=== PATIENT | male | born 1950 | race Hispanic/Latino ===

== ENCOUNTER 2018-09-02 12:06 | Inpatient (IN) | payer MEDICARE ==
[2018-09-02] MEDS ORDERED: TYLENOL PO ONE (12:41)
--- NOTE | 2018-09-02 12:41 | Emergency Department Report ---
ED General Adult HPI - General Chief complaint: Dyspnea/Respdistress Stated complaint: ALTERED MENTAL STATUS/DAISY Time Seen by Provider: 09/02/18 12:23 Source: EMS Mode of arrival: Stretcher Limitations: Altered Mental Status, Physical Limitation - History of Present Illness Initial comments: 68-year-old presents to ED with altered mental status. Patient and by EMS, was found at home sitting in feces. The patient's brother called EMS because he had been unable to reach him for the last 4 days. Patient's speech is slurred, able to state his name and knows that he is in the hospital. The patient has no complaints. Per EMS, pt was 92% RA upon arrival, albuterol neb initated. -: unknown Associated Symptoms: denies: chest pain, headaches - Related Data Allergies Allergy/AdvReac Type Severity Reaction Status Date / Time No Known Allergies Allergy Verified 09/02/18 13:48 ED Review of Systems ROS: Stated complaint: ALTERED MENTAL STATUS/DAISY Other details as noted in HPI Comment: Unobtainable due to pts medical conditions (altered mental status) ED Past Medical Hx - Past Medical History Previous Medical History?: Yes Hx COPD: Yes - Social History Smoking Status: Unknown if ever smoked ED Physical Exam - General Limitations: Altered Mental Status, Physical Limitation General appearance: alert, other (appears dissheveled) - Head Head exam: Present: atraumatic, normocephalic - Eye Eye exam: Present: normal appearance - ENT ENT exam: Present: mucous membranes dry - Neck Neck exam: Present: normal inspection - Respiratory Respiratory exam: Present: other (tachypneic) - Cardiovascular Cardiovascular Exam: Present: normal rhythm, tachycardia - GI/Abdominal GI/Abdominal exam: Present: soft, distended (mildly), hernia (umbilical). Absent: tenderness - Extremities Exam Extremities exam: Present: normal inspection - Neurological Exam Neurological exam: Present: alert, altered (states name, knows he is in a hospital but thinks this is [facility]), other (5/5 BUE strength; 4/5 BLE strength) - Psychiatric Psychiatric exam: Present: normal affect, normal mood - Skin Skin exam: Present: warm, dry, intact, normal color ED Course Vital Signs 09/02/18 09/02/18 09/02/18 12:08 12:14 12:15 Temperature Pulse Rate 128 H 127 H Respiratory 39 H Rate Blood Pressure 119/90 119/90 O2 Sat by Pulse 97 94 96 Oximetry 09/02/18 09/02/18 09/02/18 12:30 12:46 12:54 Temperature 100.9 F H Pulse Rate 129 H 125 H Respiratory 31 H 17 Rate Blood Pressure 119/90 130/84 O2 Sat by Pulse 94 92 Oximetry 09/02/18 09/02/18 09/02/18 13:23 13:30 13:45 Temperature Pulse Rate 119 H 121 H 115 H Respiratory 47 H 27 H 47 H Rate Blood Pressure 119/90 120/90 135/86 O2 Sat by Pulse 95 97 94 Oximetry 09/02/18 14:00 Temperature Pulse Rate 118 H Respiratory 48 H Rate Blood Pressure 131/85 O2 Sat by Pulse 92 Oximetry ED Medical Decision Making - Lab Data Result diagrams: 09/02/18 12:35 09/02/18 13:36 - EKG Data -: EKG Interpreted by Tx EKG shows normal: sinus rhythm, axis Rate: tachycardia - EKG Data Interpretation: other (RBBB, LAFB) - Radiology Data Radiology results: report reviewed, image reviewed - Medical Decision Making 68-year-old male presents to ED with altered mental status. Patient last heard from 4 days ago. Here in ED patient had slurred speech, alert and oriented to self and place. Patient moves all extremities. Here in ED patient had a low- grade temp of 100.9, and tachycardic with right bundle branch block on EKG, blood pressure normal. CT head shows no acute abnormalities. Chest x-ray normal. Patient's slightly tachypneic, however, ABG are unremarkable. UA negative for infection. Labs show evidence of dehydration with hypernatremia, elevated BUN and creatinine. Lactic acid also elevated to 3.2, so IV fluids and antibiotics given. Blood cultures and urine cultures also drawn. Drug screen and EtOH level all negative. D-dimer is elevated, so CTA Chest ordered to evaluate for PE. CTA pending. Spoke with Dr Francis, hospitalist, about patient. Agrees to admit the patient and follow-up on CTA results. - Differential Diagnosis CVA, infection, dehydration, rhabdomyolysis, intoxication, PE Critical Care Time: Yes Critical care time in (mins) excluding proc time.: 35 Critical care attestation.: If time is entered above; I have spent that time in minutes in the direct care of this critically ill patient, excluding procedure time. Critical Care Time: 35 minutes ED Disposition Clinical Impression: Altered mental status, Dehydration, Hypernatremia, Acute renal failure Disposition: OP ADMIT IP TO THIS HOSP Is pt being admited?: Yes Condition: Stable Referrals: LUCIO SELF MD [Primary Care Provider] - 3-5 Days Time of Disposition: 14:51
[2018-09-02] MEDS ORDERED: TYLENOL PR ONE (12:55)
[2018-09-02 13:01] LABS: Basophils # (Auto) 0.1 K/mm3 (0.0-0.1); Basophils % (Auto) 0.6 % (0.0-1.8); Eosinophils % (Auto) 0.1 % (0.0-4.3); Hematocrit 57.7 % (35.5-45.6); Hemoglobin 18.7 gm/dl (11.8-15.2); Lymphocytes # (Auto) 0.9 K/mm3 (1.2-5.4); Lymphocytes % (Auto) 8.8 % (13.4-35.0); Mean Corpuscular HGB Conc 32 % (32-34); Mean Corpuscular Volume 94 fl (84-94); Monocytes # (Auto) 0.8 K/mm3 (0.0-0.8); Monocytes % (Auto) 7.3 % (0.0-7.3); Red Blood Count 6.15 M/mm3 (3.65-5.03); Red Cell Distribution Width 15.5 % (13.2-15.2)
[2018-09-02 13:09] LABS: INR 1.74 (0.87-1.13)
[2018-09-02 13:10] LABS: Partial Thromboplastin Time 32.5 Sec. (24.2-36.6)
--- NOTE | 2018-09-02 13:14 | XRay Report ---
AP CHEST: HISTORY: Altered mental status, shortness of breath AP view of the chest demonstrates a normal mediastinal and cardiac contour with clear lungs and normal bony and soft tissue structures. IMPRESSION: Unremarkable AP chest.
--- NOTE | 2018-09-02 13:20 | Cat Scan Report ---
CT HEAD WITHOUT CONTRAST: HISTORY: Altered mental status. TECHNIQUE: Sequential 2.5mm CT images. COMPARISON: none. FINDINGS: Cerebral Parenchyma: Within normal limits. Cerebellum: Within normal limits. Brainstem: Within normal limits. Ventricles: Normal. Sella: Normal. Extra-axial spaces: Normal. Basal Cisterns: Normal. Intracranial Hemorrhage: None. Midline Shift: None. Calvarium: Normal. Sinuses: Normal. Mastoid Air Cells: Normal. Visualized Orbits: Normal. IMPRESSION: Cranial CT scan within normal limits.
[2018-09-02] MEDS ORDERED: NACL 0.9% 1000 ML 2,000 ML ONE (13:21)
[2018-09-02 13:31] LABS: Platelet Count 327 K/mm3 (140-440)
[2018-09-02] MEDS ORDERED: NACL 0.9% 1000 ML IV ONE (13:31)
[2018-09-02] MEDS ORDERED: ZOSYN/NS 4.5GM/100ML 4.5 GM/100 ML VIAL IV ONE (13:32)
[2018-09-02 14:27] LABS: Bacteria,Urine 1+ /HPF (Negative); Bilirubin,Urine NEG (Negative); Blood,Urine MOD (Negative); Color,Urine Amber (Yellow); Mucus,Urine FEW /HPF
[2018-09-02 14:43] LABS: Albumin 2.6 g/dL (3.9-5); Bilirubin,Direct 0.3 mg/dL (0-0.2); Calcium 10.8 mg/dL (8.4-10.2)
[2018-09-02 14:45] LABS: Amphetamine Screen,Urine PRESUMPTIVE NEGATIVE; Benzodiazepines Screen,Urine PRESUMPTIVE NEGATIVE; Cannabinoid Screen,Urine PRESUMPTIVE NEGATIVE; Cocaine Screen,Urine PRESUMPTIVE NEGATIVE; Methadone Screen,Urine PRESUMPTIVE NEGATIVE; Opiate Screen,Urine PRESUMPTIVE NEGATIVE
[2018-09-02] MEDS ORDERED: PHENERGAN PR PRN (15:03)
[2018-09-02] MEDS ORDERED: REGLAN PO PRN (15:03)
[2018-09-02] MEDS ORDERED: MILK OF MAGNESIA PO PRN (15:03)
[2018-09-02] MEDS ORDERED: ZOFRAN IV PRN (15:03)
[2018-09-02] MEDS ORDERED: TYLENOL PO PRN (15:03)
[2018-09-02] MEDS ORDERED: DULCOLAX PR PRN (15:03)
--- NOTE | 2018-09-02 15:05 | History and Physical Report ---
History of Present Illness Chief complaint: confused, weak History of present illness: 68 YO Male with Obesity Hypoventilation, COPD presents to ED for evaluation. Pt is confused, lethargic and unable to provide history. Pt history provided by his brother who is at bedside during exam and interview. As per brother, the patient has not returned phone calls over the past 4 days. As a result, the brother went to the home but the patient did not answer the door. Law Enforcement notified, and entry into the home was obtained. The patient was found down and covered in his own feces. Pt exhibited slurred speech, confusion. EMS notified and upon arrival, the patient was found to have a neurologic deficit. A code stroke was called, and the patient was transported to [facility]. Pt seen and evaluated in ED and found to have evidence of CVA as well as SIRS, Acidosis, and Encephalopathy. Pt admitted to telemetry and initiated on CVA protocol. No further history obtainable. Past History Past Medical History: COPD Past Surgical History: No surgical history, Other (reviewed) Social history: single, Lives alone, smoking. denies: alcohol abuse, prescription drug abuse, IV drug use Family history: no significant family history (reviewed) Medications and Allergies Allergies Allergy/AdvReac Type Severity Reaction Status Date / Time No Known Allergies Allergy Verified 09/02/18 13:48 Review of Systems ROS unobtainable: due to mental status Exam - Constitutional Vitals: Temp Pulse Resp BP Pulse Ox 100.9 F H 118 H 48 H 131/85 92 09/02/18 12:54 09/02/18 14:00 09/02/18 14:00 09/02/18 14:00 09/02/18 14:00 General appearance: Present: mild distress, obese - EENT Eyes: Present: miosis - Respiratory Respiratory: bilateral: diminished, rhonchi - Cardiovascular Rhythm: regular Heart Sounds: Present: S1 & S2 - Extremities Extremities: pulses symmetrical, No edema Peripheral Pulses: within normal limits - Abdominal General gastrointestinal: Present: soft, non-tender, non-distended, normal bowel sounds Male genitourinary: Present: normal - Integumentary Integumentary: Present: clear, dry, clammy, decreased turgor - Musculoskeletal Musculoskeletal: generalized weakness - Psychiatric Psychiatric: no appropriate mood/affect, no intact judgment & insight, no memory intact - Neurologic Neurologic: moves all extremities, no gait normal Results - Labs CBC & Chem 7: 09/02/18 12:35 09/02/18 13:36 Labs: Abnormal lab results 09/02/18 09/02/18 09/02/18 Range/Units 12:35 12:35 12:35 RBC 6.15 H (3.65-5.03) M/mm3 Hgb 18.7 H (11.8-15.2) gm/dl Hct 57.7 H (35.5-45.6) % RDW 15.5 H (13.2-15.2) % Lymph % (Auto) 8.8 L (13.4-35.0) % Lymph # 0.9 L (1.2-5.4) K/mm3 Seg Neutrophils % 83.2 H (40.0-70.0) % Seg Neutrophils # 8.9 H (1.8-7.7) K/mm3 PT 20.8 H (12.2-14.9) Sec. INR 1.74 H (0.87-1.13) D-Dimer 4180.35 H (0-234) ng/mlDDU Sodium (137-145) mmol/L Chloride (98-107) mmol/L BUN (9-20) mg/dL Glucose (75-100) mg/dL POC Glucose (70-105) Lactic Acid (0.7-2.0) mmol/L Calcium (8.4-10.2) mg/dL Direct Bilirubin (0-0.2) mg/dL Albumin (3.9-5) g/dL Lipase (13-60) units/L Salicylates < 0.3 L (2.8-20.0) mg/dL Acetaminophen (10.0-30.0) ug/mL 09/02/18 09/02/18 09/02/18 Range/Units 12:35 12:35 12:35 RBC (3.65-5.03) M/mm3 Hgb (11.8-15.2) gm/dl Hct (35.5-45.6) % RDW (13.2-15.2) % Lymph % (Auto) (13.4-35.0) % Lymph # (1.2-5.4) K/mm3 Seg Neutrophils % (40.0-70.0) % Seg Neutrophils # (1.8-7.7) K/mm3 PT (12.2-14.9) Sec. INR (0.87-1.13) D-Dimer (0-234) ng/mlDDU Sodium (137-145) mmol/L Chloride (98-107) mmol/L BUN (9-20) mg/dL Glucose (75-100) mg/dL POC Glucose 167 H (70-105) Lactic Acid 3.20 H* (0.7-2.0) mmol/L Calcium (8.4-10.2) mg/dL Direct Bilirubin (0-0.2) mg/dL Albumin (3.9-5) g/dL Lipase (13-60) units/L Salicylates (2.8-20.0) mg/dL Acetaminophen < 5.0 L (10.0-30.0) ug/mL 09/02/18 Range/Units 13:36 RBC (3.65-5.03) M/mm3 Hgb (11.8-15.2) gm/dl Hct (35.5-45.6) % RDW (13.2-15.2) % Lymph % (Auto) (13.4-35.0) % Lymph # (1.2-5.4) K/mm3 Seg Neutrophils % (40.0-70.0) % Seg Neutrophils # (1.8-7.7) K/mm3 PT (12.2-14.9) Sec. INR (0.87-1.13) D-Dimer (0-234) ng/mlDDU Sodium 159 H (137-145) mmol/L Chloride 114.7 H (98-107) mmol/L BUN 90 H (9-20) mg/dL Glucose 172 H (75-100) mg/dL POC Glucose (70-105) Lactic Acid (0.7-2.0) mmol/L Calcium 10.8 H (8.4-10.2) mg/dL Direct Bilirubin 0.3 H (0-0.2) mg/dL Albumin 2.6 L (3.9-5) g/dL Lipase 81 H (13-60) units/L Salicylates (2.8-20.0) mg/dL Acetaminophen (10.0-30.0) ug/mL Assessment and Plan - Patient Problems (1) CVA (cerebral vascular accident) Current Visit: Yes Status: Acute Qualifiers: Precerebral and cerebral artery: posterior cerebral artery Plan to address problem: Admit to telemetry, CT Head, MRI Brain, MRA Brain, Echo, EEG, Carotid Doppler, Antiplatelet therapy, lipid panel, neuro checks, seizure precautions, PT/OT/Speech Therapy (2) Encephalopathy Current Visit: Yes Status: Acute Plan to address problem: CT head, thyroid panel, neuro checks, (3) SIRS (systemic inflammatory response syndrome) Current Visit: Yes Status: Acute Plan to address problem: Empiric antibiotic therapy, IVF resuscitations, CBC, CMP,. (4) Obesity hypoventilation syndrome Current Visit: Yes Status: Acute Plan to address problem: supplemental oxygen, nebulizer therapy, ABG, NIPPV as clinically indicated. (5) DVT prophylaxis Current Visit: Yes Status: Acute
--- NOTE | 2018-09-02 18:36 | Vascular Lab Report ---
FINAL REPORT PROCEDURE: Bilateral duplex carotid artery ultrasound. TECHNIQUE: Duplex Doppler ultrasound of the common, internal and external carotid arteries and the v ertebral arteries was performed bilaterally. Hsu scale imaging, velocity spectral waveform analysis, and color flow Doppler were employed. CPT 35900 HISTORY: Stroke. COMPARISON: No prior studies are available for comparison. FINDINGS: Note: Measurement of carotid stenosis is based on flow velocity values that correlate with the [place] Symptomatic Carotid Endarterectomy Trial (NASCET) based stenosis criteria using the internal carotid artery diameter as the denominator for stenosis calculation. CPT 3100F Right side: The right common carotid artery appears patent visually. There is no significant plaque i dentified. There is a small amount of plaque identified at the bifurcation. The peak systolic velocit y measurements are as follows: Distal right common carotid artery 59.9 centimeters/second, mid right internal carotid artery 90.4 centimeters/second, right internal carotid/common carotid velocity ratio 1.51. These values are within normal limits and indicate a less than 50 percent stenosis of the inte rnal carotid artery. Antegrade flow is confirmed in the right vertebral artery. Left-side: The left common carotid artery appears widely patent. There is mild atherosclerotic plaque at the bifurcation. The peak systolic velocity measurements are as follows: Distal common carotid ar roseann 51.8 centimeters/second, distal internal carotid artery 44.1 centimeters/second, left internal c arotid/common carotid velocity ratio 0.85. These values are also within normal limits and indicate a less than 50 percent stenosis of the internal carotid artery. Antegrade flow is confirmed in the left vertebral artery. IMPRESSION: Less than 50 percent stenosis of both internal carotid arteries.
--- NOTE | 2018-09-02 21:35 | Magnetic Resonance Report ---
FINAL REPORT PROCEDURE: MR MRA/MRV HEAD WO CON TECHNIQUE: Axial 3-D [id number] MR angiography of the [place] and brain was performed. The source images were reconstructed in various views using maximum intensity projection. HISTORY: strokeinpatient - some pt motion COMPARISON: No prior studies are available for comparison. FINDINGS: Vertebral arteries: Normal. Basilar artery: Normal. Internal carotid arteries: Normal. Anterior cerebral arteries: Normal. Middle cerebral arteries: Normal. Posterior cerebral arteries: Normal. Branch occlusions: None. Vascular malformations: None. IMPRESSION: Normal Examination
--- NOTE | 2018-09-02 21:38 | Magnetic Resonance Report ---
FINAL REPORT PROCEDURE: MR BRAIN WO CON TECHNIQUE: Magnetic resonance imaging of the brain was performed without contrast material. HISTORY: strokeinpatient - pt motion; pt would not allow me to repeat coronal sequence COMPARISON: No prior studies are available for comparison. FINDINGS: Skull base and calvarium: Normal. Paranasal sinuses: There is fluid in the right frontal sinus.. Cerebellum: No evidence of hemorrhage, ischemia or mass. Brainstem: No evidence of hemorrhage, ischemia or mass. Cerebrum: No evidence of hemorrhage, ischemia or mass. T2 and FLAIR images demonstrate high signal in tensity in the deep white matter consistent with chronic ischemic gliosis. Diffusion images demonstra te no evidence of acute ischemic event. Ventricles: There is moderate central and cortical atrophy. There is no hydrocephalus or asymmetry.. Pituitary gland and sella: Normal. Globes and orbits: Normal. Vasculature: Normal arterial and venous flow voids. Other: None. IMPRESSION: There are chronic involutional and ischemic changes. There is no evidence of acute ischemic injury. T here is no hemorrhage, edema, mass, mass effect or midline shift.
[2018-09-03] MEDS ORDERED: LOPRESSOR IV NR (04:43)
--- NOTE | 2018-09-03 09:53 | Cat Scan Report ---
CTA CHEST: HISTORY: Elevated d-dimer. COMPARISON: none. TECHNIQUE: Helical CT in 1.25mm intervals following IV contrast. Pulmonary embolus protocol. Sagittal and coronal reformatted images. Rotational MIP images. FINDINGS: Contrast bolus is satisfactory. No pulmonary embolus is identified. Thyroid gland: Normal. Tracheobronchial tree: Normal. Esophagus: Normal. Heart: Normal. Pericardium: Normal. Mediastinum: Normal. Lung Hopper: There are moderate underlying centrilobular emphysematous changes. Groundglass infiltrate is identified in the posterior segment of the right lower lobe which is concerning for pneumonia. The remainder of the lungs are clear. No evidence for mass or nodule. Pleural Spaces: Normal. Musculoskeletal: Intact. Moderate thoracic spondylosis is noted. IMPRESSION: No evidence for pulmonary embolus. Emphysema. Right lower lobe infiltrate concerning for pneumonia.
[2018-09-03] MEDS ORDERED: ASPIRIN PO SCH (10:00)
[2018-09-03 11:55] LABS: INR 1.86 (0.87-1.13)
[2018-09-03 11:59] LABS: Calcium 10.2 mg/dL (8.4-10.2)
[2018-09-03] MEDS ORDERED: NACL 0.45% 1000 ML 1,000 ML IV SCH (12:00)
[2018-09-03 12:02] LABS: Alanine Aminotransferase 20 units/L (7-56); Albumin 2.1 g/dL (3.9-5)
[2018-09-03 12:05] LABS: Bilirubin,Direct < 0.2 mg/dL (0-0.2)
[2018-09-03] MEDS: ATIVAN IV PRN ×2 (13:02→21:41)
--- NOTE | 2018-09-03 14:41 | Progress Note ---
Assessment and Plan Assessment and plan: 68 YO Male with Obesity Hypoventilation, COPD presents to ED for evaluation. Pt is confused, lethargic and unable to provide history. Pt history provided by his brother who is at bedside during exam and interview. As per brother, the patient has not returned phone calls over the past 4 days. As a result, the brother went to the home but the patient did not answer the door. Law Enforcement notified, and entry into the home was obtained. The patient was found down and covered in his own feces. Pt exhibited slurred speech, confusion. EMS notified and upon arrival, the patient was found to have a neurologic deficit. A code stroke was called, and the patient was transported to [facility]. Pt seen and evaluated in ED and found to have evidence of CVA as well as SIRS, Acidosis, and Encephalopathy. Pt admitted to telemetry and initiated on CVA protocol. Acute Metabolic encephalopathy Hypernatremia Aspiration Pneumonia Obesity Hypoventilation syndrome ETOH use disorder hYPOTHYRODISIM Secondary Coagulopathy ?UNDERLYING LIVER DISEASE VS IATROGENIC MEDICATION Sepsis Plan Continue supportive care Start D5W and obtain serial Na level Start CIWA protocol Seizure precautions Obtain HOME MEDS LIST Continue Empiric abx Aspiration precautions DVT/GI prophy Call placed to family to obtain more clinical information History Interval history: Patient seen and examined, remains with some encephalopathic changes but more awake than when he was admitted. Denies any chest pain, nausea, vomiting at this time. Hospitalist Physical - Constitutional Vitals: Temp Pulse Resp BP Pulse Ox 98.1 F 94 H 36 H 140/83 92 09/03/18 07:57 09/03/18 07:57 09/03/18 07:57 09/03/18 07:57 09/03/18 07:57 General appearance: Present: mild distress, obese, disheveled - EENT Eyes: Present: PERRL, EOM intact ENT: poor dentition - Neck Neck: Present: supple, normal ROM - Respiratory Respiratory effort: normal Respiratory: bilateral: CTA - Cardiovascular Rhythm: regular Heart Sounds: Present: S1 & S2. Absent: systolic murmur - Extremities Extremities: no ischemia, pulses intact, pulses symmetrical, No edema, normal temperature, normal color, Full ROM Peripheral Pulses: within normal limits - Abdominal General gastrointestinal: soft, non-tender, non-distended - Integumentary Integumentary: Present: clear, warm - Psychiatric Psychiatric: appropriate mood/affect, intact judgment & insight, memory intact, cooperative - Neurologic Neurologic: CNII-XII intact, moves all extremities - Allied Health Allied health notes reviewed: nursing Results - Labs CBC & Chem 7: 09/02/18 12:35 09/03/18 11:26 Labs: Laboratory Last Values WBC 10.8 K/mm3 (4.5-11.0) 09/02/18 12:35 RBC 6.15 M/mm3 (3.65-5.03) H 09/02/18 12:35 Hgb 18.7 gm/dl (11.8-15.2) H 09/02/18 12:35 Hct 57.7 % (35.5-45.6) H 09/02/18 12:35 MCV 94 fl (84-94) 09/02/18 12:35 MCH 30 pg (28-32) 09/02/18 12:35 MCHC 32 % (32-34) 09/02/18 12:35 RDW 15.5 % (13.2-15.2) H 09/02/18 12:35 Plt Count 327 K/mm3 (140-440) 09/02/18 12:35 Lymph % (Auto) 8.8 % (13.4-35.0) L 09/02/18 12:35 [place] % (Auto) 7.3 % (0.0-7.3) 09/02/18 12:35 Eos % (Auto) 0.1 % (0.0-4.3) 09/02/18 12:35 Baso % (Auto) 0.6 % (0.0-1.8) 09/02/18 12:35 Lymph # 0.9 K/mm3 (1.2-5.4) L 09/02/18 12:35 [place] # 0.8 K/mm3 (0.0-0.8) 09/02/18 12:35 Eos # 0.0 K/mm3 (0.0-0.4) 09/02/18 12:35 Baso # 0.1 K/mm3 (0.0-0.1) 09/02/18 12:35 Seg Neutrophils % 83.2 % (40.0-70.0) H 09/02/18 12:35 Seg Neutrophils # 8.9 K/mm3 (1.8-7.7) H 09/02/18 12:35 PT 21.8 Sec. (12.2-14.9) H 09/03/18 11:26 INR 1.86 (0.87-1.13) H 09/03/18 11:26 APTT 32.5 Sec. (24.2-36.6) 09/02/18 12:35 D-Dimer 4180.35 ng/mlDDU (0-234) H 09/02/18 12:35 Sodium 160 mmol/L (137-145) H 09/03/18 11:26 Potassium 4.4 mmol/L (3.6-5.0) 09/03/18 11:26 Chloride 122.6 mmol/L (98-107) H 09/03/18 11:26 Carbon Dioxide 26 mmol/L (22-30) 09/03/18 11:26 Anion Gap 16 mmol/L 09/03/18 11:26 BUN 69 mg/dL (9-20) H 09/03/18 11:26 Creatinine 1.3 mg/dL (0.8-1.5) 09/03/18 11:26 Estimated GFR 55 ml/min 09/03/18 11:26 BUN/Creatinine Ratio 53 % 09/03/18 11:26 Glucose 127 mg/dL (75-100) H 09/03/18 11:26 POC Glucose 167 (70-105) H 09/02/18 12:35 Lactic Acid 1.30 mmol/L (0.7-2.0) 09/02/18 16:45 Calcium 10.2 mg/dL (8.4-10.2) 09/03/18 11:26 Total Bilirubin 0.60 mg/dL (0.1-1.2) 09/03/18 11:26 Direct Bilirubin < 0.2 mg/dL (0-0.2) 09/03/18 11:26 Indirect Bilirubin 0.3 mg/dL 09/02/18 13:36 AST 27 units/L (5-40) 09/03/18 11:26 ALT 20 units/L (7-56) 09/03/18 11:26 Alkaline Phosphatase 67 units/L (35-129) 09/03/18 11:26 Ammonia 75.0 umol/L (25-60) H 09/03/18 11:26 Total Creatine Kinase 98 units/L (55-170) 09/02/18 13:36 Troponin T 0.018 ng/mL (0.00-0.029) 09/02/18 13:36 NT-Pro-B Natriuret Pep 873.7 pg/mL (0-900) 09/02/18 13:36 Total Protein 6.8 g/dL (6.3-8.2) 09/03/18 11:26 Albumin 2.1 g/dL (3.9-5) L 09/03/18 11:26 Albumin/Globulin Ratio 0.4 % 09/03/18 11:26 Lipase 81 units/L (13-60) H 09/02/18 13:36 TSH < 0.005 mlU/mL (0.270-4.200) L 09/02/18 16:45 Free T4 2.40 ng/dL (0.76-1.46) H 09/02/18 16:45 Urine Color [place] (Yellow) 09/02/18 14:06 Urine Turbidity Slightly-cloudy (Clear) 09/02/18 14:06 Urine pH 5.0 (5.0-7.0) 09/02/18 14:06 Ur Specific [place] 1.017 (1.003-1.030) 09/02/18 14:06 Urine Protein 30 mg/dl mg/dL (Negative) 09/02/18 14:06 Urine Glucose (UA) Neg mg/dL (Negative) 09/02/18 14:06 Urine Ketones Neg mg/dL (Negative) 09/02/18 14:06 Urine Blood Mod (Negative) 09/02/18 14:06 Urine Nitrite Neg (Negative) 09/02/18 14:06 Urine Bilirubin Neg (Negative) 09/02/18 14:06 Urine Urobilinogen 4.0 mg/dL (<2.0) 09/02/18 14:06 Ur Leukocyte Esterase Neg (Negative) 09/02/18 14:06 Urine WBC (Auto) 3.0 /HPF (0.0-6.0) 09/02/18 14:06 Urine RBC (Auto) 56.0 /HPF (0.0-6.0) 09/02/18 14:06 U Epithel Cells (Auto) < 1.0 /HPF (0-13.0) 09/02/18 14:06 Urine Bacteria (Auto) 1+ /HPF (Negative) 09/02/18 14:06 Urine Mucus Few /HPF 09/02/18 14:06 Salicylates < 0.3 mg/dL (2.8-20.0) L 09/02/18 12:35 Urine Opiates Screen Presumptive negative 09/02/18 13:59 Urine Methadone Screen Presumptive negative 09/02/18 13:59 Acetaminophen < 5.0 ug/mL (10.0-30.0) L 09/02/18 12:35 Ur Barbiturates Screen Presumptive negative 09/02/18 13:59 Ur Phencyclidine Scrn Presumptive negative 09/02/18 13:59 Ur Amphetamines Screen Presumptive negative 09/02/18 13:59 U Benzodiazepines Scrn Presumptive negative 09/02/18 13:59 Urine Cocaine Screen Presumptive negative 09/02/18 13:59 U Marijuana (THC) Screen Presumptive negative 09/02/18 13:59 Drugs of Abuse Note Disclamer 09/02/18 13:59 Plasma/Serum Alcohol < 0.01 % (0-0.07) 09/02/18 12:35 - Imaging and Cardiology Chest x-ray: image reviewed (PNEMONIA) CT Scan - head: image reviewed (no CVA)
--- NOTE | 2018-09-03 15:56 | Vascular Lab Report ---
FINAL REPORT EXAM: VL VENOUS DUPLEX LE BILAT HISTORY: dvt TECHNIQUE: Ultrasound examination of the right lower extremity venous system Ultrasound examination of the left lower extremity venous system PRIORS: None. FINDINGS: Right leg: Normal compressibility, vascular patency, and augmentation are present diffusely throughout the visua lized portion of the deep veins of the right leg. No abnormal intraluminal echoes are visualized to suggest thrombus. Left leg: Normal compressibility, vascular patency, and augmentation are present diffusely throughout the visua lized portion of the deep veins of the left leg. No abnormal intraluminal echoes are visualized to s uggest thrombus. IMPRESSION: No sonographic evidence of DVT in the right leg No sonographic evidence of DVT in the left leg
[2018-09-03 17:14] LABS: Chol/HDL Ratio 5.52 %
[2018-09-03] MEDS: D5W 1,000 ML IV SCH (18:16)
[2018-09-04] MEDS ORDERED: ANUCORT-HC PR ONE (04:59)
--- NOTE | 2018-09-04 05:09 | Event Note ---
Date: 09/04/18 PATIENT NOTED BY NURSE TO HAVE BRIGHT RED BLOOD IN THE RECTUM . NO HISTORY OF PAIN ,NAUSEA OR VOMITING, NO DIZZYNESS VITAL SIGN STABLE. PLAN; 1. STAT CBC FOLLOWED BY H/H Q6H 2. G.I CONSULT WITH [employer] 3. I.V PROTONIX 40MG BID 4. ANUSOL HC SUPPOSITORY X1 DOSE 5. NPO UNTIL SEEN BY Molly 6.CONTINUE CURRENT I.V FLUID
[2018-09-04 05:36] LABS: Basophils % (Auto) 0.3 % (0.0-1.8); Eosinophils # (Auto) 0.1 K/mm3 (0.0-0.4); Hemoglobin 15.5 gm/dl (11.8-15.2); Lymphocytes # (Auto) 0.8 K/mm3 (1.2-5.4); Lymphocytes % (Auto) 11.8 % (13.4-35.0); Mean Corpuscular HGB Conc 32 % (32-34); Mean Corpuscular Volume 94 fl (84-94); Monocytes # (Auto) 0.5 K/mm3 (0.0-0.8); Monocytes % (Auto) 6.8 % (0.0-7.3); Platelet Count 268 K/mm3 (140-440); Red Blood Count 5.12 M/mm3 (3.65-5.03); Red Cell Distribution Width 15.9 % (13.2-15.2)
[2018-09-04] MEDS: D5W 1,000 ML IV SCH (05:37)
[2018-09-04 06:01] LABS: Alanine Aminotransferase 18 units/L (7-56); Albumin 2.7 g/dL (3.9-5); BUN/Creatinine Ratio 57; Blood Urea Nitrogen 57 mg/dL (9-20); Hemolysis Index 6
--- NOTE | 2018-09-04 07:53 | Progress Note ---
Assessment and Plan Assessment and plan: 68 YO Male with Obesity Hypoventilation, COPD presents to ED for evaluation. Pt is confused, lethargic and unable to provide history. Pt history provided by his brother who is at bedside during exam and interview. As per brother, the patient has not returned phone calls over the past 4 days. As a result, the brother went to the home but the patient did not answer the door. Law Enforcement notified, and entry into the home was obtained. The patient was found down and covered in his own feces. Pt exhibited slurred speech, confusion. EMS notified and upon arrival, the patient was found to have a neurologic deficit. A code stroke was called, and the patient was transported to [facility]. Pt seen and evaluated in ED and found to have evidence of CVA as well as SIRS, Acidosis, and Encephalopathy. Pt admitted to telemetry and initiated on CVA protocol. Acute Metabolic encephalopathy Hypernatremia Rectal Bleed. Aspiration Pneumonia Obesity Hypoventilation syndrome ETOH use disorder hYPOTHYRODISIM Moderate Protien calorie Malnutrition Secondary Coagulopathy ?UNDERLYING LIVER DISEASE VS IATROGENIC MEDICATION Sepsis Plan Continue supportive care, clinically has not been requiring ativan. Continue D5W and obtain serial Na level Start FREE WATER AT 250CC Q4HR Nephrology consult to assist Discontinue ASA. NO CVA and now with rectal bleed. Await GI input. Start CIWA protocol Seizure precautions Obtain HOME MEDS LIST-PENDING Continue Empiric abx Aspiration precautions DVT/GI prophy Call placed to family to obtain more clinical information Still awaiting home meds Discussed with Nursing staff and also GI team History Interval history: Patient seen and examined, remains confused. no other complaints. Hospitalist Physical - Physical exam Narrative exam: General appearance: Present: mild distress, obese, disheveled - EENT Eyes: Present: PERRL, EOM intact ENT: poor dentition - Neck Neck: Present: supple, normal ROM - Respiratory Respiratory effort: normal Respiratory: bilateral: CTA - Cardiovascular Rhythm: regular Heart Sounds: Present: S1 & S2. Absent: systolic murmur - Extremities Extremities: no ischemia, pulses intact, pulses symmetrical, No edema, normal temperature, normal color, Full ROM Peripheral Pulses: within normal limits - Abdominal General gastrointestinal: soft, non-tender, non-distended - Integumentary Integumentary: Present: clear, warm- Hemorrhoids - Psychiatric Psychiatric: Confuse - Neurologic Neurologic: CNII-XII intact, moves all extremities, confused - Allied Health Allied health notes reviewed: nursing - Constitutional Vitals: Temp Pulse Resp BP Pulse Ox 98.1 F 92 H 19 136/98 97 09/04/18 04:13 09/04/18 04:56 09/04/18 04:13 09/04/18 04:13 09/04/18 04:13 General appearance: Present: mild distress, obese, disheveled Results - Labs CBC & Chem 7: 09/04/18 13:35 09/04/18 13:35 Labs: Laboratory Last Values WBC 6.9 K/mm3 (4.5-11.0) 09/04/18 05:20 RBC 5.12 M/mm3 (3.65-5.03) H 09/04/18 05:20 Hgb 15.5 gm/dl (11.8-15.2) H D 09/04/18 05:20 Hct 48.0 % (35.5-45.6) H D 09/04/18 05:20 MCV 94 fl (84-94) 09/04/18 05:20 MCH 30 pg (28-32) 09/04/18 05:20 MCHC 32 % (32-34) 09/04/18 05:20 RDW 15.9 % (13.2-15.2) H 09/04/18 05:20 Plt Count 268 K/mm3 (140-440) 09/04/18 05:20 Lymph % (Auto) 11.8 % (13.4-35.0) L 09/04/18 05:20 [place] % (Auto) 6.8 % (0.0-7.3) 09/04/18 05:20 Eos % (Auto) 1.0 % (0.0-4.3) 09/04/18 05:20 Baso % (Auto) 0.3 % (0.0-1.8) 09/04/18 05:20 Lymph # 0.8 K/mm3 (1.2-5.4) L 09/04/18 05:20 [place] # 0.5 K/mm3 (0.0-0.8) 09/04/18 05:20 Eos # 0.1 K/mm3 (0.0-0.4) 09/04/18 05:20 Baso # 0.0 K/mm3 (0.0-0.1) 09/04/18 05:20 Seg Neutrophils % 80.1 % (40.0-70.0) H 09/04/18 05:20 Seg Neutrophils # 5.5 K/mm3 (1.8-7.7) 09/04/18 05:20 PT 21.8 Sec. (12.2-14.9) H 09/03/18 11:26 INR 1.86 (0.87-1.13) H 09/03/18 11:26 APTT 32.5 Sec. (24.2-36.6) 09/02/18 12:35 D-Dimer 4180.35 ng/mlDDU (0-234) H 09/02/18 12:35 Sodium 166 mmol/L (137-145) H* 09/04/18 05:20 Potassium 4.2 mmol/L (3.6-5.0) 09/04/18 05:20 Chloride 129.2 mmol/L (98-107) H 09/04/18 05:20 Carbon Dioxide 28 mmol/L (22-30) 09/04/18 05:20 Anion Gap 15 mmol/L 09/04/18 05:20 BUN 57 mg/dL (9-20) H 09/04/18 05:20 Creatinine 1.0 mg/dL (0.8-1.5) 09/04/18 05:20 Estimated GFR > 60 ml/min 09/04/18 05:20 BUN/Creatinine Ratio 57 % 09/04/18 05:20 Glucose 137 mg/dL (75-100) H 09/04/18 05:20 POC Glucose 167 (70-105) H 09/02/18 12:35 Lactic Acid 1.30 mmol/L (0.7-2.0) 09/02/18 16:45 Calcium 10.0 mg/dL (8.4-10.2) 09/04/18 05:20 Total Bilirubin 0.60 mg/dL (0.1-1.2) 09/04/18 05:20 Direct Bilirubin < 0.2 mg/dL (0-0.2) 09/03/18 11:26 Indirect Bilirubin 0.3 mg/dL 09/02/18 13:36 AST 21 units/L (5-40) 09/04/18 05:20 ALT 18 units/L (7-56) 09/04/18 05:20 Alkaline Phosphatase 66 units/L (35-129) 09/04/18 05:20 Ammonia 75.0 umol/L (25-60) H 09/03/18 11:26 Total Creatine Kinase 98 units/L (55-170) 09/02/18 13:36 Troponin T 0.018 ng/mL (0.00-0.029) 09/02/18 13:36 NT-Pro-B Natriuret Pep 873.7 pg/mL (0-900) 09/02/18 13:36 Total Protein 5.8 g/dL (6.3-8.2) L 09/04/18 05:20 Albumin 2.7 g/dL (3.9-5) L 09/04/18 05:20 Albumin/Globulin Ratio 0.9 % 09/04/18 05:20 Triglycerides 150 mg/dL (2-149) H 09/03/18 Unknown Cholesterol 116 mg/dL (50-199) 09/03/18 Unknown LDL Cholesterol Direct 69 mg/dL (50-130) 09/03/18 Unknown HDL Cholesterol 21 mg/dL (40-59) L 09/03/18 Unknown Cholesterol/HDL Ratio 5.52 % 09/03/18 Unknown Lipase 81 units/L (13-60) H 09/02/18 13:36 TSH < 0.005 mlU/mL (0.270-4.200) L 09/02/18 16:45 Free T4 2.40 ng/dL (0.76-1.46) H 09/02/18 16:45 Urine Color [place] (Yellow) 09/02/18 14:06 Urine Turbidity Slightly-cloudy (Clear) 09/02/18 14:06 Urine pH 5.0 (5.0-7.0) 09/02/18 14:06 Ur Specific [place] 1.017 (1.003-1.030) 09/02/18 14:06 Urine Protein 30 mg/dl mg/dL (Negative) 09/02/18 14:06 Urine Glucose (UA) Neg mg/dL (Negative) 09/02/18 14:06 Urine Ketones Neg mg/dL (Negative) 09/02/18 14:06 Urine Blood Mod (Negative) 09/02/18 14:06 Urine Nitrite Neg (Negative) 09/02/18 14:06 Urine Bilirubin Neg (Negative) 09/02/18 14:06 Urine Urobilinogen 4.0 mg/dL (<2.0) 09/02/18 14:06 Ur Leukocyte Esterase Neg (Negative) 09/02/18 14:06 Urine WBC (Auto) 3.0 /HPF (0.0-6.0) 09/02/18 14:06 Urine RBC (Auto) 56.0 /HPF (0.0-6.0) 09/02/18 14:06 U Epithel Cells (Auto) < 1.0 /HPF (0-13.0) 09/02/18 14:06 Urine Bacteria (Auto) 1+ /HPF (Negative) 09/02/18 14:06 Urine Mucus Few /HPF 09/02/18 14:06 Salicylates < 0.3 mg/dL (2.8-20.0) L 09/02/18 12:35 Urine Opiates Screen Presumptive negative 09/02/18 13:59 Urine Methadone Screen Presumptive negative 09/02/18 13:59 Acetaminophen < 5.0 ug/mL (10.0-30.0) L 09/02/18 12:35 Ur Barbiturates Screen Presumptive negative 09/02/18 13:59 Ur Phencyclidine Scrn Presumptive negative 09/02/18 13:59 Ur Amphetamines Screen Presumptive negative 09/02/18 13:59 U Benzodiazepines Scrn Presumptive negative 09/02/18 13:59 Urine Cocaine Screen Presumptive negative 09/02/18 13:59 U Marijuana (THC) Screen Presumptive negative 09/02/18 13:59 Drugs of Abuse Note Disclamer 09/02/18 13:59 Plasma/Serum Alcohol < 0.01 % (0-0.07) 09/02/18 12:35
[2018-09-04] MEDS: PROTONIX IV SCH ×2 (10:00→22:10)
--- NOTE | 2018-09-04 13:14 | Gastroenterology Consultation ---
<HAROON CHURCH - Last Filed: 09/04/18 13:56> History of Present Illness - Reason for Consult Consult date: 09/04/18 rectal bleeding Requesting physician: LILY PARRA - History of Present Illness Patient is a 68 y/o male with PMH of obesity and COPD who was brought to ED after being found down at home with slurred speech and confusion. Upon admission head CT negative. Currently being treated for acute metabolic encephalopathy, hypernatremia, aspiration pneumonia, obesity hypoventilation syndrome, ETOH use disorder, hypothyroidism, moderate protein calorie malnutrition, secondary coagulopathy, and sepsis. He had an episode of rectal bleeding yesterday per nursing to which GI has been consulted. Patient is currently confused, lethargic and unable to provide history. No family at bedside. History obtained via chart review. Upon exam, rectal revealed large external hemorrhoids with old blood and brown stool. No melena or hematochezia. Prevsious GI history unknown. Past History Past Medical History: COPD Past Surgical History: No surgical history, Other (reviewed) Social history: single, Lives alone, smoking. denies: alcohol abuse, pres cription drug abuse, IV drug use Family history: no significant family history (reviewed) Medications and Allergies Allergies Allergy/AdvReac Type Severity Reaction Status Date / Time No Known Allergies Allergy Verified 09/02/18 13:48 Active Meds: Active Medications Acetaminophen (Tylenol) 650 mg PO Q4H PRN PRN Reason: Pain, Mild (1-3) Atorvastatin Calcium (Lipitor) 40 mg PO QHS ROXY Last Admin: 09/03/18 21:34 Dose: 40 mg Documented by: Bisacodyl (Dulcolax) 10 mg AL QDAY PRN PRN Reason: Constipation Dextrose (D5w) 1,000 mls @ 125 mls/hr IV DIRECT ROXY Lorazepam (Ativan) 4 mg IV Q1HR PRN PRN Reason: CIWA-Ar 16-25 Lorazepam (Ativan) 4 mg IV Q15MIN PRN PRN Reason: CIWA-Ar >25 Magnesium Hydroxide (Milk Of Magnesia) 30 ml PO Q4H PRN PRN Reason: Constipation Metoclopramide HCl (Reglan) 10 mg PO Q6H PRN PRN Reason: Nausea And Vomiting Ondansetron HCl (Zofran) 4 mg IV Q8H PRN PRN Reason: Nausea And Vomiting Pantoprazole Sodium (Protonix) 40 mg IV BID ROXY Promethazine HCl (Phenergan) 25 mg AL Q6H PRN PRN Reason: Nausea And Vomiting Sodium Chloride (Sodium Chloride Flush Syringe 10 Ml) 10 ml IV PRN PRN PRN Reason: LINE FLUSH medications reviewed/updated as required Review of Systems - Review of Systems ROS unobtainable: due to mental status Exam - Constitutional Vital Signs: Temp Pulse Resp BP Pulse Ox 98.1 F 92 H 44 H 145/100 97 09/04/18 08:06 09/04/18 04:56 09/04/18 08:06 09/04/18 08:06 09/04/18 04:13 General appearance: other (confused, lethargic) - Respiratory Respiratory: bilateral: CTA (anterior) - Cardiovascular Rhythm: regular Heart Sounds: Present: S1 & S2 - Gastrointestinal General gastrointestinal: Present: soft, non-distended, normal bowel sounds Rectal Exam: hemorrhoids (large external hemorrhoids with old blood), stool brown, other (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-Elizabeth NAVARRO) - Labs CBC & Chem 7: 09/04/18 05:20 09/04/18 09:11 Lab Results: Laboratory Results - last 24 hr 09/03/18 09/03/18 09/03/18 15:39 20:23 Unknown WBC RBC Hgb Hct MCV MCH MCHC RDW Plt Count Lymph % (Auto) [place] % (Auto) Eos % (Auto) Baso % (Auto) Lymph # [place] # Eos # Baso # Seg Neutrophils % Seg Neutrophils # Sodium 160 H 160 H Potassium Chloride Carbon Dioxide Anion Gap BUN Creatinine Estimated GFR BUN/Creatinine Ratio Glucose Calcium Total Bilirubin AST ALT Alkaline Phosphatase Total Protein Albumin Albumin/Globulin Ratio Triglycerides 150 H Cholesterol 116 LDL Cholesterol Direct 69 HDL Cholesterol 21 L Cholesterol/HDL Ratio 5.52 09/04/18 09/04/18 09/04/18 02:38 05:20 05:20 WBC 6.9 RBC 5.12 H Hgb 15.5 H D Hct 48.0 H D MCV 94 MCH 30 MCHC 32 RDW 15.9 H Plt Count 268 Lymph % (Auto) 11.8 L [place] % (Auto) 6.8 Eos % (Auto) 1.0 Baso % (Auto) 0.3 Lymph # 0.8 L [place] # 0.5 Eos # 0.1 Baso # 0.0 Seg Neutrophils % 80.1 H Seg Neutrophils # 5.5 Sodium 160 H 166 H* Potassium 4.2 Chloride 129.2 H Carbon Dioxide 28 Anion Gap 15 BUN 57 H Creatinine 1.0 Estimated GFR > 60 BUN/Creatinine Ratio 57 Glucose 137 H Calcium 10.0 Total Bilirubin 0.60 AST 21 ALT 18 Alkaline Phosphatase 66 Total Protein 5.8 L Albumin 2.7 L Albumin/Globulin Ratio 0.9 Triglycerides Cholesterol LDL Cholesterol Direct HDL Cholesterol Cholesterol/HDL Ratio 09/04/18 09:11 WBC RBC Hgb Hct MCV MCH MCHC RDW Plt Count Lymph % (Auto) [place] % (Auto) Eos % (Auto) Baso % (Auto) Lymph # [place] # Eos # Baso # Seg Neutrophils % Seg Neutrophils # Sodium 166 H* Potassium Chloride Carbon Dioxide Anion Gap BUN Creatinine Estimated GFR BUN/Creatinine Ratio Glucose Calcium Total Bilirubin AST ALT Alkaline Phosphatase Total Protein Albumin Albumin/Globulin Ratio Triglycerides Cholesterol LDL Cholesterol Direct HDL Cholesterol Cholesterol/HDL Ratio Assessment and Plan 1.rectal bleeding -H/H 15.5/48.0 -continue to monitor H/H and transfuse as needed -1 episode of rectal bleeding yesterday per nursing- rectal exam today revealed large external hemorrhoids with old blood and brown stool (no melena or hematemesis) -HD stable -etiology-likely 2/2 hemorrhoids vs other -no plans for colonoscopy at this time unless overt bleeding develops, recommend outpatient colonoscopy if not up to date -start on topical steroids for hemorrhoids- consider colorectal surgery consult if symptoms persist -okay for anticoagulants if needed -continue PPI and supportive care -further recommendations to follow <FARHAD DARLING - Last Filed: 09/04/18 14:30> Medications and Allergies Active Meds: Active Medications Acetaminophen (Tylenol) 650 mg PO Q4H PRN PRN Reason: Pain, Mild (1-3) Atorvastatin Calcium (Lipitor) 40 mg PO QHS ROXY Last Admin: 09/03/18 21:34 Dose: 40 mg Documented by: Bisacodyl (Dulcolax) 10 mg AL QDAY PRN PRN Reason: Constipation Hydrocortisone Acetate (Proctosol-Hc) 1 applic AL Q8H ROXY Dextrose (D5w) 1,000 mls @ 125 mls/hr IV DIRECT ROXY Lorazepam (Ativan) 4 mg IV Q1HR PRN PRN Reason: CIWA-Ar 16-25 Lorazepam (Ativan) 4 mg IV Q15MIN PRN PRN Reason: CIWA-Ar >25 Magnesium Hydroxide (Milk Of Magnesia) 30 ml PO Q4H PRN PRN Reason: Constipation Metoclopramide HCl (Reglan) 10 mg PO Q6H PRN PRN Reason: Nausea And Vomiting Ondansetron HCl (Zofran) 4 mg IV Q8H PRN PRN Reason: Nausea And Vomiting Pantoprazole Sodium (Protonix) 40 mg IV BID ROXY Last Admin: 09/04/18 10:00 Dose: 40 mg Documented by: Promethazine HCl (Phenergan) 25 mg AL Q6H PRN PRN Reason: Nausea And Vomiting Sodium Chloride (Sodium Chloride Flush Syringe 10 Ml) 10 ml IV PRN PRN PRN Reason: LINE FLUSH Exam - Constitutional Vital Signs: Temp Pulse Resp BP Pulse Ox 98.2 F 95 H 40 H 139/95 94 09/04/18 12:37 09/04/18 12:37 09/04/18 12:37 09/04/18 12:37 09/04/18 12:37 - Labs CBC & Chem 7: 09/04/18 13:35 09/04/18 09:11 Lab Results: Laboratory Results - last 24 hr 09/03/18 09/03/18 09/03/18 15:39 20:23 Unknown WBC RBC Hgb Hct MCV MCH MCHC RDW Plt Count Lymph % (Auto) [place] % (Auto) Eos % (Auto) Baso % (Auto) Lymph # [place] # Eos # Baso # Seg Neutrophils % Seg Neutrophils # Sodium 160 H 160 H Potassium Chloride Carbon Dioxide Anion Gap BUN Creatinine Estimated GFR BUN/Creatinine Ratio Glucose Calcium Total Bilirubin AST ALT Alkaline Phosphatase Total Protein Albumin Albumin/Globulin Ratio Triglycerides 150 H Cholesterol 116 LDL Cholesterol Direct 69 HDL Cholesterol 21 L Cholesterol/HDL Ratio 5.52 09/04/18 09/04/18 09/04/18 02:38 05:20 05:20 WBC 6.9 RBC 5.12 H Hgb 15.5 H D Hct 48.0 H D MCV 94 MCH 30 MCHC 32 RDW 15.9 H Plt Count 268 Lymph % (Auto) 11.8 L [place] % (Auto) 6.8 Eos % (Auto) 1.0 Baso % (Auto) 0.3 Lymph # 0.8 L [place] # 0.5 Eos # 0.1 Baso # 0.0 Seg Neutrophils % 80.1 H Seg Neutrophils # 5.5 Sodium 160 H 166 H* Potassium 4.2 Chloride 129.2 H Carbon Dioxide 28 Anion Gap 15 BUN 57 H Creatinine 1.0 Estimated GFR > 60 BUN/Creatinine Ratio 57 Glucose 137 H Calcium 10.0 Total Bilirubin 0.60 AST 21 ALT 18 Alkaline Phosphatase 66 Total Protein 5.8 L Albumin 2.7 L Albumin/Globulin Ratio 0.9 Triglycerides Cholesterol LDL Cholesterol Direct HDL Cholesterol Cholesterol/HDL Ratio 09/04/18 09/04/18 09:11 13:35 WBC RBC Hgb 15.6 H Hct 48.1 H MCV MCH MCHC RDW Plt Count Lymph % (Auto) [place] % (Auto) Eos % (Auto) Baso % (Auto) Lymph # [place] # Eos # Baso # Seg Neutrophils % Seg Neutrophils # Sodium 166 H* Potassium Chloride Carbon Dioxide Anion Gap BUN Creatinine Estimated GFR BUN/Creatinine Ratio Glucose Calcium Total Bilirubin AST ALT Alkaline Phosphatase Total Protein Albumin Albumin/Globulin Ratio Triglycerides Cholesterol LDL Cholesterol Direct HDL Cholesterol Cholesterol/HDL Ratio Assessment and Plan Patient seen and examined. Agree with note above. H/h stable and no active bleeding. Presented with AMS. conservative management from gi stand point at present time. will need eventual colonoscopy (can be done as outpatient if no further bleeding).
--- NOTE | 2018-09-04 13:15 | Consultation ---
History of Present Illness - Reason for Consult Consult date: 09/04/18 hypernatremia Requesting physician: MADELIN BABCOCK - History of Present Illness This is a 68 yo CM, with past medical history of COPD, NORM, who presented to [facility] after BIBEMS, with confusion, lethargy and unable to provide history. As per brother, the patient has not returned phone calls over the past 4 days. As a result, the brother went to the home but the patient did not answer the door. Law Enforcement notified, and entry into the home was obtained. The patient was found down and covered in his own feces. Pt exhibited slurred speech, confusion. In ER CT head was obtained which showed no acute findings, subsequent MRI also showed normal result. Elevated D-dimer was noted, however CTA showed no evidence of PE. labs also showed significant hypernatremia with Na > 160 along with hypercalcemia, elevated BUN/Cr at 90/1.5mg/dl for which renal consult is requested. no previous renal disease reported Past History Past Medical History: COPD Past Surgical History: No surgical history, Other (reviewed) Social history: single, Lives alone, smoking. denies: alcohol abuse, prescription drug abuse, IV drug use Family history: no significant family history (reviewed) Medications and Allergies Allergies Allergy/AdvReac Type Severity Reaction Status Date / Time No Known Allergies Allergy Verified 09/02/18 13:48 Active Meds: Active Medications Acetaminophen (Tylenol) 650 mg PO Q4H PRN PRN Reason: Pain, Mild (1-3) Atorvastatin Calcium (Lipitor) 40 mg PO QHS ROXY Last Admin: 09/03/18 21:34 Dose: 40 mg Documented by: Bisacodyl (Dulcolax) 10 mg MD QDAY PRN PRN Reason: Constipation Dextrose (D5w) 1,000 mls @ 125 mls/hr IV DIRECT ROXY Lorazepam (Ativan) 4 mg IV Q1HR PRN PRN Reason: CIWA-Ar 16-25 Lorazepam (Ativan) 4 mg IV Q15MIN PRN PRN Reason: CIWA-Ar >25 Magnesium Hydroxide (Milk Of Magnesia) 30 ml PO Q4H PRN PRN Reason: Constipation Metoclopramide HCl (Reglan) 10 mg PO Q6H PRN PRN Reason: Nausea And Vomiting Ondansetron HCl (Zofran) 4 mg IV Q8H PRN PRN Reason: Nausea And Vomiting Pantoprazole Sodium (Protonix) 40 mg IV BID ROXY Promethazine HCl (Phenergan) 25 mg MD Q6H PRN PRN Reason: Nausea And Vomiting Sodium Chloride (Sodium Chloride Flush Syringe 10 Ml) 10 ml IV PRN PRN PRN Reason: LINE FLUSH Review of Systems ROS unobtainable: due to mental status Exam - Vital Signs Vital signs: Vital Signs Pulse Ox 97 09/02/18 12:08 - General Appearance General appearance: well-developed, appears stated age, other (confused, disoriented ) EENT: ATNC, PERRL, mucous membranes dry Neck: Present: neck supple Respiratory: Decreased Breath Sounds Heart: regular, S1S2 Gastrointestinal: Present: normoactive bowel sounds, obese Integumentary: no rash, other (no edema ) Neurologic: confused, disoriented Results - Lab Results 09/04/18 13:35 09/04/18 13:35 Most recent lab results Calcium 10.0 mg/dL (8.4-10.2) 09/04/18 05:20 Laboratory Tests 09/02/18 09/02/18 09/02/18 12:35 12:35 12:35 D-Dimer 4180.35 H Sodium Potassium Chloride Carbon Dioxide Anion Gap BUN Creatinine Estimated GFR BUN/Creatinine Ratio Glucose POC Glucose Lactic Acid Calcium Total Bilirubin Direct Bilirubin Indirect Bilirubin AST ALT Alkaline Phosphatase Ammonia Total Protein Albumin Albumin/Globulin Ratio Triglycerides Cholesterol LDL Cholesterol Direct HDL Cholesterol Cholesterol/HDL Ratio Lipase TSH Free T4 Urine Color Urine Turbidity Urine pH Ur Specific [place] Urine Protein Urine Glucose (UA) Urine Ketones Urine Blood Urine Nitrite Urine Bilirubin Urine Urobilinogen Ur Leukocyte Esterase Urine WBC (Auto) Urine RBC (Auto) U Epithel Cells (Auto) Urine Bacteria (Auto) Urine Mucus Salicylates < 0.3 L Urine Opiates Screen Urine Methadone Screen Acetaminophen < 5.0 L Ur Barbiturates Screen Ur Phencyclidine Scrn Ur Amphetamines Screen U Benzodiazepines Scrn Urine Cocaine Screen U Marijuana (THC) Screen Drugs of Abuse Note Plasma/Serum Alcohol 09/02/18 09/02/18 09/02/18 12:35 12:35 12:35 D-Dimer Sodium Potassium Chloride Carbon Dioxide Anion Gap BUN Creatinine Estimated GFR BUN/Creatinine Ratio Glucose POC Glucose 167 H Lactic Acid 3.20 H* Calcium Total Bilirubin Direct Bilirubin Indirect Bilirubin AST ALT Alkaline Phosphatase Ammonia Total Protein Albumin Albumin/Globulin Ratio Triglycerides Cholesterol LDL Cholesterol Direct HDL Cholesterol Cholesterol/HDL Ratio Lipase TSH Free T4 Urine Color Urine Turbidity Urine pH Ur Specific [place] Urine Protein Urine Glucose (UA) Urine Ketones Urine Blood Urine Nitrite Urine Bilirubin Urine Urobilinogen Ur Leukocyte Esterase Urine WBC (Auto) Urine RBC (Auto) U Epithel Cells (Auto) Urine Bacteria (Auto) Urine Mucus Salicylates Urine Opiates Screen Urine Methadone Screen Acetaminophen Ur Barbiturates Screen Ur Phencyclidine Scrn Ur Amphetamines Screen U Benzodiazepines Scrn Urine Cocaine Screen U Marijuana (THC) Screen Drugs of Abuse Note Plasma/Serum Alcohol < 0.01 09/02/18 09/02/18 09/02/18 13:36 13:59 14:06 D-Dimer Sodium 159 H Potassium 3.7 Chloride 114.7 H Carbon Dioxide 27 Anion Gap 21 BUN 90 H Creatinine 1.5 Estimated GFR 46 BUN/Creatinine Ratio 60 Glucose 172 H POC Glucose Lactic Acid Calcium 10.8 H Total Bilirubin 0.60 Direct Bilirubin 0.3 H Indirect Bilirubin 0.3 AST 24 ALT 22 Alkaline Phosphatase 73 Ammonia Total Protein Albumin Albumin/Globulin Ratio Triglycerides Cholesterol LDL Cholesterol Direct HDL Cholesterol Cholesterol/HDL Ratio Lipase 81 H TSH Free T4 Urine Color [place] Urine Turbidity Slightly-cloudy Urine pH 5.0 Ur Specific [place] 1.017 Urine Protein 30 mg/dl Urine Glucose (UA) Neg Urine Ketones Neg Urine Blood Mod Urine Nitrite Neg Urine Bilirubin Neg Urine Urobilinogen 4.0 Ur Leukocyte Esterase Neg Urine WBC (Auto) 3.0 Urine RBC (Auto) 56.0 U Epithel Cells (Auto) < 1.0 Urine Bacteria (Auto) 1+ Urine Mucus Few Salicylates Urine Opiates Screen Presumptive negative Urine Methadone Screen Presumptive negative Acetaminophen Ur Barbiturates Screen Presumptive negative Ur Phencyclidine Scrn Presumptive negative Ur Amphetamines Screen Presumptive negative U Benzodiazepines Scrn Presumptive negative Urine Cocaine Screen Presumptive negative U Marijuana (THC) Screen Presumptive negative Drugs of Abuse Note Disclamer Plasma/Serum Alcohol 09/02/18 09/03/18 09/03/18 16:45 11:26 11:26 D-Dimer Sodium Potassium Chloride Carbon Dioxide Anion Gap BUN Creatinine Estimated GFR BUN/Creatinine Ratio Glucose POC Glucose Lactic Acid Calcium Total Bilirubin Direct Bilirubin Indirect Bilirubin AST ALT Alkaline Phosphatase Ammonia 75.0 H Total Protein Albumin Albumin/Globulin Ratio 0.4 Triglycerides Cholesterol LDL Cholesterol Direct HDL Cholesterol Cholesterol/HDL Ratio Lipase TSH < 0.005 L Free T4 2.40 H Urine Color Urine Turbidity Urine pH Ur Specific [place] Urine Protein Urine Glucose (UA) Urine Ketones Urine Blood Urine Nitrite Urine Bilirubin Urine Urobilinogen Ur Leukocyte Esterase Urine WBC (Auto) Urine RBC (Auto) U Epithel Cells (Auto) Urine Bacteria (Auto) Urine Mucus Salicylates Urine Opiates Screen Urine Methadone Screen Acetaminophen Ur Barbiturates Screen Ur Phencyclidine Scrn Ur Amphetamines Screen U Benzodiazepines Scrn Urine Cocaine Screen U Marijuana (THC) Screen Drugs of Abuse Note Plasma/Serum Alcohol 09/03/18 09/04/18 09/04/18 Unknown 02:38 05:20 D-Dimer Sodium 160 H Potassium 4.2 Chloride 129.2 H Carbon Dioxide 28 Anion Gap 15 BUN 57 H Creatinine 1.0 Estimated GFR > 60 BUN/Creatinine Ratio 57 Glucose 137 H POC Glucose Lactic Acid Calcium Total Bilirubin Direct Bilirubin Indirect Bilirubin AST ALT Alkaline Phosphatase Ammonia Total Protein 5.8 L Albumin 2.7 L Albumin/Globulin Ratio 0.9 Triglycerides 150 H Cholesterol 116 LDL Cholesterol Direct 69 HDL Cholesterol 21 L Cholesterol/HDL Ratio 5.52 Lipase TSH Free T4 Urine Color Urine Turbidity Urine pH Ur Specific [place] Urine Protein Urine Glucose (UA) Urine Ketones Urine Blood Urine Nitrite Urine Bilirubin Urine Urobilinogen Ur Leukocyte Esterase Urine WBC (Auto) Urine RBC (Auto) U Epithel Cells (Auto) Urine Bacteria (Auto) Urine Mucus Salicylates Urine Opiates Screen Urine Methadone Screen Acetaminophen Ur Barbiturates Screen Ur Phencyclidine Scrn Ur Amphetamines Screen U Benzodiazepines Scrn Urine Cocaine Screen U Marijuana (THC) Screen Drugs of Abuse Note Plasma/Serum Alcohol Assessment and Plan - Patient Problems (1) Hypernatremia Current Visit: Yes Status: Acute Plan to address problem: due to severe dehydration, free water deficit > 8L. cont D5W at 125ml/hr. pt remains NPO due to altered mental status. Agree with NGT placement and additional free water flushes with 250cc q4h to target Na correction of 8- 10meq/day within 24hr. Will monitor BMP closely and adjust IVF (2) Acute renal failure Current Visit: Yes Status: Acute Plan to address problem: due to pre-renal azotemia. cont IVF w/ D5W and free water flushes via NGT, renal function improving (3) Altered mental status Current Visit: Yes Status: Acute Plan to address problem: metabolic encephalopathy, hypernatremia contributing. CT/MRI head unremarkable. drug screening negative. reassess mental status after correction of hypernatremia (4) Encephalopathy Current Visit: Yes Status: Acute Plan to address problem: as above. (5) Hypercalcemia Current Visit: Yes Status: Acute Plan to address problem: due to dehydration, resolved with IV hydration
[2018-09-04 14:13] LABS: Hematocrit 48.1 % (35.5-45.6); Hemoglobin 15.6 gm/dl (11.8-15.2)
[2018-09-04] MEDS: ATIVAN IV PRN ×2 (19:01→20:42)
[2018-09-04 21:28] LABS: Hematocrit 58.3 % (35.5-45.6); Hemoglobin 16.9 gm/dl (11.8-15.2)
[2018-09-04] MEDS: FREE WATER PO SCH (22:12)
[2018-09-04] MEDS: PROCTOSOL-HC PR SCH (22:12)
[2018-09-05] MEDS: FREE WATER PO SCH ×6 (01:51→21:45)
[2018-09-05] MEDS: D5W 1,000 ML IV SCH ×2 (01:51→21:52)
[2018-09-05] MEDS: PROTONIX IV SCH ×2 (10:47→21:32)
--- NOTE | 2018-09-05 10:55 | Progress Note ---
Assessment and Plan - Patient Problems (1) Hypernatremia Current Visit: Yes Status: Acute Plan to address problem: improving Na on D5W at 125ml/hr along with free water flushes with 250cc q4h. Will target Na correction of 8-10meq/24hr. Will monitor BMP closely and adjust IVF (2) Acute renal failure Current Visit: Yes Status: Acute Plan to address problem: due to pre-renal azotemia. cont IVF w/ D5W and free water flushes via NGT, renal function improving (3) Altered mental status Current Visit: Yes Status: Acute Plan to address problem: metabolic encephalopathy, hypernatremia contributing. CT/MRI head unremarkable. drug screening negative. reassess mental status after correction of hypernatremia (4) Encephalopathy Current Visit: Yes Status: Acute Plan to address problem: as above. (5) Hypercalcemia Current Visit: Yes Status: Acute Plan to address problem: due to dehydration, resolved with IV hydration Subjective Date of service: 09/05/18 Principal diagnosis: hypernatremia Interval history: Pt remains confused, disoriented. s/p NGT, receiving free water flushes Objective - Vital Signs Vital signs: Vital Signs - 12hr 09/04/18 09/05/18 09/05/18 23:41 04:00 04:04 Temperature 98.5 F Pulse Rate 98 H 87 Respiratory 21 Rate Blood Pressure 114/72 O2 Sat by Pulse 93 94 Oximetry 09/05/18 09/05/18 09/05/18 04:54 08:09 10:25 Temperature 98.5 F Pulse Rate 95 H 95 H Respiratory 22 Rate Blood Pressure 120/78 131/91 O2 Sat by Pulse 89 93 94 Oximetry - General Appearance General appearance: well-developed, appears stated age EENT: ATNC, PERRL, mucous membranes dry Neck: no JVD Respiratory: Present: Clear to Ascultation Cardiology: regular, S1S2 Gastrointestinal: normoactive bowel sounds Integumentary: no rash, other (no edema ) Neurologic: confused, disoriented - Lab 09/04/18 21:04 09/05/18 07:45 Most recent lab results Calcium 10.0 mg/dL (8.4-10.2) 09/04/18 05:20 Medications & Allergies - Medications Allergies/Adverse Reactions: Allergies No Known Allergies Allergy (Verified 09/02/18 13:48) Active Medications: Generic Name Dose Route Start Last Admin Trade Name Freq PRN Reason Stop Dose Admin Acetaminophen 650 mg 09/02/18 15:03 Tylenol PO Q4H PRN Pain, Mild (1-3) Atorvastatin Calcium 40 mg 09/02/18 22:00 09/04/18 22:10 Lipitor PO 40 mg QHS ROXY Administration Bisacodyl 10 mg 09/02/18 15:03 Dulcolax AK QDAY PRN Constipation Hydrocortisone Acetate 1 applic 09/04/18 16:00 09/04/18 22:12 Proctosol-Hc AK 1 applic Q8HR ROXY Administration Dextrose 1,000 mls @ 125 mls/hr 09/04/18 12:00 09/05/18 01:51 D5w IV 125 mls/hr DIRECT ROXY Administration Lorazepam 4 mg 09/03/18 10:56 09/04/18 19:01 Ativan IV 2 mg Q1HR PRN Administration CIWA-Ar 16-25 Lorazepam 4 mg 09/03/18 10:56 09/04/18 20:42 Ativan IV 4 mg Q15MIN PRN Administration CIWA-Ar >25 Magnesium Hydroxide 30 ml 09/02/18 15:03 Milk Of Magnesia PO Q4H PRN Constipation Metoclopramide HCl 10 mg 09/02/18 15:03 Reglan PO Q6H PRN Nausea And Vomiting Ondansetron HCl 4 mg 09/02/18 15:03 Zofran IV Q8H PRN Nausea And Vomiting Pantoprazole Sodium 40 mg 09/04/18 10:00 09/04/18 22:10 Protonix IV 40 mg BID ROXY Administration Promethazine HCl 25 mg 09/02/18 15:03 Phenergan AK Q6H PRN Nausea And Vomiting Sodium Chloride 10 ml 09/02/18 15:03 Sodium Chloride Flush Syringe 10 Ml IV PRN PRN LINE FLUSH
--- NOTE | 2018-09-05 12:08 | Gastroenterology Progress Note ---
<HAROON CHURCH - Last Filed: 09/05/18 13:27> Assessment and Plan 1.rectal bleeding -H/H WNL -continue to monitor H/H and transfuse as needed -no active signs of bleeding overnight or this am -etiology-likely 2/2 hemorrhoids -recommend conservative management at this time with no plans for colonoscopy unless overt bleeding develops -continue topical steroids for hemorrhoids- consider colorectal surgery consult if symptoms persist -okay for anticoagulants if needed -continue PPI and supportive care -okay for feedings/diet -recommend patient f/u in clinic upon d/c for eventual outpatient colonoscopy -no further GI recommendations at this time -will sign off, please call back if needed Subjective Date of service: 09/05/18 Principal diagnosis: rectal bleeding Interval history: Patient remains confused and disoriented. Currently in restraints. Objective - Constitutional Vitals: Temp Pulse Resp BP Pulse Ox 98.5 F 95 H 22 131/91 94 09/05/18 04:54 09/05/18 08:09 09/05/18 04:54 09/05/18 08:09 09/05/18 10:25 General appearance: other (confused, disoriented) - Respiratory Respiratory: bilateral: CTA (anterior) - Cardiovascular Rhythm: regular Heart Sounds: Present: S1 & S2 - Gastrointestinal General gastrointestinal: Present: soft, non-distended, normal bowel sounds, other (+NGT) - Labs CBC & Chem 7: 09/04/18 21:04 09/05/18 07:45 Labs: Laboratory Results - last 24 hr 09/04/18 09/04/18 09/04/18 13:35 13:35 21:04 Hgb 15.6 H 16.9 H Hct 48.1 H 58.3 H D POC ABG pH POC ABG pCO2 POC ABG pO2 POC ABG HCO3 POC ABG Total CO2 POC ABG O2 Sat POC ABG Base Excess FiO2 Sodium 164 H* POC Glucose Ammonia 09/04/18 09/05/18 09/05/18 21:04 01:11 02:51 Hgb Hct POC ABG pH POC ABG pCO2 POC ABG pO2 POC ABG HCO3 POC ABG Total CO2 POC ABG O2 Sat POC ABG Base Excess FiO2 Sodium 159 H 152 H POC Glucose 116 H Ammonia 09/05/18 09/05/18 09/05/18 03:17 07:45 10:34 Hgb Hct POC ABG pH 7.340 L POC ABG pCO2 57.8 H POC ABG pO2 74 L POC ABG HCO3 31.1 POC ABG Total CO2 33 POC ABG O2 Sat 93 POC ABG Base Excess 5 FiO2 28 Sodium 156 H POC Glucose Ammonia 61.0 H <DARLINGFARHAD [place] - Last Filed: 09/05/18 14:52> Assessment and Plan Pt seen and examined. agree with note above. remains confused, no signs of overt bleeding. will sign off, please call when mental status improves for possible colonoscopy or if changes in clinical course. Objective - Constitutional Vitals: Temp Pulse Resp BP Pulse Ox 98.5 F 91 H 22 128/75 88 09/05/18 04:54 09/05/18 12:59 09/05/18 04:54 09/05/18 12:59 09/05/18 12:59 - Labs CBC & Chem 7: 09/04/18 21:04 09/05/18 07:45 Labs: Laboratory Results - last 24 hr 09/04/18 09/04/18 09/05/18 21:04 21:04 01:11 Hgb 16.9 H Hct 58.3 H D POC ABG pH POC ABG pCO2 POC ABG pO2 POC ABG HCO3 POC ABG Total CO2 POC ABG O2 Sat POC ABG Base Excess FiO2 Sodium 159 H 152 H POC Glucose Ammonia 09/05/18 09/05/18 09/05/18 02:51 03:17 07:45 Hgb Hct POC ABG pH 7.340 L POC ABG pCO2 57.8 H POC ABG pO2 74 L POC ABG HCO3 31.1 POC ABG Total CO2 33 POC ABG O2 Sat 93 POC ABG Base Excess 5 FiO2 28 Sodium 156 H POC Glucose 116 H Ammonia 09/05/18 10:34 Hgb Hct POC ABG pH POC ABG pCO2 POC ABG pO2 POC ABG HCO3 POC ABG Total CO2 POC ABG O2 Sat POC ABG Base Excess FiO2 Sodium POC Glucose Ammonia 61.0 H
[2018-09-05] MEDS: ATIVAN IV PRN ×4 (13:55→21:33)
--- NOTE | 2018-09-05 14:21 | Progress Note ---
Assessment and Plan Assessment and plan: 68 YO Male with Obesity Hypoventilation, COPD presents to ED for evaluation. Pt is confused, lethargic and unable to provide history. Pt history provided by his brother who is at bedside during exam and interview. As per brother, the patient has not returned phone calls over the past 4 days. As a result, the brother went to the home but the patient did not answer the door. Law Enforcement notified, and entry into the home was obtained. The patient was found down and covered in his own feces. Pt exhibited slurred speech, confusion. EMS notified and upon arrival, the patient was found to have a neurologic deficit. A code stroke was called, and the patient was transported to [facility]. Pt seen and evaluated in ED and found to have evidence of CVA as well as SIRS, Acidosis, and Encephalopathy. Pt admitted to telemetry and initiated on CVA protocol. Acute Metabolic encephalopathy Hypernatremia Rectal Bleed. Aspiration Pneumonia Obesity Hypoventilation syndrome ETOH use disorder hYPOTHYRODISIM Moderate Protien calorie Malnutrition Secondary Coagulopathy ?UNDERLYING LIVER DISEASE VS IATROGENIC MEDICATION Sepsis Plan Continue supportive care, clinically has not been requiring ativan. Continue D5W and obtain serial Na level Continue FREE WATER AT 250CC Q4HR Nephrology consult to assist Lactulose Discontinue ASA. NO CVA and now with rectal bleed. Await GI input. Start CIWA protocol Seizure precautions Obtain HOME MEDS LIST-PENDING Continue Empiric abx Aspiration precautions DVT/GI prophy Call placed to family to obtain more clinical information Still awaiting home meds Discussed with Nursing staff and also GI team History Interval history: Patient seen and examined, remains confused. no other complaints. Family at bedside with no new information except that the patient is normally follwed at [facility] Physical - Physical exam Narrative exam: General appearance: Present: mild distress, obese, disheveled - EENT Eyes: Present: PERRL, EOM intact ENT: poor dentition - Neck Neck: Present: supple, normal ROM - Respiratory Respiratory effort: normal Respiratory: bilateral: CTA - Cardiovascular Rhythm: regular Heart Sounds: Present: S1 & S2. Absent: systolic murmur - Extremities Extremities: no ischemia, pulses intact, pulses symmetrical, No edema, normal temperature, normal color, Full ROM Peripheral Pulses: within normal limits - Abdominal General gastrointestinal: soft, non-tender, non-distended - Integumentary Integumentary: Present: clear, warm- Hemorrhoids - Psychiatric Psychiatric: Confused - Neurologic Neurologic: CNII-XII intact, moves all extremities, confused - Allied Health Allied health notes reviewed: nursing - Constitutional Vitals: Temp Pulse Resp BP Pulse Ox 98.5 F 91 H 22 128/75 88 09/05/18 04:54 09/05/18 12:59 09/05/18 04:54 09/05/18 12:59 09/05/18 12:59 General appearance: Present: mild distress, obese, disheveled Results - Labs CBC & Chem 7: 09/06/18 05:10 09/06/18 05:10 Labs: Laboratory Last Values WBC 6.9 K/mm3 (4.5-11.0) 09/04/18 05:20 RBC 5.12 M/mm3 (3.65-5.03) H 09/04/18 05:20 Hgb 16.9 gm/dl (11.8-15.2) H 09/04/18 21:04 Hct 58.3 % (35.5-45.6) H D 09/04/18 21:04 MCV 94 fl (84-94) 09/04/18 05:20 MCH 30 pg (28-32) 09/04/18 05:20 MCHC 32 % (32-34) 09/04/18 05:20 RDW 15.9 % (13.2-15.2) H 09/04/18 05:20 Plt Count 268 K/mm3 (140-440) 09/04/18 05:20 Lymph % (Auto) 11.8 % (13.4-35.0) L 09/04/18 05:20 [place] % (Auto) 6.8 % (0.0-7.3) 09/04/18 05:20 Eos % (Auto) 1.0 % (0.0-4.3) 09/04/18 05:20 Baso % (Auto) 0.3 % (0.0-1.8) 09/04/18 05:20 Lymph # 0.8 K/mm3 (1.2-5.4) L 09/04/18 05:20 [place] # 0.5 K/mm3 (0.0-0.8) 09/04/18 05:20 Eos # 0.1 K/mm3 (0.0-0.4) 09/04/18 05:20 Baso # 0.0 K/mm3 (0.0-0.1) 09/04/18 05:20 Seg Neutrophils % 80.1 % (40.0-70.0) H 09/04/18 05:20 Seg Neutrophils # 5.5 K/mm3 (1.8-7.7) 09/04/18 05:20 PT 21.8 Sec. (12.2-14.9) H 09/03/18 11:26 INR 1.86 (0.87-1.13) H 09/03/18 11:26 APTT 32.5 Sec. (24.2-36.6) 09/02/18 12:35 D-Dimer 4180.35 ng/mlDDU (0-234) H 09/02/18 12:35 POC ABG pH 7.340 (7.35-7.45) L 09/05/18 03:17 POC ABG pCO2 57.8 (35-45) H 09/05/18 03:17 POC ABG pO2 74 (80-105) L 09/05/18 03:17 POC ABG HCO3 31.1 09/05/18 03:17 POC ABG Total CO2 33 09/05/18 03:17 POC ABG O2 Sat 93 09/05/18 03:17 POC ABG Base Excess 5 09/05/18 03:17 FiO2 28 % 09/05/18 03:17 Sodium 156 mmol/L (137-145) H 09/05/18 07:45 Potassium 4.2 mmol/L (3.6-5.0) 09/04/18 05:20 Chloride 129.2 mmol/L (98-107) H 09/04/18 05:20 Carbon Dioxide 28 mmol/L (22-30) 09/04/18 05:20 Anion Gap 15 mmol/L 09/04/18 05:20 BUN 57 mg/dL (9-20) H 09/04/18 05:20 Creatinine 1.0 mg/dL (0.8-1.5) 09/04/18 05:20 Estimated GFR > 60 ml/min 09/04/18 05:20 BUN/Creatinine Ratio 57 % 09/04/18 05:20 Glucose 137 mg/dL (75-100) H 09/04/18 05:20 POC Glucose 116 (70-105) H 09/05/18 02:51 Lactic Acid 1.30 mmol/L (0.7-2.0) 09/02/18 16:45 Calcium 10.0 mg/dL (8.4-10.2) 09/04/18 05:20 Total Bilirubin 0.60 mg/dL (0.1-1.2) 09/04/18 05:20 Direct Bilirubin < 0.2 mg/dL (0-0.2) 09/03/18 11:26 Indirect Bilirubin 0.3 mg/dL 09/02/18 13:36 AST 21 units/L (5-40) 09/04/18 05:20 ALT 18 units/L (7-56) 09/04/18 05:20 Alkaline Phosphatase 66 units/L (35-129) 09/04/18 05:20 Ammonia 61.0 umol/L (25-60) H 09/05/18 10:34 Total Creatine Kinase 98 units/L (55-170) 09/02/18 13:36 Troponin T 0.018 ng/mL (0.00-0.029) 09/02/18 13:36 NT-Pro-B Natriuret Pep 873.7 pg/mL (0-900) 09/02/18 13:36 Total Protein 5.8 g/dL (6.3-8.2) L 09/04/18 05:20 Albumin 2.7 g/dL (3.9-5) L 09/04/18 05:20 Albumin/Globulin Ratio 0.9 % 09/04/18 05:20 Triglycerides 150 mg/dL (2-149) H 09/03/18 Unknown Cholesterol 116 mg/dL (50-199) 09/03/18 Unknown LDL Cholesterol Direct 69 mg/dL (50-130) 09/03/18 Unknown HDL Cholesterol 21 mg/dL (40-59) L 09/03/18 Unknown Cholesterol/HDL Ratio 5.52 % 09/03/18 Unknown Lipase 81 units/L (13-60) H 09/02/18 13:36 TSH < 0.005 mlU/mL (0.270-4.200) L 09/02/18 16:45 Free T4 2.40 ng/dL (0.76-1.46) H 09/02/18 16:45 Urine Color [place] (Yellow) 09/02/18 14:06 Urine Turbidity Slightly-cloudy (Clear) 09/02/18 14:06 Urine pH 5.0 (5.0-7.0) 09/02/18 14:06 Ur Specific [place] 1.017 (1.003-1.030) 09/02/18 14:06 Urine Protein 30 mg/dl mg/dL (Negative) 09/02/18 14:06 Urine Glucose (UA) Neg mg/dL (Negative) 09/02/18 14:06 Urine Ketones Neg mg/dL (Negative) 09/02/18 14:06 Urine Blood Mod (Negative) 09/02/18 14:06 Urine Nitrite Neg (Negative) 09/02/18 14:06 Urine Bilirubin Neg (Negative) 09/02/18 14:06 Urine Urobilinogen 4.0 mg/dL (<2.0) 09/02/18 14:06 Ur Leukocyte Esterase Neg (Negative) 09/02/18 14:06 Urine WBC (Auto) 3.0 /HPF (0.0-6.0) 09/02/18 14:06 Urine RBC (Auto) 56.0 /HPF (0.0-6.0) 09/02/18 14:06 U Epithel Cells (Auto) < 1.0 /HPF (0-13.0) 09/02/18 14:06 Urine Bacteria (Auto) 1+ /HPF (Negative) 09/02/18 14:06 Urine Mucus Few /HPF 09/02/18 14:06 Salicylates < 0.3 mg/dL (2.8-20.0) L 09/02/18 12:35 Urine Opiates Screen Presumptive negative 09/02/18 13:59 Urine Methadone Screen Presumptive negative 09/02/18 13:59 Acetaminophen < 5.0 ug/mL (10.0-30.0) L 09/02/18 12:35 Ur Barbiturates Screen Presumptive negative 09/02/18 13:59 Ur Phencyclidine Scrn Presumptive negative 09/02/18 13:59 Ur Amphetamines Screen Presumptive negative 09/02/18 13:59 U Benzodiazepines Scrn Presumptive negative 09/02/18 13:59 Urine Cocaine Screen Presumptive negative 09/02/18 13:59 U Marijuana (THC) Screen Presumptive negative 09/02/18 13:59 Drugs of Abuse Note Disclamer 09/02/18 13:59 Plasma/Serum Alcohol < 0.01 % (0-0.07) 09/02/18 12:35
[2018-09-05] MEDS: PROCTOSOL-HC PR SCH ×3 (14:44→22:16)
--- NOTE | 2018-09-05 20:23 | XRay Report ---
FINAL REPORT EXAM: XR ABDOMEN 1V AP HISTORY: ng placement TECHNIQUE: Supine AP view of the abdomen centered at the lower chest/upper abdomen. PRIORS: None. FINDINGS: There is an NG tube in place with the tip in the stomach. The visualized lung callahan are clear. The b owel gas pattern appears normal. The bones are unremarkable. IMPRESSION: NG tube tip in stomach
[2018-09-05] MEDS: CEPHULAC PO SCH ×2 (20:30→22:16)
[2018-09-06] MEDS: FREE WATER PO SCH ×6 (01:00→21:00)
[2018-09-06] MEDS: CEPHULAC PO SCH ×4 (02:42→19:03)
[2018-09-06] MEDS ORDERED: ATIVAN IV PRN (05:18)
[2018-09-06] MEDS: D5W 1,000 ML IV SCH (05:31)
[2018-09-06 06:07] LABS: Hematocrit 47.8 % (35.5-45.6); Hemoglobin 15.2 gm/dl (11.8-15.2); Mean Corpuscular HGB Conc 32 % (32-34); Mean Corpuscular Volume 94 fl (84-94); Platelet Count 211 K/mm3 (140-440); Red Blood Count 5.06 M/mm3 (3.65-5.03); Red Cell Distribution Width 15.3 % (13.2-15.2)
[2018-09-06] MEDS: PROCTOSOL-HC PR SCH ×2 (06:21→16:21)
[2018-09-06 06:26] LABS: BUN/Creatinine Ratio 40; Blood Urea Nitrogen 36 mg/dL (9-20); Calcium 9.5 mg/dL (8.4-10.2); Hemolysis Index 8
[2018-09-06] MEDS ORDERED: LASIX IV ONE (08:23)
--- NOTE | 2018-09-06 08:35 | Progress Note ---
Assessment and Plan Assessment and plan: 68 YO Male with Obesity Hypoventilation, COPD presents to ED for evaluation. Pt is confused, lethargic and unable to provide history. Pt history provided by his brother who is at bedside during exam and interview. As per brother, the patient has not returned phone calls over the past 4 days. As a result, the brother went to the home but the patient did not answer the door. Law Enforcement notified, and entry into the home was obtained. The patient was found down and covered in his own feces. Pt exhibited slurred speech, confusion. EMS notified and upon arrival, the patient was found to have a neurologic deficit. A code stroke was called, and the patient was transported to [facility]. Pt seen and evaluated in ED and found to have evidence of CVA as well as SIRS, Acidosis, and Encephalopathy. Pt admitted to telemetry and initiated on CVA protocol. Acute Metabolic encephalopathy Hypernatremia Rectal Bleed. Aspiration Pneumonia Obesity Hypoventilation syndrome ETOH use disorder hYPOTHYRODISIM Moderate Protien calorie Malnutrition Secondary Coagulopathy ?UNDERLYING LIVER DISEASE VS IATROGENIC MEDICATION Sepsis Plan Continue supportive care, Recieved 2 doses of ativan last night and is snowed this morning Give Lasix 40mg IV x 1 Obtain Chest xray to evaluate for fluids Discontinue D5W and obtain wheel loader operator consult for Tube feeds Change free water to 125CC Q4HR- patient went through a period yesterday without it due to NGT disconnect Can Transfer to [facility] unit Continue lactulose for another 4 doses- missed most of it yesterday Nephrology consult to assist Discontinue ASA. NO CVA and now with rectal bleed. Seizure precautions Continue Empiric abx Aspiration precautions DVT/GI prophy Call placed to family to obtain more clinical information Still awaiting home meds Requested records from [place] still pending. Discussed with Nursing staff and also GI team History Interval history: Patient seen and examined, remains confused. increased work of breathing noted today with audible ronchi, improved with adjustment of head of the bed Hospitalist Physical - Physical exam Narrative exam: General appearance: Present: mild distress, obese, remains in restraints - EENT Eyes: Present: PERRL, EOM intact ENT: poor dentition - Neck Neck: Present: supple, normal ROM - Respiratory Respiratory effort: labored, improved Respiratory: bilateral: Ronchi - Cardiovascular Rhythm: regular Heart Sounds: Present: S1 & S2. Absent: systolic murmur - Extremities Extremities: no ischemia, pulses intact, pulses symmetrical, No edema, normal temperature, normal color, Full ROM Peripheral Pulses: within normal limits - Abdominal General gastrointestinal: soft, non-tender, non-distended - Integumentary Integumentary: Present: clear, warm- Hemorrhoids - Psychiatric Psychiatric: Confused - Neurologic Neurologic: CNII-XII intact, moves all extremities, confused - Allied Health Allied health notes reviewed: nursing - Constitutional Vitals: Temp Pulse Resp BP Pulse Ox 100.9 F H 116 H 20 111/79 88 09/06/18 08:17 09/06/18 08:17 09/06/18 08:17 09/06/18 08:17 09/06/18 08:17 General appearance: Present: mild distress, obese, disheveled Results - Labs CBC & Chem 7: 09/06/18 05:10 09/06/18 05:10 Labs: Laboratory Last Values WBC 7.1 K/mm3 (4.5-11.0) 09/06/18 05:10 RBC 5.06 M/mm3 (3.65-5.03) H 09/06/18 05:10 Hgb 15.2 gm/dl (11.8-15.2) 09/06/18 05:10 Hct 47.8 % (35.5-45.6) H D 09/06/18 05:10 MCV 94 fl (84-94) 09/06/18 05:10 MCH 30 pg (28-32) 09/06/18 05:10 MCHC 32 % (32-34) 09/06/18 05:10 RDW 15.3 % (13.2-15.2) H 09/06/18 05:10 Plt Count 211 K/mm3 (140-440) 09/06/18 05:10 Lymph % (Auto) 11.8 % (13.4-35.0) L 09/04/18 05:20 [place] % (Auto) 6.8 % (0.0-7.3) 09/04/18 05:20 Eos % (Auto) 1.0 % (0.0-4.3) 09/04/18 05:20 Baso % (Auto) 0.3 % (0.0-1.8) 09/04/18 05:20 Lymph # 0.8 K/mm3 (1.2-5.4) L 09/04/18 05:20 [place] # 0.5 K/mm3 (0.0-0.8) 09/04/18 05:20 Eos # 0.1 K/mm3 (0.0-0.4) 09/04/18 05:20 Baso # 0.0 K/mm3 (0.0-0.1) 09/04/18 05:20 Seg Neutrophils % 80.1 % (40.0-70.0) H 09/04/18 05:20 Seg Neutrophils # 5.5 K/mm3 (1.8-7.7) 09/04/18 05:20 PT 21.8 Sec. (12.2-14.9) H 09/03/18 11:26 INR 1.86 (0.87-1.13) H 09/03/18 11:26 APTT 32.5 Sec. (24.2-36.6) 09/02/18 12:35 D-Dimer 4180.35 ng/mlDDU (0-234) H 09/02/18 12:35 POC ABG pH 7.340 (7.35-7.45) L 09/05/18 03:17 POC ABG pCO2 57.8 (35-45) H 09/05/18 03:17 POC ABG pO2 74 (80-105) L 09/05/18 03:17 POC ABG HCO3 31.1 09/05/18 03:17 POC ABG Total CO2 33 09/05/18 03:17 POC ABG O2 Sat 93 09/05/18 03:17 POC ABG Base Excess 5 09/05/18 03:17 FiO2 28 % 09/05/18 03:17 Sodium 155 mmol/L (137-145) H 09/06/18 05:10 Potassium 4.3 mmol/L (3.6-5.0) 09/06/18 05:10 Chloride 117.0 mmol/L (98-107) H 09/06/18 05:10 Carbon Dioxide 27 mmol/L (22-30) 09/06/18 05:10 Anion Gap 15 mmol/L 09/06/18 05:10 BUN 36 mg/dL (9-20) H 09/06/18 05:10 Creatinine 0.9 mg/dL (0.8-1.5) 09/06/18 05:10 Estimated GFR > 60 ml/min 09/06/18 05:10 BUN/Creatinine Ratio 40 % 09/06/18 05:10 Glucose 143 mg/dL (75-100) H 09/06/18 05:10 POC Glucose 116 (70-105) H 09/05/18 02:51 Lactic Acid 1.30 mmol/L (0.7-2.0) 09/02/18 16:45 Calcium 9.5 mg/dL (8.4-10.2) 09/06/18 05:10 Total Bilirubin 0.60 mg/dL (0.1-1.2) 09/04/18 05:20 Direct Bilirubin < 0.2 mg/dL (0-0.2) 09/03/18 11:26 Indirect Bilirubin 0.3 mg/dL 09/02/18 13:36 AST 21 units/L (5-40) 09/04/18 05:20 ALT 18 units/L (7-56) 09/04/18 05:20 Alkaline Phosphatase 66 units/L (35-129) 09/04/18 05:20 Ammonia 58.0 umol/L (25-60) 09/06/18 05:10 Total Creatine Kinase 98 units/L (55-170) 09/02/18 13:36 Troponin T 0.018 ng/mL (0.00-0.029) 09/02/18 13:36 NT-Pro-B Natriuret Pep 873.7 pg/mL (0-900) 09/02/18 13:36 Total Protein 5.8 g/dL (6.3-8.2) L 09/04/18 05:20 Albumin 2.7 g/dL (3.9-5) L 09/04/18 05:20 Albumin/Globulin Ratio 0.9 % 09/04/18 05:20 Triglycerides 150 mg/dL (2-149) H 09/03/18 Unknown Cholesterol 116 mg/dL (50-199) 09/03/18 Unknown LDL Cholesterol Direct 69 mg/dL (50-130) 09/03/18 Unknown HDL Cholesterol 21 mg/dL (40-59) L 09/03/18 Unknown Cholesterol/HDL Ratio 5.52 % 09/03/18 Unknown Lipase 81 units/L (13-60) H 09/02/18 13:36 TSH < 0.005 mlU/mL (0.270-4.200) L 09/02/18 16:45 Free T4 2.40 ng/dL (0.76-1.46) H 09/02/18 16:45 Urine Color [place] (Yellow) 09/02/18 14:06 Urine Turbidity Slightly-cloudy (Clear) 09/02/18 14:06 Urine pH 5.0 (5.0-7.0) 09/02/18 14:06 Ur Specific [place] 1.017 (1.003-1.030) 09/02/18 14:06 Urine Protein 30 mg/dl mg/dL (Negative) 09/02/18 14:06 Urine Glucose (UA) Neg mg/dL (Negative) 09/02/18 14:06 Urine Ketones Neg mg/dL (Negative) 09/02/18 14:06 Urine Blood Mod (Negative) 09/02/18 14:06 Urine Nitrite Neg (Negative) 09/02/18 14:06 Urine Bilirubin Neg (Negative) 09/02/18 14:06 Urine Urobilinogen 4.0 mg/dL (<2.0) 09/02/18 14:06 Ur Leukocyte Esterase Neg (Negative) 09/02/18 14:06 Urine WBC (Auto) 3.0 /HPF (0.0-6.0) 09/02/18 14:06 Urine RBC (Auto) 56.0 /HPF (0.0-6.0) 09/02/18 14:06 U Epithel Cells (Auto) < 1.0 /HPF (0-13.0) 09/02/18 14:06 Urine Bacteria (Auto) 1+ /HPF (Negative) 09/02/18 14:06 Urine Mucus Few /HPF 09/02/18 14:06 Salicylates < 0.3 mg/dL (2.8-20.0) L 09/02/18 12:35 Urine Opiates Screen Presumptive negative 09/02/18 13:59 Urine Methadone Screen Presumptive negative 09/02/18 13:59 Acetaminophen < 5.0 ug/mL (10.0-30.0) L 09/02/18 12:35 Ur Barbiturates Screen Presumptive negative 09/02/18 13:59 Ur Phencyclidine Scrn Presumptive negative 09/02/18 13:59 Ur Amphetamines Screen Presumptive negative 09/02/18 13:59 U Benzodiazepines Scrn Presumptive negative 09/02/18 13:59 Urine Cocaine Screen Presumptive negative 09/02/18 13:59 U Marijuana (THC) Screen Presumptive negative 09/02/18 13:59 Drugs of Abuse Note Disclamer 09/02/18 13:59 Plasma/Serum Alcohol < 0.01 % (0-0.07) 09/02/18 12:35 - Imaging and Cardiology Chest x-ray: pending
[2018-09-06] MEDS: PROTONIX IV SCH (10:06)
[2018-09-06] MEDS: ROCEPHIN/NS 1 GM/50 ML 1 GM/50 ML BAG IV SCH (10:10)
--- NOTE | 2018-09-06 11:20 | XRay Report ---
FINAL REPORT EXAM: XR CHEST 1V AP HISTORY: pleural effuison TECHNIQUE: Frontal chest radiograph. PRIORS: None. FINDINGS: The cardiomediastinal silhouette is normal. Mild patchy bilateral lower lobe opacities are seen, right worse than left. No pleural effusion. No pneumothorax. No acute osseous abnormality. IMPRESSION: Bibasilar atelectasis versus pneumonia. No pleural effusion identified.
--- NOTE | 2018-09-06 13:59 | Event Note ---
Date: 09/06/18 [place] respiratory failure Increase work of breathing not improving with lasix Likely aspiration during self dislodgment of NGT Will obtain Pulmonary consult for intubation as patient unable to protect airway, still confuse and transfer to ICU The high probability of a clinically significant, sudden or life threatening deterioration of the [pulmonary] system(s) required my full and direct attention, intervention and personal management. The aggregate critical care time was [35] minutes. This time is in addition to time spent performing r eported procedures but includes the following: [x] Data Review and interpretation [x] Patient assessment and monitoring of vital signs [x] Documentation [x] Medication orders and management
--- NOTE | 2018-09-06 14:01 | XRay Report ---
FINAL REPORT EXAM: XR ABDOMEN 1V AP HISTORY: dobhobb placement verfication TECHNIQUE: AP abdominal radiograph. PRIORS: 09/05/2018. FINDINGS: The enteric tube tip projects in the distal esophagus. No bowel obstruction. No organomegaly or masses. No abnormal calcifications. No acute osseous abnormality. Bibasilar atelectasis is seen. IMPRESSION: Enteric tube tip projecting in the distal esophagus. Recommend advancement.
[2018-09-06] MEDS ORDERED: DIPRIVAN 10 MG/ML IV ONE (14:03)
--- NOTE | 2018-09-06 14:13 | Consultation ---
History of Present Illness Consult date: 09/06/18 Requesting physician: MADELIN BABCOCK Reason for consult: other (Acute Encephalopathy; Acute Hypoxemic Respiratory Failure) History of present illness: PULMONARY/CCM CONSULT NOTE (Full dictation # [id number]) Please see dictated notes for full details Past History Past Medical History: COPD Past Surgical History: No surgical history, Other (reviewed) Social history: single, Lives alone, smoking. denies: alcohol abuse, prescription drug abuse, IV drug use Family history: no significant family history (reviewed) Medications and Allergies Allergies Allergy/AdvReac Type Severity Reaction Status Date / Time No Known Allergies Allergy Verified 09/02/18 13:48 Active Meds: Active Medications Acetaminophen (Tylenol) 650 mg PO Q4H PRN PRN Reason: Pain, Mild (1-3) Atorvastatin Calcium (Lipitor) 40 mg PO QHS ROXY Last Admin: 09/05/18 21:33 Dose: 40 mg Documented by: Bisacodyl (Dulcolax) 10 mg RI QDAY PRN PRN Reason: Constipation Hydrocortisone Acetate (Proctosol-Hc) 1 applic RI Q8HR [facility] Last Admin: 09/06/18 06:21 Dose: 1 applic Documented by: Ceftriaxone Sodium (Rocephin/Ns 1 Gm/50 Ml) 1 gm in 50 mls @ 100 mls/hr IV Q24HR ROXY; Protocol Lactulose (Cephulac) 20 gm PO Q6HR ROXY Magnesium Hydroxide (Milk Of Magnesia) 30 ml PO Q4H PRN PRN Reason: Constipation Metoclopramide HCl (Reglan) 10 mg PO Q6H PRN PRN Reason: Nausea And Vomiting Ondansetron HCl (Zofran) 4 mg IV Q8H PRN PRN Reason: Nausea And Vomiting Pantoprazole Sodium (Protonix) 40 mg IV QDAY ROXY Last Admin: 09/06/18 10:06 Dose: 40 mg Documented by: Promethazine HCl (Phenergan) 25 mg RI Q6H PRN PRN Reason: Nausea And Vomiting Sodium Chloride (Sodium Chloride Flush Syringe 10 Ml) 10 ml IV PRN PRN PRN Reason: LINE FLUSH Physical Examination Vital signs: Vital Signs Pulse Ox 97 09/02/18 12:08 Results - Laboratory Findings CBC and BMP: 09/06/18 05:10 09/06/18 15:11 ABG POC ABG pH 7.340 (7.35-7.45) L 09/05/18 03:17 POC ABG pCO2 57.8 (35-45) H 09/05/18 03:17 POC ABG pO2 74 (80-105) L 09/05/18 03:17 POC ABG HCO3 31.1 09/05/18 03:17 POC ABG Total CO2 33 09/05/18 03:17 POC ABG O2 Sat 93 09/05/18 03:17 PT/INR, D-dimer PT 21.8 Sec. (12.2-14.9) H 09/03/18 11:26 INR 1.86 (0.87-1.13) H 09/03/18 11:26 D-Dimer 4180.35 ng/mlDDU (0-234) H 09/02/18 12:35 Abnormal lab findings: Abnormal Labs 09/02/18 09/02/18 09/02/18 12:35 12:35 12:35 RBC 6.15 H Hgb 18.7 H Hct 57.7 H RDW 15.5 H Lymph % (Auto) 8.8 L Lymph # 0.9 L Seg Neutrophils % 83.2 H Seg Neutrophils # 8.9 H PT 20.8 H INR 1.74 H D-Dimer 4180.35 H POC ABG pH POC ABG pCO2 POC ABG pO2 Sodium Chloride BUN Glucose POC Glucose Lactic Acid Calcium Direct Bilirubin Ammonia Total Protein Albumin Triglycerides HDL Cholesterol Lipase TSH Free T4 Salicylates < 0.3 L Acetaminophen 09/02/18 09/02/18 09/02/18 12:35 12:35 12:35 RBC Hgb Hct RDW Lymph % (Auto) Lymph # Seg Neutrophils % Seg Neutrophils # PT INR D-Dimer POC ABG pH POC ABG pCO2 POC ABG pO2 Sodium Chloride BUN Glucose POC Glucose 167 H Lactic Acid 3.20 H* Calcium Direct Bilirubin Ammonia Total Protein Albumin Triglycerides HDL Cholesterol Lipase TSH Free T4 Salicylates Acetaminophen < 5.0 L 09/02/18 09/02/18 09/02/18 13:36 14:40 16:45 RBC Hgb Hct RDW Lymph % (Auto) Lymph # Seg Neutrophils % Seg Neutrophils # PT INR D-Dimer POC ABG pH POC ABG pCO2 POC ABG pO2 Sodium 159 H Chloride 114.7 H BUN 90 H Glucose 172 H POC Glucose Lactic Acid 2.30 H* Calcium 10.8 H Direct Bilirubin 0.3 H Ammonia Total Protein Albumin 2.6 L Triglycerides HDL Cholesterol Lipase 81 H TSH < 0.005 L Free T4 2.40 H Salicylates Acetaminophen 09/03/18 09/03/18 09/03/18 11:26 11:26 11:26 RBC Hgb Hct RDW Lymph % (Auto) Lymph # Seg Neutrophils % Seg Neutrophils # PT 21.8 H INR 1.86 H D-Dimer POC ABG pH POC ABG pCO2 POC ABG pO2 Sodium 160 H Chloride 122.6 H BUN 69 H Glucose 127 H POC Glucose Lactic Acid Calcium Direct Bilirubin Ammonia Total Protein Albumin 2.1 L Triglycerides HDL Cholesterol Lipase TSH Free T4 Salicylates Acetaminophen 09/03/18 09/03/18 09/03/18 11:26 15:39 20:23 RBC Hgb Hct RDW Lymph % (Auto) Lymph # Seg Neutrophils % Seg Neutrophils # PT INR D-Dimer POC ABG pH POC ABG pCO2 POC ABG pO2 Sodium 160 H 160 H Chloride BUN Glucose POC Glucose Lactic Acid Calcium Direct Bilirubin Ammonia 75.0 H Total Protein Albumin Triglycerides HDL Cholesterol Lipase TSH Free T4 Salicylates Acetaminophen 09/03/18 09/04/18 09/04/18 Unknown 02:38 05:20 RBC Hgb Hct RDW Lymph % (Auto) Lymph # Seg Neutrophils % Seg Neutrophils # PT INR D-Dimer POC ABG pH POC ABG pCO2 POC ABG pO2 Sodium 160 H 166 H* Chloride 129.2 H BUN 57 H Glucose 137 H POC Glucose Lactic Acid Calcium Direct Bilirubin Ammonia Total Protein 5.8 L Albumin 2.7 L Triglycerides 150 H HDL Cholesterol 21 L Lipase TSH Free T4 Salicylates Acetaminophen 09/04/18 09/04/18 09/04/18 05:20 09:11 13:35 RBC 5.12 H Hgb 15.5 H D 15.6 H Hct 48.0 H D 48.1 H RDW 15.9 H Lymph % (Auto) 11.8 L Lymph # 0.8 L Seg Neutrophils % 80.1 H Seg Neutrophils # PT INR D-Dimer POC ABG pH POC ABG pCO2 POC ABG pO2 Sodium 166 H* Chloride BUN Glucose POC Glucose Lactic Acid Calcium Direct Bilirubin Ammonia Total Protein Albumin Triglycerides HDL Cholesterol Lipase TSH Free T4 Salicylates Acetaminophen 09/04/18 09/04/18 09/04/18 13:35 21:04 21:04 RBC Hgb 16.9 H Hct 58.3 H D RDW Lymph % (Auto) Lymph # Seg Neutrophils % Seg Neutrophils # PT INR D-Dimer POC ABG pH POC ABG pCO2 POC ABG pO2 Sodium 164 H* 159 H Chloride BUN Glucose POC Glucose Lactic Acid Calcium Direct Bilirubin Ammonia Total Protein Albumin Triglycerides HDL Cholesterol Lipase TSH Free T4 Salicylates Acetaminophen 09/05/18 09/05/18 09/05/18 01:11 02:51 03:17 RBC Hgb Hct RDW Lymph % (Auto) Lymph # Seg Neutrophils % Seg Neutrophils # PT INR D-Dimer POC ABG pH 7.340 L POC ABG pCO2 57.8 H POC ABG pO2 74 L Sodium 152 H Chloride BUN Glucose POC Glucose 116 H Lactic Acid Calcium Direct Bilirubin Ammonia Total Protein Albumin Triglycerides HDL Cholesterol Lipase TSH Free T4 Salicylates Acetaminophen 09/05/18 09/05/18 09/05/18 07:45 10:34 15:21 RBC Hgb Hct RDW Lymph % (Auto) Lymph # Seg Neutrophils % Seg Neutrophils # PT INR D-Dimer POC ABG pH POC ABG pCO2 POC ABG pO2 Sodium 156 H 153 H Chloride BUN Glucose POC Glucose Lactic Acid Calcium Direct Bilirubin Ammonia 61.0 H Total Protein Albumin Triglycerides HDL Cholesterol Lipase TSH Free T4 Salicylates Acetaminophen 09/06/18 09/06/18 09/06/18 05:10 05:10 08:43 RBC 5.06 H Hgb Hct 47.8 H D RDW 15.3 H Lymph % (Auto) Lymph # Seg Neutrophils % Seg Neutrophils # PT INR D-Dimer POC ABG pH POC ABG pCO2 POC ABG pO2 Sodium 155 H 150 H Chloride 117.0 H BUN 36 H Glucose 143 H POC Glucose Lactic Acid Calcium Direct Bilirubin Ammonia Total Protein Albumin Triglycerides HDL Cholesterol Lipase TSH Free T4 Salicylates Acetaminophen 09/06/18 13:21 RBC Hgb Hct RDW Lymph % (Auto) Lymph # Seg Neutrophils % Seg Neutrophils # PT INR D-Dimer POC ABG pH POC ABG pCO2 POC ABG pO2 Sodium Chloride BUN Glucose POC Glucose 120 H Lactic Acid Calcium Direct Bilirubin Ammonia Total Protein Albumin Triglycerides HDL Cholesterol Lipase TSH Free T4 Salicylates Acetaminophen
[2018-09-06] MEDS ORDERED: ARTIFICIAL TEARS OPHTH OINT OU PRN (15:34)
[2018-09-06] MEDS ORDERED: VASELINE LIP THERAPY TP PRN (15:34)
[2018-09-06] MEDS ORDERED: SODIUM BICARBONATE FEEDTUBE PRN (16:08)
[2018-09-06] MEDS ORDERED: PANCREAZE DR 10,500 UNIT FEEDTUBE PRN (16:08)
[2018-09-06] MEDS ORDERED: SIMPLE SYRUP FEEDTUBE PRN ×2 (16:08)
[2018-09-06] MEDS: DUONEB *Not for PRN Use IH SCH ×2 (17:50→19:35)
--- NOTE | 2018-09-06 17:57 | XRay Report ---
FINAL REPORT PROCEDURE: Chest. TECHNIQUE: Chest radiograph anteroposterior view. CPT 13626 HISTORY: Endotracheal tube placement. COMPARISON: Chest done earlier today. FINDINGS: The heart size is normal. The lungs are grossly clear. There may be some subsegmental atelectasis in the right midlung. There are no pleural effusions. An endotracheal tube terminates a couple centimete rs above the mariama. A nasogastric tube enters the stomach. The soft tissues and regional skeleton ar e unremarkable. IMPRESSION: Satisfactory intubation.
--- NOTE | 2018-09-06 18:01 | XRay Report ---
FINAL REPORT PROCEDURE: Abdomen. TECHNIQUE: Portable supine AP view. HISTORY: Orogastric tube placement. COMPARISON: Abdomen done earlier today. FINDINGS: The radiograph is centered on the upper abdomen. The bowel gas pattern is normal as far as visualized . The orogastric tube is been advanced and now terminates in the stomach. The soft tissues and region al skeleton are unremarkable. IMPRESSION: Satisfactory orogastric tube placement.
[2018-09-06] MEDS ORDERED: ZEMURON IV ONE (18:56)
[2018-09-06] MEDS ORDERED: AMIDATE IV ONE (18:56)
--- NOTE | 2018-09-06 19:09 | Progress Note ---
Assessment and Plan - Patient Problems (1) Hypernatremia Current Visit: Yes Status: Acute Plan to address problem: Probably secondary to decreased oral fluid intake. Improving. Continue free water replacement and follow sodium. (2) Acute kidney injury Current Visit: Yes Status: Acute Plan to address problem: Resolved. (3) Encephalopathy Current Visit: Yes Status: Acute Plan to address problem: Toxic/metabolic encephalopathy with cerebrovascular accident. Continue management by primary team (4) Hypercalcemia Current Visit: Yes Status: Acute Plan to address problem: Secondary to volume depletion. Improved with volume repletion Subjective Date of service: 09/06/18 Principal diagnosis: rectal bleeding Interval history: Patient seen lying in bed. Intubated on ventilator. Events noted. Objective - Exam Narrative Exam: Middle-aged male lying in bed intubated on ventilator HEENT: NCAT, pink oral mucous membrane Neck: Supple, no venous distention CVS: S1S2 RRR with no murmur, rub or gallop Chest: Faint rhonchi bilaterally Abdomen: Protuberant, soft, nontender, no organomegaly, bowel sounds are present Extremities: No edema Skin warm and dry Neuro: Intubated on ventilator, sedated - Vital Signs Vital signs: Vital Signs - 12hr 09/06/18 09/06/18 09/06/18 07:41 08:14 08:17 Temperature 100.9 F H Pulse Rate 116 H Pulse Rate [ Anterior Bilateral Throughout] Pulse Rate [ 88 Apical] Pulse Rate [ From Monitor] Respiratory 18 20 Rate Respiratory Rate [Anterior Bilateral Throughout] Blood Pressure 111/79 O2 Sat by Pulse 94 96 88 Oximetry 09/06/18 09/06/18 09/06/18 13:19 14:22 14:28 Temperature Pulse Rate 128 H 94 H 107 H Pulse Rate [ Anterior Bilateral Throughout] Pulse Rate [ Apical] Pulse Rate [ From Monitor] Respiratory 17 Rate Respiratory Rate [Anterior Bilateral Throughout] Blood Pressure 107/78 110/75 O2 Sat by Pulse 90 96 93 Oximetry 09/06/18 09/06/18 09/06/18 14:30 14:40 14:50 Temperature Pulse Rate 99 H 103 H 104 H Pulse Rate [ Anterior Bilateral Throughout] Pulse Rate [ Apical] Pulse Rate [ From Monitor] Respiratory 17 21 20 Rate Respiratory Rate [Anterior Bilateral Throughout] Blood Pressure 85/61 117/79 125/85 O2 Sat by Pulse 91 93 94 Oximetry 09/06/18 09/06/18 09/06/18 15:00 15:10 15:20 Temperature Pulse Rate 109 H 109 H 108 H Pulse Rate [ Anterior Bilateral Throughout] Pulse Rate [ Apical] Pulse Rate [ From Monitor] Respiratory 20 22 21 Rate Respiratory Rate [Anterior Bilateral Throughout] Blood Pressure 120/83 128/93 137/90 O2 Sat by Pulse 96 96 97 Oximetry 09/06/18 09/06/18 09/06/18 15:30 15:40 15:50 Temperature Pulse Rate 109 H 108 H 104 H Pulse Rate [ Anterior Bilateral Throughout] Pulse Rate [ Apical] Pulse Rate [ From Monitor] Respiratory 24 22 21 Rate Respiratory Rate [Anterior Bilateral Throughout] Blood Pressure 114/82 114/73 110/75 O2 Sat by Pulse 97 94 93 Oximetry 09/06/18 09/06/18 09/06/18 16:00 16:09 16:10 Temperature 99.6 F Pulse Rate 106 H 103 H Pulse Rate [ Anterior Bilateral Throughout] Pulse Rate [ Apical] Pulse Rate [ 94 H From Monitor] Respiratory 23 18 22 Rate Respiratory Rate [Anterior Bilateral Throughout] Blood Pressure 109/70 114/76 O2 Sat by Pulse 96 98 95 Oximetry 09/06/18 09/06/18 09/06/18 16:20 16:30 16:40 Temperature Pulse Rate 103 H 111 H 102 H Pulse Rate [ Anterior Bilateral Throughout] Pulse Rate [ Apical] Pulse Rate [ From Monitor] Respiratory 21 16 19 Rate Respiratory Rate [Anterior Bilateral Throughout] Blood Pressure 107/64 106/66 112/78 O2 Sat by Pulse 94 96 95 Oximetry 09/06/18 09/06/18 09/06/18 16:50 17:00 17:10 Temperature Pulse Rate 94 H 96 H 97 H Pulse Rate [ Anterior Bilateral Throughout] Pulse Rate [ Apical] Pulse Rate [ From Monitor] Respiratory 17 24 24 Rate Respiratory Rate [Anterior Bilateral Throughout] Blood Pressure 109/75 102/65 95/70 O2 Sat by Pulse 96 94 94 Oximetry 09/06/18 09/06/18 09/06/18 17:20 17:30 17:40 Temperature Pulse Rate 98 H 96 H 96 H Pulse Rate [ Anterior Bilateral Throughout] Pulse Rate [ Apical] Pulse Rate [ From Monitor] Respiratory 24 20 24 Rate Respiratory Rate [Anterior Bilateral Throughout] Blood Pressure 112/91 102/70 109/73 O2 Sat by Pulse 94 95 Oximetry 01/09/06/18 09/06/18 17:50 18:00 18:06 Temperature Pulse Rate 96 H 97 H 94 H Pulse Rate [ 97 H Anterior Bilateral Throughout] Pulse Rate [ Apical] Pulse Rate [ From Monitor] Respiratory 23 20 Rate Respiratory 20 Rate [Anterior Bilateral Throughout] Blood Pressure 109/67 115/76 108/74 O2 Sat by Pulse 95 95 Oximetry 09/06/18 18:10 Temperature Pulse Rate 93 H Pulse Rate [ Anterior Bilateral Throughout] Pulse Rate [ Apical] Pulse Rate [ From Monitor] Respiratory 20 Rate Respiratory Rate [Anterior Bilateral Throughout] Blood Pressure 108/74 O2 Sat by Pulse Oximetry - Lab 09/06/18 05:10 09/06/18 15:11 Most recent lab results Calcium 9.5 mg/dL (8.4-10.2) 09/06/18 05:10 Medications & Allergies - Medications Allergies/Adverse Reactions: Allergies No Known Allergies Allergy (Verified 09/02/18 13:48) Active Medications: Generic Name Dose Route Start Last Admin Trade Name Freq PRN Reason Stop Dose Admin Acetaminophen 650 mg 09/02/18 15:03 Tylenol PO Q4H PRN Pain, Mild (1-3) Albuterol 2.5 mg 09/06/18 17:35 Proventil IH Q4HRT PRN Shortness Of Breath Albuterol/Ipratropium 1 ampul 09/06/18 17:35 09/06/18 17:50 Duoneb *Not For Prn Use* IH 1 ampul Q6HRT ROXY Administration Lipase/Protease/Amylase 1 each 09/06/18 16:08 Pancrefabricio Winston 10,500 Unit FEEDTUBE PRN PRN For Clogged Feeding Tube Atorvastatin Calcium 40 mg 09/02/18 22:00 09/05/18 21:33 Lipitor PO 40 mg QHS [facility] Administration Bisacodyl 10 mg 09/02/18 15:03 Dulcolax WI QDAY PRN Constipation Hydrocortisone Acetate 1 applic 09/04/18 16:00 09/06/18 16:21 Proctosol-Hc WI Not Given Q8HR [facility] Hydrophilic Ointment 1 applic 09/06/18 15:34 Vaseline Lip Therapy TP Q2H PRN Dry Lips Ceftriaxone Sodium 1 gm in 50 mls @ 100 mls/hr 09/06/18 10:00 09/06/18 10:10 Rocephin/Ns 1 Gm/50 Ml IV 100 mls/hr Q24HR ROXY Administration Protocol Lactulose 20 gm 09/06/18 12:00 09/06/18 19:03 Cephulac PO 20 gm Q6HR ROXY Administration Magnesium Hydroxide 30 ml 09/02/18 15:03 Milk Of Magnesia PO Q4H PRN Constipation Metoclopramide HCl 10 mg 09/02/18 15:03 Reglan PO Q6H PRN Nausea And Vomiting Multi-Ingred Cream/Lotion/Oil/Oint 1 applic 09/06/18 15:34 Artificial Tears Ophth Oint OU Q4H PRN Dry Eye(s) Ondansetron HCl 4 mg 09/02/18 15:03 Zofran IV Q8H PRN Nausea And Vomiting Pantoprazole Sodium 40 mg 09/06/18 10:00 09/06/18 10:06 Protonix IV 40 mg QDAY ROXY Administration Promethazine HCl 25 mg 09/02/18 15:03 Phenergan WI Q6H PRN Nausea And Vomiting Simple Syrup 15 ml 09/06/18 16:08 Simple Syrup FEEDTUBE PRN PRN Hypoglycemia Simple Syrup 30 ml 09/06/18 16:08 Simple Syrup FEEDTUBE PRN PRN Hypoglycemia Sodium Bicarbonate 325 mg 09/06/18 16:08 Sodium Bicarbonate FEEDTUBE PRN PRN For Clogged Feeding Tube Sodium Chloride 10 ml 09/02/18 15:03 Sodium Chloride Flush Syringe 10 Ml IV PRN PRN LINE FLUSH
[2018-09-06] MEDS: PROVENTIL IH PRN (19:34)
[2018-09-06] MEDS ORDERED: DIPRIVAN 10 MG/ML 1,000 MG/100 ML BOTTLE IV SCH (21:00)
[2018-09-06] MEDS: SOLU-Medrol IV SCH (22:17)
--- NOTE | 2018-09-07 02:02 | Consultation ---
PULMONARY CRITICAL CARE CONSULTATION NOTE CONSULTING PHYSICIAN: Sunday Castillo MD REASON FOR CONSULTATION: Acute hypoxemic respiratory failure, requiring mechanical ventilator support. CHIEF COMPLAINT AND HISTORY OF PRESENT ILLNESS: As follows: The patient is a 68-year-old male with past medical history as far as we can tell significant only for a diagnosis of chronic obstructive lung disease, brought into the Emergency Room about 3 days ago with altered mental status. He was found sitting at home in his feces. The family had been trying to reach him for about 4 days. In the ER, his speech was slurred, he was confused and unable to tell his name. Evaluation was started with the stroke protocol. He did have evidence of a cerebrovascular accident, but was out of the TPA window. He was admitted to telemetry and apparently had been on telemetry. There was a question of a dislodged feeding tube in the last 24 hours and today, the patient was found with the sonorous respirations, increased work of breathing, some accessory muscle use. His mental status continued to actually decline. A decision was made therefore to intubate him at the bedside. This was done with rapid sequence intubation and he was transferred to the intensive care unit. When I stopped by to see him during the rapid response, again he was obviously in labored breathing. I do not have any history of overt emesis or aspiration, but there is a suspicion of aspiration. No seizures were reported. With regards to the patient's tobacco use/abuse history, there is a history of smoking. I am unable to quantify it at this point, but he had denied alcohol or illicit drug use or abuse at presentation. This really is as much of the history of presentation as I have. PAST MEDICAL HISTORY: Chronic obstructive lung disease and he is obese. PAST SURGICAL HISTORY: Unknown. MEDICATIONS: He was on at the time I stopped by to see him were reviewed, pertinent medications include the following: Tylenol 650 mg p.o. q. 4 hours p.r.n. mild pain, albuterol nebulizer treatments q. 4 hours p.r.n. shortness of breath, DuoNeb treatments nebulized scheduled q. 6 hours, Lipitor 40 mg p.o. at bedtime. All p.o. meds via the feeding tube now. Rocephin 1 gram IV daily, Proctosol hydrocortisone 1 application q. 8 hours scheduled presumably for hemorrhoids, lactulose 20 mg p.o. q. 6 hours scheduled, milk of magnesia p.r.n. 30 mL q. 4 hours p.r.n. constipation, Reglan 10 mg p.o. q. 6 hours p.r.n. nausea and vomiting, Zofran 4 mg IV q. 8 hours p.r.n. nausea and vomiting. ALLERGIES: No known drug allergies. DIET: Obese gentleman, acute weight loss or gain history is unknown. FAMILY AND SOCIAL HISTORY: Apparently lived alone, lived in the community. He does have a smoking history. He had denied alcohol or illicit drug use or abuse at presentation. Family history is described as insignificant. He is unable to give me that history right now. REVIEW OF SYSTEMS: I am unable to obtain it based on the patient's medical and mental condition; however, since he has been here, no reported seizures. No gross hematochezia or melena. No gross hematuria, no hematemesis and no witnessed seizures. PHYSICAL EXAMINATION: VITAL SIGNS: At presentation in the emergency room, he was with a low-grade fever of 100.9 degrees Fahrenheit rectally, pulse was 125, respiratory rate 47, blood pressure 130/84, oxygen sats were 99%, inspired oxygen concentration at the time was not recorded. When I stopped by to see him in the room was on a 50% Ventimask with O2 sats 93%. GENERAL: He is an obese, elderly looking male, normocephalic, atraumatic, lying in bed with moderately increased respiratory effort at rest. HEAD, EYES, EARS, NOSE AND THROAT: He is anicteric. No conjunctival erythema. Oropharynx is dry. Grossly, no palpable lymph nodes in the supraclavicular or submandibular lymph node chains. No gross jugular venous distention, no thyromegaly. LUNGS: Auscultation of both lung callahan significant for diminished bilateral breath sounds, expiratory rhonchi as well as referred upper airway sonorous sounds. HEART: Heart sounds 1 and 2 are heard. They were regular in rate and rhythm at the time of my evaluation. ABDOMEN: Soft, full, protuberant. Bowel sounds positive, nontender, no palpable hepatosplenomegaly. EXTREMITIES: Without overt digital clubbing, cyanosis, or pedal edema. Dorsalis pedis pulses are palpable bilaterally. NEUROLOGIC: Pupils are equal, round, about 3 mm, reactive to light. Extraocular muscle movements could not be assessed. He had some spontaneous movements to all extremities. The skin was of normal turgor without cellulitis or rash. LABORATORY DATA: From my review are as follows: Admission white cell count 10,800 with a hemoglobin of 18.7, hematocrit of 57.7, platelet count 327, no band forms. INR was 1.74 at presentation. D-dimer was elevated 4180. Serum sodium was 159 at presentation with a potassium of 3.7, chloride of 115, bicarbonate 27, BUN of 19 and creatinine of 1.5. Glucose was 172. Lactic acid level was 2.3 at presentation. Liver function tests essentially within normal limits. Ammonia was high at 75 on the . TSH was less than 0.005 and free T4 was elevated at 2.4. Urinalysis was negative for nitrites and leukocyte esterase. Urine drug screen was negative. Alcohol, Tylenol, aspirin levels were within expected limits/undetectable. Serum sodium was 155 today. BUN is 36, creatinine is now within normal limits. Ammonia is 58. Microbiology studies: Blood cultures no growth to date. Radiographic studies have been reviewed. At presentation, he had a CT scan of his head. I have reviewed the results. Essentially, it is a normal CT scan of the brain. He also had a chest x-ray at presentation. I am pulling up that film. An MRI of the brain was also done on the day of presentation. It showed chronic involutional and ischemic changes. No acute injury or hemorrhoids. Initial chest x-ray still loading for me to review the film; however, the report mentioned it as an unremarkable chest x-ray at that time. A CT angiogram was also done of his chest at presentation. I am unable to pull up the film. No evidence of pulmonary embolus. He has emphysematous changes and the right lower lobe infiltrate concerning for a pneumonia. A chest x-ray has been ordered for today post intubation described as satisfactory intubation with possible subsegmental atelectasis of the right mid lung. ASSESSMENT: 1. Acute hypoxemic respiratory failure, now on mechanical ventilatory support. 2. Acute chronic obstructive pulmonary disease exacerbation. 3. Pneumonia, right lower lobe present at presentation, possibly aspiration. 4. Obesity. 5. Acute encephalopathy. 6. Possible hyperthyroidism. 7. Elevated serum ammonia, now resolved. 8. Elevated D-dimer with a negative pulmonary embolism workup. 9. Coagulopathy. 10. Hyperglycemia. 11. Acute kidney injury, resolved. 12. Hypernatremia. PLAN: We will keep him on full mechanical ventilator support in the short time. The plan will be to liberating from the mechanical ventilator if he meets criteria. I am bothered that the mental status will be a rate limiting factor. If that is the case, we will discuss with family. He may need a tracheostomy to liberating from the ventilator. Oxygen will be weaned to keep sats greater than or equal to about 90%. Aspiration precautions and ventilator-associated pneumonia bundle has been instituted. We will target mean arterial pressures greater than 65 mmHg. Azotemia is improving. Free water flushes will be reinstituted. Enteral nutrition will be restarted. I will get a lactic acid level repeat as well as a CRP level in light of his clinical decline, but the plan will be to follow him off antibiotics at this time. Sedation will be as necessary, titrated to a RASS scale of 0 to -1. He is going to be started on GI prophylaxis. I should mention he is on Rocephin. For now, we will continue the Rocephin and deescalate antibiotics based on results of clinical and microbiologic data as well as markers including lactic acid and CRP levels. Again, enteral nutrition will be the feeding modality of choice. Neurology evaluation will be requested. Flu and pneumonia vaccination will be addressed per protocol. Thank you very much for the consult. Dr. Castillo will follow along and make further recommendations as picture progresses/becomes clearer. He is critically ill, at high risk of deterioration and from cardiopulmonary as well as neurologic system deterioration. At this time, I have spent about 40-45 minutes of critical care time without overlap and excluding procedural time that may be necessary. JOB# [id number] LAURA/DAVID LAU
[2018-09-07] MEDS: CEPHULAC PO SCH ×4 (02:11→23:41)
[2018-09-07] MEDS: FREE WATER PO SCH ×8 (02:13→23:45)
[2018-09-07 03:31] LABS: Hematocrit 50.2 % (35.5-45.6); Hemoglobin 16.1 gm/dl (11.8-15.2); Mean Corpuscular HGB Conc 32 % (32-34); Mean Corpuscular Volume 95 fl (84-94); Platelet Count 180 K/mm3 (140-440); Red Blood Count 5.32 M/mm3 (3.65-5.03); Red Cell Distribution Width 15.6 % (13.2-15.2)
[2018-09-07 03:59] LABS: Albumin 1.8 g/dL (3.9-5); BUN/Creatinine Ratio 39; Blood Urea Nitrogen 47 mg/dL (9-20); Hemolysis Index 115
[2018-09-07 04:14] LABS: Alanine Aminotransferase 36 units/L (7-56)
--- NOTE | 2018-09-07 05:48 | XRay Report ---
FINAL REPORT PROCEDURE: XR CHEST 1V AP TECHNIQUE: Chest radiograph anteroposterior view. CPT 77745 HISTORY: follow up respiratory failure COMPARISON: 09/06/2018 FINDINGS: Heart: Normal. Mediastinum/Vessels: Normal. Lungs/Pleural space: Lungs are expanded. There are mild fibrotic changes at the lung bases. There are no infiltrates, effusions or pneumothoraces.. Bony thorax: No acute osseous abnormality. Life support devices: NG tube is in the stomach. ET tube is in the mid trachea.. IMPRESSION: No acute cardiopulmonary abnormality.
[2018-09-07] MEDS ORDERED: KIONEX PO NR (07:26)
[2018-09-07] MEDS: DUONEB *Not for PRN Use IH SCH ×4 (07:46→20:23)
[2018-09-07] MEDS: BROVANA NEBU IH SCH ×3 (07:56→20:23)
[2018-09-07] MEDS: PULMICORT IH SCH ×2 (07:56→20:23)
[2018-09-07] MEDS: SUBLIMAZE IV PRN (07:59)
[2018-09-07] MEDS: ROCEPHIN/NS 1 GM/50 ML 1 GM/50 ML BAG IV SCH (11:00)
[2018-09-07] MEDS ORDERED: KIONEX PO ONE (11:00)
[2018-09-07] MEDS: SOLU-Medrol IV SCH ×3 (11:01→23:43)
[2018-09-07] MEDS: PROCTOSOL-HC PR SCH ×5 (11:01→23:44)
[2018-09-07] MEDS: PROTONIX IV SCH (11:02)
--- NOTE | 2018-09-07 12:41 | Progress Note ---
Assessment and Plan Acute hypoxemic respiratory failure, now on mechanical ventilatory support. Acute chronic obstructive pulmonary disease exacerbation. Pneumonia, right lower lobe present at presentation, possibly aspiration. Obesity. Acute encephalopathy. Possible hyperthyroidism. Elevated serum ammonia, now resolved. Elevated D-dimer with a negative pulmonary embolism workup. Coagulopathy. Hyperglycemia. Acute kidney injury, resolved. Hypernatremia - continue to wean oxygen to keep O2 Sat's > 90% - VAP bundle addressed - titrate sedation for RASS 0 to -1 - neurology evaluation ongoing - begin enteral nutrition as tolerated - continue bronchodilators with pulmonary hygiene per RT - daily SBT evaluation - daily SAT's - mobility protocol for pressure ulcer prophylaxis - GI & VTE prophylaxis - glycemic control with SSI for target BG 140 - 180 mg/dL - resume chronic disease medications - continue other care per attending / other consultants ...... re-evaluate in am & prn ... care plan discussed with attending The high probability of a clinically significant, sudden or life threatening deterioration of the [Pulmonary,cardiac & neurologic] system(s) required my full and direct attention, intervention and personal management. The aggregate critical care time was [35] minutes. This time is in addition to time spent performing reported procedures but includes the following: [x] Data Review and interpretation [x] Patient assessment and monitoring of vital signs [x] Documentation Subjective Date of service: 09/07/18 Principal diagnosis: Ac Hypoxemic Resp failure; AE-COPD; Pneumonia (Aspiration); Ac encephalopat Interval history: Patient is seen today for: Acute hypoxemic respiratory failure, now on mechanical ventilatory support; Acute chronic obstructive pulmonary disease exacerbation; Pneumonia, right lower lobe present at presentation, possibly aspiration; Obesity; Acute encephalopathy. Seen and examined at bedside; 24hour events reviewed; nursing and respiratory care staff consulted; no adverse overnight events reported to me; remains on MVS; AMS is persistent; no emesis or overt aspiration; no gross bleeding; no seizure activity reported Objective Vital Signs - 12hr 09/07/18 09/07/18 09/07/18 00:50 01:00 01:10 Temperature Pulse Rate 113 H 111 H 113 H Pulse Rate [ Anterior Bilateral Throughout] Pulse Rate [ From Monitor] Respiratory 20 20 24 Rate Respiratory Rate [Anterior Bilateral Throughout] Blood Pressure 85/63 99/69 126/93 O2 Sat by Pulse 94 95 88 Oximetry 09/07/18 09/07/18 09/07/18 01:20 01:30 01:40 Temperature Pulse Rate 114 H 114 H 111 H Pulse Rate [ Anterior Bilateral Throughout] Pulse Rate [ From Monitor] Respiratory 22 22 21 Rate Respiratory Rate [Anterior Bilateral Throughout] Blood Pressure 116/86 122/82 124/81 O2 Sat by Pulse 100 91 93 Oximetry 09/07/18 09/07/18 09/07/18 01:50 02:00 02:10 Temperature Pulse Rate 113 H 113 H 111 H Pulse Rate [ Anterior Bilateral Throughout] Pulse Rate [ From Monitor] Respiratory 23 17 30 H Rate Respiratory Rate [Anterior Bilateral Throughout] Blood Pressure 118/84 118/84 130/88 O2 Sat by Pulse 89 92 92 Oximetry 09/07/18 09/07/18 09/07/18 02:20 02:30 02:40 Temperature Pulse Rate 115 H 110 H 112 H Pulse Rate [ Anterior Bilateral Throughout] Pulse Rate [ From Monitor] Respiratory 29 H 65 H 49 H Rate Respiratory Rate [Anterior Bilateral Throughout] Blood Pressure 119/81 128/79 116/88 O2 Sat by Pulse 92 90 92 Oximetry 09/07/18 09/07/18 09/07/18 02:50 03:00 03:10 Temperature Pulse Rate 113 H 111 H 108 H Pulse Rate [ Anterior Bilateral Throughout] Pulse Rate [ From Monitor] Respiratory 39 H 63 H 67 H Rate Respiratory Rate [Anterior Bilateral Throughout] Blood Pressure 117/84 128/79 120/77 O2 Sat by Pulse 99 89 89 Oximetry 09/07/18 09/07/18 09/07/18 03:20 03:30 03:40 Temperature Pulse Rate 114 H 113 H 128 H Pulse Rate [ Anterior Bilateral Throughout] Pulse Rate [ From Monitor] Respiratory 62 H 29 H 22 Rate Respiratory Rate [Anterior Bilateral Throughout] Blood Pressure 125/82 125/82 123/90 O2 Sat by Pulse 89 93 93 Oximetry 09/07/18 09/07/18 09/07/18 03:50 04:00 04:10 Temperature 100.1 F H Pulse Rate 115 H 100 H 110 H Pulse Rate [ Anterior Bilateral Throughout] Pulse Rate [ From Monitor] Respiratory 62 H 17 20 Rate Respiratory Rate [Anterior Bilateral Throughout] Blood Pressure 122/84 122/84 124/76 O2 Sat by Pulse 90 Oximetry 09/07/18 09/07/18 09/07/18 04:20 04:30 04:32 Temperature Pulse Rate 113 H 108 H Pulse Rate [ Anterior Bilateral Throughout] Pulse Rate [ 112 H From Monitor] Respiratory 21 24 28 H Rate Respiratory Rate [Anterior Bilateral Throughout] Blood Pressure 120/90 110/77 O2 Sat by Pulse 94 92 95 Oximetry 09/07/18 09/07/18 09/07/18 04:40 04:50 05:00 Temperature Pulse Rate 107 H 106 H 107 H Pulse Rate [ Anterior Bilateral Throughout] Pulse Rate [ From Monitor] Respiratory 34 H 43 H 28 H Rate Respiratory Rate [Anterior Bilateral Throughout] Blood Pressure 109/82 112/80 116/68 O2 Sat by Pulse 92 92 Oximetry 09/07/18 09/07/18 09/07/18 05:10 05:20 05:30 Temperature Pulse Rate 103 H 106 H 103 H Pulse Rate [ Anterior Bilateral Throughout] Pulse Rate [ From Monitor] Respiratory 28 H 27 H 26 H Rate Respiratory Rate [Anterior Bilateral Throughout] Blood Pressure 120/76 117/80 111/75 O2 Sat by Pulse 97 93 91 Oximetry 09/07/18 09/07/18 09/07/18 05:40 05:50 06:00 Temperature Pulse Rate 101 H 103 H 107 H Pulse Rate [ Anterior Bilateral Throughout] Pulse Rate [ From Monitor] Respiratory 22 27 H 16 Rate Respiratory Rate [Anterior Bilateral Throughout] Blood Pressure 117/82 126/76 126/76 O2 Sat by Pulse 90 91 92 Oximetry 09/07/18 09/07/18 09/07/18 06:10 06:20 06:30 Temperature Pulse Rate 114 H 113 H 114 H Pulse Rate [ Anterior Bilateral Throughout] Pulse Rate [ From Monitor] Respiratory 13 18 16 Rate Respiratory Rate [Anterior Bilateral Throughout] Blood Pressure 131/98 123/105 123/105 O2 Sat by Pulse 91 90 88 Oximetry 09/07/18 09/07/18 09/07/18 06:40 06:50 07:00 Temperature Pulse Rate 113 H 112 H 107 H Pulse Rate [ Anterior Bilateral Throughout] Pulse Rate [ From Monitor] Respiratory 25 H 28 H 21 Rate Respiratory Rate [Anterior Bilateral Throughout] Blood Pressure 117/96 135/90 142/97 O2 Sat by Pulse 91 91 91 Oximetry 09/07/18 09/07/18 09/07/18 07:10 07:20 07:30 Temperature Pulse Rate 101 H 111 H 110 H Pulse Rate [ Anterior Bilateral Throughout] Pulse Rate [ From Monitor] Respiratory 21 18 18 Rate Respiratory Rate [Anterior Bilateral Throughout] Blood Pressure 135/77 135/77 145/96 O2 Sat by Pulse 88 93 87 Oximetry 09/07/18 09/07/18 09/07/18 07:40 07:50 07:57 Temperature Pulse Rate 112 H 115 H 106 H Pulse Rate [ 114 H Anterior Bilateral Throughout] Pulse Rate [ From Monitor] Respiratory 18 Rate Respiratory 24 Rate [Anterior Bilateral Throughout] Blood Pressure 141/92 130/108 143/89 O2 Sat by Pulse 90 92 92 Oximetry 09/07/18 09/07/18 09/07/18 08:00 08:10 08:20 Temperature 97.3 F L Pulse Rate 112 H 106 H 104 H Pulse Rate [ Anterior Bilateral Throughout] Pulse Rate [ From Monitor] Respiratory 22 19 19 Rate Respiratory Rate [Anterior Bilateral Throughout] Blood Pressure 143/89 132/81 132/81 O2 Sat by Pulse 89 87 Oximetry 09/07/18 09/07/18 09/07/18 08:30 08:40 08:50 Temperature Pulse Rate 101 H 100 H 101 H Pulse Rate [ Anterior Bilateral Throughout] Pulse Rate [ From Monitor] Respiratory 20 20 20 Rate Respiratory Rate [Anterior Bilateral Throughout] Blood Pressure 109/70 111/74 104/76 O2 Sat by Pulse 89 95 82 L Oximetry 09/07/18 09/07/18 09/07/18 09:00 09:10 09:20 Temperature Pulse Rate 99 H 103 H 110 H Pulse Rate [ Anterior Bilateral Throughout] Pulse Rate [ From Monitor] Respiratory 20 20 13 Rate Respiratory Rate [Anterior Bilateral Throughout] Blood Pressure 112/79 106/85 109/70 O2 Sat by Pulse 93 97 Oximetry 09/07/18 09/07/18 09/07/18 09:30 09:40 09:50 Temperature Pulse Rate 109 H Pulse Rate [ Anterior Bilateral Throughout] Pulse Rate [ From Monitor] Respiratory 19 Rate Respiratory Rate [Anterior Bilateral Throughout] Blood Pressure 124/103 141/79 127/81 O2 Sat by Pulse 96 95 94 Oximetry 09/07/18 09/07/18 09/07/18 10:00 10:10 10:20 Temperature Pulse Rate 96 H Pulse Rate [ Anterior Bilateral Throughout] Pulse Rate [ From Monitor] Respiratory 20 Rate Respiratory Rate [Anterior Bilateral Throughout] Blood Pressure 127/81 138/94 138/94 O2 Sat by Pulse 97 97 92 Oximetry 01/27/19 01/27/19 01/27/19 10:30 10:40 10:50 Temperature Pulse Rate 96 H 96 H 96 H Pulse Rate [ Anterior Bilateral Throughout] Pulse Rate [ From Monitor] Respiratory 20 21 20 Rate Respiratory Rate [Anterior Bilateral Throughout] Blood Pressure 98/74 98/74 105/65 O2 Sat by Pulse 94 94 95 Oximetry 09/07/18 09/07/18 09/07/18 11:00 11:10 11:20 Temperature Pulse Rate 96 H 96 H 96 H Pulse Rate [ Anterior Bilateral Throughout] Pulse Rate [ From Monitor] Respiratory 21 22 21 Rate Respiratory Rate [Anterior Bilateral Throughout] Blood Pressure 113/70 110/74 112/80 O2 Sat by Pulse 94 94 94 Oximetry 09/07/18 09/07/18 09/07/18 11:30 11:40 11:50 Temperature Pulse Rate 96 H 97 H 97 H Pulse Rate [ Anterior Bilateral Throughout] Pulse Rate [ From Monitor] Respiratory 21 20 20 Rate Respiratory Rate [Anterior Bilateral Throughout] Blood Pressure 109/75 104/75 108/75 O2 Sat by Pulse 95 95 95 Oximetry 09/07/18 12:00 Temperature 98.3 F Pulse Rate 97 H Pulse Rate [ Anterior Bilateral Throughout] Pulse Rate [ From Monitor] Respiratory 21 Rate Respiratory Rate [Anterior Bilateral Throughout] Blood Pressure 126/78 O2 Sat by Pulse 97 Oximetry Constitutional: appears uncomfortable, other (elderly looking CM, normocephalica nd atraumatic with mildly increased resp effort on MVS) Eyes: non-icteric ENT: oropharynx moist, other (ETT 23 cm SHADIA) Neck: supple, no lymphadenopathy, no JVD, other (large neck circumference) Effort: mildly labored Ascultation: Bilateral: diminished breath sounds, rhonchi Percussion: Bilateral: not dull Cardiovascular: regular rate and rhythm Gastrointestinal: normoactive bowel sounds, soft, non-tender, non-distended Integumentary: normal Extremities: no cyanosis, no edema, pink and warm, pulses normal Neurologic: non-focal exam, pupils equal and round, motor strength normal and, other (encephalopathic) Psychiatric: other (unable to assess) CBC and BMP: 09/08/18 04:22 09/08/18 08:40 ABG, PT/INR, D-dimer: ABG POC ABG pH 7.397 (7.35-7.45) 09/07/18 03:43 POC ABG pCO2 46.5 (35-45) H 09/07/18 03:43 POC ABG pO2 102 (80-105) 09/07/18 03:43 POC ABG HCO3 28.6 09/07/18 03:43 POC ABG Total CO2 30 09/07/18 03:43 POC ABG O2 Sat 98 09/07/18 03:43 PT/INR, D-dimer PT 21.8 Sec. (12.2-14.9) H 09/03/18 11:26 INR 1.86 (0.87-1.13) H 09/03/18 11:26 D-Dimer 4180.35 ng/mlDDU (0-234) H 09/02/18 12:35 Abnormal lab findings: Abnormal Labs 09/02/18 09/02/18 09/02/18 12:35 12:35 12:35 RBC 6.15 H Hgb 18.7 H Hct 57.7 H MCV RDW 15.5 H Lymph % (Auto) 8.8 L Lymph # 0.9 L Seg Neutrophils % 83.2 H Seg Neutrophils # 8.9 H PT 20.8 H INR 1.74 H D-Dimer 4180.35 H POC ABG pH POC ABG pCO2 POC ABG pO2 Sodium Potassium Chloride Carbon Dioxide BUN Glucose POC Glucose Lactic Acid Calcium Total Bilirubin Direct Bilirubin AST Ammonia C-Reactive Protein Total Protein Albumin Triglycerides HDL Cholesterol Lipase TSH Free T4 Salicylates < 0.3 L Acetaminophen 09/02/18 09/02/18 09/02/18 12:35 12:35 12:35 RBC Hgb Hct MCV RDW Lymph % (Auto) Lymph # Seg Neutrophils % Seg Neutrophils # PT INR D-Dimer POC ABG pH POC ABG pCO2 POC ABG pO2 Sodium Potassium Chloride Carbon Dioxide BUN Glucose POC Glucose 167 H Lactic Acid 3.20 H* Calcium Total Bilirubin Direct Bilirubin AST Ammonia C-Reactive Protein Total Protein Albumin Triglycerides HDL Cholesterol Lipase TSH Free T4 Salicylates Acetaminophen < 5.0 L 09/02/18 09/02/18 09/02/18 13:36 14:40 16:45 RBC Hgb Hct MCV RDW Lymph % (Auto) Lymph # Seg Neutrophils % Seg Neutrophils # PT INR D-Dimer POC ABG pH POC ABG pCO2 POC ABG pO2 Sodium 159 H Potassium Chloride 114.7 H Carbon Dioxide BUN 90 H Glucose 172 H POC Glucose Lactic Acid 2.30 H* Calcium 10.8 H Total Bilirubin Direct Bilirubin 0.3 H AST Ammonia C-Reactive Protein Total Protein Albumin 2.6 L Triglycerides HDL Cholesterol Lipase 81 H TSH < 0.005 L Free T4 2.40 H Salicylates Acetaminophen 09/03/18 09/03/18 09/03/18 11:26 11:26 11:26 RBC Hgb Hct MCV RDW Lymph % (Auto) Lymph # Seg Neutrophils % Seg Neutrophils # PT 21.8 H INR 1.86 H D-Dimer POC ABG pH POC ABG pCO2 POC ABG pO2 Sodium 160 H Potassium Chloride 122.6 H Carbon Dioxide BUN 69 H Glucose 127 H POC Glucose Lactic Acid Calcium Total Bilirubin Direct Bilirubin AST Ammonia C-Reactive Protein Total Protein Albumin 2.1 L Triglycerides HDL Cholesterol Lipase TSH Free T4 Salicylates Acetaminophen 09/03/18 09/03/18 09/03/18 11:26 15:39 20:23 RBC Hgb Hct MCV RDW Lymph % (Auto) Lymph # Seg Neutrophils % Seg Neutrophils # PT INR D-Dimer POC ABG pH POC ABG pCO2 POC ABG pO2 Sodium 160 H 160 H Potassium Chloride Carbon Dioxide BUN Glucose POC Glucose Lactic Acid Calcium Total Bilirubin Direct Bilirubin AST Ammonia 75.0 H C-Reactive Protein Total Protein Albumin Triglycerides HDL Cholesterol Lipase TSH Free T4 Salicylates Acetaminophen 09/03/18 09/04/18 09/04/18 Unknown 02:38 05:20 RBC Hgb Hct MCV RDW Lymph % (Auto) Lymph # Seg Neutrophils % Seg Neutrophils # PT INR D-Dimer POC ABG pH POC ABG pCO2 POC ABG pO2 Sodium 160 H 166 H* Potassium Chloride 129.2 H Carbon Dioxide BUN 57 H Glucose 137 H POC Glucose Lactic Acid Calcium Total Bilirubin Direct Bilirubin AST Ammonia C-Reactive Protein Total Protein 5.8 L Albumin 2.7 L Triglycerides 150 H HDL Cholesterol 21 L Lipase TSH Free T4 Salicylates Acetaminophen 09/04/18 09/04/18 09/04/18 05:20 09:11 13:35 RBC 5.12 H Hgb 15.5 H D 15.6 H Hct 48.0 H D 48.1 H MCV RDW 15.9 H Lymph % (Auto) 11.8 L Lymph # 0.8 L Seg Neutrophils % 80.1 H Seg Neutrophils # PT INR D-Dimer POC ABG pH POC ABG pCO2 POC ABG pO2 Sodium 166 H* Potassium Chloride Carbon Dioxide BUN Glucose POC Glucose Lactic Acid Calcium Total Bilirubin Direct Bilirubin AST Ammonia C-Reactive Protein Total Protein Albumin Triglycerides HDL Cholesterol Lipase TSH Free T4 Salicylates Acetaminophen 09/04/18 09/04/18 09/04/18 13:35 21:04 21:04 RBC Hgb 16.9 H Hct 58.3 H D MCV RDW Lymph % (Auto) Lymph # Seg Neutrophils % Seg Neutrophils # PT INR D-Dimer POC ABG pH POC ABG pCO2 POC ABG pO2 Sodium 164 H* 159 H Potassium Chloride Carbon Dioxide BUN Glucose POC Glucose Lactic Acid Calcium Total Bilirubin Direct Bilirubin AST Ammonia C-Reactive Protein Total Protein Albumin Triglycerides HDL Cholesterol Lipase TSH Free T4 Salicylates Acetaminophen 09/05/18 09/05/18 09/05/18 01:11 02:51 03:17 RBC Hgb Hct MCV RDW Lymph % (Auto) Lymph # Seg Neutrophils % Seg Neutrophils # PT INR D-Dimer POC ABG pH 7.340 L POC ABG pCO2 57.8 H POC ABG pO2 74 L Sodium 152 H Potassium Chloride Carbon Dioxide BUN Glucose POC Glucose 116 H Lactic Acid Calcium Total Bilirubin Direct Bilirubin AST Ammonia C-Reactive Protein Total Protein Albumin Triglycerides HDL Cholesterol Lipase TSH Free T4 Salicylates Acetaminophen 09/05/18 09/05/18 09/05/18 07:45 10:34 15:21 RBC Hgb Hct MCV RDW Lymph % (Auto) Lymph # Seg Neutrophils % Seg Neutrophils # PT INR D-Dimer POC ABG pH POC ABG pCO2 POC ABG pO2 Sodium 156 H 153 H Potassium Chloride Carbon Dioxide BUN Glucose POC Glucose Lactic Acid Calcium Total Bilirubin Direct Bilirubin AST Ammonia 61.0 H C-Reactive Protein Total Protein Albumin Triglycerides HDL Cholesterol Lipase TSH Free T4 Salicylates Acetaminophen 09/06/18 09/06/18 09/06/18 05:10 05:10 08:43 RBC 5.06 H Hgb Hct 47.8 H D MCV RDW 15.3 H Lymph % (Auto) Lymph # Seg Neutrophils % Seg Neutrophils # PT INR D-Dimer POC ABG pH POC ABG pCO2 POC ABG pO2 Sodium 155 H 150 H Potassium Chloride 117.0 H Carbon Dioxide BUN 36 H Glucose 143 H POC Glucose Lactic Acid Calcium Total Bilirubin Direct Bilirubin AST Ammonia C-Reactive Protein Total Protein Albumin Triglycerides HDL Cholesterol Lipase TSH Free T4 Salicylates Acetaminophen 09/06/18 09/06/18 09/06/18 13:21 15:11 16:23 RBC Hgb Hct MCV RDW Lymph % (Auto) Lymph # Seg Neutrophils % Seg Neutrophils # PT INR D-Dimer POC ABG pH POC ABG pCO2 49.1 H POC ABG pO2 107 H Sodium 151 H Potassium Chloride Carbon Dioxide BUN Glucose POC Glucose 120 H Lactic Acid Calcium Total Bilirubin Direct Bilirubin AST Ammonia C-Reactive Protein Total Protein Albumin Triglycerides HDL Cholesterol Lipase TSH Free T4 Salicylates Acetaminophen 09/06/18 09/07/18 09/07/18 21:58 00:25 02:49 RBC 5.32 H Hgb 16.1 H Hct 50.2 H MCV 95 H RDW 15.6 H Lymph % (Auto) Lymph # Seg Neutrophils % Seg Neutrophils # PT INR D-Dimer POC ABG pH POC ABG pCO2 POC ABG pO2 Sodium 150 H Potassium Chloride Carbon Dioxide BUN Glucose POC Glucose Lactic Acid Calcium Total Bilirubin Direct Bilirubin AST Ammonia C-Reactive Protein 9.00 H Total Protein Albumin Triglycerides HDL Cholesterol Lipase TSH Free T4 Salicylates Acetaminophen 09/07/18 09/07/18 09/07/18 02:49 03:43 09:17 RBC Hgb Hct MCV RDW Lymph % (Auto) Lymph # Seg Neutrophils % Seg Neutrophils # PT INR D-Dimer POC ABG pH POC ABG pCO2 46.5 H POC ABG pO2 Sodium 149 H 155 H Potassium 5.2 H D Chloride 116.1 H Carbon Dioxide 21 L BUN 47 H Glucose 122 H POC Glucose Lactic Acid Calcium Total Bilirubin 1.80 H Direct Bilirubin AST 83 H Ammonia C-Reactive Protein Total Protein Albumin 1.8 L Triglycerides HDL Cholesterol Lipase TSH Free T4 Salicylates Acetaminophen Chest x-ray: image reviewed (faint RLL infiltrate) Allied health notes reviewed: nursing
--- NOTE | 2018-09-07 13:14 | Progress Note ---
Assessment and Plan Assessment and plan: 68 YO Male with Obesity Hypoventilation, COPD presents to ED for evaluation. Pt is confused, lethargic and unable to provide history. Pt history provided by his brother who is at bedside during exam and interview. As per brother, the patient has not returned phone calls over the past 4 days. As a result, the brother went to the home but the patient did not answer the door. Law Enforcement notified, and entry into the home was obtained. The patient was found down and covered in his own feces. Pt exhibited slurred speech, confusion. EMS notified and upon arrival, the patient was found to have a neurologic deficit. A code stroke was called, and the patient was transported to [facility]. Pt seen and evaluated in ED and found to have evidence of CVA as well as SIRS, Acidosis, and Encephalopathy. Pt admitted to telemetry and initiated on CVA protocol. Acute Metabolic encephalopathy Acute Hypoxic Respiratory failure Hypernatremia Rectal Bleed. Aspiration Pneumonia Obesity Hypoventilation syndrome ETOH use disorder hYPOTHYRODISIM Moderate Protien calorie Malnutrition Secondary Coagulopathy ?UNDERLYING LIVER DISEASE VS IATROGENIC MEDICATION Sepsis Tobacco use disorder per hx Plan Continue supportive care, s/p Intubation yesterday. Continue aspiration precautions [employer] Consultant input appreciated Family updated Home meds reviewed, Nurse to input in system Continue free water and lactulos Nephrology consult to assist Discontinue ASA. NO CVA and now with rectal bleed. Seizure precautions Continue Empiric abx Aspiration precautions DVT/GI prophy Call placed to family to obtain more clinical information Still awaiting home meds Requested records from [facility] still pending. Discussed with Nursing staff The high probability of a clinically significant, sudden or life threatening deterioration of the [pulmonary, skatesman] system(s) required my full and direct attention, intervention and personal management. The aggregate critical care time was [45] minutes. This time is in addition to time spent performing reported procedures but includes the following: [x] Data Review and interpretation [x] Patient assessment and monitoring of vital signs [x] Documentation [x] Medication orders and management History Interval history: Patient seen and examined, remains confused. Intubated for respiratory air way protection and suspicion for aspiration Hospitalist Physical - Physical exam Narrative exam: General appearance: Present: mild distress, obese, remains in restraints - EENT Eyes: Present: PERRL, EOM intact. ETT in place ENT: poor dentition - Neck Neck: Present: supple, normal ROM - Respiratory Respiratory effort: labored, improved Respiratory: bilateral: [place] - Cardiovascular Rhythm: regular Heart Sounds: Present: S1 & S2. Absent: systolic murmur - Extremities Extremities: no ischemia, pulses intact, pulses symmetrical, No edema, normal temperature, normal color, Full ROM Peripheral Pulses: within normal limits - Abdominal General gastrointestinal: soft, non-tender, non-distended - Integumentary Integumentary: Present: clear, warm- Hemorrhoids - Psychiatric Psychiatric: Confused - Neurologic Neurologic: CNII-XII intact, moves all extremities, confused - Allied Health Allied health notes reviewed: nursing - Constitutional Vitals: Temp Pulse Resp BP Pulse Ox 98.3 F 97 H 21 126/78 98 09/07/18 12:00 09/07/18 12:00 09/07/18 12:00 09/07/18 12:00 09/07/18 12:00 General appearance: Present: mild distress, obese, disheveled Results - Labs CBC & Chem 7: 09/07/18 02:49 09/07/18 09:17 Labs: Laboratory Last Values WBC 9.0 K/mm3 (4.5-11.0) 09/07/18 02:49 RBC 5.32 M/mm3 (3.65-5.03) H 09/07/18 02:49 Hgb 16.1 gm/dl (11.8-15.2) H 09/07/18 02:49 Hct 50.2 % (35.5-45.6) H 09/07/18 02:49 MCV 95 fl (84-94) H 09/07/18 02:49 MCH 30 pg (28-32) 09/07/18 02:49 MCHC 32 % (32-34) 09/07/18 02:49 RDW 15.6 % (13.2-15.2) H 09/07/18 02:49 Plt Count 180 K/mm3 (140-440) 09/07/18 02:49 Lymph % (Auto) 11.8 % (13.4-35.0) L 09/04/18 05:20 [place] % (Auto) 6.8 % (0.0-7.3) 09/04/18 05:20 Eos % (Auto) 1.0 % (0.0-4.3) 09/04/18 05:20 Baso % (Auto) 0.3 % (0.0-1.8) 09/04/18 05:20 Lymph # 0.8 K/mm3 (1.2-5.4) L 09/04/18 05:20 [place] # 0.5 K/mm3 (0.0-0.8) 09/04/18 05:20 Eos # 0.1 K/mm3 (0.0-0.4) 09/04/18 05:20 Baso # 0.0 K/mm3 (0.0-0.1) 09/04/18 05:20 Seg Neutrophils % 80.1 % (40.0-70.0) H 09/04/18 05:20 Seg Neutrophils # 5.5 K/mm3 (1.8-7.7) 09/04/18 05:20 PT 21.8 Sec. (12.2-14.9) H 09/03/18 11:26 INR 1.86 (0.87-1.13) H 09/03/18 11:26 APTT 32.5 Sec. (24.2-36.6) 09/02/18 12:35 D-Dimer 4180.35 ng/mlDDU (0-234) H 09/02/18 12:35 POC ABG pH 7.397 (7.35-7.45) 09/07/18 03:43 POC ABG pCO2 46.5 (35-45) H 09/07/18 03:43 POC ABG pO2 102 (80-105) 09/07/18 03:43 POC ABG HCO3 28.6 09/07/18 03:43 POC ABG Total CO2 30 09/07/18 03:43 POC ABG O2 Sat 98 09/07/18 03:43 POC ABG Base Excess 4 09/07/18 03:43 FiO2 45 % 09/07/18 03:43 Sodium 155 mmol/L (137-145) H 09/07/18 09:17 Potassium 5.2 mmol/L (3.6-5.0) H D 09/07/18 02:49 Chloride 116.1 mmol/L (98-107) H 09/07/18 02:49 Carbon Dioxide 21 mmol/L (22-30) L 09/07/18 02:49 Anion Gap 17 mmol/L 09/07/18 02:49 BUN 47 mg/dL (9-20) H 09/07/18 02:49 Creatinine 1.2 mg/dL (0.8-1.5) 09/07/18 02:49 Estimated GFR > 60 ml/min 09/07/18 02:49 BUN/Creatinine Ratio 39 % 09/07/18 02:49 Glucose 122 mg/dL (75-100) H 09/07/18 02:49 POC Glucose 120 (70-105) H 09/06/18 13:21 Lactic Acid 1.40 mmol/L (0.7-2.0) 09/06/18 21:58 Calcium 10.0 mg/dL (8.4-10.2) 09/07/18 02:49 Total Bilirubin 1.80 mg/dL (0.1-1.2) H 09/07/18 02:49 Direct Bilirubin < 0.2 mg/dL (0-0.2) 09/03/18 11:26 Indirect Bilirubin 0.3 mg/dL 09/02/18 13:36 AST 83 units/L (5-40) H 09/07/18 02:49 ALT 36 units/L (7-56) 09/07/18 02:49 Alkaline Phosphatase 78 units/L (35-129) 09/07/18 02:49 Ammonia 58.0 umol/L (25-60) 09/06/18 05:10 Total Creatine Kinase 98 units/L (55-170) 09/02/18 13:36 Troponin T 0.018 ng/mL (0.00-0.029) 09/02/18 13:36 C-Reactive Protein 9.00 mg/dL (0.00-1.30) H 09/06/18 21:58 NT-Pro-B Natriuret Pep 873.7 pg/mL (0-900) 09/02/18 13:36 Total Protein 6.7 g/dL (6.3-8.2) 09/07/18 02:49 Albumin 1.8 g/dL (3.9-5) L 09/07/18 02:49 Albumin/Globulin Ratio 0.4 % 09/07/18 02:49 Triglycerides 150 mg/dL (2-149) H 09/03/18 Unknown Cholesterol 116 mg/dL (50-199) 09/03/18 Unknown LDL Cholesterol Direct 69 mg/dL (50-130) 09/03/18 Unknown HDL Cholesterol 21 mg/dL (40-59) L 09/03/18 Unknown Cholesterol/HDL Ratio 5.52 % 09/03/18 Unknown Lipase 81 units/L (13-60) H 09/02/18 13:36 TSH < 0.005 mlU/mL (0.270-4.200) L 09/02/18 16:45 Free T4 2.40 ng/dL (0.76-1.46) H 09/02/18 16:45 Urine Color [place] (Yellow) 09/02/18 14:06 Urine Turbidity Slightly-cloudy (Clear) 09/02/18 14:06 Urine pH 5.0 (5.0-7.0) 09/02/18 14:06 Ur Specific [place] 1.017 (1.003-1.030) 09/02/18 14:06 Urine Protein 30 mg/dl mg/dL (Negative) 09/02/18 14:06 Urine Glucose (UA) Neg mg/dL (Negative) 09/02/18 14:06 Urine Ketones Neg mg/dL (Negative) 09/02/18 14:06 Urine Blood Mod (Negative) 09/02/18 14:06 Urine Nitrite Neg (Negative) 09/02/18 14:06 Urine Bilirubin Neg (Negative) 09/02/18 14:06 Urine Urobilinogen 4.0 mg/dL (<2.0) 09/02/18 14:06 Ur Leukocyte Esterase Neg (Negative) 09/02/18 14:06 Urine WBC (Auto) 3.0 /HPF (0.0-6.0) 09/02/18 14:06 Urine RBC (Auto) 56.0 /HPF (0.0-6.0) 09/02/18 14:06 U Epithel Cells (Auto) < 1.0 /HPF (0-13.0) 09/02/18 14:06 Urine Bacteria (Auto) 1+ /HPF (Negative) 09/02/18 14:06 Urine Mucus Few /HPF 09/02/18 14:06 Salicylates < 0.3 mg/dL (2.8-20.0) L 09/02/18 12:35 Urine Opiates Screen Presumptive negative 09/02/18 13:59 Urine Methadone Screen Presumptive negative 09/02/18 13:59 Acetaminophen < 5.0 ug/mL (10.0-30.0) L 09/02/18 12:35 Ur Barbiturates Screen Presumptive negative 09/02/18 13:59 Ur Phencyclidine Scrn Presumptive negative 09/02/18 13:59 Ur Amphetamines Screen Presumptive negative 09/02/18 13:59 U Benzodiazepines Scrn Presumptive negative 09/02/18 13:59 Urine Cocaine Screen Presumptive negative 09/02/18 13:59 U Marijuana (THC) Screen Presumptive negative 09/02/18 13:59 Drugs of Abuse Note Disclamer 09/02/18 13:59 Plasma/Serum Alcohol < 0.01 % (0-0.07) 09/02/18 12:35 - Imaging and Cardiology Chest x-ray: image reviewed (no acute pathology) Nutrition/Malnutrition Assess - Dietary Evaluation Nutrition/Malnutrition Findings: Nutrition Notes Start: 09/06/18 15:28 Freq: Status: Active Protocol: Document 09/06/18 15:28 RM (Rec: 09/06/18 16:08 [email or web address]) Nutrition Notes Need for Assessment generated from: MD Order Initial or Follow up Assessment Current Diagnosis COPD Sepsis Stroke Other Pertinent Diagnosis nonverbal, aspiration Pneu, encephalopathy, rectal bleed, ETOH use disorder Current Diet NPO Labs/Tests Na 150 Pertinent Medications Lasix Height 5 ft 9 in Weight 99.7 kg [place] Body Weight (kg) 72.72 BMI 32.4 Subjective/Other Information Consulted for TF recommendation and evaluate nutritional intake Received consult for TF recommendation earlier today. Pt transfered from telemetry to ICU and intubated. Received second consult for evaluate nutritional intake. Nurse confirmed that second consult is also for TF recommendation. NG tube in place. Burn Absent Trauma Absent #1 Nutrition Diagnosis Inadequate oral intake Etiology on vent As Evidenced by Signs and Symptoms NPO status Is patient on ventilator? No Is Patient Ambulatory and/or Out of Bed No REE-([facility]-confined to bed) 2108.280 Kcal/Kg value to use for calculation 18 Approximate Energy Requirements Using 1795 kcal/Kg Calculation Used for Recommendations Kcal/kg Additional Notes Protein Needs: 145g (2g/kg,IBW ) Fluid Needs: 1 ml/kcal Nutrition Intervention Nutrition Support: Vital 1.2 at 60 ml/hr. Water flush of 150 mls q 4 hrs until hypernatremia resolves. Water flush of 100 mls q 4 hrs after hypernatremia resolves. Kcal 1,728 Protein (gm) 108 Fluid (mL) 1,168 Goal #1 TF tolerance Goal #2 Meet at least 75% of calorie and protein needs via TF Anticipated Discharge Needs: Unable to determine at this time Follow-Up By: 09/08/18 Additional Comments Follow for TF tolerance
[2018-09-07] MEDS ORDERED: NON-FORMULARY (Tamsulosin 0.4 MG) PO SCH (13:30)
[2018-09-07] MEDS ORDERED: NON-FORMULARY (Hydrochlorothiazide 25 MG) PO SCH (13:30)
[2018-09-07] MEDS ORDERED: SODIUM BICARBONATE FEEDTUBE PRN (14:01)
[2018-09-07] MEDS ORDERED: SIMPLE SYRUP FEEDTUBE PRN ×2 (14:01)
[2018-09-07] MEDS ORDERED: PANCREAZE DR 10,500 UNIT FEEDTUBE PRN (14:01)
--- NOTE | 2018-09-07 14:03 | Progress Note ---
Subjective Date of service: 09/07/18 Principal diagnosis: rectal bleeding Interval history: thanks for neuro consyult based on labs suspect hepatic encephaloapthy plus stroke will check EEG Objective - Vital Sign Vital Signs - 12hr 09/07/18 09/07/18 09/07/18 02:10 02:20 02:30 Temperature Pulse Rate 111 H 115 H 110 H Pulse Rate [ Anterior Bilateral Throughout] Pulse Rate [ From Monitor] Respiratory 30 H 29 H 65 H Rate Respiratory Rate [Anterior Bilateral Throughout] Blood Pressure 130/88 119/81 128/79 O2 Sat by Pulse 92 92 90 Oximetry 09/07/18 09/07/18 09/07/18 02:40 02:50 03:00 Temperature Pulse Rate 112 H 113 H 111 H Pulse Rate [ Anterior Bilateral Throughout] Pulse Rate [ From Monitor] Respiratory 49 H 39 H 63 H Rate Respiratory Rate [Anterior Bilateral Throughout] Blood Pressure 116/88 117/84 128/79 O2 Sat by Pulse 92 99 89 Oximetry 09/07/18 09/07/18 09/07/18 03:10 03:20 03:30 Temperature Pulse Rate 108 H 114 H 113 H Pulse Rate [ Anterior Bilateral Throughout] Pulse Rate [ From Monitor] Respiratory 67 H 62 H 29 H Rate Respiratory Rate [Anterior Bilateral Throughout] Blood Pressure 120/77 125/82 125/82 O2 Sat by Pulse 89 89 93 Oximetry 09/07/18 09/07/18 09/07/18 03:40 03:50 04:00 Temperature 100.1 F H Pulse Rate 128 H 115 H 100 H Pulse Rate [ Anterior Bilateral Throughout] Pulse Rate [ From Monitor] Respiratory 22 62 H 17 Rate Respiratory Rate [Anterior Bilateral Throughout] Blood Pressure 123/90 122/84 122/84 O2 Sat by Pulse 93 90 Oximetry 09/07/18 09/07/18 09/07/18 04:10 04:20 04:30 Temperature Pulse Rate 110 H 113 H 108 H Pulse Rate [ Anterior Bilateral Throughout] Pulse Rate [ From Monitor] Respiratory 20 21 24 Rate Respiratory Rate [Anterior Bilateral Throughout] Blood Pressure 124/76 120/90 110/77 O2 Sat by Pulse 94 92 Oximetry 09/07/18 09/07/18 09/07/18 04:32 04:40 04:50 Temperature Pulse Rate 107 H 106 H Pulse Rate [ Anterior Bilateral Throughout] Pulse Rate [ 112 H From Monitor] Respiratory 28 H 34 H 43 H Rate Respiratory Rate [Anterior Bilateral Throughout] Blood Pressure 109/82 112/80 O2 Sat by Pulse 95 92 Oximetry 09/07/18 09/07/18 09/07/18 05:00 05:10 05:20 Temperature Pulse Rate 107 H 103 H 106 H Pulse Rate [ Anterior Bilateral Throughout] Pulse Rate [ From Monitor] Respiratory 28 H 28 H 27 H Rate Respiratory Rate [Anterior Bilateral Throughout] Blood Pressure 116/68 120/76 117/80 O2 Sat by Pulse 92 97 93 Oximetry 09/07/18 09/07/18 09/07/18 05:30 05:40 05:50 Temperature Pulse Rate 103 H 101 H 103 H Pulse Rate [ Anterior Bilateral Throughout] Pulse Rate [ From Monitor] Respiratory 26 H 22 27 H Rate Respiratory Rate [Anterior Bilateral Throughout] Blood Pressure 111/75 117/82 126/76 O2 Sat by Pulse 91 90 91 Oximetry 09/07/18 09/07/18 09/07/18 06:00 06:10 06:20 Temperature Pulse Rate 107 H 114 H 113 H Pulse Rate [ Anterior Bilateral Throughout] Pulse Rate [ From Monitor] Respiratory 16 13 18 Rate Respiratory Rate [Anterior Bilateral Throughout] Blood Pressure 126/76 131/98 123/105 O2 Sat by Pulse 92 91 90 Oximetry 09/07/18 09/07/18 09/07/18 06:30 06:40 06:50 Temperature Pulse Rate 114 H 113 H 112 H Pulse Rate [ Anterior Bilateral Throughout] Pulse Rate [ From Monitor] Respiratory 16 25 H 28 H Rate Respiratory Rate [Anterior Bilateral Throughout] Blood Pressure 123/105 117/96 135/90 O2 Sat by Pulse 88 91 91 Oximetry 09/07/18 09/07/18 09/07/18 07:00 07:10 07:20 Temperature Pulse Rate 107 H 101 H 111 H Pulse Rate [ Anterior Bilateral Throughout] Pulse Rate [ From Monitor] Respiratory 21 21 18 Rate Respiratory Rate [Anterior Bilateral Throughout] Blood Pressure 142/97 135/77 135/77 O2 Sat by Pulse 91 88 93 Oximetry 09/07/18 09/07/18 09/07/18 07:30 07:40 07:50 Temperature Pulse Rate 110 H 112 H 115 H Pulse Rate [ Anterior Bilateral Throughout] Pulse Rate [ From Monitor] Respiratory 18 18 Rate Respiratory Rate [Anterior Bilateral Throughout] Blood Pressure 145/96 141/92 130/108 O2 Sat by Pulse 87 90 92 Oximetry 09/07/18 09/07/18 09/07/18 07:57 08:00 08:10 Temperature 97.3 F L Pulse Rate 106 H 112 H 106 H Pulse Rate [ 114 H Anterior Bilateral Throughout] Pulse Rate [ From Monitor] Respiratory 22 19 Rate Respiratory 24 Rate [Anterior Bilateral Throughout] Blood Pressure 143/89 143/89 132/81 O2 Sat by Pulse 92 89 87 Oximetry 09/07/18 09/07/18 09/07/18 08:20 08:30 08:40 Temperature Pulse Rate 104 H 101 H 100 H Pulse Rate [ Anterior Bilateral Throughout] Pulse Rate [ From Monitor] Respiratory 19 20 20 Rate Respiratory Rate [Anterior Bilateral Throughout] Blood Pressure 132/81 109/70 111/74 O2 Sat by Pulse 89 95 Oximetry 09/07/18 09/07/18 09/07/18 08:50 09:00 09:10 Temperature Pulse Rate 101 H 99 H 103 H Pulse Rate [ Anterior Bilateral Throughout] Pulse Rate [ From Monitor] Respiratory 20 20 20 Rate Respiratory Rate [Anterior Bilateral Throughout] Blood Pressure 104/76 112/79 106/85 O2 Sat by Pulse 82 L 93 Oximetry 09/07/18 09/07/18 09/07/18 09:20 09:30 09:40 Temperature Pulse Rate 110 H 109 H Pulse Rate [ Anterior Bilateral Throughout] Pulse Rate [ From Monitor] Respiratory 13 19 Rate Respiratory Rate [Anterior Bilateral Throughout] Blood Pressure 109/70 124/103 141/79 O2 Sat by Pulse 97 96 95 Oximetry 09/07/18 09/07/18 09/07/18 09:50 10:00 10:10 Temperature Pulse Rate Pulse Rate [ Anterior Bilateral Throughout] Pulse Rate [ From Monitor] Respiratory Rate Respiratory Rate [Anterior Bilateral Throughout] Blood Pressure 127/81 127/81 138/94 O2 Sat by Pulse 94 97 97 Oximetry 09/07/18 09/07/18 09/07/18 10:20 10:30 10:40 Temperature Pulse Rate 96 H 96 H 96 H Pulse Rate [ Anterior Bilateral Throughout] Pulse Rate [ From Monitor] Respiratory 20 20 21 Rate Respiratory Rate [Anterior Bilateral Throughout] Blood Pressure 138/94 98/74 98/74 O2 Sat by Pulse 92 94 94 Oximetry 09/07/18 09/07/18 09/07/18 10:50 11:00 11:10 Temperature Pulse Rate 96 H 96 H 96 H Pulse Rate [ Anterior Bilateral Throughout] Pulse Rate [ From Monitor] Respiratory 20 21 22 Rate Respiratory Rate [Anterior Bilateral Throughout] Blood Pressure 105/65 113/70 110/74 O2 Sat by Pulse 95 94 94 Oximetry 09/07/18 09/07/18 09/07/18 11:20 11:30 11:40 Temperature Pulse Rate 96 H 96 H 97 H Pulse Rate [ Anterior Bilateral Throughout] Pulse Rate [ From Monitor] Respiratory 21 21 20 Rate Respiratory Rate [Anterior Bilateral Throughout] Blood Pressure 112/80 109/75 104/75 O2 Sat by Pulse 94 95 95 Oximetry 09/07/18 09/07/18 09/07/18 11:50 12:00 13:02 Temperature 98.3 F Pulse Rate 97 H 97 H 101 H Pulse Rate [ Anterior Bilateral Throughout] Pulse Rate [ From Monitor] Respiratory 20 21 Rate Respiratory Rate [Anterior Bilateral Throughout] Blood Pressure 108/75 126/78 O2 Sat by Pulse 95 97 95 Oximetry 09/07/18 13:14 Temperature Pulse Rate Pulse Rate [ 97 H Anterior Bilateral Throughout] Pulse Rate [ From Monitor] Respiratory Rate Respiratory 20 Rate [Anterior Bilateral Throughout] Blood Pressure O2 Sat by Pulse Oximetry - Laboratory Findings CBC and BMP: 09/07/18 02:49 09/07/18 09:17 Abnormal Lab Findings: Abnormal Labs 09/02/18 09/02/18 09/02/18 12:35 12:35 12:35 RBC 6.15 H Hgb 18.7 H Hct 57.7 H MCV RDW 15.5 H Lymph % (Auto) 8.8 L Lymph # 0.9 L Seg Neutrophils % 83.2 H Seg Neutrophils # 8.9 H PT 20.8 H INR 1.74 H D-Dimer 4180.35 H POC ABG pH POC ABG pCO2 POC ABG pO2 Sodium Potassium Chloride Carbon Dioxide BUN Glucose POC Glucose Lactic Acid Calcium Total Bilirubin Direct Bilirubin AST Ammonia C-Reactive Protein Total Protein Albumin Triglycerides HDL Cholesterol Lipase TSH Free T4 Salicylates < 0.3 L Acetaminophen 09/02/18 09/02/18 09/02/18 12:35 12:35 12:35 RBC Hgb Hct MCV RDW Lymph % (Auto) Lymph # Seg Neutrophils % Seg Neutrophils # PT INR D-Dimer POC ABG pH POC ABG pCO2 POC ABG pO2 Sodium Potassium Chloride Carbon Dioxide BUN Glucose POC Glucose 167 H Lactic Acid 3.20 H* Calcium Total Bilirubin Direct Bilirubin AST Ammonia C-Reactive Protein Total Protein Albumin Triglycerides HDL Cholesterol Lipase TSH Free T4 Salicylates Acetaminophen < 5.0 L 09/02/18 09/02/18 09/02/18 13:36 14:40 16:45 RBC Hgb Hct MCV RDW Lymph % (Auto) Lymph # Seg Neutrophils % Seg Neutrophils # PT INR D-Dimer POC ABG pH POC ABG pCO2 POC ABG pO2 Sodium 159 H Potassium Chloride 114.7 H Carbon Dioxide BUN 90 H Glucose 172 H POC Glucose Lactic Acid 2.30 H* Calcium 10.8 H Total Bilirubin Direct Bilirubin 0.3 H AST Ammonia C-Reactive Protein Total Protein Albumin 2.6 L Triglycerides HDL Cholesterol Lipase 81 H TSH < 0.005 L Free T4 2.40 H Salicylates Acetaminophen 09/03/18 09/03/18 09/03/18 11:26 11:26 11:26 RBC Hgb Hct MCV RDW Lymph % (Auto) Lymph # Seg Neutrophils % Seg Neutrophils # PT 21.8 H INR 1.86 H D-Dimer POC ABG pH POC ABG pCO2 POC ABG pO2 Sodium 160 H Potassium Chloride 122.6 H Carbon Dioxide BUN 69 H Glucose 127 H POC Glucose Lactic Acid Calcium Total Bilirubin Direct Bilirubin AST Ammonia C-Reactive Protein Total Protein Albumin 2.1 L Triglycerides HDL Cholesterol Lipase TSH Free T4 Salicylates Acetaminophen 09/03/18 09/03/18 09/03/18 11:26 15:39 20:23 RBC Hgb Hct MCV RDW Lymph % (Auto) Lymph # Seg Neutrophils % Seg Neutrophils # PT INR D-Dimer POC ABG pH POC ABG pCO2 POC ABG pO2 Sodium 160 H 160 H Potassium Chloride Carbon Dioxide BUN Glucose POC Glucose Lactic Acid Calcium Total Bilirubin Direct Bilirubin AST Ammonia 75.0 H C-Reactive Protein Total Protein Albumin Triglycerides HDL Cholesterol Lipase TSH Free T4 Salicylates Acetaminophen 09/03/18 09/04/18 09/04/18 Unknown 02:38 05:20 RBC Hgb Hct MCV RDW Lymph % (Auto) Lymph # Seg Neutrophils % Seg Neutrophils # PT INR D-Dimer POC ABG pH POC ABG pCO2 POC ABG pO2 Sodium 160 H 166 H* Potassium Chloride 129.2 H Carbon Dioxide BUN 57 H Glucose 137 H POC Glucose Lactic Acid Calcium Total Bilirubin Direct Bilirubin AST Ammonia C-Reactive Protein Total Protein 5.8 L Albumin 2.7 L Triglycerides 150 H HDL Cholesterol 21 L Lipase TSH Free T4 Salicylates Acetaminophen 09/04/18 09/04/18 09/04/18 05:20 09:11 13:35 RBC 5.12 H Hgb 15.5 H D 15.6 H Hct 48.0 H D 48.1 H MCV RDW 15.9 H Lymph % (Auto) 11.8 L Lymph # 0.8 L Seg Neutrophils % 80.1 H Seg Neutrophils # PT INR D-Dimer POC ABG pH POC ABG pCO2 POC ABG pO2 Sodium 166 H* Potassium Chloride Carbon Dioxide BUN Glucose POC Glucose Lactic Acid Calcium Total Bilirubin Direct Bilirubin AST Ammonia C-Reactive Protein Total Protein Albumin Triglycerides HDL Cholesterol Lipase TSH Free T4 Salicylates Acetaminophen 09/04/18 09/04/18 09/04/18 13:35 21:04 21:04 RBC Hgb 16.9 H Hct 58.3 H D MCV RDW Lymph % (Auto) Lymph # Seg Neutrophils % Seg Neutrophils # PT INR D-Dimer POC ABG pH POC ABG pCO2 POC ABG pO2 Sodium 164 H* 159 H Potassium Chloride Carbon Dioxide BUN Glucose POC Glucose Lactic Acid Calcium Total Bilirubin Direct Bilirubin AST Ammonia C-Reactive Protein Total Protein Albumin Triglycerides HDL Cholesterol Lipase TSH Free T4 Salicylates Acetaminophen 09/05/18 09/05/18 09/05/18 01:11 02:51 03:17 RBC Hgb Hct MCV RDW Lymph % (Auto) Lymph # Seg Neutrophils % Seg Neutrophils # PT INR D-Dimer POC ABG pH 7.340 L POC ABG pCO2 57.8 H POC ABG pO2 74 L Sodium 152 H Potassium Chloride Carbon Dioxide BUN Glucose POC Glucose 116 H Lactic Acid Calcium Total Bilirubin Direct Bilirubin AST Ammonia C-Reactive Protein Total Protein Albumin Triglycerides HDL Cholesterol Lipase TSH Free T4 Salicylates Acetaminophen 09/05/18 09/05/18 09/05/18 07:45 10:34 15:21 RBC Hgb Hct MCV RDW Lymph % (Auto) Lymph # Seg Neutrophils % Seg Neutrophils # PT INR D-Dimer POC ABG pH POC ABG pCO2 POC ABG pO2 Sodium 156 H 153 H Potassium Chloride Carbon Dioxide BUN Glucose POC Glucose Lactic Acid Calcium Total Bilirubin Direct Bilirubin AST Ammonia 61.0 H C-Reactive Protein Total Protein Albumin Triglycerides HDL Cholesterol Lipase TSH Free T4 Salicylates Acetaminophen 09/06/18 09/06/18 09/06/18 05:10 05:10 08:43 RBC 5.06 H Hgb Hct 47.8 H D MCV RDW 15.3 H Lymph % (Auto) Lymph # Seg Neutrophils % Seg Neutrophils # PT INR D-Dimer POC ABG pH POC ABG pCO2 POC ABG pO2 Sodium 155 H 150 H Potassium Chloride 117.0 H Carbon Dioxide BUN 36 H Glucose 143 H POC Glucose Lactic Acid Calcium Total Bilirubin Direct Bilirubin AST Ammonia C-Reactive Protein Total Protein Albumin Triglycerides HDL Cholesterol Lipase TSH Free T4 Salicylates Acetaminophen 09/06/18 09/06/18 09/06/18 13:21 15:11 16:23 RBC Hgb Hct MCV RDW Lymph % (Auto) Lymph # Seg Neutrophils % Seg Neutrophils # PT INR D-Dimer POC ABG pH POC ABG pCO2 49.1 H POC ABG pO2 107 H Sodium 151 H Potassium Chloride Carbon Dioxide BUN Glucose POC Glucose 120 H Lactic Acid Calcium Total Bilirubin Direct Bilirubin AST Ammonia C-Reactive Protein Total Protein Albumin Triglycerides HDL Cholesterol Lipase TSH Free T4 Salicylates Acetaminophen 09/06/18 09/07/18 09/07/18 21:58 00:25 02:49 RBC 5.32 H Hgb 16.1 H Hct 50.2 H MCV 95 H RDW 15.6 H Lymph % (Auto) Lymph # Seg Neutrophils % Seg Neutrophils # PT INR D-Dimer POC ABG pH POC ABG pCO2 POC ABG pO2 Sodium 150 H Potassium Chloride Carbon Dioxide BUN Glucose POC Glucose Lactic Acid Calcium Total Bilirubin Direct Bilirubin AST Ammonia C-Reactive Protein 9.00 H Total Protein Albumin Triglycerides HDL Cholesterol Lipase TSH Free T4 Salicylates Acetaminophen 09/07/18 09/07/18 09/07/18 02:49 03:43 09:17 RBC Hgb Hct MCV RDW Lymph % (Auto) Lymph # Seg Neutrophils % Seg Neutrophils # PT INR D-Dimer POC ABG pH POC ABG pCO2 46.5 H POC ABG pO2 Sodium 149 H 155 H Potassium 5.2 H D Chloride 116.1 H Carbon Dioxide 21 L BUN 47 H Glucose 122 H POC Glucose Lactic Acid Calcium Total Bilirubin 1.80 H Direct Bilirubin AST 83 H Ammonia C-Reactive Protein Total Protein Albumin 1.8 L Triglycerides HDL Cholesterol Lipase TSH Free T4 Salicylates Acetaminophen
[2018-09-07] MEDS: fentaNYL DRIP Premix 2,000 MCG/100 ML BAG IV SCH (14:30)
[2018-09-07] MEDS: HCTZ PO SCH (15:05)
[2018-09-07] MEDS: WELLBUTRIN SR PO SCH ×2 (15:30→23:43)
[2018-09-07] MEDS: FLOMAX PO SCH (16:33)
--- NOTE | 2018-09-07 17:13 | Progress Note ---
Assessment and Plan - Patient Problems (1) Hypernatremia Current Visit: Yes Status: Acute Plan to address problem: Probably secondary to decreased oral fluid intake. Worsening. Increase free water replacement and follow sodium. (2) Acute kidney injury Current Visit: Yes Status: Acute Plan to address problem: Kidney function and bit worse today. Repeat urinalysis. Follow-up electrolytes and renal function. (3) Encephalopathy Current Visit: Yes Status: Acute Plan to address problem: Toxic/metabolic encephalopathy with cerebrovascular accident. Continue management by primary team (4) Hypercalcemia Current Visit: Yes Status: Acute Plan to address problem: Secondary to volume depletion. Improved with volume repletion Subjective Date of service: 09/07/18 Principal diagnosis: rectal bleeding Interval history: Patient seen lying in bed. Intubated on ventilator. Chart reviewed. Objective - Exam Narrative Exam: Middle-aged male lying in bed intubated on ventilator HEENT: NCAT, pink oral mucous membrane Neck: Supple, no venous distention CVS: S1S2 RRR with no murmur, rub or gallop Chest: Faint rhonchi bilaterally Abdomen: Protuberant, soft, nontender, no organomegaly, bowel sounds are present Extremities: No edema Skin warm and dry Neuro: Intubated on ventilator, sedated - Vital Signs Vital signs: Vital Signs - 12hr 09/07/18 09/07/18 09/07/18 05:10 05:20 05:30 Temperature Pulse Rate 103 H 106 H 103 H Pulse Rate [ Anterior Bilateral Throughout] Respiratory 28 H 27 H 26 H Rate Respiratory Rate [Anterior Bilateral Throughout] Blood Pressure 120/76 117/80 111/75 O2 Sat by Pulse 97 93 91 Oximetry 09/07/18 09/07/18 09/07/18 05:40 05:50 06:00 Temperature Pulse Rate 101 H 103 H 107 H Pulse Rate [ Anterior Bilateral Throughout] Respiratory 22 27 H 16 Rate Respiratory Rate [Anterior Bilateral Throughout] Blood Pressure 117/82 126/76 126/76 O2 Sat by Pulse 90 91 92 Oximetry 09/07/18 09/07/18 09/07/18 06:10 06:20 06:30 Temperature Pulse Rate 114 H 113 H 114 H Pulse Rate [ Anterior Bilateral Throughout] Respiratory 13 18 16 Rate Respiratory Rate [Anterior Bilateral Throughout] Blood Pressure 131/98 123/105 123/105 O2 Sat by Pulse 91 90 88 Oximetry 0109/07/18 09/07/18 06:40 06:50 07:00 Temperature Pulse Rate 113 H 112 H 107 H Pulse Rate [ Anterior Bilateral Throughout] Respiratory 25 H 28 H 21 Rate Respiratory Rate [Anterior Bilateral Throughout] Blood Pressure 117/96 135/90 142/97 O2 Sat by Pulse 91 91 91 Oximetry 09/07/18 09/07/18 09/07/18 07:10 07:20 07:30 Temperature Pulse Rate 101 H 111 H 110 H Pulse Rate [ Anterior Bilateral Throughout] Respiratory 21 18 18 Rate Respiratory Rate [Anterior Bilateral Throughout] Blood Pressure 135/77 135/77 145/96 O2 Sat by Pulse 88 93 87 Oximetry 09/07/18 09/07/18 09/07/18 07:40 07:50 07:57 Temperature Pulse Rate 112 H 115 H 106 H Pulse Rate [ 114 H Anterior Bilateral Throughout] Respiratory 18 Rate Respiratory 24 Rate [Anterior Bilateral Throughout] Blood Pressure 141/92 130/108 143/89 O2 Sat by Pulse 90 92 92 Oximetry 09/07/18 09/07/18 09/07/18 08:00 08:10 08:20 Temperature 97.3 F L Pulse Rate 112 H 106 H 104 H Pulse Rate [ Anterior Bilateral Throughout] Respiratory 22 19 19 Rate Respiratory Rate [Anterior Bilateral Throughout] Blood Pressure 143/89 132/81 132/81 O2 Sat by Pulse 89 87 Oximetry 09/07/18 09/07/18 09/07/18 08:30 08:40 08:50 Temperature Pulse Rate 101 H 100 H 101 H Pulse Rate [ Anterior Bilateral Throughout] Respiratory 20 20 20 Rate Respiratory Rate [Anterior Bilateral Throughout] Blood Pressure 109/70 111/74 104/76 O2 Sat by Pulse 89 95 82 L Oximetry 09/07/18 09/07/18 09/07/18 09:00 09:10 09:20 Temperature Pulse Rate 99 H 103 H 110 H Pulse Rate [ Anterior Bilateral Throughout] Respiratory 20 20 13 Rate Respiratory Rate [Anterior Bilateral Throughout] Blood Pressure 112/79 106/85 109/70 O2 Sat by Pulse 93 97 Oximetry 09/07/18 09/07/18 09/07/18 09:30 09:40 09:50 Temperature Pulse Rate 109 H Pulse Rate [ Anterior Bilateral Throughout] Respiratory 19 Rate Respiratory Rate [Anterior Bilateral Throughout] Blood Pressure 124/103 141/79 127/81 O2 Sat by Pulse 96 95 94 Oximetry 09/07/18 09/07/18 09/07/18 10:00 10:10 10:20 Temperature Pulse Rate 96 H Pulse Rate [ Anterior Bilateral Throughout] Respiratory 20 Rate Respiratory Rate [Anterior Bilateral Throughout] Blood Pressure 127/81 138/94 138/94 O2 Sat by Pulse 97 97 92 Oximetry 09/07/18 09/07/18 09/07/18 10:30 10:40 10:50 Temperature Pulse Rate 96 H 96 H 96 H Pulse Rate [ Anterior Bilateral Throughout] Respiratory 20 21 20 Rate Respiratory Rate [Anterior Bilateral Throughout] Blood Pressure 98/74 98/74 105/65 O2 Sat by Pulse 94 94 95 Oximetry 09/07/18 09/07/18 09/07/18 11:00 11:10 11:20 Temperature Pulse Rate 96 H 96 H 96 H Pulse Rate [ Anterior Bilateral Throughout] Respiratory 21 22 21 Rate Respiratory Rate [Anterior Bilateral Throughout] Blood Pressure 113/70 110/74 112/80 O2 Sat by Pulse 94 94 94 Oximetry 09/07/18 09/07/18 09/07/18 11:30 11:40 11:50 Temperature Pulse Rate 96 H 97 H 97 H Pulse Rate [ Anterior Bilateral Throughout] Respiratory 21 20 20 Rate Respiratory Rate [Anterior Bilateral Throughout] Blood Pressure 109/75 104/75 108/75 O2 Sat by Pulse 95 95 95 Oximetry 09/07/18 09/07/18 09/07/18 12:00 12:10 12:20 Temperature 98.3 F Pulse Rate 97 H 96 H 97 H Pulse Rate [ Anterior Bilateral Throughout] Respiratory 21 21 21 Rate Respiratory Rate [Anterior Bilateral Throughout] Blood Pressure 126/78 126/78 128/77 O2 Sat by Pulse 97 98 97 Oximetry 09/07/18 09/07/18 09/07/18 12:30 12:40 12:50 Temperature Pulse Rate 96 H 96 H 96 H Pulse Rate [ Anterior Bilateral Throughout] Respiratory 21 22 22 Rate Respiratory Rate [Anterior Bilateral Throughout] Blood Pressure 123/79 117/76 126/84 O2 Sat by Pulse 97 96 96 Oximetry 09/07/18 09/07/18 09/07/18 13:00 13:02 13:10 Temperature Pulse Rate 102 H 101 H 102 H Pulse Rate [ Anterior Bilateral Throughout] Respiratory 18 18 Rate Respiratory Rate [Anterior Bilateral Throughout] Blood Pressure 141/81 141/88 134/90 O2 Sat by Pulse 88 95 94 Oximetry 09/07/18 09/07/18 09/07/18 13:14 13:20 13:30 Temperature Pulse Rate 99 H 98 H Pulse Rate [ 97 H Anterior Bilateral Throughout] Respiratory 12 20 Rate Respiratory 20 Rate [Anterior Bilateral Throughout] Blood Pressure 134/90 110/72 O2 Sat by Pulse 98 94 Oximetry 09/07/18 09/07/18 09/07/18 13:40 13:50 14:00 Temperature Pulse Rate 96 H 95 H 98 H Pulse Rate [ Anterior Bilateral Throughout] Respiratory 20 20 20 Rate Respiratory Rate [Anterior Bilateral Throughout] Blood Pressure 113/76 102/72 102/73 O2 Sat by Pulse 96 100 96 Oximetry 09/07/18 09/07/18 09/07/18 14:10 14:20 14:30 Temperature Pulse Rate 94 H 97 H 95 H Pulse Rate [ Anterior Bilateral Throughout] Respiratory 20 20 18 Rate Respiratory Rate [Anterior Bilateral Throughout] Blood Pressure 120/73 120/71 121/78 O2 Sat by Pulse 90 90 92 Oximetry 09/07/18 09/07/18 09/07/18 14:40 14:50 15:00 Temperature Pulse Rate 95 H 94 H 94 H Pulse Rate [ Anterior Bilateral Throughout] Respiratory 20 20 20 Rate Respiratory Rate [Anterior Bilateral Throughout] Blood Pressure 119/75 111/71 106/77 O2 Sat by Pulse 92 91 93 Oximetry 09/07/18 09/07/18 09/07/18 15:10 15:20 15:30 Temperature Pulse Rate 93 H 94 H 93 H Pulse Rate [ Anterior Bilateral Throughout] Respiratory 20 20 20 Rate Respiratory Rate [Anterior Bilateral Throughout] Blood Pressure 111/75 108/75 116/79 O2 Sat by Pulse 93 93 Oximetry 09/07/18 09/07/18 09/07/18 15:40 15:50 16:00 Temperature Pulse Rate 93 H 93 H 94 H Pulse Rate [ Anterior Bilateral Throughout] Respiratory 20 20 20 Rate Respiratory Rate [Anterior Bilateral Throughout] Blood Pressure 122/78 119/78 116/75 O2 Sat by Pulse 94 93 Oximetry 09/07/18 09/07/18 09/07/18 16:10 16:20 16:30 Temperature Pulse Rate 94 H 92 H 91 H Pulse Rate [ Anterior Bilateral Throughout] Respiratory 21 20 20 Rate Respiratory Rate [Anterior Bilateral Throughout] Blood Pressure 117/79 122/79 126/79 O2 Sat by Pulse 93 91 Oximetry 09/07/18 09/07/18 09/07/18 16:39 16:40 16:50 Temperature Pulse Rate 95 H 92 H 93 H Pulse Rate [ Anterior Bilateral Throughout] Respiratory 20 20 Rate Respiratory Rate [Anterior Bilateral Throughout] Blood Pressure 121/86 121/86 119/80 O2 Sat by Pulse 94 93 94 Oximetry - Lab 09/07/18 02:49 09/07/18 16:02 Most recent lab results Calcium 10.0 mg/dL (8.4-10.2) 09/07/18 02:49 Medications & Allergies - Medications Allergies/Adverse Reactions: Allergies No Known Allergies Allergy (Verified 09/02/18 13:48) Home Medications: Home Medications Medication Instructions Recorded Confirmed Last Taken Type Hydrochlorothiazide 25 mg PO DAILY 09/07/18 09/07/18 Unknown History Lisinopril 5 mg PO DAILY 09/07/18 09/07/18 Unknown History Rosuvastatin Calcium 40 mg PO DAILY 09/07/18 09/07/18 Unknown History Tamsulosin 0.4 mg PO DAILY 09/07/18 09/07/18 Unknown History metFORMIN 500 mg PO BID 09/07/18 09/07/18 Unknown History Active Medications: Generic Name Dose Route Start Last Admin Trade Name Freq PRN Reason Stop Dose Admin Acetaminophen 650 mg 09/02/18 15:03 Tylenol PO Q4H PRN Pain, Mild (1-3) Albuterol 2.5 mg 09/06/18 17:35 09/06/18 19:34 Proventil IH 2.5 mg Q4HRT PRN Administration Shortness Of Breath Albuterol/Ipratropium 1 ampul 09/06/18 17:35 09/07/18 13:14 Duoneb *Not For Prn Use* IH 1 ampul Q6HRT ROXY Administration Lipase/Protease/Amylase 1 each 09/07/18 14:01 Lana Winston 10,500 Unit FEEDTUBE PRN PRN For Clogged Feeding Tube Arformoterol Tartrate 15 mcg 09/06/18 20:45 09/07/18 07:56 Brovana Nebu IH 15 mcg Q12HRT ROXY Administration Atorvastatin Calcium 40 mg 09/02/18 22:00 09/06/18 22:18 Lipitor PO 40 mg QHS ROXY Administration Bisacodyl 10 mg 09/02/18 15:03 Dulcolax AL QDAY PRN Constipation Budesonide 0.5 mg 09/07/18 08:00 09/07/18 07:56 Pulmicort IH 0.5 mg Q12HRT ROXY Administration Bupropion HCl 150 mg 09/07/18 14:00 Wellbutrin Sr PO BID ROXY Fentanyl 50 mcg 09/06/18 20:30 09/07/18 07:59 Sublimaze IV 50 mcg Q10MIN PRN Administration ANALGESIA Hydrochlorothiazide 25 mg 09/07/18 15:00 09/07/18 15:05 Hctz PO Not Given QDAY ROXY Hydrocortisone Acetate 1 applic 09/04/18 16:00 09/07/18 11:03 Proctosol-Hc AL Not Given Q8HR [facility] Hydrophilic Ointment 1 applic 09/06/18 15:34 Vaseline Lip Therapy TP Q2H PRN Dry Lips Ceftriaxone Sodium 1 gm in 50 mls @ 100 mls/hr 09/06/18 10:00 09/07/18 11:00 Rocephin/Ns 1 Gm/50 Ml IV 100 mls/hr Q24HR ROXY Administration Protocol Fentanyl Citrate 2,000 mcg in 100 mls @ 4.985 mls/hr 09/06/18 21:00 09/07/18 14:55 Fentanyl Drip Premix IV 2 mcg/kg/hr TITR ROXY 9.97 mls/hr Titration Protocol 1 MCG/KG/HR Propofol 1,000 mg in 100 mls @ 2.991 mls/hr 09/06/18 21:00 09/07/18 14:53 Diprivan 10 Mg/Ml IV 0 mcg/kg/min TITR ROXY 0 mls/hr Titration Protocol 5 MCG/KG/MIN Lactulose 20 gm 09/06/18 12:00 09/07/18 12:10 Cephulac PO 20 gm Q6HR ROXY Administration Magnesium Hydroxide 30 ml 09/02/18 15:03 Milk Of Magnesia PO Q4H PRN Constipation Methylprednisolone Sodium Succinate 60 mg 09/06/18 22:00 09/07/18 14:45 Solu-Medrol IV 60 mg Q8HR ROXY Administration Metoclopramide HCl 10 mg 09/02/18 15:03 Reglan PO Q6H PRN Nausea And Vomiting Multi-Ingred Cream/Lotion/Oil/Oint 1 applic 09/06/18 15:34 Artificial Tears Ophth Oint OU Q4H PRN Dry Eye(s) Ondansetron HCl 4 mg 09/02/18 15:03 Zofran IV Q8H PRN Nausea And Vomiting Pantoprazole Sodium 40 mg 09/06/18 10:00 09/07/18 11:02 Protonix IV 40 mg QDAY ROXY Administration Promethazine HCl 25 mg 09/02/18 15:03 Phenergan AL Q6H PRN Nausea And Vomiting Simple Syrup 15 ml 09/06/18 16:08 Simple Syrup FEEDTUBE PRN PRN Hypoglycemia Simple Syrup 30 ml 09/06/18 16:08 Simple Syrup FEEDTUBE PRN PRN Hypoglycemia Simple Syrup 15 ml 09/07/18 14:01 Simple Syrup FEEDTUBE PRN PRN Hypoglycemia Simple Syrup 30 ml 09/07/18 14:01 Simple Syrup FEEDTUBE PRN PRN Hypoglycemia Sodium Bicarbonate 325 mg 09/06/18 16:08 Sodium Bicarbonate FEEDTUBE PRN PRN For Clogged Feeding Tube Sodium Bicarbonate 325 mg 09/07/18 14:01 Sodium Bicarbonate FEEDTUBE PRN PRN For Clogged Feeding Tube Sodium Chloride 10 ml 09/02/18 15:03 Sodium Chloride Flush Syringe 10 Ml IV PRN PRN LINE FLUSH Tamsulosin HCl 0.4 mg 09/07/18 15:00 Flomax PO QDAY ROXY
[2018-09-07] MEDS: D5W 1,000 ML IV SCH (18:35)
--- NOTE | 2018-09-08 00:09 | Consultation ---
HISTORY OF PRESENT ILLNESS: This is a 68-year-old white male. He was initially admitted to the hospital on 09/02/2018, and when he was initially admitted, he was admitted with history of having possible CVA. In the interval, he has continued to have been experiencing problems with being lethargic, unable to provide a history. Had a prior history of hypoventilation and COPD with confusion. He apparently was found unresponsive with slurred speech. Initial CAT scan showed CVA in the interval since he has continued to be confused, poorly responsive, has had to be intubated. Most recently, his white blood count was elevated at 7100. The blood gases show at this point pO2 of 107, pCO2 of 49. Sodium is 151. His chloride is 116. His potassium is 5.2, BUN is 47, creatinine is 1.2 and it is elevated. He has elevated AST level, elevated bilirubin, and C-reactive protein is 9, albumin very low at 1.8. PHYSICAL EXAMINATION: At this point shows the patient's pupils to be very small, sluggishly reactive, about 3 mm, it is difficult to ascertain, but he has full ocular movements. He does not respond appropriately to me. He has a supple neck. No tremors, no asterixis. The patient is semi-responsive, does not follow simple commands. Neck is supple, however. No tremors, no asterixis. IMPRESSION: This patient probably has metabolic encephalopathy superimposed on a stroke and chronic obstructive pulmonary disease. I noticed his albumin is very low at 1.8, bilirubin is high at 1.80. These seemed to indicate some degree of hepatic encephalopathy, therefore. I will follow the patient with you. We will get an EEG. JOB# [id number] TAMANNA/NTS
[2018-09-08] MEDS: CEPHULAC PO SCH ×4 (00:19→18:18)
[2018-09-08 00:31] LABS: Amorphous Crystals,Urine 3+; Bacteria,Urine 2+ /HPF (Negative); Bilirubin,Urine NEG (Negative); Blood,Urine LG (Negative); Color,Urine Amber (Yellow); Hyaline Casts,Urine 99 /LPF; Mucus,Urine 2+ /HPF
[2018-09-08 00:35] LABS: RBC,Urine > 182.0 /HPF (0.0-6.0)
[2018-09-08] MEDS: fentaNYL DRIP Premix 2,000 MCG/100 ML BAG IV SCH ×2 (00:59→18:19)
[2018-09-08] MEDS: FREE WATER PO SCH ×6 (01:01→22:28)
--- NOTE | 2018-09-08 01:08 | Consultation ---
HISTORY OF PRESENT ILLNESS: This is a 68-year-old male who initially was admitted at [facility] on 09/02/2018. The patient presented to the hospital with an altered mental state. The patient was initially seen with [id number] aphasia, severe dysarthria and also presented with altered, unresponsive state, unresponsive, and had been known to be last well 4 days prior to admission. He presented to the Emergency with slurred speech, elevated temperature, ____ tachycardic. D-dimer was elevated and this patient has subsequently been admitted for further workup for CVA, infection, dehydration ____ showed chronic involutional ischemic changes. DICTATION ENDS HERE JOB# [id number] TAMANNA/DAVID
[2018-09-08] MEDS: DUONEB *Not for PRN Use IH SCH ×4 (02:55→20:27)
--- NOTE | 2018-09-08 03:48 | XRay Report ---
FINAL REPORT EXAM: XR CHEST 1V AP HISTORY: follow up respiratory failure TECHNIQUE: AP portable view of the chest. PRIORS: 09/06/2018 FINDINGS: There is an endotracheal tube in place which appears adequately positioned in the mid to distal trach ea. There is an NG tube in place which courses below the diaphragm and below the lower margin of the film.The cardiomediastinal silhouette appears normal. The lungs are hypo aerated. There is linear par enchymal opacity in the right lung base consistent with subsegmental atelectasis. The bones and soft tissues are unremarkable. IMPRESSION: Mild right basilar subsegmental atelectasis
[2018-09-08 04:49] LABS: Hematocrit 44.6 % (35.5-45.6); Hemoglobin 14.3 gm/dl (11.8-15.2); Mean Corpuscular HGB Conc 32 % (32-34); Mean Corpuscular Volume 95 fl (84-94); Platelet Count 150 K/mm3 (140-440); Red Cell Distribution Width 15.3 % (13.2-15.2)
[2018-09-08 05:06] LABS: Alanine Aminotransferase 33 units/L (7-56); Albumin 2.4 g/dL (3.9-5); BUN/Creatinine Ratio 63; Blood Urea Nitrogen 69 mg/dL (9-20); Calcium 9.6 mg/dL (8.4-10.2); Hemolysis Index 4
[2018-09-08] MEDS: PROCTOSOL-HC PR SCH ×3 (06:09→22:28)
[2018-09-08] MEDS: SOLU-Medrol IV SCH ×3 (06:09→22:26)
--- NOTE | 2018-09-08 07:00 | Progress Note ---
Assessment and Plan - Patient Problems (1) Acute renal failure Current Visit: Yes Status: Acute Plan to address problem: Labs indicate stable clearance. However his UO has not been able to be accurately measured as condom cath has not been able to remain in place. His urine output per nursing staff was ~ 100cc overnight and urine is gerry in color. Concerned that he may be going into ATN. Will need to monitor renal function closely. Have instructed staff to place mares cath today for accurate I/O in this critically ill patient. 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 Management per primary team. (3) Hypernatremia Current Visit: Yes Status: Acute Plan to address problem: Secondary to free water losses in the setting of decreased PO intake, current intubated state. Obtaining free water flushes 300 cc q 4 hours. Serum sodium levels stable. con tinue to monitor. Also D5W at 75 cc/hr was ordered yesterday. (4) Hypercalcemia Current Visit: Yes Status: Acute Plan to address problem: Resolved at this time with volume repletion. Subjective Date of service: 09/08/18 Principal diagnosis: rectal bleeding Interval history: Events overnight noted. Per nursing staff UO seems to be decreasing. Urine is gerry/dark in color. Renal labs noted. Unable to keep condom cath on. Instructed staff for placement of mares for strict I/O. Patient continues with FWF at 300 cc q 4 hrs. On Nepro TF. Objective - Vital Signs Vital signs: Vital Signs - 12hr 09/07/18 09/07/18 09/07/18 19:00 19:10 19:20 Temperature Pulse Rate 92 H 91 H 91 H Pulse Rate [ Anterior Bilateral Throughout] Pulse Rate [ From Monitor] Respiratory 20 20 20 Rate Respiratory Rate [Anterior Bilateral Throughout] Blood Pressure 119/76 118/79 117/79 O2 Sat by Pulse 91 93 Oximetry 09/07/18 09/07/18 09/07/18 19:30 19:40 19:50 Temperature Pulse Rate 91 H 89 90 Pulse Rate [ Anterior Bilateral Throughout] Pulse Rate [ From Monitor] Respiratory 20 19 20 Rate Respiratory Rate [Anterior Bilateral Throughout] Blood Pressure 118/80 113/75 113/76 O2 Sat by Pulse 92 92 92 Oximetry 09/07/18 09/07/18 09/07/18 20:00 20:10 20:20 Temperature 99.3 F Pulse Rate 95 H 89 89 Pulse Rate [ Anterior Bilateral Throughout] Pulse Rate [ From Monitor] Respiratory 20 19 20 Rate Respiratory Rate [Anterior Bilateral Throughout] Blood Pressure 114/75 121/77 119/76 O2 Sat by Pulse 93 92 93 Oximetry 09/07/18 09/07/18 09/07/18 20:25 20:27 20:30 Temperature Pulse Rate 91 H 91 H Pulse Rate [ Anterior Bilateral Throughout] Pulse Rate [ 94 H From Monitor] Respiratory 20 20 Rate Respiratory Rate [Anterior Bilateral Throughout] Blood Pressure 128/81 128/81 O2 Sat by Pulse 94 93 92 Oximetry 09/07/18 09/07/18 09/07/18 20:33 20:46 21:00 Temperature Pulse Rate 90 90 Pulse Rate [ 91 H Anterior Bilateral Throughout] Pulse Rate [ From Monitor] Respiratory 20 20 Rate Respiratory 20 Rate [Anterior Bilateral Throughout] Blood Pressure 117/76 122/78 O2 Sat by Pulse 97 97 Oximetry 09/07/18 09/07/18 09/07/18 21:07 21:16 21:30 Temperature Pulse Rate 92 H 92 H Pulse Rate [ 90 Anterior Bilateral Throughout] Pulse Rate [ From Monitor] Respiratory 20 21 Rate Respiratory 20 Rate [Anterior Bilateral Throughout] Blood Pressure 124/79 120/76 O2 Sat by Pulse 94 92 Oximetry 09/07/18 09/07/18 09/07/18 21:46 22:00 22:16 Temperature Pulse Rate 95 H 95 H 93 H Pulse Rate [ Anterior Bilateral Throughout] Pulse Rate [ From Monitor] Respiratory 20 20 21 Rate Respiratory Rate [Anterior Bilateral Throughout] Blood Pressure 121/86 124/80 125/79 O2 Sat by Pulse 94 94 93 Oximetry 09/07/18 09/07/18 09/07/18 22:30 22:46 23:00 Temperature Pulse Rate 91 H 91 H 91 H Pulse Rate [ Anterior Bilateral Throughout] Pulse Rate [ From Monitor] Respiratory 22 21 20 Rate Respiratory Rate [Anterior Bilateral Throughout] Blood Pressure 125/77 117/75 114/74 O2 Sat by Pulse 94 93 Oximetry 09/07/18 09/07/18 09/07/18 23:16 23:25 23:30 Temperature Pulse Rate 91 H 90 90 Pulse Rate [ Anterior Bilateral Throughout] Pulse Rate [ From Monitor] Respiratory 21 20 Rate Respiratory Rate [Anterior Bilateral Throughout] Blood Pressure 120/80 116/80 114/78 O2 Sat by Pulse 94 94 94 Oximetry 09/07/18 09/07/18 09/08/18 23:46 23:49 00:00 Temperature 100.7 F H Pulse Rate 91 H 92 H 89 Pulse Rate [ Anterior Bilateral Throughout] Pulse Rate [ From Monitor] Respiratory 22 20 20 Rate Respiratory Rate [Anterior Bilateral Throughout] Blood Pressure 122/79 122/79 112/72 O2 Sat by Pulse 95 95 92 Oximetry 09/08/18 09/08/18 09/08/18 00:16 00:23 00:30 Temperature Pulse Rate 88 89 Pulse Rate [ Anterior Bilateral Throughout] Pulse Rate [ 89 From Monitor] Respiratory 20 18 20 Rate Respiratory Rate [Anterior Bilateral Throughout] Blood Pressure 121/78 120/77 O2 Sat by Pulse 96 94 95 Oximetry 09/08/18 09/08/18 09/08/18 00:46 01:00 01:16 Temperature Pulse Rate 89 88 88 Pulse Rate [ Anterior Bilateral Throughout] Pulse Rate [ From Monitor] Respiratory 19 20 20 Rate Respiratory Rate [Anterior Bilateral Throughout] Blood Pressure 114/75 122/82 119/79 O2 Sat by Pulse 95 92 Oximetry 09/08/18 09/08/18 09/08/18 01:30 01:46 02:00 Temperature Pulse Rate 90 91 H 91 H Pulse Rate [ Anterior Bilateral Throughout] Pulse Rate [ From Monitor] Respiratory 20 20 20 Rate Respiratory Rate [Anterior Bilateral Throughout] Blood Pressure 116/71 114/69 114/68 O2 Sat by Pulse 91 93 92 Oximetry 09/08/18 09/08/18 09/08/18 02:16 02:30 02:46 Temperature Pulse Rate 90 90 97 H Pulse Rate [ Anterior Bilateral Throughout] Pulse Rate [ From Monitor] Respiratory 20 20 20 Rate Respiratory Rate [Anterior Bilateral Throughout] Blood Pressure 118/72 99/72 110/77 O2 Sat by Pulse 92 90 93 Oximetry 09/08/18 09/08/18 09/08/18 02:55 03:00 03:16 Temperature Pulse Rate 89 88 Pulse Rate [ 89 Anterior Bilateral Throughout] Pulse Rate [ From Monitor] Respiratory 20 20 Rate Respiratory 20 Rate [Anterior Bilateral Throughout] Blood Pressure 131/83 128/76 O2 Sat by Pulse 92 94 Oximetry 09/08/18 09/08/18 09/08/18 03:30 03:46 03:51 Temperature 99.8 F H Pulse Rate 88 87 89 Pulse Rate [ Anterior Bilateral Throughout] Pulse Rate [ From Monitor] Respiratory 20 20 Rate Respiratory Rate [Anterior Bilateral Throughout] Blood Pressure 121/74 128/74 120/76 O2 Sat by Pulse 93 95 94 Oximetry 09/08/18 09/08/18 09/08/18 04:00 04:16 04:30 Temperature Pulse Rate 87 93 H 90 Pulse Rate [ Anterior Bilateral Throughout] Pulse Rate [ 98 H From Monitor] Respiratory 20 21 20 Rate Respiratory Rate [Anterior Bilateral Throughout] Blood Pressure 128/79 121/74 126/77 O2 Sat by Pulse 92 94 91 Oximetry 09/08/18 09/08/18 09/08/18 04:46 05:00 05:16 Temperature Pulse Rate 88 86 86 Pulse Rate [ Anterior Bilateral Throughout] Pulse Rate [ From Monitor] Respiratory 20 20 20 Rate Respiratory Rate [Anterior Bilateral Throughout] Blood Pressure 128/79 121/78 120/72 O2 Sat by Pulse 93 92 93 Oximetry 09/08/18 09/08/18 09/08/18 05:30 05:46 06:00 Temperature Pulse Rate 89 87 86 Pulse Rate [ Anterior Bilateral Throughout] Pulse Rate [ From Monitor] Respiratory 20 20 20 Rate Respiratory Rate [Anterior Bilateral Throughout] Blood Pressure 119/68 118/79 128/76 O2 Sat by Pulse 93 95 93 Oximetry - General Appearance General appearance: appears stated age, sedated on ventilator, intubated, frail EENT: ATNC, PERRL Neck: no JVD, no thyromegaly Respiratory: Present: Clear to Ascultation Cardiology: regular, S1S2 Gastrointestinal: normal Integumentary: no rash Neurologic: other (sedated on ventilator ) Musculoskeletal: other (-edema ) Psychiatric: other (sedated on ventilator ) - Lab 09/08/18 04:22 09/08/18 04:22 Most recent lab results Calcium 9.6 mg/dL (8.4-10.2) 09/08/18 04:22 - Allied health notes Allied health notes reviewed: nursing Medications & Allergies - Medications Allergies/Adverse Reactions: Allergies No Known Allergies Allergy (Verified 09/02/18 13:48) Home Medications: Home Medications Medication Instructions Recorded Confirmed Last Taken Type Hydrochlorothiazide 25 mg PO DAILY 09/07/18 09/07/18 Unknown History Lisinopril 5 mg PO DAILY 09/07/18 09/07/18 Unknown History Rosuvastatin Calcium 40 mg PO DAILY 09/07/18 09/07/18 Unknown History Tamsulosin 0.4 mg PO DAILY 09/07/18 09/07/18 Unknown History metFORMIN 500 mg PO BID 09/07/18 09/07/18 Unknown History Active Medications: Generic Name Dose Route Start Last Admin Trade Name Freq PRN Reason Stop Dose Admin Acetaminophen 650 mg 09/02/18 15:03 Tylenol PO Q4H PRN Pain, Mild (1-3) Albuterol 2.5 mg 09/06/18 17:35 09/06/18 19:34 Proventil IH 2.5 mg Q4HRT PRN Administration Shortness Of Breath Albuterol/Ipratropium 1 ampul 09/06/18 17:35 09/08/18 02:55 Duoneb *Not For Prn Use* IH 1 ampul Q6HRT ROXY Administration Lipase/Protease/Amylase 1 each 09/07/18 14:01 Pancrefabricio Winston 10,500 Unit FEEDTUBE PRN PRN For Clogged Feeding Tube Arformoterol Tartrate 15 mcg 09/06/18 20:45 09/07/18 20:23 Brovana Nebu IH 15 mcg Q12HRT ROXY Administration Atorvastatin Calcium 40 mg 09/02/18 22:00 09/07/18 23:44 Lipitor PO 40 mg QHS ROXY Administration Bisacodyl 10 mg 09/02/18 15:03 Dulcolax ID QDAY PRN Constipation Budesonide 0.5 mg 09/07/18 08:00 09/07/18 20:23 Pulmicort IH 0.5 mg Q12HRT ROXY Administration Bupropion HCl 150 mg 09/07/18 14:00 09/07/18 23:43 Wellbutrin Sr PO 150 mg BID ROXY Administration Fentanyl 50 mcg 09/06/18 20:30 09/07/18 07:59 Sublimaze IV 50 mcg Q10MIN PRN Administration ANALGESIA Hydrochlorothiazide 25 mg 09/07/18 15:00 09/07/18 15:05 Hctz PO Not Given QDAY ROXY Hydrocortisone Acetate 1 applic 09/04/18 16:00 09/08/18 06:09 Proctosol-Hc ID 1 applic Q8HR ROXY Administration Hydrophilic Ointment 1 applic 09/06/18 15:34 Vaseline Lip Therapy TP Q2H PRN Dry Lips Ceftriaxone Sodium 1 gm in 50 mls @ 100 mls/hr 09/06/18 10:00 09/07/18 11:00 Rocephin/Ns 1 Gm/50 Ml IV 100 mls/hr Q24HR ROXY Administration Protocol Fentanyl Citrate 2,000 mcg in 100 mls @ 4.985 mls/hr 09/06/18 21:00 09/08/18 00:59 Fentanyl Drip Premix IV 1 mcg/kg/hr TITR ROXY 4.985 mls/hr Administration Protocol 1 MCG/KG/HR Propofol 1,000 mg in 100 mls @ 2.991 mls/hr 09/06/18 21:00 09/07/18 14:53 Diprivan 10 Mg/Ml IV 0 mcg/kg/min TITR ROXY 0 mls/hr Titration Protocol 5 MCG/KG/MIN Dextrose 1,000 mls @ 75 mls/hr 09/07/18 18:00 09/07/18 18:35 D5w IV 75 mls/hr DIRECT ROXY Administration Lactulose 20 gm 09/06/18 12:00 09/08/18 06:10 Cephulac PO Not Given Q6HR ROXY Magnesium Hydroxide 30 ml 09/02/18 15:03 Milk Of Magnesia PO Q4H PRN Constipation Methylprednisolone Sodium Succinate 60 mg 09/06/18 22:00 09/08/18 06:09 Solu-Medrol IV 60 mg Q8HR ROXY Administration Metoclopramide HCl 10 mg 09/02/18 15:03 Reglan PO Q6H PRN Nausea And Vomiting Multi-Ingred Cream/Lotion/Oil/Oint 1 applic 09/06/18 15:34 Artificial Tears Ophth Oint OU Q4H PRN Dry Eye(s) Ondansetron HCl 4 mg 09/02/18 15:03 Zofran IV Q8H PRN Nausea And Vomiting Pantoprazole Sodium 40 mg 09/06/18 10:00 09/07/18 11:02 Protonix IV 40 mg QDAY ROXY Administration Promethazine HCl 25 mg 09/02/18 15:03 Phenergan ID Q6H PRN Nausea And Vomiting Simple Syrup 15 ml 09/06/18 16:08 Simple Syrup FEEDTUBE PRN PRN Hypoglycemia Simple Syrup 30 ml 09/06/18 16:08 Simple Syrup FEEDTUBE PRN PRN Hypoglycemia Simple Syrup 15 ml 09/07/18 14:01 Simple Syrup FEEDTUBE PRN PRN Hypoglycemia Simple Syrup 30 ml 09/07/18 14:01 Simple Syrup FEEDTUBE PRN PRN Hypoglycemia Sodium Bicarbonate 325 mg 09/06/18 16:08 Sodium Bicarbonate FEEDTUBE PRN PRN For Clogged Feeding Tube Sodium Bicarbonate 325 mg 09/07/18 14:01 Sodium Bicarbonate FEEDTUBE PRN PRN For Clogged Feeding Tube Sodium Chloride 10 ml 09/02/18 15:03 Sodium Chloride Flush Syringe 10 Ml IV PRN PRN LINE FLUSH Tamsulosin HCl 0.4 mg 09/07/18 15:00 09/07/18 16:33 Flomax PO 0.4 mg QDAY ROXY Administration
[2018-09-08] MEDS: BROVANA NEBU IH SCH ×2 (07:32→19:43)
[2018-09-08] MEDS: PULMICORT IH SCH ×2 (07:32→19:43)
[2018-09-08] MEDS ORDERED: POTASSIUM CHLORIDE FEEDTUBE ONE (09:00)
[2018-09-08] MEDS: HCTZ PO SCH (10:08)
[2018-09-08] MEDS: FLOMAX PO SCH (10:09)
[2018-09-08] MEDS: WELLBUTRIN SR PO SCH ×2 (10:09→22:28)
[2018-09-08] MEDS: PREVACID SOLUTAB FEEDTUBE SCH (10:10)
[2018-09-08] MEDS: ROCEPHIN/NS 1 GM/50 ML 1 GM/50 ML BAG IV SCH (10:11)
[2018-09-08] MEDS: D5W 1,000 ML IV SCH (10:11)
[2018-09-08] MEDS ORDERED: D50W (25GM) Syringe IV PRN (10:58)
--- NOTE | 2018-09-08 12:44 | Progress Note ---
Assessment and Plan Acute hypoxemic respiratory failure, now on mechanical ventilatory support. Acute chronic obstructive pulmonary disease exacerbation. Pneumonia, right lower lobe present at presentation, possibly aspiration. Obesity. Acute encephalopathy. Possible hyperthyroidism. Elevated serum ammonia, now resolved. Elevated D-dimer with a negative pulmonary embolism workup. Coagulopathy. Hyperglycemia. Acute kidney injury, resolved. Hypernatremia - reduce set rate to 12/min - increase Peep to 8 - continue to wean oxygen to keep O2 Sat's > 90% thereafter - begin SBT after 1-2 hours as tolerated - place bite-block as biting ETT - VAP bundle addressed - titrate sedation for RASS 0 to -1 - add low dose seroquel to spare IV sedation - add zithromax to Rocephin for CAP empiric coverage - neurology evaluation ongoing (Follow EEG report) - begin enteral nutrition as tolerated - continue bronchodilators with pulmonary hygiene per RT - daily SBT evaluation - daily SAT's - mobility protocol for pressure ulcer prophylaxis - GI & VTE prophylaxis - glycemic control with SSI for target BG 140 - 180 mg/dL - resume chronic disease medications - continue other care per attending / other consultants ...... re-evaluate in am & prn ... care plan discussed with attending The high probability of a clinically significant, sudden or life threatening deterioration of the [Pulmonary,cardiac & neurologic] system(s) required my full and direct attention, intervention and personal management. The aggregate critical care time was [32] minutes. This time is in addition to time spent performing reported procedures but includes the following: [x] Data Review and interpretation [x] Patient assessment and monitoring of vital signs [x] Documentation Subjective Date of service: 09/08/18 Principal diagnosis: Ac Hypoxemic Resp failure; AE-COPD; Pneumonia (Aspiration); Ac encephalopat Interval history: Patient is seen today for: Acute hypoxemic respiratory failure, now on mechanical ventilatory support; Acute chronic obstructive pulmonary disease exacerbation; Pneumonia, right lower lobe present at presentation, possibly aspiration; Obesity; Acute encephalopathy. Seen and examined at bedside; 24hour events reviewed; nursing and respiratory care staff consulted; no adverse overnight events reported to me; remains on MVS; family visiting; still not following commands and intermittently agitated during sedation vacations; no emesis or overt aspiration Objective Vital Signs - 12hr 01/28/19 01/28/19 01/28/19 00:46 01:00 01:16 Temperature Pulse Rate 89 88 88 Pulse Rate [ Anterior Bilateral Throughout] Pulse Rate [ From Monitor] Respiratory 19 20 20 Rate Respiratory Rate [Anterior Bilateral Throughout] Blood Pressure 114/75 122/82 119/79 O2 Sat by Pulse 95 92 Oximetry 09/08/18 09/08/18 09/08/18 01:30 01:46 02:00 Temperature Pulse Rate 90 91 H 91 H Pulse Rate [ Anterior Bilateral Throughout] Pulse Rate [ From Monitor] Respiratory 20 20 20 Rate Respiratory Rate [Anterior Bilateral Throughout] Blood Pressure 116/71 114/69 114/68 O2 Sat by Pulse 91 93 92 Oximetry 09/08/18 09/08/18 09/08/18 02:16 02:30 02:46 Temperature Pulse Rate 90 90 97 H Pulse Rate [ Anterior Bilateral Throughout] Pulse Rate [ From Monitor] Respiratory 20 20 20 Rate Respiratory Rate [Anterior Bilateral Throughout] Blood Pressure 118/72 99/72 110/77 O2 Sat by Pulse 92 90 93 Oximetry 09/08/18 09/08/18 09/08/18 02:55 03:00 03:16 Temperature Pulse Rate 89 88 Pulse Rate [ 89 Anterior Bilateral Throughout] Pulse Rate [ From Monitor] Respiratory 20 20 Rate Respiratory 20 Rate [Anterior Bilateral Throughout] Blood Pressure 131/83 128/76 O2 Sat by Pulse 92 94 Oximetry 09/08/18 09/08/18 09/08/18 03:30 03:46 03:51 Temperature 99.8 F H Pulse Rate 88 87 89 Pulse Rate [ Anterior Bilateral Throughout] Pulse Rate [ From Monitor] Respiratory 20 20 Rate Respiratory Rate [Anterior Bilateral Throughout] Blood Pressure 121/74 128/74 120/76 O2 Sat by Pulse 93 95 94 Oximetry 09/08/18 09/08/18 09/08/18 04:00 04:16 04:30 Temperature Pulse Rate 87 93 H 90 Pulse Rate [ Anterior Bilateral Throughout] Pulse Rate [ 98 H From Monitor] Respiratory 20 21 20 Rate Respiratory Rate [Anterior Bilateral Throughout] Blood Pressure 128/79 121/74 126/77 O2 Sat by Pulse 92 94 91 Oximetry 09/08/18 09/08/18 09/08/18 04:46 05:00 05:16 Temperature Pulse Rate 88 86 86 Pulse Rate [ Anterior Bilateral Throughout] Pulse Rate [ From Monitor] Respiratory 20 20 20 Rate Respiratory Rate [Anterior Bilateral Throughout] Blood Pressure 128/79 121/78 120/72 O2 Sat by Pulse 93 92 93 Oximetry 09/08/18 09/08/18 09/08/18 05:30 05:46 06:00 Temperature Pulse Rate 89 87 86 Pulse Rate [ Anterior Bilateral Throughout] Pulse Rate [ From Monitor] Respiratory 20 20 20 Rate Respiratory Rate [Anterior Bilateral Throughout] Blood Pressure 119/68 118/79 128/76 O2 Sat by Pulse 93 95 93 Oximetry 09/08/18 09/08/18 09/08/18 06:16 06:30 06:45 Temperature Pulse Rate 88 87 90 Pulse Rate [ Anterior Bilateral Throughout] Pulse Rate [ From Monitor] Respiratory 19 20 20 Rate Respiratory Rate [Anterior Bilateral Throughout] Blood Pressure 134/80 125/80 127/73 O2 Sat by Pulse 90 89 90 Oximetry 09/08/18 09/08/18 09/08/18 07:00 07:16 07:30 Temperature Pulse Rate 88 88 88 Pulse Rate [ Anterior Bilateral Throughout] Pulse Rate [ From Monitor] Respiratory 19 16 19 Rate Respiratory Rate [Anterior Bilateral Throughout] Blood Pressure 124/80 124/80 123/75 O2 Sat by Pulse 89 90 87 Oximetry 09/08/18 09/08/18 09/08/18 07:32 07:35 07:42 Temperature Pulse Rate 90 Pulse Rate [ 99 H 91 H Anterior Bilateral Throughout] Pulse Rate [ From Monitor] Respiratory Rate Respiratory 21 20 Rate [Anterior Bilateral Throughout] Blood Pressure 123/75 O2 Sat by Pulse 93 Oximetry 09/08/18 09/08/18 09/08/18 07:46 07:53 08:00 Temperature 98.9 F Pulse Rate 100 H 89 Pulse Rate [ Anterior Bilateral Throughout] Pulse Rate [ From Monitor] Respiratory 15 18 20 Rate Respiratory Rate [Anterior Bilateral Throughout] Blood Pressure 137/82 117/74 O2 Sat by Pulse 91 95 94 Oximetry 09/08/18 09/08/18 09/08/18 08:16 08:30 08:46 Temperature Pulse Rate 90 86 86 Pulse Rate [ Anterior Bilateral Throughout] Pulse Rate [ From Monitor] Respiratory 20 19 20 Rate Respiratory Rate [Anterior Bilateral Throughout] Blood Pressure 113/75 114/69 105/64 O2 Sat by Pulse 94 91 91 Oximetry 09/08/18 09/08/18 09/08/18 09:00 09:15 09:30 Temperature Pulse Rate 96 H 95 H 97 H Pulse Rate [ Anterior Bilateral Throughout] Pulse Rate [ From Monitor] Respiratory 18 18 23 Rate Respiratory Rate [Anterior Bilateral Throughout] Blood Pressure 108/71 141/97 132/79 O2 Sat by Pulse 90 84 93 Oximetry 09/08/18 09/08/18 09/08/18 09:45 10:00 10:16 Temperature Pulse Rate 95 H 93 H 93 H Pulse Rate [ Anterior Bilateral Throughout] Pulse Rate [ From Monitor] Respiratory 20 20 20 Rate Respiratory Rate [Anterior Bilateral Throughout] Blood Pressure 146/83 123/76 123/71 O2 Sat by Pulse 90 90 Oximetry 09/08/18 09/08/18 09/08/18 10:30 10:46 11:00 Temperature Pulse Rate 93 H 90 90 Pulse Rate [ Anterior Bilateral Throughout] Pulse Rate [ From Monitor] Respiratory 20 20 18 Rate Respiratory Rate [Anterior Bilateral Throughout] Blood Pressure 122/75 138/78 133/81 O2 Sat by Pulse 91 90 89 Oximetry 09/08/18 09/08/18 09/08/18 11:16 11:30 11:44 Temperature Pulse Rate 90 90 92 H Pulse Rate [ Anterior Bilateral Throughout] Pulse Rate [ From Monitor] Respiratory 20 21 Rate Respiratory Rate [Anterior Bilateral Throughout] Blood Pressure 121/76 118/75 120/73 O2 Sat by Pulse 90 90 94 Oximetry 09/08/18 09/08/18 09/08/18 11:46 12:00 12:16 Temperature Pulse Rate 89 89 87 Pulse Rate [ Anterior Bilateral Throughout] Pulse Rate [ From Monitor] Respiratory 19 20 20 Rate Respiratory Rate [Anterior Bilateral Throughout] Blood Pressure 120/73 119/71 116/72 O2 Sat by Pulse 90 94 94 Oximetry 09/08/18 09/08/18 12:25 12:30 Temperature Pulse Rate 87 Pulse Rate [ Anterior Bilateral Throughout] Pulse Rate [ From Monitor] Respiratory 20 20 Rate Respiratory Rate [Anterior Bilateral Throughout] Blood Pressure 123/74 O2 Sat by Pulse 96 93 Oximetry Constitutional: appears uncomfortable, other (elderly looking CM, normocephalica nd atraumatic with mildly increased resp effort on MVS) Eyes: non-icteric ENT: oropharynx moist, other (ETT 23 cm SHADIA) Neck: supple, no lymphadenopathy, no JVD, other (large neck circumference) Effort: mildly labored Ascultation: Bilateral: diminished breath sounds, rhonchi Percussion: Bilateral: not dull Cardiovascular: regular rate and rhythm Gastrointestinal: normoactive bowel sounds, soft, non-tender, non-distended Integumentary: normal Extremities: no cyanosis, no edema, pink and warm, pulses normal Neurologic: non-focal exam, pupils equal and round, motor strength normal and, other (encephalopathic) Psychiatric: other (unable to assess) CBC and BMP: 09/08/18 04:22 09/08/18 08:40 ABG, PT/INR, D-dimer: ABG POC ABG pH 7.359 (7.35-7.45) 09/08/18 04:46 POC ABG pCO2 55.3 (35-45) H 09/08/18 04:46 POC ABG pO2 77 (80-105) L 09/08/18 04:46 POC ABG HCO3 31.2 09/08/18 04:46 POC ABG Total CO2 33 09/08/18 04:46 POC ABG O2 Sat 94 09/08/18 04:46 PT/INR, D-dimer PT 21.8 Sec. (12.2-14.9) H 09/03/18 11:26 INR 1.86 (0.87-1.13) H 09/03/18 11:26 D-Dimer 4180.35 ng/mlDDU (0-234) H 09/02/18 12:35 Abnormal lab findings: Abnormal Labs 09/02/18 09/02/18 09/02/18 12:35 12:35 12:35 RBC 6.15 H Hgb 18.7 H Hct 57.7 H MCV RDW 15.5 H Lymph % (Auto) 8.8 L Lymph # 0.9 L Seg Neutrophils % 83.2 H Seg Neutrophils # 8.9 H PT 20.8 H INR 1.74 H D-Dimer 4180.35 H POC ABG pH POC ABG pCO2 POC ABG pO2 Sodium Potassium Chloride Carbon Dioxide BUN Glucose POC Glucose Lactic Acid Calcium Total Bilirubin Direct Bilirubin AST Ammonia C-Reactive Protein Total Protein Albumin Triglycerides HDL Cholesterol Lipase TSH Free T4 Urine WBC (Auto) Salicylates < 0.3 L Acetaminophen 09/02/18 09/02/18 09/02/18 12:35 12:35 12:35 RBC Hgb Hct MCV RDW Lymph % (Auto) Lymph # Seg Neutrophils % Seg Neutrophils # PT INR D-Dimer POC ABG pH POC ABG pCO2 POC ABG pO2 Sodium Potassium Chloride Carbon Dioxide BUN Glucose POC Glucose 167 H Lactic Acid 3.20 H* Calcium Total Bilirubin Direct Bilirubin AST Ammonia C-Reactive Protein Total Protein Albumin Triglycerides HDL Cholesterol Lipase TSH Free T4 Urine WBC (Auto) Salicylates Acetaminophen < 5.0 L 09/02/18 09/02/18 09/02/18 13:36 14:40 16:45 RBC Hgb Hct MCV RDW Lymph % (Auto) Lymph # Seg Neutrophils % Seg Neutrophils # PT INR D-Dimer POC ABG pH POC ABG pCO2 POC ABG pO2 Sodium 159 H Potassium Chloride 114.7 H Carbon Dioxide BUN 90 H Glucose 172 H POC Glucose Lactic Acid 2.30 H* Calcium 10.8 H Total Bilirubin Direct Bilirubin 0.3 H AST Ammonia C-Reactive Protein Total Protein Albumin 2.6 L Triglycerides HDL Cholesterol Lipase 81 H TSH < 0.005 L Free T4 2.40 H Urine WBC (Auto) Salicylates Acetaminophen 09/03/18 09/03/18 09/03/18 11:26 11:26 11:26 RBC Hgb Hct MCV RDW Lymph % (Auto) Lymph # Seg Neutrophils % Seg Neutrophils # PT 21.8 H INR 1.86 H D-Dimer POC ABG pH POC ABG pCO2 POC ABG pO2 Sodium 160 H Potassium Chloride 122.6 H Carbon Dioxide BUN 69 H Glucose 127 H POC Glucose Lactic Acid Calcium Total Bilirubin Direct Bilirubin AST Ammonia C-Reactive Protein Total Protein Albumin 2.1 L Triglycerides HDL Cholesterol Lipase TSH Free T4 Urine WBC (Auto) Salicylates Acetaminophen 09/03/18 09/03/18 09/03/18 11:26 15:39 20:23 RBC Hgb Hct MCV RDW Lymph % (Auto) Lymph # Seg Neutrophils % Seg Neutrophils # PT INR D-Dimer POC ABG pH POC ABG pCO2 POC ABG pO2 Sodium 160 H 160 H Potassium Chloride Carbon Dioxide BUN Glucose POC Glucose Lactic Acid Calcium Total Bilirubin Direct Bilirubin AST Ammonia 75.0 H C-Reactive Protein Total Protein Albumin Triglycerides HDL Cholesterol Lipase TSH Free T4 Urine WBC (Auto) Salicylates Acetaminophen 09/03/18 09/04/18 09/04/18 Unknown 02:38 05:20 RBC Hgb Hct MCV RDW Lymph % (Auto) Lymph # Seg Neutrophils % Seg Neutrophils # PT INR D-Dimer POC ABG pH POC ABG pCO2 POC ABG pO2 Sodium 160 H 166 H* Potassium Chloride 129.2 H Carbon Dioxide BUN 57 H Glucose 137 H POC Glucose Lactic Acid Calcium Total Bilirubin Direct Bilirubin AST Ammonia C-Reactive Protein Total Protein 5.8 L Albumin 2.7 L Triglycerides 150 H HDL Cholesterol 21 L Lipase TSH Free T4 Urine WBC (Auto) Salicylates Acetaminophen 09/04/18 09/04/18 09/04/18 05:20 09:11 13:35 RBC 5.12 H Hgb 15.5 H D 15.6 H Hct 48.0 H D 48.1 H MCV RDW 15.9 H Lymph % (Auto) 11.8 L Lymph # 0.8 L Seg Neutrophils % 80.1 H Seg Neutrophils # PT INR D-Dimer POC ABG pH POC ABG pCO2 POC ABG pO2 Sodium 166 H* Potassium Chloride Carbon Dioxide BUN Glucose POC Glucose Lactic Acid Calcium Total Bilirubin Direct Bilirubin AST Ammonia C-Reactive Protein Total Protein Albumin Triglycerides HDL Cholesterol Lipase TSH Free T4 Urine WBC (Auto) Salicylates Acetaminophen 09/04/18 09/04/18 09/04/18 13:35 21:04 21:04 RBC Hgb 16.9 H Hct 58.3 H D MCV RDW Lymph % (Auto) Lymph # Seg Neutrophils % Seg Neutrophils # PT INR D-Dimer POC ABG pH POC ABG pCO2 POC ABG pO2 Sodium 164 H* 159 H Potassium Chloride Carbon Dioxide BUN Glucose POC Glucose Lactic Acid Calcium Total Bilirubin Direct Bilirubin AST Ammonia C-Reactive Protein Total Protein Albumin Triglycerides HDL Cholesterol Lipase TSH Free T4 Urine WBC (Auto) Salicylates Acetaminophen 09/05/18 09/05/18 09/05/18 01:11 02:51 03:17 RBC Hgb Hct MCV RDW Lymph % (Auto) Lymph # Seg Neutrophils % Seg Neutrophils # PT INR D-Dimer POC ABG pH 7.340 L POC ABG pCO2 57.8 H POC ABG pO2 74 L Sodium 152 H Potassium Chloride Carbon Dioxide BUN Glucose POC Glucose 116 H Lactic Acid Calcium Total Bilirubin Direct Bilirubin AST Ammonia C-Reactive Protein Total Protein Albumin Triglycerides HDL Cholesterol Lipase TSH Free T4 Urine WBC (Auto) Salicylates Acetaminophen 09/05/18 09/05/18 09/05/18 07:45 10:34 15:21 RBC Hgb Hct MCV RDW Lymph % (Auto) Lymph # Seg Neutrophils % Seg Neutrophils # PT INR D-Dimer POC ABG pH POC ABG pCO2 POC ABG pO2 Sodium 156 H 153 H Potassium Chloride Carbon Dioxide BUN Glucose POC Glucose Lactic Acid Calcium Total Bilirubin Direct Bilirubin AST Ammonia 61.0 H C-Reactive Protein Total Protein Albumin Triglycerides HDL Cholesterol Lipase TSH Free T4 Urine WBC (Auto) Salicylates Acetaminophen 09/06/18 09/06/18 09/06/18 05:10 05:10 08:43 RBC 5.06 H Hgb Hct 47.8 H D MCV RDW 15.3 H Lymph % (Auto) Lymph # Seg Neutrophils % Seg Neutrophils # PT INR D-Dimer POC ABG pH POC ABG pCO2 POC ABG pO2 Sodium 155 H 150 H Potassium Chloride 117.0 H Carbon Dioxide BUN 36 H Glucose 143 H POC Glucose Lactic Acid Calcium Total Bilirubin Direct Bilirubin AST Ammonia C-Reactive Protein Total Protein Albumin Triglycerides HDL Cholesterol Lipase TSH Free T4 Urine WBC (Auto) Salicylates Acetaminophen 09/06/18 09/06/18 09/06/18 13:21 15:11 16:23 RBC Hgb Hct MCV RDW Lymph % (Auto) Lymph # Seg Neutrophils % Seg Neutrophils # PT INR D-Dimer POC ABG pH POC ABG pCO2 49.1 H POC ABG pO2 107 H Sodium 151 H Potassium Chloride Carbon Dioxide BUN Glucose POC Glucose 120 H Lactic Acid Calcium Total Bilirubin Direct Bilirubin AST Ammonia C-Reactive Protein Total Protein Albumin Triglycerides HDL Cholesterol Lipase TSH Free T4 Urine WBC (Auto) Salicylates Acetaminophen 09/06/18 09/07/18 09/07/18 21:58 00:25 02:49 RBC 5.32 H Hgb 16.1 H Hct 50.2 H MCV 95 H RDW 15.6 H Lymph % (Auto) Lymph # Seg Neutrophils % Seg Neutrophils # PT INR D-Dimer POC ABG pH POC ABG pCO2 POC ABG pO2 Sodium 150 H Potassium Chloride Carbon Dioxide BUN Glucose POC Glucose Lactic Acid Calcium Total Bilirubin Direct Bilirubin AST Ammonia C-Reactive Protein 9.00 H Total Protein Albumin Triglycerides HDL Cholesterol Lipase TSH Free T4 Urine WBC (Auto) Salicylates Acetaminophen 09/07/18 09/07/18 09/07/18 02:49 03:43 09:17 RBC Hgb Hct MCV RDW Lymph % (Auto) Lymph # Seg Neutrophils % Seg Neutrophils # PT INR D-Dimer POC ABG pH POC ABG pCO2 46.5 H POC ABG pO2 Sodium 149 H 155 H Potassium 5.2 H D Chloride 116.1 H Carbon Dioxide 21 L BUN 47 H Glucose 122 H POC Glucose Lactic Acid Calcium Total Bilirubin 1.80 H Direct Bilirubin AST 83 H Ammonia C-Reactive Protein Total Protein Albumin 1.8 L Triglycerides HDL Cholesterol Lipase TSH Free T4 Urine WBC (Auto) Salicylates Acetaminophen 09/07/18 09/08/18 09/08/18 16:02 00:14 00:51 RBC Hgb Hct MCV RDW Lymph % (Auto) Lymph # Seg Neutrophils % Seg Neutrophils # PT INR D-Dimer POC ABG pH POC ABG pCO2 POC ABG pO2 Sodium 156 H 154 H Potassium Chloride Carbon Dioxide BUN Glucose POC Glucose Lactic Acid Calcium Total Bilirubin Direct Bilirubin AST Ammonia C-Reactive Protein Total Protein Albumin Triglycerides HDL Cholesterol Lipase TSH Free T4 Urine WBC (Auto) 41.0 H Salicylates Acetaminophen 09/08/18 09/08/18 09/08/18 04:22 04:22 04:46 RBC Hgb Hct MCV 95 H RDW 15.3 H Lymph % (Auto) Lymph # Seg Neutrophils % Seg Neutrophils # PT INR D-Dimer POC ABG pH POC ABG pCO2 55.3 H POC ABG pO2 77 L Sodium 153 H Potassium 3.5 L D Chloride 114.8 H Carbon Dioxide BUN 69 H Glucose 277 H POC Glucose Lactic Acid Calcium Total Bilirubin Direct Bilirubin AST 44 H Ammonia C-Reactive Protein Total Protein 5.6 L Albumin 2.4 L Triglycerides HDL Cholesterol Lipase TSH Free T4 Urine WBC (Auto) Salicylates Acetaminophen 09/08/18 09/08/18 08:40 12:03 RBC Hgb Hct MCV RDW Lymph % (Auto) Lymph # Seg Neutrophils % Seg Neutrophils # PT INR D-Dimer POC ABG pH POC ABG pCO2 POC ABG pO2 Sodium 154 H Potassium Chloride Carbon Dioxide BUN Glucose POC Glucose 186 H Lactic Acid Calcium Total Bilirubin Direct Bilirubin AST Ammonia C-Reactive Protein Total Protein Albumin Triglycerides HDL Cholesterol Lipase TSH Free T4 Urine WBC (Auto) Salicylates Acetaminophen Chest x-ray: image reviewed (ETT in good position; RLL faint infiltrate) Allied health notes reviewed: nursing
[2018-09-08] MEDS: HumaLOG SUB-Q SCH ×2 (14:01→18:18)
[2018-09-08] MEDS: ZITHROMAX PO SCH (16:16)
[2018-09-08] MEDS: LOVENOX SUB-Q SCH (16:20)
--- NOTE | 2018-09-08 17:18 | Progress Note ---
Assessment and Plan Assessment and plan: 68 YO Male with Obesity Hypoventilation, COPD presents to ED for evaluation. Pt is confused, lethargic and unable to provide history. Pt history provided by his brother who is at bedside during exam and interview. As per brother, the patient has not returned phone calls over the past 4 days. As a result, the brother went to the home but the patient did not answer the door. Law Enforcement notified, and entry into the home was obtained. The patient was found down and covered in his own feces. Pt exhibited slurred speech, confusion. EMS notified and upon arrival, the patient was found to have a neurologic deficit. A code stroke was called, and the patient was transported to [facility]. Pt seen and evaluated in ED and found to have evidence of CVA as well as SIRS, Acidosis, and Encephalopathy. Pt admitted to telemetry and initiated on CVA protocol. He was intubated with concern for aspiration. Neurology consulted. Acute Metabolic encephalopathy Acute Hypoxic Respiratory failure Hypernatremia Rectal Bleed. Aspiration Pneumonia Obesity Hypoventilation syndrome ETOH use disorder hYPOTHYRODISIM Moderate Protien calorie Malnutrition Secondary Coagulopathy ?UNDERLYING LIVER DISEASE VS IATROGENIC MEDICATION Sepsis Tobacco use disorder per hx Plan Continue supportive care, s/p Intubation yesterday. Continue aspiration precautions Manager Heart Failure input appreciated Family updated Home meds reviewed, Nurse to input in system Continue free water and lactulos Nephrology consult to assist Discontinue ASA. NO CVA and now with rectal bleed. Seizure precautions Continue Empiric abx Aspiration precautions DVT/GI prophy Call placed to family to obtain more clinical information Still awaiting home meds Requested records from [place] still pending. Discussed with Nursing staff The high probability of a clinically significant, sudden or life threatening deterioration of the [pulmonary, last sorter] system(s) required my full and direct attention, intervention and personal management. The aggregate critical care time was [45] minutes. This time is in addition to time spent performing reported procedures but includes the following: [x] Data Review and interpretation [x] Patient assessment and monitoring of vital signs [x] Documentation [x] Medication orders and management History Interval history: Patient seen and examined, remains intubated, sedated Hospitalist Physical - Physical exam Narrative exam: General appearance: Present: mild distress, obese, remains in restraints - EENT Eyes: Present: PERRL, EOM intact. ETT in place ENT: poor dentition - Neck Neck: Present: supple, normal ROM - Respiratory Respiratory effort: labored, improved Respiratory: bilateral: Ronchi - Cardiovascular Rhythm: regular Heart Sounds: Present: S1 & S2. Absent: systolic murmur - Extremities Extremities: no ischemia, pulses intact, pulses symmetrical, No edema, normal temperature, normal color, Full ROM Peripheral Pulses: within normal limits - Abdominal General gastrointestinal: soft, non-tender, non-distended - Integumentary Integumentary: Present: clear, warm- Hemorrhoids - Psychiatric Psychiatric: Confused - Neurologic Neurologic: CNII-XII intact, moves all extremities, confused - Allied Health Allied health notes reviewed: nursing - Constitutional Vitals: Temp Pulse Resp BP Pulse Ox 100 F H 97 H 14 111/65 96 09/08/18 14:50 09/08/18 14:02 09/08/18 14:02 09/08/18 14:00 09/08/18 14:00 General appearance: Present: mild distress, obese, disheveled Results - Labs CBC & Chem 7: 09/08/18 04:22 09/08/18 15:43 Labs: Laboratory Last Values WBC 6.8 K/mm3 (4.5-11.0) 09/08/18 04:22 RBC 4.70 M/mm3 (3.65-5.03) 09/08/18 04:22 Hgb 14.3 gm/dl (11.8-15.2) 09/08/18 04:22 Hct 44.6 % (35.5-45.6) 09/08/18 04:22 MCV 95 fl (84-94) H 09/08/18 04:22 MCH 30 pg (28-32) 09/08/18 04:22 MCHC 32 % (32-34) 09/08/18 04:22 RDW 15.3 % (13.2-15.2) H 09/08/18 04:22 Plt Count 150 K/mm3 (140-440) 09/08/18 04:22 Lymph % (Auto) 11.8 % (13.4-35.0) L 09/04/18 05:20 [place] % (Auto) 6.8 % (0.0-7.3) 09/04/18 05:20 Eos % (Auto) 1.0 % (0.0-4.3) 09/04/18 05:20 Baso % (Auto) 0.3 % (0.0-1.8) 09/04/18 05:20 Lymph # 0.8 K/mm3 (1.2-5.4) L 09/04/18 05:20 [place] # 0.5 K/mm3 (0.0-0.8) 09/04/18 05:20 Eos # 0.1 K/mm3 (0.0-0.4) 09/04/18 05:20 Baso # 0.0 K/mm3 (0.0-0.1) 09/04/18 05:20 Seg Neutrophils % 80.1 % (40.0-70.0) H 09/04/18 05:20 Seg Neutrophils # 5.5 K/mm3 (1.8-7.7) 09/04/18 05:20 PT 21.8 Sec. (12.2-14.9) H 09/03/18 11:26 INR 1.86 (0.87-1.13) H 09/03/18 11:26 APTT 32.5 Sec. (24.2-36.6) 09/02/18 12:35 D-Dimer 4180.35 ng/mlDDU (0-234) H 09/02/18 12:35 POC ABG pH 7.359 (7.35-7.45) 09/08/18 04:46 POC ABG pCO2 55.3 (35-45) H 09/08/18 04:46 POC ABG pO2 77 (80-105) L 09/08/18 04:46 POC ABG HCO3 31.2 09/08/18 04:46 POC ABG Total CO2 33 09/08/18 04:46 POC ABG O2 Sat 94 09/08/18 04:46 POC ABG Base Excess 6 09/08/18 04:46 FiO2 45 % 09/08/18 04:46 Sodium 152 mmol/L (137-145) H 09/08/18 15:43 Potassium 3.5 mmol/L (3.6-5.0) L D 09/08/18 04:22 Chloride 114.8 mmol/L (98-107) H 09/08/18 04:22 Carbon Dioxide 30 mmol/L (22-30) D 09/08/18 04:22 Anion Gap 12 mmol/L 09/08/18 04:22 BUN 69 mg/dL (9-20) H 09/08/18 04:22 Creatinine 1.1 mg/dL (0.8-1.5) 09/08/18 04:22 Estimated GFR > 60 ml/min 09/08/18 04:22 BUN/Creatinine Ratio 63 % 09/08/18 04:22 Glucose 277 mg/dL (75-100) H 09/08/18 04:22 POC Glucose 186 (70-105) H 09/08/18 12:03 Lactic Acid 1.40 mmol/L (0.7-2.0) 09/06/18 21:58 Calcium 9.6 mg/dL (8.4-10.2) 09/08/18 04:22 Total Bilirubin 0.70 mg/dL (0.1-1.2) 09/08/18 04:22 Direct Bilirubin < 0.2 mg/dL (0-0.2) 09/03/18 11:26 Indirect Bilirubin 0.3 mg/dL 09/02/18 13:36 AST 44 units/L (5-40) H 09/08/18 04:22 ALT 33 units/L (7-56) 09/08/18 04:22 Alkaline Phosphatase 80 units/L (35-129) 09/08/18 04:22 Ammonia 58.0 umol/L (25-60) 09/06/18 05:10 Total Creatine Kinase 98 units/L (55-170) 09/02/18 13:36 Troponin T 0.018 ng/mL (0.00-0.029) 09/02/18 13:36 C-Reactive Protein 9.00 mg/dL (0.00-1.30) H 09/06/18 21:58 NT-Pro-B Natriuret Pep 873.7 pg/mL (0-900) 09/02/18 13:36 Total Protein 5.6 g/dL (6.3-8.2) L 09/08/18 04:22 Albumin 2.4 g/dL (3.9-5) L 09/08/18 04:22 Albumin/Globulin Ratio 0.8 % 09/08/18 04:22 Triglycerides 150 mg/dL (2-149) H 09/03/18 Unknown Cholesterol 116 mg/dL (50-199) 09/03/18 Unknown LDL Cholesterol Direct 69 mg/dL (50-130) 09/03/18 Unknown HDL Cholesterol 21 mg/dL (40-59) L 09/03/18 Unknown Cholesterol/HDL Ratio 5.52 % 09/03/18 Unknown Lipase 81 units/L (13-60) H 09/02/18 13:36 TSH < 0.005 mlU/mL (0.270-4.200) L 09/02/18 16:45 Free T4 2.40 ng/dL (0.76-1.46) H 09/02/18 16:45 Urine Color [place] (Yellow) 09/08/18 00:14 Urine Turbidity Cloudy (Clear) 09/08/18 00:14 Urine pH 5.0 (5.0-7.0) 09/08/18 00:14 Ur Specific [place] 1.019 (1.003-1.030) 09/08/18 00:14 Urine Protein 30 mg/dl mg/dL (Negative) 09/08/18 00:14 Urine Glucose (UA) Neg mg/dL (Negative) 09/08/18 00:14 Urine Ketones Neg mg/dL (Negative) 09/08/18 00:14 Urine Blood Lg (Negative) 09/08/18 00:14 Urine Nitrite Neg (Negative) 09/08/18 00:14 Urine Bilirubin Neg (Negative) 09/08/18 00:14 Urine Urobilinogen 4.0 mg/dL (<2.0) 09/08/18 00:14 Ur Leukocyte Esterase Neg (Negative) 09/08/18 00:14 Urine WBC (Auto) 41.0 /HPF (0.0-6.0) H 09/08/18 00:14 Urine RBC (Auto) > 182.0 /HPF (0.0-6.0) 09/08/18 00:14 U Epithel Cells (Auto) 8.0 /HPF (0-13.0) 09/08/18 00:14 Urine Bacteria (Auto) 2+ /HPF (Negative) 09/08/18 00:14 Ur Transition Epith Cell 1 /HPF 09/08/18 00:14 Amorphous Crystals 3+ 09/08/18 00:14 Hyaline Casts 99 /LPF 09/08/18 00:14 Urine Mucus 2+ /HPF 09/08/18 00:14 Salicylates < 0.3 mg/dL (2.8-20.0) L 09/02/18 12:35 Urine Opiates Screen Presumptive negative 09/02/18 13:59 Urine Methadone Screen Presumptive negative 09/02/18 13:59 Acetaminophen < 5.0 ug/mL (10.0-30.0) L 09/02/18 12:35 Ur Barbiturates Screen Presumptive negative 09/02/18 13:59 Ur Phencyclidine Scrn Presumptive negative 09/02/18 13:59 Ur Amphetamines Screen Presumptive negative 09/02/18 13:59 U Benzodiazepines Scrn Presumptive negative 09/02/18 13:59 Urine Cocaine Screen Presumptive negative 09/02/18 13:59 U Marijuana (THC) Screen Presumptive negative 09/02/18 13:59 Drugs of Abuse Note Disclamer 09/02/18 13:59 Plasma/Serum Alcohol < 0.01 % (0-0.07) 09/02/18 12:35 Nutrition/Malnutrition Assess - Dietary Evaluation Nutrition/Malnutrition Findings: Nutrition Notes Start: 09/06/18 15:28 Freq: Status: Active Protocol: Document 09/08/18 13:36 PROSPER (Rec: 09/08/18 13:43 NEROHIT [id number] [email or web address]) Nutrition Notes Initial or Follow up Reassessment Current Diagnosis Sepsis Respiratory Failure Stroke Current Diet TF - Nepro at 50ml/hr Labs/Tests Na 153 K 3.5 BUN 69 BG 277 Pertinent Medications 40mEq KCl x 1 dose Height 5 ft 9 in Weight 93.2 kg [place] Body Weight (kg) 72.72 BMI 30.3 Weight change and time frame Current wt obtained from bed scale Subjective/Other Information TF infusing at 40ml/hr. Pt tolerating TF, per RN report. Rate to be advanced to goal. Pt receiving 300ml water flush q4h per MD order. Percent of energy/protein needs met: 85% energy 54% pro Burn Absent Trauma Absent #1 Nutrition Diagnosis Inadequate oral intake Diagnosis Progress(for reassessment Continues documentation) Is patient on ventilator? Yes Is Patient Ambulatory and/or Out of Bed No REE-([place] Jeor-confined to bed) [phone] Additional Notes Pro needs 2g/kg IBW: 145g/day Fluid needs 1ml/kcal Nutrition Intervention Nutrition Support: Continue Nepro at 50 ml/hr. Water flush per MD order until Na lab WNL. Kcal 2,161 Protein (gm) 97 Fluid (mL) 872 Goal #1 TF tolerance Goal #2 Meet nutrient needs as best possible with TF Follow-Up By: 09/10/18 Additional Comments F/U: TF goal rate/tolerance, Na lab/water flushes
[2018-09-08] MEDS ORDERED: CEPHULAC PO PRN (18:29)
[2018-09-09] MEDS: HumaLOG SUB-Q SCH ×4 (00:10→18:08)
[2018-09-09] MEDS: D5W 1,000 ML IV SCH ×3 (02:04→23:44)
[2018-09-09] MEDS: FREE WATER PO SCH ×7 (02:05→20:00)
--- NOTE | 2018-09-09 02:27 | XRay Report ---
FINAL REPORT PROCEDURE: XR CHEST 1V AP TECHNIQUE: Chest radiograph anteroposterior view. CPT 32345 HISTORY: follow up respiratory failure COMPARISON: 09/08/2018 FINDINGS: Heart: Normal. Mediastinum/Vessels: Normal. Lungs/Pleural space: There is atelectasis/possible infiltrate in the right lower lung. Slight atelect asis left lower lung.. Bony thorax: No acute osseous abnormality. Life support devices: The endotracheal tube ends 4 centimeters above the mariama. A nasogastric tube e nds below the hemidiaphragms.. IMPRESSION: Atelectasis and possible slight infiltrate right lower lung. Slight atelectasis left lower lung uncha nged. The endotracheal tube and nasogastric tube are properly positioned..
[2018-09-09] MEDS: DUONEB *Not for PRN Use IH SCH ×4 (02:43→19:58)
[2018-09-09] MEDS: fentaNYL DRIP Premix 2,000 MCG/100 ML BAG IV SCH (02:55)
[2018-09-09 04:40] LABS: Hematocrit 42.7 % (35.5-45.6); Hemoglobin 13.5 gm/dl (11.8-15.2); Mean Corpuscular HGB Conc 32 % (32-34); Mean Corpuscular Volume 95 fl (84-94); Platelet Count 130 K/mm3 (140-440); Red Blood Count 4.48 M/mm3 (3.65-5.03); Red Cell Distribution Width 15.3 % (13.2-15.2)
[2018-09-09 05:05] LABS: BUN/Creatinine Ratio 62; Blood Urea Nitrogen 62 mg/dL (9-20); Calcium 10.3 mg/dL (8.4-10.2); Hemolysis Index 7
[2018-09-09] MEDS: SOLU-Medrol IV SCH ×2 (05:25→21:59)
[2018-09-09] MEDS: PROCTOSOL-HC PR SCH ×3 (05:26→21:57)
--- NOTE | 2018-09-09 06:47 | Progress Note ---
Assessment and Plan - Patient Problems (1) Acute renal failure Current Visit: Yes Status: Acute Plan to address problem: Labs indicate stable clearance. Overall renal function stable. Non-oliguric with 900cc urine output over stock holder per nurse. Anaya placed for accurate I/O in this critically ill patient. 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 Management per primary team. (3) Hypernatremia Current Visit: Yes Status: Acute Plan to address problem: Secondary to free water losses in the setting of decreased PO intake, current intubated state. Obtaining free water flushes 300 cc q 4 hours. Serum sodium levels stable. continue to monitor. Also D5W at 75 cc/hr was ordered. Will increase to 100 cc/hr. (4) Hypercalcemia Current Visit: Yes Status: Acute Plan to address problem: Levels had been stable, but slight increase noted this am. Will increase rate on D5W to 100 cc/hr. Subjective Date of service: 09/09/18 Principal diagnosis: Ac Hypoxemic Resp failure; AE-COPD; Pneumonia (Aspiration); Ac encephalopat Interval history: No acute changes overnigth, continues on FWF and D5W. Labs noted. Renal function stable. Anaya placed, urine looks clear this am. Objective - Vital Signs Vital signs: Vital Signs - 12hr 09/08/18 09/08/18 09/08/18 18:46 19:00 19:16 Temperature Pulse Rate 92 H 92 H 97 H Pulse Rate [ Anterior Bilateral Throughout] Pulse Rate [ From Monitor] Respiratory 12 13 11 L Rate Respiratory Rate [Anterior Bilateral Throughout] Blood Pressure 136/79 119/71 135/90 O2 Sat by Pulse 93 92 92 Oximetry 09/08/18 09/08/18 09/08/18 19:30 19:43 19:46 Temperature Pulse Rate 93 H 91 H 91 H Pulse Rate [ 92 H Anterior Bilateral Throughout] Pulse Rate [ From Monitor] Respiratory 12 12 Rate Respiratory 12 Rate [Anterior Bilateral Throughout] Blood Pressure 119/71 120/68 120/68 O2 Sat by Pulse 91 92 93 Oximetry 09/08/18 09/08/18 09/08/18 19:58 20:00 20:16 Temperature 97.9 F Pulse Rate 89 85 Pulse Rate [ 94 H Anterior Bilateral Throughout] Pulse Rate [ 88 From Monitor] Respiratory 12 11 L Rate Respiratory 12 Rate [Anterior Bilateral Throughout] Blood Pressure 135/74 129/72 O2 Sat by Pulse 94 96 Oximetry 09/08/18 09/08/18 09/08/18 20:30 20:46 21:00 Temperature Pulse Rate 86 86 85 Pulse Rate [ Anterior Bilateral Throughout] Pulse Rate [ From Monitor] Respiratory 11 L 12 14 Rate Respiratory Rate [Anterior Bilateral Throughout] Blood Pressure 119/69 121/69 121/73 O2 Sat by Pulse 91 93 90 Oximetry 09/08/18 09/08/18 09/08/18 21:16 21:30 21:46 Temperature Pulse Rate 85 85 85 Pulse Rate [ Anterior Bilateral Throughout] Pulse Rate [ From Monitor] Respiratory 10 L 12 12 Rate Respiratory Rate [Anterior Bilateral Throughout] Blood Pressure 127/74 120/70 120/70 O2 Sat by Pulse 92 90 93 Oximetry 09/08/18 09/08/18 09/08/18 22:00 22:16 22:30 Temperature Pulse Rate 84 84 83 Pulse Rate [ Anterior Bilateral Throughout] Pulse Rate [ From Monitor] Respiratory 13 12 12 Rate Respiratory Rate [Anterior Bilateral Throughout] Blood Pressure 116/68 115/66 124/69 O2 Sat by Pulse 91 93 92 Oximetry 09/08/18 09/08/18 09/08/18 22:46 23:00 23:16 Temperature Pulse Rate 86 86 87 Pulse Rate [ Anterior Bilateral Throughout] Pulse Rate [ From Monitor] Respiratory 11 L 11 L 12 Rate Respiratory Rate [Anterior Bilateral Throughout] Blood Pressure 132/76 125/72 123/75 O2 Sat by Pulse 94 91 94 Oximetry 09/08/18 09/08/18 09/08/18 23:19 23:20 23:23 Temperature 100 F H 99.2 F Pulse Rate 86 Pulse Rate [ Anterior Bilateral Throughout] Pulse Rate [ From Monitor] Respiratory Rate Respiratory Rate [Anterior Bilateral Throughout] Blood Pressure 123/75 O2 Sat by Pulse 93 Oximetry 09/08/18 09/08/18 09/08/18 23:30 23:38 23:46 Temperature Pulse Rate 86 86 86 Pulse Rate [ Anterior Bilateral Throughout] Pulse Rate [ From Monitor] Respiratory 12 11 L 12 Rate Respiratory Rate [Anterior Bilateral Throughout] Blood Pressure 128/71 128/71 118/70 O2 Sat by Pulse 92 94 93 Oximetry 09/09/18 09/09/18 09/09/18 00:00 00:16 00:30 Temperature Pulse Rate 86 86 84 Pulse Rate [ Anterior Bilateral Throughout] Pulse Rate [ 85 From Monitor] Respiratory 12 12 12 Rate Respiratory Rate [Anterior Bilateral Throughout] Blood Pressure 130/72 118/70 127/72 O2 Sat by Pulse 90 93 91 Oximetry 09/09/18 09/09/18 09/09/18 00:46 01:00 01:16 Temperature Pulse Rate 85 85 84 Pulse Rate [ Anterior Bilateral Throughout] Pulse Rate [ From Monitor] Respiratory 13 13 12 Rate Respiratory Rate [Anterior Bilateral Throughout] Blood Pressure 124/69 122/72 124/72 O2 Sat by Pulse 93 91 93 Oximetry 09/09/18 09/09/18 09/09/18 01:30 01:46 02:00 Temperature Pulse Rate 85 85 86 Pulse Rate [ Anterior Bilateral Throughout] Pulse Rate [ From Monitor] Respiratory 11 L 12 12 Rate Respiratory Rate [Anterior Bilateral Throughout] Blood Pressure 121/72 129/72 132/77 O2 Sat by Pulse 91 93 91 Oximetry 09/09/18 09/09/18 09/09/18 02:16 02:30 02:44 Temperature Pulse Rate 85 90 Pulse Rate [ 94 H Anterior Bilateral Throughout] Pulse Rate [ From Monitor] Respiratory 13 16 Rate Respiratory 14 Rate [Anterior Bilateral Throughout] Blood Pressure 134/78 134/78 O2 Sat by Pulse 93 Oximetry 09/09/18 09/09/18 09/09/18 02:46 02:59 03:00 Temperature Pulse Rate 88 84 Pulse Rate [ 96 H Anterior Bilateral Throughout] Pulse Rate [ From Monitor] Respiratory 13 12 Rate Respiratory 14 Rate [Anterior Bilateral Throughout] Blood Pressure 137/85 134/77 O2 Sat by Pulse 94 95 Oximetry 09/09/18 09/09/18 09/09/18 03:16 03:30 03:33 Temperature 99.7 F H Pulse Rate 86 84 Pulse Rate [ Anterior Bilateral Throughout] Pulse Rate [ From Monitor] Respiratory 12 12 Rate Respiratory Rate [Anterior Bilateral Throughout] Blood Pressure 137/85 131/75 O2 Sat by Pulse 96 96 Oximetry 09/09/18 09/09/18 09/09/18 03:46 04:00 04:16 Temperature Pulse Rate 84 83 82 Pulse Rate [ Anterior Bilateral Throughout] Pulse Rate [ 82 From Monitor] Respiratory 12 12 12 Rate Respiratory Rate [Anterior Bilateral Throughout] Blood Pressure 129/75 127/75 O2 Sat by Pulse 92 92 93 Oximetry 09/09/18 09/09/18 09/09/18 04:30 04:31 04:46 Temperature Pulse Rate 82 82 82 Pulse Rate [ Anterior Bilateral Throughout] Pulse Rate [ From Monitor] Respiratory 12 16 Rate Respiratory Rate [Anterior Bilateral Throughout] Blood Pressure 127/73 127/75 118/69 O2 Sat by Pulse 91 92 91 Oximetry 09/09/18 09/09/18 09/09/18 05:00 05:16 05:30 Temperature Pulse Rate 81 80 79 Pulse Rate [ Anterior Bilateral Throughout] Pulse Rate [ From Monitor] Respiratory 16 16 16 Rate Respiratory Rate [Anterior Bilateral Throughout] Blood Pressure 120/70 116/71 122/73 O2 Sat by Pulse 90 92 91 Oximetry 09/09/18 09/09/18 05:46 06:00 Temperature Pulse Rate 79 78 Pulse Rate [ Anterior Bilateral Throughout] Pulse Rate [ From Monitor] Respiratory 16 16 Rate Respiratory Rate [Anterior Bilateral Throughout] Blood Pressure 121/73 120/73 O2 Sat by Pulse 93 92 Oximetry - General Appearance General appearance: appears stated age, intubated, frail EENT: ATNC, PERRL Neck: no JVD, no thyromegaly Respiratory: Present: Decreased Breath Sounds Cardiology: regular, S1S2 Gastrointestinal: normal, normoactive bowel sounds Integumentary: no rash Neurologic: other (intubated, sedated ) Musculoskeletal: other (-edema) Psychiatric: other (intubated, sedated, ) - Lab 09/09/18 04:01 09/09/18 04:01 Most recent lab results Calcium 10.3 mg/dL (8.4-10.2) H 09/09/18 04:01 - Imaging Chest x-ray: report reviewed - Allied health notes Allied health notes reviewed: nursing Medications & Allergies - Medications Allergies/Adverse Reactions: Allergies No Known Allergies Allergy (Verified 09/02/18 13:48) Home Medications: Home Medications Medication Instructions Recorded Confirmed Last Taken Type Hydrochlorothiazide 25 mg PO DAILY 09/07/18 09/07/18 Unknown History Lisinopril 5 mg PO DAILY 09/07/18 09/07/18 Unknown History Rosuvastatin Calcium 40 mg PO DAILY 09/07/18 09/07/18 Unknown History Tamsulosin 0.4 mg PO DAILY 09/07/18 09/07/18 Unknown History metFORMIN 500 mg PO BID 09/07/18 09/07/18 Unknown History Active Medications: Generic Name Dose Route Start Last Admin Trade Name Freq PRN Reason Stop Dose Admin Acetaminophen 650 mg 09/02/18 15:03 Tylenol PO Q4H PRN Pain, Mild (1-3) Albuterol 2.5 mg 09/06/18 17:35 09/06/18 19:34 Proventil IH 2.5 mg Q4HRT PRN Administration Shortness Of Breath Albuterol/Ipratropium 1 ampul 09/06/18 17:35 09/09/18 02:43 Duoneb *Not For Prn Use* IH 1 ampul Q6HRT ROXY Administration Lipase/Protease/Amylase 1 each 09/07/18 14:01 Pancreazzulay [place] 10,500 Unit FEEDTUBE PRN PRN For Clogged Feeding Tube Arformoterol Tartrate 15 mcg 09/06/18 20:45 09/08/18 19:43 Brovana Nebu IH 15 mcg Q12HRT ROXY Administration Atorvastatin Calcium 40 mg 09/02/18 22:00 09/08/18 22:27 Lipitor PO 40 mg QHS ROXY Administration Azithromycin 500 mg 09/08/18 15:00 09/08/18 16:16 Zithromax PO 09/10/18 10:01 500 mg QDAY ROXY Administration Bisacodyl 10 mg 09/02/18 15:03 Dulcolax SC QDAY PRN Constipation Budesonide 0.5 mg 09/07/18 08:00 09/08/18 19:43 Pulmicort IH 0.5 mg Q12HRT ROXY Administration Bupropion HCl 150 mg 09/07/18 14:00 09/08/18 22:28 Wellbutrin Sr PO 150 mg BID ROXY Administration Dextrose 50 ml 09/08/18 10:58 D50w (25gm) Syringe IV PRN PRN Hypoglycemia Enoxaparin Sodium 40 mg 09/08/18 15:00 09/08/18 16:20 Lovenox SUB-Q 40 mg QDAY@1000 ROXY Administration Fentanyl 50 mcg 09/06/18 20:30 09/07/18 07:59 Sublimaze IV 50 mcg Q10MIN PRN Administration ANALGESIA Hydrochlorothiazide 25 mg 09/07/18 15:00 09/08/18 10:08 Hctz PO 25 mg QDAY ROXY Administration Hydrocortisone Acetate 1 applic 09/04/18 16:00 09/09/18 05:26 Proctosol-Hc SC 1 applic Q8HR ROXY Administration Hydrophilic Ointment 1 applic 09/06/18 15:34 Vaseline Lip Therapy TP Q2H PRN Dry Lips Ceftriaxone Sodium 1 gm in 50 mls @ 100 mls/hr 09/06/18 10:00 09/08/18 10:11 Rocephin/Ns 1 Gm/50 Ml IV 100 mls/hr Q24HR ROXY Administration Protocol Fentanyl Citrate 2,000 mcg in 100 mls @ 4.985 mls/hr 09/06/18 21:00 09/09/18 06:17 Fentanyl Drip Premix IV 2 mcg/kg/hr TITR ROXY 9.97 mls/hr Titration Protocol 1 MCG/KG/HR Propofol 1,000 mg in 100 mls @ 2.991 mls/hr 09/06/18 21:00 09/08/18 11:44 Diprivan 10 Mg/Ml IV 0 mcg/kg/min TITR ROXY 0 mls/hr Titration Protocol 5 MCG/KG/MIN Dextrose 1,000 mls @ 75 mls/hr 09/07/18 18:00 09/09/18 02:04 D5w IV 75 mls/hr DIRECT ROXY Administration Insulin Human Lispro 0 unit 09/08/18 12:00 09/09/18 05:32 Humalog SUB-Q 2 unit Q6HR ROXY Administration Protocol Lactulose 20 gm 09/08/18 18:29 Cephulac PO Q6HR PRN Delerium Lansoprazole 30 mg 09/08/18 10:00 09/08/18 10:10 Prevacid Solutab FEEDTUBE 30 mg QDAY ROXY Administration Magnesium Hydroxide 30 ml 09/02/18 15:03 Milk Of Magnesia PO Q4H PRN Constipation Methylprednisolone Sodium Succinate 60 mg 09/06/18 22:00 09/09/18 05:25 Solu-Medrol IV 60 mg Q8HR ROXY Administration Metoclopramide HCl 10 mg 09/02/18 15:03 Reglan PO Q6H PRN Nausea And Vomiting Multi-Ingred Cream/Lotion/Oil/Oint 1 applic 09/06/18 15:34 Artificial Tears Ophth Oint OU Q4H PRN Dry Eye(s) Ondansetron HCl 4 mg 09/02/18 15:03 Zofran IV Q8H PRN Nausea And Vomiting Promethazine HCl 25 mg 09/02/18 15:03 Phenergan SC Q6H PRN Nausea And Vomiting Simple Syrup 15 ml 09/07/18 14:01 Simple Syrup FEEDTUBE PRN PRN Hypoglycemia Simple Syrup 30 ml 09/07/18 14:01 Simple Syrup FEEDTUBE PRN PRN Hypoglycemia Sodium Bicarbonate 325 mg 09/07/18 14:01 Sodium Bicarbonate FEEDTUBE PRN PRN For Clogged Feeding Tube Sodium Chloride 10 ml 09/02/18 15:03 Sodium Chloride Flush Syringe 10 Ml IV PRN PRN LINE FLUSH Tamsulosin HCl 0.4 mg 09/07/18 15:00 09/08/18 10:09 Flomax PO 0.4 mg QDAY ROXY Administration
[2018-09-09] MEDS: BROVANA NEBU IH SCH ×2 (08:21→19:58)
[2018-09-09] MEDS: PULMICORT IH SCH ×2 (08:21→19:59)
[2018-09-09] MEDS: ROCEPHIN/NS 1 GM/50 ML 1 GM/50 ML BAG IV SCH (09:34)
[2018-09-09] MEDS: HCTZ PO SCH (09:35)
[2018-09-09] MEDS: LOVENOX SUB-Q SCH (09:35)
[2018-09-09] MEDS: PREVACID SOLUTAB FEEDTUBE SCH (09:35)
[2018-09-09] MEDS: FLOMAX PO SCH (09:35)
[2018-09-09] MEDS: ZITHROMAX PO SCH (09:35)
[2018-09-09] MEDS: WELLBUTRIN SR PO SCH ×2 (09:35→21:57)
--- NOTE | 2018-09-09 11:29 | Progress Note ---
Assessment and Plan Acute hypoxemic respiratory failure, now on mechanical ventilatory support. Acute chronic obstructive pulmonary disease exacerbation. Pneumonia, right lower lobe present at presentation, possibly aspiration. Obesity. Acute encephalopathy. Possible hyperthyroidism. Elevated serum ammonia, now resolved. Elevated D-dimer with a negative pulmonary embolism workup. Coagulopathy. Hyperglycemia. Acute kidney injury, resolved. Hypernatremia - reduced set rate to 12/min - continue daily SBT's as tolerated - keep Peep at 8 - continue to wean oxygen to keep O2 Sat's > 90% thereafter - placed bite-block as biting ETT - VAP bundle addressed - titrate sedation for RASS 0 to -1 - reduce seroquel to 75 mg bid - complete zithromax & Rocephin for CAP empiric coverage - neurology evaluation ongoing (Follow EEG report) - continue enteral nutrition as tolerated - continue bronchodilators with pulmonary hygiene per RT - daily SAT's - mobility protocol for pressure ulcer prophylaxis - GI & VTE prophylaxis - glycemic control with SSI for target BG 140 - 180 mg/dL - resume chronic disease medications - continue other care per attending / other consultants ...... re-evaluate in am & prn ... care plan discussed with attending The high probability of a clinically significant, sudden or life threatening deterioration of the [Pulmonary,cardiac & neurologic] system(s) required my full and direct attention, intervention and personal management. The aggregate critical care time was [35] minutes. This time is in addition to time spent performing reported procedures but includes the following: [x] Data Review and interpretation [x] Patient assessment and monitoring of vital signs [x] Documentation Subjective Date of service: 09/09/18 Principal diagnosis: Ac Hypoxemic Resp failure; AE-COPD; Pneumonia (Aspiration); Ac encephalopat Interval history: Patient is seen today for: Acute hypoxemic respiratory failure, now on mechanical ventilatory support; Acute chronic obstructive pulmonary disease ex acerbation; Pneumonia, right lower lobe present at presentation, possibly aspiration; Obesity; Acute encephalopathy. Seen and examined at bedside; 24hour events reviewed; nursing and respiratory care staff consulted; no adverse overnight events reported to me; remains on MV S; still not tolerating weaning well but this time due to prolonged apnea's; no N/V/F/C Objective Vital Signs - 12hr 09/08/18 09/08/18 09/08/18 23:30 23:38 23:46 Temperature Pulse Rate 86 86 86 Pulse Rate [ Anterior Bilateral Throughout] Pulse Rate [ From Monitor] Respiratory 12 11 L 12 Rate Respiratory Rate [Anterior Bilateral Throughout] Blood Pressure 128/71 128/71 118/70 O2 Sat by Pulse 92 94 93 Oximetry 09/09/18 09/09/18 09/09/18 00:00 00:16 00:30 Temperature Pulse Rate 86 86 84 Pulse Rate [ Anterior Bilateral Throughout] Pulse Rate [ 85 From Monitor] Respiratory 12 12 12 Rate Respiratory Rate [Anterior Bilateral Throughout] Blood Pressure 130/72 118/70 127/72 O2 Sat by Pulse 90 93 91 Oximetry 09/09/18 09/09/18 09/09/18 00:46 01:00 01:16 Temperature Pulse Rate 85 85 84 Pulse Rate [ Anterior Bilateral Throughout] Pulse Rate [ From Monitor] Respiratory 13 13 12 Rate Respiratory Rate [Anterior Bilateral Throughout] Blood Pressure 124/69 122/72 124/72 O2 Sat by Pulse 93 91 93 Oximetry 09/09/18 09/09/18 09/09/18 01:30 01:46 02:00 Temperature Pulse Rate 85 85 86 Pulse Rate [ Anterior Bilateral Throughout] Pulse Rate [ From Monitor] Respiratory 11 L 12 12 Rate Respiratory Rate [Anterior Bilateral Throughout] Blood Pressure 121/72 129/72 132/77 O2 Sat by Pulse 91 93 91 Oximetry 09/09/18 09/09/18 09/09/18 02:16 02:30 02:44 Temperature Pulse Rate 85 90 Pulse Rate [ 94 H Anterior Bilateral Throughout] Pulse Rate [ From Monitor] Respiratory 13 16 Rate Respiratory 14 Rate [Anterior Bilateral Throughout] Blood Pressure 134/78 134/78 O2 Sat by Pulse 93 Oximetry 09/09/18 09/09/18 09/09/18 02:46 02:59 03:00 Temperature Pulse Rate 88 84 Pulse Rate [ 96 H Anterior Bilateral Throughout] Pulse Rate [ From Monitor] Respiratory 13 12 Rate Respiratory 14 Rate [Anterior Bilateral Throughout] Blood Pressure 137/85 134/77 O2 Sat by Pulse 94 95 Oximetry 09/09/18 09/09/18 09/09/18 03:16 03:30 03:33 Temperature 99.7 F H Pulse Rate 86 84 Pulse Rate [ Anterior Bilateral Throughout] Pulse Rate [ From Monitor] Respiratory 12 12 Rate Respiratory Rate [Anterior Bilateral Throughout] Blood Pressure 137/85 131/75 O2 Sat by Pulse 96 96 Oximetry 09/09/18 09/09/18 09/09/18 03:46 04:00 04:16 Temperature Pulse Rate 84 83 82 Pulse Rate [ Anterior Bilateral Throughout] Pulse Rate [ 82 From Monitor] Respiratory 12 12 12 Rate Respiratory Rate [Anterior Bilateral Throughout] Blood Pressure 129/75 127/75 O2 Sat by Pulse 92 92 93 Oximetry 09/09/18 09/09/18 09/09/18 04:30 04:31 04:46 Temperature Pulse Rate 82 82 82 Pulse Rate [ Anterior Bilateral Throughout] Pulse Rate [ From Monitor] Respiratory 12 16 Rate Respiratory Rate [Anterior Bilateral Throughout] Blood Pressure 127/73 127/75 118/69 O2 Sat by Pulse 91 92 91 Oximetry 09/09/18 09/09/18 09/09/18 05:00 05:16 05:30 Temperature Pulse Rate 81 80 79 Pulse Rate [ Anterior Bilateral Throughout] Pulse Rate [ From Monitor] Respiratory 16 16 16 Rate Respiratory Rate [Anterior Bilateral Throughout] Blood Pressure 120/70 116/71 122/73 O2 Sat by Pulse 90 92 91 Oximetry 09/09/18 09/09/18 09/09/18 05:46 06:00 06:16 Temperature Pulse Rate 79 78 80 Pulse Rate [ Anterior Bilateral Throughout] Pulse Rate [ From Monitor] Respiratory 16 16 16 Rate Respiratory Rate [Anterior Bilateral Throughout] Blood Pressure 121/73 120/73 123/74 O2 Sat by Pulse 93 92 93 Oximetry 09/09/18 09/09/18 09/09/18 06:30 06:46 07:00 Temperature Pulse Rate 78 77 77 Pulse Rate [ Anterior Bilateral Throughout] Pulse Rate [ From Monitor] Respiratory 16 16 16 Rate Respiratory Rate [Anterior Bilateral Throughout] Blood Pressure 123/72 119/71 119/73 O2 Sat by Pulse 92 93 93 Oximetry 09/09/18 09/09/18 09/09/18 07:16 07:30 07:46 Temperature Pulse Rate 76 75 75 Pulse Rate [ Anterior Bilateral Throughout] Pulse Rate [ From Monitor] Respiratory 16 16 16 Rate Respiratory Rate [Anterior Bilateral Throughout] Blood Pressure 118/71 121/72 122/71 O2 Sat by Pulse 93 92 94 Oximetry 09/09/18 09/09/18 09/09/18 08:00 08:14 08:16 Temperature 98.7 F Pulse Rate 74 72 Pulse Rate [ Anterior Bilateral Throughout] Pulse Rate [ 78 From Monitor] Respiratory 16 16 Rate Respiratory Rate [Anterior Bilateral Throughout] Blood Pressure 127/74 121/72 O2 Sat by Pulse 93 94 Oximetry 09/09/18 09/09/18 09/09/18 08:18 08:21 08:30 Temperature Pulse Rate 74 74 Pulse Rate [ 73 Anterior Bilateral Throughout] Pulse Rate [ From Monitor] Respiratory 16 Rate Respiratory 16 Rate [Anterior Bilateral Throughout] Blood Pressure 121/72 115/74 O2 Sat by Pulse 93 95 Oximetry 09/09/18 09/09/18 09/09/18 08:35 08:46 09:00 Temperature Pulse Rate 72 77 Pulse Rate [ 74 Anterior Bilateral Throughout] Pulse Rate [ From Monitor] Respiratory 16 16 Rate Respiratory 16 Rate [Anterior Bilateral Throughout] Blood Pressure 122/77 123/77 O2 Sat by Pulse 94 92 Oximetry 09/09/18 09/09/18 09/09/18 09:16 09:30 09:46 Temperature Pulse Rate 74 72 74 Pulse Rate [ Anterior Bilateral Throughout] Pulse Rate [ From Monitor] Respiratory 17 16 16 Rate Respiratory Rate [Anterior Bilateral Throughout] Blood Pressure 125/76 128/79 129/79 O2 Sat by Pulse 94 93 94 Oximetry 09/09/18 09/09/18 09/09/18 10:00 10:16 10:30 Temperature Pulse Rate 73 73 74 Pulse Rate [ Anterior Bilateral Throughout] Pulse Rate [ From Monitor] Respiratory 16 16 16 Rate Respiratory Rate [Anterior Bilateral Throughout] Blood Pressure 120/75 121/75 115/71 O2 Sat by Pulse 94 94 Oximetry 09/09/18 09/09/18 10:46 11:00 Temperature Pulse Rate 74 72 Pulse Rate [ Anterior Bilateral Throughout] Pulse Rate [ From Monitor] Respiratory 16 16 Rate Respiratory Rate [Anterior Bilateral Throughout] Blood Pressure 115/70 118/73 O2 Sat by Pulse 94 93 Oximetry Constitutional: appears uncomfortable, other (elderly looking CM, normocephalica nd atraumatic with mildly increased resp effort on MVS) Eyes: non-icteric ENT: oropharynx moist, other (ETT 23 cm SHADIA) Neck: supple, no lymphadenopathy, no JVD, other (large neck circumference) Effort: mildly labored Ascultation: Bilateral: diminished breath sounds, rhonchi Percussion: Bilateral: not dull Cardiovascular: regular rate and rhythm Gastrointestinal: normoactive bowel sounds, soft, non-tender, non-distended Integumentary: normal Extremities: no cyanosis, no edema, pink and warm, pulses normal Neurologic: non-focal exam, pupils equal and round, motor strength normal and, other (encephalopathic) Psychiatric: other (unable to assess) CBC and BMP: 09/10/18 05:07 09/10/18 05:07 ABG, PT/INR, D-dimer: ABG POC ABG pH 7.267 (7.35-7.45) L 09/09/18 04:33 POC ABG pCO2 76.6 (35-45) H 09/09/18 04:33 POC ABG pO2 69 (80-105) L 09/09/18 04:33 POC ABG HCO3 35.0 09/09/18 04:33 POC ABG Total CO2 37 09/09/18 04:33 POC ABG O2 Sat 90 09/09/18 04:33 PT/INR, D-dimer PT 21.8 Sec. (12.2-14.9) H 09/03/18 11:26 INR 1.86 (0.87-1.13) H 09/03/18 11:26 D-Dimer 4180.35 ng/mlDDU (0-234) H 09/02/18 12:35 Abnormal lab findings: Abnormal Labs 09/02/18 09/02/18 09/02/18 12:35 12:35 12:35 RBC 6.15 H Hgb 18.7 H Hct 57.7 H MCV RDW 15.5 H Plt Count Lymph % (Auto) 8.8 L Lymph # 0.9 L Seg Neutrophils % 83.2 H Seg Neutrophils # 8.9 H PT 20.8 H INR 1.74 H D-Dimer 4180.35 H POC ABG pH POC ABG pCO2 POC ABG pO2 Sodium Potassium Chloride Carbon Dioxide BUN Glucose POC Glucose Lactic Acid Calcium Total Bilirubin Direct Bilirubin AST Ammonia C-Reactive Protein Total Protein Albumin Triglycerides HDL Cholesterol Lipase TSH Free T4 Urine WBC (Auto) Salicylates < 0.3 L Acetaminophen 09/02/18 09/02/18 09/02/18 12:35 12:35 12:35 RBC Hgb Hct MCV RDW Plt Count Lymph % (Auto) Lymph # Seg Neutrophils % Seg Neutrophils # PT INR D-Dimer POC ABG pH POC ABG pCO2 POC ABG pO2 Sodium Potassium Chloride Carbon Dioxide BUN Glucose POC Glucose 167 H Lactic Acid 3.20 H* Calcium Total Bilirubin Direct Bilirubin AST Ammonia C-Reactive Protein Total Protein Albumin Triglycerides HDL Cholesterol Lipase TSH Free T4 Urine WBC (Auto) Salicylates Acetaminophen < 5.0 L 09/02/18 09/02/18 09/02/18 13:36 14:40 16:45 RBC Hgb Hct MCV RDW Plt Count Lymph % (Auto) Lymph # Seg Neutrophils % Seg Neutrophils # PT INR D-Dimer POC ABG pH POC ABG pCO2 POC ABG pO2 Sodium 159 H Potassium Chloride 114.7 H Carbon Dioxide BUN 90 H Glucose 172 H POC Glucose Lactic Acid 2.30 H* Calcium 10.8 H Total Bilirubin Direct Bilirubin 0.3 H AST Ammonia C-Reactive Protein Total Protein Albumin 2.6 L Triglycerides HDL Cholesterol Lipase 81 H TSH < 0.005 L Free T4 2.40 H Urine WBC (Auto) Salicylates Acetaminophen 09/03/18 09/03/18 09/03/18 11:26 11:26 11:26 RBC Hgb Hct MCV RDW Plt Count Lymph % (Auto) Lymph # Seg Neutrophils % Seg Neutrophils # PT 21.8 H INR 1.86 H D-Dimer POC ABG pH POC ABG pCO2 POC ABG pO2 Sodium 160 H Potassium Chloride 122.6 H Carbon Dioxide BUN 69 H Glucose 127 H POC Glucose Lactic Acid Calcium Total Bilirubin Direct Bilirubin AST Ammonia C-Reactive Protein Total Protein Albumin 2.1 L Triglycerides HDL Cholesterol Lipase TSH Free T4 Urine WBC (Auto) Salicylates Acetaminophen 09/03/18 09/03/18 09/03/18 11:26 15:39 20:23 RBC Hgb Hct MCV RDW Plt Count Lymph % (Auto) Lymph # Seg Neutrophils % Seg Neutrophils # PT INR D-Dimer POC ABG pH POC ABG pCO2 POC ABG pO2 Sodium 160 H 160 H Potassium Chloride Carbon Dioxide BUN Glucose POC Glucose Lactic Acid Calcium Total Bilirubin Direct Bilirubin AST Ammonia 75.0 H C-Reactive Protein Total Protein Albumin Triglycerides HDL Cholesterol Lipase TSH Free T4 Urine WBC (Auto) Salicylates Acetaminophen 09/03/18 09/04/18 09/04/18 Unknown 02:38 05:20 RBC Hgb Hct MCV RDW Plt Count Lymph % (Auto) Lymph # Seg Neutrophils % Seg Neutrophils # PT INR D-Dimer POC ABG pH POC ABG pCO2 POC ABG pO2 Sodium 160 H 166 H* Potassium Chloride 129.2 H Carbon Dioxide BUN 57 H Glucose 137 H POC Glucose Lactic Acid Calcium Total Bilirubin Direct Bilirubin AST Ammonia C-Reactive Protein Total Protein 5.8 L Albumin 2.7 L Triglycerides 150 H HDL Cholesterol 21 L Lipase TSH Free T4 Urine WBC (Auto) Salicylates Acetaminophen 09/04/18 09/04/18 09/04/18 05:20 09:11 13:35 RBC 5.12 H Hgb 15.5 H D 15.6 H Hct 48.0 H D 48.1 H MCV RDW 15.9 H Plt Count Lymph % (Auto) 11.8 L Lymph # 0.8 L Seg Neutrophils % 80.1 H Seg Neutrophils # PT INR D-Dimer POC ABG pH POC ABG pCO2 POC ABG pO2 Sodium 166 H* Potassium Chloride Carbon Dioxide BUN Glucose POC Glucose Lactic Acid Calcium Total Bilirubin Direct Bilirubin AST Ammonia C-Reactive Protein Total Protein Albumin Triglycerides HDL Cholesterol Lipase TSH Free T4 Urine WBC (Auto) Salicylates Acetaminophen 09/04/18 09/04/18 09/04/18 13:35 21:04 21:04 RBC Hgb 16.9 H Hct 58.3 H D MCV RDW Plt Count Lymph % (Auto) Lymph # Seg Neutrophils % Seg Neutrophils # PT INR D-Dimer POC ABG pH POC ABG pCO2 POC ABG pO2 Sodium 164 H* 159 H Potassium Chloride Carbon Dioxide BUN Glucose POC Glucose Lactic Acid Calcium Total Bilirubin Direct Bilirubin AST Ammonia C-Reactive Protein Total Protein Albumin Triglycerides HDL Cholesterol Lipase TSH Free T4 Urine WBC (Auto) Salicylates Acetaminophen 09/05/18 09/05/18 09/05/18 01:11 02:51 03:17 RBC Hgb Hct MCV RDW Plt Count Lymph % (Auto) Lymph # Seg Neutrophils % Seg Neutrophils # PT INR D-Dimer POC ABG pH 7.340 L POC ABG pCO2 57.8 H POC ABG pO2 74 L Sodium 152 H Potassium Chloride Carbon Dioxide BUN Glucose POC Glucose 116 H Lactic Acid Calcium Total Bilirubin Direct Bilirubin AST Ammonia C-Reactive Protein Total Protein Albumin Triglycerides HDL Cholesterol Lipase TSH Free T4 Urine WBC (Auto) Salicylates Acetaminophen 09/05/18 09/05/18 09/05/18 07:45 10:34 15:21 RBC Hgb Hct MCV RDW Plt Count Lymph % (Auto) Lymph # Seg Neutrophils % Seg Neutrophils # PT INR D-Dimer POC ABG pH POC ABG pCO2 POC ABG pO2 Sodium 156 H 153 H Potassium Chloride Carbon Dioxide BUN Glucose POC Glucose Lactic Acid Calcium Total Bilirubin Direct Bilirubin AST Ammonia 61.0 H C-Reactive Protein Total Protein Albumin Triglycerides HDL Cholesterol Lipase TSH Free T4 Urine WBC (Auto) Salicylates Acetaminophen 09/06/18 09/06/18 09/06/18 05:10 05:10 08:43 RBC 5.06 H Hgb Hct 47.8 H D MCV RDW 15.3 H Plt Count Lymph % (Auto) Lymph # Seg Neutrophils % Seg Neutrophils # PT INR D-Dimer POC ABG pH POC ABG pCO2 POC ABG pO2 Sodium 155 H 150 H Potassium Chloride 117.0 H Carbon Dioxide BUN 36 H Glucose 143 H POC Glucose Lactic Acid Calcium Total Bilirubin Direct Bilirubin AST Ammonia C-Reactive Protein Total Protein Albumin Triglycerides HDL Cholesterol Lipase TSH Free T4 Urine WBC (Auto) Salicylates Acetaminophen 09/06/18 09/06/18 09/06/18 13:21 15:11 16:23 RBC Hgb Hct MCV RDW Plt Count Lymph % (Auto) Lymph # Seg Neutrophils % Seg Neutrophils # PT INR D-Dimer POC ABG pH POC ABG pCO2 49.1 H POC ABG pO2 107 H Sodium 151 H Potassium Chloride Carbon Dioxide BUN Glucose POC Glucose 120 H Lactic Acid Calcium Total Bilirubin Direct Bilirubin AST Ammonia C-Reactive Protein Total Protein Albumin Triglycerides HDL Cholesterol Lipase TSH Free T4 Urine WBC (Auto) Salicylates Acetaminophen 09/06/18 09/07/18 09/07/18 21:58 00:25 02:49 RBC 5.32 H Hgb 16.1 H Hct 50.2 H MCV 95 H RDW 15.6 H Plt Count Lymph % (Auto) Lymph # Seg Neutrophils % Seg Neutrophils # PT INR D-Dimer POC ABG pH POC ABG pCO2 POC ABG pO2 Sodium 150 H Potassium Chloride Carbon Dioxide BUN Glucose POC Glucose Lactic Acid Calcium Total Bilirubin Direct Bilirubin AST Ammonia C-Reactive Protein 9.00 H Total Protein Albumin Triglycerides HDL Cholesterol Lipase TSH Free T4 Urine WBC (Auto) Salicylates Acetaminophen 09/07/18 09/07/18 09/07/18 02:49 03:43 09:17 RBC Hgb Hct MCV RDW Plt Count Lymph % (Auto) Lymph # Seg Neutrophils % Seg Neutrophils # PT INR D-Dimer POC ABG pH POC ABG pCO2 46.5 H POC ABG pO2 Sodium 149 H 155 H Potassium 5.2 H D Chloride 116.1 H Carbon Dioxide 21 L BUN 47 H Glucose 122 H POC Glucose Lactic Acid Calcium Total Bilirubin 1.80 H Direct Bilirubin AST 83 H Ammonia C-Reactive Protein Total Protein Albumin 1.8 L Triglycerides HDL Cholesterol Lipase TSH Free T4 Urine WBC (Auto) Salicylates Acetaminophen 09/07/18 09/08/18 09/08/18 16:02 00:14 00:51 RBC Hgb Hct MCV RDW Plt Count Lymph % (Auto) Lymph # Seg Neutrophils % Seg Neutrophils # PT INR D-Dimer POC ABG pH POC ABG pCO2 POC ABG pO2 Sodium 156 H 154 H Potassium Chloride Carbon Dioxide BUN Glucose POC Glucose Lactic Acid Calcium Total Bilirubin Direct Bilirubin AST Ammonia C-Reactive Protein Total Protein Albumin Triglycerides HDL Cholesterol Lipase TSH Free T4 Urine WBC (Auto) 41.0 H Salicylates Acetaminophen 09/08/18 09/08/18 09/08/18 04:22 04:22 04:46 RBC Hgb Hct MCV 95 H RDW 15.3 H Plt Count Lymph % (Auto) Lymph # Seg Neutrophils % Seg Neutrophils # PT INR D-Dimer POC ABG pH POC ABG pCO2 55.3 H POC ABG pO2 77 L Sodium 153 H Potassium 3.5 L D Chloride 114.8 H Carbon Dioxide BUN 69 H Glucose 277 H POC Glucose Lactic Acid Calcium Total Bilirubin Direct Bilirubin AST 44 H Ammonia C-Reactive Protein Total Protein 5.6 L Albumin 2.4 L Triglycerides HDL Cholesterol Lipase TSH Free T4 Urine WBC (Auto) Salicylates Acetaminophen 09/08/18 09/08/18 09/08/18 08:40 12:03 15:43 RBC Hgb Hct MCV RDW Plt Count Lymph % (Auto) Lymph # Seg Neutrophils % Seg Neutrophils # PT INR D-Dimer POC ABG pH POC ABG pCO2 POC ABG pO2 Sodium 154 H 152 H Potassium Chloride Carbon Dioxide BUN Glucose POC Glucose 186 H Lactic Acid Calcium Total Bilirubin Direct Bilirubin AST Ammonia C-Reactive Protein Total Protein Albumin Triglycerides HDL Cholesterol Lipase TSH Free T4 Urine WBC (Auto) Salicylates Acetaminophen 09/08/18 09/08/18 09/09/18 17:57 23:54 04:01 RBC Hgb Hct MCV 95 H RDW 15.3 H Plt Count 130 L Lymph % (Auto) Lymph # Seg Neutrophils % Seg Neutrophils # PT INR D-Dimer POC ABG pH POC ABG pCO2 POC ABG pO2 Sodium Potassium Chloride Carbon Dioxide BUN Glucose POC Glucose 252 H 297 H Lactic Acid Calcium Total Bilirubin Direct Bilirubin AST Ammonia C-Reactive Protein Total Protein Albumin Triglycerides HDL Cholesterol Lipase TSH Free T4 Urine WBC (Auto) Salicylates Acetaminophen 09/09/18 09/09/18 09/09/18 04:01 04:33 05:32 RBC Hgb Hct MCV RDW Plt Count Lymph % (Auto) Lymph # Seg Neutrophils % Seg Neutrophils # PT INR D-Dimer POC ABG pH 7.267 L POC ABG pCO2 76.6 H POC ABG pO2 69 L Sodium 150 H Potassium Chloride 110.9 H Carbon Dioxide 32 H BUN 62 H Glucose 220 H POC Glucose 196 H Lactic Acid Calcium 10.3 H Total Bilirubin Direct Bilirubin AST Ammonia C-Reactive Protein Total Protein Albumin Triglycerides HDL Cholesterol Lipase TSH Free T4 Urine WBC (Auto) Salicylates Acetaminophen Allied health notes reviewed: nursing
--- NOTE | 2018-09-09 17:22 | Progress Note ---
Assessment and Plan Assessment and plan: 68 YO Male with Obesity Hypoventilation, COPD presents to ED for evaluation. Pt is confused, lethargic and unable to provide history. Pt history provided by his brother who is at bedside during exam and interview. As per brother, the patient has not returned phone calls over the past 4 days. As a result, the brother went to the home but the patient did not answer the door. Law Enforcement notified, and entry into the home was obtained. The patient was found down and covered in his own feces. Pt exhibited slurred speech, confusion. EMS notified and upon arrival, the patient was found to have a neurologic deficit. A code stroke was called, and the patient was transported to [facility]. Pt seen and evaluated in ED and found to have evidence of CVA as well as SIRS, Acidosis, and Encephalopathy. Pt admitted to telemetry and initiated on CVA protocol. He was intubated with concern for aspiration. Neurology consulted. Acute Metabolic encephalopathy Acute Hypoxic Respiratory failure Hypernatremia Rectal Bleed. Aspiration Pneumonia Obesity Hypoventilation syndrome ETOH use disorder hYPOTHYRODISIM Moderate Protien calorie Malnutrition Secondary Coagulopathy ?UNDERLYING LIVER DISEASE VS IATROGENIC MEDICATION Sepsis Tobacco use disorder per hx Plan Continue supportive care, s/p Intubation Continue aspiration precautions General Activities Therapist input appreciated Family updated Home meds reviewed, Nurse to input in system Continue free water and lactulose Nephrology consult to assist Discontinue ASA. NO CVA and now with rectal bleed. Seizure precautions Continue Empiric abx Aspiration precautions DVT/GI prophy Call placed to family to obtain more clinical information Still awaiting home meds Requested records from [place] still pending. Discussed with Nursing staff The high probability of a clinically significant, sudden or life threatening deterioration of the [pulmonary, milk condenser] system(s) required my full and direct attention, intervention and personal management. The aggregate critical care t stephen was [45] minutes. This time is in addition to time spent performing reported procedures but includes the following: [x] Data Review and interpretation [x] Patient assessment and monitoring of vital signs [x] Documentation [x] Medication orders and management History Interval history: Patient was seen and evaluated this morning, patient was intubated and on mechanical ventilation. Hospitalist Physical - Physical exam Narrative exam: Patient is intubated and mechanical ventilation. The patient appeared well nourished and normally developed. Vital signs as documented. Head exam is unremarkable. No scleral icterus . Neck is without jugular venous distension, thyromegaly, or carotid bruits. Lungs are clear to auscultation. Cardiac exam reveals regular rate and Rhythm. First and second heart sounds normal. No murmurs, rubs or gallops. Abdominal exam reveals normal bowel sounds, no masses, no organomegaly and no aortic enlargement. Extremities are nonedematous and both femoral and pedal pulses are normal. STAMP MAKER: Sedated. - Constitutional Vitals: Temp Pulse Resp BP Pulse Ox 98.3 F 73 11 L 126/69 94 09/09/18 12:00 09/09/18 17:00 09/09/18 17:00 09/09/18 17:00 09/09/18 17:00 General appearance: Present: mild distress, obese, disheveled Results - Labs CBC & Chem 7: 09/09/18 04:01 09/09/18 04:01 Labs: Laboratory Last Values WBC 7.6 K/mm3 (4.5-11.0) 09/09/18 04:01 RBC 4.48 M/mm3 (3.65-5.03) 09/09/18 04:01 Hgb 13.5 gm/dl (11.8-15.2) 09/09/18 04:01 Hct 42.7 % (35.5-45.6) 09/09/18 04:01 MCV 95 fl (84-94) H 09/09/18 04:01 MCH 30 pg (28-32) 09/09/18 04:01 MCHC 32 % (32-34) 09/09/18 04:01 RDW 15.3 % (13.2-15.2) H 09/09/18 04:01 Plt Count 130 K/mm3 (140-440) L 09/09/18 04:01 Lymph % (Auto) 11.8 % (13.4-35.0) L 09/04/18 05:20 [place] % (Auto) 6.8 % (0.0-7.3) 09/04/18 05:20 Eos % (Auto) 1.0 % (0.0-4.3) 09/04/18 05:20 Baso % (Auto) 0.3 % (0.0-1.8) 09/04/18 05:20 Lymph # 0.8 K/mm3 (1.2-5.4) L 09/04/18 05:20 [place] # 0.5 K/mm3 (0.0-0.8) 09/04/18 05:20 Eos # 0.1 K/mm3 (0.0-0.4) 09/04/18 05:20 Baso # 0.0 K/mm3 (0.0-0.1) 09/04/18 05:20 Seg Neutrophils % 80.1 % (40.0-70.0) H 09/04/18 05:20 Seg Neutrophils # 5.5 K/mm3 (1.8-7.7) 09/04/18 05:20 PT 21.8 Sec. (12.2-14.9) H 09/03/18 11:26 INR 1.86 (0.87-1.13) H 09/03/18 11:26 APTT 32.5 Sec. (24.2-36.6) 09/02/18 12:35 D-Dimer 4180.35 ng/mlDDU (0-234) H 09/02/18 12:35 POC ABG pH 7.267 (7.35-7.45) L 09/09/18 04:33 POC ABG pCO2 76.6 (35-45) H 09/09/18 04:33 POC ABG pO2 69 (80-105) L 09/09/18 04:33 POC ABG HCO3 35.0 09/09/18 04:33 POC ABG Total CO2 37 09/09/18 04:33 POC ABG O2 Sat 90 09/09/18 04:33 POC ABG Base Excess 8 09/09/18 04:33 FiO2 40 % 09/09/18 04:33 Sodium 150 mmol/L (137-145) H 09/09/18 04:01 Potassium 3.9 mmol/L (3.6-5.0) 09/09/18 04:01 Chloride 110.9 mmol/L (98-107) H 09/09/18 04:01 Carbon Dioxide 32 mmol/L (22-30) H 09/09/18 04:01 Anion Gap 11 mmol/L 09/09/18 04:01 BUN 62 mg/dL (9-20) H 09/09/18 04:01 Creatinine 1.0 mg/dL (0.8-1.5) 09/09/18 04:01 Estimated GFR > 60 ml/min 09/09/18 04:01 BUN/Creatinine Ratio 62 % 09/09/18 04:01 Glucose 220 mg/dL (75-100) H 09/09/18 04:01 POC Glucose 217 (70-105) H 09/09/18 11:40 Lactic Acid 1.40 mmol/L (0.7-2.0) 09/06/18 21:58 Calcium 10.3 mg/dL (8.4-10.2) H 09/09/18 04:01 Total Bilirubin 0.70 mg/dL (0.1-1.2) 09/08/18 04:22 Direct Bilirubin < 0.2 mg/dL (0-0.2) 09/03/18 11:26 Indirect Bilirubin 0.3 mg/dL 09/02/18 13:36 AST 44 units/L (5-40) H 09/08/18 04:22 ALT 33 units/L (7-56) 09/08/18 04:22 Alkaline Phosphatase 80 units/L (35-129) 09/08/18 04:22 Ammonia 58.0 umol/L (25-60) 09/06/18 05:10 Total Creatine Kinase 98 units/L (55-170) 09/02/18 13:36 Troponin T 0.018 ng/mL (0.00-0.029) 09/02/18 13:36 C-Reactive Protein 9.00 mg/dL (0.00-1.30) H 09/06/18 21:58 NT-Pro-B Natriuret Pep 873.7 pg/mL (0-900) 09/02/18 13:36 Total Protein 5.6 g/dL (6.3-8.2) L 09/08/18 04:22 Albumin 2.4 g/dL (3.9-5) L 09/08/18 04:22 Albumin/Globulin Ratio 0.8 % 09/08/18 04:22 Triglycerides 150 mg/dL (2-149) H 09/03/18 Unknown Cholesterol 116 mg/dL (50-199) 09/03/18 Unknown LDL Cholesterol Direct 69 mg/dL (50-130) 09/03/18 Unknown HDL Cholesterol 21 mg/dL (40-59) L 09/03/18 Unknown Cholesterol/HDL Ratio 5.52 % 09/03/18 Unknown Lipase 81 units/L (13-60) H 09/02/18 13:36 TSH < 0.005 mlU/mL (0.270-4.200) L 09/02/18 16:45 Free T4 2.40 ng/dL (0.76-1.46) H 09/02/18 16:45 Urine Color [place] (Yellow) 09/08/18 00:14 Urine Turbidity Cloudy (Clear) 09/08/18 00:14 Urine pH 5.0 (5.0-7.0) 09/08/18 00:14 Ur Specific [place] 1.019 (1.003-1.030) 09/08/18 00:14 Urine Protein 30 mg/dl mg/dL (Negative) 09/08/18 00:14 Urine Glucose (UA) Neg mg/dL (Negative) 09/08/18 00:14 Urine Ketones Neg mg/dL (Negative) 09/08/18 00:14 Urine Blood Lg (Negative) 09/08/18 00:14 Urine Nitrite Neg (Negative) 09/08/18 00:14 Urine Bilirubin Neg (Negative) 09/08/18 00:14 Urine Urobilinogen 4.0 mg/dL (<2.0) 09/08/18 00:14 Ur Leukocyte Esterase Neg (Negative) 09/08/18 00:14 Urine WBC (Auto) 41.0 /HPF (0.0-6.0) H 09/08/18 00:14 Urine RBC (Auto) > 182.0 /HPF (0.0-6.0) 09/08/18 00:14 U Epithel Cells (Auto) 8.0 /HPF (0-13.0) 09/08/18 00:14 Urine Bacteria (Auto) 2+ /HPF (Negative) 09/08/18 00:14 Ur Transition Epith Cell 1 /HPF 09/08/18 00:14 Amorphous Crystals 3+ 09/08/18 00:14 Hyaline Casts 99 /LPF 09/08/18 00:14 Urine Mucus 2+ /HPF 09/08/18 00:14 Salicylates < 0.3 mg/dL (2.8-20.0) L 09/02/18 12:35 Urine Opiates Screen Presumptive negative 09/02/18 13:59 Urine Methadone Screen Presumptive negative 09/02/18 13:59 Acetaminophen < 5.0 ug/mL (10.0-30.0) L 09/02/18 12:35 Ur Barbiturates Screen Presumptive negative 09/02/18 13:59 Ur Phencyclidine Scrn Presumptive negative 09/02/18 13:59 Ur Amphetamines Screen Presumptive negative 09/02/18 13:59 U Benzodiazepines Scrn Presumptive negative 09/02/18 13:59 Urine Cocaine Screen Presumptive negative 09/02/18 13:59 U Marijuana (THC) Screen Presumptive negative 09/02/18 13:59 Drugs of Abuse Note Disclamer 09/02/18 13:59 Plasma/Serum Alcohol < 0.01 % (0-0.07) 09/02/18 12:35 Nutrition/Malnutrition Assess - Dietary Evaluation Nutrition/Malnutrition Findings: Nutrition Notes Start: 09/06/18 15:28 Freq: Status: Active Protocol: Document 09/08/18 13:36 PROSPER (Rec: 09/08/18 13:43 PROSPER [id number] [email or web address]) Nutrition Notes Initial or Follow up Reassessment Current Diagnosis Sepsis Respiratory Failure Stroke Current Diet TF - Nepro at 50ml/hr Labs/Tests Na 153 K 3.5 BUN 69 BG 277 Pertinent Medications 40mEq KCl x 1 dose Height 5 ft 9 in Weight 93.2 kg [place] Body Weight (kg) 72.72 BMI 30.3 Weight change and time frame Current wt obtained from bed scale Subjective/Other Information TF infusing at 40ml/hr. Pt tolerating TF, per RN report. Rate to be advanced to goal. Pt receiving 300ml water flush q4h per MD order. Percent of energy/protein needs met: 85% energy 54% pro Burn Absent Trauma Absent #1 Nutrition Diagnosis Inadequate oral intake Diagnosis Progress(for reassessment Continues documentation) Is patient on ventilator? Yes Is Patient Ambulatory and/or Out of Bed No REE-([facility]-confined to bed) [phone] Additional Notes Pro needs 2g/kg IBW: 145g/day Fluid needs 1ml/kcal Nutrition Intervention Nutrition Support: Continue Nepro at 50 ml/hr. Water flush per MD order until Na lab WNL. Kcal 2,161 Protein (gm) 97 Fluid (mL) 872 Goal #1 TF tolerance Goal #2 Meet nutrient needs as best possible with TF Follow-Up By: 09/10/18 Additional Comments F/U: TF goal rate/tolerance, Na lab/water flushes
[2018-09-09] MEDS: HALDOL IV PRN (19:05)
[2018-09-09] MEDS: LANTUS SUB-Q SCH (22:01)
[2018-09-09] MEDS: SUBLIMAZE IV PRN (22:24)
[2018-09-10] MEDS: HALDOL IV PRN ×3 (01:42→16:21)
[2018-09-10] MEDS: DUONEB *Not for PRN Use IH SCH ×4 (03:02→19:25)
--- NOTE | 2018-09-10 03:26 | XRay Report ---
FINAL REPORT PROCEDURE: XR CHEST 1V AP TECHNIQUE: Chest radiograph anteroposterior view. CPT 28029 HISTORY: follow up respiratory failure COMPARISON: 09/09/2018 FINDINGS: Heart: Normal. Mediastinum/Vessels: Normal. Lungs/Pleural space: No significant change in the appearance of atelectasis in both lower lungs. No e ffusion or pneumothorax. Bony thorax: No acute osseous abnormality. Life support devices: The endotracheal tube ends 4 centimeters above the mariama. A nasogastric tube e nds below the hemidiaphragms. IMPRESSION: No significant change in the appearance chest. The endotracheal tube and nasogastric tube are properl y positioned..
[2018-09-10] MEDS: FREE WATER PO SCH ×6 (04:00→22:19)
[2018-09-10] MEDS: SUBLIMAZE IV PRN ×2 (05:29→14:35)
[2018-09-10] MEDS: HumaLOG SUB-Q SCH ×4 (05:59→18:01)
[2018-09-10] MEDS: PROCTOSOL-HC PR SCH ×3 (06:00→21:53)
[2018-09-10 06:59] LABS: Hematocrit 43.7 % (35.5-45.6); Mean Corpuscular HGB Conc 32 % (32-34); Mean Corpuscular Volume 93 fl (84-94); Platelet Count 115 K/mm3 (140-440); Red Blood Count 4.72 M/mm3 (3.65-5.03); Red Cell Distribution Width 14.9 % (13.2-15.2)
[2018-09-10 07:22] LABS: BUN/Creatinine Ratio 66; Blood Urea Nitrogen 46 mg/dL (9-20); Calcium 10.3 mg/dL (8.4-10.2); Hemolysis Index 20
--- NOTE | 2018-09-10 07:27 | Progress Note ---
Assessment and Plan - Patient Problems (1) Acute renal failure Current Visit: Yes Status: Acute Plan to address problem: Labs indicate stable clearance. Overall renal function stable. Non-oliguric at present time based on I/O. Anaya placed for accurate I/O in this critically ill patient. 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 Management per primary team. (3) Hypernatremia Current Visit: Yes Status: Acute Plan to address problem: Secondary to free water losses in the setting of decreased PO intake, current intubated state. Labs show improvement this am. (4) Hypercalcemia Current Visit: Yes Status: Acute Plan to address problem: Levels had been stable, . Will increase rate on D5W to 100 cc/hr. Subjective Date of service: 09/10/18 Principal diagnosis: Ac Hypoxemic Resp failure; AE-COPD; Pneumonia (Aspiration); Ac encephalopat Interval history: Events overnight noted. Labs noted this am. Remains non-oliguric. Anaya remains in place. Chest Xray noted without any significnat changes. Remains on D5w at 100 cc/hr along with FWF with TF. Objective - Vital Signs Vital signs: Vital Signs - 12hr 09/09/18 09/09/18 09/09/18 19:30 19:45 19:59 Temperature Pulse Rate 73 73 Pulse Rate [ 84 Anterior Bilateral Throughout] Respiratory 12 13 Rate Respiratory 16 Rate [Anterior Bilateral Throughout] Blood Pressure 112/63 105/61 O2 Sat by Pulse 94 96 Oximetry 09/09/18 09/09/18 09/09/18 20:00 20:02 20:15 Temperature 97.6 F Pulse Rate 70 70 75 Pulse Rate [ Anterior Bilateral Throughout] Respiratory 12 11 L Rate Respiratory Rate [Anterior Bilateral Throughout] Blood Pressure 117/64 117/64 121/68 O2 Sat by Pulse 96 98 97 Oximetry 09/09/18 09/09/18 09/09/18 20:30 20:46 21:00 Temperature Pulse Rate 74 76 78 Pulse Rate [ Anterior Bilateral Throughout] Respiratory 11 L 12 12 Rate Respiratory Rate [Anterior Bilateral Throughout] Blood Pressure 113/64 109/65 124/70 O2 Sat by Pulse 95 97 97 Oximetry 09/09/18 09/09/18 09/09/18 21:16 21:30 21:45 Temperature Pulse Rate 82 79 78 Pulse Rate [ Anterior Bilateral Throughout] Respiratory 12 11 L 13 Rate Respiratory Rate [Anterior Bilateral Throughout] Blood Pressure 121/70 136/79 103/59 O2 Sat by Pulse 98 96 97 Oximetry 09/09/18 09/09/18 09/09/18 22:00 22:15 22:30 Temperature Pulse Rate 77 77 80 Pulse Rate [ Anterior Bilateral Throughout] Respiratory 14 12 14 Rate Respiratory Rate [Anterior Bilateral Throughout] Blood Pressure 122/76 141/87 141/87 O2 Sat by Pulse 94 96 98 Oximetry 09/09/18 09/09/18 09/09/18 22:46 22:55 23:00 Temperature Pulse Rate 74 73 90 Pulse Rate [ Anterior Bilateral Throughout] Respiratory 12 14 15 Rate Respiratory Rate [Anterior Bilateral Throughout] Blood Pressure 128/69 120/68 116/66 O2 Sat by Pulse 96 96 96 Oximetry 09/09/18 09/09/18 09/09/18 23:02 23:16 23:22 Temperature Pulse Rate 84 80 82 Pulse Rate [ Anterior Bilateral Throughout] Respiratory 14 13 Rate Respiratory Rate [Anterior Bilateral Throughout] Blood Pressure 129/80 120/70 110/67 O2 Sat by Pulse 97 98 97 Oximetry 09/09/18 09/09/18 09/10/18 23:30 23:45 00:00 Temperature 98.8 F Pulse Rate 79 78 88 Pulse Rate [ Anterior Bilateral Throughout] Respiratory 11 L 11 L 15 Rate Respiratory Rate [Anterior Bilateral Throughout] Blood Pressure 121/78 128/76 122/76 O2 Sat by Pulse 99 96 97 Oximetry 09/10/18 09/10/18 09/10/18 00:16 00:30 00:46 Temperature Pulse Rate 77 72 70 Pulse Rate [ Anterior Bilateral Throughout] Respiratory 16 12 12 Rate Respiratory Rate [Anterior Bilateral Throughout] Blood Pressure 116/65 117/71 117/72 O2 Sat by Pulse 96 97 Oximetry 09/10/18 09/10/18 09/10/18 01:00 01:16 01:30 Temperature Pulse Rate 70 81 90 Pulse Rate [ Anterior Bilateral Throughout] Respiratory 11 L 11 L 14 Rate Respiratory Rate [Anterior Bilateral Throughout] Blood Pressure 121/71 120/79 130/70 O2 Sat by Pulse 96 97 96 Oximetry 09/10/18 09/10/18 09/10/18 01:46 02:00 02:16 Temperature Pulse Rate 82 87 77 Pulse Rate [ 86 Anterior Bilateral Throughout] Respiratory 15 18 12 Rate Respiratory 18 Rate [Anterior Bilateral Throughout] Blood Pressure 122/72 130/77 127/70 O2 Sat by Pulse 96 95 96 Oximetry 09/10/18 09/10/18 09/10/18 02:30 02:46 03:00 Temperature Pulse Rate 76 75 88 Pulse Rate [ Anterior Bilateral Throughout] Respiratory 13 14 13 Rate Respiratory Rate [Anterior Bilateral Throughout] Blood Pressure 128/75 146/85 124/78 O2 Sat by Pulse 96 96 93 Oximetry 09/10/18 09/10/18 09/10/18 03:16 03:30 03:46 Temperature Pulse Rate 77 79 78 Pulse Rate [ Anterior Bilateral Throughout] Respiratory 14 14 14 Rate Respiratory Rate [Anterior Bilateral Throughout] Blood Pressure 110/67 111/70 105/68 O2 Sat by Pulse 93 96 96 Oximetry 09/10/18 09/10/18 09/10/18 04:00 04:05 04:16 Temperature 98.4 F Pulse Rate 91 H 81 82 Pulse Rate [ Anterior Bilateral Throughout] Respiratory 17 18 Rate Respiratory Rate [Anterior Bilateral Throughout] Blood Pressure 113/73 153/95 113/73 O2 Sat by Pulse 96 96 97 Oximetry 09/10/18 09/10/18 09/10/18 04:30 04:46 05:00 Temperature Pulse Rate 76 76 78 Pulse Rate [ Anterior Bilateral Throughout] Respiratory 14 14 16 Rate Respiratory Rate [Anterior Bilateral Throughout] Blood Pressure 138/76 142/79 121/75 O2 Sat by Pulse 93 95 95 Oximetry 09/10/18 09/10/18 09/10/18 05:16 05:30 05:46 Temperature Pulse Rate 77 72 72 Pulse Rate [ Anterior Bilateral Throughout] Respiratory 11 L 12 13 Rate Respiratory Rate [Anterior Bilateral Throughout] Blood Pressure 116/72 112/70 113/69 O2 Sat by Pulse 94 93 93 Oximetry 09/10/18 09/10/18 09/10/18 06:00 06:16 06:30 Temperature Pulse Rate 77 69 69 Pulse Rate [ Anterior Bilateral Throughout] Respiratory 12 13 12 Rate Respiratory Rate [Anterior Bilateral Throughout] Blood Pressure 99/61 99/61 105/64 O2 Sat by Pulse 95 94 Oximetry 09/10/18 09/10/18 09/10/18 06:46 07:00 07:16 Temperature Pulse Rate 69 68 66 Pulse Rate [ Anterior Bilateral Throughout] Respiratory 17 15 15 Rate Respiratory Rate [Anterior Bilateral Throughout] Blood Pressure 112/70 101/64 102/62 O2 Sat by Pulse 96 93 95 Oximetry - General Appearance General appearance: appears stated age, intubated EENT: ATNC, PERRL Neck: no JVD, no thyromegaly Respiratory: Present: Clear to Ascultation Cardiology: regular, S1S2 Gastrointestinal: normal, normoactive bowel sounds Integumentary: no rash Neurologic: other (intubated/sedated) Musculoskeletal: other (-edema ) - Lab 09/10/18 05:07 09/10/18 05:07 Most recent lab results Calcium 10.3 mg/dL (8.4-10.2) H 09/10/18 05:07 - Imaging Chest x-ray: report reviewed Medications & Allergies - Medications Allergies/Adverse Reactions: Allergies No Known Allergies Allergy (Verified 09/02/18 13:48) Home Medications: Home Medications Medication Instructions Recorded Confirmed Last Taken Type Hydrochlorothiazide 25 mg PO DAILY 09/07/18 09/07/18 Unknown History Lisinopril 5 mg PO DAILY 09/07/18 09/07/18 Unknown History Rosuvastatin Calcium 40 mg PO DAILY 09/07/18 09/07/18 Unknown History Tamsulosin 0.4 mg PO DAILY 09/07/18 09/07/18 Unknown History metFORMIN 500 mg PO BID 09/07/18 09/07/18 Unknown History Active Medications: Generic Name Dose Route Start Last Admin Trade Name Freq PRN Reason Stop Dose Admin Acetaminophen 650 mg 09/02/18 15:03 Tylenol PO Q4H PRN Pain, Mild (1-3) Albuterol 2.5 mg 09/06/18 17:35 09/06/18 19:34 Proventil IH 2.5 mg Q4HRT PRN Administration Shortness Of Breath Albuterol/Ipratropium 1 ampul 09/06/18 17:35 09/10/18 03:02 Duoneb *Not For Prn Use* IH Not Given Q6HRT ROXY Lipase/Protease/Amylase 1 each 09/07/18 14:01 Lana Winston 10,500 Unit FEEDTUBE PRN PRN For Clogged Feeding Tube Arformoterol Tartrate 15 mcg 09/06/18 20:45 09/09/18 19:58 Brovana Neryu IH 15 mcg Q12HRT ROXY Administration Atorvastatin Calcium 40 mg 09/02/18 22:00 09/09/18 21:59 Lipitor PO 40 mg QHS ROXY Administration Azithromycin 500 mg 09/08/18 15:00 09/09/18 09:35 Zithromax PO 09/10/18 10:01 500 mg QDAY ROXY Administration Bisacodyl 10 mg 09/02/18 15:03 Dulcolax TX QDAY PRN Constipation Budesonide 0.5 mg 09/07/18 08:00 09/09/18 19:59 Pulmicort IH 0.5 mg Q12HRT ROXY Administration Bupropion HCl 150 mg 09/07/18 14:00 09/09/18 21:57 Wellbutrin Sr PO 150 mg BID ROXY Administration Dextrose 50 ml 09/08/18 10:58 D50w (25gm) Syringe IV PRN PRN Hypoglycemia Enoxaparin Sodium 40 mg 09/08/18 15:00 09/09/18 09:35 Lovenox SUB-Q 40 mg QDAY@1000 ROXY Administration Fentanyl 50 mcg 09/06/18 20:30 09/10/18 05:29 Sublimaze IV 50 mcg Q10MIN PRN Administration ANALGESIA Haloperidol Lactate 5 mg 09/09/18 14:18 09/10/18 01:42 Haldol IV 5 mg Q6H PRN Administration Agitation Hydrochlorothiazide 25 mg 09/07/18 15:00 09/09/18 09:35 Hctz PO 25 mg QDAY ROXY Administration Hydrocortisone Acetate 1 applic 09/04/18 16:00 09/10/18 06:00 Proctosol-Hc TX 1 applic Q8HR ROXY Administration Hydrophilic Ointment 1 applic 09/06/18 15:34 Vaseline Lip Therapy TP Q2H PRN Dry Lips Ceftriaxone Sodium 1 gm in 50 mls @ 100 mls/hr 09/06/18 10:00 09/09/18 09:34 Rocephin/Ns 1 Gm/50 Ml IV 09/12/18 10:29 100 mls/hr Q24HR ROXY Administration Protocol Fentanyl Citrate 2,000 mcg in 100 mls @ 4.985 mls/hr 09/06/18 21:00 09/09/18 13:00 Fentanyl Drip Premix IV 0 mcg/kg/hr TITR ROXY 0 mls/hr Titration Protocol 1 MCG/KG/HR Propofol 1,000 mg in 100 mls @ 2.991 mls/hr 09/06/18 21:00 09/08/18 11:44 Diprivan 10 Mg/Ml IV 0 mcg/kg/min TITR ROXY 0 mls/hr Titration Protocol 5 MCG/KG/MIN Dextrose 1,000 mls @ 100 mls/hr 09/09/18 07:00 09/09/18 23:44 D5w IV 100 mls/hr DIRECT ROXY Administration Insulin Glargine 10 units 09/09/18 22:00 09/09/18 22:01 Lantus SUB-Q 10 units QHS ROXY Administration Insulin Human Lispro 0 unit 09/08/18 12:00 09/10/18 05:59 Humalog SUB-Q 2 unit Q6HR ROXY Administration Protocol Lactulose 20 gm 09/08/18 18:29 Cephulac PO Q6HR PRN Delerium Lansoprazole 30 mg 09/08/18 10:00 09/09/18 09:35 Prevacid Solutab FEEDTUBE 30 mg QDAY ROXY Administration Magnesium Hydroxide 30 ml 09/02/18 15:03 Milk Of Magnesia PO Q4H PRN Constipation Methylprednisolone Sodium Succinate 60 mg 09/09/18 22:00 09/09/18 21:59 Solu-Medrol IV 60 mg Q12HR ROXY Administration Metoclopramide HCl 10 mg 09/02/18 15:03 Reglan PO Q6H PRN Nausea And Vomiting Multi-Ingred Cream/Lotion/Oil/Oint 1 applic 09/06/18 15:34 Artificial Tears Ophth Oint OU Q4H PRN Dry Eye(s) Ondansetron HCl 4 mg 09/02/18 15:03 Zofran IV Q8H PRN Nausea And Vomiting Promethazine HCl 25 mg 09/02/18 15:03 Phenergan [place] Q6H PRN Nausea And Vomiting Simple Syrup 15 ml 09/07/18 14:01 Simple Syrup FEEDTUBE PRN PRN Hypoglycemia Simple Syrup 30 ml 09/07/18 14:01 Simple Syrup FEEDTUBE PRN PRN Hypoglycemia Sodium Bicarbonate 325 mg 09/07/18 14:01 Sodium Bicarbonate FEEDTUBE PRN PRN For Clogged Feeding Tube Sodium Chloride 10 ml 09/02/18 15:03 Sodium Chloride Flush Syringe 10 Ml IV PRN PRN LINE FLUSH Tamsulosin HCl 0.4 mg 09/07/18 15:00 09/09/18 09:35 Flomax PO 0.4 mg QDAY ROXY Administration
[2018-09-10] MEDS: PULMICORT IH SCH ×2 (07:36→19:24)
[2018-09-10] MEDS: BROVANA NEBU IH SCH ×2 (07:36→19:24)
[2018-09-10 08:49] LABS: Band Neutrophils # (Manual) 0.1 K/mm3; Basophils % (Manual) 0 % (0.0-1.8); Eosinophils % (Manual) 0 % (0.0-4.3); Total Cells Counted 100
[2018-09-10 08:50] LABS: Anisocytosis 1+; Platelet Estimate Consistent w Auto
[2018-09-10] MEDS: ROCEPHIN/NS 1 GM/50 ML 1 GM/50 ML BAG IV SCH (09:13)
[2018-09-10] MEDS: FLOMAX PO SCH (09:14)
[2018-09-10] MEDS: WELLBUTRIN SR PO SCH ×2 (09:14→21:54)
[2018-09-10] MEDS: SOLU-Medrol IV SCH ×2 (09:14→21:54)
[2018-09-10] MEDS: PREVACID SOLUTAB FEEDTUBE SCH (09:15)
[2018-09-10] MEDS: LOVENOX SUB-Q SCH (09:15)
[2018-09-10] MEDS: ZITHROMAX PO SCH (09:15)
[2018-09-10] MEDS: HCTZ PO SCH (09:15)
[2018-09-10] MEDS: D5W 1,000 ML IV SCH (09:16)
[2018-09-10] MEDS ORDERED: CITRATE OF MAGNESIA PO ONE (12:00)
--- NOTE | 2018-09-10 12:48 | Progress Note ---
Assessment and Plan Acute hypoxemic respiratory failure, now on mechanical ventilatory support. Acute chronic obstructive pulmonary disease exacerbation. Pneumonia, right lower lobe present at presentation, possibly aspiration. Obesity. Acute encephalopathy. Possible hyperthyroidism. Elevated serum ammonia, now resolved. Elevated D-dimer with a negative pulmonary embolism workup. Coagulopathy. Hyperglycemia. Acute kidney injury, resolved. Hypernatremia - reduced set rate to 12/min - continue daily SBT's as tolerated - keep Peep at 8 - continue to wean oxygen to keep O2 Sat's > 90% thereafter - placed bite-block as biting ETT - VAP bundle addressed - continue titrate sedation for RASS 0 to -1 - continue seroquel at 75 mg bid - complete zithromax & Rocephin for CAP empiric coverage - neurology evaluation ongoing (Follow EEG report) - continue enteral nutrition as tolerated - continue bronchodilators with pulmonary hygiene per RT - daily SAT's - mobility protocol for pressure ulcer prophylaxis - GI & VTE prophylaxis - glycemic control with SSI for target BG 140 - 180 mg/dL - resume chronic disease medications - continue other care per attending / other consultants ...... re-evaluate in am & prn ... care plan discussed with attending The high probability of a clinically significant, sudden or life threatening deterioration of the [Pulmonary,cardiac & neurologic] system(s) required my full and direct attention, intervention and personal management. The aggregate critical care time was [32] minutes. This time is in addition to time spent performing reported procedures but includes the following: [x] Data Review and interpretation [x] Patient assessment and monitoring of vital signs [x] Documentation Subjective Date of service: 09/10/18 Principal diagnosis: Ac Hypoxemic Resp failure; AE-COPD; Pneumonia (Aspiration); Ac encephalopat Interval history: Patient is seen today for: Acute hypoxemic respiratory failure, now on mechanical ventilatory support; Acute chronic obstructive pulmonary disease exacerbation; Pneumonia, right lower lobe present at presentation, possibly aspiration; Obesity; Acute encephalopathy. Seen and examined at bedside; 24hour events reviewed; nursing and respiratory care staff consulted; no adverse overnight events reported to me; remains on MVS; remains encephalopathic; tenuously tolerating weaning trials; no gross bleeding and no seizures but lethargic Objective Vital Signs - 12hr 09/10/18 09/10/18 09/10/18 01:00 01:16 01:30 Temperature Pulse Rate 70 81 90 Pulse Rate [ Anterior Bilateral Throughout] Pulse Rate [ From Monitor] Respiratory 11 L 11 L 14 Rate Respiratory Rate [Anterior Bilateral Throughout] Blood Pressure 121/71 120/79 130/70 O2 Sat by Pulse 96 97 96 Oximetry 09/10/18 09/10/18 09/10/18 01:46 02:00 02:16 Temperature Pulse Rate 82 87 77 Pulse Rate [ 86 Anterior Bilateral Throughout] Pulse Rate [ From Monitor] Respiratory 15 18 12 Rate Respiratory 18 Rate [Anterior Bilateral Throughout] Blood Pressure 122/72 130/77 127/70 O2 Sat by Pulse 96 95 96 Oximetry 09/10/18 09/10/18 09/10/18 02:30 02:46 03:00 Temperature Pulse Rate 76 75 88 Pulse Rate [ Anterior Bilateral Throughout] Pulse Rate [ From Monitor] Respiratory 13 14 13 Rate Respiratory Rate [Anterior Bilateral Throughout] Blood Pressure 128/75 146/85 124/78 O2 Sat by Pulse 96 96 93 Oximetry 09/10/18 09/10/18 09/10/18 03:16 03:30 03:46 Temperature Pulse Rate 77 79 78 Pulse Rate [ Anterior Bilateral Throughout] Pulse Rate [ From Monitor] Respiratory 14 14 14 Rate Respiratory Rate [Anterior Bilateral Throughout] Blood Pressure 110/67 111/70 105/68 O2 Sat by Pulse 93 96 96 Oximetry 09/10/18 09/10/18 09/10/18 04:00 04:05 04:16 Temperature 98.4 F Pulse Rate 91 H 81 82 Pulse Rate [ Anterior Bilateral Throughout] Pulse Rate [ From Monitor] Respiratory 17 18 Rate Respiratory Rate [Anterior Bilateral Throughout] Blood Pressure 113/73 153/95 113/73 O2 Sat by Pulse 96 96 97 Oximetry 09/10/18 09/10/18 09/10/18 04:30 04:46 05:00 Temperature Pulse Rate 76 76 78 Pulse Rate [ Anterior Bilateral Throughout] Pulse Rate [ From Monitor] Respiratory 14 14 16 Rate Respiratory Rate [Anterior Bilateral Throughout] Blood Pressure 138/76 142/79 121/75 O2 Sat by Pulse 93 95 95 Oximetry 09/10/18 09/10/18 09/10/18 05:16 05:30 05:46 Temperature Pulse Rate 77 72 72 Pulse Rate [ Anterior Bilateral Throughout] Pulse Rate [ From Monitor] Respiratory 11 L 12 13 Rate Respiratory Rate [Anterior Bilateral Throughout] Blood Pressure 116/72 112/70 113/69 O2 Sat by Pulse 94 93 93 Oximetry 09/10/18 09/10/18 09/10/18 06:00 06:16 06:30 Temperature Pulse Rate 77 69 69 Pulse Rate [ Anterior Bilateral Throughout] Pulse Rate [ From Monitor] Respiratory 12 13 12 Rate Respiratory Rate [Anterior Bilateral Throughout] Blood Pressure 99/61 99/61 105/64 O2 Sat by Pulse 95 94 Oximetry 09/10/18 09/10/18 09/10/18 06:46 07:00 07:16 Temperature Pulse Rate 69 68 66 Pulse Rate [ Anterior Bilateral Throughout] Pulse Rate [ From Monitor] Respiratory 17 15 15 Rate Respiratory Rate [Anterior Bilateral Throughout] Blood Pressure 112/70 101/64 102/62 O2 Sat by Pulse 96 93 95 Oximetry 09/10/18 09/10/18 09/10/18 07:28 07:30 07:32 Temperature Pulse Rate 70 70 69 Pulse Rate [ Anterior Bilateral Throughout] Pulse Rate [ From Monitor] Respiratory 14 12 Rate Respiratory Rate [Anterior Bilateral Throughout] Blood Pressure 143/85 100/65 143/85 O2 Sat by Pulse 97 97 97 Oximetry 09/10/18 09/10/18 09/10/18 07:37 07:46 07:50 Temperature Pulse Rate 73 Pulse Rate [ 70 71 Anterior Bilateral Throughout] Pulse Rate [ From Monitor] Respiratory 10 L Rate Respiratory 12 14 Rate [Anterior Bilateral Throughout] Blood Pressure 125/75 O2 Sat by Pulse 99 Oximetry 09/10/18 09/10/18 09/10/18 07:51 08:00 08:16 Temperature Pulse Rate 79 75 74 Pulse Rate [ Anterior Bilateral Throughout] Pulse Rate [ 84 From Monitor] Respiratory 16 17 Rate Respiratory Rate [Anterior Bilateral Throughout] Blood Pressure 134/82 125/72 142/102 O2 Sat by Pulse 98 95 97 Oximetry 09/10/18 09/10/18 09/10/18 08:30 08:46 08:50 Temperature 97.4 F L Pulse Rate 87 77 Pulse Rate [ Anterior Bilateral Throughout] Pulse Rate [ From Monitor] Respiratory 12 17 Rate Respiratory Rate [Anterior Bilateral Throughout] Blood Pressure 149/95 149/95 O2 Sat by Pulse 97 96 Oximetry 09/10/18 09/10/18 09/10/18 09:00 09:16 09:30 Temperature Pulse Rate 78 75 85 Pulse Rate [ Anterior Bilateral Throughout] Pulse Rate [ From Monitor] Respiratory 15 18 20 Rate Respiratory Rate [Anterior Bilateral Throughout] Blood Pressure 118/74 118/74 115/67 O2 Sat by Pulse 93 96 99 Oximetry 09/10/18 09/10/18 09/10/18 09:46 10:00 10:16 Temperature Pulse Rate 71 68 65 Pulse Rate [ Anterior Bilateral Throughout] Pulse Rate [ From Monitor] Respiratory 16 16 17 Rate Respiratory Rate [Anterior Bilateral Throughout] Blood Pressure 101/61 102/62 99/59 O2 Sat by Pulse 95 94 96 Oximetry 09/10/18 09/10/18 09/10/18 10:30 10:46 10:50 Temperature Pulse Rate 67 67 84 Pulse Rate [ Anterior Bilateral Throughout] Pulse Rate [ From Monitor] Respiratory 14 16 16 Rate Respiratory Rate [Anterior Bilateral Throughout] Blood Pressure 100/64 102/64 162/94 O2 Sat by Pulse 96 96 100 Oximetry 09/10/18 09/10/18 09/10/18 11:00 11:16 11:30 Temperature Pulse Rate 68 70 83 Pulse Rate [ Anterior Bilateral Throughout] Pulse Rate [ From Monitor] Respiratory 14 15 18 Rate Respiratory Rate [Anterior Bilateral Throughout] Blood Pressure 145/107 129/74 139/82 O2 Sat by Pulse 96 97 96 Oximetry 09/10/18 09/10/18 09/10/18 11:45 12:00 12:45 Temperature 97.4 F L Pulse Rate 67 81 Pulse Rate [ Anterior Bilateral Throughout] Pulse Rate [ 78 From Monitor] Respiratory 13 14 Rate Respiratory Rate [Anterior Bilateral Throughout] Blood Pressure 140/79 137/92 O2 Sat by Pulse 98 96 Oximetry Constitutional: appears uncomfortable, other (elderly looking CM, normocephalica nd atraumatic with mildly increased resp effort on MVS) Eyes: non-icteric ENT: oropharynx moist, other (ETT 23 cm SHADIA) Neck: supple, no lymphadenopathy, no JVD, other (large neck circumference) Effort: mildly labored Ascultation: Bilateral: diminished breath sounds, rhonchi Percussion: Bilateral: not dull Cardiovascular: regular rate and rhythm Gastrointestinal: normoactive bowel sounds, soft, non-tender, non-distended Integumentary: normal Extremities: no cyanosis, no edema, pink and warm, pulses normal Neurologic: non-focal exam, pupils equal and round, motor strength normal and, other (encephalopathic) Psychiatric: other (unable to assess) CBC and BMP: 09/17/18 04:52 09/17/18 04:52 ABG, PT/INR, D-dimer: ABG POC ABG pH 7.267 (7.35-7.45) L 09/09/18 04:33 POC ABG pCO2 76.6 (35-45) H 09/09/18 04:33 POC ABG pO2 69 (80-105) L 09/09/18 04:33 POC ABG HCO3 35.0 09/09/18 04:33 POC ABG Total CO2 37 09/09/18 04:33 POC ABG O2 Sat 90 09/09/18 04:33 PT/INR, D-dimer PT 21.8 Sec. (12.2-14.9) H 09/03/18 11:26 INR 1.86 (0.87-1.13) H 09/03/18 11:26 D-Dimer 4180.35 ng/mlDDU (0-234) H 09/02/18 12:35 Abnormal lab findings: Abnormal Labs 09/02/18 09/02/18 09/02/18 12:35 12:35 12:35 RBC 6.15 H Hgb 18.7 H Hct 57.7 H MCV RDW 15.5 H Plt Count Lymph % (Auto) 8.8 L Lymph # 0.9 L Seg Neutrophils % 83.2 H Seg Neuts % (Manual) Lymphocytes % (Manual) Seg Neutrophils # 8.9 H Lymphocytes # (Manual) PT 20.8 H INR 1.74 H D-Dimer 4180.35 H POC ABG pH POC ABG pCO2 POC ABG pO2 Sodium Potassium Chloride Carbon Dioxide BUN Creatinine Glucose POC Glucose Lactic Acid Calcium Total Bilirubin Direct Bilirubin AST Ammonia C-Reactive Protein Total Protein Albumin Triglycerides HDL Cholesterol Lipase TSH Free T4 Urine WBC (Auto) Salicylates < 0.3 L Acetaminophen 09/02/18 09/02/18 09/02/18 12:35 12:35 12:35 RBC Hgb Hct MCV RDW Plt Count Lymph % (Auto) Lymph # Seg Neutrophils % Seg Neuts % (Manual) Lymphocytes % (Manual) Seg Neutrophils # Lymphocytes # (Manual) PT INR D-Dimer POC ABG pH POC ABG pCO2 POC ABG pO2 Sodium Potassium Chloride Carbon Dioxide BUN Creatinine Glucose POC Glucose 167 H Lactic Acid 3.20 H* Calcium Total Bilirubin Direct Bilirubin AST Ammonia C-Reactive Protein Total Protein Albumin Triglycerides HDL Cholesterol Lipase TSH Free T4 Urine WBC (Auto) Salicylates Acetaminophen < 5.0 L 09/02/18 09/02/18 09/02/18 13:36 14:40 16:45 RBC Hgb Hct MCV RDW Plt Count Lymph % (Auto) Lymph # Seg Neutrophils % Seg Neuts % (Manual) Lymphocytes % (Manual) Seg Neutrophils # Lymphocytes # (Manual) PT INR D-Dimer POC ABG pH POC ABG pCO2 POC ABG pO2 Sodium 159 H Potassium Chloride 114.7 H Carbon Dioxide BUN 90 H Creatinine Glucose 172 H POC Glucose Lactic Acid 2.30 H* Calcium 10.8 H Total Bilirubin Direct Bilirubin 0.3 H AST Ammonia C-Reactive Protein Total Protein Albumin 2.6 L Triglycerides HDL Cholesterol Lipase 81 H TSH < 0.005 L Free T4 2.40 H Urine WBC (Auto) Salicylates Acetaminophen 09/03/18 09/03/18 09/03/18 11:26 11:26 11:26 RBC Hgb Hct MCV RDW Plt Count Lymph % (Auto) Lymph # Seg Neutrophils % Seg Neuts % (Manual) Lymphocytes % (Manual) Seg Neutrophils # Lymphocytes # (Manual) PT 21.8 H INR 1.86 H D-Dimer POC ABG pH POC ABG pCO2 POC ABG pO2 Sodium 160 H Potassium Chloride 122.6 H Carbon Dioxide BUN 69 H Creatinine Glucose 127 H POC Glucose Lactic Acid Calcium Total Bilirubin Direct Bilirubin AST Ammonia C-Reactive Protein Total Protein Albumin 2.1 L Triglycerides HDL Cholesterol Lipase TSH Free T4 Urine WBC (Auto) Salicylates Acetaminophen 09/03/18 09/03/18 09/03/18 11:26 15:39 20:23 RBC Hgb Hct MCV RDW Plt Count Lymph % (Auto) Lymph # Seg Neutrophils % Seg Neuts % (Manual) Lymphocytes % (Manual) Seg Neutrophils # Lymphocytes # (Manual) PT INR D-Dimer POC ABG pH POC ABG pCO2 POC ABG pO2 Sodium 160 H 160 H Potassium Chloride Carbon Dioxide BUN Creatinine Glucose POC Glucose Lactic Acid Calcium Total Bilirubin Direct Bilirubin AST Ammonia 75.0 H C-Reactive Protein Total Protein Albumin Triglycerides HDL Cholesterol Lipase TSH Free T4 Urine WBC (Auto) Salicylates Acetaminophen 09/03/18 09/04/18 09/04/18 Unknown 02:38 05:20 RBC Hgb Hct MCV RDW Plt Count Lymph % (Auto) Lymph # Seg Neutrophils % Seg Neuts % (Manual) Lymphocytes % (Manual) Seg Neutrophils # Lymphocytes # (Manual) PT INR D-Dimer POC ABG pH POC ABG pCO2 POC ABG pO2 Sodium 160 H 166 H* Potassium Chloride 129.2 H Carbon Dioxide BUN 57 H Creatinine Glucose 137 H POC Glucose Lactic Acid Calcium Total Bilirubin Direct Bilirubin AST Ammonia C-Reactive Protein Total Protein 5.8 L Albumin 2.7 L Triglycerides 150 H HDL Cholesterol 21 L Lipase TSH Free T4 Urine WBC (Auto) Salicylates Acetaminophen 09/04/18 09/04/18 09/04/18 05:20 09:11 13:35 RBC 5.12 H Hgb 15.5 H D 15.6 H Hct 48.0 H D 48.1 H MCV RDW 15.9 H Plt Count Lymph % (Auto) 11.8 L Lymph # 0.8 L Seg Neutrophils % 80.1 H Seg Neuts % (Manual) Lymphocytes % (Manual) Seg Neutrophils # Lymphocytes # (Manual) PT INR D-Dimer POC ABG pH POC ABG pCO2 POC ABG pO2 Sodium 166 H* Potassium Chloride Carbon Dioxide BUN Creatinine Glucose POC Glucose Lactic Acid Calcium Total Bilirubin Direct Bilirubin AST Ammonia C-Reactive Protein Total Protein Albumin Triglycerides HDL Cholesterol Lipase TSH Free T4 Urine WBC (Auto) Salicylates Acetaminophen 09/04/18 09/04/18 09/04/18 13:35 21:04 21:04 RBC Hgb 16.9 H Hct 58.3 H D MCV RDW Plt Count Lymph % (Auto) Lymph # Seg Neutrophils % Seg Neuts % (Manual) Lymphocytes % (Manual) Seg Neutrophils # Lymphocytes # (Manual) PT INR D-Dimer POC ABG pH POC ABG pCO2 POC ABG pO2 Sodium 164 H* 159 H Potassium Chloride Carbon Dioxide BUN Creatinine Glucose POC Glucose Lactic Acid Calcium Total Bilirubin Direct Bilirubin AST Ammonia C-Reactive Protein Total Protein Albumin Triglycerides HDL Cholesterol Lipase TSH Free T4 Urine WBC (Auto) Salicylates Acetaminophen 09/05/18 09/05/18 09/05/18 01:11 02:51 03:17 RBC Hgb Hct MCV RDW Plt Count Lymph % (Auto) Lymph # Seg Neutrophils % Seg Neuts % (Manual) Lymphocytes % (Manual) Seg Neutrophils # Lymphocytes # (Manual) PT INR D-Dimer POC ABG pH 7.340 L POC ABG pCO2 57.8 H POC ABG pO2 74 L Sodium 152 H Potassium Chloride Carbon Dioxide BUN Creatinine Glucose POC Glucose 116 H Lactic Acid Calcium Total Bilirubin Direct Bilirubin AST Ammonia C-Reactive Protein Total Protein Albumin Triglycerides HDL Cholesterol Lipase TSH Free T4 Urine WBC (Auto) Salicylates Acetaminophen 09/05/18 09/05/18 09/05/18 07:45 10:34 15:21 RBC Hgb Hct MCV RDW Plt Count Lymph % (Auto) Lymph # Seg Neutrophils % Seg Neuts % (Manual) Lymphocytes % (Manual) Seg Neutrophils # Lymphocytes # (Manual) PT INR D-Dimer POC ABG pH POC ABG pCO2 POC ABG pO2 Sodium 156 H 153 H Potassium Chloride Carbon Dioxide BUN Creatinine Glucose POC Glucose Lactic Acid Calcium Total Bilirubin Direct Bilirubin AST Ammonia 61.0 H C-Reactive Protein Total Protein Albumin Triglycerides HDL Cholesterol Lipase TSH Free T4 Urine WBC (Auto) Salicylates Acetaminophen 09/06/18 09/06/18 09/06/18 05:10 05:10 08:43 RBC 5.06 H Hgb Hct 47.8 H D MCV RDW 15.3 H Plt Count Lymph % (Auto) Lymph # Seg Neutrophils % Seg Neuts % (Manual) Lymphocytes % (Manual) Seg Neutrophils # Lymphocytes # (Manual) PT INR D-Dimer POC ABG pH POC ABG pCO2 POC ABG pO2 Sodium 155 H 150 H Potassium Chloride 117.0 H Carbon Dioxide BUN 36 H Creatinine Glucose 143 H POC Glucose Lactic Acid Calcium Total Bilirubin Direct Bilirubin AST Ammonia C-Reactive Protein Total Protein Albumin Triglycerides HDL Cholesterol Lipase TSH Free T4 Urine WBC (Auto) Salicylates Acetaminophen 09/06/18 09/06/18 09/06/18 13:21 15:11 16:23 RBC Hgb Hct MCV RDW Plt Count Lymph % (Auto) Lymph # Seg Neutrophils % Seg Neuts % (Manual) Lymphocytes % (Manual) Seg Neutrophils # Lymphocytes # (Manual) PT INR D-Dimer POC ABG pH POC ABG pCO2 49.1 H POC ABG pO2 107 H Sodium 151 H Potassium Chloride Carbon Dioxide BUN Creatinine Glucose POC Glucose 120 H Lactic Acid Calcium Total Bilirubin Direct Bilirubin AST Ammonia C-Reactive Protein Total Protein Albumin Triglycerides HDL Cholesterol Lipase TSH Free T4 Urine WBC (Auto) Salicylates Acetaminophen 09/06/18 09/07/18 09/07/18 21:58 00:25 02:49 RBC 5.32 H Hgb 16.1 H Hct 50.2 H MCV 95 H RDW 15.6 H Plt Count Lymph % (Auto) Lymph # Seg Neutrophils % Seg Neuts % (Manual) Lymphocytes % (Manual) Seg Neutrophils # Lymphocytes # (Manual) PT INR D-Dimer POC ABG pH POC ABG pCO2 POC ABG pO2 Sodium 150 H Potassium Chloride Carbon Dioxide BUN Creatinine Glucose POC Glucose Lactic Acid Calcium Total Bilirubin Direct Bilirubin AST Ammonia C-Reactive Protein 9.00 H Total Protein Albumin Triglycerides HDL Cholesterol Lipase TSH Free T4 Urine WBC (Auto) Salicylates Acetaminophen 09/07/18 09/07/18 09/07/18 02:49 03:43 09:17 RBC Hgb Hct MCV RDW Plt Count Lymph % (Auto) Lymph # Seg Neutrophils % Seg Neuts % (Manual) Lymphocytes % (Manual) Seg Neutrophils # Lymphocytes # (Manual) PT INR D-Dimer POC ABG pH POC ABG pCO2 46.5 H POC ABG pO2 Sodium 149 H 155 H Potassium 5.2 H D Chloride 116.1 H Carbon Dioxide 21 L BUN 47 H Creatinine Glucose 122 H POC Glucose Lactic Acid Calcium Total Bilirubin 1.80 H Direct Bilirubin AST 83 H Ammonia C-Reactive Protein Total Protein Albumin 1.8 L Triglycerides HDL Cholesterol Lipase TSH Free T4 Urine WBC (Auto) Salicylates Acetaminophen 09/07/18 09/08/18 09/08/18 16:02 00:14 00:51 RBC Hgb Hct MCV RDW Plt Count Lymph % (Auto) Lymph # Seg Neutrophils % Seg Neuts % (Manual) Lymphocytes % (Manual) Seg Neutrophils # Lymphocytes # (Manual) PT INR D-Dimer POC ABG pH POC ABG pCO2 POC ABG pO2 Sodium 156 H 154 H Potassium Chloride Carbon Dioxide BUN Creatinine Glucose POC Glucose Lactic Acid Calcium Total Bilirubin Direct Bilirubin AST Ammonia C-Reactive Protein Total Protein Albumin Triglycerides HDL Cholesterol Lipase TSH Free T4 Urine WBC (Auto) 41.0 H Salicylates Acetaminophen 09/08/18 09/08/18 09/08/18 04:22 04:22 04:46 RBC Hgb Hct MCV 95 H RDW 15.3 H Plt Count Lymph % (Auto) Lymph # Seg Neutrophils % Seg Neuts % (Manual) Lymphocytes % (Manual) Seg Neutrophils # Lymphocytes # (Manual) PT INR D-Dimer POC ABG pH POC ABG pCO2 55.3 H POC ABG pO2 77 L Sodium 153 H Potassium 3.5 L D Chloride 114.8 H Carbon Dioxide BUN 69 H Creatinine Glucose 277 H POC Glucose Lactic Acid Calcium Total Bilirubin Direct Bilirubin AST 44 H Ammonia C-Reactive Protein Total Protein 5.6 L Albumin 2.4 L Triglycerides HDL Cholesterol Lipase TSH Free T4 Urine WBC (Auto) Salicylates Acetaminophen 09/08/18 09/08/18 09/08/18 08:40 12:03 15:43 RBC Hgb Hct MCV RDW Plt Count Lymph % (Auto) Lymph # Seg Neutrophils % Seg Neuts % (Manual) Lymphocytes % (Manual) Seg Neutrophils # Lymphocytes # (Manual) PT INR D-Dimer POC ABG pH POC ABG pCO2 POC ABG pO2 Sodium 154 H 152 H Potassium Chloride Carbon Dioxide BUN Creatinine Glucose POC Glucose 186 H Lactic Acid Calcium Total Bilirubin Direct Bilirubin AST Ammonia C-Reactive Protein Total Protein Albumin Triglycerides HDL Cholesterol Lipase TSH Free T4 Urine WBC (Auto) Salicylates Acetaminophen 09/08/18 09/08/18 09/09/18 17:57 23:54 04:01 RBC Hgb Hct MCV 95 H RDW 15.3 H Plt Count 130 L Lymph % (Auto) Lymph # Seg Neutrophils % Seg Neuts % (Manual) Lymphocytes % (Manual) Seg Neutrophils # Lymphocytes # (Manual) PT INR D-Dimer POC ABG pH POC ABG pCO2 POC ABG pO2 Sodium Potassium Chloride Carbon Dioxide BUN Creatinine Glucose POC Glucose 252 H 297 H Lactic Acid Calcium Total Bilirubin Direct Bilirubin AST Ammonia C-Reactive Protein Total Protein Albumin Triglycerides HDL Cholesterol Lipase TSH Free T4 Urine WBC (Auto) Salicylates Acetaminophen 09/09/18 09/09/18 09/09/18 04:01 04:33 05:32 RBC Hgb Hct MCV RDW Plt Count Lymph % (Auto) Lymph # Seg Neutrophils % Seg Neuts % (Manual) Lymphocytes % (Manual) Seg Neutrophils # Lymphocytes # (Manual) PT INR D-Dimer POC ABG pH 7.267 L POC ABG pCO2 76.6 H POC ABG pO2 69 L Sodium 150 H Potassium Chloride 110.9 H Carbon Dioxide 32 H BUN 62 H Creatinine Glucose 220 H POC Glucose 196 H Lactic Acid Calcium 10.3 H Total Bilirubin Direct Bilirubin AST Ammonia C-Reactive Protein Total Protein Albumin Triglycerides HDL Cholesterol Lipase TSH Free T4 Urine WBC (Auto) Salicylates Acetaminophen 09/09/18 09/09/18 09/09/18 11:40 17:57 23:36 RBC Hgb Hct MCV RDW Plt Count Lymph % (Auto) Lymph # Seg Neutrophils % Seg Neuts % (Manual) Lymphocytes % (Manual) Seg Neutrophils # Lymphocytes # (Manual) PT INR D-Dimer POC ABG pH POC ABG pCO2 POC ABG pO2 Sodium Potassium Chloride Carbon Dioxide BUN Creatinine Glucose POC Glucose 217 H 172 H 131 H Lactic Acid Calcium Total Bilirubin Direct Bilirubin AST Ammonia C-Reactive Protein Total Protein Albumin Triglycerides HDL Cholesterol Lipase TSH Free T4 Urine WBC (Auto) Salicylates Acetaminophen 09/10/18 09/10/18 09/10/18 05:07 05:07 05:51 RBC Hgb Hct MCV RDW Plt Count 115 L Lymph % (Auto) Lymph # Seg Neutrophils % Seg Neuts % (Manual) 95.0 H Lymphocytes % (Manual) 3.0 L Seg Neutrophils # Lymphocytes # (Manual) 0.2 L PT INR D-Dimer POC ABG pH POC ABG pCO2 POC ABG pO2 Sodium 146 H Potassium Chloride Carbon Dioxide 33 H BUN 46 H Creatinine 0.7 L Glucose 174 H POC Glucose 169 H Lactic Acid Calcium 10.3 H Total Bilirubin Direct Bilirubin AST Ammonia C-Reactive Protein Total Protein Albumin Triglycerides HDL Cholesterol Lipase TSH Free T4 Urine WBC (Auto) Salicylates Acetaminophen Chest x-ray: image reviewed Allied health notes reviewed: nursing
[2018-09-10] MEDS: COLACE FEEDTUBE SCH ×2 (14:35→21:52)
--- NOTE | 2018-09-10 16:13 | Progress Note ---
Assessment and Plan Assessment and plan: 68 YO Male with Obesity Hypoventilation, COPD presents to ED for evaluation. Pt is confused, lethargic and unable to provide history. Pt history provided by his brother who is at bedside during exam and interview. As per brother, the patient has not returned phone calls over the past 4 days. As a result, the brother went to the home but the patient did not answer the door. Law Enforcement notified, and entry into the home was obtained. The patient was found down and covered in his own feces. Pt exhibited slurred speech, confusion. EMS notified and upon arrival, the patient was found to have a neurologic deficit. A code stroke was called, and the patient was transported to [facility]. Pt seen and evaluated in ED and found to have evidence of CVA as well as SIRS, Acidosis, and Encephalopathy. Pt admitted to telemetry and initiated on CVA protocol. He was intubated with concern for aspiration. Neurology consulted. Acute Metabolic encephalopathy Acute Hypoxic Respiratory failure Hypernatremia Rectal Bleed. Aspiration Pneumonia Obesity Hypoventilation syndrome ETOH use disorder hYPOTHYRODISIM Moderate Protien calorie Malnutrition Secondary Coagulopathy ?UNDERLYING LIVER DISEASE VS IATROGENIC MEDICATION Sepsis Tobacco use disorder per hx Plan Continue supportive care, s/p Intubation Continue aspiration precautions Manufacturing Planner input appreciated Family updated Home meds reviewed, Nurse to input in system Continue free water and lactulose Nephrology consult to assist Discontinue ASA. NO CVA and now with rectal bleed. Seizure precautions Continue Empiric abx Aspiration precautions DVT/GI prophy Call placed to family to obtain more clinical information Still awaiting home meds Requested records from [facility] still pending. Discussed with Nursing staff The high probability of a clinically significant, sudden or life threatening deterioration of the [pulmonary, hotel service supervisor] system(s) required my full and direct attention, intervention and personal management. The aggregate critical care t stephen was [45] minutes. This time is in addition to time spent performing reported procedures but includes the following: [x] Data Review and interpretation [x] Patient assessment and monitoring of vital signs [x] Documentation [x] Medication orders and management History Interval history: Patient was seen and evaluated this morning, patient was intubated and on mechanical ventilation. Hospitalist Physical - Physical exam Narrative exam: Patient is intubated and mechanical ventilation. The patient appeared well nourished and normally developed. Vital signs as documented. Head exam is unremarkable. No scleral icterus . Neck is without jugular venous distension, thyromegaly, or carotid bruits. Lungs are clear to auscultation. Cardiac exam reveals regular rate and Rhythm. First and second heart sounds normal. No murmurs, rubs or gallops. Abdominal exam reveals normal bowel sounds, no masses, no organomegaly and no aortic enlargement. Extremities are nonedematous and both femoral and pedal pulses are normal. TRANSFORMER BUILDER: Sedated. - Constitutional Vitals: Temp Pulse Resp BP Pulse Ox 97.4 F L 70 18 106/66 96 09/10/18 12:45 09/10/18 15:15 09/10/18 15:15 09/10/18 15:15 09/10/18 15:15 General appearance: Present: mild distress, obese, disheveled Results - Labs CBC & Chem 7: 09/10/18 05:07 09/10/18 05:07 Labs: Laboratory Last Values WBC 8.0 K/mm3 (4.5-11.0) 09/10/18 05:07 RBC 4.72 M/mm3 (3.65-5.03) 09/10/18 05:07 Hgb 14.0 gm/dl (11.8-15.2) 09/10/18 05:07 Hct 43.7 % (35.5-45.6) 09/10/18 05:07 MCV 93 fl (84-94) 09/10/18 05:07 MCH 30 pg (28-32) 09/10/18 05:07 MCHC 32 % (32-34) 09/10/18 05:07 RDW 14.9 % (13.2-15.2) 09/10/18 05:07 Plt Count 115 K/mm3 (140-440) L 09/10/18 05:07 Lymph % (Auto) 11.8 % (13.4-35.0) L 09/04/18 05:20 [place] % (Auto) 6.8 % (0.0-7.3) 09/04/18 05:20 Eos % (Auto) 1.0 % (0.0-4.3) 09/04/18 05:20 Baso % (Auto) 0.3 % (0.0-1.8) 09/04/18 05:20 Lymph # 0.8 K/mm3 (1.2-5.4) L 09/04/18 05:20 Jun[place] # 0.5 K/mm3 (0.0-0.8) 09/04/18 05:20 Eos # 0.1 K/mm3 (0.0-0.4) 09/04/18 05:20 Baso # 0.0 K/mm3 (0.0-0.1) 09/04/18 05:20 Add Manual Diff Complete 09/10/18 05:07 Total Counted 100 09/10/18 05:07 Seg Neutrophils % Web Press Operator Helper Offset 09/10/18 05:07 Seg Neuts % (Manual) 95.0 % (40.0-70.0) H 09/10/18 05:07 Band Neutrophils % 1.0 % 09/10/18 05:07 Lymphocytes % (Manual) 3.0 % (13.4-35.0) L 09/10/18 05:07 Reactive Lymphs % (Man) 0 % 09/10/18 05:07 Monocytes % (Manual) 1.0 % (0.0-7.3) 09/10/18 05:07 Eosinophils % (Manual) 0 % (0.0-4.3) 09/10/18 05:07 Basophils % (Manual) 0 % (0.0-1.8) 09/10/18 05:07 Metamyelocytes % 0 % 09/10/18 05:07 Myelocytes % 0 % 09/10/18 05:07 Promyelocytes % 0 % 09/10/18 05:07 Blast Cells % 0 % 09/10/18 05:07 Nucleated RBC % Not Reportable 09/10/18 05:07 Seg Neutrophils # 5.5 K/mm3 (1.8-7.7) 09/04/18 05:20 Seg Neutrophils # Man 7.6 K/mm3 (1.8-7.7) 09/10/18 05:07 Band Neutrophils # 0.1 K/mm3 09/10/18 05:07 Lymphocytes # (Manual) 0.2 K/mm3 (1.2-5.4) L 09/10/18 05:07 Abs React Lymphs (Man) 0.0 K/mm3 09/10/18 05:07 Monocytes # (Manual) 0.1 K/mm3 (0.0-0.8) 09/10/18 05:07 Eosinophils # (Manual) 0.0 K/mm3 (0.0-0.4) 09/10/18 05:07 Basophils # (Manual) 0.0 K/mm3 (0.0-0.1) 09/10/18 05:07 Metamyelocytes # 0.0 K/mm3 09/10/18 05:07 Myelocytes # 0.0 K/mm3 09/10/18 05:07 Promyelocytes # 0.0 K/mm3 09/10/18 05:07 Blast Cells # 0.0 K/mm3 09/10/18 05:07 WBC Morphology Not Reportable 09/10/18 05:07 Hypersegmented Neuts Not Reportable 09/10/18 05:07 Hyposegmented Neuts Not Reportable 09/10/18 05:07 Hypogranular Neuts Not Reportable 09/10/18 05:07 Smudge Cells Not Reportable 09/10/18 05:07 Toxic Granulation Not Reportable 09/10/18 05:07 Toxic Vacuolation Not Reportable 09/10/18 05:07 Dohle Bodies Not Reportable 09/10/18 05:07 Pelger-Huet Anomaly Not Reportable 09/10/18 05:07 Tony Rods Not Reportable 09/10/18 05:07 Platelet Estimate Consistent w auto 09/10/18 05:07 Clumped Platelets Not Reportable 09/10/18 05:07 Plt Clumps, EDTA Not Reportable 09/10/18 05:07 Large Platelets Not Reportable 09/10/18 05:07 Giant Platelets Not Reportable 09/10/18 05:07 Platelet Satelliting Not Reportable 09/10/18 05:07 Plt Morphology Comment Not Reportable 09/10/18 05:07 RBC Morphology Not Reportable 09/10/18 05:07 Dimorphic RBCs Not Reportable 09/10/18 05:07 Polychromasia 1+ 09/10/18 05:07 Hypochromasia Not Reportable 09/10/18 05:07 Poikilocytosis Not Reportable 09/10/18 05:07 Anisocytosis 1+ 09/10/18 05:07 Microcytosis Not Reportable 09/10/18 05:07 Macrocytosis Not Reportable 09/10/18 05:07 Spherocytes Not Reportable 09/10/18 05:07 Pappenheimer Bodies Not Reportable 09/10/18 05:07 Sickle Cells Not Reportable 09/10/18 05:07 Target Cells Not Reportable 09/10/18 05:07 Tear Drop Cells Not Reportable 09/10/18 05:07 Ovalocytes Not Reportable 09/10/18 05:07 Helmet Cells Not Reportable 09/10/18 05:07 [place] Bodies Not Reportable 09/10/18 05:07 [place] Rings Not Reportable 09/10/18 05:07 Downs Cells Not Reportable 09/10/18 05:07 Bite Cells Not Reportable 09/10/18 05:07 Crenated Cell Not Reportable 09/10/18 05:07 Elliptocytes Not Reportable 09/10/18 05:07 Acanthocytes (Spur) Not Reportable 09/10/18 05:07 Rouleaux Not Reportable 09/10/18 05:07 Hemoglobin C Crystals Not Reportable 09/10/18 05:07 Schistocytes Not Reportable 09/10/18 05:07 Malaria parasites Not Reportable 09/10/18 05:07 Tejinder Bodies Not Reportable 09/10/18 05:07 Hem Pathologist Commnt No 09/10/18 05:07 PT 21.8 Sec. (12.2-14.9) H 09/03/18 11:26 INR 1.86 (0.87-1.13) H 09/03/18 11:26 APTT 32.5 Sec. (24.2-36.6) 09/02/18 12:35 D-Dimer 4180.35 ng/mlDDU (0-234) H 09/02/18 12:35 POC ABG pH 7.372 (7.35-7.45) 09/10/18 15:02 POC ABG pCO2 62.6 (35-45) H 09/10/18 15:02 POC ABG pO2 81 (80-105) 09/10/18 15:02 POC ABG HCO3 36.4 09/10/18 15:02 POC ABG Total CO2 38 09/10/18 15:02 POC ABG O2 Sat 95 09/10/18 15:02 POC ABG Base Excess 11 09/10/18 15:02 FiO2 40 % 09/10/18 15:02 Sodium 146 mmol/L (137-145) H 09/10/18 05:07 Potassium 4.3 mmol/L (3.6-5.0) 09/10/18 05:07 Chloride 101.9 mmol/L (98-107) 09/10/18 05:07 Carbon Dioxide 33 mmol/L (22-30) H 09/10/18 05:07 Anion Gap 15 mmol/L 09/10/18 05:07 BUN 46 mg/dL (9-20) H 09/10/18 05:07 Creatinine 0.7 mg/dL (0.8-1.5) L 09/10/18 05:07 Estimated GFR > 60 ml/min 09/10/18 05:07 BUN/Creatinine Ratio 66 % 09/10/18 05:07 Glucose 174 mg/dL (75-100) H 09/10/18 05:07 POC Glucose 240 (70-105) H 09/10/18 14:25 Lactic Acid 1.40 mmol/L (0.7-2.0) 09/06/18 21:58 Calcium 10.3 mg/dL (8.4-10.2) H 09/10/18 05:07 Total Bilirubin 0.70 mg/dL (0.1-1.2) 09/08/18 04:22 Direct Bilirubin < 0.2 mg/dL (0-0.2) 09/03/18 11:26 Indirect Bilirubin 0.3 mg/dL 09/02/18 13:36 AST 44 units/L (5-40) H 09/08/18 04:22 ALT 33 units/L (7-56) 09/08/18 04:22 Alkaline Phosphatase 80 units/L (35-129) 09/08/18 04:22 Ammonia 58.0 umol/L (25-60) 09/06/18 05:10 Total Creatine Kinase 98 units/L (55-170) 09/02/18 13:36 Troponin T 0.018 ng/mL (0.00-0.029) 09/02/18 13:36 C-Reactive Protein 9.00 mg/dL (0.00-1.30) H 09/06/18 21:58 NT-Pro-B Natriuret Pep 873.7 pg/mL (0-900) 09/02/18 13:36 Total Protein 5.6 g/dL (6.3-8.2) L 09/08/18 04:22 Albumin 2.4 g/dL (3.9-5) L 09/08/18 04:22 Albumin/Globulin Ratio 0.8 % 09/08/18 04:22 Triglycerides 150 mg/dL (2-149) H 09/03/18 Unknown Cholesterol 116 mg/dL (50-199) 09/03/18 Unknown LDL Cholesterol Direct 69 mg/dL (50-130) 09/03/18 Unknown HDL Cholesterol 21 mg/dL (40-59) L 09/03/18 Unknown Cholesterol/HDL Ratio 5.52 % 09/03/18 Unknown Lipase 81 units/L (13-60) H 09/02/18 13:36 TSH < 0.005 mlU/mL (0.270-4.200) L 09/02/18 16:45 Free T4 2.40 ng/dL (0.76-1.46) H 09/02/18 16:45 Urine Color [place] (Yellow) 09/08/18 00:14 Urine Turbidity Cloudy (Clear) 09/08/18 00:14 Urine pH 5.0 (5.0-7.0) 09/08/18 00:14 Ur Specific [place] 1.019 (1.003-1.030) 09/08/18 00:14 Urine Protein 30 mg/dl mg/dL (Negative) 09/08/18 00:14 Urine Glucose (UA) Neg mg/dL (Negative) 09/08/18 00:14 Urine Ketones Neg mg/dL (Negative) 09/08/18 00:14 Urine Blood Lg (Negative) 09/08/18 00:14 Urine Nitrite Neg (Negative) 09/08/18 00:14 Urine Bilirubin Neg (Negative) 09/08/18 00:14 Urine Urobilinogen 4.0 mg/dL (<2.0) 09/08/18 00:14 Ur Leukocyte Esterase Neg (Negative) 09/08/18 00:14 Urine WBC (Auto) 41.0 /HPF (0.0-6.0) H 09/08/18 00:14 Urine RBC (Auto) > 182.0 /HPF (0.0-6.0) 09/08/18 00:14 U Epithel Cells (Auto) 8.0 /HPF (0-13.0) 09/08/18 00:14 Urine Bacteria (Auto) 2+ /HPF (Negative) 09/08/18 00:14 Ur Transition Epith Cell 1 /HPF 09/08/18 00:14 Amorphous Crystals 3+ 09/08/18 00:14 Hyaline Casts 99 /LPF 09/08/18 00:14 Urine Mucus 2+ /HPF 09/08/18 00:14 Salicylates < 0.3 mg/dL (2.8-20.0) L 09/02/18 12:35 Urine Opiates Screen Presumptive negative 09/02/18 13:59 Urine Methadone Screen Presumptive negative 09/02/18 13:59 Acetaminophen < 5.0 ug/mL (10.0-30.0) L 09/02/18 12:35 Ur Barbiturates Screen Presumptive negative 09/02/18 13:59 Ur Phencyclidine Scrn Presumptive negative 09/02/18 13:59 Ur Amphetamines Screen Presumptive negative 09/02/18 13:59 U Benzodiazepines Scrn Presumptive negative 09/02/18 13:59 Urine Cocaine Screen Presumptive negative 09/02/18 13:59 U Marijuana (THC) Screen Presumptive negative 09/02/18 13:59 Drugs of Abuse Note Disclamer 09/02/18 13:59 Plasma/Serum Alcohol < 0.01 % (0-0.07) 09/02/18 12:35 Nutrition/Malnutrition Assess - Dietary Evaluation Nutrition/Malnutrition Findings: Nutrition Notes Start: 09/06/18 15:28 Freq: Status: Active Protocol: Document 09/10/18 12:48 PROSPER (Rec: 09/10/18 12:49 PROSPER [id number] [email or web address]) Nutrition Notes Subjective/Other Information F/U date changed. Nutrition Intervention Follow-Up By: 09/17/18 Additional Comments F/U: stable TF, wt
[2018-09-10] MEDS: LANTUS SUB-Q SCH (22:10)
[2018-09-11] MEDS: HALDOL IV PRN ×2 (02:05→13:27)
--- NOTE | 2018-09-11 02:25 | XRay Report ---
FINAL REPORT PROCEDURE: XR CHEST 1V AP TECHNIQUE: Chest radiograph anteroposterior view. CPT 89328 HISTORY: follow up respiratory failure COMPARISON: 09/10/2018 FINDINGS: Heart: Normal. Mediastinum/Vessels: Normal. Lungs/Pleural space: Improved aeration of the lungs since prior study. No acute infiltrate, effusion or pneumothorax. Bony thorax: No acute osseous abnormality. Life support devices: The endotracheal tube ends 4 centimeters above the mariama. Nasogastric tube end s below the hemidiaphragms. IMPRESSION: Improved aeration of both lungs on today's study. The endotracheal tube and nasogastric tube are prop erly positioned..
[2018-09-11] MEDS: DUONEB *Not for PRN Use IH SCH ×4 (02:33→19:45)
[2018-09-11] MEDS: SUBLIMAZE IV PRN (04:06)
[2018-09-11] MEDS: FREE WATER PO SCH ×6 (04:15→20:49)
[2018-09-11 05:46] LABS: BUN/Creatinine Ratio 48; Blood Urea Nitrogen 38 mg/dL (9-20); Calcium 10.7 mg/dL (8.4-10.2); Hemolysis Index 4
[2018-09-11] MEDS: HumaLOG SUB-Q SCH ×4 (06:27→19:38)
--- NOTE | 2018-09-11 07:41 | Progress Note ---
Assessment and Plan - Patient Problems (1) Acute renal failure Current Visit: Yes Status: Acute Plan to address problem: Labs indicate stable clearance. Overall renal function stable. Non-oliguric at present time based on I/O. Anaya placed for accurate I/O in this critically ill patient. 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 Management per primary team. He is more awake this am but has had issues with agitation per nursing staff. (3) Hypernatremia Current Visit: Yes Status: Acute Plan to address problem: Secondary to free water losses in the setting of decreased PO intake, current intubated state. Labs show improvement this am. Serum sodium levels are stable. (4) Hypercalcemia Current Visit: Yes Status: Acute Plan to address problem: Levels had been stable, .Currently on D5W at 100 cc/hr. Subjective Date of service: 09/11/18 Principal diagnosis: Ac Hypoxemic Resp failure; AE-COPD; Pneumonia (Aspiration); Ac encephalopat Interval history: No acute issues overnight. Labs are stable. patient is awake, remains intubated, off sedation. Objective - Vital Signs Vital signs: Vital Signs - 12hr 09/10/18 09/10/18 09/10/18 19:45 20:00 20:01 Temperature 97.9 F Pulse Rate 84 79 Pulse Rate [ 79 Anterior Bilateral Throughout] Pulse Rate [ 79 From Monitor] Respiratory 17 18 Rate Respiratory 18 Rate [Anterior Bilateral Throughout] Blood Pressure 125/70 123/71 O2 Sat by Pulse 97 95 Oximetry 09/10/18 09/10/18 09/10/18 20:15 20:31 20:45 Temperature Pulse Rate 78 86 86 Pulse Rate [ Anterior Bilateral Throughout] Pulse Rate [ From Monitor] Respiratory 18 19 17 Rate Respiratory Rate [Anterior Bilateral Throughout] Blood Pressure 123/71 123/71 123/71 O2 Sat by Pulse 96 95 93 Oximetry 09/10/18 09/10/18 09/10/18 21:00 21:15 21:31 Temperature Pulse Rate 83 92 H 84 Pulse Rate [ Anterior Bilateral Throughout] Pulse Rate [ From Monitor] Respiratory 13 21 17 Rate Respiratory Rate [Anterior Bilateral Throughout] Blood Pressure 124/69 123/71 123/71 O2 Sat by Pulse 93 95 Oximetry 09/10/18 09/10/18 09/10/18 21:33 21:45 22:00 Temperature Pulse Rate 85 86 84 Pulse Rate [ Anterior Bilateral Throughout] Pulse Rate [ From Monitor] Respiratory 16 20 13 Rate Respiratory Rate [Anterior Bilateral Throughout] Blood Pressure 123/71 123/71 130/70 O2 Sat by Pulse 95 97 93 Oximetry 09/10/18 09/10/18 09/10/18 22:15 22:31 22:45 Temperature Pulse Rate 87 82 80 Pulse Rate [ Anterior Bilateral Throughout] Pulse Rate [ From Monitor] Respiratory 17 19 18 Rate Respiratory Rate [Anterior Bilateral Throughout] Blood Pressure 130/70 130/70 130/70 O2 Sat by Pulse 95 96 97 Oximetry 09/10/18 09/10/18 09/10/18 23:00 23:15 23:31 Temperature Pulse Rate 89 92 H 92 H Pulse Rate [ Anterior Bilateral Throughout] Pulse Rate [ From Monitor] Respiratory 15 16 22 Rate Respiratory Rate [Anterior Bilateral Throughout] Blood Pressure 131/80 131/80 131/80 O2 Sat by Pulse 95 97 96 Oximetry 09/10/18 09/10/18 09/11/18 23:45 23:49 00:00 Temperature 98.1 F Pulse Rate 92 H 94 H 98 H Pulse Rate [ Anterior Bilateral Throughout] Pulse Rate [ 94 H From Monitor] Respiratory 25 H 20 Rate Respiratory Rate [Anterior Bilateral Throughout] Blood Pressure 131/80 131/80 135/94 O2 Sat by Pulse 96 95 93 Oximetry 09/11/18 09/11/18 09/11/18 00:15 00:31 00:45 Temperature Pulse Rate 105 H 93 H 98 H Pulse Rate [ Anterior Bilateral Throughout] Pulse Rate [ From Monitor] Respiratory 29 H 17 26 H Rate Respiratory Rate [Anterior Bilateral Throughout] Blood Pressure 135/94 135/94 135/94 O2 Sat by Pulse 96 94 94 Oximetry 09/11/18 09/11/18 09/11/18 01:00 01:15 01:31 Temperature Pulse Rate 96 H 99 H 96 H Pulse Rate [ Anterior Bilateral Throughout] Pulse Rate [ From Monitor] Respiratory 19 21 21 Rate Respiratory Rate [Anterior Bilateral Throughout] Blood Pressure 122/74 122/74 122/74 O2 Sat by Pulse 93 95 97 Oximetry 09/11/18 09/11/18 09/11/18 01:45 02:00 02:15 Temperature Pulse Rate 105 H 97 H 97 H Pulse Rate [ Anterior Bilateral Throughout] Pulse Rate [ From Monitor] Respiratory 26 H 21 22 Rate Respiratory Rate [Anterior Bilateral Throughout] Blood Pressure 122/74 130/88 130/88 O2 Sat by Pulse 98 95 94 Oximetry 09/11/18 09/11/18 09/11/18 02:31 02:35 02:41 Temperature Pulse Rate 102 H Pulse Rate [ 89 101 H Anterior Bilateral Throughout] Pulse Rate [ From Monitor] Respiratory 26 H Rate Respiratory 28 H 30 H Rate [Anterior Bilateral Throughout] Blood Pressure 130/88 O2 Sat by Pulse 99 Oximetry 09/11/18 09/11/18 09/11/18 02:45 03:00 03:15 Temperature Pulse Rate 106 H 101 H 98 H Pulse Rate [ Anterior Bilateral Throughout] Pulse Rate [ From Monitor] Respiratory 31 H 19 18 Rate Respiratory Rate [Anterior Bilateral Throughout] Blood Pressure 142/98 150/94 150/94 O2 Sat by Pulse 91 94 95 Oximetry 09/11/18 09/11/18 04:00 04:13 Temperature 98.3 F Pulse Rate 92 H Pulse Rate [ Anterior Bilateral Throughout] Pulse Rate [ From Monitor] Respiratory Rate Respiratory Rate [Anterior Bilateral Throughout] Blood Pressure 155/91 O2 Sat by Pulse 91 Oximetry - General Appearance General appearance: well-developed, appears stated age, intubated EENT: ATNC, PERRL Neck: no JVD, no thyromegaly Respiratory: Present: Clear to Ascultation Cardiology: regular, S1S2 Gastrointestinal: normal, normoactive bowel sounds Integumentary: warm and dry Neurologic: no focal deficit Musculoskeletal: other (-edema ) Psychiatric: agitated - Lab 09/10/18 05:07 09/11/18 04:38 Most recent lab results Calcium 10.7 mg/dL (8.4-10.2) H 09/11/18 04:38 - Allied health notes Allied health notes reviewed: nursing Medications & Allergies - Medications Allergies/Adverse Reactions: Allergies No Known Allergies Allergy (Verified 09/02/18 13:48) Home Medications: Home Medications Medication Instructions Recorded Confirmed Last Taken Type Hydrochlorothiazide 25 mg PO DAILY 09/07/18 09/07/18 Unknown History Lisinopril 5 mg PO DAILY 09/07/18 09/07/18 Unknown History Rosuvastatin Calcium 40 mg PO DAILY 09/07/18 09/07/18 Unknown History Tamsulosin 0.4 mg PO DAILY 09/07/18 09/07/18 Unknown History metFORMIN 500 mg PO BID 09/07/18 09/07/18 Unknown History Active Medications: Generic Name Dose Route Start Last Admin Trade Name Freq PRN Reason Stop Dose Admin Acetaminophen 650 mg 09/02/18 15:03 Tylenol PO Q4H PRN Pain, Mild (1-3) Albuterol 2.5 mg 09/06/18 17:35 09/06/18 19:34 Proventil IH 2.5 mg Q4HRT PRN Administration Shortness Of Breath Albuterol/Ipratropium 1 ampul 09/06/18 17:35 09/11/18 02:33 Duoneb *Not For Prn Use* IH 1 ampul Q6HRT ROXY Administration Lipase/Protease/Amylase 1 each 09/07/18 14:01 Pancreazzulay Winston 10,500 Unit FEEDTUBE PRN PRN For Clogged Feeding Tube Arformoterol Tartrate 15 mcg 09/06/18 20:45 09/10/18 19:24 Brovana Nebu IH 15 mcg Q12HRT ROXY Administration Atorvastatin Calcium 40 mg 09/02/18 22:00 09/10/18 21:53 Lipitor PO 40 mg QHS ROXY Administration Bisacodyl 10 mg 09/02/18 15:03 Dulcolax WA QDAY PRN Constipation Budesonide 0.5 mg 09/07/18 08:00 09/10/18 19:24 Pulmicort IH 0.5 mg Q12HRT ROXY Administration Bupropion HCl 150 mg 09/07/18 14:00 09/10/18 21:54 Wellbutrin Sr PO 150 mg BID ROXY Administration Dextrose 50 ml 09/08/18 10:58 D50w (25gm) Syringe IV PRN PRN Hypoglycemia Docusate Sodium 100 mg 09/10/18 12:00 09/10/18 21:52 Colace FEEDTUBE 100 mg BID ROXY Administration Enoxaparin Sodium 40 mg 09/08/18 15:00 09/10/18 09:15 Lovenox SUB-Q 40 mg QDAY@1000 ROXY Administration Haloperidol Lactate 5 mg 09/09/18 14:18 09/11/18 02:05 Haldol IV 5 mg Q6H PRN Administration Agitation Hydrochlorothiazide 25 mg 09/07/18 15:00 09/10/18 09:15 Hctz PO 25 mg QDAY ROXY Administration Hydrocortisone Acetate 1 applic 09/04/18 16:00 09/10/18 21:53 Proctosol-Hc WA 1 applic Q8HR ROXY Administration Hydrophilic Ointment 1 applic 09/06/18 15:34 Vaseline Lip Therapy TP Q2H PRN Dry Lips Ceftriaxone Sodium 1 gm in 50 mls @ 100 mls/hr 09/06/18 10:00 09/10/18 09:13 Rocephin/Ns 1 Gm/50 Ml IV 09/12/18 10:29 100 mls/hr Q24HR ROXY Administration Protocol Fentanyl Citrate 2,000 mcg in 100 mls @ 4.985 mls/hr 09/06/18 21:00 09/09/18 13:00 Fentanyl Drip Premix IV 0 mcg/kg/hr TITR ROXY 0 mls/hr Titration Protocol 1 MCG/KG/HR Propofol 1,000 mg in 100 mls @ 2.991 mls/hr 09/06/18 21:00 09/08/18 11:44 Diprivan 10 Mg/Ml IV 0 mcg/kg/min TITR ROXY 0 mls/hr Titration Protocol 5 MCG/KG/MIN Dextrose 1,000 mls @ 100 mls/hr 09/09/18 07:00 09/10/18 09:16 D5w IV 100 mls/hr DIRECT ROXY Administration Insulin Glargine 10 units 09/09/18 22:00 09/10/18 22:10 Lantus SUB-Q 10 units QHS ROXY Administration Insulin Human Lispro 0 unit 09/08/18 12:00 09/11/18 06:27 Humalog SUB-Q 2 unit Q6HR ROXY Administration Protocol Lactulose 20 gm 09/08/18 18:29 Cephulac PO Q6HR PRN Delerium Lansoprazole 30 mg 09/08/18 10:00 09/10/18 09:15 Prevacid Solutab FEEDTUBE 30 mg QDAY ROXY Administration Magnesium Hydroxide 30 ml 09/02/18 15:03 Milk Of Magnesia PO Q4H PRN Constipation Methylprednisolone Sodium Succinate 60 mg 09/09/18 22:00 09/10/18 21:54 Solu-Medrol IV 60 mg Q12HR ROXY Administration Metoclopramide HCl 10 mg 09/02/18 15:03 Reglan PO Q6H PRN Nausea And Vomiting Multi-Ingred Cream/Lotion/Oil/Oint 1 applic 09/06/18 15:34 Artificial Tears Ophth Oint OU Q4H PRN Dry Eye(s) Ondansetron HCl 4 mg 09/02/18 15:03 Zofran IV Q8H PRN Nausea And Vomiting Promethazine HCl 25 mg 09/02/18 15:03 Phenergan WA Q6H PRN Nausea And Vomiting Quetiapine Fumarate 100 mg 09/10/18 12:00 09/10/18 21:54 Seroquel PO 100 mg BID ROXY Administration Simple Syrup 15 ml 09/07/18 14:01 Simple Syrup FEEDTUBE PRN PRN Hypoglycemia Simple Syrup 30 ml 09/07/18 14:01 Simple Syrup FEEDTUBE PRN PRN Hypoglycemia Sodium Bicarbonate 325 mg 09/07/18 14:01 Sodium Bicarbonate FEEDTUBE PRN PRN For Clogged Feeding Tube Sodium Chloride 10 ml 09/02/18 15:03 Sodium Chloride Flush Syringe 10 Ml IV PRN PRN LINE FLUSH Tamsulosin HCl 0.4 mg 09/07/18 15:00 09/10/18 09:14 Flomax PO 0.4 mg QDAY ROXY Administration
[2018-09-11] MEDS: PROCTOSOL-HC PR SCH ×3 (08:42→21:48)
[2018-09-11] MEDS: PULMICORT IH SCH ×2 (08:43→19:44)
[2018-09-11] MEDS: BROVANA NEBU IH SCH ×2 (08:43→19:44)
--- NOTE | 2018-09-11 08:59 | Progress Note ---
Assessment and Plan Acute hypoxemic respiratory failure, now on mechanical ventilatory support. Acute chronic obstructive pulmonary disease exacerbation. Pneumonia, right lower lobe present at presentation, possibly aspiration. Obesity. Acute encephalopathy. Possible hyperthyroidism. Elevated serum ammonia, now resolved. Elevated D-dimer with a negative pulmonary embolism workup. Coagulopathy. Hyperglycemia. Acute kidney injury, resolved. Hypernatremia - continue daily SBT's as tolerated - continue to wean oxygen to keep O2 Sat's > 90% thereafter - VAP bundle addressed - titrate sedation for RASS 0 to -1 - complete zithromax & Rocephin for CAP empiric coverage -Start weaning steroids in AM - hold enteral nutritionfor weaning trials, arvin has an OGT - continue bronchodilators with pulmonary hygiene per RT - mobility protocol for pressure ulcer prophylaxis - GI & VTE prophylaxis - glycemic control with SSI for target BG 140 - 180 mg/dL - resume chronic disease medications -PSV trial today, if he tolerates it plan to liberate from MVS, with night time NIPPV support ... care plan discussed with attending, ICU-IDT team The high probability of a clinically significant, sudden or life threatening deterioration of the [Pulmonary,cardiac & neurologic] system(s) required my full and direct attention, intervention and personal management. The aggregate critical care time was [35] minutes. This time is in addition to time spent performing reported procedures but includes the following: [x] Data Review and interpretation [x] Patient assessment and monitoring of vital signs [x] Documentation Subjective Date of service: 09/11/18 Principal diagnosis: Ac Hypoxemic Resp failure; AE-COPD; Pneumonia (Aspiration); Ac encephalopat Interval history: Patient is seen today for: Acute hypoxemic respiratory failure, now on mechanical ventilatory support; Acute chronic obstructive pulmonary disease exacerbation; Pneumonia, right lower lobe present at presentation, possibly aspiration; Obesity; Acute encephalopathy. Seen and examined at bedside; 24hour events reviewed; nursing and respiratory ca re staff consulted; no adverse overnight events reported to me; remains on MVS; Discussed on ICU-IDT rounds Objective Vital Signs - 12hr 09/10/18 09/10/18 09/10/18 21:00 21:15 21:31 Temperature Pulse Rate 83 92 H 84 Pulse Rate [ Anterior Bilateral Throughout] Pulse Rate [ From Monitor] Respiratory 13 21 17 Rate Respiratory Rate [Anterior Bilateral Throughout] Blood Pressure 124/69 123/71 123/71 O2 Sat by Pulse 93 95 Oximetry 09/10/18 09/10/18 09/10/18 21:33 21:45 22:00 Temperature Pulse Rate 85 86 84 Pulse Rate [ Anterior Bilateral Throughout] Pulse Rate [ From Monitor] Respiratory 16 20 13 Rate Respiratory Rate [Anterior Bilateral Throughout] Blood Pressure 123/71 123/71 130/70 O2 Sat by Pulse 95 97 93 Oximetry 09/10/18 09/10/18 09/10/18 22:15 22:31 22:45 Temperature Pulse Rate 87 82 80 Pulse Rate [ Anterior Bilateral Throughout] Pulse Rate [ From Monitor] Respiratory 17 19 18 Rate Respiratory Rate [Anterior Bilateral Throughout] Blood Pressure 130/70 130/70 130/70 O2 Sat by Pulse 95 96 97 Oximetry 09/10/18 09/10/18 09/10/18 23:00 23:15 23:31 Temperature Pulse Rate 89 92 H 92 H Pulse Rate [ Anterior Bilateral Throughout] Pulse Rate [ From Monitor] Respiratory 15 16 22 Rate Respiratory Rate [Anterior Bilateral Throughout] Blood Pressure 131/80 131/80 131/80 O2 Sat by Pulse 95 97 96 Oximetry 09/10/18 09/10/18 09/11/18 23:45 23:49 00:00 Temperature 98.1 F Pulse Rate 92 H 94 H 98 H Pulse Rate [ Anterior Bilateral Throughout] Pulse Rate [ 94 H From Monitor] Respiratory 25 H 20 Rate Respiratory Rate [Anterior Bilateral Throughout] Blood Pressure 131/80 131/80 135/94 O2 Sat by Pulse 96 95 93 Oximetry 09/11/18 09/11/18 09/11/18 00:15 00:31 00:45 Temperature Pulse Rate 105 H 93 H 98 H Pulse Rate [ Anterior Bilateral Throughout] Pulse Rate [ From Monitor] Respiratory 29 H 17 26 H Rate Respiratory Rate [Anterior Bilateral Throughout] Blood Pressure 135/94 135/94 135/94 O2 Sat by Pulse 96 94 94 Oximetry 09/11/18 09/11/18 09/11/18 01:00 01:15 01:31 Temperature Pulse Rate 96 H 99 H 96 H Pulse Rate [ Anterior Bilateral Throughout] Pulse Rate [ From Monitor] Respiratory 19 21 21 Rate Respiratory Rate [Anterior Bilateral Throughout] Blood Pressure 122/74 122/74 122/74 O2 Sat by Pulse 93 95 97 Oximetry 09/11/18 09/11/18 09/11/18 01:45 02:00 02:15 Temperature Pulse Rate 105 H 97 H 97 H Pulse Rate [ Anterior Bilateral Throughout] Pulse Rate [ From Monitor] Respiratory 26 H 21 22 Rate Respiratory Rate [Anterior Bilateral Throughout] Blood Pressure 122/74 130/88 130/88 O2 Sat by Pulse 98 95 94 Oximetry 09/11/18 09/11/18 09/11/18 02:31 02:35 02:41 Temperature Pulse Rate 102 H Pulse Rate [ 89 101 H Anterior Bilateral Throughout] Pulse Rate [ From Monitor] Respiratory 26 H Rate Respiratory 28 H 30 H Rate [Anterior Bilateral Throughout] Blood Pressure 130/88 O2 Sat by Pulse 99 Oximetry 09/11/18 09/11/18 09/11/18 02:45 03:00 03:15 Temperature Pulse Rate 106 H 101 H 98 H Pulse Rate [ Anterior Bilateral Throughout] Pulse Rate [ From Monitor] Respiratory 31 H 19 18 Rate Respiratory Rate [Anterior Bilateral Throughout] Blood Pressure 142/98 150/94 150/94 O2 Sat by Pulse 91 94 95 Oximetry 09/11/18 09/11/18 09/11/18 03:31 03:45 04:00 Temperature 98.3 F Pulse Rate 98 H 108 H 112 H Pulse Rate [ Anterior Bilateral Throughout] Pulse Rate [ From Monitor] Respiratory 25 H 29 H 38 H Rate Respiratory Rate [Anterior Bilateral Throughout] Blood Pressure 150/94 150/94 155/91 O2 Sat by Pulse 97 94 94 Oximetry 09/11/18 09/11/18 09/11/18 04:13 04:15 04:31 Temperature Pulse Rate 92 H 93 H 88 Pulse Rate [ Anterior Bilateral Throughout] Pulse Rate [ From Monitor] Respiratory 24 22 Rate Respiratory Rate [Anterior Bilateral Throughout] Blood Pressure 155/91 155/91 155/91 O2 Sat by Pulse 91 89 91 Oximetry 09/11/18 09/11/18 09/11/18 04:45 05:01 05:15 Temperature Pulse Rate 94 H 93 H 96 H Pulse Rate [ Anterior Bilateral Throughout] Pulse Rate [ From Monitor] Respiratory 16 22 12 Rate Respiratory Rate [Anterior Bilateral Throughout] Blood Pressure 155/91 145/77 145/77 O2 Sat by Pulse 94 92 95 Oximetry 09/11/18 09/11/18 09/11/18 05:31 05:45 06:00 Temperature Pulse Rate 94 H 97 H 94 H Pulse Rate [ Anterior Bilateral Throughout] Pulse Rate [ From Monitor] Respiratory 15 17 21 Rate Respiratory Rate [Anterior Bilateral Throughout] Blood Pressure 145/77 145/77 131/77 O2 Sat by Pulse 96 95 93 Oximetry 09/11/18 09/11/18 09/11/18 06:15 06:31 06:45 Temperature Pulse Rate 96 H 95 H 96 H Pulse Rate [ Anterior Bilateral Throughout] Pulse Rate [ From Monitor] Respiratory 18 22 12 Rate Respiratory Rate [Anterior Bilateral Throughout] Blood Pressure 131/77 131/77 131/77 O2 Sat by Pulse 96 97 97 Oximetry 09/11/18 09/11/18 09/11/18 07:00 07:15 07:31 Temperature Pulse Rate 93 H 94 H 97 H Pulse Rate [ Anterior Bilateral Throughout] Pulse Rate [ From Monitor] Respiratory 12 20 21 Rate Respiratory Rate [Anterior Bilateral Throughout] Blood Pressure 129/79 129/79 129/79 O2 Sat by Pulse 93 97 96 Oximetry 09/11/18 09/11/18 09/11/18 07:45 08:00 08:14 Temperature 98.2 F Pulse Rate 93 H 94 H Pulse Rate [ Anterior Bilateral Throughout] Pulse Rate [ From Monitor] Respiratory 18 16 Rate Respiratory Rate [Anterior Bilateral Throughout] Blood Pressure 129/79 119/83 O2 Sat by Pulse 95 94 Oximetry 09/11/18 09/11/18 09/11/18 08:15 08:31 08:35 Temperature Pulse Rate 101 H 101 H 98 H Pulse Rate [ Anterior Bilateral Throughout] Pulse Rate [ From Monitor] Respiratory 28 H 19 21 Rate Respiratory Rate [Anterior Bilateral Throughout] Blood Pressure 119/83 119/83 119/83 O2 Sat by Pulse 97 96 97 Oximetry 09/11/18 09/11/18 08:44 08:45 Temperature Pulse Rate 97 H Pulse Rate [ 98 H Anterior Bilateral Throughout] Pulse Rate [ From Monitor] Respiratory 31 H Rate Respiratory 20 Rate [Anterior Bilateral Throughout] Blood Pressure 119/83 O2 Sat by Pulse 97 Oximetry Constitutional: appears uncomfortable, other (elderly looking CM, normocephalica nd atraumatic with mildly increased resp effort on MVS) Eyes: non-icteric ENT: oropharynx moist, other (ETT 23 cm SHADIA) Neck: supple, no lymphadenopathy, no JVD, other (large neck circumference) Effort: mildly labored Ascultation: Bilateral: diminished breath sounds, rhonchi Percussion: Bilateral: not dull Cardiovascular: regular rate and rhythm Gastrointestinal: normoactive bowel sounds, soft, non-tender, non-distended Integumentary: normal Extremities: no cyanosis, no edema, pink and warm, pulses normal Neurologic: non-focal exam, pupils equal and round, motor strength normal and, other (encephalopathic) Psychiatric: other (unable to assess) CBC and BMP: 09/10/18 05:07 09/11/18 04:38 ABG, PT/INR, D-dimer: ABG POC ABG pH 7.487 (7.35-7.45) H 09/11/18 04:25 POC ABG pCO2 52.3 (35-45) H 09/11/18 04:25 POC ABG pO2 61 (80-105) L 09/11/18 04:25 POC ABG HCO3 39.6 09/11/18 04:25 POC ABG Total CO2 41 09/11/18 04:25 POC ABG O2 Sat 92 09/11/18 04:25 PT/INR, D-dimer PT 21.8 Sec. (12.2-14.9) H 09/03/18 11:26 INR 1.86 (0.87-1.13) H 09/03/18 11:26 D-Dimer 4180.35 ng/mlDDU (0-234) H 09/02/18 12:35 Abnormal lab findings: Abnormal Labs 09/02/18 09/02/18 09/02/18 12:35 12:35 12:35 RBC 6.15 H Hgb 18.7 H Hct 57.7 H MCV RDW 15.5 H Plt Count Lymph % (Auto) 8.8 L Lymph # 0.9 L Seg Neutrophils % 83.2 H Seg Neuts % (Manual) Lymphocytes % (Manual) Seg Neutrophils # 8.9 H Lymphocytes # (Manual) PT 20.8 H INR 1.74 H D-Dimer 4180.35 H POC ABG pH POC ABG pCO2 POC ABG pO2 Sodium Potassium Chloride Carbon Dioxide BUN Creatinine Glucose POC Glucose Lactic Acid Calcium Total Bilirubin Direct Bilirubin AST Ammonia C-Reactive Protein Total Protein Albumin Triglycerides HDL Cholesterol Lipase TSH Free T4 Urine WBC (Auto) Salicylates < 0.3 L Acetaminophen 09/02/18 09/02/18 09/02/18 12:35 12:35 12:35 RBC Hgb Hct MCV RDW Plt Count Lymph % (Auto) Lymph # Seg Neutrophils % Seg Neuts % (Manual) Lymphocytes % (Manual) Seg Neutrophils # Lymphocytes # (Manual) PT INR D-Dimer POC ABG pH POC ABG pCO2 POC ABG pO2 Sodium Potassium Chloride Carbon Dioxide BUN Creatinine Glucose POC Glucose 167 H Lactic Acid 3.20 H* Calcium Total Bilirubin Direct Bilirubin AST Ammonia C-Reactive Protein Total Protein Albumin Triglycerides HDL Cholesterol Lipase TSH Free T4 Urine WBC (Auto) Salicylates Acetaminophen < 5.0 L 09/02/18 09/02/18 09/02/18 13:36 14:40 16:45 RBC Hgb Hct MCV RDW Plt Count Lymph % (Auto) Lymph # Seg Neutrophils % Seg Neuts % (Manual) Lymphocytes % (Manual) Seg Neutrophils # Lymphocytes # (Manual) PT INR D-Dimer POC ABG pH POC ABG pCO2 POC ABG pO2 Sodium 159 H Potassium Chloride 114.7 H Carbon Dioxide BUN 90 H Creatinine Glucose 172 H POC Glucose Lactic Acid 2.30 H* Calcium 10.8 H Total Bilirubin Direct Bilirubin 0.3 H AST Ammonia C-Reactive Protein Total Protein Albumin 2.6 L Triglycerides HDL Cholesterol Lipase 81 H TSH < 0.005 L Free T4 2.40 H Urine WBC (Auto) Salicylates Acetaminophen 09/03/18 09/03/18 09/03/18 11:26 11:26 11:26 RBC Hgb Hct MCV RDW Plt Count Lymph % (Auto) Lymph # Seg Neutrophils % Seg Neuts % (Manual) Lymphocytes % (Manual) Seg Neutrophils # Lymphocytes # (Manual) PT 21.8 H INR 1.86 H D-Dimer POC ABG pH POC ABG pCO2 POC ABG pO2 Sodium 160 H Potassium Chloride 122.6 H Carbon Dioxide BUN 69 H Creatinine Glucose 127 H POC Glucose Lactic Acid Calcium Total Bilirubin Direct Bilirubin AST Ammonia C-Reactive Protein Total Protein Albumin 2.1 L Triglycerides HDL Cholesterol Lipase TSH Free T4 Urine WBC (Auto) Salicylates Acetaminophen 09/03/18 09/03/18 09/03/18 11:26 15:39 20:23 RBC Hgb Hct MCV RDW Plt Count Lymph % (Auto) Lymph # Seg Neutrophils % Seg Neuts % (Manual) Lymphocytes % (Manual) Seg Neutrophils # Lymphocytes # (Manual) PT INR D-Dimer POC ABG pH POC ABG pCO2 POC ABG pO2 Sodium 160 H 160 H Potassium Chloride Carbon Dioxide BUN Creatinine Glucose POC Glucose Lactic Acid Calcium Total Bilirubin Direct Bilirubin AST Ammonia 75.0 H C-Reactive Protein Total Protein Albumin Triglycerides HDL Cholesterol Lipase TSH Free T4 Urine WBC (Auto) Salicylates Acetaminophen 09/03/18 09/04/18 09/04/18 Unknown 02:38 05:20 RBC Hgb Hct MCV RDW Plt Count Lymph % (Auto) Lymph # Seg Neutrophils % Seg Neuts % (Manual) Lymphocytes % (Manual) Seg Neutrophils # Lymphocytes # (Manual) PT INR D-Dimer POC ABG pH POC ABG pCO2 POC ABG pO2 Sodium 160 H 166 H* Potassium Chloride 129.2 H Carbon Dioxide BUN 57 H Creatinine Glucose 137 H POC Glucose Lactic Acid Calcium Total Bilirubin Direct Bilirubin AST Ammonia C-Reactive Protein Total Protein 5.8 L Albumin 2.7 L Triglycerides 150 H HDL Cholesterol 21 L Lipase TSH Free T4 Urine WBC (Auto) Salicylates Acetaminophen 09/04/18 09/04/18 09/04/18 05:20 09:11 13:35 RBC 5.12 H Hgb 15.5 H D 15.6 H Hct 48.0 H D 48.1 H MCV RDW 15.9 H Plt Count Lymph % (Auto) 11.8 L Lymph # 0.8 L Seg Neutrophils % 80.1 H Seg Neuts % (Manual) Lymphocytes % (Manual) Seg Neutrophils # Lymphocytes # (Manual) PT INR D-Dimer POC ABG pH POC ABG pCO2 POC ABG pO2 Sodium 166 H* Potassium Chloride Carbon Dioxide BUN Creatinine Glucose POC Glucose Lactic Acid Calcium Total Bilirubin Direct Bilirubin AST Ammonia C-Reactive Protein Total Protein Albumin Triglycerides HDL Cholesterol Lipase TSH Free T4 Urine WBC (Auto) Salicylates Acetaminophen 09/04/18 09/04/18 09/04/18 13:35 21:04 21:04 RBC Hgb 16.9 H Hct 58.3 H D MCV RDW Plt Count Lymph % (Auto) Lymph # Seg Neutrophils % Seg Neuts % (Manual) Lymphocytes % (Manual) Seg Neutrophils # Lymphocytes # (Manual) PT INR D-Dimer POC ABG pH POC ABG pCO2 POC ABG pO2 Sodium 164 H* 159 H Potassium Chloride Carbon Dioxide BUN Creatinine Glucose POC Glucose Lactic Acid Calcium Total Bilirubin Direct Bilirubin AST Ammonia C-Reactive Protein Total Protein Albumin Triglycerides HDL Cholesterol Lipase TSH Free T4 Urine WBC (Auto) Salicylates Acetaminophen 09/05/18 09/05/18 09/05/18 01:11 02:51 03:17 RBC Hgb Hct MCV RDW Plt Count Lymph % (Auto) Lymph # Seg Neutrophils % Seg Neuts % (Manual) Lymphocytes % (Manual) Seg Neutrophils # Lymphocytes # (Manual) PT INR D-Dimer POC ABG pH 7.340 L POC ABG pCO2 57.8 H POC ABG pO2 74 L Sodium 152 H Potassium Chloride Carbon Dioxide BUN Creatinine Glucose POC Glucose 116 H Lactic Acid Calcium Total Bilirubin Direct Bilirubin AST Ammonia C-Reactive Protein Total Protein Albumin Triglycerides HDL Cholesterol Lipase TSH Free T4 Urine WBC (Auto) Salicylates Acetaminophen 09/05/18 09/05/18 09/05/18 07:45 10:34 15:21 RBC Hgb Hct MCV RDW Plt Count Lymph % (Auto) Lymph # Seg Neutrophils % Seg Neuts % (Manual) Lymphocytes % (Manual) Seg Neutrophils # Lymphocytes # (Manual) PT INR D-Dimer POC ABG pH POC ABG pCO2 POC ABG pO2 Sodium 156 H 153 H Potassium Chloride Carbon Dioxide BUN Creatinine Glucose POC Glucose Lactic Acid Calcium Total Bilirubin Direct Bilirubin AST Ammonia 61.0 H C-Reactive Protein Total Protein Albumin Triglycerides HDL Cholesterol Lipase TSH Free T4 Urine WBC (Auto) Salicylates Acetaminophen 09/06/18 09/06/18 09/06/18 05:10 05:10 08:43 RBC 5.06 H Hgb Hct 47.8 H D MCV RDW 15.3 H Plt Count Lymph % (Auto) Lymph # Seg Neutrophils % Seg Neuts % (Manual) Lymphocytes % (Manual) Seg Neutrophils # Lymphocytes # (Manual) PT INR D-Dimer POC ABG pH POC ABG pCO2 POC ABG pO2 Sodium 155 H 150 H Potassium Chloride 117.0 H Carbon Dioxide BUN 36 H Creatinine Glucose 143 H POC Glucose Lactic Acid Calcium Total Bilirubin Direct Bilirubin AST Ammonia C-Reactive Protein Total Protein Albumin Triglycerides HDL Cholesterol Lipase TSH Free T4 Urine WBC (Auto) Salicylates Acetaminophen 09/06/18 09/06/18 09/06/18 13:21 15:11 16:23 RBC Hgb Hct MCV RDW Plt Count Lymph % (Auto) Lymph # Seg Neutrophils % Seg Neuts % (Manual) Lymphocytes % (Manual) Seg Neutrophils # Lymphocytes # (Manual) PT INR D-Dimer POC ABG pH POC ABG pCO2 49.1 H POC ABG pO2 107 H Sodium 151 H Potassium Chloride Carbon Dioxide BUN Creatinine Glucose POC Glucose 120 H Lactic Acid Calcium Total Bilirubin Direct Bilirubin AST Ammonia C-Reactive Protein Total Protein Albumin Triglycerides HDL Cholesterol Lipase TSH Free T4 Urine WBC (Auto) Salicylates Acetaminophen 09/06/18 09/07/18 09/07/18 21:58 00:25 02:49 RBC 5.32 H Hgb 16.1 H Hct 50.2 H MCV 95 H RDW 15.6 H Plt Count Lymph % (Auto) Lymph # Seg Neutrophils % Seg Neuts % (Manual) Lymphocytes % (Manual) Seg Neutrophils # Lymphocytes # (Manual) PT INR D-Dimer POC ABG pH POC ABG pCO2 POC ABG pO2 Sodium 150 H Potassium Chloride Carbon Dioxide BUN Creatinine Glucose POC Glucose Lactic Acid Calcium Total Bilirubin Direct Bilirubin AST Ammonia C-Reactive Protein 9.00 H Total Protein Albumin Triglycerides HDL Cholesterol Lipase TSH Free T4 Urine WBC (Auto) Salicylates Acetaminophen 09/07/18 09/07/18 09/07/18 02:49 03:43 09:17 RBC Hgb Hct MCV RDW Plt Count Lymph % (Auto) Lymph # Seg Neutrophils % Seg Neuts % (Manual) Lymphocytes % (Manual) Seg Neutrophils # Lymphocytes # (Manual) PT INR D-Dimer POC ABG pH POC ABG pCO2 46.5 H POC ABG pO2 Sodium 149 H 155 H Potassium 5.2 H D Chloride 116.1 H Carbon Dioxide 21 L BUN 47 H Creatinine Glucose 122 H POC Glucose Lactic Acid Calcium Total Bilirubin 1.80 H Direct Bilirubin AST 83 H Ammonia C-Reactive Protein Total Protein Albumin 1.8 L Triglycerides HDL Cholesterol Lipase TSH Free T4 Urine WBC (Auto) Salicylates Acetaminophen 09/07/18 09/08/18 09/08/18 16:02 00:14 00:51 RBC Hgb Hct MCV RDW Plt Count Lymph % (Auto) Lymph # Seg Neutrophils % Seg Neuts % (Manual) Lymphocytes % (Manual) Seg Neutrophils # Lymphocytes # (Manual) PT INR D-Dimer POC ABG pH POC ABG pCO2 POC ABG pO2 Sodium 156 H 154 H Potassium Chloride Carbon Dioxide BUN Creatinine Glucose POC Glucose Lactic Acid Calcium Total Bilirubin Direct Bilirubin AST Ammonia C-Reactive Protein Total Protein Albumin Triglycerides HDL Cholesterol Lipase TSH Free T4 Urine WBC (Auto) 41.0 H Salicylates Acetaminophen 09/08/18 09/08/18 09/08/18 04:22 04:22 04:46 RBC Hgb Hct MCV 95 H RDW 15.3 H Plt Count Lymph % (Auto) Lymph # Seg Neutrophils % Seg Neuts % (Manual) Lymphocytes % (Manual) Seg Neutrophils # Lymphocytes # (Manual) PT INR D-Dimer POC ABG pH POC ABG pCO2 55.3 H POC ABG pO2 77 L Sodium 153 H Potassium 3.5 L D Chloride 114.8 H Carbon Dioxide BUN 69 H Creatinine Glucose 277 H POC Glucose Lactic Acid Calcium Total Bilirubin Direct Bilirubin AST 44 H Ammonia C-Reactive Protein Total Protein 5.6 L Albumin 2.4 L Triglycerides HDL Cholesterol Lipase TSH Free T4 Urine WBC (Auto) Salicylates Acetaminophen 09/08/18 09/08/18 09/08/18 08:40 12:03 15:43 RBC Hgb Hct MCV RDW Plt Count Lymph % (Auto) Lymph # Seg Neutrophils % Seg Neuts % (Manual) Lymphocytes % (Manual) Seg Neutrophils # Lymphocytes # (Manual) PT INR D-Dimer POC ABG pH POC ABG pCO2 POC ABG pO2 Sodium 154 H 152 H Potassium Chloride Carbon Dioxide BUN Creatinine Glucose POC Glucose 186 H Lactic Acid Calcium Total Bilirubin Direct Bilirubin AST Ammonia C-Reactive Protein Total Protein Albumin Triglycerides HDL Cholesterol Lipase TSH Free T4 Urine WBC (Auto) Salicylates Acetaminophen 09/08/18 09/08/18 09/09/18 17:57 23:54 04:01 RBC Hgb Hct MCV 95 H RDW 15.3 H Plt Count 130 L Lymph % (Auto) Lymph # Seg Neutrophils % Seg Neuts % (Manual) Lymphocytes % (Manual) Seg Neutrophils # Lymphocytes # (Manual) PT INR D-Dimer POC ABG pH POC ABG pCO2 POC ABG pO2 Sodium Potassium Chloride Carbon Dioxide BUN Creatinine Glucose POC Glucose 252 H 297 H Lactic Acid Calcium Total Bilirubin Direct Bilirubin AST Ammonia C-Reactive Protein Total Protein Albumin Triglycerides HDL Cholesterol Lipase TSH Free T4 Urine WBC (Auto) Salicylates Acetaminophen 09/09/18 09/09/18 09/09/18 04:01 04:33 05:32 RBC Hgb Hct MCV RDW Plt Count Lymph % (Auto) Lymph # Seg Neutrophils % Seg Neuts % (Manual) Lymphocytes % (Manual) Seg Neutrophils # Lymphocytes # (Manual) PT INR D-Dimer POC ABG pH 7.267 L POC ABG pCO2 76.6 H POC ABG pO2 69 L Sodium 150 H Potassium Chloride 110.9 H Carbon Dioxide 32 H BUN 62 H Creatinine Glucose 220 H POC Glucose 196 H Lactic Acid Calcium 10.3 H Total Bilirubin Direct Bilirubin AST Ammonia C-Reactive Protein Total Protein Albumin Triglycerides HDL Cholesterol Lipase TSH Free T4 Urine WBC (Auto) Salicylates Acetaminophen 09/09/18 09/09/18 09/09/18 11:40 17:57 23:36 RBC Hgb Hct MCV RDW Plt Count Lymph % (Auto) Lymph # Seg Neutrophils % Seg Neuts % (Manual) Lymphocytes % (Manual) Seg Neutrophils # Lymphocytes # (Manual) PT INR D-Dimer POC ABG pH POC ABG pCO2 POC ABG pO2 Sodium Potassium Chloride Carbon Dioxide BUN Creatinine Glucose POC Glucose 217 H 172 H 131 H Lactic Acid Calcium Total Bilirubin Direct Bilirubin AST Ammonia C-Reactive Protein Total Protein Albumin Triglycerides HDL Cholesterol Lipase TSH Free T4 Urine WBC (Auto) Salicylates Acetaminophen 09/10/18 09/10/18 09/10/18 05:07 05:07 05:51 RBC Hgb Hct MCV RDW Plt Count 115 L Lymph % (Auto) Lymph # Seg Neutrophils % Seg Neuts % (Manual) 95.0 H Lymphocytes % (Manual) 3.0 L Seg Neutrophils # Lymphocytes # (Manual) 0.2 L PT INR D-Dimer POC ABG pH POC ABG pCO2 POC ABG pO2 Sodium 146 H Potassium Chloride Carbon Dioxide 33 H BUN 46 H Creatinine 0.7 L Glucose 174 H POC Glucose 169 H Lactic Acid Calcium 10.3 H Total Bilirubin Direct Bilirubin AST Ammonia C-Reactive Protein Total Protein Albumin Triglycerides HDL Cholesterol Lipase TSH Free T4 Urine WBC (Auto) Salicylates Acetaminophen 09/10/18 09/10/18 09/10/18 14:25 15:02 17:48 RBC Hgb Hct MCV RDW Plt Count Lymph % (Auto) Lymph # Seg Neutrophils % Seg Neuts % (Manual) Lymphocytes % (Manual) Seg Neutrophils # Lymphocytes # (Manual) PT INR D-Dimer POC ABG pH POC ABG pCO2 62.6 H POC ABG pO2 Sodium Potassium Chloride Carbon Dioxide BUN Creatinine Glucose POC Glucose 240 H 185 H Lactic Acid Calcium Total Bilirubin Direct Bilirubin AST Ammonia C-Reactive Protein Total Protein Albumin Triglycerides HDL Cholesterol Lipase TSH Free T4 Urine WBC (Auto) Salicylates Acetaminophen 09/10/18 09/11/18 09/11/18 23:28 04:25 04:38 RBC Hgb Hct MCV RDW Plt Count Lymph % (Auto) Lymph # Seg Neutrophils % Seg Neuts % (Manual) Lymphocytes % (Manual) Seg Neutrophils # Lymphocytes # (Manual) PT INR D-Dimer POC ABG pH 7.487 H POC ABG pCO2 52.3 H POC ABG pO2 61 L Sodium 146 H Potassium Chloride Carbon Dioxide 37 H BUN 38 H Creatinine Glucose 254 H POC Glucose 132 H Lactic Acid Calcium 10.7 H Total Bilirubin Direct Bilirubin AST Ammonia C-Reactive Protein Total Protein Albumin Triglycerides HDL Cholesterol Lipase TSH Free T4 Urine WBC (Auto) Salicylates Acetaminophen 09/11/18 05:09 RBC Hgb Hct MCV RDW Plt Count Lymph % (Auto) Lymph # Seg Neutrophils % Seg Neuts % (Manual) Lymphocytes % (Manual) Seg Neutrophils # Lymphocytes # (Manual) PT INR D-Dimer POC ABG pH POC ABG pCO2 POC ABG pO2 Sodium Potassium Chloride Carbon Dioxide BUN Creatinine Glucose POC Glucose 190 H Lactic Acid Calcium Total Bilirubin Direct Bilirubin AST Ammonia C-Reactive Protein Total Protein Albumin Triglycerides HDL Cholesterol Lipase TSH Free T4 Urine WBC (Auto) Salicylates Acetaminophen Allied health notes reviewed: nursing
[2018-09-11] MEDS: HCTZ PO SCH (09:43)
[2018-09-11] MEDS: FLOMAX PO SCH (09:44)
[2018-09-11] MEDS: COLACE FEEDTUBE SCH ×3 (09:45→22:00)
[2018-09-11] MEDS: LOVENOX SUB-Q SCH (09:45)
[2018-09-11] MEDS: PREVACID SOLUTAB FEEDTUBE SCH (09:46)
[2018-09-11] MEDS: WELLBUTRIN SR PO SCH (09:47)
[2018-09-11] MEDS: ROCEPHIN/NS 1 GM/50 ML 1 GM/50 ML BAG IV SCH (09:47)
[2018-09-11] MEDS: WELLBUTRIN PO SCH ×3 (09:48→22:02)
[2018-09-11] MEDS: SOLU-Medrol IV SCH ×2 (09:48→21:48)
[2018-09-11] MEDS: PROVENTIL IH PRN (13:11)
--- NOTE | 2018-09-11 16:45 | Progress Note ---
Assessment and Plan Assessment and plan: 68 YO Male with Obesity Hypoventilation, COPD presents to ED for evaluation. Pt is confused, lethargic and unable to provide history. Pt history provided by his brother who is at bedside during exam and interview. As per brother, the patient has not returned phone calls over the past 4 days. As a result, the brother went to the home but the patient did not answer the door. Law Enforcement notified, and entry into the home was obtained. The patient was found down and covered in his own feces. Pt exhibited slurred speech, confusion. EMS notified and upon arrival, the patient was found to have a neurologic deficit. A code stroke was called, and the patient was transported to [facility]. Pt seen and evaluated in ED and found to have evidence of CVA as well as SIRS, Acidosis, and Encephalopathy. Pt admitted to telemetry and initiated on CVA protocol. He was intubated with concern for aspiration. Neurology consulted. Acute Metabolic encephalopathy Acute Hypoxic Respiratory failure Hypernatremia Rectal Bleed. Aspiration Pneumonia Obesity Hypoventilation syndrome ETOH use disorder hYPOTHYRODISIM Moderate Protien calorie Malnutrition Secondary Coagulopathy ?UNDERLYING LIVER DISEASE VS IATROGENIC MEDICATION Sepsis Tobacco use disorder per hx Plan Continue supportive care, s/p Intubation Continue aspiration precautions Cow Washer input appreciated Family updated Home meds reviewed, Nurse to input in system Continue free water and lactulose Nephrology consult to assist Discontinue ASA. NO CVA and now with rectal bleed. Seizure precautions Continue Empiric abx Aspiration precautions DVT/GI prophy Call placed to family to obtain more clinical information Still awaiting home meds Requested records from [facility] still pending. Discussed with Nursing staff The high probability of a clinically significant, sudden or life threatening deterioration of the [pulmonary, tool dispatcher] system(s) required my full and direct attention, intervention and personal management. The aggregate critical care t stephen was [45] minutes. This time is in addition to time spent performing reported procedures but includes the following: [x] Data Review and interpretation [x] Patient assessment and monitoring of vital signs [x] Documentation [x] Medication orders and management History Interval history: Patient was seen and evaluated this morning, patient was intubated and alert. Hospitalist Physical - Physical exam Narrative exam: Patient is intubated. The patient appeared well nourished and normally developed. Vital signs as documented. Head exam is unremarkable. No scleral icterus . Neck is without jugular venous distension, thyromegaly, or carotid bruits. Lungs are clear to auscultation. Cardiac exam reveals regular rate and Rhythm. First and second heart sounds normal. No murmurs, rubs or gallops. Abdominal exam reveals normal bowel sounds, no masses, no organomegaly and no aortic enlargement. Extremities are nonedematous and both femoral and pedal pulses are normal. 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 - Constitutional Vitals: Temp Pulse Resp BP Pulse Ox 98.0 F 95 H 35 H 133/79 96 09/11/18 12:27 09/11/18 15:15 09/11/18 14:52 09/11/18 15:15 09/11/18 15:15 General appearance: Present: mild distress, obese, disheveled Results - Labs CBC & Chem 7: 09/10/18 05:07 09/11/18 04:38 Labs: Laboratory Last Values WBC 8.0 K/mm3 (4.5-11.0) 09/10/18 05:07 RBC 4.72 M/mm3 (3.65-5.03) 09/10/18 05:07 Hgb 14.0 gm/dl (11.8-15.2) 09/10/18 05:07 Hct 43.7 % (35.5-45.6) 09/10/18 05:07 MCV 93 fl (84-94) 09/10/18 05:07 MCH 30 pg (28-32) 09/10/18 05:07 MCHC 32 % (32-34) 09/10/18 05:07 RDW 14.9 % (13.2-15.2) 09/10/18 05:07 Plt Count 115 K/mm3 (140-440) L 09/10/18 05:07 Lymph % (Auto) 11.8 % (13.4-35.0) L 09/04/18 05:20 Barton % (Auto) 6.8 % (0.0-7.3) 09/04/18 05:20 Eos % (Auto) 1.0 % (0.0-4.3) 09/04/18 05:20 Baso % (Auto) 0.3 % (0.0-1.8) 09/04/18 05:20 Lymph # 0.8 K/mm3 (1.2-5.4) L 09/04/18 05:20 Barton # 0.5 K/mm3 (0.0-0.8) 09/04/18 05:20 Eos # 0.1 K/mm3 (0.0-0.4) 09/04/18 05:20 Baso # 0.0 K/mm3 (0.0-0.1) 09/04/18 05:20 Add Manual Diff Complete 09/10/18 05:07 Total Counted 100 09/10/18 05:07 Seg Neutrophils % Fire Suppression Captain 09/10/18 05:07 Seg Neuts % (Manual) 95.0 % (40.0-70.0) H 09/10/18 05:07 Band Neutrophils % 1.0 % 09/10/18 05:07 Lymphocytes % (Manual) 3.0 % (13.4-35.0) L 09/10/18 05:07 Reactive Lymphs % (Man) 0 % 09/10/18 05:07 Monocytes % (Manual) 1.0 % (0.0-7.3) 09/10/18 05:07 Eosinophils % (Manual) 0 % (0.0-4.3) 09/10/18 05:07 Basophils % (Manual) 0 % (0.0-1.8) 09/10/18 05:07 Metamyelocytes % 0 % 09/10/18 05:07 Myelocytes % 0 % 09/10/18 05:07 Promyelocytes % 0 % 09/10/18 05:07 Blast Cells % 0 % 09/10/18 05:07 Nucleated RBC % Not Reportable 09/10/18 05:07 Seg Neutrophils # 5.5 K/mm3 (1.8-7.7) 09/04/18 05:20 Seg Neutrophils # Man 7.6 K/mm3 (1.8-7.7) 09/10/18 05:07 Band Neutrophils # 0.1 K/mm3 09/10/18 05:07 Lymphocytes # (Manual) 0.2 K/mm3 (1.2-5.4) L 09/10/18 05:07 Abs React Lymphs (Man) 0.0 K/mm3 09/10/18 05:07 Monocytes # (Manual) 0.1 K/mm3 (0.0-0.8) 09/10/18 05:07 Eosinophils # (Manual) 0.0 K/mm3 (0.0-0.4) 09/10/18 05:07 Basophils # (Manual) 0.0 K/mm3 (0.0-0.1) 09/10/18 05:07 Metamyelocytes # 0.0 K/mm3 09/10/18 05:07 Myelocytes # 0.0 K/mm3 09/10/18 05:07 Promyelocytes # 0.0 K/mm3 09/10/18 05:07 Blast Cells # 0.0 K/mm3 09/10/18 05:07 WBC Morphology Not Reportable 09/10/18 05:07 Hypersegmented Neuts Not Reportable 09/10/18 05:07 Hyposegmented Neuts Not Reportable 09/10/18 05:07 Hypogranular Neuts Not Reportable 09/10/18 05:07 Smudge Cells Not Reportable 09/10/18 05:07 Toxic Granulation Not Reportable 09/10/18 05:07 Toxic Vacuolation Not Reportable 09/10/18 05:07 Dohle Bodies Not Reportable 09/10/18 05:07 Pelger-Huet Anomaly Not Reportable 09/10/18 05:07 Tony Rods Not Reportable 09/10/18 05:07 Platelet Estimate Consistent w auto 09/10/18 05:07 Clumped Platelets Not Reportable 09/10/18 05:07 Plt Clumps, EDTA Not Reportable 09/10/18 05:07 Large Platelets Not Reportable 09/10/18 05:07 Giant Platelets Not Reportable 09/10/18 05:07 Platelet Satelliting Not Reportable 09/10/18 05:07 Plt Morphology Comment Not Reportable 09/10/18 05:07 RBC Morphology Not Reportable 09/10/18 05:07 Dimorphic RBCs Not Reportable 09/10/18 05:07 Polychromasia 1+ 09/10/18 05:07 Hypochromasia Not Reportable 09/10/18 05:07 Poikilocytosis Not Reportable 09/10/18 05:07 Anisocytosis 1+ 09/10/18 05:07 Microcytosis Not Reportable 09/10/18 05:07 Macrocytosis Not Reportable 09/10/18 05:07 Spherocytes Not Reportable 09/10/18 05:07 Pappenheimer Bodies Not Reportable 09/10/18 05:07 Sickle Cells Not Reportable 09/10/18 05:07 Target Cells Not Reportable 09/10/18 05:07 Tear Drop Cells Not Reportable 09/10/18 05:07 Ovalocytes Not Reportable 09/10/18 05:07 Helmet Cells Not Reportable 09/10/18 05:07 Vizcaino-Burleson Bodies Not Reportable 09/10/18 05:07 Telephone Rings Not Reportable 09/10/18 05:07 Acme Cells Not Reportable 09/10/18 05:07 Bite Cells Not Reportable 09/10/18 05:07 Crenated Cell Not Reportable 09/10/18 05:07 Elliptocytes Not Reportable 09/10/18 05:07 Acanthocytes (Spur) Not Reportable 09/10/18 05:07 Rouleaux Not Reportable 09/10/18 05:07 Hemoglobin C Crystals Not Reportable 09/10/18 05:07 Schistocytes Not Reportable 09/10/18 05:07 Malaria parasites Not Reportable 09/10/18 05:07 Tejinder Bodies Not Reportable 09/10/18 05:07 Hem Pathologist Commnt No 09/10/18 05:07 PT 21.8 Sec. (12.2-14.9) H 09/03/18 11:26 INR 1.86 (0.87-1.13) H 09/03/18 11:26 APTT 32.5 Sec. (24.2-36.6) 09/02/18 12:35 D-Dimer 4180.35 ng/mlDDU (0-234) H 09/02/18 12:35 POC ABG pH 7.538 (7.35-7.45) H 09/11/18 11:58 POC ABG pCO2 50.4 (35-45) H 09/11/18 11:58 POC ABG pO2 78 (80-105) L 09/11/18 11:58 POC ABG HCO3 42.9 09/11/18 11:58 POC ABG Total CO2 44 09/11/18 11:58 POC ABG O2 Sat 97 09/11/18 11:58 POC ABG Base Excess 20 09/11/18 11:58 FiO2 40 % 09/11/18 11:58 Sodium 146 mmol/L (137-145) H 09/11/18 04:38 Potassium 3.8 mmol/L (3.6-5.0) 09/11/18 04:38 Chloride 99.2 mmol/L (98-107) 09/11/18 04:38 Carbon Dioxide 37 mmol/L (22-30) H 09/11/18 04:38 Anion Gap 14 mmol/L 09/11/18 04:38 BUN 38 mg/dL (9-20) H 09/11/18 04:38 Creatinine 0.8 mg/dL (0.8-1.5) 09/11/18 04:38 Estimated GFR > 60 ml/min 09/11/18 04:38 BUN/Creatinine Ratio 48 % 09/11/18 04:38 Glucose 254 mg/dL (75-100) H 09/11/18 04:38 POC Glucose 190 (70-105) H 09/11/18 05:09 Lactic Acid 1.40 mmol/L (0.7-2.0) 09/06/18 21:58 Calcium 10.7 mg/dL (8.4-10.2) H 09/11/18 04:38 Total Bilirubin 0.70 mg/dL (0.1-1.2) 09/08/18 04:22 Direct Bilirubin < 0.2 mg/dL (0-0.2) 09/03/18 11:26 Indirect Bilirubin 0.3 mg/dL 09/02/18 13:36 AST 44 units/L (5-40) H 09/08/18 04:22 ALT 33 units/L (7-56) 09/08/18 04:22 Alkaline Phosphatase 80 units/L (35-129) 09/08/18 04:22 Ammonia 58.0 umol/L (25-60) 09/06/18 05:10 Total Creatine Kinase 98 units/L (55-170) 09/02/18 13:36 Troponin T 0.018 ng/mL (0.00-0.029) 09/02/18 13:36 C-Reactive Protein 9.00 mg/dL (0.00-1.30) H 09/06/18 21:58 NT-Pro-B Natriuret Pep 873.7 pg/mL (0-900) 09/02/18 13:36 Total Protein 5.6 g/dL (6.3-8.2) L 09/08/18 04:22 Albumin 2.4 g/dL (3.9-5) L 09/08/18 04:22 Albumin/Globulin Ratio 0.8 % 09/08/18 04:22 Triglycerides 150 mg/dL (2-149) H 09/03/18 Unknown Cholesterol 116 mg/dL (50-199) 09/03/18 Unknown LDL Cholesterol Direct 69 mg/dL (50-130) 09/03/18 Unknown HDL Cholesterol 21 mg/dL (40-59) L 09/03/18 Unknown Cholesterol/HDL Ratio 5.52 % 09/03/18 Unknown Lipase 81 units/L (13-60) H 09/02/18 13:36 TSH < 0.005 mlU/mL (0.270-4.200) L 09/02/18 16:45 Free T4 2.40 ng/dL (0.76-1.46) H 09/02/18 16:45 Urine Color [place] (Yellow) 09/08/18 00:14 Urine Turbidity Cloudy (Clear) 09/08/18 00:14 Urine pH 5.0 (5.0-7.0) 09/08/18 00:14 Ur Specific [place] 1.019 (1.003-1.030) 09/08/18 00:14 Urine Protein 30 mg/dl mg/dL (Negative) 09/08/18 00:14 Urine Glucose (UA) Neg mg/dL (Negative) 09/08/18 00:14 Urine Ketones Neg mg/dL (Negative) 09/08/18 00:14 Urine Blood Lg (Negative) 09/08/18 00:14 Urine Nitrite Neg (Negative) 09/08/18 00:14 Urine Bilirubin Neg (Negative) 09/08/18 00:14 Urine Urobilinogen 4.0 mg/dL (<2.0) 09/08/18 00:14 Ur Leukocyte Esterase Neg (Negative) 09/08/18 00:14 Urine WBC (Auto) 41.0 /HPF (0.0-6.0) H 09/08/18 00:14 Urine RBC (Auto) > 182.0 /HPF (0.0-6.0) 09/08/18 00:14 U Epithel Cells (Auto) 8.0 /HPF (0-13.0) 09/08/18 00:14 Urine Bacteria (Auto) 2+ /HPF (Negative) 09/08/18 00:14 Ur Transition Epith Cell 1 /HPF 09/08/18 00:14 Amorphous Crystals 3+ 09/08/18 00:14 Hyaline Casts 99 /LPF 09/08/18 00:14 Urine Mucus 2+ /HPF 09/08/18 00:14 Salicylates < 0.3 mg/dL (2.8-20.0) L 09/02/18 12:35 Urine Opiates Screen Presumptive negative 09/02/18 13:59 Urine Methadone Screen Presumptive negative 09/02/18 13:59 Acetaminophen < 5.0 ug/mL (10.0-30.0) L 09/02/18 12:35 Ur Barbiturates Screen Presumptive negative 09/02/18 13:59 Ur Phencyclidine Scrn Presumptive negative 09/02/18 13:59 Ur Amphetamines Screen Presumptive negative 09/02/18 13:59 U Benzodiazepines Scrn Presumptive negative 09/02/18 13:59 Urine Cocaine Screen Presumptive negative 09/02/18 13:59 U Marijuana (THC) Screen Presumptive negative 09/02/18 13:59 Drugs of Abuse Note Disclamer 09/02/18 13:59 Plasma/Serum Alcohol < 0.01 % (0-0.07) 09/02/18 12:35 Nutrition/Malnutrition Assess - Dietary Evaluation Nutrition/Malnutrition Findings: Nutrition Notes Start: 09/06/18 15:28 Freq: Status: Active Protocol: Document 09/10/18 12:48 PROSPER (Rec: 09/10/18 12:49 PROSPER [email or web address]) Nutrition Notes Subjective/Other Information F/U date changed. Nutrition Intervention Follow-Up By: 09/17/18 Additional Comments F/U: stable TF, wt
[2018-09-11] MEDS: LANTUS SUB-Q SCH (22:02)
[2018-09-12] MEDS: HumaLOG SUB-Q SCH ×4 (00:48→17:15)
[2018-09-12] MEDS: DUONEB *Not for PRN Use IH SCH ×4 (01:50→19:29)
--- NOTE | 2018-09-12 02:31 | XRay Report ---
FINAL REPORT PROCEDURE: XR CHEST 1V AP TECHNIQUE: Chest radiograph anteroposterior view. CPT 93890 HISTORY: follow up respiratory failure COMPARISON: 09/11/2018 FINDINGS: Heart: Normal. Mediastinum/Vessels: Normal. Lungs/Pleural space: Normal. Bony thorax: No acute osseous abnormality. Life support devices: None. IMPRESSION: No acute cardiopulmonary abnormality.
[2018-09-12] MEDS: FREE WATER PO SCH ×2 (07:14→09:24)
[2018-09-12] MEDS: BROVANA NEBU IH SCH ×2 (07:27→19:19)
[2018-09-12] MEDS: PULMICORT IH SCH ×2 (07:27→19:19)
--- NOTE | 2018-09-12 07:56 | Progress Note ---
Assessment and Plan - Patient Problems (1) Acute renal failure Current Visit: Yes Status: Acute Plan to address problem: Labs indicate stable clearance. Overall renal function stable. Non-oliguric at present time based on I/O. Anaya placed for accurate I/O in this critically ill patient. Labs are pending this am, will follow up. 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 Management per primary team. He is more awake this am but has had issues with agitation per nursing staff. (3) Hypernatremia Current Visit: Yes Status: Acute Plan to address problem: Secondary to free water losses in the setting of decreased PO intake, current intubated state. Labs show improvement. Serum sodium levels have stable over the last 48 hours stable. Pending labs this am. (4) Hypercalcemia Current Visit: Yes Status: Acute Plan to address problem: Levels had been stable, .Currently on D5W at 100 cc/hr. pending am labs Subjective Date of service: 09/12/18 Principal diagnosis: Ac Hypoxemic Resp failure; AE-COPD; Pneumonia (Aspiration); Ac encephalopat Interval history: Patient was extubated yesterday. Pending swallow evaluation this am. Mental status fluctuates in regards to lucidity. Labs pending this am. Non oliguric urine output noted. Anaya catheter in place. Objective - Vital Signs Vital signs: Vital Signs - 12hr 09/11/18 09/11/18 09/11/18 20:00 20:01 20:15 Temperature 97.6 F Pulse Rate 96 H 95 H 99 H Pulse Rate [ 96 H Anterior Bilateral Throughout] Pulse Rate [ 92 H From Monitor] Respiratory 15 18 17 Rate Respiratory 15 Rate [Anterior Bilateral Throughout] Blood Pressure 125/81 131/86 O2 Sat by Pulse 96 94 94 Oximetry 09/11/18 09/11/18 09/11/18 20:31 20:45 21:00 Temperature Pulse Rate 95 H 96 H 94 H Pulse Rate [ Anterior Bilateral Throughout] Pulse Rate [ From Monitor] Respiratory 19 18 10 L Rate Respiratory Rate [Anterior Bilateral Throughout] Blood Pressure 131/86 125/81 126/70 O2 Sat by Pulse 96 94 90 Oximetry 09/11/18 09/11/18 09/11/18 21:15 21:31 21:45 Temperature Pulse Rate 94 H 94 H 93 H Pulse Rate [ Anterior Bilateral Throughout] Pulse Rate [ From Monitor] Respiratory 21 30 H 15 Rate Respiratory Rate [Anterior Bilateral Throughout] Blood Pressure 126/70 126/70 126/70 O2 Sat by Pulse 95 94 92 Oximetry 09/11/18 09/11/18 09/11/18 22:01 22:05 22:15 Temperature Pulse Rate 91 H 93 H Pulse Rate [ Anterior Bilateral Throughout] Pulse Rate [ 91 H From Monitor] Respiratory 16 17 17 Rate Respiratory Rate [Anterior Bilateral Throughout] Blood Pressure 119/73 119/73 O2 Sat by Pulse 93 93 95 Oximetry 09/11/18 09/11/18 09/11/18 22:31 22:45 23:01 Temperature Pulse Rate 93 H 167 H 99 H Pulse Rate [ Anterior Bilateral Throughout] Pulse Rate [ From Monitor] Respiratory 18 20 17 Rate Respiratory Rate [Anterior Bilateral Throughout] Blood Pressure 119/73 119/73 150/94 O2 Sat by Pulse 95 97 94 Oximetry 09/11/18 09/11/18 09/11/18 23:08 23:15 23:31 Temperature Pulse Rate 94 H 94 H 94 H Pulse Rate [ Anterior Bilateral Throughout] Pulse Rate [ From Monitor] Respiratory 17 17 15 Rate Respiratory Rate [Anterior Bilateral Throughout] Blood Pressure 150/94 150/94 150/94 O2 Sat by Pulse 95 96 97 Oximetry 09/11/18 09/11/18 09/12/18 23:34 23:45 00:00 Temperature 98.9 F Pulse Rate 95 H 94 H Pulse Rate [ Anterior Bilateral Throughout] Pulse Rate [ 95 H From Monitor] Respiratory 20 18 15 Rate Respiratory Rate [Anterior Bilateral Throughout] Blood Pressure 150/94 150/94 O2 Sat by Pulse 95 94 96 Oximetry 09/12/18 09/12/18 09/12/18 00:01 00:15 00:31 Temperature Pulse Rate 92 H 94 H 92 H Pulse Rate [ Anterior Bilateral Throughout] Pulse Rate [ From Monitor] Respiratory 15 14 15 Rate Respiratory Rate [Anterior Bilateral Throughout] Blood Pressure 150/94 126/83 126/83 O2 Sat by Pulse 96 96 95 Oximetry 09/12/18 09/12/18 09/12/18 00:45 01:01 01:15 Temperature Pulse Rate 92 H 96 H 96 H Pulse Rate [ Anterior Bilateral Throughout] Pulse Rate [ From Monitor] Respiratory 14 14 17 Rate Respiratory Rate [Anterior Bilateral Throughout] Blood Pressure 126/83 131/93 131/93 O2 Sat by Pulse 97 92 96 Oximetry 09/12/18 09/12/18 09/12/18 01:31 01:45 01:53 Temperature Pulse Rate 92 H 92 H Pulse Rate [ 90 Anterior Bilateral Throughout] Pulse Rate [ From Monitor] Respiratory 16 22 Rate Respiratory 17 Rate [Anterior Bilateral Throughout] Blood Pressure 131/93 131/93 O2 Sat by Pulse 97 96 Oximetry 09/12/18 09/12/18 09/12/18 01:59 02:00 02:01 Temperature Pulse Rate 97 H Pulse Rate [ 94 H Anterior Bilateral Throughout] Pulse Rate [ 97 H From Monitor] Respiratory 18 18 Rate Respiratory 17 Rate [Anterior Bilateral Throughout] Blood Pressure 126/89 O2 Sat by Pulse 96 96 Oximetry 09/12/18 09/12/18 09/12/18 02:15 02:31 02:45 Temperature Pulse Rate 93 H 94 H 93 H Pulse Rate [ Anterior Bilateral Throughout] Pulse Rate [ From Monitor] Respiratory 19 18 14 Rate Respiratory Rate [Anterior Bilateral Throughout] Blood Pressure 126/89 126/89 126/89 O2 Sat by Pulse 96 97 97 Oximetry 09/12/18 09/12/18 09/12/18 03:01 03:15 03:31 Temperature Pulse Rate 93 H 92 H 93 H Pulse Rate [ Anterior Bilateral Throughout] Pulse Rate [ From Monitor] Respiratory 19 23 18 Rate Respiratory Rate [Anterior Bilateral Throughout] Blood Pressure 123/85 123/85 123/85 O2 Sat by Pulse 93 97 96 Oximetry 09/12/18 09/12/18 09/12/18 03:45 04:00 04:01 Temperature 99.1 F Pulse Rate 91 H 93 H Pulse Rate [ Anterior Bilateral Throughout] Pulse Rate [ 93 H From Monitor] Respiratory 17 18 18 Rate Respiratory Rate [Anterior Bilateral Throughout] Blood Pressure 123/85 132/76 O2 Sat by Pulse 96 Oximetry 09/12/18 09/12/18 09/12/18 04:09 04:15 04:31 Temperature Pulse Rate 92 H 92 H 91 H Pulse Rate [ Anterior Bilateral Throughout] Pulse Rate [ From Monitor] Respiratory 24 15 19 Rate Respiratory Rate [Anterior Bilateral Throughout] Blood Pressure 132/76 132/76 132/76 O2 Sat by Pulse 96 Oximetry 09/12/18 09/12/18 09/12/18 04:45 05:01 05:15 Temperature Pulse Rate 90 92 H 91 H Pulse Rate [ Anterior Bilateral Throughout] Pulse Rate [ From Monitor] Respiratory 17 16 12 Rate Respiratory Rate [Anterior Bilateral Throughout] Blood Pressure 132/76 132/76 140/90 O2 Sat by Pulse 99 Oximetry 09/12/18 09/12/18 09/12/18 05:31 05:45 06:01 Temperature Pulse Rate 91 H 91 H 91 H Pulse Rate [ Anterior Bilateral Throughout] Pulse Rate [ From Monitor] Respiratory 15 13 13 Rate Respiratory Rate [Anterior Bilateral Throughout] Blood Pressure 140/90 140/90 140/93 O2 Sat by Pulse 99 99 98 Oximetry 09/12/18 09/12/18 09/12/18 06:16 06:31 06:45 Temperature Pulse Rate 90 91 H Pulse Rate [ Anterior Bilateral Throughout] Pulse Rate [ From Monitor] Respiratory 18 13 Rate Respiratory Rate [Anterior Bilateral Throughout] Blood Pressure 140/93 140/93 O2 Sat by Pulse 98 99 99 Oximetry 09/12/18 09/12/18 07:01 07:26 Temperature Pulse Rate 91 H Pulse Rate [ Anterior Bilateral Throughout] Pulse Rate [ From Monitor] Respiratory 18 Rate Respiratory Rate [Anterior Bilateral Throughout] Blood Pressure 140/93 O2 Sat by Pulse 98 98 Oximetry - General Appearance General appearance: appears stated age, chronically ill, fatigue, frail EENT: ATNC, PERRL Neck: no JVD, no thyromegaly Respiratory: Present: Wheezes Cardiology: regular, tachycardia, S1S2 Gastrointestinal: normal, normoactive bowel sounds Integumentary: warm and dry Neurologic: confused, disoriented Musculoskeletal: other (-edema ) Psychiatric: agitated (in restraints ) - Lab 09/10/18 05:07 09/11/18 04:38 Most recent lab results Calcium 10.7 mg/dL (8.4-10.2) H 09/11/18 04:38 Magnesium 2.40 mg/dL (1.7-2.3) H 09/11/18 23:44 - Imaging Chest x-ray: report reviewed - Allied health notes Allied health notes reviewed: nursing Medications & Allergies - Medications Allergies/Adverse Reactions: Allergies No Known Allergies Allergy (Verified 09/02/18 13:48) Home Medications: Home Medications Medication Instructions Recorded Confirmed Last Taken Type Hydrochlorothiazide 25 mg PO DAILY 09/07/18 09/07/18 Unknown History Lisinopril 5 mg PO DAILY 09/07/18 09/07/18 Unknown History Rosuvastatin Calcium 40 mg PO DAILY 09/07/18 09/07/18 Unknown History Tamsulosin 0.4 mg PO DAILY 09/07/18 09/07/18 Unknown History metFORMIN 500 mg PO BID 09/07/18 09/07/18 Unknown History Active Medications: Generic Name Dose Route Start Last Admin Trade Name Freq PRN Reason Stop Dose Admin Acetaminophen 650 mg 09/02/18 15:03 Tylenol PO Q4H PRN Pain, Mild (1-3) Albuterol 2.5 mg 09/06/18 17:35 09/11/18 13:11 Proventil IH 2.5 mg Q4HRT PRN Administration Shortness Of Breath Albuterol/Ipratropium 1 ampul 09/06/18 17:35 09/12/18 07:27 Duoneb *Not For Prn Use* IH Not Given Q6HRT ROXY Lipase/Protease/Amylase 1 each 09/07/18 14:01 Pancreazzulay Winston 10,500 Unit FEEDTUBE PRN PRN For Clogged Feeding Tube Arformoterol Tartrate 15 mcg 09/06/18 20:45 09/12/18 07:27 Brovana Nebu IH Not Given Q12HRT ROXY Atorvastatin Calcium 40 mg 09/02/18 22:00 09/11/18 21:48 Lipitor PO 40 mg QHS ROXY Administration Bisacodyl 10 mg 09/02/18 15:03 Dulcolax ND QDAY PRN Constipation Budesonide 0.5 mg 09/07/18 08:00 09/12/18 07:27 Pulmicort IH Not Given Q12HRT ROXY Bupropion HCl 150 mg 09/11/18 10:00 09/11/18 22:02 Wellbutrin PO Not Given BID ROXY Dextrose 50 ml 09/08/18 10:58 D50w (25gm) Syringe IV PRN PRN Hypoglycemia Docusate Sodium 100 mg 09/10/18 12:00 09/11/18 22:00 Colace FEEDTUBE Not Given BID ROXY Enoxaparin Sodium 40 mg 09/08/18 15:00 09/11/18 09:45 Lovenox SUB-Q 40 mg QDAY@1000 ROXY Administration Haloperidol Lactate 5 mg 09/09/18 14:18 09/11/18 13:27 Haldol IV 5 mg Q6H PRN Administration Agitation Hydrochlorothiazide 25 mg 09/07/18 15:00 09/11/18 09:43 Hctz PO 25 mg QDAY ROXY Administration Hydrocortisone Acetate 1 applic 09/04/18 16:00 09/11/18 21:48 Proctosol-Hc ND 1 applic Q8HR ROXY Administration Hydrophilic Ointment 1 applic 09/06/18 15:34 Vaseline Lip Therapy TP Q2H PRN Dry Lips Ceftriaxone Sodium 1 gm in 50 mls @ 100 mls/hr 09/06/18 10:00 09/11/18 09:47 Rocephin/Ns 1 Gm/50 Ml IV 09/12/18 10:29 100 mls/hr Q24HR ROXY Administration Protocol Dextrose 1,000 mls @ 100 mls/hr 09/09/18 07:00 09/10/18 09:16 D5w IV 100 mls/hr DIRECT ROXY Administration Insulin Glargine 10 units 09/09/18 22:00 09/11/18 22:02 Lantus SUB-Q Not Given QHS [facility] Insulin Human Lispro 0 unit 09/08/18 12:00 09/12/18 07:15 Humalog SUB-Q Not Given Q6HR [facility] Protocol Lactulose 20 gm 09/08/18 18:29 Cephulac PO Q6HR PRN Delerium Lansoprazole 30 mg 09/08/18 10:00 09/11/18 09:46 Prevacid Solutab FEEDTUBE 30 mg QDAY ROXY Administration Magnesium Hydroxide 30 ml 09/02/18 15:03 Milk Of Magnesia PO Q4H PRN Constipation Methylprednisolone Sodium Succinate 60 mg 09/09/18 22:00 09/11/18 21:48 Solu-Medrol IV 60 mg Q12HR ROXY Administration Metoclopramide HCl 10 mg 09/02/18 15:03 Reglan PO Q6H PRN Nausea And Vomiting Multi-Ingred Cream/Lotion/Oil/Oint 1 applic 09/06/18 15:34 Artificial Tears Ophth Oint OU Q4H PRN Dry Eye(s) Ondansetron HCl 4 mg 09/02/18 15:03 Zofran IV Q8H PRN Nausea And Vomiting Promethazine HCl 25 mg 09/02/18 15:03 Phenergan ND Q6H PRN Nausea And Vomiting Simple Syrup 15 ml 09/07/18 14:01 Simple Syrup FEEDTUBE PRN PRN Hypoglycemia Simple Syrup 30 ml 09/07/18 14:01 Simple Syrup FEEDTUBE PRN PRN Hypoglycemia Sodium Bicarbonate 325 mg 09/07/18 14:01 Sodium Bicarbonate FEEDTUBE PRN PRN For Clogged Feeding Tube Sodium Chloride 10 ml 09/02/18 15:03 Sodium Chloride Flush Syringe 10 Ml IV PRN PRN LINE FLUSH Tamsulosin HCl 0.4 mg 09/07/18 15:00 09/11/18 09:44 Flomax PO 0.4 mg QDAY ROXY Administration
[2018-09-12] MEDS: PROCTOSOL-HC PR SCH (08:00)
[2018-09-12 08:15] LABS: Hematocrit 44.9 % (35.5-45.6); Hemoglobin 14.6 gm/dl (11.8-15.2); Mean Corpuscular HGB Conc 32 % (32-34); Mean Corpuscular Volume 91 fl (84-94); Platelet Count 124 K/mm3 (140-440); Red Blood Count 4.91 M/mm3 (3.65-5.03); Red Cell Distribution Width 14.5 % (13.2-15.2)
[2018-09-12 08:32] LABS: BUN/Creatinine Ratio 49; Blood Urea Nitrogen 34 mg/dL (9-20); Calcium 10.3 mg/dL (8.4-10.2); Hemolysis Index 18
[2018-09-12 09:26] LABS: Basophils % (Manual) 0 % (0.0-1.8); Eosinophils % (Manual) 0 % (0.0-4.3); Total Cells Counted 100
[2018-09-12 09:27] LABS: Anisocytosis 1+; Platelet Estimate Consistent w Auto
--- NOTE | 2018-09-12 11:09 | Progress Note ---
Assessment and Plan Acute hypoxemic respiratory failure, s/p mechanical ventilatory support. Acute chronic obstructive pulmonary disease exacerbation. Pneumonia, right lower lobe present at presentation, possibly aspiration. Obesity. Acute encephalopathy. Possible hyperthyroidism. Elevated serum ammonia, now resolved. Elevated D-dimer with a negative pulmonary embolism workup. Coagulopathy. Hyperglycemia. Acute kidney injury, resolved. Hypernatremia ( resolved) - continue to wean oxygen to keep O2 Sat's > 90% -nocturnal BIPAP support - complete zithromax & Rocephin for CAP empiric coverage -steroid taper - TOBACCO [employer] to evaluate swallow function, prior to initiation of oral feeding - continue bronchodilators with pulmonary hygiene per RT - PT/OT as tolerated - GI & VTE prophylaxis - glycemic control with SSI for target BG 140 - 180 mg/dL - chronic disease medications ... care plan discussed ICU-IDT team during bedside rounds OK to transfer to [facility] Subjective Date of service: 09/12/18 Principal diagnosis: Ac Hypoxemic Resp failure; AE-COPD; Pneumonia (Aspiration); Ac encephalopat Interval history: Patient is seen today for: Acute hypoxemic respiratory failure, now on mechanical ventilatory support; Acute chronic obstructive pulmonary disease exacerbation; Pneumonia, right lower lobe present at presentation, possibly aspiration; Obesity; Acute encephalopathy. Seen and examined at bedside; 24hour events reviewed; nursing and respiratory care staff consulted; no adverse overnight events reported to me; extubated yesterday and is doing well from a respiratory standpoint. Tolerated BIPAP last night: sitting out of bed in a chair. Tremulous on and off with some confusion. Objective Vital Signs - 12hr 09/11/18 09/11/18 09/11/18 23:15 23:31 23:34 Temperature Pulse Rate 94 H 94 H 95 H Pulse Rate [ Anterior Bilateral Throughout] Pulse Rate [ From Monitor] Respiratory 17 15 20 Rate Respiratory Rate [Anterior Bilateral Throughout] Blood Pressure 150/94 150/94 150/94 O2 Sat by Pulse 96 97 95 Oximetry 09/11/18 09/12/18 09/12/18 23:45 00:00 00:01 Temperature 98.9 F Pulse Rate 94 H 92 H Pulse Rate [ Anterior Bilateral Throughout] Pulse Rate [ 95 H From Monitor] Respiratory 18 15 15 Rate Respiratory Rate [Anterior Bilateral Throughout] Blood Pressure 150/94 150/94 O2 Sat by Pulse 94 96 96 Oximetry 09/12/18 09/12/18 09/12/18 00:15 00:31 00:45 Temperature Pulse Rate 94 H 92 H 92 H Pulse Rate [ Anterior Bilateral Throughout] Pulse Rate [ From Monitor] Respiratory 14 15 14 Rate Respiratory Rate [Anterior Bilateral Throughout] Blood Pressure 126/83 126/83 126/83 O2 Sat by Pulse 96 95 97 Oximetry 09/12/18 09/12/18 09/12/18 01:01 01:15 01:31 Temperature Pulse Rate 96 H 96 H 92 H Pulse Rate [ Anterior Bilateral Throughout] Pulse Rate [ From Monitor] Respiratory 14 17 16 Rate Respiratory Rate [Anterior Bilateral Throughout] Blood Pressure 131/93 131/93 131/93 O2 Sat by Pulse 92 96 97 Oximetry 09/12/18 09/12/18 09/12/18 01:45 01:53 01:59 Temperature Pulse Rate 92 H Pulse Rate [ 90 94 H Anterior Bilateral Throughout] Pulse Rate [ From Monitor] Respiratory 22 Rate Respiratory 17 17 Rate [Anterior Bilateral Throughout] Blood Pressure 131/93 O2 Sat by Pulse 96 Oximetry 09/12/18 09/12/18 09/12/18 02:00 02:01 02:15 Temperature Pulse Rate 97 H 93 H Pulse Rate [ Anterior Bilateral Throughout] Pulse Rate [ 97 H From Monitor] Respiratory 18 18 19 Rate Respiratory Rate [Anterior Bilateral Throughout] Blood Pressure 126/89 126/89 O2 Sat by Pulse 96 96 96 Oximetry 09/12/18 09/12/18 09/12/18 02:31 02:45 03:01 Temperature Pulse Rate 94 H 93 H 93 H Pulse Rate [ Anterior Bilateral Throughout] Pulse Rate [ From Monitor] Respiratory 18 14 19 Rate Respiratory Rate [Anterior Bilateral Throughout] Blood Pressure 126/89 126/89 123/85 O2 Sat by Pulse 97 97 93 Oximetry 09/12/18 09/12/18 09/12/18 03:15 03:31 03:45 Temperature Pulse Rate 92 H 93 H 91 H Pulse Rate [ Anterior Bilateral Throughout] Pulse Rate [ From Monitor] Respiratory 23 18 17 Rate Respiratory Rate [Anterior Bilateral Throughout] Blood Pressure 123/85 123/85 123/85 O2 Sat by Pulse 97 96 Oximetry 09/12/18 09/12/18 09/12/18 04:00 04:01 04:09 Temperature 99.1 F Pulse Rate 93 H 92 H Pulse Rate [ Anterior Bilateral Throughout] Pulse Rate [ 93 H From Monitor] Respiratory 18 18 24 Rate Respiratory Rate [Anterior Bilateral Throughout] Blood Pressure 132/76 132/76 O2 Sat by Pulse 96 96 Oximetry 09/12/18 09/12/18 09/12/18 04:15 04:31 04:45 Temperature Pulse Rate 92 H 91 H 90 Pulse Rate [ Anterior Bilateral Throughout] Pulse Rate [ From Monitor] Respiratory 15 19 17 Rate Respiratory Rate [Anterior Bilateral Throughout] Blood Pressure 132/76 132/76 132/76 O2 Sat by Pulse Oximetry 09/12/18 09/12/18 09/12/18 05:01 05:15 05:31 Temperature Pulse Rate 92 H 91 H 91 H Pulse Rate [ Anterior Bilateral Throughout] Pulse Rate [ From Monitor] Respiratory 16 12 15 Rate Respiratory Rate [Anterior Bilateral Throughout] Blood Pressure 132/76 140/90 140/90 O2 Sat by Pulse 99 99 Oximetry 09/12/18 09/12/18 09/12/18 05:45 06:01 06:16 Temperature Pulse Rate 91 H 91 H Pulse Rate [ Anterior Bilateral Throughout] Pulse Rate [ From Monitor] Respiratory 13 13 Rate Respiratory Rate [Anterior Bilateral Throughout] Blood Pressure 140/90 140/93 O2 Sat by Pulse 99 98 98 Oximetry 09/12/18 09/12/18 09/12/18 06:31 06:45 07:01 Temperature Pulse Rate 90 91 H 91 H Pulse Rate [ Anterior Bilateral Throughout] Pulse Rate [ From Monitor] Respiratory 18 13 18 Rate Respiratory Rate [Anterior Bilateral Throughout] Blood Pressure 140/93 140/93 140/93 O2 Sat by Pulse 99 99 98 Oximetry 09/12/18 09/12/18 09/12/18 07:15 07:26 07:31 Temperature Pulse Rate 91 H 91 H Pulse Rate [ Anterior Bilateral Throughout] Pulse Rate [ From Monitor] Respiratory 16 14 Rate Respiratory Rate [Anterior Bilateral Throughout] Blood Pressure 140/93 142/95 O2 Sat by Pulse 99 98 99 Oximetry 09/12/18 09/12/18 09/12/18 07:45 08:01 08:15 Temperature Pulse Rate 112 H Pulse Rate [ Anterior Bilateral Throughout] Pulse Rate [ From Monitor] Respiratory 20 19 22 Rate Respiratory Rate [Anterior Bilateral Throughout] Blood Pressure 142/95 142/95 142/86 O2 Sat by Pulse 98 99 98 Oximetry 09/12/18 09/12/18 09/12/18 08:31 08:45 09:01 Temperature Pulse Rate 157 H 87 Pulse Rate [ Anterior Bilateral Throughout] Pulse Rate [ From Monitor] Respiratory 19 30 H 19 Rate Respiratory Rate [Anterior Bilateral Throughout] Blood Pressure 142/86 142/86 136/89 O2 Sat by Pulse 99 99 99 Oximetry 09/12/18 09/12/18 09/12/18 09:15 09:31 09:45 Temperature Pulse Rate 92 H 95 H Pulse Rate [ Anterior Bilateral Throughout] Pulse Rate [ From Monitor] Respiratory 19 18 18 Rate Respiratory Rate [Anterior Bilateral Throughout] Blood Pressure 136/89 136/89 120/70 O2 Sat by Pulse 98 96 96 Oximetry Constitutional: appears uncomfortable, other (elderly looking CM, normocephalic and atraumatic sitting out of bed in a chair) Eyes: non-icteric ENT: oropharynx moist, other Neck: supple, no lymphadenopathy, no JVD, other (large neck circumference) Effort: mildly labored Ascultation: Bilateral: diminished breath sounds, rhonchi Percussion: Bilateral: not dull Cardiovascular: regular rate and rhythm, other (S1,S2, no murmurs, gallops or rubs) Gastrointestinal: normoactive bowel sounds, soft, non-tender, non-distended Integumentary: normal Extremities: no cyanosis, no edema, pink and warm, pulses normal Neurologic: non-focal exam, pupils equal and round, motor strength normal and, other (intention tremors) Psychiatric: other (unable to assess adequately) CBC and BMP: 09/12/18 08:05 09/12/18 08:05 ABG, PT/INR, D-dimer: ABG POC ABG pH 7.534 (7.35-7.45) H 09/12/18 05:29 POC ABG pCO2 50.4 (35-45) H 09/12/18 05:29 POC ABG pO2 86 (80-105) 09/12/18 05:29 POC ABG HCO3 42.5 09/12/18 05:29 POC ABG Total CO2 44 09/12/18 05:29 POC ABG O2 Sat 97 09/12/18 05:29 PT/INR, D-dimer PT 21.8 Sec. (12.2-14.9) H 09/03/18 11:26 INR 1.86 (0.87-1.13) H 09/03/18 11:26 D-Dimer 4180.35 ng/mlDDU (0-234) H 09/02/18 12:35 Abnormal lab findings: Abnormal Labs 09/02/18 09/02/18 09/02/18 12:35 12:35 12:35 WBC RBC 6.15 H Hgb 18.7 H Hct 57.7 H MCV RDW 15.5 H Plt Count Lymph % (Auto) 8.8 L Lymph # 0.9 L Seg Neutrophils % 83.2 H Seg Neuts % (Manual) Lymphocytes % (Manual) Seg Neutrophils # 8.9 H Seg Neutrophils # Man Lymphocytes # (Manual) PT 20.8 H INR 1.74 H D-Dimer 4180.35 H POC ABG pH POC ABG pCO2 POC ABG pO2 Sodium Potassium Chloride Carbon Dioxide BUN Creatinine Glucose POC Glucose Lactic Acid Calcium Magnesium Total Bilirubin Direct Bilirubin AST Ammonia C-Reactive Protein Total Protein Albumin Triglycerides HDL Cholesterol Lipase TSH Free T4 Urine WBC (Auto) Salicylates < 0.3 L Acetaminophen 09/02/18 09/02/18 09/02/18 12:35 12:35 12:35 WBC RBC Hgb Hct MCV RDW Plt Count Lymph % (Auto) Lymph # Seg Neutrophils % Seg Neuts % (Manual) Lymphocytes % (Manual) Seg Neutrophils # Seg Neutrophils # Man Lymphocytes # (Manual) PT INR D-Dimer POC ABG pH POC ABG pCO2 POC ABG pO2 Sodium Potassium Chloride Carbon Dioxide BUN Creatinine Glucose POC Glucose 167 H Lactic Acid 3.20 H* Calcium Magnesium Total Bilirubin Direct Bilirubin AST Ammonia C-Reactive Protein Total Protein Albumin Triglycerides HDL Cholesterol Lipase TSH Free T4 Urine WBC (Auto) Salicylates Acetaminophen < 5.0 L 09/02/18 09/02/18 09/02/18 13:36 14:40 16:45 WBC RBC Hgb Hct MCV RDW Plt Count Lymph % (Auto) Lymph # Seg Neutrophils % Seg Neuts % (Manual) Lymphocytes % (Manual) Seg Neutrophils # Seg Neutrophils # Man Lymphocytes # (Manual) PT INR D-Dimer POC ABG pH POC ABG pCO2 POC ABG pO2 Sodium 159 H Potassium Chloride 114.7 H Carbon Dioxide BUN 90 H Creatinine Glucose 172 H POC Glucose Lactic Acid 2.30 H* Calcium 10.8 H Magnesium Total Bilirubin Direct Bilirubin 0.3 H AST Ammonia C-Reactive Protein Total Protein Albumin 2.6 L Triglycerides HDL Cholesterol Lipase 81 H TSH < 0.005 L Free T4 2.40 H Urine WBC (Auto) Salicylates Acetaminophen 09/03/18 09/03/18 09/03/18 11:26 11:26 11:26 WBC RBC Hgb Hct MCV RDW Plt Count Lymph % (Auto) Lymph # Seg Neutrophils % Seg Neuts % (Manual) Lymphocytes % (Manual) Seg Neutrophils # Seg Neutrophils # Man Lymphocytes # (Manual) PT 21.8 H INR 1.86 H D-Dimer POC ABG pH POC ABG pCO2 POC ABG pO2 Sodium 160 H Potassium Chloride 122.6 H Carbon Dioxide BUN 69 H Creatinine Glucose 127 H POC Glucose Lactic Acid Calcium Magnesium Total Bilirubin Direct Bilirubin AST Ammonia C-Reactive Protein Total Protein Albumin 2.1 L Triglycerides HDL Cholesterol Lipase TSH Free T4 Urine WBC (Auto) Salicylates Acetaminophen 09/03/18 09/03/18 09/03/18 11:26 15:39 20:23 WBC RBC Hgb Hct MCV RDW Plt Count Lymph % (Auto) Lymph # Seg Neutrophils % Seg Neuts % (Manual) Lymphocytes % (Manual) Seg Neutrophils # Seg Neutrophils # Man Lymphocytes # (Manual) PT INR D-Dimer POC ABG pH POC ABG pCO2 POC ABG pO2 Sodium 160 H 160 H Potassium Chloride Carbon Dioxide BUN Creatinine Glucose POC Glucose Lactic Acid Calcium Magnesium Total Bilirubin Direct Bilirubin AST Ammonia 75.0 H C-Reactive Protein Total Protein Albumin Triglycerides HDL Cholesterol Lipase TSH Free T4 Urine WBC (Auto) Salicylates Acetaminophen 09/03/18 09/04/18 09/04/18 Unknown 02:38 05:20 WBC RBC Hgb Hct MCV RDW Plt Count Lymph % (Auto) Lymph # Seg Neutrophils % Seg Neuts % (Manual) Lymphocytes % (Manual) Seg Neutrophils # Seg Neutrophils # Man Lymphocytes # (Manual) PT INR D-Dimer POC ABG pH POC ABG pCO2 POC ABG pO2 Sodium 160 H 166 H* Potassium Chloride 129.2 H Carbon Dioxide BUN 57 H Creatinine Glucose 137 H POC Glucose Lactic Acid Calcium Magnesium Total Bilirubin Direct Bilirubin AST Ammonia C-Reactive Protein Total Protein 5.8 L Albumin 2.7 L Triglycerides 150 H HDL Cholesterol 21 L Lipase TSH Free T4 Urine WBC (Auto) Salicylates Acetaminophen 09/04/18 09/04/18 09/04/18 05:20 09:11 13:35 WBC RBC 5.12 H Hgb 15.5 H D 15.6 H Hct 48.0 H D 48.1 H MCV RDW 15.9 H Plt Count Lymph % (Auto) 11.8 L Lymph # 0.8 L Seg Neutrophils % 80.1 H Seg Neuts % (Manual) Lymphocytes % (Manual) Seg Neutrophils # Seg Neutrophils # Man Lymphocytes # (Manual) PT INR D-Dimer POC ABG pH POC ABG pCO2 POC ABG pO2 Sodium 166 H* Potassium Chloride Carbon Dioxide BUN Creatinine Glucose POC Glucose Lactic Acid Calcium Magnesium Total Bilirubin Direct Bilirubin AST Ammonia C-Reactive Protein Total Protein Albumin Triglycerides HDL Cholesterol Lipase TSH Free T4 Urine WBC (Auto) Salicylates Acetaminophen 09/04/18 09/04/18 09/04/18 13:35 21:04 21:04 WBC RBC Hgb 16.9 H Hct 58.3 H D MCV RDW Plt Count Lymph % (Auto) Lymph # Seg Neutrophils % Seg Neuts % (Manual) Lymphocytes % (Manual) Seg Neutrophils # Seg Neutrophils # Man Lymphocytes # (Manual) PT INR D-Dimer POC ABG pH POC ABG pCO2 POC ABG pO2 Sodium 164 H* 159 H Potassium Chloride Carbon Dioxide BUN Creatinine Glucose POC Glucose Lactic Acid Calcium Magnesium Total Bilirubin Direct Bilirubin AST Ammonia C-Reactive Protein Total Protein Albumin Triglycerides HDL Cholesterol Lipase TSH Free T4 Urine WBC (Auto) Salicylates Acetaminophen 09/05/18 09/05/18 09/05/18 01:11 02:51 03:17 WBC RBC Hgb Hct MCV RDW Plt Count Lymph % (Auto) Lymph # Seg Neutrophils % Seg Neuts % (Manual) Lymphocytes % (Manual) Seg Neutrophils # Seg Neutrophils # Man Lymphocytes # (Manual) PT INR D-Dimer POC ABG pH 7.340 L POC ABG pCO2 57.8 H POC ABG pO2 74 L Sodium 152 H Potassium Chloride Carbon Dioxide BUN Creatinine Glucose POC Glucose 116 H Lactic Acid Calcium Magnesium Total Bilirubin Direct Bilirubin AST Ammonia C-Reactive Protein Total Protein Albumin Triglycerides HDL Cholesterol Lipase TSH Free T4 Urine WBC (Auto) Salicylates Acetaminophen 09/05/18 09/05/18 09/05/18 07:45 10:34 15:21 WBC RBC Hgb Hct MCV RDW Plt Count Lymph % (Auto) Lymph # Seg Neutrophils % Seg Neuts % (Manual) Lymphocytes % (Manual) Seg Neutrophils # Seg Neutrophils # Man Lymphocytes # (Manual) PT INR D-Dimer POC ABG pH POC ABG pCO2 POC ABG pO2 Sodium 156 H 153 H Potassium Chloride Carbon Dioxide BUN Creatinine Glucose POC Glucose Lactic Acid Calcium Magnesium Total Bilirubin Direct Bilirubin AST Ammonia 61.0 H C-Reactive Protein Total Protein Albumin Triglycerides HDL Cholesterol Lipase TSH Free T4 Urine WBC (Auto) Salicylates Acetaminophen 09/06/18 09/06/18 09/06/18 05:10 05:10 08:43 WBC RBC 5.06 H Hgb Hct 47.8 H D MCV RDW 15.3 H Plt Count Lymph % (Auto) Lymph # Seg Neutrophils % Seg Neuts % (Manual) Lymphocytes % (Manual) Seg Neutrophils # Seg Neutrophils # Man Lymphocytes # (Manual) PT INR D-Dimer POC ABG pH POC ABG pCO2 POC ABG pO2 Sodium 155 H 150 H Potassium Chloride 117.0 H Carbon Dioxide BUN 36 H Creatinine Glucose 143 H POC Glucose Lactic Acid Calcium Magnesium Total Bilirubin Direct Bilirubin AST Ammonia C-Reactive Protein Total Protein Albumin Triglycerides HDL Cholesterol Lipase TSH Free T4 Urine WBC (Auto) Salicylates Acetaminophen 09/06/18 09/06/18 09/06/18 13:21 15:11 16:23 WBC RBC Hgb Hct MCV RDW Plt Count Lymph % (Auto) Lymph # Seg Neutrophils % Seg Neuts % (Manual) Lymphocytes % (Manual) Seg Neutrophils # Seg Neutrophils # Man Lymphocytes # (Manual) PT INR D-Dimer POC ABG pH POC ABG pCO2 49.1 H POC ABG pO2 107 H Sodium 151 H Potassium Chloride Carbon Dioxide BUN Creatinine Glucose POC Glucose 120 H Lactic Acid Calcium Magnesium Total Bilirubin Direct Bilirubin AST Ammonia C-Reactive Protein Total Protein Albumin Triglycerides HDL Cholesterol Lipase TSH Free T4 Urine WBC (Auto) Salicylates Acetaminophen 09/06/18 09/07/18 09/07/18 21:58 00:25 02:49 WBC RBC 5.32 H Hgb 16.1 H Hct 50.2 H MCV 95 H RDW 15.6 H Plt Count Lymph % (Auto) Lymph # Seg Neutrophils % Seg Neuts % (Manual) Lymphocytes % (Manual) Seg Neutrophils # Seg Neutrophils # Man Lymphocytes # (Manual) PT INR D-Dimer POC ABG pH POC ABG pCO2 POC ABG pO2 Sodium 150 H Potassium Chloride Carbon Dioxide BUN Creatinine Glucose POC Glucose Lactic Acid Calcium Magnesium Total Bilirubin Direct Bilirubin AST Ammonia C-Reactive Protein 9.00 H Total Protein Albumin Triglycerides HDL Cholesterol Lipase TSH Free T4 Urine WBC (Auto) Salicylates Acetaminophen 09/07/18 09/07/18 09/07/18 02:49 03:43 09:17 WBC RBC Hgb Hct MCV RDW Plt Count Lymph % (Auto) Lymph # Seg Neutrophils % Seg Neuts % (Manual) Lymphocytes % (Manual) Seg Neutrophils # Seg Neutrophils # Man Lymphocytes # (Manual) PT INR D-Dimer POC ABG pH POC ABG pCO2 46.5 H POC ABG pO2 Sodium 149 H 155 H Potassium 5.2 H D Chloride 116.1 H Carbon Dioxide 21 L BUN 47 H Creatinine Glucose 122 H POC Glucose Lactic Acid Calcium Magnesium Total Bilirubin 1.80 H Direct Bilirubin AST 83 H Ammonia C-Reactive Protein Total Protein Albumin 1.8 L Triglycerides HDL Cholesterol Lipase TSH Free T4 Urine WBC (Auto) Salicylates Acetaminophen 09/07/18 09/08/18 09/08/18 16:02 00:14 00:51 WBC RBC Hgb Hct MCV RDW Plt Count Lymph % (Auto) Lymph # Seg Neutrophils % Seg Neuts % (Manual) Lymphocytes % (Manual) Seg Neutrophils # Seg Neutrophils # Man Lymphocytes # (Manual) PT INR D-Dimer POC ABG pH POC ABG pCO2 POC ABG pO2 Sodium 156 H 154 H Potassium Chloride Carbon Dioxide BUN Creatinine Glucose POC Glucose Lactic Acid Calcium Magnesium Total Bilirubin Direct Bilirubin AST Ammonia C-Reactive Protein Total Protein Albumin Triglycerides HDL Cholesterol Lipase TSH Free T4 Urine WBC (Auto) 41.0 H Salicylates Acetaminophen 09/08/18 09/08/18 09/08/18 04:22 04:22 04:46 WBC RBC Hgb Hct MCV 95 H RDW 15.3 H Plt Count Lymph % (Auto) Lymph # Seg Neutrophils % Seg Neuts % (Manual) Lymphocytes % (Manual) Seg Neutrophils # Seg Neutrophils # Man Lymphocytes # (Manual) PT INR D-Dimer POC ABG pH POC ABG pCO2 55.3 H POC ABG pO2 77 L Sodium 153 H Potassium 3.5 L D Chloride 114.8 H Carbon Dioxide BUN 69 H Creatinine Glucose 277 H POC Glucose Lactic Acid Calcium Magnesium Total Bilirubin Direct Bilirubin AST 44 H Ammonia C-Reactive Protein Total Protein 5.6 L Albumin 2.4 L Triglycerides HDL Cholesterol Lipase TSH Free T4 Urine WBC (Auto) Salicylates Acetaminophen 09/08/18 09/08/18 09/08/18 08:40 12:03 15:43 WBC RBC Hgb Hct MCV RDW Plt Count Lymph % (Auto) Lymph # Seg Neutrophils % Seg Neuts % (Manual) Lymphocytes % (Manual) Seg Neutrophils # Seg Neutrophils # Man Lymphocytes # (Manual) PT INR D-Dimer POC ABG pH POC ABG pCO2 POC ABG pO2 Sodium 154 H 152 H Potassium Chloride Carbon Dioxide BUN Creatinine Glucose POC Glucose 186 H Lactic Acid Calcium Magnesium Total Bilirubin Direct Bilirubin AST Ammonia C-Reactive Protein Total Protein Albumin Triglycerides HDL Cholesterol Lipase TSH Free T4 Urine WBC (Auto) Salicylates Acetaminophen 09/08/18 09/08/18 09/09/18 17:57 23:54 04:01 WBC RBC Hgb Hct MCV 95 H RDW 15.3 H Plt Count 130 L Lymph % (Auto) Lymph # Seg Neutrophils % Seg Neuts % (Manual) Lymphocytes % (Manual) Seg Neutrophils # Seg Neutrophils # Man Lymphocytes # (Manual) PT INR D-Dimer POC ABG pH POC ABG pCO2 POC ABG pO2 Sodium Potassium Chloride Carbon Dioxide BUN Creatinine Glucose POC Glucose 252 H 297 H Lactic Acid Calcium Magnesium Total Bilirubin Direct Bilirubin AST Ammonia C-Reactive Protein Total Protein Albumin Triglycerides HDL Cholesterol Lipase TSH Free T4 Urine WBC (Auto) Salicylates Acetaminophen 09/09/18 09/09/18 09/09/18 04:01 04:33 05:32 WBC RBC Hgb Hct MCV RDW Plt Count Lymph % (Auto) Lymph # Seg Neutrophils % Seg Neuts % (Manual) Lymphocytes % (Manual) Seg Neutrophils # Seg Neutrophils # Man Lymphocytes # (Manual) PT INR D-Dimer POC ABG pH 7.267 L POC ABG pCO2 76.6 H POC ABG pO2 69 L Sodium 150 H Potassium Chloride 110.9 H Carbon Dioxide 32 H BUN 62 H Creatinine Glucose 220 H POC Glucose 196 H Lactic Acid Calcium 10.3 H Magnesium Total Bilirubin Direct Bilirubin AST Ammonia C-Reactive Protein Total Protein Albumin Triglycerides HDL Cholesterol Lipase TSH Free T4 Urine WBC (Auto) Salicylates Acetaminophen 09/09/18 09/09/18 09/09/18 11:40 17:57 23:36 WBC RBC Hgb Hct MCV RDW Plt Count Lymph % (Auto) Lymph # Seg Neutrophils % Seg Neuts % (Manual) Lymphocytes % (Manual) Seg Neutrophils # Seg Neutrophils # Man Lymphocytes # (Manual) PT INR D-Dimer POC ABG pH POC ABG pCO2 POC ABG pO2 Sodium Potassium Chloride Carbon Dioxide BUN Creatinine Glucose POC Glucose 217 H 172 H 131 H Lactic Acid Calcium Magnesium Total Bilirubin Direct Bilirubin AST Ammonia C-Reactive Protein Total Protein Albumin Triglycerides HDL Cholesterol Lipase TSH Free T4 Urine WBC (Auto) Salicylates Acetaminophen 09/10/18 09/10/18 09/10/18 05:07 05:07 05:51 WBC RBC Hgb Hct MCV RDW Plt Count 115 L Lymph % (Auto) Lymph # Seg Neutrophils % Seg Neuts % (Manual) 95.0 H Lymphocytes % (Manual) 3.0 L Seg Neutrophils # Seg Neutrophils # Man Lymphocytes # (Manual) 0.2 L PT INR D-Dimer POC ABG pH POC ABG pCO2 POC ABG pO2 Sodium 146 H Potassium Chloride Carbon Dioxide 33 H BUN 46 H Creatinine 0.7 L Glucose 174 H POC Glucose 169 H Lactic Acid Calcium 10.3 H Magnesium Total Bilirubin Direct Bilirubin AST Ammonia C-Reactive Protein Total Protein Albumin Triglycerides HDL Cholesterol Lipase TSH Free T4 Urine WBC (Auto) Salicylates Acetaminophen 09/10/18 09/10/18 09/10/18 14:25 15:02 17:48 WBC RBC Hgb Hct MCV RDW Plt Count Lymph % (Auto) Lymph # Seg Neutrophils % Seg Neuts % (Manual) Lymphocytes % (Manual) Seg Neutrophils # Seg Neutrophils # Man Lymphocytes # (Manual) PT INR D-Dimer POC ABG pH POC ABG pCO2 62.6 H POC ABG pO2 Sodium Potassium Chloride Carbon Dioxide BUN Creatinine Glucose POC Glucose 240 H 185 H Lactic Acid Calcium Magnesium Total Bilirubin Direct Bilirubin AST Ammonia C-Reactive Protein Total Protein Albumin Triglycerides HDL Cholesterol Lipase TSH Free T4 Urine WBC (Auto) Salicylates Acetaminophen 09/10/18 09/11/18 09/11/18 23:28 04:25 04:38 WBC RBC Hgb Hct MCV RDW Plt Count Lymph % (Auto) Lymph # Seg Neutrophils % Seg Neuts % (Manual) Lymphocytes % (Manual) Seg Neutrophils # Seg Neutrophils # Man Lymphocytes # (Manual) PT INR D-Dimer POC ABG pH 7.487 H POC ABG pCO2 52.3 H POC ABG pO2 61 L Sodium 146 H Potassium Chloride Carbon Dioxide 37 H BUN 38 H Creatinine Glucose 254 H POC Glucose 132 H Lactic Acid Calcium 10.7 H Magnesium Total Bilirubin Direct Bilirubin AST Ammonia C-Reactive Protein Total Protein Albumin Triglycerides HDL Cholesterol Lipase TSH Free T4 Urine WBC (Auto) Salicylates Acetaminophen 09/11/18 09/11/18 09/11/18 05:09 11:58 17:54 WBC RBC Hgb Hct MCV RDW Plt Count Lymph % (Auto) Lymph # Seg Neutrophils % Seg Neuts % (Manual) Lymphocytes % (Manual) Seg Neutrophils # Seg Neutrophils # Man Lymphocytes # (Manual) PT INR D-Dimer POC ABG pH 7.538 H POC ABG pCO2 50.4 H POC ABG pO2 78 L Sodium Potassium Chloride Carbon Dioxide BUN Creatinine Glucose POC Glucose 190 H 126 H Lactic Acid Calcium Magnesium Total Bilirubin Direct Bilirubin AST Ammonia C-Reactive Protein Total Protein Albumin Triglycerides HDL Cholesterol Lipase TSH Free T4 Urine WBC (Auto) Salicylates Acetaminophen 09/11/18 09/12/18 09/12/18 23:44 05:29 05:36 WBC RBC Hgb Hct MCV RDW Plt Count Lymph % (Auto) Lymph # Seg Neutrophils % Seg Neuts % (Manual) Lymphocytes % (Manual) Seg Neutrophils # Seg Neutrophils # Man Lymphocytes # (Manual) PT INR D-Dimer POC ABG pH 7.534 H POC ABG pCO2 50.4 H POC ABG pO2 Sodium Potassium Chloride Carbon Dioxide BUN Creatinine Glucose POC Glucose 119 H Lactic Acid Calcium Magnesium 2.40 H Total Bilirubin Direct Bilirubin AST Ammonia C-Reactive Protein Total Protein Albumin Triglycerides HDL Cholesterol Lipase TSH Free T4 Urine WBC (Auto) Salicylates Acetaminophen 09/12/18 09/12/18 08:05 08:05 WBC 11.7 H RBC Hgb Hct MCV RDW Plt Count 124 L Lymph % (Auto) Lymph # Seg Neutrophils % Seg Neuts % (Manual) 89.0 H Lymphocytes % (Manual) 9.0 L Seg Neutrophils # Seg Neutrophils # Man 10.4 H Lymphocytes # (Manual) 1.1 L PT INR D-Dimer POC ABG pH POC ABG pCO2 POC ABG pO2 Sodium Potassium Chloride 97.1 L Carbon Dioxide 38 H BUN 34 H Creatinine 0.7 L Glucose 127 H POC Glucose Lactic Acid Calcium 10.3 H Magnesium Total Bilirubin Direct Bilirubin AST Ammonia C-Reactive Protein Total Protein Albumin Triglycerides HDL Cholesterol Lipase TSH Free T4 Urine WBC (Auto) Salicylates Acetaminophen Chest x-ray: image reviewed (unfolding of the aorta, chronic lung changes, no acute infiltrates) Allied health notes reviewed: RT
--- NOTE | 2018-09-12 11:11 | Progress Note ---
Assessment and Plan Assessment and plan: 68 YO Male with Obesity Hypoventilation, COPD presents to ED for evaluation. Pt is confused, lethargic and unable to provide history. Pt history provided by his brother who is at bedside during exam and interview. As per brother, the patient has not returned phone calls over the past 4 days. As a result, the brother went to the home but the patient did not answer the door. Law Enforcement notified, and entry into the home was obtained. The patient was found down and covered in his own feces. Pt exhibited slurred speech, confusion. EMS notified and upon arrival, the patient was found to have a neurologic deficit. A code stroke was called, and the patient was transported to [facility]. Pt seen and evaluated in ED and found to have evidence of CVA as well as SIRS, Acidosis, and Encephalopathy. Pt admitted to telemetry and initiated on CVA protocol. He was intubated with concern for aspiration. Neurology consulted. Acute Metabolic encephalopathy - treat the underlying condition; will check ammonia level - CT, MRI head negative for CVA Delirium - Supportive care - patient is on restraints Acute Hypoxic Respiratory failure, COPD exacerbation - Patient extubated on 09/11 - Currently on intermittent oxygen - Hinges on IV Solu-Medrol Hypernatremia - Resolved Rectal Bleed - Evaluated by GI and they decreased his due to hemorrhoid - H&H stable Aspiration Pneumonia - Patient is treated with IV antibiotics, will finish antibiotic today - CTA showed right lower lobe pneumonia, no PE Obesity Hypoventilation syndrome - Oxygen support ETOH use disorder - hYPOTHYRODISIM - On Synthroid Moderate Protien calorie Malnutrition - We'll consult nutrition when stable Secondary Coagulopathy ?UNDERLYING LIVER DISEASE VS IATROGENIC MEDICATION - Supportive care Sepsis - Resolved Tobacco use disorder per hx; counsell when stable Patient is on folic cath is placed by urology. Diabetes mellitus - on basal and sliding scale insulin History Interval history: Patient was seen and evaluated this morning, patient was extubated yesterday. patient was confused, on restraints. Hospitalist Physical - Physical exam Narrative exam: Patient was on [place] oxygen. The patient is obese. Vital signs as documented. Head exam is unremarkable. No scleral icterus . Neck is without jugular venous distension, thyromegaly, or carotid bruits. Lungs are clear to auscultation. Cardiac exam reveals regular rate and Rhythm. Abdominal exam reveals normal bowel sounds. Extremities are nonedematous and both femoral and pedal pulses are normal. on mares catheter. COTTON CONVERTER:Patient was confused. - Constitutional Vitals: Temp Pulse Resp BP Pulse Ox 99.1 F 95 H 18 120/70 96 09/12/18 04:00 09/12/18 09:45 09/12/18 09:45 09/12/18 09:45 09/12/18 09:45 General appearance: Present: mild distress, obese, disheveled Results - Labs CBC & Chem 7: 09/12/18 08:05 09/12/18 08:05 Labs: Laboratory Last Values WBC 11.7 K/mm3 (4.5-11.0) H 09/12/18 08:05 RBC 4.91 M/mm3 (3.65-5.03) 09/12/18 08:05 Hgb 14.6 gm/dl (11.8-15.2) 09/12/18 08:05 Hct 44.9 % (35.5-45.6) 09/12/18 08:05 MCV 91 fl (84-94) 09/12/18 08:05 MCH 30 pg (28-32) 09/12/18 08:05 MCHC 32 % (32-34) 09/12/18 08:05 RDW 14.5 % (13.2-15.2) 09/12/18 08:05 Plt Count 124 K/mm3 (140-440) L 09/12/18 08:05 Lymph % (Auto) 11.8 % (13.4-35.0) L 09/04/18 05:20 [place] % (Auto) 6.8 % (0.0-7.3) 09/04/18 05:20 Eos % (Auto) 1.0 % (0.0-4.3) 09/04/18 05:20 Baso % (Auto) 0.3 % (0.0-1.8) 09/04/18 05:20 Lymph # 0.8 K/mm3 (1.2-5.4) L 09/04/18 05:20 [place] # 0.5 K/mm3 (0.0-0.8) 09/04/18 05:20 Eos # 0.1 K/mm3 (0.0-0.4) 09/04/18 05:20 Baso # 0.0 K/mm3 (0.0-0.1) 09/04/18 05:20 Add Manual Diff Complete 09/12/18 08:05 Total Counted 100 09/12/18 08:05 Seg Neutrophils % Tail Sawyer 09/10/18 05:07 Seg Neuts % (Manual) 89.0 % (40.0-70.0) H 09/12/18 08:05 Band Neutrophils % 0 % 09/12/18 08:05 Lymphocytes % (Manual) 9.0 % (13.4-35.0) L 09/12/18 08:05 Reactive Lymphs % (Man) 0 % 09/12/18 08:05 Monocytes % (Manual) 2.0 % (0.0-7.3) 09/12/18 08:05 Eosinophils % (Manual) 0 % (0.0-4.3) 09/12/18 08:05 Basophils % (Manual) 0 % (0.0-1.8) 09/12/18 08:05 Metamyelocytes % 0 % 09/12/18 08:05 Myelocytes % 0 % 09/12/18 08:05 Promyelocytes % 0 % 09/12/18 08:05 Blast Cells % 0 % 09/12/18 08:05 Nucleated RBC % Not Reportable 09/12/18 08:05 Seg Neutrophils # 5.5 K/mm3 (1.8-7.7) 09/04/18 05:20 Seg Neutrophils # Man 10.4 K/mm3 (1.8-7.7) H 09/12/18 08:05 Band Neutrophils # 0.0 K/mm3 09/12/18 08:05 Lymphocytes # (Manual) 1.1 K/mm3 (1.2-5.4) L 09/12/18 08:05 Abs React Lymphs (Man) 0.0 K/mm3 09/12/18 08:05 Monocytes # (Manual) 0.2 K/mm3 (0.0-0.8) 09/12/18 08:05 Eosinophils # (Manual) 0.0 K/mm3 (0.0-0.4) 09/12/18 08:05 Basophils # (Manual) 0.0 K/mm3 (0.0-0.1) 09/12/18 08:05 Metamyelocytes # 0.0 K/mm3 09/12/18 08:05 Myelocytes # 0.0 K/mm3 09/12/18 08:05 Promyelocytes # 0.0 K/mm3 09/12/18 08:05 Blast Cells # 0.0 K/mm3 09/12/18 08:05 WBC Morphology Not Reportable 09/12/18 08:05 Hypersegmented Neuts Not Reportable 09/12/18 08:05 Hyposegmented Neuts Not Reportable 09/12/18 08:05 Hypogranular Neuts Not Reportable 09/12/18 08:05 Smudge Cells Not Reportable 09/12/18 08:05 Toxic Granulation Not Reportable 09/12/18 08:05 Toxic Vacuolation Not Reportable 09/12/18 08:05 Dohle Bodies Not Reportable 09/12/18 08:05 Pelger-Huet Anomaly Not Reportable 09/12/18 08:05 Tony Rods Not Reportable 09/12/18 08:05 Platelet Estimate Consistent w auto 09/12/18 08:05 Clumped Platelets Not Reportable 09/12/18 08:05 Plt Clumps, EDTA Not Reportable 09/12/18 08:05 Large Platelets Not Reportable 09/12/18 08:05 Giant Platelets Not Reportable 09/12/18 08:05 Platelet Satelliting Not Reportable 09/12/18 08:05 Plt Morphology Comment Not Reportable 09/12/18 08:05 RBC Morphology Not Reportable 09/12/18 08:05 Dimorphic RBCs Not Reportable 09/12/18 08:05 Polychromasia 1+ 09/12/18 08:05 Hypochromasia Not Reportable 09/12/18 08:05 Poikilocytosis Not Reportable 09/12/18 08:05 Anisocytosis 1+ 09/12/18 08:05 Microcytosis Not Reportable 09/12/18 08:05 Macrocytosis Not Reportable 09/12/18 08:05 Spherocytes Not Reportable 09/12/18 08:05 Pappenheimer Bodies Not Reportable 09/12/18 08:05 Sickle Cells Not Reportable 09/12/18 08:05 Target Cells Not Reportable 09/12/18 08:05 Tear Drop Cells Not Reportable 09/12/18 08:05 Ovalocytes Not Reportable 09/12/18 08:05 Helmet Cells Not Reportable 09/12/18 08:05 Vizcaino-[place] Bodies Not Reportable 09/12/18 08:05 [place] Rings Not Reportable 09/12/18 08:05 Aleksandr Cells Not Reportable 09/12/18 08:05 Bite Cells Not Reportable 09/12/18 08:05 Crenated Cell Not Reportable 09/12/18 08:05 Elliptocytes Not Reportable 09/12/18 08:05 Acanthocytes (Spur) Not Reportable 09/12/18 08:05 Rouleaux Not Reportable 09/12/18 08:05 Hemoglobin C Crystals Not Reportable 09/12/18 08:05 Schistocytes Not Reportable 09/12/18 08:05 Malaria parasites Not Reportable 09/12/18 08:05 Tejinder Bodies Not Reportable 09/12/18 08:05 Hem Pathologist Commnt No 09/12/18 08:05 PT 21.8 Sec. (12.2-14.9) H 09/03/18 11:26 INR 1.86 (0.87-1.13) H 09/03/18 11:26 APTT 32.5 Sec. (24.2-36.6) 09/02/18 12:35 D-Dimer 4180.35 ng/mlDDU (0-234) H 09/02/18 12:35 POC ABG pH 7.534 (7.35-7.45) H 09/12/18 05:29 POC ABG pCO2 50.4 (35-45) H 09/12/18 05:29 POC ABG pO2 86 (80-105) 09/12/18 05:29 POC ABG HCO3 42.5 09/12/18 05:29 POC ABG Total CO2 44 09/12/18 05:29 POC ABG O2 Sat 97 09/12/18 05:29 POC ABG Base Excess 20 09/12/18 05:29 FiO2 40 % 09/12/18 05:29 Sodium 144 mmol/L (137-145) 09/12/18 08:05 Potassium 3.7 mmol/L (3.6-5.0) 09/12/18 08:05 Chloride 97.1 mmol/L (98-107) L 09/12/18 08:05 Carbon Dioxide 38 mmol/L (22-30) H 09/12/18 08:05 Anion Gap 13 mmol/L 09/12/18 08:05 BUN 34 mg/dL (9-20) H 09/12/18 08:05 Creatinine 0.7 mg/dL (0.8-1.5) L 09/12/18 08:05 Estimated GFR > 60 ml/min 09/12/18 08:05 BUN/Creatinine Ratio 49 % 09/12/18 08:05 Glucose 127 mg/dL (75-100) H 09/12/18 08:05 POC Glucose 119 (70-105) H 09/12/18 05:36 Lactic Acid 1.40 mmol/L (0.7-2.0) 09/06/18 21:58 Calcium 10.3 mg/dL (8.4-10.2) H 09/12/18 08:05 Magnesium 2.40 mg/dL (1.7-2.3) H 09/11/18 23:44 Total Bilirubin 0.70 mg/dL (0.1-1.2) 09/08/18 04:22 Direct Bilirubin < 0.2 mg/dL (0-0.2) 09/03/18 11:26 Indirect Bilirubin 0.3 mg/dL 09/02/18 13:36 AST 44 units/L (5-40) H 09/08/18 04:22 ALT 33 units/L (7-56) 09/08/18 04:22 Alkaline Phosphatase 80 units/L (35-129) 09/08/18 04:22 Ammonia 58.0 umol/L (25-60) 09/06/18 05:10 Total Creatine Kinase 98 units/L (55-170) 09/02/18 13:36 Troponin T 0.018 ng/mL (0.00-0.029) 09/02/18 13:36 C-Reactive Protein 9.00 mg/dL (0.00-1.30) H 09/06/18 21:58 NT-Pro-B Natriuret Pep 873.7 pg/mL (0-900) 09/02/18 13:36 Total Protein 5.6 g/dL (6.3-8.2) L 09/08/18 04:22 Albumin 2.4 g/dL (3.9-5) L 09/08/18 04:22 Albumin/Globulin Ratio 0.8 % 09/08/18 04:22 Triglycerides 150 mg/dL (2-149) H 09/03/18 Unknown Cholesterol 116 mg/dL (50-199) 09/03/18 Unknown LDL Cholesterol Direct 69 mg/dL (50-130) 09/03/18 Unknown HDL Cholesterol 21 mg/dL (40-59) L 09/03/18 Unknown Cholesterol/HDL Ratio 5.52 % 09/03/18 Unknown Lipase 81 units/L (13-60) H 09/02/18 13:36 TSH < 0.005 mlU/mL (0.270-4.200) L 09/02/18 16:45 Free T4 2.40 ng/dL (0.76-1.46) H 09/02/18 16:45 Urine Color [place] (Yellow) 09/08/18 00:14 Urine Turbidity Cloudy (Clear) 09/08/18 00:14 Urine pH 5.0 (5.0-7.0) 09/08/18 00:14 Ur Specific [place] 1.019 (1.003-1.030) 09/08/18 00:14 Urine Protein 30 mg/dl mg/dL (Negative) 09/08/18 00:14 Urine Glucose (UA) Neg mg/dL (Negative) 09/08/18 00:14 Urine Ketones Neg mg/dL (Negative) 09/08/18 00:14 Urine Blood Lg (Negative) 09/08/18 00:14 Urine Nitrite Neg (Negative) 09/08/18 00:14 Urine Bilirubin Neg (Negative) 09/08/18 00:14 Urine Urobilinogen 4.0 mg/dL (<2.0) 09/08/18 00:14 Ur Leukocyte Esterase Neg (Negative) 09/08/18 00:14 Urine WBC (Auto) 41.0 /HPF (0.0-6.0) H 09/08/18 00:14 Urine RBC (Auto) > 182.0 /HPF (0.0-6.0) 09/08/18 00:14 U Epithel Cells (Auto) 8.0 /HPF (0-13.0) 09/08/18 00:14 Urine Bacteria (Auto) 2+ /HPF (Negative) 09/08/18 00:14 Ur Transition Epith Cell 1 /HPF 09/08/18 00:14 Amorphous Crystals 3+ 09/08/18 00:14 Hyaline Casts 99 /LPF 09/08/18 00:14 Urine Mucus 2+ /HPF 09/08/18 00:14 Salicylates < 0.3 mg/dL (2.8-20.0) L 09/02/18 12:35 Urine Opiates Screen Presumptive negative 09/02/18 13:59 Urine Methadone Screen Presumptive negative 09/02/18 13:59 Acetaminophen < 5.0 ug/mL (10.0-30.0) L 09/02/18 12:35 Ur Barbiturates Screen Presumptive negative 09/02/18 13:59 Ur Phencyclidine Scrn Presumptive negative 09/02/18 13:59 Ur Amphetamines Screen Presumptive negative 09/02/18 13:59 U Benzodiazepines Scrn Presumptive negative 09/02/18 13:59 Urine Cocaine Screen Presumptive negative 09/02/18 13:59 U Marijuana (THC) Screen Presumptive negative 09/02/18 13:59 Drugs of Abuse Note Disclamer 09/02/18 13:59 Plasma/Serum Alcohol < 0.01 % (0-0.07) 09/02/18 12:35 Nutrition/Malnutrition Assess - Dietary Evaluation Nutrition/Malnutrition Findings: Nutrition Notes Start: 09/06/18 15:28 Freq: Status: Active Protocol: Document 09/10/18 12:48 PROSPER (Rec: 09/10/18 12:49 PROSPER [id number]) Nutrition Notes Subjective/Other Information F/U date changed. Nutrition Intervention Follow-Up By: 09/17/18 Additional Comments F/U: stable TF, wt
[2018-09-12] MEDS: SOLU-Medrol IV SCH (11:32)
[2018-09-12] MEDS: ROCEPHIN/NS 1 GM/50 ML 1 GM/50 ML BAG IV SCH (12:48)
[2018-09-12] MEDS: LOVENOX SUB-Q SCH (13:17)
[2018-09-12] MEDS: GENTAMICIN 0.3% OPHTH SOLN OU SCH (14:09)
[2018-09-12] MEDS: D5W 1,000 ML IV SCH (14:09)
[2018-09-12] MEDS: FLOMAX PO SCH (14:12)
--- NOTE | 2018-09-12 14:27 | XRay Report ---
ABDOMEN RADIOGRAPH INDICATION: NG tube placement. COMPARISON: 09/06/2018 FINDINGS: Frontal abdominal radiograph now demonstrates a Dobbhoff tube tip along the distal stomach in the pylorus or proximal duodenum. Nonobstructive bowel gas pattern. Mild right basilar atelectasis or scarring. Mild aortic knob calcifications. Slight lower lumbar degenerative spurring. CONCLUSION: Satisfactory Dobbhoff tube placement, as described. Thank you for the opportunity to participate in this patient's care.
[2018-09-12] MEDS: PREVACID SOLUTAB FEEDTUBE SCH (15:00)
[2018-09-12] MEDS: WELLBUTRIN PO SCH (15:00)
[2018-09-12] MEDS: COLACE FEEDTUBE SCH (15:00)
[2018-09-12] MEDS: HCTZ PO SCH (15:30)
[2018-09-13] MEDS: COLACE FEEDTUBE SCH ×3 (00:07→21:06)
[2018-09-13] MEDS: PROCTOSOL-HC PR SCH ×4 (00:08→21:06)
[2018-09-13] MEDS: WELLBUTRIN PO SCH ×3 (00:08→21:05)
[2018-09-13] MEDS: SOLU-Medrol IV SCH ×3 (00:09→21:05)
[2018-09-13] MEDS: CEPHULAC PO SCH ×2 (00:12→21:05)
[2018-09-13] MEDS: GENTAMICIN 0.3% OPHTH SOLN OU SCH ×8 (00:13→21:06)
[2018-09-13] MEDS: HumaLOG SUB-Q SCH ×4 (01:43→17:25)
[2018-09-13] MEDS: LANTUS SUB-Q SCH ×2 (01:46→21:09)
[2018-09-13] MEDS: DUONEB *Not for PRN Use IH SCH ×4 (02:07→19:32)
[2018-09-13] MEDS: D5W 1,000 ML IV SCH (05:01)
[2018-09-13 05:50] LABS: Hematocrit 47.2 % (35.5-45.6); Hemoglobin 15.2 gm/dl (11.8-15.2); Mean Corpuscular HGB Conc 32 % (32-34); Mean Corpuscular Volume 92 fl (84-94); Platelet Count 129 K/mm3 (140-440); Red Blood Count 5.15 M/mm3 (3.65-5.03); Red Cell Distribution Width 15.1 % (13.2-15.2)
[2018-09-13 06:00] LABS: BUN/Creatinine Ratio 48; Blood Urea Nitrogen 38 mg/dL (9-20); Calcium 10.1 mg/dL (8.4-10.2); Hemolysis Index 14
[2018-09-13 07:55] LABS: Anisocytosis 1+; Band Neutrophils # (Manual) 0.5 K/mm3; Basophils % (Manual) 0 % (0.0-1.8); Eosinophils % (Manual) 0 % (0.0-4.3); Total Cells Counted 100
[2018-09-13 07:56] LABS: Platelet Estimate Consistent w Auto; Stomatocytes Few
[2018-09-13] MEDS: PULMICORT IH SCH ×2 (09:36→19:32)
[2018-09-13] MEDS: BROVANA NEBU IH SCH ×2 (09:37→19:32)
[2018-09-13] MEDS: FLOMAX PO SCH (10:07)
[2018-09-13] MEDS: LOVENOX SUB-Q SCH (10:08)
[2018-09-13] MEDS: HCTZ PO SCH (10:08)
[2018-09-13] MEDS: PREVACID SOLUTAB FEEDTUBE SCH (10:09)
--- NOTE | 2018-09-13 10:24 | Progress Note ---
Subjective Date of service: 09/13/18 Principal diagnosis: Ac Hypoxemic Resp failure; AE-COPD; Pneumonia (Aspiration); Ac encephalopat Interval history: patient re-evaluated and spoke to the brother who provided better hx that infection preceeded thias illness... bbrother did not describe hx of heavy alcohol use but there was moderate alcohol use Impression clearly better at this point- suspect encephalopathy liver/ renal Objective - Vital Sign Vital Signs - 12hr 09/12/18 09/12/18 09/13/18 22:45 23:00 00:00 Temperature 98.7 F Pulse Rate 96 H 95 H 94 H Pulse Rate [ Anterior Bilateral Throughout] Pulse Rate [ 114 H From Monitor] Respiratory 22 15 22 Rate Respiratory Rate [Anterior Bilateral Throughout] Blood Pressure 122/83 107/77 106/75 O2 Sat by Pulse 96 95 95 Oximetry 09/13/18 09/13/18 09/13/18 01:00 02:00 02:08 Temperature Pulse Rate 96 H Pulse Rate [ 107 H Anterior Bilateral Throughout] Pulse Rate [ From Monitor] Respiratory 23 15 Rate Respiratory 17 Rate [Anterior Bilateral Throughout] Blood Pressure 111/75 115/73 O2 Sat by Pulse 94 94 Oximetry 09/13/18 09/13/18 09/13/18 02:23 03:00 04:00 Temperature 98.6 F Pulse Rate 91 H 86 Pulse Rate [ 109 H Anterior Bilateral Throughout] Pulse Rate [ 89 From Monitor] Respiratory 20 31 H Rate Respiratory 17 Rate [Anterior Bilateral Throughout] Blood Pressure 107/69 112/81 O2 Sat by Pulse 96 95 Oximetry 09/13/18 09/13/18 09/13/18 05:01 05:08 06:00 Temperature Pulse Rate 88 88 90 Pulse Rate [ Anterior Bilateral Throughout] Pulse Rate [ From Monitor] Respiratory 24 18 32 H Rate Respiratory Rate [Anterior Bilateral Throughout] Blood Pressure 121/79 121/79 113/78 O2 Sat by Pulse 94 94 92 Oximetry 09/13/18 09/13/18 09/13/18 07:00 08:00 09:01 Temperature 98.2 F Pulse Rate 90 90 85 Pulse Rate [ Anterior Bilateral Throughout] Pulse Rate [ 89 From Monitor] Respiratory 33 H 41 H 25 H Rate Respiratory Rate [Anterior Bilateral Throughout] Blood Pressure 126/86 131/93 122/74 O2 Sat by Pulse 93 92 95 Oximetry 09/13/18 09:37 Temperature Pulse Rate Pulse Rate [ 85 Anterior Bilateral Throughout] Pulse Rate [ From Monitor] Respiratory Rate Respiratory 23 Rate [Anterior Bilateral Throughout] Blood Pressure O2 Sat by Pulse Oximetry - Laboratory Findings CBC and BMP: 09/13/18 04:41 09/13/18 04:41 Abnormal Lab Findings: Abnormal Labs 09/02/18 09/02/18 09/02/18 12:35 12:35 12:35 WBC RBC 6.15 H Hgb 18.7 H Hct 57.7 H MCV RDW 15.5 H Plt Count Lymph % (Auto) 8.8 L Lymph # 0.9 L Seg Neutrophils % 83.2 H Seg Neuts % (Manual) Lymphocytes % (Manual) Seg Neutrophils # 8.9 H Seg Neutrophils # Man Lymphocytes # (Manual) PT 20.8 H INR 1.74 H D-Dimer 4180.35 H POC ABG pH POC ABG pCO2 POC ABG pO2 Sodium Potassium Chloride Carbon Dioxide BUN Creatinine Glucose POC Glucose Lactic Acid Calcium Magnesium Total Bilirubin Direct Bilirubin AST Ammonia C-Reactive Protein Total Protein Albumin Triglycerides HDL Cholesterol Lipase TSH Free T4 Urine WBC (Auto) Salicylates < 0.3 L Acetaminophen 09/02/18 09/02/18 09/02/18 12:35 12:35 12:35 WBC RBC Hgb Hct MCV RDW Plt Count Lymph % (Auto) Lymph # Seg Neutrophils % Seg Neuts % (Manual) Lymphocytes % (Manual) Seg Neutrophils # Seg Neutrophils # Man Lymphocytes # (Manual) PT INR D-Dimer POC ABG pH POC ABG pCO2 POC ABG pO2 Sodium Potassium Chloride Carbon Dioxide BUN Creatinine Glucose POC Glucose 167 H Lactic Acid 3.20 H* Calcium Magnesium Total Bilirubin Direct Bilirubin AST Ammonia C-Reactive Protein Total Protein Albumin Triglycerides HDL Cholesterol Lipase TSH Free T4 Urine WBC (Auto) Salicylates Acetaminophen < 5.0 L 09/02/18 09/02/18 09/02/18 13:36 14:40 16:45 WBC RBC Hgb Hct MCV RDW Plt Count Lymph % (Auto) Lymph # Seg Neutrophils % Seg Neuts % (Manual) Lymphocytes % (Manual) Seg Neutrophils # Seg Neutrophils # Man Lymphocytes # (Manual) PT INR D-Dimer POC ABG pH POC ABG pCO2 POC ABG pO2 Sodium 159 H Potassium Chloride 114.7 H Carbon Dioxide BUN 90 H Creatinine Glucose 172 H POC Glucose Lactic Acid 2.30 H* Calcium 10.8 H Magnesium Total Bilirubin Direct Bilirubin 0.3 H AST Ammonia C-Reactive Protein Total Protein Albumin 2.6 L Triglycerides HDL Cholesterol Lipase 81 H TSH < 0.005 L Free T4 2.40 H Urine WBC (Auto) Salicylates Acetaminophen 09/03/18 09/03/18 09/03/18 11:26 11:26 11:26 WBC RBC Hgb Hct MCV RDW Plt Count Lymph % (Auto) Lymph # Seg Neutrophils % Seg Neuts % (Manual) Lymphocytes % (Manual) Seg Neutrophils # Seg Neutrophils # Man Lymphocytes # (Manual) PT 21.8 H INR 1.86 H D-Dimer POC ABG pH POC ABG pCO2 POC ABG pO2 Sodium 160 H Potassium Chloride 122.6 H Carbon Dioxide BUN 69 H Creatinine Glucose 127 H POC Glucose Lactic Acid Calcium Magnesium Total Bilirubin Direct Bilirubin AST Ammonia C-Reactive Protein Total Protein Albumin 2.1 L Triglycerides HDL Cholesterol Lipase TSH Free T4 Urine WBC (Auto) Salicylates Acetaminophen 09/03/18 09/03/18 09/03/18 11:26 15:39 20:23 WBC RBC Hgb Hct MCV RDW Plt Count Lymph % (Auto) Lymph # Seg Neutrophils % Seg Neuts % (Manual) Lymphocytes % (Manual) Seg Neutrophils # Seg Neutrophils # Man Lymphocytes # (Manual) PT INR D-Dimer POC ABG pH POC ABG pCO2 POC ABG pO2 Sodium 160 H 160 H Potassium Chloride Carbon Dioxide BUN Creatinine Glucose POC Glucose Lactic Acid Calcium Magnesium Total Bilirubin Direct Bilirubin AST Ammonia 75.0 H C-Reactive Protein Total Protein Albumin Triglycerides HDL Cholesterol Lipase TSH Free T4 Urine WBC (Auto) Salicylates Acetaminophen 09/03/18 09/04/18 09/04/18 Unknown 02:38 05:20 WBC RBC Hgb Hct MCV RDW Plt Count Lymph % (Auto) Lymph # Seg Neutrophils % Seg Neuts % (Manual) Lymphocytes % (Manual) Seg Neutrophils # Seg Neutrophils # Man Lymphocytes # (Manual) PT INR D-Dimer POC ABG pH POC ABG pCO2 POC ABG pO2 Sodium 160 H 166 H* Potassium Chloride 129.2 H Carbon Dioxide BUN 57 H Creatinine Glucose 137 H POC Glucose Lactic Acid Calcium Magnesium Total Bilirubin Direct Bilirubin AST Ammonia C-Reactive Protein Total Protein 5.8 L Albumin 2.7 L Triglycerides 150 H HDL Cholesterol 21 L Lipase TSH Free T4 Urine WBC (Auto) Salicylates Acetaminophen 09/04/18 09/04/18 09/04/18 05:20 09:11 13:35 WBC RBC 5.12 H Hgb 15.5 H D 15.6 H Hct 48.0 H D 48.1 H MCV RDW 15.9 H Plt Count Lymph % (Auto) 11.8 L Lymph # 0.8 L Seg Neutrophils % 80.1 H Seg Neuts % (Manual) Lymphocytes % (Manual) Seg Neutrophils # Seg Neutrophils # Man Lymphocytes # (Manual) PT INR D-Dimer POC ABG pH POC ABG pCO2 POC ABG pO2 Sodium 166 H* Potassium Chloride Carbon Dioxide BUN Creatinine Glucose POC Glucose Lactic Acid Calcium Magnesium Total Bilirubin Direct Bilirubin AST Ammonia C-Reactive Protein Total Protein Albumin Triglycerides HDL Cholesterol Lipase TSH Free T4 Urine WBC (Auto) Salicylates Acetaminophen 09/04/18 09/04/18 09/04/18 13:35 21:04 21:04 WBC RBC Hgb 16.9 H Hct 58.3 H D MCV RDW Plt Count Lymph % (Auto) Lymph # Seg Neutrophils % Seg Neuts % (Manual) Lymphocytes % (Manual) Seg Neutrophils # Seg Neutrophils # Man Lymphocytes # (Manual) PT INR D-Dimer POC ABG pH POC ABG pCO2 POC ABG pO2 Sodium 164 H* 159 H Potassium Chloride Carbon Dioxide BUN Creatinine Glucose POC Glucose Lactic Acid Calcium Magnesium Total Bilirubin Direct Bilirubin AST Ammonia C-Reactive Protein Total Protein Albumin Triglycerides HDL Cholesterol Lipase TSH Free T4 Urine WBC (Auto) Salicylates Acetaminophen 09/05/18 09/05/18 09/05/18 01:11 02:51 03:17 WBC RBC Hgb Hct MCV RDW Plt Count Lymph % (Auto) Lymph # Seg Neutrophils % Seg Neuts % (Manual) Lymphocytes % (Manual) Seg Neutrophils # Seg Neutrophils # Man Lymphocytes # (Manual) PT INR D-Dimer POC ABG pH 7.340 L POC ABG pCO2 57.8 H POC ABG pO2 74 L Sodium 152 H Potassium Chloride Carbon Dioxide BUN Creatinine Glucose POC Glucose 116 H Lactic Acid Calcium Magnesium Total Bilirubin Direct Bilirubin AST Ammonia C-Reactive Protein Total Protein Albumin Triglycerides HDL Cholesterol Lipase TSH Free T4 Urine WBC (Auto) Salicylates Acetaminophen 09/05/18 09/05/18 09/05/18 07:45 10:34 15:21 WBC RBC Hgb Hct MCV RDW Plt Count Lymph % (Auto) Lymph # Seg Neutrophils % Seg Neuts % (Manual) Lymphocytes % (Manual) Seg Neutrophils # Seg Neutrophils # Man Lymphocytes # (Manual) PT INR D-Dimer POC ABG pH POC ABG pCO2 POC ABG pO2 Sodium 156 H 153 H Potassium Chloride Carbon Dioxide BUN Creatinine Glucose POC Glucose Lactic Acid Calcium Magnesium Total Bilirubin Direct Bilirubin AST Ammonia 61.0 H C-Reactive Protein Total Protein Albumin Triglycerides HDL Cholesterol Lipase TSH Free T4 Urine WBC (Auto) Salicylates Acetaminophen 09/06/18 09/06/18 09/06/18 05:10 05:10 08:43 WBC RBC 5.06 H Hgb Hct 47.8 H D MCV RDW 15.3 H Plt Count Lymph % (Auto) Lymph # Seg Neutrophils % Seg Neuts % (Manual) Lymphocytes % (Manual) Seg Neutrophils # Seg Neutrophils # Man Lymphocytes # (Manual) PT INR D-Dimer POC ABG pH POC ABG pCO2 POC ABG pO2 Sodium 155 H 150 H Potassium Chloride 117.0 H Carbon Dioxide BUN 36 H Creatinine Glucose 143 H POC Glucose Lactic Acid Calcium Magnesium Total Bilirubin Direct Bilirubin AST Ammonia C-Reactive Protein Total Protein Albumin Triglycerides HDL Cholesterol Lipase TSH Free T4 Urine WBC (Auto) Salicylates Acetaminophen 09/06/18 09/06/18 09/06/18 13:21 15:11 16:23 WBC RBC Hgb Hct MCV RDW Plt Count Lymph % (Auto) Lymph # Seg Neutrophils % Seg Neuts % (Manual) Lymphocytes % (Manual) Seg Neutrophils # Seg Neutrophils # Man Lymphocytes # (Manual) PT INR D-Dimer POC ABG pH POC ABG pCO2 49.1 H POC ABG pO2 107 H Sodium 151 H Potassium Chloride Carbon Dioxide BUN Creatinine Glucose POC Glucose 120 H Lactic Acid Calcium Magnesium Total Bilirubin Direct Bilirubin AST Ammonia C-Reactive Protein Total Protein Albumin Triglycerides HDL Cholesterol Lipase TSH Free T4 Urine WBC (Auto) Salicylates Acetaminophen 09/06/18 09/07/18 09/07/18 21:58 00:25 02:49 WBC RBC 5.32 H Hgb 16.1 H Hct 50.2 H MCV 95 H RDW 15.6 H Plt Count Lymph % (Auto) Lymph # Seg Neutrophils % Seg Neuts % (Manual) Lymphocytes % (Manual) Seg Neutrophils # Seg Neutrophils # Man Lymphocytes # (Manual) PT INR D-Dimer POC ABG pH POC ABG pCO2 POC ABG pO2 Sodium 150 H Potassium Chloride Carbon Dioxide BUN Creatinine Glucose POC Glucose Lactic Acid Calcium Magnesium Total Bilirubin Direct Bilirubin AST Ammonia C-Reactive Protein 9.00 H Total Protein Albumin Triglycerides HDL Cholesterol Lipase TSH Free T4 Urine WBC (Auto) Salicylates Acetaminophen 09/07/18 09/07/18 09/07/18 02:49 03:43 09:17 WBC RBC Hgb Hct MCV RDW Plt Count Lymph % (Auto) Lymph # Seg Neutrophils % Seg Neuts % (Manual) Lymphocytes % (Manual) Seg Neutrophils # Seg Neutrophils # Man Lymphocytes # (Manual) PT INR D-Dimer POC ABG pH POC ABG pCO2 46.5 H POC ABG pO2 Sodium 149 H 155 H Potassium 5.2 H D Chloride 116.1 H Carbon Dioxide 21 L BUN 47 H Creatinine Glucose 122 H POC Glucose Lactic Acid Calcium Magnesium Total Bilirubin 1.80 H Direct Bilirubin AST 83 H Ammonia C-Reactive Protein Total Protein Albumin 1.8 L Triglycerides HDL Cholesterol Lipase TSH Free T4 Urine WBC (Auto) Salicylates Acetaminophen 09/07/18 09/08/18 09/08/18 16:02 00:14 00:51 WBC RBC Hgb Hct MCV RDW Plt Count Lymph % (Auto) Lymph # Seg Neutrophils % Seg Neuts % (Manual) Lymphocytes % (Manual) Seg Neutrophils # Seg Neutrophils # Man Lymphocytes # (Manual) PT INR D-Dimer POC ABG pH POC ABG pCO2 POC ABG pO2 Sodium 156 H 154 H Potassium Chloride Carbon Dioxide BUN Creatinine Glucose POC Glucose Lactic Acid Calcium Magnesium Total Bilirubin Direct Bilirubin AST Ammonia C-Reactive Protein Total Protein Albumin Triglycerides HDL Cholesterol Lipase TSH Free T4 Urine WBC (Auto) 41.0 H Salicylates Acetaminophen 09/08/18 09/08/18 09/08/18 04:22 04:22 04:46 WBC RBC Hgb Hct MCV 95 H RDW 15.3 H Plt Count Lymph % (Auto) Lymph # Seg Neutrophils % Seg Neuts % (Manual) Lymphocytes % (Manual) Seg Neutrophils # Seg Neutrophils # Man Lymphocytes # (Manual) PT INR D-Dimer POC ABG pH POC ABG pCO2 55.3 H POC ABG pO2 77 L Sodium 153 H Potassium 3.5 L D Chloride 114.8 H Carbon Dioxide BUN 69 H Creatinine Glucose 277 H POC Glucose Lactic Acid Calcium Magnesium Total Bilirubin Direct Bilirubin AST 44 H Ammonia C-Reactive Protein Total Protein 5.6 L Albumin 2.4 L Triglycerides HDL Cholesterol Lipase TSH Free T4 Urine WBC (Auto) Salicylates Acetaminophen 09/08/18 09/08/18 09/08/18 08:40 12:03 15:43 WBC RBC Hgb Hct MCV RDW Plt Count Lymph % (Auto) Lymph # Seg Neutrophils % Seg Neuts % (Manual) Lymphocytes % (Manual) Seg Neutrophils # Seg Neutrophils # Man Lymphocytes # (Manual) PT INR D-Dimer POC ABG pH POC ABG pCO2 POC ABG pO2 Sodium 154 H 152 H Potassium Chloride Carbon Dioxide BUN Creatinine Glucose POC Glucose 186 H Lactic Acid Calcium Magnesium Total Bilirubin Direct Bilirubin AST Ammonia C-Reactive Protein Total Protein Albumin Triglycerides HDL Cholesterol Lipase TSH Free T4 Urine WBC (Auto) Salicylates Acetaminophen 09/08/18 09/08/18 09/09/18 17:57 23:54 04:01 WBC RBC Hgb Hct MCV 95 H RDW 15.3 H Plt Count 130 L Lymph % (Auto) Lymph # Seg Neutrophils % Seg Neuts % (Manual) Lymphocytes % (Manual) Seg Neutrophils # Seg Neutrophils # Man Lymphocytes # (Manual) PT INR D-Dimer POC ABG pH POC ABG pCO2 POC ABG pO2 Sodium Potassium Chloride Carbon Dioxide BUN Creatinine Glucose POC Glucose 252 H 297 H Lactic Acid Calcium Magnesium Total Bilirubin Direct Bilirubin AST Ammonia C-Reactive Protein Total Protein Albumin Triglycerides HDL Cholesterol Lipase TSH Free T4 Urine WBC (Auto) Salicylates Acetaminophen 09/09/18 09/09/18 09/09/18 04:01 04:33 05:32 WBC RBC Hgb Hct MCV RDW Plt Count Lymph % (Auto) Lymph # Seg Neutrophils % Seg Neuts % (Manual) Lymphocytes % (Manual) Seg Neutrophils # Seg Neutrophils # Man Lymphocytes # (Manual) PT INR D-Dimer POC ABG pH 7.267 L POC ABG pCO2 76.6 H POC ABG pO2 69 L Sodium 150 H Potassium Chloride 110.9 H Carbon Dioxide 32 H BUN 62 H Creatinine Glucose 220 H POC Glucose 196 H Lactic Acid Calcium 10.3 H Magnesium Total Bilirubin Direct Bilirubin AST Ammonia C-Reactive Protein Total Protein Albumin Triglycerides HDL Cholesterol Lipase TSH Free T4 Urine WBC (Auto) Salicylates Acetaminophen 09/09/18 09/09/18 09/09/18 11:40 17:57 23:36 WBC RBC Hgb Hct MCV RDW Plt Count Lymph % (Auto) Lymph # Seg Neutrophils % Seg Neuts % (Manual) Lymphocytes % (Manual) Seg Neutrophils # Seg Neutrophils # Man Lymphocytes # (Manual) PT INR D-Dimer POC ABG pH POC ABG pCO2 POC ABG pO2 Sodium Potassium Chloride Carbon Dioxide BUN Creatinine Glucose POC Glucose 217 H 172 H 131 H Lactic Acid Calcium Magnesium Total Bilirubin Direct Bilirubin AST Ammonia C-Reactive Protein Total Protein Albumin Triglycerides HDL Cholesterol Lipase TSH Free T4 Urine WBC (Auto) Salicylates Acetaminophen 09/10/18 09/10/18 09/10/18 05:07 05:07 05:51 WBC RBC Hgb Hct MCV RDW Plt Count 115 L Lymph % (Auto) Lymph # Seg Neutrophils % Seg Neuts % (Manual) 95.0 H Lymphocytes % (Manual) 3.0 L Seg Neutrophils # Seg Neutrophils # Man Lymphocytes # (Manual) 0.2 L PT INR D-Dimer POC ABG pH POC ABG pCO2 POC ABG pO2 Sodium 146 H Potassium Chloride Carbon Dioxide 33 H BUN 46 H Creatinine 0.7 L Glucose 174 H POC Glucose 169 H Lactic Acid Calcium 10.3 H Magnesium Total Bilirubin Direct Bilirubin AST Ammonia C-Reactive Protein Total Protein Albumin Triglycerides HDL Cholesterol Lipase TSH Free T4 Urine WBC (Auto) Salicylates Acetaminophen 09/10/18 09/10/18 09/10/18 14:25 15:02 17:48 WBC RBC Hgb Hct MCV RDW Plt Count Lymph % (Auto) Lymph # Seg Neutrophils % Seg Neuts % (Manual) Lymphocytes % (Manual) Seg Neutrophils # Seg Neutrophils # Man Lymphocytes # (Manual) PT INR D-Dimer POC ABG pH POC ABG pCO2 62.6 H POC ABG pO2 Sodium Potassium Chloride Carbon Dioxide BUN Creatinine Glucose POC Glucose 240 H 185 H Lactic Acid Calcium Magnesium Total Bilirubin Direct Bilirubin AST Ammonia C-Reactive Protein Total Protein Albumin Triglycerides HDL Cholesterol Lipase TSH Free T4 Urine WBC (Auto) Salicylates Acetaminophen 09/10/18 09/11/18 09/11/18 23:28 04:25 04:38 WBC RBC Hgb Hct MCV RDW Plt Count Lymph % (Auto) Lymph # Seg Neutrophils % Seg Neuts % (Manual) Lymphocytes % (Manual) Seg Neutrophils # Seg Neutrophils # Man Lymphocytes # (Manual) PT INR D-Dimer POC ABG pH 7.487 H POC ABG pCO2 52.3 H POC ABG pO2 61 L Sodium 146 H Potassium Chloride Carbon Dioxide 37 H BUN 38 H Creatinine Glucose 254 H POC Glucose 132 H Lactic Acid Calcium 10.7 H Magnesium Total Bilirubin Direct Bilirubin AST Ammonia C-Reactive Protein Total Protein Albumin Triglycerides HDL Cholesterol Lipase TSH Free T4 Urine WBC (Auto) Salicylates Acetaminophen 09/11/18 09/11/18 09/11/18 05:09 11:58 17:54 WBC RBC Hgb Hct MCV RDW Plt Count Lymph % (Auto) Lymph # Seg Neutrophils % Seg Neuts % (Manual) Lymphocytes % (Manual) Seg Neutrophils # Seg Neutrophils # Man Lymphocytes # (Manual) PT INR D-Dimer POC ABG pH 7.538 H POC ABG pCO2 50.4 H POC ABG pO2 78 L Sodium Potassium Chloride Carbon Dioxide BUN Creatinine Glucose POC Glucose 190 H 126 H Lactic Acid Calcium Magnesium Total Bilirubin Direct Bilirubin AST Ammonia C-Reactive Protein Total Protein Albumin Triglycerides HDL Cholesterol Lipase TSH Free T4 Urine WBC (Auto) Salicylates Acetaminophen 09/11/18 09/12/18 09/12/18 23:44 05:29 05:36 WBC RBC Hgb Hct MCV RDW Plt Count Lymph % (Auto) Lymph # Seg Neutrophils % Seg Neuts % (Manual) Lymphocytes % (Manual) Seg Neutrophils # Seg Neutrophils # Man Lymphocytes # (Manual) PT INR D-Dimer POC ABG pH 7.534 H POC ABG pCO2 50.4 H POC ABG pO2 Sodium Potassium Chloride Carbon Dioxide BUN Creatinine Glucose POC Glucose 119 H Lactic Acid Calcium Magnesium 2.40 H Total Bilirubin Direct Bilirubin AST Ammonia C-Reactive Protein Total Protein Albumin Triglycerides HDL Cholesterol Lipase TSH Free T4 Urine WBC (Auto) Salicylates Acetaminophen 09/12/18 09/12/18 09/12/18 08:05 08:05 17:10 WBC 11.7 H RBC Hgb Hct MCV RDW Plt Count 124 L Lymph % (Auto) Lymph # Seg Neutrophils % Seg Neuts % (Manual) 89.0 H Lymphocytes % (Manual) 9.0 L Seg Neutrophils # Seg Neutrophils # Man 10.4 H Lymphocytes # (Manual) 1.1 L PT INR D-Dimer POC ABG pH POC ABG pCO2 POC ABG pO2 Sodium Potassium Chloride 97.1 L Carbon Dioxide 38 H BUN 34 H Creatinine 0.7 L Glucose 127 H POC Glucose 134 H Lactic Acid Calcium 10.3 H Magnesium Total Bilirubin Direct Bilirubin AST Ammonia C-Reactive Protein Total Protein Albumin Triglycerides HDL Cholesterol Lipase TSH Free T4 Urine WBC (Auto) Salicylates Acetaminophen 09/13/18 09/13/18 09/13/18 00:09 04:41 04:41 WBC 11.5 H RBC 5.15 H Hgb Hct 47.2 H MCV RDW Plt Count 129 L Lymph % (Auto) Lymph # Seg Neutrophils % Seg Neuts % (Manual) 89.0 H Lymphocytes % (Manual) 5.0 L Seg Neutrophils # Seg Neutrophils # Man 10.2 H Lymphocytes # (Manual) 0.6 L PT INR D-Dimer POC ABG pH POC ABG pCO2 POC ABG pO2 Sodium Potassium Chloride 96.6 L Carbon Dioxide 34 H BUN 38 H Creatinine Glucose 197 H POC Glucose 149 H Lactic Acid Calcium Magnesium Total Bilirubin Direct Bilirubin AST Ammonia C-Reactive Protein Total Protein Albumin Triglycerides HDL Cholesterol Lipase TSH Free T4 Urine WBC (Auto) Salicylates Acetaminophen 09/13/18 05:10 WBC RBC Hgb Hct MCV RDW Plt Count Lymph % (Auto) Lymph # Seg Neutrophils % Seg Neuts % (Manual) Lymphocytes % (Manual) Seg Neutrophils # Seg Neutrophils # Man Lymphocytes # (Manual) PT INR D-Dimer POC ABG pH POC ABG pCO2 POC ABG pO2 Sodium Potassium Chloride Carbon Dioxide BUN Creatinine Glucose POC Glucose 199 H Lactic Acid Calcium Magnesium Total Bilirubin Direct Bilirubin AST Ammonia C-Reactive Protein Total Protein Albumin Triglycerides HDL Cholesterol Lipase TSH Free T4 Urine WBC (Auto) Salicylates Acetaminophen
--- NOTE | 2018-09-13 12:30 | Progress Note ---
Assessment and Plan 68 YO Male with Obesity Hypoventilation, COPD presents to ED for evaluation. Pt is confused, lethargic and unable to provide history. Pt history provided by his brother who is at bedside during exam and interview. As per brother, the patient has not returned phone calls over the past 4 days. As a result, the brother went to the home but the patient did not answer the door. Law Enforcement notified, and entry into the home was obtained. The patient was found down and covered in his own feces. Pt exhibited slurred speech, confusion. EMS notified and upon arrival, the patient was found to have a neurologic deficit. A code stroke was called, and the patient was transported to [facility]. Pt seen and evaluated in ED and found to have evidence of CVA as well as SIRS, Acidosis, and Encephalopathy. Pt admitted to telemetry and initiated on CVA protocol. He was intubated with concern for aspiration. Neurology consulted. Acute Metabolic encephalopathy -Likely from hypercapnia - CT, MRI head negative for CVA Delirium - Supportive care - patient is on restraints Acute Hypoxic Respiratory failure, COPD exacerbation - Patient extubated on 09/11 -Bronchodilators - Currently on intermittent oxygen - Cont IV Solu-Medrol Rectal Bleed - Evaluated by GI and they decreased his due to hemorrhoid - H&H stable Aspiration Pneumonia - Patient is treated with IV antibiotics, will finish antibiotic today - CTA showed right lower lobe pneumonia, no PE Obesity Hypoventilation syndrome - Oxygen support ETOH use disorder HYPOTHYRODISIM - On Synthroid Moderate Protien calorie Malnutrition - We'll consult nutrition when stable Secondary Coagulopathy ?UNDERLYING LIVER DISEASE VS IATROGENIC MEDICATION - Supportive care Sepsis - Resolved Tobacco use disorder per hx; counsell when stable Patient is on Anaya's cath is placed by urology. Diabetes mellitus Get A1c, lipid panel - on basal and sliding scale insulin - Consistent CHO diet DVT and GI PPx With Lovenox and Pepcid Disposition: Per clinical course Subjective Date of service: 09/13/18 Principal diagnosis: Ac Hypoxemic Resp failure; AE-COPD; Pneumonia (Aspiration); Ac encephalopat Interval history: still has shortness of breath. Denies any chest pain. Objective - Exam Narrative Exam: Constitutional: Well-nourished well-developed. In no distress Head: Normocephalic atraumatic Eyes: Pupils are equal round and reactive to light Nose: No enlarged turbinates, no septal deviation. Mouth: Moist mucous membranes. Neck: Supple no thyromegaly. No bruit. No JVD Heart: Regular rate and rhythm, S1-S2 normal. No rubs murmurs or gallop Lungs: Decreased breath sounds bilaterally with rhonchi Abdomen: Soft, nontender. Bowel sound are present. Extremities: No edema, no cyanosis, no clubbing. Neuro: Alert oriented Oriented x3. No focal sensory or motor deficit. Skin: No rashes or hyperpigmented spots Musculoskeletal system: No joint pain or swelling Hematological: No petechia or subcutanous hemorrhages. Immunological: No multiple septic spots on the skin Lymphatic: No generalized lymphadenopathy Psychiatry: Euthymic. Calm. - Constitutional Vitals: Vital Signs - 12hr 09/13/18 09/13/18 09/13/18 01:00 02:00 02:08 Temperature Pulse Rate 96 H Pulse Rate [ 107 H Anterior Bilateral Throughout] Pulse Rate [ From Monitor] Respiratory 23 15 Rate Respiratory 17 Rate [Anterior Bilateral Throughout] Blood Pressure 111/75 115/73 O2 Sat by Pulse 94 94 Oximetry 09/13/18 09/13/18 09/13/18 02:23 03:00 04:00 Temperature 98.6 F Pulse Rate 91 H 86 Pulse Rate [ 109 H Anterior Bilateral Throughout] Pulse Rate [ 89 From Monitor] Respiratory 20 31 H Rate Respiratory 17 Rate [Anterior Bilateral Throughout] Blood Pressure 107/69 112/81 O2 Sat by Pulse 96 95 Oximetry 09/13/18 09/13/18 09/13/18 05:01 05:08 06:00 Temperature Pulse Rate 88 88 90 Pulse Rate [ Anterior Bilateral Throughout] Pulse Rate [ From Monitor] Respiratory 24 18 32 H Rate Respiratory Rate [Anterior Bilateral Throughout] Blood Pressure 121/79 121/79 113/78 O2 Sat by Pulse 94 94 92 Oximetry 09/13/18 09/13/18 09/13/18 07:00 08:00 09:01 Temperature 98.2 F Pulse Rate 90 90 85 Pulse Rate [ Anterior Bilateral Throughout] Pulse Rate [ 89 From Monitor] Respiratory 33 H 41 H 25 H Rate Respiratory Rate [Anterior Bilateral Throughout] Blood Pressure 126/86 131/93 122/74 O2 Sat by Pulse 93 92 95 Oximetry 09/13/18 09/13/18 09/13/18 09:37 10:04 10:23 Temperature Pulse Rate Pulse Rate [ 85 85 Anterior Bilateral Throughout] Pulse Rate [ From Monitor] Respiratory Rate Respiratory 23 26 H Rate [Anterior Bilateral Throughout] Blood Pressure O2 Sat by Pulse 95 Oximetry - Labs CBC & Chem 7: 09/13/18 04:41 09/13/18 04:41 Labs: Abnormal lab results 09/12/18 09/13/18 09/13/18 Range/Units 17:10 00:09 04:41 WBC 11.5 H (4.5-11.0) K/mm3 RBC 5.15 H (3.65-5.03) M/mm3 Hct 47.2 H (35.5-45.6) % Plt Count 129 L (140-440) K/mm3 Seg Neuts % (Manual) 89.0 H (40.0-70.0) % Lymphocytes % (Manual) 5.0 L (13.4-35.0) % Seg Neutrophils # Man 10.2 H (1.8-7.7) K/mm3 Lymphocytes # (Manual) 0.6 L (1.2-5.4) K/mm3 Chloride (98-107) mmol/L Carbon Dioxide (22-30) mmol/L BUN (9-20) mg/dL Glucose (75-100) mg/dL POC Glucose 134 H 149 H (70-105) 09/13/18 09/13/18 Range/Units 04:41 05:10 WBC (4.5-11.0) K/mm3 RBC (3.65-5.03) M/mm3 Hct (35.5-45.6) % Plt Count (140-440) K/mm3 Seg Neuts % (Manual) (40.0-70.0) % Lymphocytes % (Manual) (13.4-35.0) % Seg Neutrophils # Man (1.8-7.7) K/mm3 Lymphocytes # (Manual) (1.2-5.4) K/mm3 Chloride 96.6 L (98-107) mmol/L Carbon Dioxide 34 H (22-30) mmol/L BUN 38 H (9-20) mg/dL Glucose 197 H (75-100) mg/dL POC Glucose 199 H (70-105)
--- NOTE | 2018-09-13 12:48 | Consultation ---
HISTORY OF PRESENT ILLNESS: This is a 68-year-old white male that was initially admitted to [facility] on 09/02/2018. I had the opportunity to speak to his brother who is quite familiar with his medical care. A more complete and accurate history was obtained and he when brought to the hospital, he may have had symptoms of a stroke, but prior to that was having respiratory distress, dyspnea and had been seen at [facility] for infectious illness. He was not provided with antibiotic. At that point, he was having chills, fever, delirium. He was not admitted to [facility], sent back home without receiving any definitive medical treatment per the brother's direct observation. After being returned home, he apparently was unresponsive for about 4 days. The brother found him in a comatose condition with altered mental status, advanced dehydration. He was brought to the hospital where he was found to have hypernatremia and he was in acute renal failure. He has not had similar illnesses to this in the past. From speaking to his brother, he has never had a history of seizure or stroke. I did ask about the history of drinking. He states he was not a heavy drinker, got occasional beer. The brother did not seem to indicate that this was a serious problem. He had had no prior histories of delirium or alcohol withdrawal. The patient had not been on CPAP for any respiratory treatment previously. He saw a number of doctors at [facility] but overall his history was quite unremarkable as far as what may have preceded this current illness. PAST MEDICAL HISTORY: Otherwise, not obtainable from the patient but from speaking with the brother, he does not take drugs. He is not on antidepressants, benzodiazepines or opiates. He does apparently have a past medical history of diabetes, which is being managed at [facility]. PHYSICAL EXAMINATION: On my examination at this point, he is still quite obtunded. He is on a CPAP. He has full ocular movements. He moves all extremities. He does not have tremors. No seizure activity present. He does not follow simple commands. He does appear to look about the room, but does not speak. He has no tremors and no asterixis. There is otherwise no focal motor weakness. IMPRESSION: Certainly, the history would indicate that the patient had a febrile illness. There is also superimposed history of severe diabetes with renal failure, hypernatremia producing encephalopathy. The patient has low albumin of 2.4 and elevated bilirubin on admission with high AST of 44. I also did check his PT, which was 20.8. I do not think he was on Coumadin therapy. So, at the time of admission, he may have severe hepatorenal dysfunction, but the basis of this may be infectious versus some component of alcohol use, although the brother seems to deny any heavy alcohol use from direct observation. I will follow the patient with you. JOB# [id number] TAMANNA/DAVID
--- NOTE | 2018-09-13 13:04 | Progress Note ---
Assessment and Plan - Patient Problems (1) Hypernatremia Current Visit: Yes Status: Acute Plan to address problem: Secondary to free water losses in the setting of decreased PO intake, now resolved (2) Acute renal failure Current Visit: Yes Status: Acute Plan to address problem: Overall renal function stable. Non-oliguric at present time based on I/O. Anaya placed for accurate I/O (3) Encephalopathy Current Visit: Yes Status: Acute Plan to address problem: Management per primary team. He is more awake this am but has had issues with agitation per nursing staff. (4) Hypercalcemia Current Visit: Yes Status: Acute Plan to address problem: due to dehydration. Levels had been stable with IV hydration Subjective Date of service: 09/13/18 Principal diagnosis: Ac Hypoxemic Resp failure; AE-COPD; Pneumonia (Aspiration); Ac encephalopat Interval history: Pt awake, alert, in NAD. fluctuating mental status reported. Objective - Vital Signs Vital signs: Vital Signs - 12hr 09/13/18 09/13/18 09/13/18 02:00 02:08 02:23 Temperature Pulse Rate 96 H Pulse Rate [ 107 H 109 H Anterior Bilateral Throughout] Pulse Rate [ From Monitor] Respiratory 15 Rate Respiratory 17 17 Rate [Anterior Bilateral Throughout] Blood Pressure 115/73 O2 Sat by Pulse 94 Oximetry 09/13/18 09/13/18 09/13/18 03:00 04:00 05:01 Temperature 98.6 F Pulse Rate 91 H 86 88 Pulse Rate [ Anterior Bilateral Throughout] Pulse Rate [ 89 From Monitor] Respiratory 20 31 H 24 Rate Respiratory Rate [Anterior Bilateral Throughout] Blood Pressure 107/69 112/81 121/79 O2 Sat by Pulse 96 95 94 Oximetry 09/13/18 09/13/18 09/13/18 05:08 06:00 07:00 Temperature Pulse Rate 88 90 90 Pulse Rate [ Anterior Bilateral Throughout] Pulse Rate [ From Monitor] Respiratory 18 32 H 33 H Rate Respiratory Rate [Anterior Bilateral Throughout] Blood Pressure 121/79 113/78 126/86 O2 Sat by Pulse 94 92 93 Oximetry 09/13/18 09/13/18 09/13/18 08:00 09:01 09:37 Temperature 98.2 F Pulse Rate 90 85 Pulse Rate [ 85 Anterior Bilateral Throughout] Pulse Rate [ 89 From Monitor] Respiratory 41 H 25 H Rate Respiratory 23 Rate [Anterior Bilateral Throughout] Blood Pressure 131/93 122/74 O2 Sat by Pulse 92 95 Oximetry 09/13/18 09/13/18 10:04 10:23 Temperature Pulse Rate Pulse Rate [ 85 Anterior Bilateral Throughout] Pulse Rate [ From Monitor] Respiratory Rate Respiratory 26 H Rate [Anterior Bilateral Throughout] Blood Pressure O2 Sat by Pulse 95 Oximetry - General Appearance General appearance: well-developed, appears stated age, chronically ill EENT: ATNC, PERRL, mucous membranes moist Neck: no JVD Respiratory: Present: Decreased Breath Sounds Cardiology: regular, S1S2 Gastrointestinal: normoactive bowel sounds Integumentary: no rash, other (no edema ) Neurologic: no focal deficit, alert and oriented x3, strength 5/5, CN 3-12 intact Psychiatric: mood/affect appropriate, cooperative - Lab 09/13/18 04:41 09/13/18 04:41 Most recent lab results Calcium 10.1 mg/dL (8.4-10.2) 09/13/18 04:41 Magnesium 2.40 mg/dL (1.7-2.3) H 09/11/18 23:44 Medications & Allergies - Medications Allergies/Adverse Reactions: Allergies No Known Allergies Allergy (Verified 09/02/18 13:48) Home Medications: Home Medications Medication Instructions Recorded Confirmed Last Taken Type Hydrochlorothiazide 25 mg PO DAILY 09/07/18 09/07/18 Unknown History Lisinopril 5 mg PO DAILY 09/07/18 09/07/18 Unknown History Rosuvastatin Calcium 40 mg PO DAILY 09/07/18 09/07/18 Unknown History Tamsulosin 0.4 mg PO DAILY 09/07/18 09/07/18 Unknown History metFORMIN 500 mg PO BID 09/07/18 09/07/18 Unknown History Active Medications: Generic Name Dose Route Start Last Admin Trade Name Freq PRN Reason Stop Dose Admin Acetaminophen 650 mg 09/02/18 15:03 Tylenol PO Q4H PRN Pain, Mild (1-3) Albuterol 2.5 mg 09/06/18 17:35 09/11/18 13:11 Proventil IH 2.5 mg Q4HRT PRN Administration Shortness Of Breath Albuterol/Ipratropium 1 ampul 09/06/18 17:35 09/13/18 09:37 Duoneb *Not For Prn Use* IH 1 ampul Q6HRT ROXY Administration Arformoterol Tartrate 15 mcg 09/06/18 20:45 09/13/18 09:37 Brovana Nebu IH 15 mcg Q12HRT ROXY Administration Atorvastatin Calcium 40 mg 09/02/18 22:00 09/13/18 00:11 Lipitor PO 40 mg QHS ROXY Administration Bisacodyl 10 mg 09/02/18 15:03 Dulcolax NV QDAY PRN Constipation Budesonide 0.5 mg 09/07/18 08:00 09/13/18 09:36 Pulmicort IH 0.5 mg Q12HRT ROXY Administration Bupropion HCl 150 mg 09/11/18 10:00 09/13/18 10:08 Wellbutrin PO 150 mg BID ROXY Administration Dextrose 50 ml 09/08/18 10:58 D50w (25gm) Syringe IV PRN PRN Hypoglycemia Docusate Sodium 100 mg 09/10/18 12:00 09/13/18 10:07 Colace FEEDTUBE 100 mg BID ROXY Administration Enoxaparin Sodium 40 mg 09/08/18 15:00 09/13/18 10:08 Lovenox SUB-Q 40 mg QDAY@1000 ROXY Administration Gentamicin Sulfate 1 drops 09/12/18 14:00 09/13/18 10:12 Gentamicin 0.3% Ophth Soln OU 09/16/18 13:59 1 drops Q4HR ROXY Administration Haloperidol Lactate 5 mg 09/09/18 14:18 09/11/18 13:27 Haldol IV 5 mg Q6H PRN Administration Agitation Hydrochlorothiazide 25 mg 09/12/18 14:30 09/13/18 10:08 Hctz PO 25 mg QDAY ROXY Administration Hydrocortisone Acetate 1 applic 09/04/18 16:00 09/13/18 06:27 Proctosol-Hc NV 1 applic Q8HR ROXY Administration Hydrophilic Ointment 1 applic 09/06/18 15:34 Vaseline Lip Therapy TP Q2H PRN Dry Lips Dextrose 1,000 mls @ 100 mls/hr 09/09/18 07:00 09/13/18 05:01 D5w IV 100 mls/hr DIRECT ROXY Administration Insulin Glargine 10 units 09/09/18 22:00 09/13/18 01:46 Lantus SUB-Q Not Given QHS ROXY Insulin Human Lispro 0 unit 09/08/18 12:00 09/13/18 06:27 Humalog SUB-Q 2 unit Q6HR ROXY Administration Protocol Lactulose 20 gm 09/08/18 18:29 Cephulac PO Q6HR PRN Delerium Lactulose 20 gm 09/12/18 11:00 09/13/18 00:12 Cephulac PO 20 gm QHS ROXY Administration Lansoprazole 30 mg 09/08/18 10:00 09/13/18 10:09 Prevacid Solutab FEEDTUBE 30 mg QDAY [facility] Administration Magnesium Hydroxide 30 ml 09/02/18 15:03 Milk Of Magnesia PO Q4H PRN Constipation Methylprednisolone Sodium Succinate 40 mg 09/13/18 10:00 09/13/18 10:07 Solu-Medrol IV 09/13/18 22:01 40 mg Q12HR ROXY Administration Methylprednisolone Sodium Succinate 40 mg 09/14/18 10:00 Solu-Medrol IV 09/14/18 10:01 DAILY [facility] Metoclopramide HCl 10 mg 09/02/18 15:03 Reglan PO Q6H PRN Nausea And Vomiting Multi-Ingred Cream/Lotion/Oil/Oint 1 applic 09/06/18 15:34 Artificial Tears Ophth Oint OU Q4H PRN Dry Eye(s) Ondansetron HCl 4 mg 09/02/18 15:03 Zofran IV Q8H PRN Nausea And Vomiting Prednisone 10 mg 09/15/18 10:00 Deltasone PO QDAY [facility] Promethazine HCl 25 mg 09/02/18 15:03 Phenergan NV Q6H PRN Nausea And Vomiting Sodium Chloride 10 ml 09/02/18 15:03 Sodium Chloride Flush Syringe 10 Ml IV PRN PRN LINE FLUSH Tamsulosin HCl 0.4 mg 09/07/18 15:00 09/13/18 10:07 Flomax PO 0.4 mg QDAY [facility] Administration
--- NOTE | 2018-09-13 21:51 | Progress Note ---
Assessment and Plan Patient sleeping at this time on BIPAP BIPAP 16/8, FIO2 32%, Rate 16. Patients O2 saturation 97%. Patient tolerating BIPAP settings good. No acute respiratory distress. - Patient Problems (1) Obesity hypoventilation syndrome Current Visit: Yes Status: Acute Plan to address problem: Patient is on BIPAP 16/8, rate 16, FIO2 32% Albuterol/atrovent aerosol treatments q 6 hours. Continue I/V solumedrol. Continue S/C Lovenox. Continue prevacid. (2) Altered mental status Current Visit: Yes Status: Acute Plan to address problem: Mangement as per primary care and neurology. (3) Acute kidney injury Current Visit: Yes Status: Acute Plan to address problem: Management as per nephrology. (4) SIRS (systemic inflammatory response syndrome) Current Visit: Yes Status: Acute Plan to address problem: Patient is on steroids and also on other anti inflammatory medications. Subjective Date of service: 09/13/18 Principal diagnosis: Ac Hypoxemic Resp failure; AE-COPD; Pneumonia (Aspiration); Ac encephalopat Interval history: Patient sleeping at this time on BIPAP BIPAP 16/8, FIO2 32%, Rate 16. Patients O2 saturation 97%. Patient tolerating BIPAP settings good. No acute respiratory distress. Objective Vital Signs - 12hr 09/13/18 09/13/18 09/13/18 10:01 10:04 10:23 Temperature Pulse Rate 84 Pulse Rate [ 85 Anterior Bilateral Throughout] Pulse Rate [ From Monitor] Respiratory 23 Rate Respiratory 26 H Rate [Anterior Bilateral Throughout] Blood Pressure 92/58 O2 Sat by Pulse 92 95 Oximetry 09/13/18 09/13/18 09/13/18 11:00 12:00 13:01 Temperature 97.6 F Pulse Rate 87 88 88 Pulse Rate [ Anterior Bilateral Throughout] Pulse Rate [ 89 From Monitor] Respiratory 16 22 30 H Rate Respiratory Rate [Anterior Bilateral Throughout] Blood Pressure 92/58 126/81 109/66 O2 Sat by Pulse 92 91 91 Oximetry 09/13/18 09/13/18 09/13/18 14:00 14:15 14:33 Temperature Pulse Rate 88 Pulse Rate [ 90 89 Anterior Bilateral Throughout] Pulse Rate [ From Monitor] Respiratory 28 H Rate Respiratory 20 23 Rate [Anterior Bilateral Throughout] Blood Pressure 117/70 O2 Sat by Pulse 92 Oximetry 09/13/18 09/13/1809/13/19 15:01 16:00 16:01 Temperature 97.5 F L Pulse Rate 93 H 90 Pulse Rate [ Anterior Bilateral Throughout] Pulse Rate [ 89 From Monitor] Respiratory 31 H 34 H 18 Rate Respiratory Rate [Anterior Bilateral Throughout] Blood Pressure 116/88 123/24 O2 Sat by Pulse 92 96 91 Oximetry 09/13/18 09/13/18 09/13/18 17:01 18:01 19:32 Temperature Pulse Rate 91 H 88 Pulse Rate [ 89 Anterior Bilateral Throughout] Pulse Rate [ From Monitor] Respiratory 29 H 21 Rate Respiratory 20 Rate [Anterior Bilateral Throughout] Blood Pressure 118/78 97/49 O2 Sat by Pulse 90 94 Oximetry 09/13/18 09/13/18 09/13/18 19:33 19:47 20:00 Temperature 98.2 F Pulse Rate 88 Pulse Rate [ 91 H Anterior Bilateral Throughout] Pulse Rate [ 89 From Monitor] Respiratory 27 H Rate Respiratory 20 Rate [Anterior Bilateral Throughout] Blood Pressure O2 Sat by Pulse 94 94 Oximetry Constitutional: no acute distress, asleep, other (elderly looking CM, normocephalic and atraumatic sitting out of bed in a chair) Eyes: non-icteric ENT: oropharynx moist, other Neck: supple, no lymphadenopathy, no JVD, other (large neck circumference) Effort: mildly labored Ascultation: Bilateral: diminished breath sounds, rhonchi Percussion: Bilateral: not dull Cardiovascular: regular rate and rhythm, other (S1,S2, no murmurs, gallops or rubs) Gastrointestinal: normoactive bowel sounds, soft, non-tender, non-distended Integumentary: normal Extremities: no cyanosis, no edema, pink and warm, pulses normal Neurologic: non-focal exam, pupils equal and round, motor strength normal and, other (intention tremors) Psychiatric: other (unable to assess adequately) CBC and BMP: 09/13/18 04:41 09/13/18 04:41 ABG, PT/INR, D-dimer: ABG POC ABG pH 7.534 (7.35-7.45) H 09/12/18 05:29 POC ABG pCO2 50.4 (35-45) H 09/12/18 05:29 POC ABG pO2 86 (80-105) 09/12/18 05:29 POC ABG HCO3 42.5 09/12/18 05:29 POC ABG Total CO2 44 09/12/18 05:29 POC ABG O2 Sat 97 09/12/18 05:29 PT/INR, D-dimer PT 21.8 Sec. (12.2-14.9) H 09/03/18 11:26 INR 1.86 (0.87-1.13) H 09/03/18 11:26 D-Dimer 4180.35 ng/mlDDU (0-234) H 09/02/18 12:35 Abnormal lab findings: Abnormal Labs 09/02/18 09/02/18 09/02/18 12:35 12:35 12:35 WBC RBC 6.15 H Hgb 18.7 H Hct 57.7 H MCV RDW 15.5 H Plt Count Lymph % (Auto) 8.8 L Lymph # 0.9 L Seg Neutrophils % 83.2 H Seg Neuts % (Manual) Lymphocytes % (Manual) Seg Neutrophils # 8.9 H Seg Neutrophils # Man Lymphocytes # (Manual) PT 20.8 H INR 1.74 H D-Dimer 4180.35 H POC ABG pH POC ABG pCO2 POC ABG pO2 Sodium Potassium Chloride Carbon Dioxide BUN Creatinine Glucose POC Glucose Lactic Acid Calcium Magnesium Total Bilirubin Direct Bilirubin AST Ammonia C-Reactive Protein Total Protein Albumin Triglycerides HDL Cholesterol Lipase TSH Free T4 Urine WBC (Auto) Salicylates < 0.3 L Acetaminophen 09/02/18 09/02/18 09/02/18 12:35 12:35 12:35 WBC RBC Hgb Hct MCV RDW Plt Count Lymph % (Auto) Lymph # Seg Neutrophils % Seg Neuts % (Manual) Lymphocytes % (Manual) Seg Neutrophils # Seg Neutrophils # Man Lymphocytes # (Manual) PT INR D-Dimer POC ABG pH POC ABG pCO2 POC ABG pO2 Sodium Potassium Chloride Carbon Dioxide BUN Creatinine Glucose POC Glucose 167 H Lactic Acid 3.20 H* Calcium Magnesium Total Bilirubin Direct Bilirubin AST Ammonia C-Reactive Protein Total Protein Albumin Triglycerides HDL Cholesterol Lipase TSH Free T4 Urine WBC (Auto) Salicylates Acetaminophen < 5.0 L 09/02/18 09/02/18 09/02/18 13:36 14:40 16:45 WBC RBC Hgb Hct MCV RDW Plt Count Lymph % (Auto) Lymph # Seg Neutrophils % Seg Neuts % (Manual) Lymphocytes % (Manual) Seg Neutrophils # Seg Neutrophils # Man Lymphocytes # (Manual) PT INR D-Dimer POC ABG pH POC ABG pCO2 POC ABG pO2 Sodium 159 H Potassium Chloride 114.7 H Carbon Dioxide BUN 90 H Creatinine Glucose 172 H POC Glucose Lactic Acid 2.30 H* Calcium 10.8 H Magnesium Total Bilirubin Direct Bilirubin 0.3 H AST Ammonia C-Reactive Protein Total Protein Albumin 2.6 L Triglycerides HDL Cholesterol Lipase 81 H TSH < 0.005 L Free T4 2.40 H Urine WBC (Auto) Salicylates Acetaminophen 09/03/18 09/03/18 09/03/18 11:26 11:26 11:26 WBC RBC Hgb Hct MCV RDW Plt Count Lymph % (Auto) Lymph # Seg Neutrophils % Seg Neuts % (Manual) Lymphocytes % (Manual) Seg Neutrophils # Seg Neutrophils # Man Lymphocytes # (Manual) PT 21.8 H INR 1.86 H D-Dimer POC ABG pH POC ABG pCO2 POC ABG pO2 Sodium 160 H Potassium Chloride 122.6 H Carbon Dioxide BUN 69 H Creatinine Glucose 127 H POC Glucose Lactic Acid Calcium Magnesium Total Bilirubin Direct Bilirubin AST Ammonia C-Reactive Protein Total Protein Albumin 2.1 L Triglycerides HDL Cholesterol Lipase TSH Free T4 Urine WBC (Auto) Salicylates Acetaminophen 09/03/18 09/03/18 09/03/18 11:26 15:39 20:23 WBC RBC Hgb Hct MCV RDW Plt Count Lymph % (Auto) Lymph # Seg Neutrophils % Seg Neuts % (Manual) Lymphocytes % (Manual) Seg Neutrophils # Seg Neutrophils # Man Lymphocytes # (Manual) PT INR D-Dimer POC ABG pH POC ABG pCO2 POC ABG pO2 Sodium 160 H 160 H Potassium Chloride Carbon Dioxide BUN Creatinine Glucose POC Glucose Lactic Acid Calcium Magnesium Total Bilirubin Direct Bilirubin AST Ammonia 75.0 H C-Reactive Protein Total Protein Albumin Triglycerides HDL Cholesterol Lipase TSH Free T4 Urine WBC (Auto) Salicylates Acetaminophen 09/03/18 09/04/18 09/04/18 Unknown 02:38 05:20 WBC RBC Hgb Hct MCV RDW Plt Count Lymph % (Auto) Lymph # Seg Neutrophils % Seg Neuts % (Manual) Lymphocytes % (Manual) Seg Neutrophils # Seg Neutrophils # Man Lymphocytes # (Manual) PT INR D-Dimer POC ABG pH POC ABG pCO2 POC ABG pO2 Sodium 160 H 166 H* Potassium Chloride 129.2 H Carbon Dioxide BUN 57 H Creatinine Glucose 137 H POC Glucose Lactic Acid Calcium Magnesium Total Bilirubin Direct Bilirubin AST Ammonia C-Reactive Protein Total Protein 5.8 L Albumin 2.7 L Triglycerides 150 H HDL Cholesterol 21 L Lipase TSH Free T4 Urine WBC (Auto) Salicylates Acetaminophen 09/04/18 09/04/18 09/04/18 05:20 09:11 13:35 WBC RBC 5.12 H Hgb 15.5 H D 15.6 H Hct 48.0 H D 48.1 H MCV RDW 15.9 H Plt Count Lymph % (Auto) 11.8 L Lymph # 0.8 L Seg Neutrophils % 80.1 H Seg Neuts % (Manual) Lymphocytes % (Manual) Seg Neutrophils # Seg Neutrophils # Man Lymphocytes # (Manual) PT INR D-Dimer POC ABG pH POC ABG pCO2 POC ABG pO2 Sodium 166 H* Potassium Chloride Carbon Dioxide BUN Creatinine Glucose POC Glucose Lactic Acid Calcium Magnesium Total Bilirubin Direct Bilirubin AST Ammonia C-Reactive Protein Total Protein Albumin Triglycerides HDL Cholesterol Lipase TSH Free T4 Urine WBC (Auto) Salicylates Acetaminophen 09/04/18 09/04/18 09/04/18 13:35 21:04 21:04 WBC RBC Hgb 16.9 H Hct 58.3 H D MCV RDW Plt Count Lymph % (Auto) Lymph # Seg Neutrophils % Seg Neuts % (Manual) Lymphocytes % (Manual) Seg Neutrophils # Seg Neutrophils # Man Lymphocytes # (Manual) PT INR D-Dimer POC ABG pH POC ABG pCO2 POC ABG pO2 Sodium 164 H* 159 H Potassium Chloride Carbon Dioxide BUN Creatinine Glucose POC Glucose Lactic Acid Calcium Magnesium Total Bilirubin Direct Bilirubin AST Ammonia C-Reactive Protein Total Protein Albumin Triglycerides HDL Cholesterol Lipase TSH Free T4 Urine WBC (Auto) Salicylates Acetaminophen 09/05/18 09/05/18 09/05/18 01:11 02:51 03:17 WBC RBC Hgb Hct MCV RDW Plt Count Lymph % (Auto) Lymph # Seg Neutrophils % Seg Neuts % (Manual) Lymphocytes % (Manual) Seg Neutrophils # Seg Neutrophils # Man Lymphocytes # (Manual) PT INR D-Dimer POC ABG pH 7.340 L POC ABG pCO2 57.8 H POC ABG pO2 74 L Sodium 152 H Potassium Chloride Carbon Dioxide BUN Creatinine Glucose POC Glucose 116 H Lactic Acid Calcium Magnesium Total Bilirubin Direct Bilirubin AST Ammonia C-Reactive Protein Total Protein Albumin Triglycerides HDL Cholesterol Lipase TSH Free T4 Urine WBC (Auto) Salicylates Acetaminophen 09/05/18 09/05/18 09/05/18 07:45 10:34 15:21 WBC RBC Hgb Hct MCV RDW Plt Count Lymph % (Auto) Lymph # Seg Neutrophils % Seg Neuts % (Manual) Lymphocytes % (Manual) Seg Neutrophils # Seg Neutrophils # Man Lymphocytes # (Manual) PT INR D-Dimer POC ABG pH POC ABG pCO2 POC ABG pO2 Sodium 156 H 153 H Potassium Chloride Carbon Dioxide BUN Creatinine Glucose POC Glucose Lactic Acid Calcium Magnesium Total Bilirubin Direct Bilirubin AST Ammonia 61.0 H C-Reactive Protein Total Protein Albumin Triglycerides HDL Cholesterol Lipase TSH Free T4 Urine WBC (Auto) Salicylates Acetaminophen 09/06/18 09/06/18 09/06/18 05:10 05:10 08:43 WBC RBC 5.06 H Hgb Hct 47.8 H D MCV RDW 15.3 H Plt Count Lymph % (Auto) Lymph # Seg Neutrophils % Seg Neuts % (Manual) Lymphocytes % (Manual) Seg Neutrophils # Seg Neutrophils # Man Lymphocytes # (Manual) PT INR D-Dimer POC ABG pH POC ABG pCO2 POC ABG pO2 Sodium 155 H 150 H Potassium Chloride 117.0 H Carbon Dioxide BUN 36 H Creatinine Glucose 143 H POC Glucose Lactic Acid Calcium Magnesium Total Bilirubin Direct Bilirubin AST Ammonia C-Reactive Protein Total Protein Albumin Triglycerides HDL Cholesterol Lipase TSH Free T4 Urine WBC (Auto) Salicylates Acetaminophen 09/06/18 09/06/18 09/06/18 13:21 15:11 16:23 WBC RBC Hgb Hct MCV RDW Plt Count Lymph % (Auto) Lymph # Seg Neutrophils % Seg Neuts % (Manual) Lymphocytes % (Manual) Seg Neutrophils # Seg Neutrophils # Man Lymphocytes # (Manual) PT INR D-Dimer POC ABG pH POC ABG pCO2 49.1 H POC ABG pO2 107 H Sodium 151 H Potassium Chloride Carbon Dioxide BUN Creatinine Glucose POC Glucose 120 H Lactic Acid Calcium Magnesium Total Bilirubin Direct Bilirubin AST Ammonia C-Reactive Protein Total Protein Albumin Triglycerides HDL Cholesterol Lipase TSH Free T4 Urine WBC (Auto) Salicylates Acetaminophen 09/06/18 09/07/18 09/07/18 21:58 00:25 02:49 WBC RBC 5.32 H Hgb 16.1 H Hct 50.2 H MCV 95 H RDW 15.6 H Plt Count Lymph % (Auto) Lymph # Seg Neutrophils % Seg Neuts % (Manual) Lymphocytes % (Manual) Seg Neutrophils # Seg Neutrophils # Man Lymphocytes # (Manual) PT INR D-Dimer POC ABG pH POC ABG pCO2 POC ABG pO2 Sodium 150 H Potassium Chloride Carbon Dioxide BUN Creatinine Glucose POC Glucose Lactic Acid Calcium Magnesium Total Bilirubin Direct Bilirubin AST Ammonia C-Reactive Protein 9.00 H Total Protein Albumin Triglycerides HDL Cholesterol Lipase TSH Free T4 Urine WBC (Auto) Salicylates Acetaminophen 09/07/18 09/07/18 09/07/18 02:49 03:43 09:17 WBC RBC Hgb Hct MCV RDW Plt Count Lymph % (Auto) Lymph # Seg Neutrophils % Seg Neuts % (Manual) Lymphocytes % (Manual) Seg Neutrophils # Seg Neutrophils # Man Lymphocytes # (Manual) PT INR D-Dimer POC ABG pH POC ABG pCO2 46.5 H POC ABG pO2 Sodium 149 H 155 H Potassium 5.2 H D Chloride 116.1 H Carbon Dioxide 21 L BUN 47 H Creatinine Glucose 122 H POC Glucose Lactic Acid Calcium Magnesium Total Bilirubin 1.80 H Direct Bilirubin AST 83 H Ammonia C-Reactive Protein Total Protein Albumin 1.8 L Triglycerides HDL Cholesterol Lipase TSH Free T4 Urine WBC (Auto) Salicylates Acetaminophen 09/07/18 09/08/18 09/08/18 16:02 00:14 00:51 WBC RBC Hgb Hct MCV RDW Plt Count Lymph % (Auto) Lymph # Seg Neutrophils % Seg Neuts % (Manual) Lymphocytes % (Manual) Seg Neutrophils # Seg Neutrophils # Man Lymphocytes # (Manual) PT INR D-Dimer POC ABG pH POC ABG pCO2 POC ABG pO2 Sodium 156 H 154 H Potassium Chloride Carbon Dioxide BUN Creatinine Glucose POC Glucose Lactic Acid Calcium Magnesium Total Bilirubin Direct Bilirubin AST Ammonia C-Reactive Protein Total Protein Albumin Triglycerides HDL Cholesterol Lipase TSH Free T4 Urine WBC (Auto) 41.0 H Salicylates Acetaminophen 09/08/18 09/08/18 09/08/18 04:22 04:22 04:46 WBC RBC Hgb Hct MCV 95 H RDW 15.3 H Plt Count Lymph % (Auto) Lymph # Seg Neutrophils % Seg Neuts % (Manual) Lymphocytes % (Manual) Seg Neutrophils # Seg Neutrophils # Man Lymphocytes # (Manual) PT INR D-Dimer POC ABG pH POC ABG pCO2 55.3 H POC ABG pO2 77 L Sodium 153 H Potassium 3.5 L D Chloride 114.8 H Carbon Dioxide BUN 69 H Creatinine Glucose 277 H POC Glucose Lactic Acid Calcium Magnesium Total Bilirubin Direct Bilirubin AST 44 H Ammonia C-Reactive Protein Total Protein 5.6 L Albumin 2.4 L Triglycerides HDL Cholesterol Lipase TSH Free T4 Urine WBC (Auto) Salicylates Acetaminophen 09/08/18 09/08/18 09/08/18 08:40 12:03 15:43 WBC RBC Hgb Hct MCV RDW Plt Count Lymph % (Auto) Lymph # Seg Neutrophils % Seg Neuts % (Manual) Lymphocytes % (Manual) Seg Neutrophils # Seg Neutrophils # Man Lymphocytes # (Manual) PT INR D-Dimer POC ABG pH POC ABG pCO2 POC ABG pO2 Sodium 154 H 152 H Potassium Chloride Carbon Dioxide BUN Creatinine Glucose POC Glucose 186 H Lactic Acid Calcium Magnesium Total Bilirubin Direct Bilirubin AST Ammonia C-Reactive Protein Total Protein Albumin Triglycerides HDL Cholesterol Lipase TSH Free T4 Urine WBC (Auto) Salicylates Acetaminophen 09/08/18 09/08/18 09/09/18 17:57 23:54 04:01 WBC RBC Hgb Hct MCV 95 H RDW 15.3 H Plt Count 130 L Lymph % (Auto) Lymph # Seg Neutrophils % Seg Neuts % (Manual) Lymphocytes % (Manual) Seg Neutrophils # Seg Neutrophils # Man Lymphocytes # (Manual) PT INR D-Dimer POC ABG pH POC ABG pCO2 POC ABG pO2 Sodium Potassium Chloride Carbon Dioxide BUN Creatinine Glucose POC Glucose 252 H 297 H Lactic Acid Calcium Magnesium Total Bilirubin Direct Bilirubin AST Ammonia C-Reactive Protein Total Protein Albumin Triglycerides HDL Cholesterol Lipase TSH Free T4 Urine WBC (Auto) Salicylates Acetaminophen 09/09/18 09/09/18 09/09/18 04:01 04:33 05:32 WBC RBC Hgb Hct MCV RDW Plt Count Lymph % (Auto) Lymph # Seg Neutrophils % Seg Neuts % (Manual) Lymphocytes % (Manual) Seg Neutrophils # Seg Neutrophils # Man Lymphocytes # (Manual) PT INR D-Dimer POC ABG pH 7.267 L POC ABG pCO2 76.6 H POC ABG pO2 69 L Sodium 150 H Potassium Chloride 110.9 H Carbon Dioxide 32 H BUN 62 H Creatinine Glucose 220 H POC Glucose 196 H Lactic Acid Calcium 10.3 H Magnesium Total Bilirubin Direct Bilirubin AST Ammonia C-Reactive Protein Total Protein Albumin Triglycerides HDL Cholesterol Lipase TSH Free T4 Urine WBC (Auto) Salicylates Acetaminophen 09/09/18 09/09/18 09/09/18 11:40 17:57 23:36 WBC RBC Hgb Hct MCV RDW Plt Count Lymph % (Auto) Lymph # Seg Neutrophils % Seg Neuts % (Manual) Lymphocytes % (Manual) Seg Neutrophils # Seg Neutrophils # Man Lymphocytes # (Manual) PT INR D-Dimer POC ABG pH POC ABG pCO2 POC ABG pO2 Sodium Potassium Chloride Carbon Dioxide BUN Creatinine Glucose POC Glucose 217 H 172 H 131 H Lactic Acid Calcium Magnesium Total Bilirubin Direct Bilirubin AST Ammonia C-Reactive Protein Total Protein Albumin Triglycerides HDL Cholesterol Lipase TSH Free T4 Urine WBC (Auto) Salicylates Acetaminophen 09/10/18 09/10/18 09/10/18 05:07 05:07 05:51 WBC RBC Hgb Hct MCV RDW Plt Count 115 L Lymph % (Auto) Lymph # Seg Neutrophils % Seg Neuts % (Manual) 95.0 H Lymphocytes % (Manual) 3.0 L Seg Neutrophils # Seg Neutrophils # Man Lymphocytes # (Manual) 0.2 L PT INR D-Dimer POC ABG pH POC ABG pCO2 POC ABG pO2 Sodium 146 H Potassium Chloride Carbon Dioxide 33 H BUN 46 H Creatinine 0.7 L Glucose 174 H POC Glucose 169 H Lactic Acid Calcium 10.3 H Magnesium Total Bilirubin Direct Bilirubin AST Ammonia C-Reactive Protein Total Protein Albumin Triglycerides HDL Cholesterol Lipase TSH Free T4 Urine WBC (Auto) Salicylates Acetaminophen 09/10/18 09/10/18 09/10/18 14:25 15:02 17:48 WBC RBC Hgb Hct MCV RDW Plt Count Lymph % (Auto) Lymph # Seg Neutrophils % Seg Neuts % (Manual) Lymphocytes % (Manual) Seg Neutrophils # Seg Neutrophils # Man Lymphocytes # (Manual) PT INR D-Dimer POC ABG pH POC ABG pCO2 62.6 H POC ABG pO2 Sodium Potassium Chloride Carbon Dioxide BUN Creatinine Glucose POC Glucose 240 H 185 H Lactic Acid Calcium Magnesium Total Bilirubin Direct Bilirubin AST Ammonia C-Reactive Protein Total Protein Albumin Triglycerides HDL Cholesterol Lipase TSH Free T4 Urine WBC (Auto) Salicylates Acetaminophen 09/10/18 09/11/18 09/11/18 23:28 04:25 04:38 WBC RBC Hgb Hct MCV RDW Plt Count Lymph % (Auto) Lymph # Seg Neutrophils % Seg Neuts % (Manual) Lymphocytes % (Manual) Seg Neutrophils # Seg Neutrophils # Man Lymphocytes # (Manual) PT INR D-Dimer POC ABG pH 7.487 H POC ABG pCO2 52.3 H POC ABG pO2 61 L Sodium 146 H Potassium Chloride Carbon Dioxide 37 H BUN 38 H Creatinine Glucose 254 H POC Glucose 132 H Lactic Acid Calcium 10.7 H Magnesium Total Bilirubin Direct Bilirubin AST Ammonia C-Reactive Protein Total Protein Albumin Triglycerides HDL Cholesterol Lipase TSH Free T4 Urine WBC (Auto) Salicylates Acetaminophen 09/11/18 09/11/18 09/11/18 05:09 11:58 17:54 WBC RBC Hgb Hct MCV RDW Plt Count Lymph % (Auto) Lymph # Seg Neutrophils % Seg Neuts % (Manual) Lymphocytes % (Manual) Seg Neutrophils # Seg Neutrophils # Man Lymphocytes # (Manual) PT INR D-Dimer POC ABG pH 7.538 H POC ABG pCO2 50.4 H POC ABG pO2 78 L Sodium Potassium Chloride Carbon Dioxide BUN Creatinine Glucose POC Glucose 190 H 126 H Lactic Acid Calcium Magnesium Total Bilirubin Direct Bilirubin AST Ammonia C-Reactive Protein Total Protein Albumin Triglycerides HDL Cholesterol Lipase TSH Free T4 Urine WBC (Auto) Salicylates Acetaminophen 09/11/18 09/12/18 09/12/18 23:44 05:29 05:36 WBC RBC Hgb Hct MCV RDW Plt Count Lymph % (Auto) Lymph # Seg Neutrophils % Seg Neuts % (Manual) Lymphocytes % (Manual) Seg Neutrophils # Seg Neutrophils # Man Lymphocytes # (Manual) PT INR D-Dimer POC ABG pH 7.534 H POC ABG pCO2 50.4 H POC ABG pO2 Sodium Potassium Chloride Carbon Dioxide BUN Creatinine Glucose POC Glucose 119 H Lactic Acid Calcium Magnesium 2.40 H Total Bilirubin Direct Bilirubin AST Ammonia C-Reactive Protein Total Protein Albumin Triglycerides HDL Cholesterol Lipase TSH Free T4 Urine WBC (Auto) Salicylates Acetaminophen 09/12/18 09/12/18 09/12/18 08:05 08:05 17:10 WBC 11.7 H RBC Hgb Hct MCV RDW Plt Count 124 L Lymph % (Auto) Lymph # Seg Neutrophils % Seg Neuts % (Manual) 89.0 H Lymphocytes % (Manual) 9.0 L Seg Neutrophils # Seg Neutrophils # Man 10.4 H Lymphocytes # (Manual) 1.1 L PT INR D-Dimer POC ABG pH POC ABG pCO2 POC ABG pO2 Sodium Potassium Chloride 97.1 L Carbon Dioxide 38 H BUN 34 H Creatinine 0.7 L Glucose 127 H POC Glucose 134 H Lactic Acid Calcium 10.3 H Magnesium Total Bilirubin Direct Bilirubin AST Ammonia C-Reactive Protein Total Protein Albumin Triglycerides HDL Cholesterol Lipase TSH Free T4 Urine WBC (Auto) Salicylates Acetaminophen 09/13/18 09/13/18 09/13/18 00:09 04:41 04:41 WBC 11.5 H RBC 5.15 H Hgb Hct 47.2 H MCV RDW Plt Count 129 L Lymph % (Auto) Lymph # Seg Neutrophils % Seg Neuts % (Manual) 89.0 H Lymphocytes % (Manual) 5.0 L Seg Neutrophils # Seg Neutrophils # Man 10.2 H Lymphocytes # (Manual) 0.6 L PT INR D-Dimer POC ABG pH POC ABG pCO2 POC ABG pO2 Sodium Potassium Chloride 96.6 L Carbon Dioxide 34 H BUN 38 H Creatinine Glucose 197 H POC Glucose 149 H Lactic Acid Calcium Magnesium Total Bilirubin Direct Bilirubin AST Ammonia C-Reactive Protein Total Protein Albumin Triglycerides HDL Cholesterol Lipase TSH Free T4 Urine WBC (Auto) Salicylates Acetaminophen 09/13/18 09/13/18 05:10 17:16 WBC RBC Hgb Hct MCV RDW Plt Count Lymph % (Auto) Lymph # Seg Neutrophils % Seg Neuts % (Manual) Lymphocytes % (Manual) Seg Neutrophils # Seg Neutrophils # Man Lymphocytes # (Manual) PT INR D-Dimer POC ABG pH POC ABG pCO2 POC ABG pO2 Sodium Potassium Chloride Carbon Dioxide BUN Creatinine Glucose POC Glucose 199 H 220 H Lactic Acid Calcium Magnesium Total Bilirubin Direct Bilirubin AST Ammonia C-Reactive Protein Total Protein Albumin Triglycerides HDL Cholesterol Lipase TSH Free T4 Urine WBC (Auto) Salicylates Acetaminophen Chest x-ray: report reviewed (Unremarkable AP chest.), image reviewed CT scan - chest: report reviewed (No pulonary emboli. emphysema. small right lower lobe infiltrate.), image reviewed Allied health notes reviewed: RT
[2018-09-14] MEDS: D5W 1,000 ML IV SCH ×2 (00:28→23:19)
[2018-09-14] MEDS: HumaLOG SUB-Q SCH ×4 (00:29→18:41)
[2018-09-14] MEDS: DUONEB *Not for PRN Use IH SCH ×4 (02:55→19:25)
[2018-09-14] MEDS: GENTAMICIN 0.3% OPHTH SOLN OU SCH ×6 (03:09→22:20)
[2018-09-14] MEDS: HALDOL IV PRN (05:45)
[2018-09-14] MEDS: PROCTOSOL-HC PR SCH ×3 (06:35→22:15)
--- NOTE | 2018-09-14 07:04 | Progress Note ---
Assessment and Plan - Patient Problems (1) Hypernatremia Current Visit: Yes Status: Acute Plan to address problem: Secondary to free water losses in the setting of decreased PO intake, now resolved. cont free water flushes via NGT (2) Acute renal failure Current Visit: Yes Status: Acute Plan to address problem: Overall renal function stable. Non-oliguric at present time based on I/O. Anaya placed for accurate I/O (3) Encephalopathy Current Visit: Yes Status: Acute Plan to address problem: Management per primary team. He is more awake this am but has had issues with agitation per nursing staff. (4) Hypercalcemia Current Visit: Yes Status: Acute Plan to address problem: due to dehydration, Ca improved on IVF Subjective Date of service: 09/14/18 Principal diagnosis: Ac Hypoxemic Resp failure; AE-COPD; Pneumonia (Aspiration); Ac encephalopat Interval history: Pt awake, alert, with hypoxic respiratory distress last night, placed on BIPAP. Objective - Vital Signs Vital signs: Vital Signs - 12hr 09/13/18 09/13/18 09/13/18 19:32 19:33 19:47 Temperature Pulse Rate Pulse Rate [ 89 91 H Anterior Bilateral Throughout] Pulse Rate [ From Monitor] Respiratory Rate Respiratory 20 20 Rate [Anterior Bilateral Throughout] Blood Pressure O2 Sat by Pulse 94 Oximetry 09/13/18 09/13/18 09/13/18 20:00 21:01 22:00 Temperature 98.2 F Pulse Rate 85 90 83 Pulse Rate [ Anterior Bilateral Throughout] Pulse Rate [ 89 From Monitor] Respiratory 20 18 28 H Rate Respiratory Rate [Anterior Bilateral Throughout] Blood Pressure 99/56 99/56 97/70 O2 Sat by Pulse 95 94 93 Oximetry 09/13/18 09/13/18 09/13/18 23:00 23:16 23:45 Temperature Pulse Rate 86 85 74 Pulse Rate [ Anterior Bilateral Throughout] Pulse Rate [ From Monitor] Respiratory 19 17 16 Rate Respiratory Rate [Anterior Bilateral Throughout] Blood Pressure 150/85 97/70 150/85 O2 Sat by Pulse 92 94 94 Oximetry 09/14/18 09/14/18 09/14/18 00:00 00:03 01:00 Temperature 98.2 F Pulse Rate 73 73 75 Pulse Rate [ Anterior Bilateral Throughout] Pulse Rate [ 77 From Monitor] Respiratory 15 16 16 Rate Respiratory Rate [Anterior Bilateral Throughout] Blood Pressure 101/64 150/85 136/83 O2 Sat by Pulse 96 93 95 Oximetry 09/14/18 09/14/18 09/14/18 02:00 02:55 03:00 Temperature Pulse Rate 77 73 Pulse Rate [ 71 Anterior Bilateral Throughout] Pulse Rate [ From Monitor] Respiratory 20 20 Rate Respiratory 19 Rate [Anterior Bilateral Throughout] Blood Pressure 136/83 104/65 O2 Sat by Pulse 95 93 Oximetry 09/14/18 09/14/18 09/14/18 03:10 04:00 04:32 Temperature 98 F Pulse Rate 71 71 Pulse Rate [ 73 Anterior Bilateral Throughout] Pulse Rate [ 68 From Monitor] Respiratory 16 16 Rate Respiratory 19 Rate [Anterior Bilateral Throughout] Blood Pressure 105/66 105/66 O2 Sat by Pulse 95 94 Oximetry - General Appearance General appearance: well-developed, well-nourished, appears stated age EENT: ATNC, PERRL, mucous membranes moist, other (on BIPAP ) Neck: no JVD Respiratory: Present: Decreased Breath Sounds Cardiology: regular, S1S2 Gastrointestinal: normoactive bowel sounds Integumentary: no rash, other (no edema ) Neurologic: no focal deficit, alert and oriented x3, strength 5/5, CN 3-12 intac t Psychiatric: mood/affect appropriate, cooperative - Lab 09/13/18 04:41 09/13/18 04:41 Most recent lab results Calcium 10.1 mg/dL (8.4-10.2) 09/13/18 04:41 Magnesium 2.40 mg/dL (1.7-2.3) H 09/11/18 23:44 Medications & Allergies - Medications Allergies/Adverse Reactions: Allergies No Known Allergies Allergy (Verified 09/02/18 13:48) Home Medications: Home Medications Medication Instructions Recorded Confirmed Last Taken Type Hydrochlorothiazide 25 mg PO DAILY 09/07/18 09/07/18 Unknown History Lisinopril 5 mg PO DAILY 09/07/18 09/07/18 Unknown History Rosuvastatin Calcium 40 mg PO DAILY 09/07/18 09/07/18 Unknown History Tamsulosin 0.4 mg PO DAILY 09/07/18 09/07/18 Unknown History metFORMIN 500 mg PO BID 09/07/18 09/07/18 Unknown History Active Medications: Generic Name Dose Route Start Last Admin Trade Name Freq PRN Reason Stop Dose Admin Acetaminophen 650 mg 09/02/18 15:03 Tylenol PO Q4H PRN Pain, Mild (1-3) Albuterol 2.5 mg 09/06/18 17:35 09/11/18 13:11 Proventil IH 2.5 mg Q4HRT PRN Administration Shortness Of Breath Albuterol/Ipratropium 1 ampul 09/06/18 17:35 09/14/18 02:55 Duoneb *Not For Prn Use* IH 1 ampul Q6HRT ROXY Administration Arformoterol Tartrate 15 mcg 09/06/18 20:45 09/13/18 19:32 Brovana Nebu IH 15 mcg Q12HRT ROXY Administration Atorvastatin Calcium 40 mg 09/02/18 22:00 09/13/18 21:05 Lipitor PO 40 mg QHS ROXY Administration Bisacodyl 10 mg 09/02/18 15:03 Dulcolax [place] QDAY PRN Constipation Budesonide 0.5 mg 09/07/18 08:00 09/13/18 19:32 Pulmicort IH 0.5 mg Q12HRT ROXY Administration Bupropion HCl 150 mg 09/11/18 10:00 09/13/18 21:05 Wellbutrin PO 150 mg BID ROXY Administration Dextrose 50 ml 09/08/18 10:58 D50w (25gm) Syringe IV PRN PRN Hypoglycemia Docusate Sodium 100 mg 09/10/18 12:00 09/13/18 21:06 Colace FEEDTUBE 100 mg BID ROXY Administration Enoxaparin Sodium 40 mg 09/08/18 15:00 09/13/18 10:08 Lovenox SUB-Q 40 mg QDAY@1000 ROXY Administration Gentamicin Sulfate 1 drops 09/12/18 14:00 09/14/18 05:58 Gentamicin 0.3% Ophth Soln OU 09/16/18 13:59 Not Given Q4HR ROXY Haloperidol Lactate 5 mg 09/09/18 14:18 09/14/18 05:45 Haldol IV 5 mg Q6H PRN Administration Agitation Hydrochlorothiazide 25 mg 09/12/18 14:30 09/13/18 10:08 Hctz PO 25 mg QDAY ROXY Administration Hydrocortisone Acetate 1 applic 09/04/18 16:00 09/14/18 06:35 Proctosol-Hc IL Not Given Q8HR ROXY Hydrophilic Ointment 1 applic 09/06/18 15:34 Vaseline Lip Therapy TP Q2H PRN Dry Lips Dextrose 1,000 mls @ 100 mls/hr 09/09/18 07:00 09/14/18 00:28 D5w IV 100 mls/hr DIRECT ROXY Administration Insulin Glargine 10 units 09/09/18 22:00 09/13/18 21:09 Lantus SUB-Q 10 units QHS ROXY Administration Insulin Human Lispro 0 unit 09/08/18 12:00 09/14/18 06:22 Humalog SUB-Q 3 unit Q6HR ROXY Administration Protocol Lactulose 20 gm 09/08/18 18:29 Cephulac PO Q6HR PRN Delerium Lactulose 20 gm 09/12/18 11:00 09/13/18 21:05 Cephulac PO 20 gm QHS ROXY Administration Lansoprazole 30 mg 09/08/18 10:00 09/13/18 10:09 Prevacid Solutab FEEDTUBE 30 mg QDAY [facility] Administration Magnesium Hydroxide 30 ml 09/02/18 15:03 Milk Of Magnesia PO Q4H PRN Constipation Methylprednisolone Sodium Succinate 40 mg 09/14/18 10:00 Solu-Medrol IV 09/14/18 10:01 DAILY ROXY Metoclopramide HCl 10 mg 09/02/18 15:03 Reglan PO Q6H PRN Nausea And Vomiting Multi-Ingred Cream/Lotion/Oil/Oint 1 applic 09/06/18 15:34 Artificial Tears Ophth Oint OU Q4H PRN Dry Eye(s) Ondansetron HCl 4 mg 09/02/18 15:03 Zofran IV Q8H PRN Nausea And Vomiting Prednisone 10 mg 09/15/18 10:00 Deltasone PO QDAY [facility] Promethazine HCl 25 mg 09/02/18 15:03 Phenergan [place] Q6H PRN Nausea And Vomiting Sodium Chloride 10 ml 09/02/18 15:03 Sodium Chloride Flush Syringe 10 Ml IV PRN PRN LINE FLUSH Tamsulosin HCl 0.4 mg 09/07/18 15:00 09/13/18 10:07 Flomax PO 0.4 mg QDAY ROXY Administration
[2018-09-14] MEDS: BROVANA NEBU IH SCH ×2 (08:20→19:25)
[2018-09-14] MEDS: PULMICORT IH SCH ×2 (08:20→19:25)
--- NOTE | 2018-09-14 09:19 | Progress Note ---
Subjective Date of service: 09/14/18 Principal diagnosis: Ac Hypoxemic Resp failure; AE-COPD; Pneumonia (Aspiration); Ac encephalopat Interval history: see the prior note and the metabolic state reviewed the encephalopathy is better at this point spoke to family advised he stop alcohol due to LFT dysfunction Objective - Vital Sign Vital Signs - 12hr 09/13/18 09/13/18 09/13/18 22:00 23:00 23:16 Temperature Pulse Rate 83 86 85 Pulse Rate [ Anterior Bilateral Throughout] Pulse Rate [ From Monitor] Respiratory 28 H 19 17 Rate Respiratory Rate [Anterior Bilateral Throughout] Blood Pressure 97/70 150/85 97/70 O2 Sat by Pulse 93 92 94 Oximetry 09/13/18 09/14/18 09/14/18 23:45 00:00 00:03 Temperature 98.2 F Pulse Rate 74 73 73 Pulse Rate [ Anterior Bilateral Throughout] Pulse Rate [ 77 From Monitor] Respiratory 16 15 16 Rate Respiratory Rate [Anterior Bilateral Throughout] Blood Pressure 150/85 101/64 150/85 O2 Sat by Pulse 94 96 93 Oximetry 09/14/18 09/14/18 09/14/18 01:00 02:00 02:55 Temperature Pulse Rate 75 77 Pulse Rate [ 71 Anterior Bilateral Throughout] Pulse Rate [ From Monitor] Respiratory 16 20 Rate Respiratory 19 Rate [Anterior Bilateral Throughout] Blood Pressure 136/83 136/83 O2 Sat by Pulse 95 95 Oximetry 09/14/18 09/14/18 09/14/18 03:00 03:10 04:00 Temperature 98 F Pulse Rate 73 71 Pulse Rate [ 73 Anterior Bilateral Throughout] Pulse Rate [ 68 From Monitor] Respiratory 20 16 Rate Respiratory 19 Rate [Anterior Bilateral Throughout] Blood Pressure 104/65 105/66 O2 Sat by Pulse 93 95 Oximetry 09/14/18 09/14/18 09/14/18 04:32 05:00 06:00 Temperature Pulse Rate 71 68 81 Pulse Rate [ Anterior Bilateral Throughout] Pulse Rate [ From Monitor] Respiratory 16 11 L 18 Rate Respiratory Rate [Anterior Bilateral Throughout] Blood Pressure 105/66 116/73 116/73 O2 Sat by Pulse 94 96 93 Oximetry 09/14/18 09/14/18 07:00 08:00 Temperature 98.5 F 98.5 F Pulse Rate Pulse Rate [ Anterior Bilateral Throughout] Pulse Rate [ 85 From Monitor] Respiratory 35 H 24 Rate Respiratory Rate [Anterior Bilateral Throughout] Blood Pressure 103/65 O2 Sat by Pulse 96 96 Oximetry - Laboratory Findings CBC and BMP: 09/13/18 04:41 09/13/18 04:41 Abnormal Lab Findings: Abnormal Labs 09/02/18 09/02/18 09/02/18 12:35 12:35 12:35 WBC RBC 6.15 H Hgb 18.7 H Hct 57.7 H MCV RDW 15.5 H Plt Count Lymph % (Auto) 8.8 L Lymph # 0.9 L Seg Neutrophils % 83.2 H Seg Neuts % (Manual) Lymphocytes % (Manual) Seg Neutrophils # 8.9 H Seg Neutrophils # Man Lymphocytes # (Manual) PT 20.8 H INR 1.74 H D-Dimer 4180.35 H POC ABG pH POC ABG pCO2 POC ABG pO2 Sodium Potassium Chloride Carbon Dioxide BUN Creatinine Glucose POC Glucose Lactic Acid Calcium Magnesium Total Bilirubin Direct Bilirubin AST Ammonia C-Reactive Protein Total Protein Albumin Triglycerides HDL Cholesterol Lipase TSH Free T4 Urine WBC (Auto) Salicylates < 0.3 L Acetaminophen 09/02/18 09/02/18 09/02/18 12:35 12:35 12:35 WBC RBC Hgb Hct MCV RDW Plt Count Lymph % (Auto) Lymph # Seg Neutrophils % Seg Neuts % (Manual) Lymphocytes % (Manual) Seg Neutrophils # Seg Neutrophils # Man Lymphocytes # (Manual) PT INR D-Dimer POC ABG pH POC ABG pCO2 POC ABG pO2 Sodium Potassium Chloride Carbon Dioxide BUN Creatinine Glucose POC Glucose 167 H Lactic Acid 3.20 H* Calcium Magnesium Total Bilirubin Direct Bilirubin AST Ammonia C-Reactive Protein Total Protein Albumin Triglycerides HDL Cholesterol Lipase TSH Free T4 Urine WBC (Auto) Salicylates Acetaminophen < 5.0 L 09/02/18 09/02/18 09/02/18 13:36 14:40 16:45 WBC RBC Hgb Hct MCV RDW Plt Count Lymph % (Auto) Lymph # Seg Neutrophils % Seg Neuts % (Manual) Lymphocytes % (Manual) Seg Neutrophils # Seg Neutrophils # Man Lymphocytes # (Manual) PT INR D-Dimer POC ABG pH POC ABG pCO2 POC ABG pO2 Sodium 159 H Potassium Chloride 114.7 H Carbon Dioxide BUN 90 H Creatinine Glucose 172 H POC Glucose Lactic Acid 2.30 H* Calcium 10.8 H Magnesium Total Bilirubin Direct Bilirubin 0.3 H AST Ammonia C-Reactive Protein Total Protein Albumin 2.6 L Triglycerides HDL Cholesterol Lipase 81 H TSH < 0.005 L Free T4 2.40 H Urine WBC (Auto) Salicylates Acetaminophen 09/03/18 09/03/18 09/03/18 11:26 11:26 11:26 WBC RBC Hgb Hct MCV RDW Plt Count Lymph % (Auto) Lymph # Seg Neutrophils % Seg Neuts % (Manual) Lymphocytes % (Manual) Seg Neutrophils # Seg Neutrophils # Man Lymphocytes # (Manual) PT 21.8 H INR 1.86 H D-Dimer POC ABG pH POC ABG pCO2 POC ABG pO2 Sodium 160 H Potassium Chloride 122.6 H Carbon Dioxide BUN 69 H Creatinine Glucose 127 H POC Glucose Lactic Acid Calcium Magnesium Total Bilirubin Direct Bilirubin AST Ammonia C-Reactive Protein Total Protein Albumin 2.1 L Triglycerides HDL Cholesterol Lipase TSH Free T4 Urine WBC (Auto) Salicylates Acetaminophen 09/03/18 09/03/18 09/03/18 11:26 15:39 20:23 WBC RBC Hgb Hct MCV RDW Plt Count Lymph % (Auto) Lymph # Seg Neutrophils % Seg Neuts % (Manual) Lymphocytes % (Manual) Seg Neutrophils # Seg Neutrophils # Man Lymphocytes # (Manual) PT INR D-Dimer POC ABG pH POC ABG pCO2 POC ABG pO2 Sodium 160 H 160 H Potassium Chloride Carbon Dioxide BUN Creatinine Glucose POC Glucose Lactic Acid Calcium Magnesium Total Bilirubin Direct Bilirubin AST Ammonia 75.0 H C-Reactive Protein Total Protein Albumin Triglycerides HDL Cholesterol Lipase TSH Free T4 Urine WBC (Auto) Salicylates Acetaminophen 09/03/18 09/04/18 09/04/18 Unknown 02:38 05:20 WBC RBC Hgb Hct MCV RDW Plt Count Lymph % (Auto) Lymph # Seg Neutrophils % Seg Neuts % (Manual) Lymphocytes % (Manual) Seg Neutrophils # Seg Neutrophils # Man Lymphocytes # (Manual) PT INR D-Dimer POC ABG pH POC ABG pCO2 POC ABG pO2 Sodium 160 H 166 H* Potassium Chloride 129.2 H Carbon Dioxide BUN 57 H Creatinine Glucose 137 H POC Glucose Lactic Acid Calcium Magnesium Total Bilirubin Direct Bilirubin AST Ammonia C-Reactive Protein Total Protein 5.8 L Albumin 2.7 L Triglycerides 150 H HDL Cholesterol 21 L Lipase TSH Free T4 Urine WBC (Auto) Salicylates Acetaminophen 09/04/18 09/04/18 09/04/18 05:20 09:11 13:35 WBC RBC 5.12 H Hgb 15.5 H D 15.6 H Hct 48.0 H D 48.1 H MCV RDW 15.9 H Plt Count Lymph % (Auto) 11.8 L Lymph # 0.8 L Seg Neutrophils % 80.1 H Seg Neuts % (Manual) Lymphocytes % (Manual) Seg Neutrophils # Seg Neutrophils # Man Lymphocytes # (Manual) PT INR D-Dimer POC ABG pH POC ABG pCO2 POC ABG pO2 Sodium 166 H* Potassium Chloride Carbon Dioxide BUN Creatinine Glucose POC Glucose Lactic Acid Calcium Magnesium Total Bilirubin Direct Bilirubin AST Ammonia C-Reactive Protein Total Protein Albumin Triglycerides HDL Cholesterol Lipase TSH Free T4 Urine WBC (Auto) Salicylates Acetaminophen 09/04/18 09/04/18 09/04/18 13:35 21:04 21:04 WBC RBC Hgb 16.9 H Hct 58.3 H D MCV RDW Plt Count Lymph % (Auto) Lymph # Seg Neutrophils % Seg Neuts % (Manual) Lymphocytes % (Manual) Seg Neutrophils # Seg Neutrophils # Man Lymphocytes # (Manual) PT INR D-Dimer POC ABG pH POC ABG pCO2 POC ABG pO2 Sodium 164 H* 159 H Potassium Chloride Carbon Dioxide BUN Creatinine Glucose POC Glucose Lactic Acid Calcium Magnesium Total Bilirubin Direct Bilirubin AST Ammonia C-Reactive Protein Total Protein Albumin Triglycerides HDL Cholesterol Lipase TSH Free T4 Urine WBC (Auto) Salicylates Acetaminophen 09/05/18 09/05/18 09/05/18 01:11 02:51 03:17 WBC RBC Hgb Hct MCV RDW Plt Count Lymph % (Auto) Lymph # Seg Neutrophils % Seg Neuts % (Manual) Lymphocytes % (Manual) Seg Neutrophils # Seg Neutrophils # Man Lymphocytes # (Manual) PT INR D-Dimer POC ABG pH 7.340 L POC ABG pCO2 57.8 H POC ABG pO2 74 L Sodium 152 H Potassium Chloride Carbon Dioxide BUN Creatinine Glucose POC Glucose 116 H Lactic Acid Calcium Magnesium Total Bilirubin Direct Bilirubin AST Ammonia C-Reactive Protein Total Protein Albumin Triglycerides HDL Cholesterol Lipase TSH Free T4 Urine WBC (Auto) Salicylates Acetaminophen 09/05/18 09/05/18 09/05/18 07:45 10:34 15:21 WBC RBC Hgb Hct MCV RDW Plt Count Lymph % (Auto) Lymph # Seg Neutrophils % Seg Neuts % (Manual) Lymphocytes % (Manual) Seg Neutrophils # Seg Neutrophils # Man Lymphocytes # (Manual) PT INR D-Dimer POC ABG pH POC ABG pCO2 POC ABG pO2 Sodium 156 H 153 H Potassium Chloride Carbon Dioxide BUN Creatinine Glucose POC Glucose Lactic Acid Calcium Magnesium Total Bilirubin Direct Bilirubin AST Ammonia 61.0 H C-Reactive Protein Total Protein Albumin Triglycerides HDL Cholesterol Lipase TSH Free T4 Urine WBC (Auto) Salicylates Acetaminophen 09/06/18 09/06/18 09/06/18 05:10 05:10 08:43 WBC RBC 5.06 H Hgb Hct 47.8 H D MCV RDW 15.3 H Plt Count Lymph % (Auto) Lymph # Seg Neutrophils % Seg Neuts % (Manual) Lymphocytes % (Manual) Seg Neutrophils # Seg Neutrophils # Man Lymphocytes # (Manual) PT INR D-Dimer POC ABG pH POC ABG pCO2 POC ABG pO2 Sodium 155 H 150 H Potassium Chloride 117.0 H Carbon Dioxide BUN 36 H Creatinine Glucose 143 H POC Glucose Lactic Acid Calcium Magnesium Total Bilirubin Direct Bilirubin AST Ammonia C-Reactive Protein Total Protein Albumin Triglycerides HDL Cholesterol Lipase TSH Free T4 Urine WBC (Auto) Salicylates Acetaminophen 09/06/18 09/06/18 09/06/18 13:21 15:11 16:23 WBC RBC Hgb Hct MCV RDW Plt Count Lymph % (Auto) Lymph # Seg Neutrophils % Seg Neuts % (Manual) Lymphocytes % (Manual) Seg Neutrophils # Seg Neutrophils # Man Lymphocytes # (Manual) PT INR D-Dimer POC ABG pH POC ABG pCO2 49.1 H POC ABG pO2 107 H Sodium 151 H Potassium Chloride Carbon Dioxide BUN Creatinine Glucose POC Glucose 120 H Lactic Acid Calcium Magnesium Total Bilirubin Direct Bilirubin AST Ammonia C-Reactive Protein Total Protein Albumin Triglycerides HDL Cholesterol Lipase TSH Free T4 Urine WBC (Auto) Salicylates Acetaminophen 09/06/18 09/07/18 09/07/18 21:58 00:25 02:49 WBC RBC 5.32 H Hgb 16.1 H Hct 50.2 H MCV 95 H RDW 15.6 H Plt Count Lymph % (Auto) Lymph # Seg Neutrophils % Seg Neuts % (Manual) Lymphocytes % (Manual) Seg Neutrophils # Seg Neutrophils # Man Lymphocytes # (Manual) PT INR D-Dimer POC ABG pH POC ABG pCO2 POC ABG pO2 Sodium 150 H Potassium Chloride Carbon Dioxide BUN Creatinine Glucose POC Glucose Lactic Acid Calcium Magnesium Total Bilirubin Direct Bilirubin AST Ammonia C-Reactive Protein 9.00 H Total Protein Albumin Triglycerides HDL Cholesterol Lipase TSH Free T4 Urine WBC (Auto) Salicylates Acetaminophen 09/07/18 09/07/1809/07/19 02:49 03:43 09:17 WBC RBC Hgb Hct MCV RDW Plt Count Lymph % (Auto) Lymph # Seg Neutrophils % Seg Neuts % (Manual) Lymphocytes % (Manual) Seg Neutrophils # Seg Neutrophils # Man Lymphocytes # (Manual) PT INR D-Dimer POC ABG pH POC ABG pCO2 46.5 H POC ABG pO2 Sodium 149 H 155 H Potassium 5.2 H D Chloride 116.1 H Carbon Dioxide 21 L BUN 47 H Creatinine Glucose 122 H POC Glucose Lactic Acid Calcium Magnesium Total Bilirubin 1.80 H Direct Bilirubin AST 83 H Ammonia C-Reactive Protein Total Protein Albumin 1.8 L Triglycerides HDL Cholesterol Lipase TSH Free T4 Urine WBC (Auto) Salicylates Acetaminophen 09/07/18 09/08/18 09/08/18 16:02 00:14 00:51 WBC RBC Hgb Hct MCV RDW Plt Count Lymph % (Auto) Lymph # Seg Neutrophils % Seg Neuts % (Manual) Lymphocytes % (Manual) Seg Neutrophils # Seg Neutrophils # Man Lymphocytes # (Manual) PT INR D-Dimer POC ABG pH POC ABG pCO2 POC ABG pO2 Sodium 156 H 154 H Potassium Chloride Carbon Dioxide BUN Creatinine Glucose POC Glucose Lactic Acid Calcium Magnesium Total Bilirubin Direct Bilirubin AST Ammonia C-Reactive Protein Total Protein Albumin Triglycerides HDL Cholesterol Lipase TSH Free T4 Urine WBC (Auto) 41.0 H Salicylates Acetaminophen 09/08/18 09/08/18 09/08/18 04:22 04:22 04:46 WBC RBC Hgb Hct MCV 95 H RDW 15.3 H Plt Count Lymph % (Auto) Lymph # Seg Neutrophils % Seg Neuts % (Manual) Lymphocytes % (Manual) Seg Neutrophils # Seg Neutrophils # Man Lymphocytes # (Manual) PT INR D-Dimer POC ABG pH POC ABG pCO2 55.3 H POC ABG pO2 77 L Sodium 153 H Potassium 3.5 L D Chloride 114.8 H Carbon Dioxide BUN 69 H Creatinine Glucose 277 H POC Glucose Lactic Acid Calcium Magnesium Total Bilirubin Direct Bilirubin AST 44 H Ammonia C-Reactive Protein Total Protein 5.6 L Albumin 2.4 L Triglycerides HDL Cholesterol Lipase TSH Free T4 Urine WBC (Auto) Salicylates Acetaminophen 09/08/18 09/08/18 09/08/18 08:40 12:03 15:43 WBC RBC Hgb Hct MCV RDW Plt Count Lymph % (Auto) Lymph # Seg Neutrophils % Seg Neuts % (Manual) Lymphocytes % (Manual) Seg Neutrophils # Seg Neutrophils # Man Lymphocytes # (Manual) PT INR D-Dimer POC ABG pH POC ABG pCO2 POC ABG pO2 Sodium 154 H 152 H Potassium Chloride Carbon Dioxide BUN Creatinine Glucose POC Glucose 186 H Lactic Acid Calcium Magnesium Total Bilirubin Direct Bilirubin AST Ammonia C-Reactive Protein Total Protein Albumin Triglycerides HDL Cholesterol Lipase TSH Free T4 Urine WBC (Auto) Salicylates Acetaminophen 09/08/18 09/08/18 09/09/18 17:57 23:54 04:01 WBC RBC Hgb Hct MCV 95 H RDW 15.3 H Plt Count 130 L Lymph % (Auto) Lymph # Seg Neutrophils % Seg Neuts % (Manual) Lymphocytes % (Manual) Seg Neutrophils # Seg Neutrophils # Man Lymphocytes # (Manual) PT INR D-Dimer POC ABG pH POC ABG pCO2 POC ABG pO2 Sodium Potassium Chloride Carbon Dioxide BUN Creatinine Glucose POC Glucose 252 H 297 H Lactic Acid Calcium Magnesium Total Bilirubin Direct Bilirubin AST Ammonia C-Reactive Protein Total Protein Albumin Triglycerides HDL Cholesterol Lipase TSH Free T4 Urine WBC (Auto) Salicylates Acetaminophen 09/09/18 09/09/18 09/09/18 04:01 04:33 05:32 WBC RBC Hgb Hct MCV RDW Plt Count Lymph % (Auto) Lymph # Seg Neutrophils % Seg Neuts % (Manual) Lymphocytes % (Manual) Seg Neutrophils # Seg Neutrophils # Man Lymphocytes # (Manual) PT INR D-Dimer POC ABG pH 7.267 L POC ABG pCO2 76.6 H POC ABG pO2 69 L Sodium 150 H Potassium Chloride 110.9 H Carbon Dioxide 32 H BUN 62 H Creatinine Glucose 220 H POC Glucose 196 H Lactic Acid Calcium 10.3 H Magnesium Total Bilirubin Direct Bilirubin AST Ammonia C-Reactive Protein Total Protein Albumin Triglycerides HDL Cholesterol Lipase TSH Free T4 Urine WBC (Auto) Salicylates Acetaminophen 09/09/18 09/09/18 09/09/18 11:40 17:57 23:36 WBC RBC Hgb Hct MCV RDW Plt Count Lymph % (Auto) Lymph # Seg Neutrophils % Seg Neuts % (Manual) Lymphocytes % (Manual) Seg Neutrophils # Seg Neutrophils # Man Lymphocytes # (Manual) PT INR D-Dimer POC ABG pH POC ABG pCO2 POC ABG pO2 Sodium Potassium Chloride Carbon Dioxide BUN Creatinine Glucose POC Glucose 217 H 172 H 131 H Lactic Acid Calcium Magnesium Total Bilirubin Direct Bilirubin AST Ammonia C-Reactive Protein Total Protein Albumin Triglycerides HDL Cholesterol Lipase TSH Free T4 Urine WBC (Auto) Salicylates Acetaminophen 09/10/18 09/10/18 09/10/18 05:07 05:07 05:51 WBC RBC Hgb Hct MCV RDW Plt Count 115 L Lymph % (Auto) Lymph # Seg Neutrophils % Seg Neuts % (Manual) 95.0 H Lymphocytes % (Manual) 3.0 L Seg Neutrophils # Seg Neutrophils # Man Lymphocytes # (Manual) 0.2 L PT INR D-Dimer POC ABG pH POC ABG pCO2 POC ABG pO2 Sodium 146 H Potassium Chloride Carbon Dioxide 33 H BUN 46 H Creatinine 0.7 L Glucose 174 H POC Glucose 169 H Lactic Acid Calcium 10.3 H Magnesium Total Bilirubin Direct Bilirubin AST Ammonia C-Reactive Protein Total Protein Albumin Triglycerides HDL Cholesterol Lipase TSH Free T4 Urine WBC (Auto) Salicylates Acetaminophen 09/10/18 09/10/18 09/10/18 14:25 15:02 17:48 WBC RBC Hgb Hct MCV RDW Plt Count Lymph % (Auto) Lymph # Seg Neutrophils % Seg Neuts % (Manual) Lymphocytes % (Manual) Seg Neutrophils # Seg Neutrophils # Man Lymphocytes # (Manual) PT INR D-Dimer POC ABG pH POC ABG pCO2 62.6 H POC ABG pO2 Sodium Potassium Chloride Carbon Dioxide BUN Creatinine Glucose POC Glucose 240 H 185 H Lactic Acid Calcium Magnesium Total Bilirubin Direct Bilirubin AST Ammonia C-Reactive Protein Total Protein Albumin Triglycerides HDL Cholesterol Lipase TSH Free T4 Urine WBC (Auto) Salicylates Acetaminophen 09/10/18 09/11/18 09/11/18 23:28 04:25 04:38 WBC RBC Hgb Hct MCV RDW Plt Count Lymph % (Auto) Lymph # Seg Neutrophils % Seg Neuts % (Manual) Lymphocytes % (Manual) Seg Neutrophils # Seg Neutrophils # Man Lymphocytes # (Manual) PT INR D-Dimer POC ABG pH 7.487 H POC ABG pCO2 52.3 H POC ABG pO2 61 L Sodium 146 H Potassium Chloride Carbon Dioxide 37 H BUN 38 H Creatinine Glucose 254 H POC Glucose 132 H Lactic Acid Calcium 10.7 H Magnesium Total Bilirubin Direct Bilirubin AST Ammonia C-Reactive Protein Total Protein Albumin Triglycerides HDL Cholesterol Lipase TSH Free T4 Urine WBC (Auto) Salicylates Acetaminophen 09/11/18 09/11/18 09/11/18 05:09 11:58 17:54 WBC RBC Hgb Hct MCV RDW Plt Count Lymph % (Auto) Lymph # Seg Neutrophils % Seg Neuts % (Manual) Lymphocytes % (Manual) Seg Neutrophils # Seg Neutrophils # Man Lymphocytes # (Manual) PT INR D-Dimer POC ABG pH 7.538 H POC ABG pCO2 50.4 H POC ABG pO2 78 L Sodium Potassium Chloride Carbon Dioxide BUN Creatinine Glucose POC Glucose 190 H 126 H Lactic Acid Calcium Magnesium Total Bilirubin Direct Bilirubin AST Ammonia C-Reactive Protein Total Protein Albumin Triglycerides HDL Cholesterol Lipase TSH Free T4 Urine WBC (Auto) Salicylates Acetaminophen 09/11/18 09/12/18 09/12/18 23:44 05:29 05:36 WBC RBC Hgb Hct MCV RDW Plt Count Lymph % (Auto) Lymph # Seg Neutrophils % Seg Neuts % (Manual) Lymphocytes % (Manual) Seg Neutrophils # Seg Neutrophils # Man Lymphocytes # (Manual) PT INR D-Dimer POC ABG pH 7.534 H POC ABG pCO2 50.4 H POC ABG pO2 Sodium Potassium Chloride Carbon Dioxide BUN Creatinine Glucose POC Glucose 119 H Lactic Acid Calcium Magnesium 2.40 H Total Bilirubin Direct Bilirubin AST Ammonia C-Reactive Protein Total Protein Albumin Triglycerides HDL Cholesterol Lipase TSH Free T4 Urine WBC (Auto) Salicylates Acetaminophen 09/12/18 09/12/18 09/12/18 08:05 08:05 17:10 WBC 11.7 H RBC Hgb Hct MCV RDW Plt Count 124 L Lymph % (Auto) Lymph # Seg Neutrophils % Seg Neuts % (Manual) 89.0 H Lymphocytes % (Manual) 9.0 L Seg Neutrophils # Seg Neutrophils # Man 10.4 H Lymphocytes # (Manual) 1.1 L PT INR D-Dimer POC ABG pH POC ABG pCO2 POC ABG pO2 Sodium Potassium Chloride 97.1 L Carbon Dioxide 38 H BUN 34 H Creatinine 0.7 L Glucose 127 H POC Glucose 134 H Lactic Acid Calcium 10.3 H Magnesium Total Bilirubin Direct Bilirubin AST Ammonia C-Reactive Protein Total Protein Albumin Triglycerides HDL Cholesterol Lipase TSH Free T4 Urine WBC (Auto) Salicylates Acetaminophen 09/13/18 09/13/18 09/13/18 00:09 04:41 04:41 WBC 11.5 H RBC 5.15 H Hgb Hct 47.2 H MCV RDW Plt Count 129 L Lymph % (Auto) Lymph # Seg Neutrophils % Seg Neuts % (Manual) 89.0 H Lymphocytes % (Manual) 5.0 L Seg Neutrophils # Seg Neutrophils # Man 10.2 H Lymphocytes # (Manual) 0.6 L PT INR D-Dimer POC ABG pH POC ABG pCO2 POC ABG pO2 Sodium Potassium Chloride 96.6 L Carbon Dioxide 34 H BUN 38 H Creatinine Glucose 197 H POC Glucose 149 H Lactic Acid Calcium Magnesium Total Bilirubin Direct Bilirubin AST Ammonia C-Reactive Protein Total Protein Albumin Triglycerides HDL Cholesterol Lipase TSH Free T4 Urine WBC (Auto) Salicylates Acetaminophen 09/13/18 09/13/18 09/14/18 05:10 17:16 05:51 WBC RBC Hgb Hct MCV RDW Plt Count Lymph % (Auto) Lymph # Seg Neutrophils % Seg Neuts % (Manual) Lymphocytes % (Manual) Seg Neutrophils # Seg Neutrophils # Man Lymphocytes # (Manual) PT INR D-Dimer POC ABG pH POC ABG pCO2 POC ABG pO2 Sodium Potassium Chloride Carbon Dioxide BUN Creatinine Glucose POC Glucose 199 H 220 H 204 H Lactic Acid Calcium Magnesium Total Bilirubin Direct Bilirubin AST Ammonia C-Reactive Protein Total Protein Albumin Triglycerides HDL Cholesterol Lipase TSH Free T4 Urine WBC (Auto) Salicylates Acetaminophen
[2018-09-14] MEDS ORDERED: SOLU-Medrol IV SCH (10:00)
[2018-09-14] MEDS: PREVACID SOLUTAB FEEDTUBE SCH (10:22)
[2018-09-14] MEDS: WELLBUTRIN PO SCH ×2 (10:22→23:20)
[2018-09-14] MEDS: FLOMAX PO SCH (10:23)
[2018-09-14] MEDS: HCTZ PO SCH (10:23)
[2018-09-14] MEDS: COLACE FEEDTUBE SCH ×2 (10:23→23:18)
[2018-09-14] MEDS: LOVENOX SUB-Q SCH (10:24)
--- NOTE | 2018-09-14 12:11 | Progress Note ---
Assessment and Plan 68 YO Male with Obesity Hypoventilation, COPD presents to ED for evaluation. Pt is confused, lethargic and unable to provide history. Pt history provided by his brother who is at bedside during exam and interview. As per brother, the patient has not returned phone calls over the past 4 days. As a result, the brother went to the home but the patient did not answer the door. Law Enforcement notified, and entry into the home was obtained. The patient was found down and covered in his own feces. Pt exhibited slurred speech, confusion. EMS notified and upon arrival, the patient was found to have a neurologic deficit. A code stroke was called, and the patient was transported to [facility]. Pt seen and evaluated in ED and found to have evidence of CVA as well as SIRS, Acidosis, and Encephalopathy. Pt admitted to telemetry and initiated on CVA protocol. He was intubated with concern for aspiration. Neurology consulted. Acute Metabolic encephalopathy - Likely from hypercapnia - CT, MRI head negative for CVA Delirium - Supportive care - patient is on restraints Acute Hypoxic Respiratory failure, COPD exacerbation - Patient extubated on 09/11 -Bronchodilators - Currently on intermittent oxygen - Cont IV Solu-Medrol - Wean off BiPAP as tolerated Rectal Bleed - Evaluated by GI and they decreased his due to hemorrhoid - H&H stable Aspiration Pneumonia - Patient is treated with IV antibiotics, will finish antibiotic today - CTA showed right lower lobe pneumonia, no PE Obesity Hypoventilation syndrome - Oxygen support ETOH use disorder HYPOTHYRODISIM - On Synthroid Moderate Protien calorie Malnutrition - We'll consult nutrition when stable Secondary Coagulopathy ?UNDERLYING LIVER DISEASE VS IATROGENIC MEDICATION - Supportive care Sepsis - Resolved Tobacco use disorder per hx; counsell when stable Patient is on Anaya's cath is placed by urology. Diabetes mellitus Get A1c, lipid panel - on basal and sliding scale insulin - Consistent CHO diet DVT and GI PPx With Lovenox and Pepcid Disposition: Per clinical course Subjective Date of service: 09/14/18 Principal diagnosis: Ac Hypoxemic Resp failure; AE-COPD; Pneumonia (Aspiration); Ac encephalopat Interval history: still has shortness of breath. Denies any chest pain. no fever Objective - Exam Narrative Exam: Constitutional: Well-nourished well-developed. On BiPAP In no distress Head: Normocephalic atraumatic Eyes: Pupils are equal round and reactive to light Nose: No enlarged turbinates, no septal deviation. Mouth: Moist mucous membranes. Neck: Supple no thyromegaly. No bruit. No JVD Heart: Regular rate and rhythm, S1-S2 normal. No rubs murmurs or gallop Lungs: Decreased breath sounds bilaterally with rhonchi Abdomen: Soft, nontender. Bowel sound are present. Extremities: No edema, no cyanosis, no clubbing. Neuro: Alert oriented Oriented x3. No focal sensory or motor deficit. Skin: No rashes or hyperpigmented spots Musculoskeletal system: No joint pain or swelling Hematological: No petechia or subcutanous hemorrhages. Immunological: No multiple septic spots on the skin Lymphatic: No generalized lymphadenopathy Psychiatry: Euthymic. Calm. - Constitutional Vitals: Vital Signs - 12hr 09/14/18 09/14/18 09/14/18 01:00 02:00 02:55 Temperature Pulse Rate 75 77 Pulse Rate [ 71 Anterior Bilateral Throughout] Pulse Rate [ From Monitor] Respiratory 16 20 Rate Respiratory 19 Rate [Anterior Bilateral Throughout] Blood Pressure 136/83 136/83 O2 Sat by Pulse 95 95 Oximetry 09/14/18 09/14/18 09/14/18 03:00 03:10 04:00 Temperature 98 F Pulse Rate 73 71 Pulse Rate [ 73 Anterior Bilateral Throughout] Pulse Rate [ 68 From Monitor] Respiratory 20 16 Rate Respiratory 19 Rate [Anterior Bilateral Throughout] Blood Pressure 104/65 105/66 O2 Sat by Pulse 93 95 Oximetry 09/14/18 09/14/18 09/14/18 04:32 05:00 06:00 Temperature Pulse Rate 71 68 81 Pulse Rate [ Anterior Bilateral Throughout] Pulse Rate [ From Monitor] Respiratory 16 11 L 18 Rate Respiratory Rate [Anterior Bilateral Throughout] Blood Pressure 105/66 116/73 116/73 O2 Sat by Pulse 94 96 93 Oximetry 09/14/18 09/14/18 09/14/18 07:00 08:00 08:20 Temperature 98.5 F 98.5 F Pulse Rate Pulse Rate [ 79 Anterior Bilateral Throughout] Pulse Rate [ 85 From Monitor] Respiratory 35 H 24 Rate Respiratory 22 Rate [Anterior Bilateral Throughout] Blood Pressure 103/65 O2 Sat by Pulse 96 96 Oximetry 09/14/18 09/14/18 08:45 09:38 Temperature Pulse Rate Pulse Rate [ 77 Anterior Bilateral Throughout] Pulse Rate [ From Monitor] Respiratory Rate Respiratory 22 Rate [Anterior Bilateral Throughout] Blood Pressure O2 Sat by Pulse 94 Oximetry - Labs CBC & Chem 7: 09/13/18 04:41 09/13/18 04:41 Labs: Abnormal lab results 09/13/18 09/14/18 Range/Units 17:16 05:51 POC Glucose 220 H 204 H (70-105)
[2018-09-14 14:38] LABS: INR 0.96 (0.87-1.13)
--- NOTE | 2018-09-14 15:55 | XRay Report ---
FINAL REPORT EXAM: XR ABDOMEN 1V AP HISTORY: Dobhoff placement COMPARISON: Radiograph of the abdomen performed on 09/06/2018 TECHNIQUE: Single frontal view of the abdomen FINDINGS: Weighted enteric tube with tip in the proximal stomach. Nonobstructive bowel gas pattern. No free air . No abnormal calcification. No organomegaly. IMPRESSION: Weighted enteric tube with tip in the proximal stomach. Consider advancement.
[2018-09-14] MEDS: CEPHULAC PO SCH ×2 (22:05→23:19)
--- NOTE | 2018-09-14 22:59 | Progress Note ---
Assessment and Plan Patient sleeping at this time on BIPAP BIPAP 16/8, FIO2 32%, Rate 16. Patients O2 saturation 97%. Patient tolerating BIPAP settings good. No acute respiratory distress. - Patient Problems (1) Obesity hypoventilation syndrome Current Visit: Yes Status: Acute Plan to address problem: Patient is on BIPAP 16/8, rate 16, FIO2 32% Albuterol/atrovent aerosol treatments q 6 hours. Continue I/V solumedrol. Continue S/C Lovenox. Continue prevacid. (2) Altered mental status Current Visit: Yes Status: Acute Plan to address problem: Mangement as per primary care and neurology. (3) Acute kidney injury Current Visit: Yes Status: Acute Plan to address problem: Management as per nephrology. (4) SIRS (systemic inflammatory response syndrome) Current Visit: Yes Status: Acute Plan to address problem: Patient is on steroids and also on other anti inflammatory medications. Subjective Date of service: 09/14/18 Principal diagnosis: Ac Hypoxemic Resp failure; AE-COPD; Pneumonia (Aspiration); Ac encephalopat Interval history: Patient sleeping at this time on BIPAP BIPAP 16/8, FIO2 32%, Rate 16. Patients O2 saturation 97%. Patient tolerating BIPAP settings good. No acute respiratory distress. Objective Vital Signs - 12hr 09/14/18 09/14/18 09/14/18 11:00 12:00 13:00 Temperature 98.0 F Pulse Rate 71 84 72 Pulse Rate [ Anterior Bilateral Throughout] Pulse Rate [ 84 From Monitor] Respiratory 13 20 29 H Rate Respiratory Rate [Anterior Bilateral Throughout] Blood Pressure 100/62 125/69 125/56 O2 Sat by Pulse 96 96 95 Oximetry 09/14/18 09/14/18 09/14/18 14:00 14:40 14:53 Temperature Pulse Rate 68 Pulse Rate [ 72 74 Anterior Bilateral Throughout] Pulse Rate [ From Monitor] Respiratory 20 Rate Respiratory 20 22 Rate [Anterior Bilateral Throughout] Blood Pressure 106/62 O2 Sat by Pulse 95 Oximetry 09/14/18 09/14/18 09/14/18 15:00 16:00 17:00 Temperature 99 F Pulse Rate 75 66 68 Pulse Rate [ Anterior Bilateral Throughout] Pulse Rate [ 88 From Monitor] Respiratory 27 H 22 13 Rate Respiratory Rate [Anterior Bilateral Throughout] Blood Pressure 118/79 94/59 107/70 O2 Sat by Pulse 94 95 95 Oximetry 09/14/18 09/14/18 09/14/18 18:00 19:00 19:25 Temperature 97.8 F Pulse Rate 65 67 Pulse Rate [ Anterior Bilateral Throughout] Pulse Rate [ From Monitor] Respiratory 23 24 Rate Respiratory Rate [Anterior Bilateral Throughout] Blood Pressure 101/59 98/65 O2 Sat by Pulse 99 97 Oximetry 09/14/18 09/14/18 09/14/18 19:28 19:38 20:00 Temperature Pulse Rate 68 71 Pulse Rate [ 70 75 Anterior Bilateral Throughout] Pulse Rate [ 88 From Monitor] Respiratory 17 14 Rate Respiratory 17 19 Rate [Anterior Bilateral Throughout] Blood Pressure 98/65 O2 Sat by Pulse 95 100 Oximetry 09/14/18 22:55 Temperature 98.4 F Pulse Rate Pulse Rate [ Anterior Bilateral Throughout] Pulse Rate [ From Monitor] Respiratory Rate Respiratory Rate [Anterior Bilateral Throughout] Blood Pressure O2 Sat by Pulse Oximetry Constitutional: no acute distress, asleep, other (elderly looking CM, normoc ephalic and atraumatic sitting out of bed in a chair) Eyes: non-icteric ENT: oropharynx moist, other Neck: supple, no lymphadenopathy, no JVD, other (large neck circumference) Effort: mildly labored Ascultation: Bilateral: diminished breath sounds, rhonchi Percussion: Bilateral: not dull Cardiovascular: regular rate and rhythm, other (S1,S2, no murmurs, gallops or rubs) Gastrointestinal: normoactive bowel sounds, soft, non-tender, non-distended Integumentary: normal Extremities: no cyanosis, no edema, pink and warm, pulses normal Neurologic: non-focal exam, pupils equal and round, motor strength normal and, other (intention tremors) Psychiatric: other (unable to assess adequately) CBC and BMP: 09/13/18 04:41 09/13/18 04:41 ABG, PT/INR, D-dimer: ABG POC ABG pH 7.534 (7.35-7.45) H 09/12/18 05:29 POC ABG pCO2 50.4 (35-45) H 09/12/18 05:29 POC ABG pO2 86 (80-105) 09/12/18 05:29 POC ABG HCO3 42.5 09/12/18 05:29 POC ABG Total CO2 44 09/12/18 05:29 POC ABG O2 Sat 97 09/12/18 05:29 PT/INR, D-dimer PT 13.2 Sec. (12.2-14.9) 09/14/18 13:25 INR 0.96 (0.87-1.13) 09/14/18 13:25 D-Dimer 4180.35 ng/mlDDU (0-234) H 09/02/18 12:35 Abnormal lab findings: Abnormal Labs 09/02/18 09/02/18 09/02/18 12:35 12:35 12:35 WBC RBC 6.15 H Hgb 18.7 H Hct 57.7 H MCV RDW 15.5 H Plt Count Lymph % (Auto) 8.8 L Lymph # 0.9 L Seg Neutrophils % 83.2 H Seg Neuts % (Manual) Lymphocytes % (Manual) Seg Neutrophils # 8.9 H Seg Neutrophils # Man Lymphocytes # (Manual) PT 20.8 H INR 1.74 H D-Dimer 4180.35 H POC ABG pH POC ABG pCO2 POC ABG pO2 Sodium Potassium Chloride Carbon Dioxide BUN Creatinine Glucose POC Glucose Lactic Acid Calcium Magnesium Total Bilirubin Direct Bilirubin AST Ammonia C-Reactive Protein Total Protein Albumin Triglycerides HDL Cholesterol Lipase TSH Free T4 Urine WBC (Auto) Salicylates < 0.3 L Acetaminophen 09/02/18 09/02/18 09/02/18 12:35 12:35 12:35 WBC RBC Hgb Hct MCV RDW Plt Count Lymph % (Auto) Lymph # Seg Neutrophils % Seg Neuts % (Manual) Lymphocytes % (Manual) Seg Neutrophils # Seg Neutrophils # Man Lymphocytes # (Manual) PT INR D-Dimer POC ABG pH POC ABG pCO2 POC ABG pO2 Sodium Potassium Chloride Carbon Dioxide BUN Creatinine Glucose POC Glucose 167 H Lactic Acid 3.20 H* Calcium Magnesium Total Bilirubin Direct Bilirubin AST Ammonia C-Reactive Protein Total Protein Albumin Triglycerides HDL Cholesterol Lipase TSH Free T4 Urine WBC (Auto) Salicylates Acetaminophen < 5.0 L 09/02/18 09/02/18 09/02/18 13:36 14:40 16:45 WBC RBC Hgb Hct MCV RDW Plt Count Lymph % (Auto) Lymph # Seg Neutrophils % Seg Neuts % (Manual) Lymphocytes % (Manual) Seg Neutrophils # Seg Neutrophils # Man Lymphocytes # (Manual) PT INR D-Dimer POC ABG pH POC ABG pCO2 POC ABG pO2 Sodium 159 H Potassium Chloride 114.7 H Carbon Dioxide BUN 90 H Creatinine Glucose 172 H POC Glucose Lactic Acid 2.30 H* Calcium 10.8 H Magnesium Total Bilirubin Direct Bilirubin 0.3 H AST Ammonia C-Reactive Protein Total Protein Albumin 2.6 L Triglycerides HDL Cholesterol Lipase 81 H TSH < 0.005 L Free T4 2.40 H Urine WBC (Auto) Salicylates Acetaminophen 09/03/18 09/03/18 09/03/18 11:26 11:26 11:26 WBC RBC Hgb Hct MCV RDW Plt Count Lymph % (Auto) Lymph # Seg Neutrophils % Seg Neuts % (Manual) Lymphocytes % (Manual) Seg Neutrophils # Seg Neutrophils # Man Lymphocytes # (Manual) PT 21.8 H INR 1.86 H D-Dimer POC ABG pH POC ABG pCO2 POC ABG pO2 Sodium 160 H Potassium Chloride 122.6 H Carbon Dioxide BUN 69 H Creatinine Glucose 127 H POC Glucose Lactic Acid Calcium Magnesium Total Bilirubin Direct Bilirubin AST Ammonia C-Reactive Protein Total Protein Albumin 2.1 L Triglycerides HDL Cholesterol Lipase TSH Free T4 Urine WBC (Auto) Salicylates Acetaminophen 09/03/18 09/03/18 09/03/18 11:26 15:39 20:23 WBC RBC Hgb Hct MCV RDW Plt Count Lymph % (Auto) Lymph # Seg Neutrophils % Seg Neuts % (Manual) Lymphocytes % (Manual) Seg Neutrophils # Seg Neutrophils # Man Lymphocytes # (Manual) PT INR D-Dimer POC ABG pH POC ABG pCO2 POC ABG pO2 Sodium 160 H 160 H Potassium Chloride Carbon Dioxide BUN Creatinine Glucose POC Glucose Lactic Acid Calcium Magnesium Total Bilirubin Direct Bilirubin AST Ammonia 75.0 H C-Reactive Protein Total Protein Albumin Triglycerides HDL Cholesterol Lipase TSH Free T4 Urine WBC (Auto) Salicylates Acetaminophen 09/03/18 09/04/18 09/04/18 Unknown 02:38 05:20 WBC RBC Hgb Hct MCV RDW Plt Count Lymph % (Auto) Lymph # Seg Neutrophils % Seg Neuts % (Manual) Lymphocytes % (Manual) Seg Neutrophils # Seg Neutrophils # Man Lymphocytes # (Manual) PT INR D-Dimer POC ABG pH POC ABG pCO2 POC ABG pO2 Sodium 160 H 166 H* Potassium Chloride 129.2 H Carbon Dioxide BUN 57 H Creatinine Glucose 137 H POC Glucose Lactic Acid Calcium Magnesium Total Bilirubin Direct Bilirubin AST Ammonia C-Reactive Protein Total Protein 5.8 L Albumin 2.7 L Triglycerides 150 H HDL Cholesterol 21 L Lipase TSH Free T4 Urine WBC (Auto) Salicylates Acetaminophen 09/04/18 09/04/18 09/04/18 05:20 09:11 13:35 WBC RBC 5.12 H Hgb 15.5 H D 15.6 H Hct 48.0 H D 48.1 H MCV RDW 15.9 H Plt Count Lymph % (Auto) 11.8 L Lymph # 0.8 L Seg Neutrophils % 80.1 H Seg Neuts % (Manual) Lymphocytes % (Manual) Seg Neutrophils # Seg Neutrophils # Man Lymphocytes # (Manual) PT INR D-Dimer POC ABG pH POC ABG pCO2 POC ABG pO2 Sodium 166 H* Potassium Chloride Carbon Dioxide BUN Creatinine Glucose POC Glucose Lactic Acid Calcium Magnesium Total Bilirubin Direct Bilirubin AST Ammonia C-Reactive Protein Total Protein Albumin Triglycerides HDL Cholesterol Lipase TSH Free T4 Urine WBC (Auto) Salicylates Acetaminophen 09/04/18 09/04/18 09/04/18 13:35 21:04 21:04 WBC RBC Hgb 16.9 H Hct 58.3 H D MCV RDW Plt Count Lymph % (Auto) Lymph # Seg Neutrophils % Seg Neuts % (Manual) Lymphocytes % (Manual) Seg Neutrophils # Seg Neutrophils # Man Lymphocytes # (Manual) PT INR D-Dimer POC ABG pH POC ABG pCO2 POC ABG pO2 Sodium 164 H* 159 H Potassium Chloride Carbon Dioxide BUN Creatinine Glucose POC Glucose Lactic Acid Calcium Magnesium Total Bilirubin Direct Bilirubin AST Ammonia C-Reactive Protein Total Protein Albumin Triglycerides HDL Cholesterol Lipase TSH Free T4 Urine WBC (Auto) Salicylates Acetaminophen 09/05/18 09/05/18 09/05/18 01:11 02:51 03:17 WBC RBC Hgb Hct MCV RDW Plt Count Lymph % (Auto) Lymph # Seg Neutrophils % Seg Neuts % (Manual) Lymphocytes % (Manual) Seg Neutrophils # Seg Neutrophils # Man Lymphocytes # (Manual) PT INR D-Dimer POC ABG pH 7.340 L POC ABG pCO2 57.8 H POC ABG pO2 74 L Sodium 152 H Potassium Chloride Carbon Dioxide BUN Creatinine Glucose POC Glucose 116 H Lactic Acid Calcium Magnesium Total Bilirubin Direct Bilirubin AST Ammonia C-Reactive Protein Total Protein Albumin Triglycerides HDL Cholesterol Lipase TSH Free T4 Urine WBC (Auto) Salicylates Acetaminophen 09/05/18 09/05/18 09/05/18 07:45 10:34 15:21 WBC RBC Hgb Hct MCV RDW Plt Count Lymph % (Auto) Lymph # Seg Neutrophils % Seg Neuts % (Manual) Lymphocytes % (Manual) Seg Neutrophils # Seg Neutrophils # Man Lymphocytes # (Manual) PT INR D-Dimer POC ABG pH POC ABG pCO2 POC ABG pO2 Sodium 156 H 153 H Potassium Chloride Carbon Dioxide BUN Creatinine Glucose POC Glucose Lactic Acid Calcium Magnesium Total Bilirubin Direct Bilirubin AST Ammonia 61.0 H C-Reactive Protein Total Protein Albumin Triglycerides HDL Cholesterol Lipase TSH Free T4 Urine WBC (Auto) Salicylates Acetaminophen 09/06/18 09/06/18 09/06/18 05:10 05:10 08:43 WBC RBC 5.06 H Hgb Hct 47.8 H D MCV RDW 15.3 H Plt Count Lymph % (Auto) Lymph # Seg Neutrophils % Seg Neuts % (Manual) Lymphocytes % (Manual) Seg Neutrophils # Seg Neutrophils # Man Lymphocytes # (Manual) PT INR D-Dimer POC ABG pH POC ABG pCO2 POC ABG pO2 Sodium 155 H 150 H Potassium Chloride 117.0 H Carbon Dioxide BUN 36 H Creatinine Glucose 143 H POC Glucose Lactic Acid Calcium Magnesium Total Bilirubin Direct Bilirubin AST Ammonia C-Reactive Protein Total Protein Albumin Triglycerides HDL Cholesterol Lipase TSH Free T4 Urine WBC (Auto) Salicylates Acetaminophen 09/06/18 09/06/18 09/06/18 13:21 15:11 16:23 WBC RBC Hgb Hct MCV RDW Plt Count Lymph % (Auto) Lymph # Seg Neutrophils % Seg Neuts % (Manual) Lymphocytes % (Manual) Seg Neutrophils # Seg Neutrophils # Man Lymphocytes # (Manual) PT INR D-Dimer POC ABG pH POC ABG pCO2 49.1 H POC ABG pO2 107 H Sodium 151 H Potassium Chloride Carbon Dioxide BUN Creatinine Glucose POC Glucose 120 H Lactic Acid Calcium Magnesium Total Bilirubin Direct Bilirubin AST Ammonia C-Reactive Protein Total Protein Albumin Triglycerides HDL Cholesterol Lipase TSH Free T4 Urine WBC (Auto) Salicylates Acetaminophen 09/06/18 09/07/18 09/07/18 21:58 00:25 02:49 WBC RBC 5.32 H Hgb 16.1 H Hct 50.2 H MCV 95 H RDW 15.6 H Plt Count Lymph % (Auto) Lymph # Seg Neutrophils % Seg Neuts % (Manual) Lymphocytes % (Manual) Seg Neutrophils # Seg Neutrophils # Man Lymphocytes # (Manual) PT INR D-Dimer POC ABG pH POC ABG pCO2 POC ABG pO2 Sodium 150 H Potassium Chloride Carbon Dioxide BUN Creatinine Glucose POC Glucose Lactic Acid Calcium Magnesium Total Bilirubin Direct Bilirubin AST Ammonia C-Reactive Protein 9.00 H Total Protein Albumin Triglycerides HDL Cholesterol Lipase TSH Free T4 Urine WBC (Auto) Salicylates Acetaminophen 09/07/18 09/07/18 09/07/18 02:49 03:43 09:17 WBC RBC Hgb Hct MCV RDW Plt Count Lymph % (Auto) Lymph # Seg Neutrophils % Seg Neuts % (Manual) Lymphocytes % (Manual) Seg Neutrophils # Seg Neutrophils # Man Lymphocytes # (Manual) PT INR D-Dimer POC ABG pH POC ABG pCO2 46.5 H POC ABG pO2 Sodium 149 H 155 H Potassium 5.2 H D Chloride 116.1 H Carbon Dioxide 21 L BUN 47 H Creatinine Glucose 122 H POC Glucose Lactic Acid Calcium Magnesium Total Bilirubin 1.80 H Direct Bilirubin AST 83 H Ammonia C-Reactive Protein Total Protein Albumin 1.8 L Triglycerides HDL Cholesterol Lipase TSH Free T4 Urine WBC (Auto) Salicylates Acetaminophen 09/07/18 09/08/18 09/08/18 16:02 00:14 00:51 WBC RBC Hgb Hct MCV RDW Plt Count Lymph % (Auto) Lymph # Seg Neutrophils % Seg Neuts % (Manual) Lymphocytes % (Manual) Seg Neutrophils # Seg Neutrophils # Man Lymphocytes # (Manual) PT INR D-Dimer POC ABG pH POC ABG pCO2 POC ABG pO2 Sodium 156 H 154 H Potassium Chloride Carbon Dioxide BUN Creatinine Glucose POC Glucose Lactic Acid Calcium Magnesium Total Bilirubin Direct Bilirubin AST Ammonia C-Reactive Protein Total Protein Albumin Triglycerides HDL Cholesterol Lipase TSH Free T4 Urine WBC (Auto) 41.0 H Salicylates Acetaminophen 09/08/18 09/08/18 09/08/18 04:22 04:22 04:46 WBC RBC Hgb Hct MCV 95 H RDW 15.3 H Plt Count Lymph % (Auto) Lymph # Seg Neutrophils % Seg Neuts % (Manual) Lymphocytes % (Manual) Seg Neutrophils # Seg Neutrophils # Man Lymphocytes # (Manual) PT INR D-Dimer POC ABG pH POC ABG pCO2 55.3 H POC ABG pO2 77 L Sodium 153 H Potassium 3.5 L D Chloride 114.8 H Carbon Dioxide BUN 69 H Creatinine Glucose 277 H POC Glucose Lactic Acid Calcium Magnesium Total Bilirubin Direct Bilirubin AST 44 H Ammonia C-Reactive Protein Total Protein 5.6 L Albumin 2.4 L Triglycerides HDL Cholesterol Lipase TSH Free T4 Urine WBC (Auto) Salicylates Acetaminophen 09/08/18 09/08/18 09/08/18 08:40 12:03 15:43 WBC RBC Hgb Hct MCV RDW Plt Count Lymph % (Auto) Lymph # Seg Neutrophils % Seg Neuts % (Manual) Lymphocytes % (Manual) Seg Neutrophils # Seg Neutrophils # Man Lymphocytes # (Manual) PT INR D-Dimer POC ABG pH POC ABG pCO2 POC ABG pO2 Sodium 154 H 152 H Potassium Chloride Carbon Dioxide BUN Creatinine Glucose POC Glucose 186 H Lactic Acid Calcium Magnesium Total Bilirubin Direct Bilirubin AST Ammonia C-Reactive Protein Total Protein Albumin Triglycerides HDL Cholesterol Lipase TSH Free T4 Urine WBC (Auto) Salicylates Acetaminophen 09/08/18 09/08/18 09/09/18 17:57 23:54 04:01 WBC RBC Hgb Hct MCV 95 H RDW 15.3 H Plt Count 130 L Lymph % (Auto) Lymph # Seg Neutrophils % Seg Neuts % (Manual) Lymphocytes % (Manual) Seg Neutrophils # Seg Neutrophils # Man Lymphocytes # (Manual) PT INR D-Dimer POC ABG pH POC ABG pCO2 POC ABG pO2 Sodium Potassium Chloride Carbon Dioxide BUN Creatinine Glucose POC Glucose 252 H 297 H Lactic Acid Calcium Magnesium Total Bilirubin Direct Bilirubin AST Ammonia C-Reactive Protein Total Protein Albumin Triglycerides HDL Cholesterol Lipase TSH Free T4 Urine WBC (Auto) Salicylates Acetaminophen 09/09/18 09/09/18 09/09/18 04:01 04:33 05:32 WBC RBC Hgb Hct MCV RDW Plt Count Lymph % (Auto) Lymph # Seg Neutrophils % Seg Neuts % (Manual) Lymphocytes % (Manual) Seg Neutrophils # Seg Neutrophils # Man Lymphocytes # (Manual) PT INR D-Dimer POC ABG pH 7.267 L POC ABG pCO2 76.6 H POC ABG pO2 69 L Sodium 150 H Potassium Chloride 110.9 H Carbon Dioxide 32 H BUN 62 H Creatinine Glucose 220 H POC Glucose 196 H Lactic Acid Calcium 10.3 H Magnesium Total Bilirubin Direct Bilirubin AST Ammonia C-Reactive Protein Total Protein Albumin Triglycerides HDL Cholesterol Lipase TSH Free T4 Urine WBC (Auto) Salicylates Acetaminophen 09/09/18 09/09/18 09/09/18 11:40 17:57 23:36 WBC RBC Hgb Hct MCV RDW Plt Count Lymph % (Auto) Lymph # Seg Neutrophils % Seg Neuts % (Manual) Lymphocytes % (Manual) Seg Neutrophils # Seg Neutrophils # Man Lymphocytes # (Manual) PT INR D-Dimer POC ABG pH POC ABG pCO2 POC ABG pO2 Sodium Potassium Chloride Carbon Dioxide BUN Creatinine Glucose POC Glucose 217 H 172 H 131 H Lactic Acid Calcium Magnesium Total Bilirubin Direct Bilirubin AST Ammonia C-Reactive Protein Total Protein Albumin Triglycerides HDL Cholesterol Lipase TSH Free T4 Urine WBC (Auto) Salicylates Acetaminophen 09/10/18 09/10/18 09/10/18 05:07 05:07 05:51 WBC RBC Hgb Hct MCV RDW Plt Count 115 L Lymph % (Auto) Lymph # Seg Neutrophils % Seg Neuts % (Manual) 95.0 H Lymphocytes % (Manual) 3.0 L Seg Neutrophils # Seg Neutrophils # Man Lymphocytes # (Manual) 0.2 L PT INR D-Dimer POC ABG pH POC ABG pCO2 POC ABG pO2 Sodium 146 H Potassium Chloride Carbon Dioxide 33 H BUN 46 H Creatinine 0.7 L Glucose 174 H POC Glucose 169 H Lactic Acid Calcium 10.3 H Magnesium Total Bilirubin Direct Bilirubin AST Ammonia C-Reactive Protein Total Protein Albumin Triglycerides HDL Cholesterol Lipase TSH Free T4 Urine WBC (Auto) Salicylates Acetaminophen 09/10/18 09/10/18 09/10/18 14:25 15:02 17:48 WBC RBC Hgb Hct MCV RDW Plt Count Lymph % (Auto) Lymph # Seg Neutrophils % Seg Neuts % (Manual) Lymphocytes % (Manual) Seg Neutrophils # Seg Neutrophils # Man Lymphocytes # (Manual) PT INR D-Dimer POC ABG pH POC ABG pCO2 62.6 H POC ABG pO2 Sodium Potassium Chloride Carbon Dioxide BUN Creatinine Glucose POC Glucose 240 H 185 H Lactic Acid Calcium Magnesium Total Bilirubin Direct Bilirubin AST Ammonia C-Reactive Protein Total Protein Albumin Triglycerides HDL Cholesterol Lipase TSH Free T4 Urine WBC (Auto) Salicylates Acetaminophen 09/10/18 09/11/18 09/11/18 23:28 04:25 04:38 WBC RBC Hgb Hct MCV RDW Plt Count Lymph % (Auto) Lymph # Seg Neutrophils % Seg Neuts % (Manual) Lymphocytes % (Manual) Seg Neutrophils # Seg Neutrophils # Man Lymphocytes # (Manual) PT INR D-Dimer POC ABG pH 7.487 H POC ABG pCO2 52.3 H POC ABG pO2 61 L Sodium 146 H Potassium Chloride Carbon Dioxide 37 H BUN 38 H Creatinine Glucose 254 H POC Glucose 132 H Lactic Acid Calcium 10.7 H Magnesium Total Bilirubin Direct Bilirubin AST Ammonia C-Reactive Protein Total Protein Albumin Triglycerides HDL Cholesterol Lipase TSH Free T4 Urine WBC (Auto) Salicylates Acetaminophen 09/11/18 09/11/18 09/11/18 05:09 11:58 17:54 WBC RBC Hgb Hct MCV RDW Plt Count Lymph % (Auto) Lymph # Seg Neutrophils % Seg Neuts % (Manual) Lymphocytes % (Manual) Seg Neutrophils # Seg Neutrophils # Man Lymphocytes # (Manual) PT INR D-Dimer POC ABG pH 7.538 H POC ABG pCO2 50.4 H POC ABG pO2 78 L Sodium Potassium Chloride Carbon Dioxide BUN Creatinine Glucose POC Glucose 190 H 126 H Lactic Acid Calcium Magnesium Total Bilirubin Direct Bilirubin AST Ammonia C-Reactive Protein Total Protein Albumin Triglycerides HDL Cholesterol Lipase TSH Free T4 Urine WBC (Auto) Salicylates Acetaminophen 09/11/18 09/12/18 09/12/18 23:44 05:29 05:36 WBC RBC Hgb Hct MCV RDW Plt Count Lymph % (Auto) Lymph # Seg Neutrophils % Seg Neuts % (Manual) Lymphocytes % (Manual) Seg Neutrophils # Seg Neutrophils # Man Lymphocytes # (Manual) PT INR D-Dimer POC ABG pH 7.534 H POC ABG pCO2 50.4 H POC ABG pO2 Sodium Potassium Chloride Carbon Dioxide BUN Creatinine Glucose POC Glucose 119 H Lactic Acid Calcium Magnesium 2.40 H Total Bilirubin Direct Bilirubin AST Ammonia C-Reactive Protein Total Protein Albumin Triglycerides HDL Cholesterol Lipase TSH Free T4 Urine WBC (Auto) Salicylates Acetaminophen 09/12/18 09/12/18 09/12/18 08:05 08:05 17:10 WBC 11.7 H RBC Hgb Hct MCV RDW Plt Count 124 L Lymph % (Auto) Lymph # Seg Neutrophils % Seg Neuts % (Manual) 89.0 H Lymphocytes % (Manual) 9.0 L Seg Neutrophils # Seg Neutrophils # Man 10.4 H Lymphocytes # (Manual) 1.1 L PT INR D-Dimer POC ABG pH POC ABG pCO2 POC ABG pO2 Sodium Potassium Chloride 97.1 L Carbon Dioxide 38 H BUN 34 H Creatinine 0.7 L Glucose 127 H POC Glucose 134 H Lactic Acid Calcium 10.3 H Magnesium Total Bilirubin Direct Bilirubin AST Ammonia C-Reactive Protein Total Protein Albumin Triglycerides HDL Cholesterol Lipase TSH Free T4 Urine WBC (Auto) Salicylates Acetaminophen 09/13/18 09/13/18 09/13/18 00:09 04:41 04:41 WBC 11.5 H RBC 5.15 H Hgb Hct 47.2 H MCV RDW Plt Count 129 L Lymph % (Auto) Lymph # Seg Neutrophils % Seg Neuts % (Manual) 89.0 H Lymphocytes % (Manual) 5.0 L Seg Neutrophils # Seg Neutrophils # Man 10.2 H Lymphocytes # (Manual) 0.6 L PT INR D-Dimer POC ABG pH POC ABG pCO2 POC ABG pO2 Sodium Potassium Chloride 96.6 L Carbon Dioxide 34 H BUN 38 H Creatinine Glucose 197 H POC Glucose 149 H Lactic Acid Calcium Magnesium Total Bilirubin Direct Bilirubin AST Ammonia C-Reactive Protein Total Protein Albumin Triglycerides HDL Cholesterol Lipase TSH Free T4 Urine WBC (Auto) Salicylates Acetaminophen 09/13/18 09/13/18 09/14/18 05:10 17:16 05:51 WBC RBC Hgb Hct MCV RDW Plt Count Lymph % (Auto) Lymph # Seg Neutrophils % Seg Neuts % (Manual) Lymphocytes % (Manual) Seg Neutrophils # Seg Neutrophils # Man Lymphocytes # (Manual) PT INR D-Dimer POC ABG pH POC ABG pCO2 POC ABG pO2 Sodium Potassium Chloride Carbon Dioxide BUN Creatinine Glucose POC Glucose 199 H 220 H 204 H Lactic Acid Calcium Magnesium Total Bilirubin Direct Bilirubin AST Ammonia C-Reactive Protein Total Protein Albumin Triglycerides HDL Cholesterol Lipase TSH Free T4 Urine WBC (Auto) Salicylates Acetaminophen 09/14/18 09/14/18 11:32 17:17 WBC RBC Hgb Hct MCV RDW Plt Count Lymph % (Auto) Lymph # Seg Neutrophils % Seg Neuts % (Manual) Lymphocytes % (Manual) Seg Neutrophils # Seg Neutrophils # Man Lymphocytes # (Manual) PT INR D-Dimer POC ABG pH POC ABG pCO2 POC ABG pO2 Sodium Potassium Chloride Carbon Dioxide BUN Creatinine Glucose POC Glucose 149 H 170 H Lactic Acid Calcium Magnesium Total Bilirubin Direct Bilirubin AST Ammonia C-Reactive Protein Total Protein Albumin Triglycerides HDL Cholesterol Lipase TSH Free T4 Urine WBC (Auto) Salicylates Acetaminophen Allied health notes reviewed: RT
[2018-09-14] MEDS: LANTUS SUB-Q SCH (23:21)
[2018-09-15] MEDS: DUONEB *Not for PRN Use IH SCH ×4 (01:52→20:59)
[2018-09-15] MEDS: GENTAMICIN 0.3% OPHTH SOLN OU SCH ×5 (02:48→22:33)
--- NOTE | 2018-09-15 02:55 | XRay Report ---
FINAL REPORT PROCEDURE: XR ABDOMEN 1V AP TECHNIQUE: Abdominal radiograph, single supine AP view. HISTORY: To check NGT placement COMPARISON: 09/14/2018 FINDINGS: Bowel gas pattern:Nonobstructive. Masses or calcifications:None. Bony structures:No significant abnormality. Other:A nasogastric tube is curled in the gastroesophageal region. This is most likely in the proxima l stomach. IMPRESSION: Nasogastric tube is curled in the proximal stomach.
[2018-09-15 07:45] LABS: Hematocrit 43.1 % (35.5-45.6); Hemoglobin 14.2 gm/dl (11.8-15.2); Mean Corpuscular HGB Conc 33 % (32-34); Mean Corpuscular Volume 92 fl (84-94); Platelet Count 121 K/mm3 (140-440); Red Cell Distribution Width 14.7 % (13.2-15.2)
[2018-09-15] MEDS: PULMICORT IH SCH ×2 (07:52→20:50)
[2018-09-15] MEDS: BROVANA NEBU IH SCH ×2 (07:52→20:50)
[2018-09-15 07:57] LABS: Alanine Aminotransferase 95 units/L (7-56); Albumin 2.5 g/dL (3.9-5); BUN/Creatinine Ratio 49; Blood Urea Nitrogen 39 mg/dL (9-20); Calcium 9.7 mg/dL (8.4-10.2); Hemolysis Index 57
[2018-09-15 08:28] LABS: Basophils % (Manual) 0 % (0.0-1.8); Myelocytes # (Manual) 0.2 K/mm3; Total Cells Counted 100
[2018-09-15 08:29] LABS: Anisocytosis 1+; Platelet Estimate Consistent w Auto
--- NOTE | 2018-09-15 10:48 | Progress Note ---
Assessment and Plan - Patient Problems (1) Hypernatremia Current Visit: Yes Status: Acute Plan to address problem: Secondary to free water losses in the setting of decreased PO intake, now resolved. cont free water flushes via NGT (2) Acute renal failure Current Visit: Yes Status: Acute Plan to address problem: Overall renal function stable. Non-oliguric at present time based on I/O. Anaya placed for accurate I/O (3) Encephalopathy Current Visit: Yes Status: Acute Plan to address problem: Management per primary team. He is more awake this am but has had issues with agitation per nursing staff. (4) Hypercalcemia Current Visit: Yes Status: Acute Plan to address problem: due to dehydration, Ca improved on IVF Subjective Date of service: 09/15/18 Principal diagnosis: Ac Hypoxemic Resp failure; AE-COPD; Pneumonia (Aspiration); Ac encephalopat Interval history: Pt awake, alert, in no acute respiratory distress this AM Objective - Vital Signs Vital signs: Vital Signs - 12hr 09/14/18 09/14/18 09/14/18 22:55 23:00 23:48 Temperature 98.4 F Pulse Rate 64 60 Pulse Rate [ Anterior Bilateral Throughout] Pulse Rate [ From Monitor] Respiratory 16 17 Rate Respiratory Rate [Anterior Bilateral Throughout] Blood Pressure 113/68 150/94 O2 Sat by Pulse 98 97 Oximetry 09/15/18 09/15/18 09/15/18 00:00 01:00 01:52 Temperature Pulse Rate 60 57 L Pulse Rate [ 58 L Anterior Bilateral Throughout] Pulse Rate [ 71 From Monitor] Respiratory 14 16 Rate Respiratory 16 Rate [Anterior Bilateral Throughout] Blood Pressure 104/64 105/68 O2 Sat by Pulse 97 97 Oximetry 09/15/18 09/15/18 09/15/18 02:00 02:02 03:00 Temperature Pulse Rate 59 L 64 Pulse Rate [ 62 Anterior Bilateral Throughout] Pulse Rate [ From Monitor] Respiratory 16 19 Rate Respiratory 17 Rate [Anterior Bilateral Throughout] Blood Pressure 131/78 135/80 O2 Sat by Pulse 98 98 Oximetry 09/15/18 09/15/18 09/15/18 03:07 04:00 05:00 Temperature 98.8 F Pulse Rate 60 63 Pulse Rate [ Anterior Bilateral Throughout] Pulse Rate [ 71 From Monitor] Respiratory 15 21 Rate Respiratory Rate [Anterior Bilateral Throughout] Blood Pressure 131/78 131/78 O2 Sat by Pulse 99 97 Oximetry 09/15/18 09/15/18 09/15/18 07:52 08:00 08:12 Temperature 97.8 F Pulse Rate Pulse Rate [ 64 Anterior Bilateral Throughout] Pulse Rate [ From Monitor] Respiratory Rate Respiratory 18 Rate [Anterior Bilateral Throughout] Blood Pressure O2 Sat by Pulse 97 95 Oximetry - General Appearance General appearance: appears stated age, chronically ill EENT: ATNC, PERRL, mucous membranes moist Neck: no JVD Respiratory: Present: Clear to Ascultation Cardiology: regular, S1S2 Gastrointestinal: normoactive bowel sounds Integumentary: no rash, other (no edema ) Neurologic: no focal deficit, alert and oriented x3, strength 5/5, CN 3-12 intact Psychiatric: mood/affect appropriate, cooperative - Lab 09/15/18 06:58 09/15/18 06:58 Most recent lab results Calcium 9.7 mg/dL (8.4-10.2) 09/15/18 06:58 Magnesium 2.40 mg/dL (1.7-2.3) H 09/11/18 23:44 Medications & Allergies - Medications Allergies/Adverse Reactions: Allergies No Known Allergies Allergy (Verified 09/02/18 13:48) Home Medications: Home Medications Medication Instructions Recorded Confirmed Last Taken Type Hydrochlorothiazide 25 mg PO DAILY 09/07/18 09/07/18 Unknown History Lisinopril 5 mg PO DAILY 09/07/18 09/07/18 Unknown History Rosuvastatin Calcium 40 mg PO DAILY 09/07/18 09/07/18 Unknown History Tamsulosin 0.4 mg PO DAILY 09/07/18 09/07/18 Unknown History metFORMIN 500 mg PO BID 09/07/18 09/07/18 Unknown History Active Medications: Generic Name Dose Route Start Last Admin Trade Name Freq PRN Reason Stop Dose Admin Acetaminophen 650 mg 09/02/18 15:03 Tylenol PO Q4H PRN Pain, Mild (1-3) Albuterol 2.5 mg 09/06/18 17:35 09/11/18 13:11 Proventil IH 2.5 mg Q4HRT PRN Administration Shortness Of Breath Albuterol/Ipratropium 1 ampul 09/06/18 17:35 09/15/18 07:52 Duoneb *Not For Prn Use* IH Not Given Q6HRT ROXY Arformoterol Tartrate 15 mcg 09/06/18 20:45 09/15/18 07:52 Brovana Nebu IH 15 mcg Q12HRT ROXY Administration Atorvastatin Calcium 40 mg 09/02/18 22:00 09/14/18 23:21 Lipitor PO 40 mg QHS ROXY Administration Bisacodyl 10 mg 09/02/18 15:03 Dulcolax IL QDAY PRN Constipation Budesonide 0.5 mg 09/07/18 08:00 09/15/18 07:52 Pulmicort IH 0.5 mg Q12HRT ROXY Administration Bupropion HCl 150 mg 09/11/18 10:00 09/14/18 23:20 Wellbutrin PO 150 mg BID ROXY Administration Dextrose 50 ml 09/08/18 10:58 D50w (25gm) Syringe IV PRN PRN Hypoglycemia Docusate Sodium 100 mg 09/10/18 12:00 09/14/18 23:18 Colace FEEDTUBE 100 mg BID ROXY Administration Enoxaparin Sodium 40 mg 09/08/18 15:00 09/14/18 10:24 Lovenox SUB-Q 40 mg QDAY@1000 ROXY Administration Gentamicin Sulfate 1 drops 09/12/18 14:00 09/15/18 02:48 Gentamicin 0.3% Ophth Soln OU 09/16/18 13:59 1 drops Q4HR ROXY Administration Haloperidol Lactate 5 mg 09/09/18 14:18 09/14/18 05:45 Haldol IV 5 mg Q6H PRN Administration Agitation Hydrochlorothiazide 25 mg 09/12/18 14:30 09/14/18 10:23 Hctz PO 25 mg QDAY ROXY Administration Hydrocortisone Acetate 1 applic 09/04/18 16:00 09/14/18 22:15 Proctosol-Hc IL 1 applic Q8HR ROXY Administration Hydrophilic Ointment 1 applic 09/06/18 15:34 Vaseline Lip Therapy TP Q2H PRN Dry Lips Dextrose 1,000 mls @ 100 mls/hr 09/09/18 07:00 09/14/18 23:19 D5w IV 100 mls/hr DIRECT ROXY Administration Insulin Glargine 10 units 09/09/18 22:00 09/14/18 23:21 Lantus SUB-Q 10 units QHS ROXY Administration Insulin Human Lispro 0 unit 09/08/18 12:00 09/15/18 00:00 Humalog SUB-Q Not Given Q6HR [facility] Protocol Lactulose 20 gm 09/08/18 18:29 Cephulac PO Q6HR PRN Delerium Lactulose 20 gm 09/12/18 11:00 09/14/18 23:19 Cephulac PO 20 gm QHS ROXY Administration Lansoprazole 30 mg 09/08/18 10:00 09/14/18 10:22 Prevacid Solutab FEEDTUBE 30 mg QDAY ROXY Administration Magnesium Hydroxide 30 ml 09/02/18 15:03 Milk Of Magnesia PO Q4H PRN Constipation Metoclopramide HCl 10 mg 09/02/18 15:03 Reglan PO Q6H PRN Nausea And Vomiting Multi-Ingred Cream/Lotion/Oil/Oint 1 applic 09/06/18 15:34 Artificial Tears Ophth Oint OU Q4H PRN Dry Eye(s) Ondansetron HCl 4 mg 09/02/18 15:03 Zofran IV Q8H PRN Nausea And Vomiting Potassium Chloride 40 meq 09/15/18 10:45 Potassium Chloride FEEDTUBE 09/15/18 10:46 ONCE ONE Prednisone 10 mg 09/15/18 10:00 Deltasone PO QDAY [facility] Promethazine HCl 25 mg 09/02/18 15:03 Phenergan IL Q6H PRN Nausea And Vomiting Sodium Chloride 10 ml 09/02/18 15:03 Sodium Chloride Flush Syringe 10 Ml IV PRN PRN LINE FLUSH Tamsulosin HCl 0.4 mg 09/07/18 15:00 09/14/18 10:23 Flomax PO 0.4 mg QDAY ROXY Administration
[2018-09-15] MEDS: LOVENOX SUB-Q SCH (10:49)
[2018-09-15] MEDS: COLACE FEEDTUBE SCH ×2 (10:50→22:34)
[2018-09-15] MEDS: HCTZ PO SCH (10:50)
[2018-09-15] MEDS: PREVACID SOLUTAB FEEDTUBE SCH (10:50)
[2018-09-15] MEDS: DELTASONE PO SCH (10:50)
[2018-09-15] MEDS: FLOMAX PO SCH (10:50)
[2018-09-15] MEDS: WELLBUTRIN PO SCH ×2 (10:50→22:39)
[2018-09-15] MEDS ORDERED: POTASSIUM CHLORIDE FEEDTUBE NR (11:30)
[2018-09-15] MEDS: HumaLOG SUB-Q SCH ×3 (12:42→18:15)
[2018-09-15] MEDS: PROCTOSOL-HC PR SCH ×3 (15:12→22:33)
--- NOTE | 2018-09-15 15:44 | Progress Note ---
Assessment and Plan Assessment and plan: 68 YO Male with Obesity Hypoventilation, COPD presents to ED for evaluation. Pt is confused, lethargic and unable to provide history. Pt history provided by his brother who is at bedside during exam and interview. As per brother, the patient has not returned phone calls over the past 4 days. As a result, the brother went to the home but the patient did not answer the door. Law Enforcement notified, and entry into the home was obtained. The patient was found down and covered in his own feces. Pt exhibited slurred speech, confusion. EMS notified and upon arrival, the patient was found to have a neurologic deficit. A code stroke was called, and the patient was transported to [facility]. Pt seen and evaluated in ED and found to have evidence of CVA as well as SIRS, Acidosis, and Encephalopathy. Pt admitted to telemetry and initiated on CVA protocol. He was intubated with concern for aspiration. Neurology consulted. Acute Metabolic encephalopathy - resolved - CT, MRI head negative for CVA Delirium - resolved Acute Hypoxic Respiratory failure, COPD exacerbation - Patient extubated on 09/11 - patient is off oxygen Hypernatremia - Resolved Rectal Bleed - Evaluated by GI and they decreased his due to hemorrhoid - H&H stable Aspiration Pneumonia - Finished antibiotics Obesity Hypoventilation syndrome - Oxygen support ETOH use disorder hYPOTHYRODISIM - On Synthroid Moderate Protien calorie Malnutrition - nutrition consult Secondary Coagulopathy ?UNDERLYING LIVER DISEASE VS IATROGENIC MEDICATION - Supportive care Sepsis - Resolved Tobacco use disorder per hx; counsell when stable Patient is on folic cath is placed by urology. Dysphagia; on mechanical soft diet per ST. Diabetes mellitus - on basal and sliding scale insulin History Interval history: Patient was seen and evaluated this morning, patient was extubated on 09/11/18. patient was alert and oriented. Hospitalist Physical - Physical exam Narrative exam: Patient was on [place] oxygen. Alert and oriented. The patient is obese. Vital signs as documented. Head exam is unremarkable. No scleral icterus . Neck is without jugular venous distension, thyromegaly, or carotid bruits. Lungs are clear to auscultation. Cardiac exam reveals regular rate and Rhythm. Abdominal exam reveals normal bowel sounds. Extremities are nonedematous and both femoral and pedal pulses are normal. EDM OPERATOR:Patient was alert and oriented. - Constitutional Vitals: Temp Pulse Resp BP Pulse Ox 98.1 F 66 20 143/85 93 09/15/18 12:00 09/15/18 15:02 09/15/18 15:02 09/15/18 12:00 09/15/18 12:00 General appearance: Present: mild distress, obese, disheveled Results - Labs CBC & Chem 7: 09/15/18 06:58 09/15/18 06:58 Labs: Laboratory Last Values WBC 9.5 K/mm3 (4.5-11.0) 09/15/18 06:58 RBC 4.70 M/mm3 (3.65-5.03) 09/15/18 06:58 Hgb 14.2 gm/dl (11.8-15.2) 09/15/18 06:58 Hct 43.1 % (35.5-45.6) 09/15/18 06:58 MCV 92 fl (84-94) 09/15/18 06:58 MCH 30 pg (28-32) 09/15/18 06:58 MCHC 33 % (32-34) 09/15/18 06:58 RDW 14.7 % (13.2-15.2) 09/15/18 06:58 Plt Count 121 K/mm3 (140-440) L 09/15/18 06:58 Lymph % (Auto) 11.8 % (13.4-35.0) L 09/04/18 05:20 [place] % (Auto) 6.8 % (0.0-7.3) 09/04/18 05:20 Eos % (Auto) 1.0 % (0.0-4.3) 09/04/18 05:20 Baso % (Auto) 0.3 % (0.0-1.8) 09/04/18 05:20 Lymph # 0.8 K/mm3 (1.2-5.4) L 09/04/18 05:20 [place] # 0.5 K/mm3 (0.0-0.8) 09/04/18 05:20 Eos # 0.1 K/mm3 (0.0-0.4) 09/04/18 05:20 Baso # 0.0 K/mm3 (0.0-0.1) 09/04/18 05:20 Add Manual Diff Complete 09/15/18 06:58 Total Counted 100 09/15/18 06:58 Seg Neutrophils % Mrb Engineer 09/13/18 04:41 Seg Neuts % (Manual) 81.0 % (40.0-70.0) H 09/15/18 06:58 Band Neutrophils % 0 % 09/15/18 06:58 Lymphocytes % (Manual) 14.0 % (13.4-35.0) 09/15/18 06:58 Reactive Lymphs % (Man) 0 % 09/15/18 06:58 Monocytes % (Manual) 2.0 % (0.0-7.3) 09/15/18 06:58 Eosinophils % (Manual) 1.0 % (0.0-4.3) 09/15/18 06:58 Basophils % (Manual) 0 % (0.0-1.8) 09/15/18 06:58 Metamyelocytes % 0 % 09/15/18 06:58 Myelocytes % 2.0 % 09/15/18 06:58 Promyelocytes % 0 % 09/15/18 06:58 Blast Cells % 0 % 09/15/18 06:58 Nucleated RBC % Not Reportable 09/15/18 06:58 Seg Neutrophils # 5.5 K/mm3 (1.8-7.7) 09/04/18 05:20 Seg Neutrophils # Man 7.7 K/mm3 (1.8-7.7) 09/15/18 06:58 Band Neutrophils # 0.0 K/mm3 09/15/18 06:58 Lymphocytes # (Manual) 1.3 K/mm3 (1.2-5.4) 09/15/18 06:58 Abs React Lymphs (Man) 0.0 K/mm3 09/15/18 06:58 Monocytes # (Manual) 0.2 K/mm3 (0.0-0.8) 09/15/18 06:58 Eosinophils # (Manual) 0.1 K/mm3 (0.0-0.4) 09/15/18 06:58 Basophils # (Manual) 0.0 K/mm3 (0.0-0.1) 09/15/18 06:58 Metamyelocytes # 0.0 K/mm3 09/15/18 06:58 Myelocytes # 0.2 K/mm3 09/15/18 06:58 Promyelocytes # 0.0 K/mm3 09/15/18 06:58 Blast Cells # 0.0 K/mm3 09/15/18 06:58 WBC Morphology Not Reportable 09/15/18 06:58 Hypersegmented Neuts Not Reportable 09/15/18 06:58 Hyposegmented Neuts Not Reportable 09/15/18 06:58 Hypogranular Neuts Not Reportable 09/15/18 06:58 Smudge Cells Not Reportable 09/15/18 06:58 Toxic Granulation Not Reportable 09/15/18 06:58 Toxic Vacuolation Not Reportable 09/15/18 06:58 Dohle Bodies Not Reportable 09/15/18 06:58 Pelger-Huet Anomaly Not Reportable 09/15/18 06:58 Tony Rods Not Reportable 09/15/18 06:58 Platelet Estimate Consistent w auto 09/15/18 06:58 Clumped Platelets Not Reportable 09/15/18 06:58 Plt Clumps, EDTA Not Reportable 09/15/18 06:58 Large Platelets Not Reportable 09/15/18 06:58 Giant Platelets Not Reportable 09/15/18 06:58 Platelet Satelliting Not Reportable 09/15/18 06:58 Plt Morphology Comment Not Reportable 09/15/18 06:58 RBC Morphology Not Reportable 09/15/18 06:58 Dimorphic RBCs Not Reportable 09/15/18 06:58 Polychromasia Few 09/15/18 06:58 Hypochromasia Not Reportable 09/15/18 06:58 Poikilocytosis Not Reportable 09/15/18 06:58 Anisocytosis 1+ 09/15/18 06:58 Microcytosis Not Reportable 09/15/18 06:58 Macrocytosis Not Reportable 09/15/18 06:58 Spherocytes Not Reportable 09/15/18 06:58 Pappenheimer Bodies Not Reportable 09/15/18 06:58 Sickle Cells Not Reportable 09/15/18 06:58 Target Cells Not Reportable 09/15/18 06:58 Tear Drop Cells Not Reportable 09/15/18 06:58 Ovalocytes Not Reportable 09/15/18 06:58 Stomatocytes Few 09/13/18 04:41 Helmet Cells Not Reportable 09/15/18 06:58 [place] Bodies Not Reportable 09/15/18 06:58 [place] Rings Not Reportable 09/15/18 06:58 [place] Cells Not Reportable 09/15/18 06:58 Bite Cells Not Reportable 09/15/18 06:58 Crenated Cell Not Reportable 09/15/18 06:58 Elliptocytes Not Reportable 09/15/18 06:58 Acanthocytes (Spur) Not Reportable 09/15/18 06:58 Rouleaux Not Reportable 09/15/18 06:58 Hemoglobin C Crystals Not Reportable 09/15/18 06:58 Schistocytes Not Reportable 09/15/18 06:58 Malaria parasites Not Reportable 09/15/18 06:58 Tejinder Bodies Not Reportable 09/15/18 06:58 Hem Pathologist Commnt No 09/15/18 06:58 PT 13.2 Sec. (12.2-14.9) 09/14/18 13:25 INR 0.96 (0.87-1.13) 09/14/18 13:25 APTT 32.5 Sec. (24.2-36.6) 09/02/18 12:35 D-Dimer 4180.35 ng/mlDDU (0-234) H 09/02/18 12:35 POC ABG pH 7.534 (7.35-7.45) H 09/12/18 05:29 POC ABG pCO2 50.4 (35-45) H 09/12/18 05:29 POC ABG pO2 86 (80-105) 09/12/18 05:29 POC ABG HCO3 42.5 09/12/18 05:29 POC ABG Total CO2 44 09/12/18 05:29 POC ABG O2 Sat 97 09/12/18 05:29 POC ABG Base Excess 20 09/12/18 05:29 FiO2 40 % 09/12/18 05:29 Sodium 138 mmol/L (137-145) 09/15/18 06:58 Potassium 3.4 mmol/L (3.6-5.0) L 09/15/18 06:58 Chloride 95.9 mmol/L (98-107) L 09/15/18 06:58 Carbon Dioxide 35 mmol/L (22-30) H 09/15/18 06:58 Anion Gap 11 mmol/L 09/15/18 06:58 BUN 39 mg/dL (9-20) H 09/15/18 06:58 Creatinine 0.8 mg/dL (0.8-1.5) 09/15/18 06:58 Estimated GFR > 60 ml/min 09/15/18 06:58 BUN/Creatinine Ratio 49 % 09/15/18 06:58 Glucose 104 mg/dL (75-100) H 09/15/18 06:58 POC Glucose 95 (70-105) 09/15/18 11:58 Lactic Acid 1.40 mmol/L (0.7-2.0) 09/06/18 21:58 Calcium 9.7 mg/dL (8.4-10.2) 09/15/18 06:58 Magnesium 2.40 mg/dL (1.7-2.3) H 09/11/18 23:44 Total Bilirubin 0.70 mg/dL (0.1-1.2) 09/15/18 06:58 Direct Bilirubin < 0.2 mg/dL (0-0.2) 09/03/18 11:26 Indirect Bilirubin 0.3 mg/dL 09/02/18 13:36 AST 48 units/L (5-40) H 09/15/18 06:58 ALT 95 units/L (7-56) H 09/15/18 06:58 Alkaline Phosphatase 73 units/L (35-129) 09/15/18 06:58 Ammonia 58.0 umol/L (25-60) 09/06/18 05:10 Total Creatine Kinase 98 units/L (55-170) 09/02/18 13:36 Troponin T 0.018 ng/mL (0.00-0.029) 09/02/18 13:36 C-Reactive Protein 9.00 mg/dL (0.00-1.30) H 09/06/18 21:58 NT-Pro-B Natriuret Pep 873.7 pg/mL (0-900) 09/02/18 13:36 Total Protein 5.2 g/dL (6.3-8.2) L 09/15/18 06:58 Albumin 2.5 g/dL (3.9-5) L 09/15/18 06:58 Albumin/Globulin Ratio 0.9 % 09/15/18 06:58 Triglycerides 150 mg/dL (2-149) H 09/03/18 Unknown Cholesterol 116 mg/dL (50-199) 09/03/18 Unknown LDL Cholesterol Direct 69 mg/dL (50-130) 09/03/18 Unknown HDL Cholesterol 21 mg/dL (40-59) L 09/03/18 Unknown Cholesterol/HDL Ratio 5.52 % 09/03/18 Unknown Lipase 81 units/L (13-60) H 09/02/18 13:36 TSH < 0.005 mlU/mL (0.270-4.200) L 09/02/18 16:45 Free T4 2.40 ng/dL (0.76-1.46) H 09/02/18 16:45 Urine Color [place] (Yellow) 09/08/18 00:14 Urine Turbidity Cloudy (Clear) 09/08/18 00:14 Urine pH 5.0 (5.0-7.0) 09/08/18 00:14 Ur Specific [place] 1.019 (1.003-1.030) 09/08/18 00:14 Urine Protein 30 mg/dl mg/dL (Negative) 09/08/18 00:14 Urine Glucose (UA) Neg mg/dL (Negative) 09/08/18 00:14 Urine Ketones Neg mg/dL (Negative) 09/08/18 00:14 Urine Blood Lg (Negative) 09/08/18 00:14 Urine Nitrite Neg (Negative) 09/08/18 00:14 Urine Bilirubin Neg (Negative) 09/08/18 00:14 Urine Urobilinogen 4.0 mg/dL (<2.0) 09/08/18 00:14 Ur Leukocyte Esterase Neg (Negative) 09/08/18 00:14 Urine WBC (Auto) 41.0 /HPF (0.0-6.0) H 09/08/18 00:14 Urine RBC (Auto) > 182.0 /HPF (0.0-6.0) 09/08/18 00:14 U Epithel Cells (Auto) 8.0 /HPF (0-13.0) 09/08/18 00:14 Urine Bacteria (Auto) 2+ /HPF (Negative) 09/08/18 00:14 Ur Transition Epith Cell 1 /HPF 09/08/18 00:14 Amorphous Crystals 3+ 09/08/18 00:14 Hyaline Casts 99 /LPF 09/08/18 00:14 Urine Mucus 2+ /HPF 09/08/18 00:14 Salicylates < 0.3 mg/dL (2.8-20.0) L 09/02/18 12:35 Urine Opiates Screen Presumptive negative 09/02/18 13:59 Urine Methadone Screen Presumptive negative 09/02/18 13:59 Acetaminophen < 5.0 ug/mL (10.0-30.0) L 09/02/18 12:35 Ur Barbiturates Screen Presumptive negative 09/02/18 13:59 Ur Phencyclidine Scrn Presumptive negative 09/02/18 13:59 Ur Amphetamines Screen Presumptive negative 09/02/18 13:59 U Benzodiazepines Scrn Presumptive negative 09/02/18 13:59 Urine Cocaine Screen Presumptive negative 09/02/18 13:59 U Marijuana (THC) Screen Presumptive negative 09/02/18 13:59 Drugs of Abuse Note Disclamer 09/02/18 13:59 Plasma/Serum Alcohol < 0.01 % (0-0.07) 09/02/18 12:35 Nutrition/Malnutrition Assess - Dietary Evaluation Nutrition/Malnutrition Findings: Nutrition Notes Start: 09/06/18 15:28 Freq: Status: Active Protocol: Document 09/10/18 12:48 PROSPER (Rec: 09/10/18 12:49 PROSPER [id number]) Nutrition Notes Subjective/Other Information F/U date changed. Nutrition Intervention Follow-Up By: 09/17/18 Additional Comments F/U: stable TF, wt
--- NOTE | 2018-09-15 18:45 | Progress Note ---
Assessment and Plan Patient sleeping at this time on BIPAP BIPAP 16/8, FIO2 32%, Rate 16. Patients O2 saturation 97%. Patient tolerating BIPAP settings good. No acute respiratory distress. - Patient Problems (1) Obesity hypoventilation syndrome Current Visit: Yes Status: Acute Plan to address problem: Patient is on BIPAP 16/8, rate 16, FIO2 32% Albuterol/atrovent aerosol treatments q 6 hours. Continue I/V solumedrol. Continue S/C Lovenox. Continue prevacid. (2) Altered mental status Current Visit: Yes Status: Acute Plan to address problem: Mangement as per primary care and neurology. (3) Acute kidney injury Current Visit: Yes Status: Acute Plan to address problem: Management as per nephrology. (4) SIRS (systemic inflammatory response syndrome) Current Visit: Yes Status: Acute Plan to address problem: Patient is on steroids and also on other anti inflammatory medications. Subjective Date of service: 09/15/18 Principal diagnosis: Ac Hypoxemic Resp failure; AE-COPD; Pneumonia (Aspiration); Ac encephalopat Interval history: Patient sleeping at this time on BIPAP BIPAP 16/8, FIO2 32%, Rate 16. Patients O2 saturation 97%. Patient tolerating BIPAP settings good. No acute respiratory distress. Objective Vital Signs - 12hr 09/15/18 09/15/18 09/15/18 07:00 07:52 08:00 Temperature 97.8 F Pulse Rate 61 68 Pulse Rate [ 64 Anterior Bilateral Throughout] Respiratory 22 22 Rate Respiratory 18 Rate [Anterior Bilateral Throughout] Blood Pressure 121/65 126/70 O2 Sat by Pulse 96 97 96 Oximetry 09/15/18 09/15/18 09/15/18 08:02 08:12 09:00 Temperature Pulse Rate 61 Pulse Rate [ 62 Anterior Bilateral Throughout] Respiratory 26 H Rate Respiratory 20 Rate [Anterior Bilateral Throughout] Blood Pressure 110/66 O2 Sat by Pulse 95 96 Oximetry 09/15/18 09/15/18 09/15/18 10:00 11:00 12:00 Temperature 98.1 F Pulse Rate 64 65 66 Pulse Rate [ Anterior Bilateral Throughout] Respiratory 25 H 18 27 H Rate Respiratory Rate [Anterior Bilateral Throughout] Blood Pressure 116/58 121/65 143/85 O2 Sat by Pulse 95 94 93 Oximetry 09/15/18 09/15/18 09/15/18 13:00 14:00 14:51 Temperature Pulse Rate 63 64 Pulse Rate [ 64 Anterior Bilateral Throughout] Respiratory 24 26 H Rate Respiratory 20 Rate [Anterior Bilateral Throughout] Blood Pressure 125/73 123/77 O2 Sat by Pulse 92 91 Oximetry 09/15/18 09/15/18 09/15/18 15:00 15:02 16:00 Temperature 98.1 F Pulse Rate 65 64 Pulse Rate [ 66 Anterior Bilateral Throughout] Respiratory 23 22 Rate Respiratory 20 Rate [Anterior Bilateral Throughout] Blood Pressure 123/86 131/72 O2 Sat by Pulse 95 94 Oximetry 09/15/18 17:00 Temperature Pulse Rate 64 Pulse Rate [ Anterior Bilateral Throughout] Respiratory 16 Rate Respiratory Rate [Anterior Bilateral Throughout] Blood Pressure 130/81 O2 Sat by Pulse 96 Oximetry Constitutional: no acute distress, asleep, other (elderly looking CM, normocephalic and atraumatic sitting out of bed in a chair) Eyes: non-icteric ENT: oropharynx moist, other Neck: supple, no lymphadenopathy, no JVD, other (large neck circumference) Effort: mildly labored Ascultation: Bilateral: diminished breath sounds, rhonchi Percussion: Bilateral: not dull Cardiovascular: regular rate and rhythm, other (S1,S2, no murmurs, gallops or rubs) Gastrointestinal: normoactive bowel sounds, soft, non-tender, non-distended Integumentary: normal Extremities: no cyanosis, no edema, pink and warm, pulses normal Neurologic: non-focal exam, pupils equal and round, motor strength normal and, other (intention tremors) Psychiatric: other (unable to assess adequately) CBC and BMP: 09/16/18 06:55 09/16/18 06:43 ABG, PT/INR, D-dimer: ABG POC ABG pH 7.534 (7.35-7.45) H 09/12/18 05:29 POC ABG pCO2 50.4 (35-45) H 09/12/18 05:29 POC ABG pO2 86 (80-105) 09/12/18 05:29 POC ABG HCO3 42.5 09/12/18 05:29 POC ABG Total CO2 44 09/12/18 05:29 POC ABG O2 Sat 97 09/12/18 05:29 PT/INR, D-dimer PT 13.2 Sec. (12.2-14.9) 09/14/18 13:25 INR 0.96 (0.87-1.13) 09/14/18 13:25 D-Dimer 4180.35 ng/mlDDU (0-234) H 09/02/18 12:35 Abnormal lab findings: Abnormal Labs 09/02/18 09/02/18 09/02/18 12:35 12:35 12:35 WBC RBC 6.15 H Hgb 18.7 H Hct 57.7 H MCV RDW 15.5 H Plt Count Lymph % (Auto) 8.8 L Lymph # 0.9 L Seg Neutrophils % 83.2 H Seg Neuts % (Manual) Lymphocytes % (Manual) Seg Neutrophils # 8.9 H Seg Neutrophils # Man Lymphocytes # (Manual) PT 20.8 H INR 1.74 H D-Dimer 4180.35 H POC ABG pH POC ABG pCO2 POC ABG pO2 Sodium Potassium Chloride Carbon Dioxide BUN Creatinine Glucose POC Glucose Lactic Acid Calcium Magnesium Total Bilirubin Direct Bilirubin AST ALT Ammonia C-Reactive Protein Total Protein Albumin Triglycerides HDL Cholesterol Lipase TSH Free T4 Urine WBC (Auto) Salicylates < 0.3 L Acetaminophen 09/02/18 09/02/18 09/02/18 12:35 12:35 12:35 WBC RBC Hgb Hct MCV RDW Plt Count Lymph % (Auto) Lymph # Seg Neutrophils % Seg Neuts % (Manual) Lymphocytes % (Manual) Seg Neutrophils # Seg Neutrophils # Man Lymphocytes # (Manual) PT INR D-Dimer POC ABG pH POC ABG pCO2 POC ABG pO2 Sodium Potassium Chloride Carbon Dioxide BUN Creatinine Glucose POC Glucose 167 H Lactic Acid 3.20 H* Calcium Magnesium Total Bilirubin Direct Bilirubin AST ALT Ammonia C-Reactive Protein Total Protein Albumin Triglycerides HDL Cholesterol Lipase TSH Free T4 Urine WBC (Auto) Salicylates Acetaminophen < 5.0 L 09/02/18 09/02/18 09/02/18 13:36 14:40 16:45 WBC RBC Hgb Hct MCV RDW Plt Count Lymph % (Auto) Lymph # Seg Neutrophils % Seg Neuts % (Manual) Lymphocytes % (Manual) Seg Neutrophils # Seg Neutrophils # Man Lymphocytes # (Manual) PT INR D-Dimer POC ABG pH POC ABG pCO2 POC ABG pO2 Sodium 159 H Potassium Chloride 114.7 H Carbon Dioxide BUN 90 H Creatinine Glucose 172 H POC Glucose Lactic Acid 2.30 H* Calcium 10.8 H Magnesium Total Bilirubin Direct Bilirubin 0.3 H AST ALT Ammonia C-Reactive Protein Total Protein Albumin 2.6 L Triglycerides HDL Cholesterol Lipase 81 H TSH < 0.005 L Free T4 2.40 H Urine WBC (Auto) Salicylates Acetaminophen 09/03/18 09/03/18 09/03/18 11:26 11:26 11:26 WBC RBC Hgb Hct MCV RDW Plt Count Lymph % (Auto) Lymph # Seg Neutrophils % Seg Neuts % (Manual) Lymphocytes % (Manual) Seg Neutrophils # Seg Neutrophils # Man Lymphocytes # (Manual) PT 21.8 H INR 1.86 H D-Dimer POC ABG pH POC ABG pCO2 POC ABG pO2 Sodium 160 H Potassium Chloride 122.6 H Carbon Dioxide BUN 69 H Creatinine Glucose 127 H POC Glucose Lactic Acid Calcium Magnesium Total Bilirubin Direct Bilirubin AST ALT Ammonia C-Reactive Protein Total Protein Albumin 2.1 L Triglycerides HDL Cholesterol Lipase TSH Free T4 Urine WBC (Auto) Salicylates Acetaminophen 09/03/18 09/03/18 09/03/18 11:26 15:39 20:23 WBC RBC Hgb Hct MCV RDW Plt Count Lymph % (Auto) Lymph # Seg Neutrophils % Seg Neuts % (Manual) Lymphocytes % (Manual) Seg Neutrophils # Seg Neutrophils # Man Lymphocytes # (Manual) PT INR D-Dimer POC ABG pH POC ABG pCO2 POC ABG pO2 Sodium 160 H 160 H Potassium Chloride Carbon Dioxide BUN Creatinine Glucose POC Glucose Lactic Acid Calcium Magnesium Total Bilirubin Direct Bilirubin AST ALT Ammonia 75.0 H C-Reactive Protein Total Protein Albumin Triglycerides HDL Cholesterol Lipase TSH Free T4 Urine WBC (Auto) Salicylates Acetaminophen 09/03/18 09/04/18 09/04/18 Unknown 02:38 05:20 WBC RBC Hgb Hct MCV RDW Plt Count Lymph % (Auto) Lymph # Seg Neutrophils % Seg Neuts % (Manual) Lymphocytes % (Manual) Seg Neutrophils # Seg Neutrophils # Man Lymphocytes # (Manual) PT INR D-Dimer POC ABG pH POC ABG pCO2 POC ABG pO2 Sodium 160 H 166 H* Potassium Chloride 129.2 H Carbon Dioxide BUN 57 H Creatinine Glucose 137 H POC Glucose Lactic Acid Calcium Magnesium Total Bilirubin Direct Bilirubin AST ALT Ammonia C-Reactive Protein Total Protein 5.8 L Albumin 2.7 L Triglycerides 150 H HDL Cholesterol 21 L Lipase TSH Free T4 Urine WBC (Auto) Salicylates Acetaminophen 09/04/18 09/04/18 09/04/18 05:20 09:11 13:35 WBC RBC 5.12 H Hgb 15.5 H D 15.6 H Hct 48.0 H D 48.1 H MCV RDW 15.9 H Plt Count Lymph % (Auto) 11.8 L Lymph # 0.8 L Seg Neutrophils % 80.1 H Seg Neuts % (Manual) Lymphocytes % (Manual) Seg Neutrophils # Seg Neutrophils # Man Lymphocytes # (Manual) PT INR D-Dimer POC ABG pH POC ABG pCO2 POC ABG pO2 Sodium 166 H* Potassium Chloride Carbon Dioxide BUN Creatinine Glucose POC Glucose Lactic Acid Calcium Magnesium Total Bilirubin Direct Bilirubin AST ALT Ammonia C-Reactive Protein Total Protein Albumin Triglycerides HDL Cholesterol Lipase TSH Free T4 Urine WBC (Auto) Salicylates Acetaminophen 09/04/18 09/04/18 09/04/18 13:35 21:04 21:04 WBC RBC Hgb 16.9 H Hct 58.3 H D MCV RDW Plt Count Lymph % (Auto) Lymph # Seg Neutrophils % Seg Neuts % (Manual) Lymphocytes % (Manual) Seg Neutrophils # Seg Neutrophils # Man Lymphocytes # (Manual) PT INR D-Dimer POC ABG pH POC ABG pCO2 POC ABG pO2 Sodium 164 H* 159 H Potassium Chloride Carbon Dioxide BUN Creatinine Glucose POC Glucose Lactic Acid Calcium Magnesium Total Bilirubin Direct Bilirubin AST ALT Ammonia C-Reactive Protein Total Protein Albumin Triglycerides HDL Cholesterol Lipase TSH Free T4 Urine WBC (Auto) Salicylates Acetaminophen 09/05/18 09/05/18 09/05/18 01:11 02:51 03:17 WBC RBC Hgb Hct MCV RDW Plt Count Lymph % (Auto) Lymph # Seg Neutrophils % Seg Neuts % (Manual) Lymphocytes % (Manual) Seg Neutrophils # Seg Neutrophils # Man Lymphocytes # (Manual) PT INR D-Dimer POC ABG pH 7.340 L POC ABG pCO2 57.8 H POC ABG pO2 74 L Sodium 152 H Potassium Chloride Carbon Dioxide BUN Creatinine Glucose POC Glucose 116 H Lactic Acid Calcium Magnesium Total Bilirubin Direct Bilirubin AST ALT Ammonia C-Reactive Protein Total Protein Albumin Triglycerides HDL Cholesterol Lipase TSH Free T4 Urine WBC (Auto) Salicylates Acetaminophen 09/05/18 09/05/18 09/05/18 07:45 10:34 15:21 WBC RBC Hgb Hct MCV RDW Plt Count Lymph % (Auto) Lymph # Seg Neutrophils % Seg Neuts % (Manual) Lymphocytes % (Manual) Seg Neutrophils # Seg Neutrophils # Man Lymphocytes # (Manual) PT INR D-Dimer POC ABG pH POC ABG pCO2 POC ABG pO2 Sodium 156 H 153 H Potassium Chloride Carbon Dioxide BUN Creatinine Glucose POC Glucose Lactic Acid Calcium Magnesium Total Bilirubin Direct Bilirubin AST ALT Ammonia 61.0 H C-Reactive Protein Total Protein Albumin Triglycerides HDL Cholesterol Lipase TSH Free T4 Urine WBC (Auto) Salicylates Acetaminophen 09/06/18 09/06/18 09/06/18 05:10 05:10 08:43 WBC RBC 5.06 H Hgb Hct 47.8 H D MCV RDW 15.3 H Plt Count Lymph % (Auto) Lymph # Seg Neutrophils % Seg Neuts % (Manual) Lymphocytes % (Manual) Seg Neutrophils # Seg Neutrophils # Man Lymphocytes # (Manual) PT INR D-Dimer POC ABG pH POC ABG pCO2 POC ABG pO2 Sodium 155 H 150 H Potassium Chloride 117.0 H Carbon Dioxide BUN 36 H Creatinine Glucose 143 H POC Glucose Lactic Acid Calcium Magnesium Total Bilirubin Direct Bilirubin AST ALT Ammonia C-Reactive Protein Total Protein Albumin Triglycerides HDL Cholesterol Lipase TSH Free T4 Urine WBC (Auto) Salicylates Acetaminophen 09/06/18 09/06/18 09/06/18 13:21 15:11 16:23 WBC RBC Hgb Hct MCV RDW Plt Count Lymph % (Auto) Lymph # Seg Neutrophils % Seg Neuts % (Manual) Lymphocytes % (Manual) Seg Neutrophils # Seg Neutrophils # Man Lymphocytes # (Manual) PT INR D-Dimer POC ABG pH POC ABG pCO2 49.1 H POC ABG pO2 107 H Sodium 151 H Potassium Chloride Carbon Dioxide BUN Creatinine Glucose POC Glucose 120 H Lactic Acid Calcium Magnesium Total Bilirubin Direct Bilirubin AST ALT Ammonia C-Reactive Protein Total Protein Albumin Triglycerides HDL Cholesterol Lipase TSH Free T4 Urine WBC (Auto) Salicylates Acetaminophen 09/06/18 09/07/18 09/07/18 21:58 00:25 02:49 WBC RBC 5.32 H Hgb 16.1 H Hct 50.2 H MCV 95 H RDW 15.6 H Plt Count Lymph % (Auto) Lymph # Seg Neutrophils % Seg Neuts % (Manual) Lymphocytes % (Manual) Seg Neutrophils # Seg Neutrophils # Man Lymphocytes # (Manual) PT INR D-Dimer POC ABG pH POC ABG pCO2 POC ABG pO2 Sodium 150 H Potassium Chloride Carbon Dioxide BUN Creatinine Glucose POC Glucose Lactic Acid Calcium Magnesium Total Bilirubin Direct Bilirubin AST ALT Ammonia C-Reactive Protein 9.00 H Total Protein Albumin Triglycerides HDL Cholesterol Lipase TSH Free T4 Urine WBC (Auto) Salicylates Acetaminophen 09/07/18 09/07/18 09/07/18 02:49 03:43 09:17 WBC RBC Hgb Hct MCV RDW Plt Count Lymph % (Auto) Lymph # Seg Neutrophils % Seg Neuts % (Manual) Lymphocytes % (Manual) Seg Neutrophils # Seg Neutrophils # Man Lymphocytes # (Manual) PT INR D-Dimer POC ABG pH POC ABG pCO2 46.5 H POC ABG pO2 Sodium 149 H 155 H Potassium 5.2 H D Chloride 116.1 H Carbon Dioxide 21 L BUN 47 H Creatinine Glucose 122 H POC Glucose Lactic Acid Calcium Magnesium Total Bilirubin 1.80 H Direct Bilirubin AST 83 H ALT Ammonia C-Reactive Protein Total Protein Albumin 1.8 L Triglycerides HDL Cholesterol Lipase TSH Free T4 Urine WBC (Auto) Salicylates Acetaminophen 09/07/18 09/08/18 09/08/18 16:02 00:14 00:51 WBC RBC Hgb Hct MCV RDW Plt Count Lymph % (Auto) Lymph # Seg Neutrophils % Seg Neuts % (Manual) Lymphocytes % (Manual) Seg Neutrophils # Seg Neutrophils # Man Lymphocytes # (Manual) PT INR D-Dimer POC ABG pH POC ABG pCO2 POC ABG pO2 Sodium 156 H 154 H Potassium Chloride Carbon Dioxide BUN Creatinine Glucose POC Glucose Lactic Acid Calcium Magnesium Total Bilirubin Direct Bilirubin AST ALT Ammonia C-Reactive Protein Total Protein Albumin Triglycerides HDL Cholesterol Lipase TSH Free T4 Urine WBC (Auto) 41.0 H Salicylates Acetaminophen 09/08/18 09/08/18 09/08/18 04:22 04:22 04:46 WBC RBC Hgb Hct MCV 95 H RDW 15.3 H Plt Count Lymph % (Auto) Lymph # Seg Neutrophils % Seg Neuts % (Manual) Lymphocytes % (Manual) Seg Neutrophils # Seg Neutrophils # Man Lymphocytes # (Manual) PT INR D-Dimer POC ABG pH POC ABG pCO2 55.3 H POC ABG pO2 77 L Sodium 153 H Potassium 3.5 L D Chloride 114.8 H Carbon Dioxide BUN 69 H Creatinine Glucose 277 H POC Glucose Lactic Acid Calcium Magnesium Total Bilirubin Direct Bilirubin AST 44 H ALT Ammonia C-Reactive Protein Total Protein 5.6 L Albumin 2.4 L Triglycerides HDL Cholesterol Lipase TSH Free T4 Urine WBC (Auto) Salicylates Acetaminophen 09/08/18 09/08/18 09/08/18 08:40 12:03 15:43 WBC RBC Hgb Hct MCV RDW Plt Count Lymph % (Auto) Lymph # Seg Neutrophils % Seg Neuts % (Manual) Lymphocytes % (Manual) Seg Neutrophils # Seg Neutrophils # Man Lymphocytes # (Manual) PT INR D-Dimer POC ABG pH POC ABG pCO2 POC ABG pO2 Sodium 154 H 152 H Potassium Chloride Carbon Dioxide BUN Creatinine Glucose POC Glucose 186 H Lactic Acid Calcium Magnesium Total Bilirubin Direct Bilirubin AST ALT Ammonia C-Reactive Protein Total Protein Albumin Triglycerides HDL Cholesterol Lipase TSH Free T4 Urine WBC (Auto) Salicylates Acetaminophen 09/08/18 09/08/18 09/09/18 17:57 23:54 04:01 WBC RBC Hgb Hct MCV 95 H RDW 15.3 H Plt Count 130 L Lymph % (Auto) Lymph # Seg Neutrophils % Seg Neuts % (Manual) Lymphocytes % (Manual) Seg Neutrophils # Seg Neutrophils # Man Lymphocytes # (Manual) PT INR D-Dimer POC ABG pH POC ABG pCO2 POC ABG pO2 Sodium Potassium Chloride Carbon Dioxide BUN Creatinine Glucose POC Glucose 252 H 297 H Lactic Acid Calcium Magnesium Total Bilirubin Direct Bilirubin AST ALT Ammonia C-Reactive Protein Total Protein Albumin Triglycerides HDL Cholesterol Lipase TSH Free T4 Urine WBC (Auto) Salicylates Acetaminophen 09/09/18 09/09/18 09/09/18 04:01 04:33 05:32 WBC RBC Hgb Hct MCV RDW Plt Count Lymph % (Auto) Lymph # Seg Neutrophils % Seg Neuts % (Manual) Lymphocytes % (Manual) Seg Neutrophils # Seg Neutrophils # Man Lymphocytes # (Manual) PT INR D-Dimer POC ABG pH 7.267 L POC ABG pCO2 76.6 H POC ABG pO2 69 L Sodium 150 H Potassium Chloride 110.9 H Carbon Dioxide 32 H BUN 62 H Creatinine Glucose 220 H POC Glucose 196 H Lactic Acid Calcium 10.3 H Magnesium Total Bilirubin Direct Bilirubin AST ALT Ammonia C-Reactive Protein Total Protein Albumin Triglycerides HDL Cholesterol Lipase TSH Free T4 Urine WBC (Auto) Salicylates Acetaminophen 09/09/18 09/09/18 09/09/18 11:40 17:57 23:36 WBC RBC Hgb Hct MCV RDW Plt Count Lymph % (Auto) Lymph # Seg Neutrophils % Seg Neuts % (Manual) Lymphocytes % (Manual) Seg Neutrophils # Seg Neutrophils # Man Lymphocytes # (Manual) PT INR D-Dimer POC ABG pH POC ABG pCO2 POC ABG pO2 Sodium Potassium Chloride Carbon Dioxide BUN Creatinine Glucose POC Glucose 217 H 172 H 131 H Lactic Acid Calcium Magnesium Total Bilirubin Direct Bilirubin AST ALT Ammonia C-Reactive Protein Total Protein Albumin Triglycerides HDL Cholesterol Lipase TSH Free T4 Urine WBC (Auto) Salicylates Acetaminophen 09/10/18 09/10/18 09/10/18 05:07 05:07 05:51 WBC RBC Hgb Hct MCV RDW Plt Count 115 L Lymph % (Auto) Lymph # Seg Neutrophils % Seg Neuts % (Manual) 95.0 H Lymphocytes % (Manual) 3.0 L Seg Neutrophils # Seg Neutrophils # Man Lymphocytes # (Manual) 0.2 L PT INR D-Dimer POC ABG pH POC ABG pCO2 POC ABG pO2 Sodium 146 H Potassium Chloride Carbon Dioxide 33 H BUN 46 H Creatinine 0.7 L Glucose 174 H POC Glucose 169 H Lactic Acid Calcium 10.3 H Magnesium Total Bilirubin Direct Bilirubin AST ALT Ammonia C-Reactive Protein Total Protein Albumin Triglycerides HDL Cholesterol Lipase TSH Free T4 Urine WBC (Auto) Salicylates Acetaminophen 09/10/18 09/10/18 09/10/18 14:25 15:02 17:48 WBC RBC Hgb Hct MCV RDW Plt Count Lymph % (Auto) Lymph # Seg Neutrophils % Seg Neuts % (Manual) Lymphocytes % (Manual) Seg Neutrophils # Seg Neutrophils # Man Lymphocytes # (Manual) PT INR D-Dimer POC ABG pH POC ABG pCO2 62.6 H POC ABG pO2 Sodium Potassium Chloride Carbon Dioxide BUN Creatinine Glucose POC Glucose 240 H 185 H Lactic Acid Calcium Magnesium Total Bilirubin Direct Bilirubin AST ALT Ammonia C-Reactive Protein Total Protein Albumin Triglycerides HDL Cholesterol Lipase TSH Free T4 Urine WBC (Auto) Salicylates Acetaminophen 09/10/18 09/11/18 09/11/18 23:28 04:25 04:38 WBC RBC Hgb Hct MCV RDW Plt Count Lymph % (Auto) Lymph # Seg Neutrophils % Seg Neuts % (Manual) Lymphocytes % (Manual) Seg Neutrophils # Seg Neutrophils # Man Lymphocytes # (Manual) PT INR D-Dimer POC ABG pH 7.487 H POC ABG pCO2 52.3 H POC ABG pO2 61 L Sodium 146 H Potassium Chloride Carbon Dioxide 37 H BUN 38 H Creatinine Glucose 254 H POC Glucose 132 H Lactic Acid Calcium 10.7 H Magnesium Total Bilirubin Direct Bilirubin AST ALT Ammonia C-Reactive Protein Total Protein Albumin Triglycerides HDL Cholesterol Lipase TSH Free T4 Urine WBC (Auto) Salicylates Acetaminophen 09/11/18 09/11/18 09/11/18 05:09 11:58 17:54 WBC RBC Hgb Hct MCV RDW Plt Count Lymph % (Auto) Lymph # Seg Neutrophils % Seg Neuts % (Manual) Lymphocytes % (Manual) Seg Neutrophils # Seg Neutrophils # Man Lymphocytes # (Manual) PT INR D-Dimer POC ABG pH 7.538 H POC ABG pCO2 50.4 H POC ABG pO2 78 L Sodium Potassium Chloride Carbon Dioxide BUN Creatinine Glucose POC Glucose 190 H 126 H Lactic Acid Calcium Magnesium Total Bilirubin Direct Bilirubin AST ALT Ammonia C-Reactive Protein Total Protein Albumin Triglycerides HDL Cholesterol Lipase TSH Free T4 Urine WBC (Auto) Salicylates Acetaminophen 09/11/18 09/12/18 09/12/18 23:44 05:29 05:36 WBC RBC Hgb Hct MCV RDW Plt Count Lymph % (Auto) Lymph # Seg Neutrophils % Seg Neuts % (Manual) Lymphocytes % (Manual) Seg Neutrophils # Seg Neutrophils # Man Lymphocytes # (Manual) PT INR D-Dimer POC ABG pH 7.534 H POC ABG pCO2 50.4 H POC ABG pO2 Sodium Potassium Chloride Carbon Dioxide BUN Creatinine Glucose POC Glucose 119 H Lactic Acid Calcium Magnesium 2.40 H Total Bilirubin Direct Bilirubin AST ALT Ammonia C-Reactive Protein Total Protein Albumin Triglycerides HDL Cholesterol Lipase TSH Free T4 Urine WBC (Auto) Salicylates Acetaminophen 09/12/18 09/12/18 09/12/18 08:05 08:05 17:10 WBC 11.7 H RBC Hgb Hct MCV RDW Plt Count 124 L Lymph % (Auto) Lymph # Seg Neutrophils % Seg Neuts % (Manual) 89.0 H Lymphocytes % (Manual) 9.0 L Seg Neutrophils # Seg Neutrophils # Man 10.4 H Lymphocytes # (Manual) 1.1 L PT INR D-Dimer POC ABG pH POC ABG pCO2 POC ABG pO2 Sodium Potassium Chloride 97.1 L Carbon Dioxide 38 H BUN 34 H Creatinine 0.7 L Glucose 127 H POC Glucose 134 H Lactic Acid Calcium 10.3 H Magnesium Total Bilirubin Direct Bilirubin AST ALT Ammonia C-Reactive Protein Total Protein Albumin Triglycerides HDL Cholesterol Lipase TSH Free T4 Urine WBC (Auto) Salicylates Acetaminophen 09/13/18 09/13/18 09/13/18 00:09 04:41 04:41 WBC 11.5 H RBC 5.15 H Hgb Hct 47.2 H MCV RDW Plt Count 129 L Lymph % (Auto) Lymph # Seg Neutrophils % Seg Neuts % (Manual) 89.0 H Lymphocytes % (Manual) 5.0 L Seg Neutrophils # Seg Neutrophils # Man 10.2 H Lymphocytes # (Manual) 0.6 L PT INR D-Dimer POC ABG pH POC ABG pCO2 POC ABG pO2 Sodium Potassium Chloride 96.6 L Carbon Dioxide 34 H BUN 38 H Creatinine Glucose 197 H POC Glucose 149 H Lactic Acid Calcium Magnesium Total Bilirubin Direct Bilirubin AST ALT Ammonia C-Reactive Protein Total Protein Albumin Triglycerides HDL Cholesterol Lipase TSH Free T4 Urine WBC (Auto) Salicylates Acetaminophen 09/13/18 09/13/18 09/14/18 05:10 17:16 05:51 WBC RBC Hgb Hct MCV RDW Plt Count Lymph % (Auto) Lymph # Seg Neutrophils % Seg Neuts % (Manual) Lymphocytes % (Manual) Seg Neutrophils # Seg Neutrophils # Man Lymphocytes # (Manual) PT INR D-Dimer POC ABG pH POC ABG pCO2 POC ABG pO2 Sodium Potassium Chloride Carbon Dioxide BUN Creatinine Glucose POC Glucose 199 H 220 H 204 H Lactic Acid Calcium Magnesium Total Bilirubin Direct Bilirubin AST ALT Ammonia C-Reactive Protein Total Protein Albumin Triglycerides HDL Cholesterol Lipase TSH Free T4 Urine WBC (Auto) Salicylates Acetaminophen 09/14/18 09/14/18 09/15/18 11:32 17:17 06:58 WBC RBC Hgb Hct MCV RDW Plt Count 121 L Lymph % (Auto) Lymph # Seg Neutrophils % Seg Neuts % (Manual) 81.0 H Lymphocytes % (Manual) Seg Neutrophils # Seg Neutrophils # Man Lymphocytes # (Manual) PT INR D-Dimer POC ABG pH POC ABG pCO2 POC ABG pO2 Sodium Potassium Chloride Carbon Dioxide BUN Creatinine Glucose POC Glucose 149 H 170 H Lactic Acid Calcium Magnesium Total Bilirubin Direct Bilirubin AST ALT Ammonia C-Reactive Protein Total Protein Albumin Triglycerides HDL Cholesterol Lipase TSH Free T4 Urine WBC (Auto) Salicylates Acetaminophen 09/15/18 09/15/18 06:58 17:18 WBC RBC Hgb Hct MCV RDW Plt Count Lymph % (Auto) Lymph # Seg Neutrophils % Seg Neuts % (Manual) Lymphocytes % (Manual) Seg Neutrophils # Seg Neutrophils # Man Lymphocytes # (Manual) PT INR D-Dimer POC ABG pH POC ABG pCO2 POC ABG pO2 Sodium Potassium 3.4 L Chloride 95.9 L Carbon Dioxide 35 H BUN 39 H Creatinine Glucose 104 H POC Glucose 113 H Lactic Acid Calcium Magnesium Total Bilirubin Direct Bilirubin AST 48 H ALT 95 H Ammonia C-Reactive Protein Total Protein 5.2 L Albumin 2.5 L Triglycerides HDL Cholesterol Lipase TSH Free T4 Urine WBC (Auto) Salicylates Acetaminophen Allied health notes reviewed: RT
[2018-09-15] MEDS: CEPHULAC PO SCH (22:34)
[2018-09-15] MEDS: LANTUS SUB-Q SCH (22:35)
[2018-09-16] MEDS: DUONEB *Not for PRN Use IH SCH ×4 (02:56→19:16)
[2018-09-16] MEDS: HumaLOG SUB-Q SCH ×2 (06:56→14:10)
[2018-09-16 07:01] LABS: Hematocrit 45.2 % (35.5-45.6); Mean Corpuscular HGB Conc 33 % (32-34); Mean Corpuscular Volume 91 fl (84-94); Red Blood Count 4.98 M/mm3 (3.65-5.03); Red Cell Distribution Width 14.8 % (13.2-15.2)
[2018-09-16 07:23] LABS: Alanine Aminotransferase 114 units/L (7-56); Albumin 2.5 g/dL (3.9-5); BUN/Creatinine Ratio 49; Blood Urea Nitrogen 34 mg/dL (9-20); Calcium 9.4 mg/dL (8.4-10.2); Hemolysis Index 36
[2018-09-16] MEDS: COLACE FEEDTUBE SCH ×2 (09:01→22:56)
[2018-09-16] MEDS: GENTAMICIN 0.3% OPHTH SOLN OU SCH (09:01)
[2018-09-16] MEDS: HCTZ PO SCH (09:02)
[2018-09-16] MEDS: DELTASONE PO SCH (09:02)
[2018-09-16] MEDS: FLOMAX PO SCH (09:02)
[2018-09-16] MEDS: LOVENOX SUB-Q SCH (09:02)
[2018-09-16] MEDS: WELLBUTRIN PO SCH ×2 (09:03→22:56)
[2018-09-16] MEDS: PREVACID SOLUTAB FEEDTUBE SCH (09:03)
[2018-09-16] MEDS: PULMICORT IH SCH ×2 (09:17→19:16)
[2018-09-16] MEDS: BROVANA NEBU IH SCH ×2 (09:17→19:15)
[2018-09-16 09:41] LABS: Anisocytosis 1+; Basophils % (Manual) 0 % (0.0-1.8); Myelocytes # (Manual) 0.1 K/mm3; Platelet Estimate Consistent w Auto; Total Cells Counted 100
[2018-09-16 09:46] LABS: Platelet Count 99 K/mm3 (140-440)
--- NOTE | 2018-09-16 09:57 | Progress Note ---
Assessment and Plan - Patient Problems (1) Hypernatremia Current Visit: Yes Status: Acute Plan to address problem: Secondary to free water losses in the setting of decreased PO intake, now resolved. cont free water flushes 250cc q4hr via NGT (2) Acute renal failure Current Visit: Yes Status: Acute Plan to address problem: Overall renal function stable. Non-oliguric at present time based on I/O. Anaya placed for accurate I/O (3) Encephalopathy Current Visit: Yes Status: Acute Plan to address problem: Management per primary team. He is more awake this am but has had issues with agitation per nursing staff. (4) Hypercalcemia Current Visit: Yes Status: Acute Plan to address problem: due to dehydration, Ca improved on IVF Subjective Date of service: 09/16/18 Principal diagnosis: Ac Hypoxemic Resp failure; AE-COPD; Pneumonia (Aspiration); Ac encephalopat Interval history: Pt awake, alert, in no acute respiratory distress this AM Objective - Vital Signs Vital signs: Vital Signs - 12hr 09/15/18 09/15/18 09/16/18 22:00 23:00 00:00 Temperature 97 F L Pulse Rate 61 64 61 Pulse Rate [ Anterior Bilateral Throughout] Pulse Rate [ Bilateral] Respiratory 13 20 14 Rate Respiratory Rate [Anterior Bilateral Throughout] Respiratory Rate [Bilateral ] Blood Pressure 112/63 132/73 118/74 O2 Sat by Pulse 95 Oximetry 09/16/18 09/16/18 09/16/18 01:00 02:00 03:00 Temperature Pulse Rate 63 61 65 Pulse Rate [ 65 Anterior Bilateral Throughout] Pulse Rate [ Bilateral] Respiratory 24 14 24 Rate Respiratory 20 Rate [Anterior Bilateral Throughout] Respiratory Rate [Bilateral ] Blood Pressure 140/77 118/76 137/82 O2 Sat by Pulse 96 Oximetry 09/16/18 09/16/18 09/16/18 04:00 08:00 09:22 Temperature 97.0 F L 97.9 F Pulse Rate 64 Pulse Rate [ 71 Anterior Bilateral Throughout] Pulse Rate [ 69 Bilateral] Respiratory 11 L Rate Respiratory 17 Rate [Anterior Bilateral Throughout] Respiratory 16 Rate [Bilateral ] Blood Pressure 133/77 O2 Sat by Pulse 96 Oximetry - General Appearance General appearance: well-developed, appears stated age, chronically ill EENT: ATNC, PERRL, mucous membranes moist Neck: no JVD Respiratory: Present: Clear to Ascultation Cardiology: regular, S1S2 Gastrointestinal: normoactive bowel sounds Integumentary: no rash, other (no edema ) Neurologic: no focal deficit, alert and oriented x3, strength 5/5, CN 3-12 intact Psychiatric: mood/affect appropriate, cooperative - Lab 09/16/18 06:55 09/16/18 06:43 Most recent lab results Calcium 9.4 mg/dL (8.4-10.2) 09/16/18 06:43 Magnesium 2.40 mg/dL (1.7-2.3) H 09/11/18 23:44 Medications & Allergies - Medications Allergies/Adverse Reactions: Allergies No Known Allergies Allergy (Verified 09/02/18 13:48) Home Medications: Home Medications Medication Instructions Recorded Confirmed Last Taken Type Hydrochlorothiazide 25 mg PO DAILY 09/07/18 09/07/18 Unknown History Lisinopril 5 mg PO DAILY 09/07/18 09/07/18 Unknown History Rosuvastatin Calcium 40 mg PO DAILY 09/07/18 09/07/18 Unknown History Tamsulosin 0.4 mg PO DAILY 09/07/18 09/07/18 Unknown History metFORMIN 500 mg PO BID 09/07/18 09/07/18 Unknown History Active Medications: Generic Name Dose Route Start Last Admin Trade Name Freq PRN Reason Stop Dose Admin Acetaminophen 650 mg 09/02/18 15:03 Tylenol PO Q4H PRN Pain, Mild (1-3) Albuterol 2.5 mg 09/06/18 17:35 09/11/18 13:11 Proventil IH 2.5 mg Q4HRT PRN Administration Shortness Of Breath Albuterol/Ipratropium 1 ampul 09/06/18 17:35 09/16/18 09:17 Duoneb *Not For Prn Use* IH 1 ampul Q6HRT ROXY Administration Arformoterol Tartrate 15 mcg 09/06/18 20:45 09/16/18 09:17 Brovana Nebu IH 15 mcg Q12HRT ROXY Administration Atorvastatin Calcium 40 mg 09/02/18 22:00 09/15/18 22:36 Lipitor PO 40 mg QHS ROXY Administration Bisacodyl 10 mg 09/02/18 15:03 Dulcolax AR QDAY PRN Constipation Budesonide 0.5 mg 09/07/18 08:00 09/16/18 09:17 Pulmicort IH 0.5 mg Q12HRT ROXY Administration Bupropion HCl 150 mg 09/11/18 10:00 09/16/18 09:03 Wellbutrin PO 150 mg BID ROXY Administration Dextrose 50 ml 09/08/18 10:58 D50w (25gm) Syringe IV PRN PRN Hypoglycemia Docusate Sodium 100 mg 09/10/18 12:00 09/16/18 09:01 Colace FEEDTUBE 100 mg BID ROXY Administration Enoxaparin Sodium 40 mg 09/08/18 15:00 09/16/18 09:02 Lovenox SUB-Q 40 mg QDAY@1000 ROXY Administration Gentamicin Sulfate 1 drops 09/12/18 14:00 09/16/18 09:01 Gentamicin 0.3% Ophth Soln OU 09/16/18 13:59 1 drops Q4HR ROXY Administration Haloperidol Lactate 5 mg 09/09/18 14:18 09/14/18 05:45 Haldol IV 5 mg Q6H PRN Administration Agitation Hydrochlorothiazide 25 mg 09/12/18 14:30 09/16/18 09:02 Hctz PO 25 mg QDAY ROXY Administration Hydrocortisone Acetate 1 applic 09/04/18 16:00 09/15/18 22:33 Proctosol-Hc AR 1 applic Q8HR ROXY Administration Hydrophilic Ointment 1 applic 09/06/18 15:34 Vaseline Lip Therapy TP Q2H PRN Dry Lips Insulin Glargine 10 units 09/09/18 22:00 09/15/18 22:35 Lantus SUB-Q 10 units QHS ROXY Administration Insulin Human Lispro 0 unit 09/08/18 12:00 09/16/18 06:56 Humalog SUB-Q Not Given Q6HR [facility] Protocol Lactulose 20 gm 09/08/18 18:29 Cephulac PO Q6HR PRN Delerium Lactulose 20 gm 09/12/18 11:00 09/15/18 22:34 Cephulac PO 20 gm QHS ROXY Administration Lansoprazole 30 mg 09/08/18 10:00 09/16/18 09:03 Prevacid Solutab FEEDTUBE 30 mg QDAY ROXY Administration Magnesium Hydroxide 30 ml 09/02/18 15:03 Milk Of Magnesia PO Q4H PRN Constipation Metoclopramide HCl 10 mg 09/02/18 15:03 Reglan PO Q6H PRN Nausea And Vomiting Multi-Ingred Cream/Lotion/Oil/Oint 1 applic 09/06/18 15:34 Artificial Tears Ophth Oint OU Q4H PRN Dry Eye(s) Ondansetron HCl 4 mg 09/02/18 15:03 Zofran IV Q8H PRN Nausea And Vomiting Prednisone 10 mg 09/15/18 10:00 09/16/18 09:02 Deltasone PO 10 mg QDAY ROXY Administration Promethazine HCl 25 mg 09/02/18 15:03 Phenergan AR Q6H PRN Nausea And Vomiting Sodium Chloride 10 ml 09/02/18 15:03 Sodium Chloride Flush Syringe 10 Ml IV PRN PRN LINE FLUSH Tamsulosin HCl 0.4 mg 09/07/18 15:00 09/16/18 09:02 Flomax PO 0.4 mg QDAY ROXY Administration
--- NOTE | 2018-09-16 13:18 | Progress Note ---
Assessment and Plan Made the Patient sitting up in the chair by the side of the bed. Patient awake. On 2 litres O2. O2 saturation 94%. No acute respiratory distress.Patient goes on BIPAP during night time. - Patient Problems (1) Obesity hypoventilation syndrome Current Visit: Yes Status: Acute Plan to address problem: Patient is on BIPAP 16/8, rate 16, FIO2 32% O2 2 litres when he is not on BIPAP. Albuterol/atrovent aerosol treatments q 6 hours. Continue I/V solumedrol. Continue S/C Lovenox. Continue prevacid. Continue bed side physical therapy. (2) Altered mental status Current Visit: Yes Status: Acute Plan to address problem: Mangement as per primary care and neurology. (3) Acute kidney injury Current Visit: Yes Status: Acute Plan to address problem: Management as per nephrology. (4) SIRS (systemic inflammatory response syndrome) Current Visit: Yes Status: Acute Plan to address problem: Patient is on steroids and also on other anti inflammatory medications. Subjective Date of service: 09/16/18 Principal diagnosis: Ac Hypoxemic Resp failure; AE-COPD; Pneumonia (Aspiration); Ac encephalopat Interval history: Made the Patient sitting up in the chair by the side of the bed. Patient awake. On 2 litres O2. O2 saturation 94%. No acute respiratory distress.Patient goes on BIPAP during night time. Objective Vital Signs - 12hr 09/16/18 09/16/18 09/16/18 02:00 03:00 04:00 Temperature 97.0 F L Pulse Rate 61 65 64 Pulse Rate [ 65 Anterior Bilateral Throughout] Pulse Rate [ Bilateral] Respiratory 14 24 11 L Rate Respiratory 20 Rate [Anterior Bilateral Throughout] Respiratory Rate [Bilateral ] Blood Pressure 118/76 137/82 133/77 O2 Sat by Pulse Oximetry 09/16/18 09/16/18 09/16/18 05:00 06:00 07:00 Temperature Pulse Rate 65 67 63 Pulse Rate [ Anterior Bilateral Throughout] Pulse Rate [ Bilateral] Respiratory 13 15 21 Rate Respiratory Rate [Anterior Bilateral Throughout] Respiratory Rate [Bilateral ] Blood Pressure 133/77 121/69 121/69 O2 Sat by Pulse Oximetry 09/16/18 09/16/18 09/16/18 08:00 09:00 09:22 Temperature 97.9 F Pulse Rate 60 72 Pulse Rate [ 71 Anterior Bilateral Throughout] Pulse Rate [ 69 Bilateral] Respiratory 19 24 Rate Respiratory 17 Rate [Anterior Bilateral Throughout] Respiratory 16 Rate [Bilateral ] Blood Pressure 121/69 121/69 O2 Sat by Pulse 95 96 Oximetry 09/16/18 09/16/18 10:00 12:00 Temperature 98.6 F Pulse Rate 71 Pulse Rate [ Anterior Bilateral Throughout] Pulse Rate [ Bilateral] Respiratory 22 Rate Respiratory Rate [Anterior Bilateral Throughout] Respiratory Rate [Bilateral ] Blood Pressure 123/76 O2 Sat by Pulse 92 93 Oximetry Constitutional: no acute distress, alert, other (elderly looking CM, normoceph alic and atraumatic sitting out of bed in a chair) Eyes: non-icteric ENT: oropharynx moist, other Neck: supple, no lymphadenopathy, no JVD, other (large neck circumference) Effort: mildly labored Ascultation: Bilateral: diminished breath sounds, rhonchi Percussion: Bilateral: not dull Cardiovascular: regular rate and rhythm, other (S1,S2, no murmurs, gallops or rubs) Gastrointestinal: normoactive bowel sounds, soft, non-tender, non-distended Integumentary: normal Extremities: no cyanosis, no edema, pink and warm, pulses normal Neurologic: non-focal exam, pupils equal and round, motor strength normal and, other (intention tremors) Psychiatric: other (unable to assess adequately) CBC and BMP: 09/16/18 06:55 09/16/18 06:43 ABG, PT/INR, D-dimer: ABG POC ABG pH 7.534 (7.35-7.45) H 09/12/18 05:29 POC ABG pCO2 50.4 (35-45) H 09/12/18 05:29 POC ABG pO2 86 (80-105) 09/12/18 05:29 POC ABG HCO3 42.5 09/12/18 05:29 POC ABG Total CO2 44 09/12/18 05:29 POC ABG O2 Sat 97 09/12/18 05:29 PT/INR, D-dimer PT 13.2 Sec. (12.2-14.9) 09/14/18 13:25 INR 0.96 (0.87-1.13) 09/14/18 13:25 D-Dimer 4180.35 ng/mlDDU (0-234) H 09/02/18 12:35 Abnormal lab findings: Abnormal Labs 09/02/18 09/02/18 09/02/18 12:35 12:35 12:35 WBC RBC 6.15 H Hgb 18.7 H Hct 57.7 H MCV RDW 15.5 H Plt Count Lymph % (Auto) 8.8 L Lymph # 0.9 L Seg Neutrophils % 83.2 H Seg Neuts % (Manual) Lymphocytes % (Manual) Seg Neutrophils # 8.9 H Seg Neutrophils # Man Lymphocytes # (Manual) PT 20.8 H INR 1.74 H D-Dimer 4180.35 H POC ABG pH POC ABG pCO2 POC ABG pO2 Sodium Potassium Chloride Carbon Dioxide BUN Creatinine Glucose POC Glucose Lactic Acid Calcium Magnesium Total Bilirubin Direct Bilirubin AST ALT Ammonia C-Reactive Protein Total Protein Albumin Triglycerides HDL Cholesterol Lipase TSH Free T4 Urine WBC (Auto) Salicylates < 0.3 L Acetaminophen 09/02/18 09/02/18 09/02/18 12:35 12:35 12:35 WBC RBC Hgb Hct MCV RDW Plt Count Lymph % (Auto) Lymph # Seg Neutrophils % Seg Neuts % (Manual) Lymphocytes % (Manual) Seg Neutrophils # Seg Neutrophils # Man Lymphocytes # (Manual) PT INR D-Dimer POC ABG pH POC ABG pCO2 POC ABG pO2 Sodium Potassium Chloride Carbon Dioxide BUN Creatinine Glucose POC Glucose 167 H Lactic Acid 3.20 H* Calcium Magnesium Total Bilirubin Direct Bilirubin AST ALT Ammonia C-Reactive Protein Total Protein Albumin Triglycerides HDL Cholesterol Lipase TSH Free T4 Urine WBC (Auto) Salicylates Acetaminophen < 5.0 L 09/02/18 09/02/18 09/02/18 13:36 14:40 16:45 WBC RBC Hgb Hct MCV RDW Plt Count Lymph % (Auto) Lymph # Seg Neutrophils % Seg Neuts % (Manual) Lymphocytes % (Manual) Seg Neutrophils # Seg Neutrophils # Man Lymphocytes # (Manual) PT INR D-Dimer POC ABG pH POC ABG pCO2 POC ABG pO2 Sodium 159 H Potassium Chloride 114.7 H Carbon Dioxide BUN 90 H Creatinine Glucose 172 H POC Glucose Lactic Acid 2.30 H* Calcium 10.8 H Magnesium Total Bilirubin Direct Bilirubin 0.3 H AST ALT Ammonia C-Reactive Protein Total Protein Albumin 2.6 L Triglycerides HDL Cholesterol Lipase 81 H TSH < 0.005 L Free T4 2.40 H Urine WBC (Auto) Salicylates Acetaminophen 09/03/18 09/03/18 09/03/18 11:26 11:26 11:26 WBC RBC Hgb Hct MCV RDW Plt Count Lymph % (Auto) Lymph # Seg Neutrophils % Seg Neuts % (Manual) Lymphocytes % (Manual) Seg Neutrophils # Seg Neutrophils # Man Lymphocytes # (Manual) PT 21.8 H INR 1.86 H D-Dimer POC ABG pH POC ABG pCO2 POC ABG pO2 Sodium 160 H Potassium Chloride 122.6 H Carbon Dioxide BUN 69 H Creatinine Glucose 127 H POC Glucose Lactic Acid Calcium Magnesium Total Bilirubin Direct Bilirubin AST ALT Ammonia C-Reactive Protein Total Protein Albumin 2.1 L Triglycerides HDL Cholesterol Lipase TSH Free T4 Urine WBC (Auto) Salicylates Acetaminophen 09/03/18 09/03/18 09/03/18 11:26 15:39 20:23 WBC RBC Hgb Hct MCV RDW Plt Count Lymph % (Auto) Lymph # Seg Neutrophils % Seg Neuts % (Manual) Lymphocytes % (Manual) Seg Neutrophils # Seg Neutrophils # Man Lymphocytes # (Manual) PT INR D-Dimer POC ABG pH POC ABG pCO2 POC ABG pO2 Sodium 160 H 160 H Potassium Chloride Carbon Dioxide BUN Creatinine Glucose POC Glucose Lactic Acid Calcium Magnesium Total Bilirubin Direct Bilirubin AST ALT Ammonia 75.0 H C-Reactive Protein Total Protein Albumin Triglycerides HDL Cholesterol Lipase TSH Free T4 Urine WBC (Auto) Salicylates Acetaminophen 09/03/18 09/04/18 09/04/18 Unknown 02:38 05:20 WBC RBC Hgb Hct MCV RDW Plt Count Lymph % (Auto) Lymph # Seg Neutrophils % Seg Neuts % (Manual) Lymphocytes % (Manual) Seg Neutrophils # Seg Neutrophils # Man Lymphocytes # (Manual) PT INR D-Dimer POC ABG pH POC ABG pCO2 POC ABG pO2 Sodium 160 H 166 H* Potassium Chloride 129.2 H Carbon Dioxide BUN 57 H Creatinine Glucose 137 H POC Glucose Lactic Acid Calcium Magnesium Total Bilirubin Direct Bilirubin AST ALT Ammonia C-Reactive Protein Total Protein 5.8 L Albumin 2.7 L Triglycerides 150 H HDL Cholesterol 21 L Lipase TSH Free T4 Urine WBC (Auto) Salicylates Acetaminophen 09/04/18 09/04/18 09/04/18 05:20 09:11 13:35 WBC RBC 5.12 H Hgb 15.5 H D 15.6 H Hct 48.0 H D 48.1 H MCV RDW 15.9 H Plt Count Lymph % (Auto) 11.8 L Lymph # 0.8 L Seg Neutrophils % 80.1 H Seg Neuts % (Manual) Lymphocytes % (Manual) Seg Neutrophils # Seg Neutrophils # Man Lymphocytes # (Manual) PT INR D-Dimer POC ABG pH POC ABG pCO2 POC ABG pO2 Sodium 166 H* Potassium Chloride Carbon Dioxide BUN Creatinine Glucose POC Glucose Lactic Acid Calcium Magnesium Total Bilirubin Direct Bilirubin AST ALT Ammonia C-Reactive Protein Total Protein Albumin Triglycerides HDL Cholesterol Lipase TSH Free T4 Urine WBC (Auto) Salicylates Acetaminophen 09/04/18 09/04/18 09/04/18 13:35 21:04 21:04 WBC RBC Hgb 16.9 H Hct 58.3 H D MCV RDW Plt Count Lymph % (Auto) Lymph # Seg Neutrophils % Seg Neuts % (Manual) Lymphocytes % (Manual) Seg Neutrophils # Seg Neutrophils # Man Lymphocytes # (Manual) PT INR D-Dimer POC ABG pH POC ABG pCO2 POC ABG pO2 Sodium 164 H* 159 H Potassium Chloride Carbon Dioxide BUN Creatinine Glucose POC Glucose Lactic Acid Calcium Magnesium Total Bilirubin Direct Bilirubin AST ALT Ammonia C-Reactive Protein Total Protein Albumin Triglycerides HDL Cholesterol Lipase TSH Free T4 Urine WBC (Auto) Salicylates Acetaminophen 09/05/18 09/05/18 09/05/18 01:11 02:51 03:17 WBC RBC Hgb Hct MCV RDW Plt Count Lymph % (Auto) Lymph # Seg Neutrophils % Seg Neuts % (Manual) Lymphocytes % (Manual) Seg Neutrophils # Seg Neutrophils # Man Lymphocytes # (Manual) PT INR D-Dimer POC ABG pH 7.340 L POC ABG pCO2 57.8 H POC ABG pO2 74 L Sodium 152 H Potassium Chloride Carbon Dioxide BUN Creatinine Glucose POC Glucose 116 H Lactic Acid Calcium Magnesium Total Bilirubin Direct Bilirubin AST ALT Ammonia C-Reactive Protein Total Protein Albumin Triglycerides HDL Cholesterol Lipase TSH Free T4 Urine WBC (Auto) Salicylates Acetaminophen 09/05/18 09/05/18 09/05/18 07:45 10:34 15:21 WBC RBC Hgb Hct MCV RDW Plt Count Lymph % (Auto) Lymph # Seg Neutrophils % Seg Neuts % (Manual) Lymphocytes % (Manual) Seg Neutrophils # Seg Neutrophils # Man Lymphocytes # (Manual) PT INR D-Dimer POC ABG pH POC ABG pCO2 POC ABG pO2 Sodium 156 H 153 H Potassium Chloride Carbon Dioxide BUN Creatinine Glucose POC Glucose Lactic Acid Calcium Magnesium Total Bilirubin Direct Bilirubin AST ALT Ammonia 61.0 H C-Reactive Protein Total Protein Albumin Triglycerides HDL Cholesterol Lipase TSH Free T4 Urine WBC (Auto) Salicylates Acetaminophen 09/06/18 09/06/18 09/06/18 05:10 05:10 08:43 WBC RBC 5.06 H Hgb Hct 47.8 H D MCV RDW 15.3 H Plt Count Lymph % (Auto) Lymph # Seg Neutrophils % Seg Neuts % (Manual) Lymphocytes % (Manual) Seg Neutrophils # Seg Neutrophils # Man Lymphocytes # (Manual) PT INR D-Dimer POC ABG pH POC ABG pCO2 POC ABG pO2 Sodium 155 H 150 H Potassium Chloride 117.0 H Carbon Dioxide BUN 36 H Creatinine Glucose 143 H POC Glucose Lactic Acid Calcium Magnesium Total Bilirubin Direct Bilirubin AST ALT Ammonia C-Reactive Protein Total Protein Albumin Triglycerides HDL Cholesterol Lipase TSH Free T4 Urine WBC (Auto) Salicylates Acetaminophen 09/06/18 09/06/18 09/06/18 13:21 15:11 16:23 WBC RBC Hgb Hct MCV RDW Plt Count Lymph % (Auto) Lymph # Seg Neutrophils % Seg Neuts % (Manual) Lymphocytes % (Manual) Seg Neutrophils # Seg Neutrophils # Man Lymphocytes # (Manual) PT INR D-Dimer POC ABG pH POC ABG pCO2 49.1 H POC ABG pO2 107 H Sodium 151 H Potassium Chloride Carbon Dioxide BUN Creatinine Glucose POC Glucose 120 H Lactic Acid Calcium Magnesium Total Bilirubin Direct Bilirubin AST ALT Ammonia C-Reactive Protein Total Protein Albumin Triglycerides HDL Cholesterol Lipase TSH Free T4 Urine WBC (Auto) Salicylates Acetaminophen 09/06/18 09/07/18 09/07/18 21:58 00:25 02:49 WBC RBC 5.32 H Hgb 16.1 H Hct 50.2 H MCV 95 H RDW 15.6 H Plt Count Lymph % (Auto) Lymph # Seg Neutrophils % Seg Neuts % (Manual) Lymphocytes % (Manual) Seg Neutrophils # Seg Neutrophils # Man Lymphocytes # (Manual) PT INR D-Dimer POC ABG pH POC ABG pCO2 POC ABG pO2 Sodium 150 H Potassium Chloride Carbon Dioxide BUN Creatinine Glucose POC Glucose Lactic Acid Calcium Magnesium Total Bilirubin Direct Bilirubin AST ALT Ammonia C-Reactive Protein 9.00 H Total Protein Albumin Triglycerides HDL Cholesterol Lipase TSH Free T4 Urine WBC (Auto) Salicylates Acetaminophen 09/07/18 09/07/18 09/07/18 02:49 03:43 09:17 WBC RBC Hgb Hct MCV RDW Plt Count Lymph % (Auto) Lymph # Seg Neutrophils % Seg Neuts % (Manual) Lymphocytes % (Manual) Seg Neutrophils # Seg Neutrophils # Man Lymphocytes # (Manual) PT INR D-Dimer POC ABG pH POC ABG pCO2 46.5 H POC ABG pO2 Sodium 149 H 155 H Potassium 5.2 H D Chloride 116.1 H Carbon Dioxide 21 L BUN 47 H Creatinine Glucose 122 H POC Glucose Lactic Acid Calcium Magnesium Total Bilirubin 1.80 H Direct Bilirubin AST 83 H ALT Ammonia C-Reactive Protein Total Protein Albumin 1.8 L Triglycerides HDL Cholesterol Lipase TSH Free T4 Urine WBC (Auto) Salicylates Acetaminophen 09/07/18 09/08/18 09/08/18 16:02 00:14 00:51 WBC RBC Hgb Hct MCV RDW Plt Count Lymph % (Auto) Lymph # Seg Neutrophils % Seg Neuts % (Manual) Lymphocytes % (Manual) Seg Neutrophils # Seg Neutrophils # Man Lymphocytes # (Manual) PT INR D-Dimer POC ABG pH POC ABG pCO2 POC ABG pO2 Sodium 156 H 154 H Potassium Chloride Carbon Dioxide BUN Creatinine Glucose POC Glucose Lactic Acid Calcium Magnesium Total Bilirubin Direct Bilirubin AST ALT Ammonia C-Reactive Protein Total Protein Albumin Triglycerides HDL Cholesterol Lipase TSH Free T4 Urine WBC (Auto) 41.0 H Salicylates Acetaminophen 09/08/18 09/08/18 09/08/18 04:22 04:22 04:46 WBC RBC Hgb Hct MCV 95 H RDW 15.3 H Plt Count Lymph % (Auto) Lymph # Seg Neutrophils % Seg Neuts % (Manual) Lymphocytes % (Manual) Seg Neutrophils # Seg Neutrophils # Man Lymphocytes # (Manual) PT INR D-Dimer POC ABG pH POC ABG pCO2 55.3 H POC ABG pO2 77 L Sodium 153 H Potassium 3.5 L D Chloride 114.8 H Carbon Dioxide BUN 69 H Creatinine Glucose 277 H POC Glucose Lactic Acid Calcium Magnesium Total Bilirubin Direct Bilirubin AST 44 H ALT Ammonia C-Reactive Protein Total Protein 5.6 L Albumin 2.4 L Triglycerides HDL Cholesterol Lipase TSH Free T4 Urine WBC (Auto) Salicylates Acetaminophen 09/08/18 09/08/18 09/08/18 08:40 12:03 15:43 WBC RBC Hgb Hct MCV RDW Plt Count Lymph % (Auto) Lymph # Seg Neutrophils % Seg Neuts % (Manual) Lymphocytes % (Manual) Seg Neutrophils # Seg Neutrophils # Man Lymphocytes # (Manual) PT INR D-Dimer POC ABG pH POC ABG pCO2 POC ABG pO2 Sodium 154 H 152 H Potassium Chloride Carbon Dioxide BUN Creatinine Glucose POC Glucose 186 H Lactic Acid Calcium Magnesium Total Bilirubin Direct Bilirubin AST ALT Ammonia C-Reactive Protein Total Protein Albumin Triglycerides HDL Cholesterol Lipase TSH Free T4 Urine WBC (Auto) Salicylates Acetaminophen 09/08/18 09/08/18 09/09/18 17:57 23:54 04:01 WBC RBC Hgb Hct MCV 95 H RDW 15.3 H Plt Count 130 L Lymph % (Auto) Lymph # Seg Neutrophils % Seg Neuts % (Manual) Lymphocytes % (Manual) Seg Neutrophils # Seg Neutrophils # Man Lymphocytes # (Manual) PT INR D-Dimer POC ABG pH POC ABG pCO2 POC ABG pO2 Sodium Potassium Chloride Carbon Dioxide BUN Creatinine Glucose POC Glucose 252 H 297 H Lactic Acid Calcium Magnesium Total Bilirubin Direct Bilirubin AST ALT Ammonia C-Reactive Protein Total Protein Albumin Triglycerides HDL Cholesterol Lipase TSH Free T4 Urine WBC (Auto) Salicylates Acetaminophen 09/09/18 09/09/18 09/09/18 04:01 04:33 05:32 WBC RBC Hgb Hct MCV RDW Plt Count Lymph % (Auto) Lymph # Seg Neutrophils % Seg Neuts % (Manual) Lymphocytes % (Manual) Seg Neutrophils # Seg Neutrophils # Man Lymphocytes # (Manual) PT INR D-Dimer POC ABG pH 7.267 L POC ABG pCO2 76.6 H POC ABG pO2 69 L Sodium 150 H Potassium Chloride 110.9 H Carbon Dioxide 32 H BUN 62 H Creatinine Glucose 220 H POC Glucose 196 H Lactic Acid Calcium 10.3 H Magnesium Total Bilirubin Direct Bilirubin AST ALT Ammonia C-Reactive Protein Total Protein Albumin Triglycerides HDL Cholesterol Lipase TSH Free T4 Urine WBC (Auto) Salicylates Acetaminophen 09/09/18 09/09/18 09/09/18 11:40 17:57 23:36 WBC RBC Hgb Hct MCV RDW Plt Count Lymph % (Auto) Lymph # Seg Neutrophils % Seg Neuts % (Manual) Lymphocytes % (Manual) Seg Neutrophils # Seg Neutrophils # Man Lymphocytes # (Manual) PT INR D-Dimer POC ABG pH POC ABG pCO2 POC ABG pO2 Sodium Potassium Chloride Carbon Dioxide BUN Creatinine Glucose POC Glucose 217 H 172 H 131 H Lactic Acid Calcium Magnesium Total Bilirubin Direct Bilirubin AST ALT Ammonia C-Reactive Protein Total Protein Albumin Triglycerides HDL Cholesterol Lipase TSH Free T4 Urine WBC (Auto) Salicylates Acetaminophen 09/10/18 09/10/18 09/10/18 05:07 05:07 05:51 WBC RBC Hgb Hct MCV RDW Plt Count 115 L Lymph % (Auto) Lymph # Seg Neutrophils % Seg Neuts % (Manual) 95.0 H Lymphocytes % (Manual) 3.0 L Seg Neutrophils # Seg Neutrophils # Man Lymphocytes # (Manual) 0.2 L PT INR D-Dimer POC ABG pH POC ABG pCO2 POC ABG pO2 Sodium 146 H Potassium Chloride Carbon Dioxide 33 H BUN 46 H Creatinine 0.7 L Glucose 174 H POC Glucose 169 H Lactic Acid Calcium 10.3 H Magnesium Total Bilirubin Direct Bilirubin AST ALT Ammonia C-Reactive Protein Total Protein Albumin Triglycerides HDL Cholesterol Lipase TSH Free T4 Urine WBC (Auto) Salicylates Acetaminophen 09/10/18 09/10/18 09/10/18 14:25 15:02 17:48 WBC RBC Hgb Hct MCV RDW Plt Count Lymph % (Auto) Lymph # Seg Neutrophils % Seg Neuts % (Manual) Lymphocytes % (Manual) Seg Neutrophils # Seg Neutrophils # Man Lymphocytes # (Manual) PT INR D-Dimer POC ABG pH POC ABG pCO2 62.6 H POC ABG pO2 Sodium Potassium Chloride Carbon Dioxide BUN Creatinine Glucose POC Glucose 240 H 185 H Lactic Acid Calcium Magnesium Total Bilirubin Direct Bilirubin AST ALT Ammonia C-Reactive Protein Total Protein Albumin Triglycerides HDL Cholesterol Lipase TSH Free T4 Urine WBC (Auto) Salicylates Acetaminophen 09/10/18 09/11/18 09/11/18 23:28 04:25 04:38 WBC RBC Hgb Hct MCV RDW Plt Count Lymph % (Auto) Lymph # Seg Neutrophils % Seg Neuts % (Manual) Lymphocytes % (Manual) Seg Neutrophils # Seg Neutrophils # Man Lymphocytes # (Manual) PT INR D-Dimer POC ABG pH 7.487 H POC ABG pCO2 52.3 H POC ABG pO2 61 L Sodium 146 H Potassium Chloride Carbon Dioxide 37 H BUN 38 H Creatinine Glucose 254 H POC Glucose 132 H Lactic Acid Calcium 10.7 H Magnesium Total Bilirubin Direct Bilirubin AST ALT Ammonia C-Reactive Protein Total Protein Albumin Triglycerides HDL Cholesterol Lipase TSH Free T4 Urine WBC (Auto) Salicylates Acetaminophen 09/11/18 09/11/18 09/11/18 05:09 11:58 17:54 WBC RBC Hgb Hct MCV RDW Plt Count Lymph % (Auto) Lymph # Seg Neutrophils % Seg Neuts % (Manual) Lymphocytes % (Manual) Seg Neutrophils # Seg Neutrophils # Man Lymphocytes # (Manual) PT INR D-Dimer POC ABG pH 7.538 H POC ABG pCO2 50.4 H POC ABG pO2 78 L Sodium Potassium Chloride Carbon Dioxide BUN Creatinine Glucose POC Glucose 190 H 126 H Lactic Acid Calcium Magnesium Total Bilirubin Direct Bilirubin AST ALT Ammonia C-Reactive Protein Total Protein Albumin Triglycerides HDL Cholesterol Lipase TSH Free T4 Urine WBC (Auto) Salicylates Acetaminophen 09/11/18 09/12/18 09/12/18 23:44 05:29 05:36 WBC RBC Hgb Hct MCV RDW Plt Count Lymph % (Auto) Lymph # Seg Neutrophils % Seg Neuts % (Manual) Lymphocytes % (Manual) Seg Neutrophils # Seg Neutrophils # Man Lymphocytes # (Manual) PT INR D-Dimer POC ABG pH 7.534 H POC ABG pCO2 50.4 H POC ABG pO2 Sodium Potassium Chloride Carbon Dioxide BUN Creatinine Glucose POC Glucose 119 H Lactic Acid Calcium Magnesium 2.40 H Total Bilirubin Direct Bilirubin AST ALT Ammonia C-Reactive Protein Total Protein Albumin Triglycerides HDL Cholesterol Lipase TSH Free T4 Urine WBC (Auto) Salicylates Acetaminophen 09/12/18 09/12/18 09/12/18 08:05 08:05 17:10 WBC 11.7 H RBC Hgb Hct MCV RDW Plt Count 124 L Lymph % (Auto) Lymph # Seg Neutrophils % Seg Neuts % (Manual) 89.0 H Lymphocytes % (Manual) 9.0 L Seg Neutrophils # Seg Neutrophils # Man 10.4 H Lymphocytes # (Manual) 1.1 L PT INR D-Dimer POC ABG pH POC ABG pCO2 POC ABG pO2 Sodium Potassium Chloride 97.1 L Carbon Dioxide 38 H BUN 34 H Creatinine 0.7 L Glucose 127 H POC Glucose 134 H Lactic Acid Calcium 10.3 H Magnesium Total Bilirubin Direct Bilirubin AST ALT Ammonia C-Reactive Protein Total Protein Albumin Triglycerides HDL Cholesterol Lipase TSH Free T4 Urine WBC (Auto) Salicylates Acetaminophen 09/13/18 09/13/18 09/13/18 00:09 04:41 04:41 WBC 11.5 H RBC 5.15 H Hgb Hct 47.2 H MCV RDW Plt Count 129 L Lymph % (Auto) Lymph # Seg Neutrophils % Seg Neuts % (Manual) 89.0 H Lymphocytes % (Manual) 5.0 L Seg Neutrophils # Seg Neutrophils # Man 10.2 H Lymphocytes # (Manual) 0.6 L PT INR D-Dimer POC ABG pH POC ABG pCO2 POC ABG pO2 Sodium Potassium Chloride 96.6 L Carbon Dioxide 34 H BUN 38 H Creatinine Glucose 197 H POC Glucose 149 H Lactic Acid Calcium Magnesium Total Bilirubin Direct Bilirubin AST ALT Ammonia C-Reactive Protein Total Protein Albumin Triglycerides HDL Cholesterol Lipase TSH Free T4 Urine WBC (Auto) Salicylates Acetaminophen 09/13/18 09/13/18 09/14/18 05:10 17:16 05:51 WBC RBC Hgb Hct MCV RDW Plt Count Lymph % (Auto) Lymph # Seg Neutrophils % Seg Neuts % (Manual) Lymphocytes % (Manual) Seg Neutrophils # Seg Neutrophils # Man Lymphocytes # (Manual) PT INR D-Dimer POC ABG pH POC ABG pCO2 POC ABG pO2 Sodium Potassium Chloride Carbon Dioxide BUN Creatinine Glucose POC Glucose 199 H 220 H 204 H Lactic Acid Calcium Magnesium Total Bilirubin Direct Bilirubin AST ALT Ammonia C-Reactive Protein Total Protein Albumin Triglycerides HDL Cholesterol Lipase TSH Free T4 Urine WBC (Auto) Salicylates Acetaminophen 09/14/18 09/14/18 09/15/18 11:32 17:17 06:58 WBC RBC Hgb Hct MCV RDW Plt Count 121 L Lymph % (Auto) Lymph # Seg Neutrophils % Seg Neuts % (Manual) 81.0 H Lymphocytes % (Manual) Seg Neutrophils # Seg Neutrophils # Man Lymphocytes # (Manual) PT INR D-Dimer POC ABG pH POC ABG pCO2 POC ABG pO2 Sodium Potassium Chloride Carbon Dioxide BUN Creatinine Glucose POC Glucose 149 H 170 H Lactic Acid Calcium Magnesium Total Bilirubin Direct Bilirubin AST ALT Ammonia C-Reactive Protein Total Protein Albumin Triglycerides HDL Cholesterol Lipase TSH Free T4 Urine WBC (Auto) Salicylates Acetaminophen 09/15/18 09/15/18 09/16/18 06:58 17:18 06:43 WBC RBC Hgb Hct MCV RDW Plt Count Lymph % (Auto) Lymph # Seg Neutrophils % Seg Neuts % (Manual) Lymphocytes % (Manual) Seg Neutrophils # Seg Neutrophils # Man Lymphocytes # (Manual) PT INR D-Dimer POC ABG pH POC ABG pCO2 POC ABG pO2 Sodium Potassium 3.4 L Chloride 95.9 L Carbon Dioxide 35 H 32 H BUN 39 H 34 H Creatinine 0.7 L Glucose 104 H POC Glucose 113 H Lactic Acid Calcium Magnesium Total Bilirubin Direct Bilirubin AST 48 H 59 H ALT 95 H 114 H Ammonia C-Reactive Protein Total Protein 5.2 L 5.2 L Albumin 2.5 L 2.5 L Triglycerides HDL Cholesterol Lipase TSH Free T4 Urine WBC (Auto) Salicylates Acetaminophen 09/16/18 09/16/18 06:55 11:57 WBC RBC Hgb Hct MCV RDW Plt Count 99 L Lymph % (Auto) Lymph # Seg Neutrophils % Seg Neuts % (Manual) 76.0 H Lymphocytes % (Manual) Seg Neutrophils # Seg Neutrophils # Man Lymphocytes # (Manual) 1.0 L PT INR D-Dimer POC ABG pH POC ABG pCO2 POC ABG pO2 Sodium Potassium Chloride Carbon Dioxide BUN Creatinine Glucose POC Glucose 180 H Lactic Acid Calcium Magnesium Total Bilirubin Direct Bilirubin AST ALT Ammonia C-Reactive Protein Total Protein Albumin Triglycerides HDL Cholesterol Lipase TSH Free T4 Urine WBC (Auto) Salicylates Acetaminophen Allied health notes reviewed: RT
--- NOTE | 2018-09-16 17:36 | Progress Note ---
Assessment and Plan Assessment and plan: 68 YO Male with Obesity Hypoventilation, COPD presents to ED for evaluation. Pt is confused, lethargic and unable to provide history. Pt history provided by his brother who is at bedside during exam and interview. As per brother, the patient has not returned phone calls over the past 4 days. As a result, the brother went to the home but the patient did not answer the door. Law Enforcement notified, and entry into the home was obtained. The patient was found down and covered in his own feces. Pt exhibited slurred speech, confusion. EMS notified and upon arrival, the patient was found to have a neurologic deficit. A code stroke was called, and the patient was transported to [facility]. Pt seen and evaluated in ED and found to have evidence of CVA as well as SIRS, Acidosis, and Encephalopathy. Pt admitted to telemetry and initiated on CVA protocol. He was intubated with concern for aspiration. Neurology consulted. Acute Metabolic encephalopathy - resolved - CT, MRI head negative for CVA Delirium - resolved Acute Hypoxic Respiratory failure, COPD exacerbation - Patient extubated on 09/11 - patient is off oxygen Hypernatremia - Resolved Rectal Bleed - Evaluated by GI and they decreased his due to hemorrhoid - H&H stable Aspiration Pneumonia - Finished antibiotics Obesity Hypoventilation syndrome - Oxygen support ETOH use disorder hYPOTHYRODISIM - On Synthroid Moderate Protien calorie Malnutrition - nutrition consult -Discontinue NG tube and start feeding as recommended by dietitian. Secondary Coagulopathy ?UNDERLYING LIVER DISEASE VS IATROGENIC MEDICATION - Supportive care Sepsis - Resolved Tobacco use disorder per hx; counsell when stable Patient is on folic cath is placed by urology. Dysphagia; on mechanical soft diet per ST. Diabetes mellitus - on basal and sliding scale insulin At this time pending discharge placement History Interval history: Patient seen and examined, he is sitting up in the bed. NG tube but much more awake and alert and oriented. Still very lethargic family member at the bedside. Hospitalist Physical - Physical exam Narrative exam: VITAL SIGNS: Reviewed. GENERAL: The patient appeared still with mild respiratory distress but improved compared to my last visit.. Vital signs as documented. HEAD: No signs of head trauma. EYES: Pupils are equal. Extraocular motions intact. EARS: Hearing grossly intact. MOUTH: Oropharynx is normal. NECK: No adenopathy, no JVD. CHEST: Chest with crackles breath sounds bilaterally. No wheezes, rales, or rhonchi. CARDIAC: Regular rate and rhythm. S1 and S2, without murmurs, gallops, or rubs. VASCULAR: No Edema. Peripheral pulses normal and equal in all extremities. ABDOMEN: Soft, without detectable tenderness. No sign of distention. No fco ound or guarding, and no masses palpated. Bowel Sounds normal. MUSCULOSKELETAL: Good range of motion of all major joints. Extremities without clubbing, cyanosis or edema. NEUROLOGIC EXAM: Alert and oriented x to person and place. No focal sensory or strength deficits. Speech normal. Follows commands. PSYCHIATRIC: Mood normal. SKIN: No rash or lesions. - Constitutional Vitals: Temp Pulse Resp BP Pulse Ox 98.6 F 77 21 131/95 93 09/16/18 12:00 09/16/18 14:00 09/16/18 14:00 09/16/18 14:00 09/16/18 14:00 General appearance: Present: mild distress, obese, disheveled Results - Labs CBC & Chem 7: 09/17/18 04:52 09/17/18 04:52 Labs: Laboratory Last Values WBC 7.3 K/mm3 (4.5-11.0) 09/16/18 06:55 RBC 4.98 M/mm3 (3.65-5.03) 09/16/18 06:55 Hgb 15.0 gm/dl (11.8-15.2) 09/16/18 06:55 Hct 45.2 % (35.5-45.6) 09/16/18 06:55 MCV 91 fl (84-94) 09/16/18 06:55 MCH 30 pg (28-32) 09/16/18 06:55 MCHC 33 % (32-34) 09/16/18 06:55 RDW 14.8 % (13.2-15.2) 09/16/18 06:55 Plt Count 99 K/mm3 (140-440) L 09/16/18 06:55 Lymph % (Auto) 11.8 % (13.4-35.0) L 09/04/18 05:20 [place] % (Auto) 6.8 % (0.0-7.3) 09/04/18 05:20 Eos % (Auto) 1.0 % (0.0-4.3) 09/04/18 05:20 Baso % (Auto) 0.3 % (0.0-1.8) 09/04/18 05:20 Lymph # 0.8 K/mm3 (1.2-5.4) L 09/04/18 05:20 [place] # 0.5 K/mm3 (0.0-0.8) 09/04/18 05:20 Eos # 0.1 K/mm3 (0.0-0.4) 09/04/18 05:20 Baso # 0.0 K/mm3 (0.0-0.1) 09/04/18 05:20 Add Manual Diff Complete 09/16/18 06:55 Total Counted 100 09/16/18 06:55 Seg Neutrophils % Horse Riding Coach Or Instructor 09/13/18 04:41 Seg Neuts % (Manual) 76.0 % (40.0-70.0) H 09/16/18 06:55 Band Neutrophils % 0 % 09/16/18 06:55 Lymphocytes % (Manual) 14.0 % (13.4-35.0) 09/16/18 06:55 Reactive Lymphs % (Man) 0 % 09/16/18 06:55 Monocytes % (Manual) 5.0 % (0.0-7.3) 09/16/18 06:55 Eosinophils % (Manual) 4.0 % (0.0-4.3) 09/16/18 06:55 Basophils % (Manual) 0 % (0.0-1.8) 09/16/18 06:55 Metamyelocytes % 0 % 09/16/18 06:55 Myelocytes % 1.0 % 09/16/18 06:55 Promyelocytes % 0 % 09/16/18 06:55 Blast Cells % 0 % 09/16/18 06:55 Nucleated RBC % Not Reportable 09/16/18 06:55 Seg Neutrophils # 5.5 K/mm3 (1.8-7.7) 09/04/18 05:20 Seg Neutrophils # Man 5.5 K/mm3 (1.8-7.7) 09/16/18 06:55 Band Neutrophils # 0.0 K/mm3 09/16/18 06:55 Lymphocytes # (Manual) 1.0 K/mm3 (1.2-5.4) L 09/16/18 06:55 Abs React Lymphs (Man) 0.0 K/mm3 09/16/18 06:55 Monocytes # (Manual) 0.4 K/mm3 (0.0-0.8) 09/16/18 06:55 Eosinophils # (Manual) 0.3 K/mm3 (0.0-0.4) 09/16/18 06:55 Basophils # (Manual) 0.0 K/mm3 (0.0-0.1) 09/16/18 06:55 Metamyelocytes # 0.0 K/mm3 09/16/18 06:55 Myelocytes # 0.1 K/mm3 09/16/18 06:55 Promyelocytes # 0.0 K/mm3 09/16/18 06:55 Blast Cells # 0.0 K/mm3 09/16/18 06:55 WBC Morphology Not Reportable 09/16/18 06:55 Hypersegmented Neuts Not Reportable 09/16/18 06:55 Hyposegmented Neuts Not Reportable 09/16/18 06:55 Hypogranular Neuts Not Reportable 09/16/18 06:55 Smudge Cells Not Reportable 09/16/18 06:55 Toxic Granulation Not Reportable 09/16/18 06:55 Toxic Vacuolation Not Reportable 09/16/18 06:55 Dohle Bodies Not Reportable 09/16/18 06:55 Pelger-Huet Anomaly Not Reportable 09/16/18 06:55 Tony Rods Not Reportable 09/16/18 06:55 Platelet Estimate Consistent w auto 09/16/18 06:55 Clumped Platelets Not Reportable 09/16/18 06:55 Plt Clumps, EDTA Not Reportable 09/16/18 06:55 Large Platelets Not Reportable 09/16/18 06:55 Giant Platelets Not Reportable 09/16/18 06:55 Platelet Satelliting Not Reportable 09/16/18 06:55 Plt Morphology Comment Not Reportable 09/16/18 06:55 RBC Morphology Not Reportable 09/16/18 06:55 Dimorphic RBCs Not Reportable 09/16/18 06:55 Polychromasia Few 09/16/18 06:55 Hypochromasia Not Reportable 09/16/18 06:55 Poikilocytosis Not Reportable 09/16/18 06:55 Anisocytosis 1+ 09/16/18 06:55 Microcytosis Not Reportable 09/16/18 06:55 Macrocytosis Not Reportable 09/16/18 06:55 Spherocytes Not Reportable 09/16/18 06:55 Pappenheimer Bodies Not Reportable 09/16/18 06:55 Sickle Cells Not Reportable 09/16/18 06:55 Target Cells Not Reportable 09/16/18 06:55 Tear Drop Cells Not Reportable 09/16/18 06:55 Ovalocytes Not Reportable 09/16/18 06:55 Stomatocytes Few 09/13/18 04:41 Helmet Cells Not Reportable 09/16/18 06:55 Viz[place]aino-Coldiron Bodies Not Reportable 09/16/18 06:55 [place] Rings Not Reportable 09/16/18 06:55 [place] Cells Not Reportable 09/16/18 06:55 Bite Cells Not Reportable 09/16/18 06:55 Crenated Cell Not Reportable 09/16/18 06:55 Elliptocytes Not Reportable 09/16/18 06:55 Acanthocytes (Spur) Not Reportable 09/16/18 06:55 Rouleaux Not Reportable 09/16/18 06:55 Hemoglobin C Crystals Not Reportable 09/16/18 06:55 Schistocytes Not Reportable 09/16/18 06:55 Malaria parasites Not Reportable 09/16/18 06:55 Tejinder Bodies Not Reportable 09/16/18 06:55 Hem Pathologist Commnt No 09/16/18 06:55 PT 13.2 Sec. (12.2-14.9) 09/14/18 13:25 INR 0.96 (0.87-1.13) 09/14/18 13:25 APTT 32.5 Sec. (24.2-36.6) 09/02/18 12:35 D-Dimer 4180.35 ng/mlDDU (0-234) H 09/02/18 12:35 POC ABG pH 7.534 (7.35-7.45) H 09/12/18 05:29 POC ABG pCO2 50.4 (35-45) H 09/12/18 05:29 POC ABG pO2 86 (80-105) 09/12/18 05:29 POC ABG HCO3 42.5 09/12/18 05:29 POC ABG Total CO2 44 09/12/18 05:29 POC ABG O2 Sat 97 09/12/18 05:29 POC ABG Base Excess 20 09/12/18 05:29 FiO2 40 % 09/12/18 05:29 Sodium 145 mmol/L (137-145) D 09/16/18 06:43 Potassium 4.8 mmol/L (3.6-5.0) D 09/16/18 06:43 Chloride 101.2 mmol/L (98-107) 09/16/18 06:43 Carbon Dioxide 32 mmol/L (22-30) H 09/16/18 06:43 Anion Gap 17 mmol/L 09/16/18 06:43 BUN 34 mg/dL (9-20) H 09/16/18 06:43 Creatinine 0.7 mg/dL (0.8-1.5) L 09/16/18 06:43 Estimated GFR > 60 ml/min 09/16/18 06:43 BUN/Creatinine Ratio 49 % 09/16/18 06:43 Glucose 93 mg/dL (75-100) 09/16/18 06:43 POC Glucose 180 (70-105) H 09/16/18 11:57 Lactic Acid 1.40 mmol/L (0.7-2.0) 09/06/18 21:58 Calcium 9.4 mg/dL (8.4-10.2) 09/16/18 06:43 Magnesium 2.40 mg/dL (1.7-2.3) H 09/11/18 23:44 Total Bilirubin 0.60 mg/dL (0.1-1.2) 09/16/18 06:43 Direct Bilirubin < 0.2 mg/dL (0-0.2) 09/03/18 11:26 Indirect Bilirubin 0.3 mg/dL 09/02/18 13:36 AST 59 units/L (5-40) H 09/16/18 06:43 ALT 114 units/L (7-56) H 09/16/18 06:43 Alkaline Phosphatase 88 units/L (35-129) 09/16/18 06:43 Ammonia 58.0 umol/L (25-60) 09/06/18 05:10 Total Creatine Kinase 98 units/L (55-170) 09/02/18 13:36 Troponin T 0.018 ng/mL (0.00-0.029) 09/02/18 13:36 C-Reactive Protein 9.00 mg/dL (0.00-1.30) H 09/06/18 21:58 NT-Pro-B Natriuret Pep 873.7 pg/mL (0-900) 09/02/18 13:36 Total Protein 5.2 g/dL (6.3-8.2) L 09/16/18 06:43 Albumin 2.5 g/dL (3.9-5) L 09/16/18 06:43 Albumin/Globulin Ratio 0.9 % 09/16/18 06:43 Triglycerides 150 mg/dL (2-149) H 09/03/18 Unknown Cholesterol 116 mg/dL (50-199) 09/03/18 Unknown LDL Cholesterol Direct 69 mg/dL (50-130) 09/03/18 Unknown HDL Cholesterol 21 mg/dL (40-59) L 09/03/18 Unknown Cholesterol/HDL Ratio 5.52 % 09/03/18 Unknown Lipase 81 units/L (13-60) H 09/02/18 13:36 TSH < 0.005 mlU/mL (0.270-4.200) L 09/02/18 16:45 Free T4 2.40 ng/dL (0.76-1.46) H 09/02/18 16:45 Urine Color [place] (Yellow) 09/08/18 00:14 Urine Turbidity Cloudy (Clear) 09/08/18 00:14 Urine pH 5.0 (5.0-7.0) 09/08/18 00:14 Ur Specific [place] 1.019 (1.003-1.030) 09/08/18 00:14 Urine Protein 30 mg/dl mg/dL (Negative) 09/08/18 00:14 Urine Glucose (UA) Neg mg/dL (Negative) 09/08/18 00:14 Urine Ketones Neg mg/dL (Negative) 09/08/18 00:14 Urine Blood Lg (Negative) 09/08/18 00:14 Urine Nitrite Neg (Negative) 09/08/18 00:14 Urine Bilirubin Neg (Negative) 09/08/18 00:14 Urine Urobilinogen 4.0 mg/dL (<2.0) 09/08/18 00:14 Ur Leukocyte Esterase Neg (Negative) 09/08/18 00:14 Urine WBC (Auto) 41.0 /HPF (0.0-6.0) H 09/08/18 00:14 Urine RBC (Auto) > 182.0 /HPF (0.0-6.0) 09/08/18 00:14 U Epithel Cells (Auto) 8.0 /HPF (0-13.0) 09/08/18 00:14 Urine Bacteria (Auto) 2+ /HPF (Negative) 09/08/18 00:14 Ur Transition Epith Cell 1 /HPF 09/08/18 00:14 Amorphous Crystals 3+ 09/08/18 00:14 Hyaline Casts 99 /LPF 09/08/18 00:14 Urine Mucus 2+ /HPF 09/08/18 00:14 Salicylates < 0.3 mg/dL (2.8-20.0) L 09/02/18 12:35 Urine Opiates Screen Presumptive negative 09/02/18 13:59 Urine Methadone Screen Presumptive negative 09/02/18 13:59 Acetaminophen < 5.0 ug/mL (10.0-30.0) L 09/02/18 12:35 Ur Barbiturates Screen Presumptive negative 09/02/18 13:59 Ur Phencyclidine Scrn Presumptive negative 09/02/18 13:59 Ur Amphetamines Screen Presumptive negative 09/02/18 13:59 U Benzodiazepines Scrn Presumptive negative 09/02/18 13:59 Urine Cocaine Screen Presumptive negative 09/02/18 13:59 U Marijuana (THC) Screen Presumptive negative 09/02/18 13:59 Drugs of Abuse Note Disclamer 09/02/18 13:59 Plasma/Serum Alcohol < 0.01 % (0-0.07) 09/02/18 12:35 Nutrition/Malnutrition Assess - Dietary Evaluation Nutrition/Malnutrition Findings: Nutrition Notes Start: 09/06/18 15:28 Freq: Status: Active Protocol: Document 09/10/18 12:48 PROSPER (Rec: 09/10/18 12:49 PROSPER [id number]) Nutrition Notes Subjective/Other Information F/U date changed. Nutrition Intervention Follow-Up By: 09/17/18 Additional Comments F/U: stable TF, wt
[2018-09-16] MEDS: PROCTOSOL-HC PR SCH (22:57)
[2018-09-16] MEDS: CEPHULAC PO SCH (22:57)
[2018-09-16] MEDS: LANTUS SUB-Q SCH (22:58)
[2018-09-17] MEDS: DUONEB *Not for PRN Use IH SCH ×4 (02:12→20:53)
[2018-09-17 05:13] LABS: Hematocrit 43.3 % (35.5-45.6); Hemoglobin 14.3 gm/dl (11.8-15.2); Mean Corpuscular HGB Conc 33 % (32-34); Mean Corpuscular Volume 91 fl (84-94); Platelet Count 112 K/mm3 (140-440); Red Blood Count 4.75 M/mm3 (3.65-5.03); Red Cell Distribution Width 14.8 % (13.2-15.2)
[2018-09-17 05:33] LABS: Alanine Aminotransferase 106 units/L (7-56); Albumin 2.4 g/dL (3.9-5); BUN/Creatinine Ratio 41; Blood Urea Nitrogen 29 mg/dL (9-20); Calcium 9.3 mg/dL (8.4-10.2); Hemolysis Index 23
[2018-09-17 05:43] LABS: Band Neutrophils # (Manual) 0.4 K/mm3; Basophils % (Manual) 0 % (0.0-1.8); Myelocytes # (Manual) 0.1 K/mm3; Total Cells Counted 100
[2018-09-17 05:44] LABS: Stomatocytes 1+
[2018-09-17] MEDS: HumaLOG SUB-Q SCH ×7 (07:03→22:16)
[2018-09-17] MEDS: PROCTOSOL-HC PR SCH ×3 (07:16→22:14)
[2018-09-17] MEDS: GENTAMICIN 0.3% OPHTH SOLN OU SCH (07:55)
[2018-09-17] MEDS ORDERED: K-DUR PO ONE (10:00)
--- NOTE | 2018-09-17 10:11 | Progress Note ---
Assessment and Plan - Patient Problems (1) Hypernatremia Current Visit: Yes Status: Acute Plan to address problem: Secondary to free water losses in the setting of decreased PO intake, now resolved. (2) Acute renal failure Current Visit: Yes Status: Acute Plan to address problem: Overall renal function stable. (3) Encephalopathy Current Visit: Yes Status: Acute Plan to address problem: Management per primary team. He is more awake this am but has had issues with agitation per nursing staff. (4) Hypercalcemia Current Visit: Yes Status: Acute Plan to address problem: due to dehydration, Ca improved with adequate hydration (5) Hypokalemia Current Visit: Yes Status: Acute Plan to address problem: supplementation with KDur Subjective Date of service: 09/17/18 Principal diagnosis: Ac Hypoxemic Resp failure; AE-COPD; Pneumonia (Aspiration); Ac encephalopat Interval history: Pt awake, alert, in no acute respiratory distress this AM Objective - Vital Signs Vital signs: Vital Signs - 12hr 09/16/18 09/16/18 09/17/18 23:00 23:56 00:00 Temperature 98.2 F Pulse Rate 66 165 H Pulse Rate [ Anterior Bilateral Throughout] Respiratory 18 19 Rate Respiratory Rate [Anterior Bilateral Throughout] Blood Pressure 125/80 118/75 O2 Sat by Pulse 96 96 Oximetry 09/17/18 09/17/18 09/17/18 01:00 02:00 02:12 Temperature Pulse Rate 66 63 Pulse Rate [ 66 Anterior Bilateral Throughout] Respiratory 13 22 Rate Respiratory 16 Rate [Anterior Bilateral Throughout] Blood Pressure 112/65 126/74 O2 Sat by Pulse 96 97 Oximetry 09/17/18 09/17/18 09/17/18 02:21 03:00 04:00 Temperature 97.8 F Pulse Rate 65 64 Pulse Rate [ 68 Anterior Bilateral Throughout] Respiratory 16 15 Rate Respiratory 16 Rate [Anterior Bilateral Throughout] Blood Pressure 104/67 104/67 O2 Sat by Pulse 99 95 Oximetry 09/17/18 09/17/18 09/17/18 05:00 06:00 07:00 Temperature Pulse Rate 62 65 59 L Pulse Rate [ Anterior Bilateral Throughout] Respiratory 24 20 20 Rate Respiratory Rate [Anterior Bilateral Throughout] Blood Pressure 137/62 137/62 125/69 O2 Sat by Pulse 92 90 96 Oximetry 09/17/18 09/17/18 08:00 09:00 Temperature 98 F Pulse Rate 61 67 Pulse Rate [ Anterior Bilateral Throughout] Respiratory 23 17 Rate Respiratory Rate [Anterior Bilateral Throughout] Blood Pressure 119/58 130/82 O2 Sat by Pulse 91 95 Oximetry - General Appearance General appearance: well-developed, well-nourished, appears stated age EENT: ATNC, PERRL, mucous membranes moist Neck: no JVD Respiratory: Present: Clear to Ascultation Cardiology: regular, S1S2 Gastrointestinal: normoactive bowel sounds Integumentary: no rash, other (no edema ) Neurologic: no focal deficit, alert and oriented x3, strength 5/5, CN 3-12 intact Psychiatric: mood/affect appropriate, cooperative - Lab 09/17/18 04:52 09/17/18 04:52 Most recent lab results Calcium 9.3 mg/dL (8.4-10.2) 09/17/18 04:52 Magnesium 2.40 mg/dL (1.7-2.3) H 09/11/18 23:44 Medications & Allergies - Medications Allergies/Adverse Reactions: Allergies No Known Allergies Allergy (Verified 09/02/18 13:48) Home Medications: Home Medications Medication Instructions Recorded Confirmed Last Taken Type Hydrochlorothiazide 25 mg PO DAILY 09/07/18 09/07/18 Unknown History Lisinopril 5 mg PO DAILY 09/07/18 09/07/18 Unknown History Rosuvastatin Calcium 40 mg PO DAILY 09/07/18 09/07/18 Unknown History Tamsulosin 0.4 mg PO DAILY 09/07/18 09/07/18 Unknown History metFORMIN 500 mg PO BID 09/07/18 09/07/18 Unknown History Active Medications: Generic Name Dose Route Start Last Admin Trade Name Freq PRN Reason Stop Dose Admin Acetaminophen 650 mg 09/02/18 15:03 Tylenol PO Q4H PRN Pain, Mild (1-3) Albuterol 2.5 mg 09/06/18 17:35 09/11/18 13:11 Proventil IH 2.5 mg Q4HRT PRN Administration Shortness Of Breath Albuterol/Ipratropium 1 ampul 09/06/18 17:35 09/17/18 02:12 Duoneb *Not For Prn Use* IH 1 ampul Q6HRT ROXY Administration Arformoterol Tartrate 15 mcg 09/06/18 20:45 09/16/18 19:15 Brovana Nebu IH 15 mcg Q12HRT ROXY Administration Atorvastatin Calcium 40 mg 09/02/18 22:00 09/16/18 22:56 Lipitor PO 40 mg QHS ROXY Administration Bisacodyl 10 mg 09/02/18 15:03 Dulcolax IL QDAY PRN Constipation Budesonide 0.5 mg 09/07/18 08:00 09/16/18 19:16 Pulmicort IH 0.5 mg Q12HRT ROXY Administration Bupropion HCl 150 mg 09/11/18 10:00 09/16/18 22:56 Wellbutrin PO 150 mg BID ROXY Administration Dextrose 50 ml 09/08/18 10:58 D50w (25gm) Syringe IV PRN PRN Hypoglycemia Docusate Sodium 100 mg 09/10/18 12:00 09/16/18 22:56 Colace FEEDTUBE 100 mg BID ROXY Administration Enoxaparin Sodium 40 mg 09/08/18 15:00 09/16/18 09:02 Lovenox SUB-Q 40 mg QDAY@1000 ROXY Administration Haloperidol Lactate 5 mg 09/09/18 14:18 09/14/18 05:45 Haldol IV 5 mg Q6H PRN Administration Agitation Hydrochlorothiazide 25 mg 09/12/18 14:30 09/16/18 09:02 Hctz PO 25 mg QDAY ROXY Administration Hydrocortisone Acetate 1 applic 09/04/18 16:00 09/17/18 07:55 Proctosol-Hc IL Not Given Q8HR [facility] Hydrophilic Ointment 1 applic 09/06/18 15:34 Vaseline Lip Therapy TP Q2H PRN Dry Lips Insulin Glargine 10 units 09/09/18 22:00 09/16/18 22:58 Lantus SUB-Q 10 units QHS [facility] Administration Insulin Human Lispro 0 unit 09/08/18 12:00 09/17/18 07:55 Humalog SUB-Q Not Given Q6HR [facility] Protocol Lactulose 20 gm 09/08/18 18:29 Cephulac PO Q6HR PRN Delerium Lactulose 20 gm 09/12/18 11:00 09/16/18 22:57 Cephulac PO 20 gm QHS ROXY Administration Lansoprazole 30 mg 09/08/18 10:00 09/16/18 09:03 Prevacid Solutab FEEDTUBE 30 mg QDAY ROXY Administration Magnesium Hydroxide 30 ml 09/02/18 15:03 Milk Of Magnesia PO Q4H PRN Constipation Metoclopramide HCl 10 mg 09/02/18 15:03 Reglan PO Q6H PRN Nausea And Vomiting Multi-Ingred Cream/Lotion/Oil/Oint 1 applic 09/06/18 15:34 Artificial Tears Ophth Oint OU Q4H PRN Dry Eye(s) Ondansetron HCl 4 mg 09/02/18 15:03 Zofran IV Q8H PRN Nausea And Vomiting Potassium Chloride 40 meq 09/17/18 10:00 K-Dur PO 09/17/18 10:01 ONCE ONE Prednisone 10 mg 09/15/18 10:00 09/16/18 09:02 Deltasone PO 10 mg QDAY ROXY Administration Promethazine HCl 25 mg 09/02/18 15:03 Phenergan IL Q6H PRN Nausea And Vomiting Sodium Chloride 10 ml 09/02/18 15:03 Sodium Chloride Flush Syringe 10 Ml IV PRN PRN LINE FLUSH Tamsulosin HCl 0.4 mg 09/07/18 15:00 09/16/18 09:02 Flomax PO 0.4 mg QDAY ROXY Administration
[2018-09-17] MEDS: DELTASONE PO SCH (10:49)
[2018-09-17] MEDS: COLACE FEEDTUBE SCH ×2 (10:49→22:15)
[2018-09-17] MEDS: FLOMAX PO SCH (10:49)
[2018-09-17] MEDS: WELLBUTRIN PO SCH ×2 (10:50→22:17)
[2018-09-17] MEDS: HCTZ PO SCH (10:50)
[2018-09-17] MEDS: PREVACID SOLUTAB FEEDTUBE SCH (10:50)
[2018-09-17] MEDS: LOVENOX SUB-Q SCH (10:50)
[2018-09-17] MEDS: PULMICORT IH SCH ×2 (11:37→20:20)
[2018-09-17] MEDS: BROVANA NEBU IH SCH ×2 (11:37→20:20)
--- NOTE | 2018-09-17 13:21 | Progress Note ---
Assessment and Plan Patient awake and resting in the bed. On 2 litres O2. O2 saturation 97%. No acute respiratory distress.Patient goes on BIPAP during night time.Continue physical therapy. - Patient Problems (1) Obesity hypoventilation syndrome Current Visit: Yes Status: Acute Plan to address problem: Patient is on BIPAP 16/8, rate 16, FIO2 32% O2 2 litres when he is not on BIPAP. Albuterol/atrovent aerosol treatments q 6 hours. Continue I/V solumedrol. Continue S/C Lovenox. Continue prevacid. Continue physical therapy. (2) Altered mental status Current Visit: Yes Status: Acute Plan to address problem: Mangement as per primary care and neurology. (3) Acute kidney injury Current Visit: Yes Status: Acute Plan to address problem: Management as per nephrology. (4) SIRS (systemic inflammatory response syndrome) Current Visit: Yes Status: Acute Plan to address problem: Patient is on steroids and also on other anti inflammatory medications. Subjective Date of service: 09/17/18 Principal diagnosis: Ac Hypoxemic Resp failure; AE-COPD; Pneumonia (Aspiration); Ac encephalopat Interval history: Patient awake and resting in the bed. On 2 litres O2. O2 saturation 97%. No acute respiratory distress.Patient goes on BIPAP during night time.Continue physical therapy. Objective Vital Signs - 12hr 09/17/18 09/17/18 09/17/18 02:00 02:12 02:21 Temperature Pulse Rate 63 Pulse Rate [ 66 68 Anterior Bilateral Throughout] Respiratory 22 Rate Respiratory 16 16 Rate [Anterior Bilateral Throughout] Blood Pressure 126/74 O2 Sat by Pulse 97 Oximetry 09/17/18 09/17/18 09/17/18 03:00 04:00 05:00 Temperature 97.8 F Pulse Rate 65 64 62 Pulse Rate [ Anterior Bilateral Throughout] Respiratory 16 15 24 Rate Respiratory Rate [Anterior Bilateral Throughout] Blood Pressure 104/67 104/67 137/62 O2 Sat by Pulse 99 95 92 Oximetry 09/17/18 09/17/18 09/17/18 06:00 07:00 08:00 Temperature 98 F Pulse Rate 65 59 L 61 Pulse Rate [ Anterior Bilateral Throughout] Respiratory 20 20 23 Rate Respiratory Rate [Anterior Bilateral Throughout] Blood Pressure 137/62 125/69 119/58 O2 Sat by Pulse 90 96 91 Oximetry 09/17/18 09/17/1809/17/19 09:00 10:00 11:00 Temperature Pulse Rate 67 74 73 Pulse Rate [ Anterior Bilateral Throughout] Respiratory 17 13 20 Rate Respiratory Rate [Anterior Bilateral Throughout] Blood Pressure 130/82 141/93 158/106 O2 Sat by Pulse 95 96 95 Oximetry 09/17/18 09/17/18 12:00 13:00 Temperature 97.8 F Pulse Rate 64 Pulse Rate [ Anterior Bilateral Throughout] Respiratory 12 18 Rate Respiratory Rate [Anterior Bilateral Throughout] Blood Pressure 158/106 158/106 O2 Sat by Pulse 97 97 Oximetry Constitutional: no acute distress, alert Eyes: non-icteric ENT: oropharynx moist, other Neck: supple, no lymphadenopathy, no JVD, other (large neck circumference) Effort: mildly labored Ascultation: Bilateral: diminished breath sounds, rhonchi Percussion: Bilateral: not dull Cardiovascular: regular rate and rhythm, other (S1,S2, no murmurs, gallops or rubs) Gastrointestinal: normoactive bowel sounds, soft, non-tender, non-distended Integumentary: normal Extremities: no cyanosis, no edema, pink and warm, pulses normal Neurologic: non-focal exam, pupils equal and round, motor strength normal and, other (intention tremors) Psychiatric: other (unable to assess adequately) CBC and BMP: 09/17/18 04:52 09/17/18 04:52 ABG, PT/INR, D-dimer: ABG POC ABG pH 7.534 (7.35-7.45) H 09/12/18 05:29 POC ABG pCO2 50.4 (35-45) H 09/12/18 05:29 POC ABG pO2 86 (80-105) 09/12/18 05:29 POC ABG HCO3 42.5 09/12/18 05:29 POC ABG Total CO2 44 09/12/18 05:29 POC ABG O2 Sat 97 09/12/18 05:29 PT/INR, D-dimer PT 13.2 Sec. (12.2-14.9) 09/14/18 13:25 INR 0.96 (0.87-1.13) 09/14/18 13:25 D-Dimer 4180.35 ng/mlDDU (0-234) H 09/02/18 12:35 Abnormal lab findings: Abnormal Labs 09/02/18 09/02/18 09/02/18 12:35 12:35 12:35 WBC RBC 6.15 H Hgb 18.7 H Hct 57.7 H MCV RDW 15.5 H Plt Count Lymph % (Auto) 8.8 L Lymph # 0.9 L Seg Neutrophils % 83.2 H Seg Neuts % (Manual) Lymphocytes % (Manual) Seg Neutrophils # 8.9 H Seg Neutrophils # Man Lymphocytes # (Manual) PT 20.8 H INR 1.74 H D-Dimer 4180.35 H POC ABG pH POC ABG pCO2 POC ABG pO2 Sodium Potassium Chloride Carbon Dioxide BUN Creatinine Glucose POC Glucose Lactic Acid Calcium Magnesium Total Bilirubin Direct Bilirubin AST ALT Ammonia C-Reactive Protein Total Protein Albumin Triglycerides HDL Cholesterol Lipase TSH Free T4 Urine WBC (Auto) Salicylates < 0.3 L Acetaminophen 09/02/18 09/02/18 09/02/18 12:35 12:35 12:35 WBC RBC Hgb Hct MCV RDW Plt Count Lymph % (Auto) Lymph # Seg Neutrophils % Seg Neuts % (Manual) Lymphocytes % (Manual) Seg Neutrophils # Seg Neutrophils # Man Lymphocytes # (Manual) PT INR D-Dimer POC ABG pH POC ABG pCO2 POC ABG pO2 Sodium Potassium Chloride Carbon Dioxide BUN Creatinine Glucose POC Glucose 167 H Lactic Acid 3.20 H* Calcium Magnesium Total Bilirubin Direct Bilirubin AST ALT Ammonia C-Reactive Protein Total Protein Albumin Triglycerides HDL Cholesterol Lipase TSH Free T4 Urine WBC (Auto) Salicylates Acetaminophen < 5.0 L 09/02/18 09/02/18 09/02/18 13:36 14:40 16:45 WBC RBC Hgb Hct MCV RDW Plt Count Lymph % (Auto) Lymph # Seg Neutrophils % Seg Neuts % (Manual) Lymphocytes % (Manual) Seg Neutrophils # Seg Neutrophils # Man Lymphocytes # (Manual) PT INR D-Dimer POC ABG pH POC ABG pCO2 POC ABG pO2 Sodium 159 H Potassium Chloride 114.7 H Carbon Dioxide BUN 90 H Creatinine Glucose 172 H POC Glucose Lactic Acid 2.30 H* Calcium 10.8 H Magnesium Total Bilirubin Direct Bilirubin 0.3 H AST ALT Ammonia C-Reactive Protein Total Protein Albumin 2.6 L Triglycerides HDL Cholesterol Lipase 81 H TSH < 0.005 L Free T4 2.40 H Urine WBC (Auto) Salicylates Acetaminophen 09/03/18 09/03/18 09/03/18 11:26 11:26 11:26 WBC RBC Hgb Hct MCV RDW Plt Count Lymph % (Auto) Lymph # Seg Neutrophils % Seg Neuts % (Manual) Lymphocytes % (Manual) Seg Neutrophils # Seg Neutrophils # Man Lymphocytes # (Manual) PT 21.8 H INR 1.86 H D-Dimer POC ABG pH POC ABG pCO2 POC ABG pO2 Sodium 160 H Potassium Chloride 122.6 H Carbon Dioxide BUN 69 H Creatinine Glucose 127 H POC Glucose Lactic Acid Calcium Magnesium Total Bilirubin Direct Bilirubin AST ALT Ammonia C-Reactive Protein Total Protein Albumin 2.1 L Triglycerides HDL Cholesterol Lipase TSH Free T4 Urine WBC (Auto) Salicylates Acetaminophen 09/03/18 09/03/18 09/03/18 11:26 15:39 20:23 WBC RBC Hgb Hct MCV RDW Plt Count Lymph % (Auto) Lymph # Seg Neutrophils % Seg Neuts % (Manual) Lymphocytes % (Manual) Seg Neutrophils # Seg Neutrophils # Man Lymphocytes # (Manual) PT INR D-Dimer POC ABG pH POC ABG pCO2 POC ABG pO2 Sodium 160 H 160 H Potassium Chloride Carbon Dioxide BUN Creatinine Glucose POC Glucose Lactic Acid Calcium Magnesium Total Bilirubin Direct Bilirubin AST ALT Ammonia 75.0 H C-Reactive Protein Total Protein Albumin Triglycerides HDL Cholesterol Lipase TSH Free T4 Urine WBC (Auto) Salicylates Acetaminophen 09/03/18 09/04/18 09/04/18 Unknown 02:38 05:20 WBC RBC Hgb Hct MCV RDW Plt Count Lymph % (Auto) Lymph # Seg Neutrophils % Seg Neuts % (Manual) Lymphocytes % (Manual) Seg Neutrophils # Seg Neutrophils # Man Lymphocytes # (Manual) PT INR D-Dimer POC ABG pH POC ABG pCO2 POC ABG pO2 Sodium 160 H 166 H* Potassium Chloride 129.2 H Carbon Dioxide BUN 57 H Creatinine Glucose 137 H POC Glucose Lactic Acid Calcium Magnesium Total Bilirubin Direct Bilirubin AST ALT Ammonia C-Reactive Protein Total Protein 5.8 L Albumin 2.7 L Triglycerides 150 H HDL Cholesterol 21 L Lipase TSH Free T4 Urine WBC (Auto) Salicylates Acetaminophen 09/04/18 09/04/18 09/04/18 05:20 09:11 13:35 WBC RBC 5.12 H Hgb 15.5 H D 15.6 H Hct 48.0 H D 48.1 H MCV RDW 15.9 H Plt Count Lymph % (Auto) 11.8 L Lymph # 0.8 L Seg Neutrophils % 80.1 H Seg Neuts % (Manual) Lymphocytes % (Manual) Seg Neutrophils # Seg Neutrophils # Man Lymphocytes # (Manual) PT INR D-Dimer POC ABG pH POC ABG pCO2 POC ABG pO2 Sodium 166 H* Potassium Chloride Carbon Dioxide BUN Creatinine Glucose POC Glucose Lactic Acid Calcium Magnesium Total Bilirubin Direct Bilirubin AST ALT Ammonia C-Reactive Protein Total Protein Albumin Triglycerides HDL Cholesterol Lipase TSH Free T4 Urine WBC (Auto) Salicylates Acetaminophen 09/04/18 09/04/18 09/04/18 13:35 21:04 21:04 WBC RBC Hgb 16.9 H Hct 58.3 H D MCV RDW Plt Count Lymph % (Auto) Lymph # Seg Neutrophils % Seg Neuts % (Manual) Lymphocytes % (Manual) Seg Neutrophils # Seg Neutrophils # Man Lymphocytes # (Manual) PT INR D-Dimer POC ABG pH POC ABG pCO2 POC ABG pO2 Sodium 164 H* 159 H Potassium Chloride Carbon Dioxide BUN Creatinine Glucose POC Glucose Lactic Acid Calcium Magnesium Total Bilirubin Direct Bilirubin AST ALT Ammonia C-Reactive Protein Total Protein Albumin Triglycerides HDL Cholesterol Lipase TSH Free T4 Urine WBC (Auto) Salicylates Acetaminophen 09/05/18 09/05/18 09/05/18 01:11 02:51 03:17 WBC RBC Hgb Hct MCV RDW Plt Count Lymph % (Auto) Lymph # Seg Neutrophils % Seg Neuts % (Manual) Lymphocytes % (Manual) Seg Neutrophils # Seg Neutrophils # Man Lymphocytes # (Manual) PT INR D-Dimer POC ABG pH 7.340 L POC ABG pCO2 57.8 H POC ABG pO2 74 L Sodium 152 H Potassium Chloride Carbon Dioxide BUN Creatinine Glucose POC Glucose 116 H Lactic Acid Calcium Magnesium Total Bilirubin Direct Bilirubin AST ALT Ammonia C-Reactive Protein Total Protein Albumin Triglycerides HDL Cholesterol Lipase TSH Free T4 Urine WBC (Auto) Salicylates Acetaminophen 09/05/18 09/05/18 09/05/18 07:45 10:34 15:21 WBC RBC Hgb Hct MCV RDW Plt Count Lymph % (Auto) Lymph # Seg Neutrophils % Seg Neuts % (Manual) Lymphocytes % (Manual) Seg Neutrophils # Seg Neutrophils # Man Lymphocytes # (Manual) PT INR D-Dimer POC ABG pH POC ABG pCO2 POC ABG pO2 Sodium 156 H 153 H Potassium Chloride Carbon Dioxide BUN Creatinine Glucose POC Glucose Lactic Acid Calcium Magnesium Total Bilirubin Direct Bilirubin AST ALT Ammonia 61.0 H C-Reactive Protein Total Protein Albumin Triglycerides HDL Cholesterol Lipase TSH Free T4 Urine WBC (Auto) Salicylates Acetaminophen 09/06/18 09/06/18 09/06/18 05:10 05:10 08:43 WBC RBC 5.06 H Hgb Hct 47.8 H D MCV RDW 15.3 H Plt Count Lymph % (Auto) Lymph # Seg Neutrophils % Seg Neuts % (Manual) Lymphocytes % (Manual) Seg Neutrophils # Seg Neutrophils # Man Lymphocytes # (Manual) PT INR D-Dimer POC ABG pH POC ABG pCO2 POC ABG pO2 Sodium 155 H 150 H Potassium Chloride 117.0 H Carbon Dioxide BUN 36 H Creatinine Glucose 143 H POC Glucose Lactic Acid Calcium Magnesium Total Bilirubin Direct Bilirubin AST ALT Ammonia C-Reactive Protein Total Protein Albumin Triglycerides HDL Cholesterol Lipase TSH Free T4 Urine WBC (Auto) Salicylates Acetaminophen 09/06/18 09/06/18 09/06/18 13:21 15:11 16:23 WBC RBC Hgb Hct MCV RDW Plt Count Lymph % (Auto) Lymph # Seg Neutrophils % Seg Neuts % (Manual) Lymphocytes % (Manual) Seg Neutrophils # Seg Neutrophils # Man Lymphocytes # (Manual) PT INR D-Dimer POC ABG pH POC ABG pCO2 49.1 H POC ABG pO2 107 H Sodium 151 H Potassium Chloride Carbon Dioxide BUN Creatinine Glucose POC Glucose 120 H Lactic Acid Calcium Magnesium Total Bilirubin Direct Bilirubin AST ALT Ammonia C-Reactive Protein Total Protein Albumin Triglycerides HDL Cholesterol Lipase TSH Free T4 Urine WBC (Auto) Salicylates Acetaminophen 09/06/18 09/07/18 09/07/18 21:58 00:25 02:49 WBC RBC 5.32 H Hgb 16.1 H Hct 50.2 H MCV 95 H RDW 15.6 H Plt Count Lymph % (Auto) Lymph # Seg Neutrophils % Seg Neuts % (Manual) Lymphocytes % (Manual) Seg Neutrophils # Seg Neutrophils # Man Lymphocytes # (Manual) PT INR D-Dimer POC ABG pH POC ABG pCO2 POC ABG pO2 Sodium 150 H Potassium Chloride Carbon Dioxide BUN Creatinine Glucose POC Glucose Lactic Acid Calcium Magnesium Total Bilirubin Direct Bilirubin AST ALT Ammonia C-Reactive Protein 9.00 H Total Protein Albumin Triglycerides HDL Cholesterol Lipase TSH Free T4 Urine WBC (Auto) Salicylates Acetaminophen 09/07/18 09/07/18 09/07/18 02:49 03:43 09:17 WBC RBC Hgb Hct MCV RDW Plt Count Lymph % (Auto) Lymph # Seg Neutrophils % Seg Neuts % (Manual) Lymphocytes % (Manual) Seg Neutrophils # Seg Neutrophils # Man Lymphocytes # (Manual) PT INR D-Dimer POC ABG pH POC ABG pCO2 46.5 H POC ABG pO2 Sodium 149 H 155 H Potassium 5.2 H D Chloride 116.1 H Carbon Dioxide 21 L BUN 47 H Creatinine Glucose 122 H POC Glucose Lactic Acid Calcium Magnesium Total Bilirubin 1.80 H Direct Bilirubin AST 83 H ALT Ammonia C-Reactive Protein Total Protein Albumin 1.8 L Triglycerides HDL Cholesterol Lipase TSH Free T4 Urine WBC (Auto) Salicylates Acetaminophen 09/07/18 09/08/18 09/08/18 16:02 00:14 00:51 WBC RBC Hgb Hct MCV RDW Plt Count Lymph % (Auto) Lymph # Seg Neutrophils % Seg Neuts % (Manual) Lymphocytes % (Manual) Seg Neutrophils # Seg Neutrophils # Man Lymphocytes # (Manual) PT INR D-Dimer POC ABG pH POC ABG pCO2 POC ABG pO2 Sodium 156 H 154 H Potassium Chloride Carbon Dioxide BUN Creatinine Glucose POC Glucose Lactic Acid Calcium Magnesium Total Bilirubin Direct Bilirubin AST ALT Ammonia C-Reactive Protein Total Protein Albumin Triglycerides HDL Cholesterol Lipase TSH Free T4 Urine WBC (Auto) 41.0 H Salicylates Acetaminophen 09/08/18 09/08/18 09/08/18 04:22 04:22 04:46 WBC RBC Hgb Hct MCV 95 H RDW 15.3 H Plt Count Lymph % (Auto) Lymph # Seg Neutrophils % Seg Neuts % (Manual) Lymphocytes % (Manual) Seg Neutrophils # Seg Neutrophils # Man Lymphocytes # (Manual) PT INR D-Dimer POC ABG pH POC ABG pCO2 55.3 H POC ABG pO2 77 L Sodium 153 H Potassium 3.5 L D Chloride 114.8 H Carbon Dioxide BUN 69 H Creatinine Glucose 277 H POC Glucose Lactic Acid Calcium Magnesium Total Bilirubin Direct Bilirubin AST 44 H ALT Ammonia C-Reactive Protein Total Protein 5.6 L Albumin 2.4 L Triglycerides HDL Cholesterol Lipase TSH Free T4 Urine WBC (Auto) Salicylates Acetaminophen 09/08/18 09/08/18 09/08/18 08:40 12:03 15:43 WBC RBC Hgb Hct MCV RDW Plt Count Lymph % (Auto) Lymph # Seg Neutrophils % Seg Neuts % (Manual) Lymphocytes % (Manual) Seg Neutrophils # Seg Neutrophils # Man Lymphocytes # (Manual) PT INR D-Dimer POC ABG pH POC ABG pCO2 POC ABG pO2 Sodium 154 H 152 H Potassium Chloride Carbon Dioxide BUN Creatinine Glucose POC Glucose 186 H Lactic Acid Calcium Magnesium Total Bilirubin Direct Bilirubin AST ALT Ammonia C-Reactive Protein Total Protein Albumin Triglycerides HDL Cholesterol Lipase TSH Free T4 Urine WBC (Auto) Salicylates Acetaminophen 09/08/18 09/08/18 09/09/18 17:57 23:54 04:01 WBC RBC Hgb Hct MCV 95 H RDW 15.3 H Plt Count 130 L Lymph % (Auto) Lymph # Seg Neutrophils % Seg Neuts % (Manual) Lymphocytes % (Manual) Seg Neutrophils # Seg Neutrophils # Man Lymphocytes # (Manual) PT INR D-Dimer POC ABG pH POC ABG pCO2 POC ABG pO2 Sodium Potassium Chloride Carbon Dioxide BUN Creatinine Glucose POC Glucose 252 H 297 H Lactic Acid Calcium Magnesium Total Bilirubin Direct Bilirubin AST ALT Ammonia C-Reactive Protein Total Protein Albumin Triglycerides HDL Cholesterol Lipase TSH Free T4 Urine WBC (Auto) Salicylates Acetaminophen 09/09/18 09/09/18 09/09/18 04:01 04:33 05:32 WBC RBC Hgb Hct MCV RDW Plt Count Lymph % (Auto) Lymph # Seg Neutrophils % Seg Neuts % (Manual) Lymphocytes % (Manual) Seg Neutrophils # Seg Neutrophils # Man Lymphocytes # (Manual) PT INR D-Dimer POC ABG pH 7.267 L POC ABG pCO2 76.6 H POC ABG pO2 69 L Sodium 150 H Potassium Chloride 110.9 H Carbon Dioxide 32 H BUN 62 H Creatinine Glucose 220 H POC Glucose 196 H Lactic Acid Calcium 10.3 H Magnesium Total Bilirubin Direct Bilirubin AST ALT Ammonia C-Reactive Protein Total Protein Albumin Triglycerides HDL Cholesterol Lipase TSH Free T4 Urine WBC (Auto) Salicylates Acetaminophen 09/09/18 09/09/18 09/09/18 11:40 17:57 23:36 WBC RBC Hgb Hct MCV RDW Plt Count Lymph % (Auto) Lymph # Seg Neutrophils % Seg Neuts % (Manual) Lymphocytes % (Manual) Seg Neutrophils # Seg Neutrophils # Man Lymphocytes # (Manual) PT INR D-Dimer POC ABG pH POC ABG pCO2 POC ABG pO2 Sodium Potassium Chloride Carbon Dioxide BUN Creatinine Glucose POC Glucose 217 H 172 H 131 H Lactic Acid Calcium Magnesium Total Bilirubin Direct Bilirubin AST ALT Ammonia C-Reactive Protein Total Protein Albumin Triglycerides HDL Cholesterol Lipase TSH Free T4 Urine WBC (Auto) Salicylates Acetaminophen 09/10/18 09/10/18 09/10/18 05:07 05:07 05:51 WBC RBC Hgb Hct MCV RDW Plt Count 115 L Lymph % (Auto) Lymph # Seg Neutrophils % Seg Neuts % (Manual) 95.0 H Lymphocytes % (Manual) 3.0 L Seg Neutrophils # Seg Neutrophils # Man Lymphocytes # (Manual) 0.2 L PT INR D-Dimer POC ABG pH POC ABG pCO2 POC ABG pO2 Sodium 146 H Potassium Chloride Carbon Dioxide 33 H BUN 46 H Creatinine 0.7 L Glucose 174 H POC Glucose 169 H Lactic Acid Calcium 10.3 H Magnesium Total Bilirubin Direct Bilirubin AST ALT Ammonia C-Reactive Protein Total Protein Albumin Triglycerides HDL Cholesterol Lipase TSH Free T4 Urine WBC (Auto) Salicylates Acetaminophen 09/10/18 09/10/18 09/10/18 14:25 15:02 17:48 WBC RBC Hgb Hct MCV RDW Plt Count Lymph % (Auto) Lymph # Seg Neutrophils % Seg Neuts % (Manual) Lymphocytes % (Manual) Seg Neutrophils # Seg Neutrophils # Man Lymphocytes # (Manual) PT INR D-Dimer POC ABG pH POC ABG pCO2 62.6 H POC ABG pO2 Sodium Potassium Chloride Carbon Dioxide BUN Creatinine Glucose POC Glucose 240 H 185 H Lactic Acid Calcium Magnesium Total Bilirubin Direct Bilirubin AST ALT Ammonia C-Reactive Protein Total Protein Albumin Triglycerides HDL Cholesterol Lipase TSH Free T4 Urine WBC (Auto) Salicylates Acetaminophen 09/10/18 09/11/18 09/11/18 23:28 04:25 04:38 WBC RBC Hgb Hct MCV RDW Plt Count Lymph % (Auto) Lymph # Seg Neutrophils % Seg Neuts % (Manual) Lymphocytes % (Manual) Seg Neutrophils # Seg Neutrophils # Man Lymphocytes # (Manual) PT INR D-Dimer POC ABG pH 7.487 H POC ABG pCO2 52.3 H POC ABG pO2 61 L Sodium 146 H Potassium Chloride Carbon Dioxide 37 H BUN 38 H Creatinine Glucose 254 H POC Glucose 132 H Lactic Acid Calcium 10.7 H Magnesium Total Bilirubin Direct Bilirubin AST ALT Ammonia C-Reactive Protein Total Protein Albumin Triglycerides HDL Cholesterol Lipase TSH Free T4 Urine WBC (Auto) Salicylates Acetaminophen 09/11/18 09/11/18 09/11/18 05:09 11:58 17:54 WBC RBC Hgb Hct MCV RDW Plt Count Lymph % (Auto) Lymph # Seg Neutrophils % Seg Neuts % (Manual) Lymphocytes % (Manual) Seg Neutrophils # Seg Neutrophils # Man Lymphocytes # (Manual) PT INR D-Dimer POC ABG pH 7.538 H POC ABG pCO2 50.4 H POC ABG pO2 78 L Sodium Potassium Chloride Carbon Dioxide BUN Creatinine Glucose POC Glucose 190 H 126 H Lactic Acid Calcium Magnesium Total Bilirubin Direct Bilirubin AST ALT Ammonia C-Reactive Protein Total Protein Albumin Triglycerides HDL Cholesterol Lipase TSH Free T4 Urine WBC (Auto) Salicylates Acetaminophen 09/11/18 09/12/18 09/12/18 23:44 05:29 05:36 WBC RBC Hgb Hct MCV RDW Plt Count Lymph % (Auto) Lymph # Seg Neutrophils % Seg Neuts % (Manual) Lymphocytes % (Manual) Seg Neutrophils # Seg Neutrophils # Man Lymphocytes # (Manual) PT INR D-Dimer POC ABG pH 7.534 H POC ABG pCO2 50.4 H POC ABG pO2 Sodium Potassium Chloride Carbon Dioxide BUN Creatinine Glucose POC Glucose 119 H Lactic Acid Calcium Magnesium 2.40 H Total Bilirubin Direct Bilirubin AST ALT Ammonia C-Reactive Protein Total Protein Albumin Triglycerides HDL Cholesterol Lipase TSH Free T4 Urine WBC (Auto) Salicylates Acetaminophen 09/12/18 09/12/18 09/12/18 08:05 08:05 17:10 WBC 11.7 H RBC Hgb Hct MCV RDW Plt Count 124 L Lymph % (Auto) Lymph # Seg Neutrophils % Seg Neuts % (Manual) 89.0 H Lymphocytes % (Manual) 9.0 L Seg Neutrophils # Seg Neutrophils # Man 10.4 H Lymphocytes # (Manual) 1.1 L PT INR D-Dimer POC ABG pH POC ABG pCO2 POC ABG pO2 Sodium Potassium Chloride 97.1 L Carbon Dioxide 38 H BUN 34 H Creatinine 0.7 L Glucose 127 H POC Glucose 134 H Lactic Acid Calcium 10.3 H Magnesium Total Bilirubin Direct Bilirubin AST ALT Ammonia C-Reactive Protein Total Protein Albumin Triglycerides HDL Cholesterol Lipase TSH Free T4 Urine WBC (Auto) Salicylates Acetaminophen 09/13/18 09/13/18 09/13/18 00:09 04:41 04:41 WBC 11.5 H RBC 5.15 H Hgb Hct 47.2 H MCV RDW Plt Count 129 L Lymph % (Auto) Lymph # Seg Neutrophils % Seg Neuts % (Manual) 89.0 H Lymphocytes % (Manual) 5.0 L Seg Neutrophils # Seg Neutrophils # Man 10.2 H Lymphocytes # (Manual) 0.6 L PT INR D-Dimer POC ABG pH POC ABG pCO2 POC ABG pO2 Sodium Potassium Chloride 96.6 L Carbon Dioxide 34 H BUN 38 H Creatinine Glucose 197 H POC Glucose 149 H Lactic Acid Calcium Magnesium Total Bilirubin Direct Bilirubin AST ALT Ammonia C-Reactive Protein Total Protein Albumin Triglycerides HDL Cholesterol Lipase TSH Free T4 Urine WBC (Auto) Salicylates Acetaminophen 09/13/18 09/13/18 09/14/18 05:10 17:16 05:51 WBC RBC Hgb Hct MCV RDW Plt Count Lymph % (Auto) Lymph # Seg Neutrophils % Seg Neuts % (Manual) Lymphocytes % (Manual) Seg Neutrophils # Seg Neutrophils # Man Lymphocytes # (Manual) PT INR D-Dimer POC ABG pH POC ABG pCO2 POC ABG pO2 Sodium Potassium Chloride Carbon Dioxide BUN Creatinine Glucose POC Glucose 199 H 220 H 204 H Lactic Acid Calcium Magnesium Total Bilirubin Direct Bilirubin AST ALT Ammonia C-Reactive Protein Total Protein Albumin Triglycerides HDL Cholesterol Lipase TSH Free T4 Urine WBC (Auto) Salicylates Acetaminophen 09/14/18 09/14/18 09/15/18 11:32 17:17 06:58 WBC RBC Hgb Hct MCV RDW Plt Count 121 L Lymph % (Auto) Lymph # Seg Neutrophils % Seg Neuts % (Manual) 81.0 H Lymphocytes % (Manual) Seg Neutrophils # Seg Neutrophils # Man Lymphocytes # (Manual) PT INR D-Dimer POC ABG pH POC ABG pCO2 POC ABG pO2 Sodium Potassium Chloride Carbon Dioxide BUN Creatinine Glucose POC Glucose 149 H 170 H Lactic Acid Calcium Magnesium Total Bilirubin Direct Bilirubin AST ALT Ammonia C-Reactive Protein Total Protein Albumin Triglycerides HDL Cholesterol Lipase TSH Free T4 Urine WBC (Auto) Salicylates Acetaminophen 09/15/18 09/15/18 09/16/18 06:58 17:18 06:43 WBC RBC Hgb Hct MCV RDW Plt Count Lymph % (Auto) Lymph # Seg Neutrophils % Seg Neuts % (Manual) Lymphocytes % (Manual) Seg Neutrophils # Seg Neutrophils # Man Lymphocytes # (Manual) PT INR D-Dimer POC ABG pH POC ABG pCO2 POC ABG pO2 Sodium Potassium 3.4 L Chloride 95.9 L Carbon Dioxide 35 H 32 H BUN 39 H 34 H Creatinine 0.7 L Glucose 104 H POC Glucose 113 H Lactic Acid Calcium Magnesium Total Bilirubin Direct Bilirubin AST 48 H 59 H ALT 95 H 114 H Ammonia C-Reactive Protein Total Protein 5.2 L 5.2 L Albumin 2.5 L 2.5 L Triglycerides HDL Cholesterol Lipase TSH Free T4 Urine WBC (Auto) Salicylates Acetaminophen 09/16/18 09/16/18 09/16/18 06:55 11:57 19:31 WBC RBC Hgb Hct MCV RDW Plt Count 99 L Lymph % (Auto) Lymph # Seg Neutrophils % Seg Neuts % (Manual) 76.0 H Lymphocytes % (Manual) Seg Neutrophils # Seg Neutrophils # Man Lymphocytes # (Manual) 1.0 L PT INR D-Dimer POC ABG pH POC ABG pCO2 POC ABG pO2 Sodium Potassium Chloride Carbon Dioxide BUN Creatinine Glucose POC Glucose 180 H 69 L Lactic Acid Calcium Magnesium Total Bilirubin Direct Bilirubin AST ALT Ammonia C-Reactive Protein Total Protein Albumin Triglycerides HDL Cholesterol Lipase TSH Free T4 Urine WBC (Auto) Salicylates Acetaminophen 09/16/18 09/16/18 09/17/18 20:44 23:38 04:52 WBC RBC Hgb Hct MCV RDW Plt Count 112 L Lymph % (Auto) Lymph # Seg Neutrophils % Seg Neuts % (Manual) 72.0 H Lymphocytes % (Manual) Seg Neutrophils # Seg Neutrophils # Man Lymphocytes # (Manual) PT INR D-Dimer POC ABG pH POC ABG pCO2 POC ABG pO2 Sodium Potassium Chloride Carbon Dioxide BUN Creatinine Glucose POC Glucose 144 H 138 H Lactic Acid Calcium Magnesium Total Bilirubin Direct Bilirubin AST ALT Ammonia C-Reactive Protein Total Protein Albumin Triglycerides HDL Cholesterol Lipase TSH Free T4 Urine WBC (Auto) Salicylates Acetaminophen 09/17/18 09/17/18 04:52 12:08 WBC RBC Hgb Hct MCV RDW Plt Count Lymph % (Auto) Lymph # Seg Neutrophils % Seg Neuts % (Manual) Lymphocytes % (Manual) Seg Neutrophils # Seg Neutrophils # Man Lymphocytes # (Manual) PT INR D-Dimer POC ABG pH POC ABG pCO2 POC ABG pO2 Sodium Potassium 3.2 L D Chloride 97.6 L Carbon Dioxide 33 H BUN 29 H Creatinine 0.7 L Glucose POC Glucose 112 H Lactic Acid Calcium Magnesium Total Bilirubin Direct Bilirubin AST 46 H ALT 106 H Ammonia C-Reactive Protein Total Protein 5.0 L Albumin 2.4 L Triglycerides HDL Cholesterol Lipase TSH Free T4 Urine WBC (Auto) Salicylates Acetaminophen Allied health notes reviewed: RT
--- NOTE | 2018-09-17 17:54 | Progress Note ---
Assessment and Plan Assessment and plan: 68 YO Male with Obesity Hypoventilation, COPD presents to ED for evaluation. Pt is confused, lethargic and unable to provide history. Pt history provided by his brother who is at bedside during exam and interview. As per brother, the patient has not returned phone calls over the past 4 days. As a result, the brother went to the home but the patient did not answer the door. Law Enforcement notified, and entry into the home was obtained. The patient was found down and covered in his own feces. Pt exhibited slurred speech, confusion. EMS notified and upon arrival, the patient was found to have a neurologic deficit. A code stroke was called, and the patient was transported to [facility]. Pt seen and evaluated in ED and found to have evidence of CVA as well as SIRS, Acidosis, and Encephalopathy. Pt admitted to telemetry and initiated on CVA protocol. He was intubated with concern for aspiration. Neurology consulted. Acute Metabolic encephalopathy - resolved - CT, MRI head negative for CVA Delirium - resolved Acute Hypoxic Respiratory failure, COPD exacerbation - Patient extubated on 09/11 - patient is off oxygen Hypernatremia - Resolved Rectal Bleed - Evaluated by GI and they decreased his due to hemorrhoid - H&H stable Aspiration Pneumonia - Finished antibiotics Obesity Hypoventilation syndrome - Oxygen support ETOH use disorder- pt denies but admits to tobacco use hYPOTHYRODISIM - On Synthroid Moderate Protien calorie Malnutrition - nutrition consult -Discontinue NG tube and start feeding as recommended by dietitian. Secondary Coagulopathy ?UNDERLYING LIVER DISEASE VS IATROGENIC MEDICATION - Supportive care Sepsis - Resolved Tobacco use disorder per hx; counsell when stable Patient is on folic cath is placed by urology. Dysphagia; on mechanical soft diet per ST. Diabetes mellitus - on basal and sliding scale insulin At this time pending discharge placement History Interval history: Patient seen and examined, he is sitting up in the bed. Continues to improve. tolerating diet. No BM noted in the past few days. Hospitalist Physical - Physical exam Narrative exam: VITAL SIGNS: Reviewed. GENERAL: The patient appeared still with mild respiratory distress continues to showe improvement. Vital signs as documented. HEAD: No signs of head trauma. EYES: Pupils are equal. Extraocular motions intact. EARS: Hearing grossly intact. MOUTH: Oropharynx is normal. NECK: No adenopathy, no JVD. CHEST: Chest with crackles breath sounds bilaterally. No wheezes, rales, or rhonchi. CARDIAC: Regular rate and rhythm. S1 and S2, without murmurs, gallops, or rubs. VASCULAR: No Edema. Peripheral pulses normal and equal in all extremities. ABDOMEN: Soft, without detectable tenderness. No sign of distention. No rebound or guarding, and no masses palpated. Bowel Sounds normal. MUSCULOSKELETAL: Good range of motion of all major joints. Extremities without clubbing, cyanosis or edema. NEUROLOGIC EXAM: Alert and oriented x to person and place. No focal sensory or strength deficits. Speech normal. Follows commands. PSYCHIATRIC: Mood normal. SKIN: No rash or lesions. - Constitutional Vitals: Temp Pulse Resp BP Pulse Ox 97.8 F 78 22 158/106 97 09/17/18 12:00 09/17/18 15:12 09/17/18 15:12 09/17/18 13:00 09/17/18 13:00 General appearance: Present: mild distress, obese, disheveled Results - Labs CBC & Chem 7: 09/17/18 04:52 09/17/18 04:52 Labs: Laboratory Last Values WBC 7.3 K/mm3 (4.5-11.0) 09/17/18 04:52 RBC 4.75 M/mm3 (3.65-5.03) 09/17/18 04:52 Hgb 14.3 gm/dl (11.8-15.2) 09/17/18 04:52 Hct 43.3 % (35.5-45.6) 09/17/18 04:52 MCV 91 fl (84-94) 09/17/18 04:52 MCH 30 pg (28-32) 09/17/18 04:52 MCHC 33 % (32-34) 09/17/18 04:52 RDW 14.8 % (13.2-15.2) 09/17/18 04:52 Plt Count 112 K/mm3 (140-440) L 09/17/18 04:52 Lymph % (Auto) 11.8 % (13.4-35.0) L 09/04/18 05:20 [place] % (Auto) 6.8 % (0.0-7.3) 09/04/18 05:20 Eos % (Auto) 1.0 % (0.0-4.3) 09/04/18 05:20 Baso % (Auto) 0.3 % (0.0-1.8) 09/04/18 05:20 Lymph # 0.8 K/mm3 (1.2-5.4) L 09/04/18 05:20 [place] # 0.5 K/mm3 (0.0-0.8) 09/04/18 05:20 Eos # 0.1 K/mm3 (0.0-0.4) 09/04/18 05:20 Baso # 0.0 K/mm3 (0.0-0.1) 09/04/18 05:20 Add Manual Diff Complete 09/17/18 04:52 Total Counted 100 09/17/18 04:52 Seg Neutrophils % Manager Monitoring 09/13/18 04:41 Seg Neuts % (Manual) 72.0 % (40.0-70.0) H 09/17/18 04:52 Band Neutrophils % 5.0 % 09/17/18 04:52 Lymphocytes % (Manual) 16.0 % (13.4-35.0) 09/17/18 04:52 Reactive Lymphs % (Man) 0 % 09/17/18 04:52 Monocytes % (Manual) 1.0 % (0.0-7.3) 09/17/18 04:52 Eosinophils % (Manual) 3.0 % (0.0-4.3) 09/17/18 04:52 Basophils % (Manual) 0 % (0.0-1.8) 09/17/18 04:52 Metamyelocytes % 2.0 % 09/17/18 04:52 Myelocytes % 1.0 % 09/17/18 04:52 Promyelocytes % 0 % 09/17/18 04:52 Blast Cells % 0 % 09/17/18 04:52 Nucleated RBC % Not Reportable 09/17/18 04:52 Seg Neutrophils # 5.5 K/mm3 (1.8-7.7) 09/04/18 05:20 Seg Neutrophils # Man 5.3 K/mm3 (1.8-7.7) 09/17/18 04:52 Band Neutrophils # 0.4 K/mm3 09/17/18 04:52 Lymphocytes # (Manual) 1.2 K/mm3 (1.2-5.4) 09/17/18 04:52 Abs React Lymphs (Man) 0.0 K/mm3 09/17/18 04:52 Monocytes # (Manual) 0.1 K/mm3 (0.0-0.8) 09/17/18 04:52 Eosinophils # (Manual) 0.2 K/mm3 (0.0-0.4) 09/17/18 04:52 Basophils # (Manual) 0.0 K/mm3 (0.0-0.1) 09/17/18 04:52 Metamyelocytes # 0.1 K/mm3 09/17/18 04:52 Myelocytes # 0.1 K/mm3 09/17/18 04:52 Promyelocytes # 0.0 K/mm3 09/17/18 04:52 Blast Cells # 0.0 K/mm3 09/17/18 04:52 WBC Morphology Not Reportable 09/17/18 04:52 Hypersegmented Neuts Not Reportable 09/17/18 04:52 Hyposegmented Neuts Not Reportable 09/17/18 04:52 Hypogranular Neuts Not Reportable 09/17/18 04:52 Smudge Cells Not Reportable 09/17/18 04:52 Toxic Granulation Not Reportable 09/17/18 04:52 Toxic Vacuolation Not Reportable 09/17/18 04:52 Dohle Bodies Not Reportable 09/17/18 04:52 Pelger-Huet Anomaly Not Reportable 09/17/18 04:52 Tony Rods Not Reportable 09/17/18 04:52 Platelet Estimate Appears normal 09/17/18 04:52 Clumped Platelets Not Reportable 09/17/18 04:52 Plt Clumps, EDTA Not Reportable 09/17/18 04:52 Large Platelets Not Reportable 09/17/18 04:52 Giant Platelets Not Reportable 09/17/18 04:52 Platelet Satelliting Not Reportable 09/17/18 04:52 Plt Morphology Comment Not Reportable 09/17/18 04:52 RBC Morphology Not Reportable 09/17/18 04:52 Dimorphic RBCs Not Reportable 09/17/18 04:52 Polychromasia Not Reportable 09/17/18 04:52 Hypochromasia Not Reportable 09/17/18 04:52 Poikilocytosis Not Reportable 09/17/18 04:52 Anisocytosis Not Reportable 09/17/18 04:52 Microcytosis Not Reportable 09/17/18 04:52 Macrocytosis Not Reportable 09/17/18 04:52 Spherocytes Not Reportable 09/17/18 04:52 Pappenheimer Bodies Not Reportable 09/17/18 04:52 Sickle Cells Not Reportable 09/17/18 04:52 Target Cells Not Reportable 09/17/18 04:52 Tear Drop Cells Not Reportable 09/17/18 04:52 Ovalocytes Not Reportable 09/17/18 04:52 Stomatocytes 1+ 09/17/18 04:52 Helmet Cells Not Reportable 09/17/18 04:52 Vizcaino-Moroni Bodies Not Reportable 09/17/18 04:52 [place] Rings Not Reportable 09/17/18 04:52 Aleksandr Cells Not Reportable 09/17/18 04:52 Bite Cells Not Reportable 09/17/18 04:52 Crenated Cell Not Reportable 09/17/18 04:52 Elliptocytes Not Reportable 09/17/18 04:52 Acanthocytes (Spur) Not Reportable 09/17/18 04:52 Rouleaux Not Reportable 09/17/18 04:52 Hemoglobin C Crystals Not Reportable 09/17/18 04:52 Schistocytes Not Reportable 09/17/18 04:52 Malaria parasites Not Reportable 09/17/18 04:52 Tejinder Bodies Not Reportable 09/17/18 04:52 Hem Pathologist Commnt No 09/17/18 04:52 PT 13.2 Sec. (12.2-14.9) 09/14/18 13:25 INR 0.96 (0.87-1.13) 09/14/18 13:25 APTT 32.5 Sec. (24.2-36.6) 09/02/18 12:35 D-Dimer 4180.35 ng/mlDDU (0-234) H 09/02/18 12:35 POC ABG pH 7.534 (7.35-7.45) H 09/12/18 05:29 POC ABG pCO2 50.4 (35-45) H 09/12/18 05:29 POC ABG pO2 86 (80-105) 09/12/18 05:29 POC ABG HCO3 42.5 02/01/19 05:29 POC ABG Total CO2 44 09/12/18 05:29 POC ABG O2 Sat 97 09/12/18 05:29 POC ABG Base Excess 20 09/12/18 05:29 FiO2 40 % 09/12/18 05:29 Sodium 140 mmol/L (137-145) 09/17/18 04:52 Potassium 3.2 mmol/L (3.6-5.0) L D 09/17/18 04:52 Chloride 97.6 mmol/L (98-107) L 09/17/18 04:52 Carbon Dioxide 33 mmol/L (22-30) H 09/17/18 04:52 Anion Gap 13 mmol/L 09/17/18 04:52 BUN 29 mg/dL (9-20) H 09/17/18 04:52 Creatinine 0.7 mg/dL (0.8-1.5) L 09/17/18 04:52 Estimated GFR > 60 ml/min 09/17/18 04:52 BUN/Creatinine Ratio 41 % 09/17/18 04:52 Glucose 80 mg/dL (75-100) 09/17/18 04:52 POC Glucose 196 (70-105) H 09/17/18 16:48 Lactic Acid 1.40 mmol/L (0.7-2.0) 09/06/18 21:58 Calcium 9.3 mg/dL (8.4-10.2) 09/17/18 04:52 Magnesium 2.40 mg/dL (1.7-2.3) H 09/11/18 23:44 Total Bilirubin 0.70 mg/dL (0.1-1.2) 09/17/18 04:52 Direct Bilirubin < 0.2 mg/dL (0-0.2) 09/03/18 11:26 Indirect Bilirubin 0.3 mg/dL 09/02/18 13:36 AST 46 units/L (5-40) H 09/17/18 04:52 ALT 106 units/L (7-56) H 09/17/18 04:52 Alkaline Phosphatase 84 units/L (35-129) 09/17/18 04:52 Ammonia 58.0 umol/L (25-60) 09/06/18 05:10 Total Creatine Kinase 98 units/L (55-170) 09/02/18 13:36 Troponin T 0.018 ng/mL (0.00-0.029) 09/02/18 13:36 C-Reactive Protein 9.00 mg/dL (0.00-1.30) H 09/06/18 21:58 NT-Pro-B Natriuret Pep 873.7 pg/mL (0-900) 09/02/18 13:36 Total Protein 5.0 g/dL (6.3-8.2) L 09/17/18 04:52 Albumin 2.4 g/dL (3.9-5) L 09/17/18 04:52 Albumin/Globulin Ratio 0.9 % 09/17/18 04:52 Triglycerides 150 mg/dL (2-149) H 09/03/18 Unknown Cholesterol 116 mg/dL (50-199) 09/03/18 Unknown LDL Cholesterol Direct 69 mg/dL (50-130) 09/03/18 Unknown HDL Cholesterol 21 mg/dL (40-59) L 09/03/18 Unknown Cholesterol/HDL Ratio 5.52 % 09/03/18 Unknown Lipase 81 units/L (13-60) H 09/02/18 13:36 TSH < 0.005 mlU/mL (0.270-4.200) L 09/02/18 16:45 Free T4 2.40 ng/dL (0.76-1.46) H 09/02/18 16:45 Urine Color [place] (Yellow) 09/08/18 00:14 Urine Turbidity Cloudy (Clear) 09/08/18 00:14 Urine pH 5.0 (5.0-7.0) 09/08/18 00:[address] [place] 1.019 (1.003-1.030) 09/08/18 00:14 Urine Protein 30 mg/dl mg/dL (Negative) 09/08/18 00:14 Urine Glucose (UA) Neg mg/dL (Negative) 09/08/18 00:14 Urine Ketones Neg mg/dL (Negative) 09/08/18 00:14 Urine Blood Lg (Negative) 09/08/18 00:14 Urine Nitrite Neg (Negative) 09/08/18 00:14 Urine Bilirubin Neg (Negative) 09/08/18 00:14 Urine Urobilinogen 4.0 mg/dL (<2.0) 09/08/18 00:14 Ur Leukocyte Esterase Neg (Negative) 09/08/18 00:14 Urine WBC (Auto) 41.0 /HPF (0.0-6.0) H 09/08/18 00:14 Urine RBC (Auto) > 182.0 /HPF (0.0-6.0) 09/08/18 00:14 U Epithel Cells (Auto) 8.0 /HPF (0-13.0) 09/08/18 00:14 Urine Bacteria (Auto) 2+ /HPF (Negative) 09/08/18 00:14 Ur Transition Epith Cell 1 /HPF 09/08/18 00:14 Amorphous Crystals 3+ 09/08/18 00:14 Hyaline Casts 99 /LPF 09/08/18 00:14 Urine Mucus 2+ /HPF 09/08/18 00:14 Salicylates < 0.3 mg/dL (2.8-20.0) L 09/02/18 12:35 Urine Opiates Screen Presumptive negative 09/02/18 13:59 Urine Methadone Screen Presumptive negative 09/02/18 13:59 Acetaminophen < 5.0 ug/mL (10.0-30.0) L 09/02/18 12:35 Ur Barbiturates Screen Presumptive negative 09/02/18 13:59 Ur Phencyclidine Scrn Presumptive negative 09/02/18 13:59 Ur Amphetamines Screen Presumptive negative 09/02/18 13:59 U Benzodiazepines Scrn Presumptive negative 09/02/18 13:59 Urine Cocaine Screen Presumptive negative 09/02/18 13:59 U Marijuana (THC) Screen Presumptive negative 09/02/18 13:59 Drugs of Abuse Note Disclamer 09/02/18 13:59 Plasma/Serum Alcohol < 0.01 % (0-0.07) 09/02/18 12:35 Nutrition/Malnutrition Assess - Dietary Evaluation Nutrition/Malnutrition Findings: Nutrition Notes Start: 09/06/18 15:28 Freq: Status: Active Protocol: Document 09/17/18 11:10 TW (Rec: 09/17/18 14:19 TW [id number]) Co-Sign 09/17/18 11:10 OL Nutrition Notes Initial or Follow up Reassessment Current Diagnosis Acute Kidney Injury COPD Sepsis Respiratory Failure Stroke Current Diet Mechanical Soft Labs/Tests K 3.2 Pertinent Medications Prednisone Height 5 ft 9 in Weight 93.5 kg [place] Body Weight (kg) 72.72 BMI 30.4 Subjective/Other Information F/U for stable TF/ wt. Noted that pt had a diet advancement to mechanical soft. Pt reports eating 50% of trays and tolerating his diet well. Pt reports wanting extra milk/ chocolate milk on trays. Pt reports not wanting ONS, general internist dropped off one chocolate Ensure Enlive for pt to try. Percent of energy/protein needs met: 64%/50% Burn Absent Trauma Absent #1 Nutrition Diagnosis Inadequate oral intake As Evidenced by Signs and Symptoms diet advancement, pt eating 50 % of trays Diagnosis Progress(for reassessment Improved documentation) Is patient on ventilator? No Is Patient Ambulatory and/or Out of Bed Yes [facility] [ 2197.494 [id number]] Kcal/Kg value to use for calculation 18 Approximate Energy Requirements Using 1683 kcal/Kg Calculation Used for Recommendations Kcal/kg Additional Notes Pro: 94-112g/day (1-1.2g/kg) Fluid 1mL/kcal Nutrition Intervention Change Diet Order: Continue Mechanical soft Goal #1 Meet at least 75% of kcal and pro needs via PO intake Anticipated Discharge Needs: Unable to determine at this time Follow-Up By: 09/19/18 Additional Comments F/U PO intake/ need for ONS
[2018-09-17] MEDS: CEPHULAC PO SCH (22:15)
[2018-09-17] MEDS: LANTUS SUB-Q SCH (22:16)
[2018-09-18] MEDS: DUONEB *Not for PRN Use IH SCH ×4 (03:38→19:22)
[2018-09-18] MEDS: PROCTOSOL-HC PR SCH ×3 (06:20→21:54)
[2018-09-18] MEDS: HumaLOG SUB-Q SCH ×4 (07:21→22:43)
[2018-09-18] MEDS ORDERED: NACL 0.9% 500 ML 500 ML IV ONE (09:00)
[2018-09-18] MEDS: DELTASONE PO SCH (09:04)
[2018-09-18] MEDS: COLACE PO SCH ×2 (09:04→21:53)
[2018-09-18] MEDS: PROTONIX PO SCH (09:04)
[2018-09-18] MEDS: LOVENOX SUB-Q SCH (09:04)
[2018-09-18] MEDS: FLOMAX PO SCH (09:04)
[2018-09-18] MEDS: SODIUM CHLORIDE FLUSH SYRINGE 10 ML IV PRN ×2 (09:05→21:50)
[2018-09-18] MEDS: WELLBUTRIN PO SCH ×2 (09:08→21:53)
[2018-09-18] MEDS: PULMICORT IH SCH ×2 (09:54→19:22)
[2018-09-18] MEDS: BROVANA NEBU IH SCH ×2 (09:55→19:22)
--- NOTE | 2018-09-18 10:24 | Progress Note ---
Assessment and Plan Assessment and plan: 68 YO Male with Obesity Hypoventilation, COPD presents to ED for evaluation. Pt is confused, lethargic and unable to provide history. Pt history provided by his brother who is at bedside during exam and interview. As per brother, the patient has not returned phone calls over the past 4 days. As a result, the brother went to the home but the patient did not answer the door. Law Enforcement notified, and entry into the home was obtained. The patient was found down and covered in his own feces. Pt exhibited slurred speech, confusion. EMS notified and upon arrival, the patient was found to have a neurologic deficit. A code stroke was called, and the patient was transported to [facility]. Pt seen and evaluated in ED and found to have evidence of CVA as well as SIRS, Acidosis, and Encephalopathy. Pt admitted to telemetry and initiated on CVA protocol. He was intubated with concern for aspiration. Neurology consulted. Hypotension -GIVE NS fluids bolus x1 -d/C OLIVA Acute Metabolic encephalopathy - resolved - CT, MRI head negative for CVA Delirium - resolved Acute Hypoxic Respiratory failure, COPD exacerbation - Patient extubated on 09/11 - patient is off oxygen Hypernatremia - Resolved Rectal Bleed - Evaluated by GI and they decreased his due to hemorrhoid - H&H stable Aspiration Pneumonia - Finished antibiotics Obesity Hypoventilation syndrome - Oxygen support ETOH use disorder- pt denies but admits to tobacco use hYPOTHYRODISIM - On Synthroid Moderate Protien calorie Malnutrition - nutrition consult -Discontinue NG tube and start feeding as recommended by dietitian. Secondary Coagulopathy ?UNDERLYING LIVER DISEASE VS IATROGENIC MEDICATION - Supportive care Sepsis - Resolved Tobacco use disorder per hx; counsell when stable Patient is on folic cath is placed by urology. Dysphagia; on mechanical soft diet per ST. Diabetes mellitus - on basal and sliding scale insulin At this time pending discharge placement History Interval history: Patient seen and examined, tolerating diet. no dizziness, no chest pain, continues to show clinical improvement Hospitalist Physical - Physical exam Narrative exam: VITAL SIGNS: Reviewed. GENERAL: The patient appeared no acute distress. Vital signs as documented. HEAD: No signs of head trauma. EYES: Pupils are equal. Extraocular motions intact. EARS: Hearing grossly intact. MOUTH: Oropharynx is normal. NECK: No adenopathy, no JVD. CHEST: Chest with crackles breath sounds bilaterally. No wheezes, rales, or rhonchi. CARDIAC: Regular rate and rhythm. S1 and S2, without murmurs, gallops, or rubs. VASCULAR: No Edema. Peripheral pulses normal and equal in all extremities. ABDOMEN: Soft, without detectable tenderness. No sign of distention. No rebound or guarding, and no masses palpated. Bowel Sounds normal. MUSCULOSKELETAL: Good range of motion of all major joints. Extremities without clubbing, cyanosis or edema. NEUROLOGIC EXAM: Alert and oriented x to person and place. No focal sensory or strength deficits. Speech normal. Follows commands. PSYCHIATRIC: Mood normal. SKIN: No rash or lesions. - Constitutional Vitals: Temp Pulse Resp BP Pulse Ox 98.3 F 69 20 89/52 92 09/18/18 07:34 09/18/18 07:34 09/18/18 07:34 09/18/18 07:34 09/18/18 07:34 General appearance: Present: mild distress, obese, disheveled Results - Labs CBC & Chem 7: 09/17/18 04:52 09/17/18 04:52 Labs: Laboratory Last Values WBC 7.3 K/mm3 (4.5-11.0) 09/17/18 04:52 RBC 4.75 M/mm3 (3.65-5.03) 09/17/18 04:52 Hgb 14.3 gm/dl (11.8-15.2) 09/17/18 04:52 Hct 43.3 % (35.5-45.6) 09/17/18 04:52 MCV 91 fl (84-94) 09/17/18 04:52 MCH 30 pg (28-32) 09/17/18 04:52 MCHC 33 % (32-34) 09/17/18 04:52 RDW 14.8 % (13.2-15.2) 09/17/18 04:52 Plt Count 112 K/mm3 (140-440) L 09/17/18 04:52 Lymph % (Auto) 11.8 % (13.4-35.0) L 09/04/18 05:20 [place] % (Auto) 6.8 % (0.0-7.3) 09/04/18 05:20 Eos % (Auto) 1.0 % (0.0-4.3) 09/04/18 05:20 Baso % (Auto) 0.3 % (0.0-1.8) 09/04/18 05:20 Lymph # 0.8 K/mm3 (1.2-5.4) L 09/04/18 05:20 [place] # 0.5 K/mm3 (0.0-0.8) 09/04/18 05:20 Eos # 0.1 K/mm3 (0.0-0.4) 09/04/18 05:20 Baso # 0.0 K/mm3 (0.0-0.1) 09/04/18 05:20 Add Manual Diff Complete 09/17/18 04:52 Total Counted 100 09/17/18 04:52 Seg Neutrophils % Rug Scratcher 09/13/18 04:41 Seg Neuts % (Manual) 72.0 % (40.0-70.0) H 09/17/18 04:52 Band Neutrophils % 5.0 % 09/17/18 04:52 Lymphocytes % (Manual) 16.0 % (13.4-35.0) 09/17/18 04:52 Reactive Lymphs % (Man) 0 % 09/17/18 04:52 Monocytes % (Manual) 1.0 % (0.0-7.3) 09/17/18 04:52 Eosinophils % (Manual) 3.0 % (0.0-4.3) 09/17/18 04:52 Basophils % (Manual) 0 % (0.0-1.8) 09/17/18 04:52 Metamyelocytes % 2.0 % 09/17/18 04:52 Myelocytes % 1.0 % 09/17/18 04:52 Promyelocytes % 0 % 09/17/18 04:52 Blast Cells % 0 % 09/17/18 04:52 Nucleated RBC % Not Reportable 09/17/18 04:52 Seg Neutrophils # 5.5 K/mm3 (1.8-7.7) 09/04/18 05:20 Seg Neutrophils # Man 5.3 K/mm3 (1.8-7.7) 09/17/18 04:52 Band Neutrophils # 0.4 K/mm3 09/17/18 04:52 Lymphocytes # (Manual) 1.2 K/mm3 (1.2-5.4) 09/17/18 04:52 Abs React Lymphs (Man) 0.0 K/mm3 09/17/18 04:52 Monocytes # (Manual) 0.1 K/mm3 (0.0-0.8) 09/17/18 04:52 Eosinophils # (Manual) 0.2 K/mm3 (0.0-0.4) 09/17/18 04:52 Basophils # (Manual) 0.0 K/mm3 (0.0-0.1) 09/17/18 04:52 Metamyelocytes # 0.1 K/mm3 09/17/18 04:52 Myelocytes # 0.1 K/mm3 09/17/18 04:52 Promyelocytes # 0.0 K/mm3 09/17/18 04:52 Blast Cells # 0.0 K/mm3 09/17/18 04:52 WBC Morphology Not Reportable 09/17/18 04:52 Hypersegmented Neuts Not Reportable 09/17/18 04:52 Hyposegmented Neuts Not Reportable 09/17/18 04:52 Hypogranular Neuts Not Reportable 09/17/18 04:52 Smudge Cells Not Reportable 09/17/18 04:52 Toxic Granulation Not Reportable 09/17/18 04:52 Toxic Vacuolation Not Reportable 09/17/18 04:52 Dohle Bodies Not Reportable 09/17/18 04:52 Pelger-Huet Anomaly Not Reportable 09/17/18 04:52 Tony Rods Not Reportable 09/17/18 04:52 Platelet Estimate Appears normal 09/17/18 04:52 Clumped Platelets Not Reportable 09/17/18 04:52 Plt Clumps, EDTA Not Reportable 09/17/18 04:52 Large Platelets Not Reportable 09/17/18 04:52 Giant Platelets Not Reportable 09/17/18 04:52 Platelet Satelliting Not Reportable 09/17/18 04:52 Plt Morphology Comment Not Reportable 09/17/18 04:52 RBC Morphology Not Reportable 09/17/18 04:52 Dimorphic RBCs Not Reportable 09/17/18 04:52 Polychromasia Not Reportable 09/17/18 04:52 Hypochromasia Not Reportable 09/17/18 04:52 Poikilocytosis Not Reportable 09/17/18 04:52 Anisocytosis Not Reportable 09/17/18 04:52 Microcytosis Not Reportable 09/17/18 04:52 Macrocytosis Not Reportable 09/17/18 04:52 Spherocytes Not Reportable 09/17/18 04:52 Pappenheimer Bodies Not Reportable 09/17/18 04:52 Sickle Cells Not Reportable 09/17/18 04:52 Target Cells Not Reportable 09/17/18 04:52 Tear Drop Cells Not Reportable 09/17/18 04:52 Ovalocytes Not Reportable 09/17/18 04:52 Stomatocytes 1+ 09/17/18 04:52 Helmet Cells Not Reportable 09/17/18 04:52 [place] Bodies Not Reportable 09/17/18 04:52 [place] Rings Not Reportable 09/17/18 04:52 Aleksandr Cells Not Reportable 09/17/18 04:52 Bite Cells Not Reportable 09/17/18 04:52 Crenated Cell Not Reportable 09/17/18 04:52 Elliptocytes Not Reportable 09/17/18 04:52 Acanthocytes (Spur) Not Reportable 09/17/18 04:52 Rouleaux Not Reportable 09/17/18 04:52 Hemoglobin C Crystals Not Reportable 09/17/18 04:52 Schistocytes Not Reportable 09/17/18 04:52 Malaria parasites Not Reportable 09/17/18 04:52 Tejinder Bodies Not Reportable 09/17/18 04:52 Hem Pathologist Commnt No 09/17/18 04:52 PT 13.2 Sec. (12.2-14.9) 09/14/18 13:25 INR 0.96 (0.87-1.13) 09/14/18 13:25 APTT 32.5 Sec. (24.2-36.6) 09/02/18 12:35 D-Dimer 4180.35 ng/mlDDU (0-234) H 09/02/18 12:35 POC ABG pH 7.534 (7.35-7.45) H 09/12/18 05:29 POC ABG pCO2 50.4 (35-45) H 09/12/18 05:29 POC ABG pO2 86 (80-105) 09/12/18 05:29 POC ABG HCO3 42.5 09/12/18 05:29 POC ABG Total CO2 44 09/12/18 05:29 POC ABG O2 Sat 97 09/12/18 05:29 POC ABG Base Excess 20 09/12/18 05:29 FiO2 40 % 09/12/18 05:29 Sodium 140 mmol/L (137-145) 09/17/18 04:52 Potassium 3.2 mmol/L (3.6-5.0) L D 09/17/18 04:52 Chloride 97.6 mmol/L (98-107) L 09/17/18 04:52 Carbon Dioxide 33 mmol/L (22-30) H 09/17/18 04:52 Anion Gap 13 mmol/L 09/17/18 04:52 BUN 29 mg/dL (9-20) H 09/17/18 04:52 Creatinine 0.7 mg/dL (0.8-1.5) L 09/17/18 04:52 Estimated GFR > 60 ml/min 09/17/18 04:52 BUN/Creatinine Ratio 41 % 09/17/18 04:52 Glucose 80 mg/dL (75-100) 09/17/18 04:52 POC Glucose 139 (70-105) H 09/18/18 07:23 Lactic Acid 1.40 mmol/L (0.7-2.0) 09/06/18 21:58 Calcium 9.3 mg/dL (8.4-10.2) 09/17/18 04:52 Magnesium 2.40 mg/dL (1.7-2.3) H 09/11/18 23:44 Total Bilirubin 0.70 mg/dL (0.1-1.2) 09/17/18 04:52 Direct Bilirubin < 0.2 mg/dL (0-0.2) 09/03/18 11:26 Indirect Bilirubin 0.3 mg/dL 09/02/18 13:36 AST 46 units/L (5-40) H 09/17/18 04:52 ALT 106 units/L (7-56) H 09/17/18 04:52 Alkaline Phosphatase 84 units/L (35-129) 09/17/18 04:52 Ammonia 58.0 umol/L (25-60) 09/06/18 05:10 Total Creatine Kinase 98 units/L (55-170) 09/02/18 13:36 Troponin T 0.018 ng/mL (0.00-0.029) 09/02/18 13:36 C-Reactive Protein 9.00 mg/dL (0.00-1.30) H 09/06/18 21:58 NT-Pro-B Natriuret Pep 873.7 pg/mL (0-900) 09/02/18 13:36 Total Protein 5.0 g/dL (6.3-8.2) L 09/17/18 04:52 Albumin 2.4 g/dL (3.9-5) L 09/17/18 04:52 Albumin/Globulin Ratio 0.9 % 09/17/18 04:52 Triglycerides 150 mg/dL (2-149) H 09/03/18 Unknown Cholesterol 116 mg/dL (50-199) 09/03/18 Unknown LDL Cholesterol Direct 69 mg/dL (50-130) 09/03/18 Unknown HDL Cholesterol 21 mg/dL (40-59) L 09/03/18 Unknown Cholesterol/HDL Ratio 5.52 % 09/03/18 Unknown Lipase 81 units/L (13-60) H 09/02/18 13:36 TSH < 0.005 mlU/mL (0.270-4.200) L 09/02/18 16:45 Free T4 2.40 ng/dL (0.76-1.46) H 09/02/18 16:45 Urine Color [place] (Yellow) 09/08/18 00:14 Urine Turbidity Cloudy (Clear) 09/08/18 00:14 Urine pH 5.0 (5.0-7.0) 09/08/18 00:14 Ur Specific [place] 1.019 (1.003-1.030) 09/08/18 00:14 Urine Protein 30 mg/dl mg/dL (Negative) 09/08/18 00:14 Urine Glucose (UA) Neg mg/dL (Negative) 09/08/18 00:14 Urine Ketones Neg mg/dL (Negative) 09/08/18 00:14 Urine Blood Lg (Negative) 09/08/18 00:14 Urine Nitrite Neg (Negative) 09/08/18 00:14 Urine Bilirubin Neg (Negative) 09/08/18 00:14 Urine Urobilinogen 4.0 mg/dL (<2.0) 09/08/18 00:14 Ur Leukocyte Esterase Neg (Negative) 09/08/18 00:14 Urine WBC (Auto) 41.0 /HPF (0.0-6.0) H 09/08/18 00:14 Urine RBC (Auto) > 182.0 /HPF (0.0-6.0) 09/08/18 00:14 U Epithel Cells (Auto) 8.0 /HPF (0-13.0) 09/08/18 00:14 Urine Bacteria (Auto) 2+ /HPF (Negative) 09/08/18 00:14 Ur Transition Epith Cell 1 /HPF 09/08/18 00:14 Amorphous Crystals 3+ 09/08/18 00:14 Hyaline Casts 99 /LPF 09/08/18 00:14 Urine Mucus 2+ /HPF 09/08/18 00:14 Salicylates < 0.3 mg/dL (2.8-20.0) L 09/02/18 12:35 Urine Opiates Screen Presumptive negative 09/02/18 13:59 Urine Methadone Screen Presumptive negative 09/02/18 13:59 Acetaminophen < 5.0 ug/mL (10.0-30.0) L 09/02/18 12:35 Ur Barbiturates Screen Presumptive negative 09/02/18 13:59 Ur Phencyclidine Scrn Presumptive negative 09/02/18 13:59 Ur Amphetamines Screen Presumptive negative 09/02/18 13:59 U Benzodiazepines Scrn Presumptive negative 09/02/18 13:59 Urine Cocaine Screen Presumptive negative 09/02/18 13:59 U Marijuana (THC) Screen Presumptive negative 09/02/18 13:59 Drugs of Abuse Note Disclamer 09/02/18 13:59 Plasma/Serum Alcohol < 0.01 % (0-0.07) 09/02/18 12:35 Nutrition/Malnutrition Assess - Dietary Evaluation Nutrition/Malnutrition Findings: Nutrition Notes Start: 09/06/18 15:28 Freq: Status: Active Protocol: Document 09/17/18 11:10 TW (Rec: 09/17/18 14:19 TW [id number]) Co-Sign 09/17/18 11:10 OL Nutrition Notes Initial or Follow up Reassessment Current Diagnosis Acute Kidney Injury COPD Sepsis Respiratory Failure Stroke Current Diet Mechanical Soft Labs/Tests K 3.2 Pertinent Medications Prednisone Height 5 ft 9 in Weight 93.5 kg [place] Body Weight (kg) 72.72 BMI 30.4 Subjective/Other Information F/U for stable TF/ wt. Noted that pt had a diet advancement to mechanical soft. Pt reports eating 50% of trays and tolerating his diet well. Pt reports wanting extra milk/ chocolate milk on trays. Pt reports not wanting ONS, chief internal auditor dropped off one chocolate Ensure Enlive for pt to try. Percent of energy/protein needs met: 64%/50% Burn Absent Trauma Absent #1 Nutrition Diagnosis Inadequate oral intake As Evidenced by Signs and Symptoms diet advancement, pt eating 50 % of trays Diagnosis Progress(for reassessment Improved documentation) Is patient on ventilator? No Is Patient Ambulatory and/or Out of Bed Yes REE-([place]. or-ambulatory/OOB) [ 2197.494 [id number]] Kcal/Kg value to use for calculation 18 Approximate Energy Requirements Using 1683 kcal/Kg Calculation Used for Recommendations Kcal/kg Additional Notes Pro: 94-112g/day (1-1.2g/kg) Fluid 1mL/kcal Nutrition Intervention Change Diet Order: Continue Mechanical soft Goal #1 Meet at least 75% of kcal and pro needs via PO intake Anticipated Discharge Needs: Unable to determine at this time Follow-Up By: 09/19/18 Additional Comments F/U PO intake/ need for ONS
[2018-09-18] MEDS ORDERED: NACL 0.9% 1000 ML 1,000 ML IV ONE (11:56)
--- NOTE | 2018-09-18 13:57 | Progress Note ---
Assessment and Plan Acute hypoxemic respiratory failure, now on mechanical ventilatory support. Acute chronic obstructive pulmonary disease exacerbation. Pneumonia, right lower lobe present at presentation, possibly aspiration. Obesity. Acute encephalopathy. Possible hyperthyroidism. Elevated serum ammonia, now resolved. Elevated D-dimer with a negative pulmonary embolism workup. Coagulopathy. Hyperglycemia. Acute kidney injury, resolved. Hypernatremia - seroquel iscontinued - off AB's - cleared for mechanical soft diet - continue bronchodilators with pulmonary hygiene per RT - continue mobility protocol for pressure ulcer prophylaxis - GI & VTE prophylaxis - glycemic control with SSI for target BG 140 - 180 mg/dL - resumed chronic disease medications - PT/OT as tolerated - continue other care per attending / other consultants ...... re-evaluate in am & prn ... care plan discussed with patient at bedside Subjective Date of service: 09/18/18 Principal diagnosis: Ac Hypoxemic Resp failure; AE-COPD; Pneumonia (Aspiration); Ac encephalopat Interval history: Patient is seen today for: Acute hypoxemic respiratory failure, now on mechanical ventilatory support; Acute chronic obstructive pulmonary disease exacerbation; Pneumonia, right lower lobe present at presentation, possibly aspiration; Obesity; Acute encephalopathy. Seen and examined at bedside; 24hour events reviewed; nursing and respiratory care staff consulted; no adverse overnight events reported to me; resting peacefully in bed; denies acute chest pains or palpitations; no N/V/F/C; off oxygen; no new issues otherwise Objective Vital Signs - 12hr 09/18/18 09/18/18 09/18/18 02:11 02:12 07:34 Temperature 97.2 F L 98.3 F Pulse Rate 71 69 69 Pulse Rate [ Anterior Bilateral Throughout] Pulse Rate [ From Monitor] Respiratory 20 20 Rate Respiratory Rate [Anterior Bilateral Throughout] Blood Pressure 105/56 89/52 O2 Sat by Pulse 89 92 92 Oximetry 09/18/18 09/18/18 09/18/18 09:20 10:00 13:34 Temperature 97.6 F Pulse Rate 75 Pulse Rate [ 80 Anterior Bilateral Throughout] Pulse Rate [ 69 From Monitor] Respiratory 16 20 Rate Respiratory 20 Rate [Anterior Bilateral Throughout] Blood Pressure 111/72 O2 Sat by Pulse 93 93 Oximetry Constitutional: appears uncomfortable, other (elderly looking CM, normocephalica nd atraumatic with mildly increased resp effort on MVS) Eyes: non-icteric ENT: oropharynx moist, other (extubated) Neck: supple, no lymphadenopathy, no JVD, other (large neck circumference) Effort: mildly labored Ascultation: Bilateral: diminished breath sounds, rhonchi Percussion: Bilateral: not dull Cardiovascular: regular rate and rhythm Gastrointestinal: normoactive bowel sounds, soft, non-tender, non-distended Integumentary: normal Extremities: no cyanosis, no edema, pink and warm, pulses normal Neurologic: non-focal exam, pupils equal and round, motor strength normal and, other (encephalopathic) Psychiatric: other (unable to assess) CBC and BMP: 09/19/18 03:52 09/19/18 05:34 ABG, PT/INR, D-dimer: ABG POC ABG pH 7.534 (7.35-7.45) H 09/12/18 05:29 POC ABG pCO2 50.4 (35-45) H 09/12/18 05:29 POC ABG pO2 86 (80-105) 09/12/18 05:29 POC ABG HCO3 42.5 09/12/18 05:29 POC ABG Total CO2 44 09/12/18 05:29 POC ABG O2 Sat 97 09/12/18 05:29 PT/INR, D-dimer PT 13.2 Sec. (12.2-14.9) 09/14/18 13:25 INR 0.96 (0.87-1.13) 09/14/18 13:25 D-Dimer 4180.35 ng/mlDDU (0-234) H 09/02/18 12:35 Abnormal lab findings: Abnormal Labs 09/02/18 09/02/18 09/02/18 12:35 12:35 12:35 WBC RBC 6.15 H Hgb 18.7 H Hct 57.7 H MCV RDW 15.5 H Plt Count Lymph % (Auto) 8.8 L Lymph # 0.9 L Seg Neutrophils % 83.2 H Seg Neuts % (Manual) Lymphocytes % (Manual) Seg Neutrophils # 8.9 H Seg Neutrophils # Man Lymphocytes # (Manual) PT 20.8 H INR 1.74 H D-Dimer 4180.35 H POC ABG pH POC ABG pCO2 POC ABG pO2 Sodium Potassium Chloride Carbon Dioxide BUN Creatinine Glucose POC Glucose Lactic Acid Calcium Magnesium Total Bilirubin Direct Bilirubin AST ALT Ammonia C-Reactive Protein Total Protein Albumin Triglycerides HDL Cholesterol Lipase TSH Free T4 Urine WBC (Auto) Salicylates < 0.3 L Acetaminophen 09/02/18 09/02/18 09/02/18 12:35 12:35 12:35 WBC RBC Hgb Hct MCV RDW Plt Count Lymph % (Auto) Lymph # Seg Neutrophils % Seg Neuts % (Manual) Lymphocytes % (Manual) Seg Neutrophils # Seg Neutrophils # Man Lymphocytes # (Manual) PT INR D-Dimer POC ABG pH POC ABG pCO2 POC ABG pO2 Sodium Potassium Chloride Carbon Dioxide BUN Creatinine Glucose POC Glucose 167 H Lactic Acid 3.20 H* Calcium Magnesium Total Bilirubin Direct Bilirubin AST ALT Ammonia C-Reactive Protein Total Protein Albumin Triglycerides HDL Cholesterol Lipase TSH Free T4 Urine WBC (Auto) Salicylates Acetaminophen < 5.0 L 09/02/18 09/02/18 09/02/18 13:36 14:40 16:45 WBC RBC Hgb Hct MCV RDW Plt Count Lymph % (Auto) Lymph # Seg Neutrophils % Seg Neuts % (Manual) Lymphocytes % (Manual) Seg Neutrophils # Seg Neutrophils # Man Lymphocytes # (Manual) PT INR D-Dimer POC ABG pH POC ABG pCO2 POC ABG pO2 Sodium 159 H Potassium Chloride 114.7 H Carbon Dioxide BUN 90 H Creatinine Glucose 172 H POC Glucose Lactic Acid 2.30 H* Calcium 10.8 H Magnesium Total Bilirubin Direct Bilirubin 0.3 H AST ALT Ammonia C-Reactive Protein Total Protein Albumin 2.6 L Triglycerides HDL Cholesterol Lipase 81 H TSH < 0.005 L Free T4 2.40 H Urine WBC (Auto) Salicylates Acetaminophen 09/03/18 09/03/18 09/03/18 11:26 11:26 11:26 WBC RBC Hgb Hct MCV RDW Plt Count Lymph % (Auto) Lymph # Seg Neutrophils % Seg Neuts % (Manual) Lymphocytes % (Manual) Seg Neutrophils # Seg Neutrophils # Man Lymphocytes # (Manual) PT 21.8 H INR 1.86 H D-Dimer POC ABG pH POC ABG pCO2 POC ABG pO2 Sodium 160 H Potassium Chloride 122.6 H Carbon Dioxide BUN 69 H Creatinine Glucose 127 H POC Glucose Lactic Acid Calcium Magnesium Total Bilirubin Direct Bilirubin AST ALT Ammonia C-Reactive Protein Total Protein Albumin 2.1 L Triglycerides HDL Cholesterol Lipase TSH Free T4 Urine WBC (Auto) Salicylates Acetaminophen 0109/03/18 09/03/18 11:26 15:39 20:23 WBC RBC Hgb Hct MCV RDW Plt Count Lymph % (Auto) Lymph # Seg Neutrophils % Seg Neuts % (Manual) Lymphocytes % (Manual) Seg Neutrophils # Seg Neutrophils # Man Lymphocytes # (Manual) PT INR D-Dimer POC ABG pH POC ABG pCO2 POC ABG pO2 Sodium 160 H 160 H Potassium Chloride Carbon Dioxide BUN Creatinine Glucose POC Glucose Lactic Acid Calcium Magnesium Total Bilirubin Direct Bilirubin AST ALT Ammonia 75.0 H C-Reactive Protein Total Protein Albumin Triglycerides HDL Cholesterol Lipase TSH Free T4 Urine WBC (Auto) Salicylates Acetaminophen 09/03/18 09/04/18 09/04/18 Unknown 02:38 05:20 WBC RBC Hgb Hct MCV RDW Plt Count Lymph % (Auto) Lymph # Seg Neutrophils % Seg Neuts % (Manual) Lymphocytes % (Manual) Seg Neutrophils # Seg Neutrophils # Man Lymphocytes # (Manual) PT INR D-Dimer POC ABG pH POC ABG pCO2 POC ABG pO2 Sodium 160 H 166 H* Potassium Chloride 129.2 H Carbon Dioxide BUN 57 H Creatinine Glucose 137 H POC Glucose Lactic Acid Calcium Magnesium Total Bilirubin Direct Bilirubin AST ALT Ammonia C-Reactive Protein Total Protein 5.8 L Albumin 2.7 L Triglycerides 150 H HDL Cholesterol 21 L Lipase TSH Free T4 Urine WBC (Auto) Salicylates Acetaminophen 09/04/18 09/04/18 09/04/18 05:20 09:11 13:35 WBC RBC 5.12 H Hgb 15.5 H D 15.6 H Hct 48.0 H D 48.1 H MCV RDW 15.9 H Plt Count Lymph % (Auto) 11.8 L Lymph # 0.8 L Seg Neutrophils % 80.1 H Seg Neuts % (Manual) Lymphocytes % (Manual) Seg Neutrophils # Seg Neutrophils # Man Lymphocytes # (Manual) PT INR D-Dimer POC ABG pH POC ABG pCO2 POC ABG pO2 Sodium 166 H* Potassium Chloride Carbon Dioxide BUN Creatinine Glucose POC Glucose Lactic Acid Calcium Magnesium Total Bilirubin Direct Bilirubin AST ALT Ammonia C-Reactive Protein Total Protein Albumin Triglycerides HDL Cholesterol Lipase TSH Free T4 Urine WBC (Auto) Salicylates Acetaminophen 09/04/18 09/04/18 09/04/18 13:35 21:04 21:04 WBC RBC Hgb 16.9 H Hct 58.3 H D MCV RDW Plt Count Lymph % (Auto) Lymph # Seg Neutrophils % Seg Neuts % (Manual) Lymphocytes % (Manual) Seg Neutrophils # Seg Neutrophils # Man Lymphocytes # (Manual) PT INR D-Dimer POC ABG pH POC ABG pCO2 POC ABG pO2 Sodium 164 H* 159 H Potassium Chloride Carbon Dioxide BUN Creatinine Glucose POC Glucose Lactic Acid Calcium Magnesium Total Bilirubin Direct Bilirubin AST ALT Ammonia C-Reactive Protein Total Protein Albumin Triglycerides HDL Cholesterol Lipase TSH Free T4 Urine WBC (Auto) Salicylates Acetaminophen 09/05/18 09/05/18 09/05/18 01:11 02:51 03:17 WBC RBC Hgb Hct MCV RDW Plt Count Lymph % (Auto) Lymph # Seg Neutrophils % Seg Neuts % (Manual) Lymphocytes % (Manual) Seg Neutrophils # Seg Neutrophils # Man Lymphocytes # (Manual) PT INR D-Dimer POC ABG pH 7.340 L POC ABG pCO2 57.8 H POC ABG pO2 74 L Sodium 152 H Potassium Chloride Carbon Dioxide BUN Creatinine Glucose POC Glucose 116 H Lactic Acid Calcium Magnesium Total Bilirubin Direct Bilirubin AST ALT Ammonia C-Reactive Protein Total Protein Albumin Triglycerides HDL Cholesterol Lipase TSH Free T4 Urine WBC (Auto) Salicylates Acetaminophen 09/05/18 09/05/18 09/05/18 07:45 10:34 15:21 WBC RBC Hgb Hct MCV RDW Plt Count Lymph % (Auto) Lymph # Seg Neutrophils % Seg Neuts % (Manual) Lymphocytes % (Manual) Seg Neutrophils # Seg Neutrophils # Man Lymphocytes # (Manual) PT INR D-Dimer POC ABG pH POC ABG pCO2 POC ABG pO2 Sodium 156 H 153 H Potassium Chloride Carbon Dioxide BUN Creatinine Glucose POC Glucose Lactic Acid Calcium Magnesium Total Bilirubin Direct Bilirubin AST ALT Ammonia 61.0 H C-Reactive Protein Total Protein Albumin Triglycerides HDL Cholesterol Lipase TSH Free T4 Urine WBC (Auto) Salicylates Acetaminophen 09/06/18 09/06/18 09/06/18 05:10 05:10 08:43 WBC RBC 5.06 H Hgb Hct 47.8 H D MCV RDW 15.3 H Plt Count Lymph % (Auto) Lymph # Seg Neutrophils % Seg Neuts % (Manual) Lymphocytes % (Manual) Seg Neutrophils # Seg Neutrophils # Man Lymphocytes # (Manual) PT INR D-Dimer POC ABG pH POC ABG pCO2 POC ABG pO2 Sodium 155 H 150 H Potassium Chloride 117.0 H Carbon Dioxide BUN 36 H Creatinine Glucose 143 H POC Glucose Lactic Acid Calcium Magnesium Total Bilirubin Direct Bilirubin AST ALT Ammonia C-Reactive Protein Total Protein Albumin Triglycerides HDL Cholesterol Lipase TSH Free T4 Urine WBC (Auto) Salicylates Acetaminophen 09/06/18 09/06/18 09/06/18 13:21 15:11 16:23 WBC RBC Hgb Hct MCV RDW Plt Count Lymph % (Auto) Lymph # Seg Neutrophils % Seg Neuts % (Manual) Lymphocytes % (Manual) Seg Neutrophils # Seg Neutrophils # Man Lymphocytes # (Manual) PT INR D-Dimer POC ABG pH POC ABG pCO2 49.1 H POC ABG pO2 107 H Sodium 151 H Potassium Chloride Carbon Dioxide BUN Creatinine Glucose POC Glucose 120 H Lactic Acid Calcium Magnesium Total Bilirubin Direct Bilirubin AST ALT Ammonia C-Reactive Protein Total Protein Albumin Triglycerides HDL Cholesterol Lipase TSH Free T4 Urine WBC (Auto) Salicylates Acetaminophen 09/06/18 09/07/18 09/07/18 21:58 00:25 02:49 WBC RBC 5.32 H Hgb 16.1 H Hct 50.2 H MCV 95 H RDW 15.6 H Plt Count Lymph % (Auto) Lymph # Seg Neutrophils % Seg Neuts % (Manual) Lymphocytes % (Manual) Seg Neutrophils # Seg Neutrophils # Man Lymphocytes # (Manual) PT INR D-Dimer POC ABG pH POC ABG pCO2 POC ABG pO2 Sodium 150 H Potassium Chloride Carbon Dioxide BUN Creatinine Glucose POC Glucose Lactic Acid Calcium Magnesium Total Bilirubin Direct Bilirubin AST ALT Ammonia C-Reactive Protein 9.00 H Total Protein Albumin Triglycerides HDL Cholesterol Lipase TSH Free T4 Urine WBC (Auto) Salicylates Acetaminophen 09/07/18 09/07/18 09/07/18 02:49 03:43 09:17 WBC RBC Hgb Hct MCV RDW Plt Count Lymph % (Auto) Lymph # Seg Neutrophils % Seg Neuts % (Manual) Lymphocytes % (Manual) Seg Neutrophils # Seg Neutrophils # Man Lymphocytes # (Manual) PT INR D-Dimer POC ABG pH POC ABG pCO2 46.5 H POC ABG pO2 Sodium 149 H 155 H Potassium 5.2 H D Chloride 116.1 H Carbon Dioxide 21 L BUN 47 H Creatinine Glucose 122 H POC Glucose Lactic Acid Calcium Magnesium Total Bilirubin 1.80 H Direct Bilirubin AST 83 H ALT Ammonia C-Reactive Protein Total Protein Albumin 1.8 L Triglycerides HDL Cholesterol Lipase TSH Free T4 Urine WBC (Auto) Salicylates Acetaminophen 09/07/18 09/08/18 09/08/18 16:02 00:14 00:51 WBC RBC Hgb Hct MCV RDW Plt Count Lymph % (Auto) Lymph # Seg Neutrophils % Seg Neuts % (Manual) Lymphocytes % (Manual) Seg Neutrophils # Seg Neutrophils # Man Lymphocytes # (Manual) PT INR D-Dimer POC ABG pH POC ABG pCO2 POC ABG pO2 Sodium 156 H 154 H Potassium Chloride Carbon Dioxide BUN Creatinine Glucose POC Glucose Lactic Acid Calcium Magnesium Total Bilirubin Direct Bilirubin AST ALT Ammonia C-Reactive Protein Total Protein Albumin Triglycerides HDL Cholesterol Lipase TSH Free T4 Urine WBC (Auto) 41.0 H Salicylates Acetaminophen 09/08/18 09/08/18 09/08/18 04:22 04:22 04:46 WBC RBC Hgb Hct MCV 95 H RDW 15.3 H Plt Count Lymph % (Auto) Lymph # Seg Neutrophils % Seg Neuts % (Manual) Lymphocytes % (Manual) Seg Neutrophils # Seg Neutrophils # Man Lymphocytes # (Manual) PT INR D-Dimer POC ABG pH POC ABG pCO2 55.3 H POC ABG pO2 77 L Sodium 153 H Potassium 3.5 L D Chloride 114.8 H Carbon Dioxide BUN 69 H Creatinine Glucose 277 H POC Glucose Lactic Acid Calcium Magnesium Total Bilirubin Direct Bilirubin AST 44 H ALT Ammonia C-Reactive Protein Total Protein 5.6 L Albumin 2.4 L Triglycerides HDL Cholesterol Lipase TSH Free T4 Urine WBC (Auto) Salicylates Acetaminophen 09/08/18 09/08/18 09/08/18 08:40 12:03 15:43 WBC RBC Hgb Hct MCV RDW Plt Count Lymph % (Auto) Lymph # Seg Neutrophils % Seg Neuts % (Manual) Lymphocytes % (Manual) Seg Neutrophils # Seg Neutrophils # Man Lymphocytes # (Manual) PT INR D-Dimer POC ABG pH POC ABG pCO2 POC ABG pO2 Sodium 154 H 152 H Potassium Chloride Carbon Dioxide BUN Creatinine Glucose POC Glucose 186 H Lactic Acid Calcium Magnesium Total Bilirubin Direct Bilirubin AST ALT Ammonia C-Reactive Protein Total Protein Albumin Triglycerides HDL Cholesterol Lipase TSH Free T4 Urine WBC (Auto) Salicylates Acetaminophen 09/08/18 09/08/18 09/09/18 17:57 23:54 04:01 WBC RBC Hgb Hct MCV 95 H RDW 15.3 H Plt Count 130 L Lymph % (Auto) Lymph # Seg Neutrophils % Seg Neuts % (Manual) Lymphocytes % (Manual) Seg Neutrophils # Seg Neutrophils # Man Lymphocytes # (Manual) PT INR D-Dimer POC ABG pH POC ABG pCO2 POC ABG pO2 Sodium Potassium Chloride Carbon Dioxide BUN Creatinine Glucose POC Glucose 252 H 297 H Lactic Acid Calcium Magnesium Total Bilirubin Direct Bilirubin AST ALT Ammonia C-Reactive Protein Total Protein Albumin Triglycerides HDL Cholesterol Lipase TSH Free T4 Urine WBC (Auto) Salicylates Acetaminophen 09/09/18 09/09/18 09/09/18 04:01 04:33 05:32 WBC RBC Hgb Hct MCV RDW Plt Count Lymph % (Auto) Lymph # Seg Neutrophils % Seg Neuts % (Manual) Lymphocytes % (Manual) Seg Neutrophils # Seg Neutrophils # Man Lymphocytes # (Manual) PT INR D-Dimer POC ABG pH 7.267 L POC ABG pCO2 76.6 H POC ABG pO2 69 L Sodium 150 H Potassium Chloride 110.9 H Carbon Dioxide 32 H BUN 62 H Creatinine Glucose 220 H POC Glucose 196 H Lactic Acid Calcium 10.3 H Magnesium Total Bilirubin Direct Bilirubin AST ALT Ammonia C-Reactive Protein Total Protein Albumin Triglycerides HDL Cholesterol Lipase TSH Free T4 Urine WBC (Auto) Salicylates Acetaminophen 09/09/18 09/09/18 09/09/18 11:40 17:57 23:36 WBC RBC Hgb Hct MCV RDW Plt Count Lymph % (Auto) Lymph # Seg Neutrophils % Seg Neuts % (Manual) Lymphocytes % (Manual) Seg Neutrophils # Seg Neutrophils # Man Lymphocytes # (Manual) PT INR D-Dimer POC ABG pH POC ABG pCO2 POC ABG pO2 Sodium Potassium Chloride Carbon Dioxide BUN Creatinine Glucose POC Glucose 217 H 172 H 131 H Lactic Acid Calcium Magnesium Total Bilirubin Direct Bilirubin AST ALT Ammonia C-Reactive Protein Total Protein Albumin Triglycerides HDL Cholesterol Lipase TSH Free T4 Urine WBC (Auto) Salicylates Acetaminophen 09/10/18 09/10/18 09/10/18 05:07 05:07 05:51 WBC RBC Hgb Hct MCV RDW Plt Count 115 L Lymph % (Auto) Lymph # Seg Neutrophils % Seg Neuts % (Manual) 95.0 H Lymphocytes % (Manual) 3.0 L Seg Neutrophils # Seg Neutrophils # Man Lymphocytes # (Manual) 0.2 L PT INR D-Dimer POC ABG pH POC ABG pCO2 POC ABG pO2 Sodium 146 H Potassium Chloride Carbon Dioxide 33 H BUN 46 H Creatinine 0.7 L Glucose 174 H POC Glucose 169 H Lactic Acid Calcium 10.3 H Magnesium Total Bilirubin Direct Bilirubin AST ALT Ammonia C-Reactive Protein Total Protein Albumin Triglycerides HDL Cholesterol Lipase TSH Free T4 Urine WBC (Auto) Salicylates Acetaminophen 09/10/18 09/10/18 09/10/18 14:25 15:02 17:48 WBC RBC Hgb Hct MCV RDW Plt Count Lymph % (Auto) Lymph # Seg Neutrophils % Seg Neuts % (Manual) Lymphocytes % (Manual) Seg Neutrophils # Seg Neutrophils # Man Lymphocytes # (Manual) PT INR D-Dimer POC ABG pH POC ABG pCO2 62.6 H POC ABG pO2 Sodium Potassium Chloride Carbon Dioxide BUN Creatinine Glucose POC Glucose 240 H 185 H Lactic Acid Calcium Magnesium Total Bilirubin Direct Bilirubin AST ALT Ammonia C-Reactive Protein Total Protein Albumin Triglycerides HDL Cholesterol Lipase TSH Free T4 Urine WBC (Auto) Salicylates Acetaminophen 09/10/18 09/11/18 09/11/18 23:28 04:25 04:38 WBC RBC Hgb Hct MCV RDW Plt Count Lymph % (Auto) Lymph # Seg Neutrophils % Seg Neuts % (Manual) Lymphocytes % (Manual) Seg Neutrophils # Seg Neutrophils # Man Lymphocytes # (Manual) PT INR D-Dimer POC ABG pH 7.487 H POC ABG pCO2 52.3 H POC ABG pO2 61 L Sodium 146 H Potassium Chloride Carbon Dioxide 37 H BUN 38 H Creatinine Glucose 254 H POC Glucose 132 H Lactic Acid Calcium 10.7 H Magnesium Total Bilirubin Direct Bilirubin AST ALT Ammonia C-Reactive Protein Total Protein Albumin Triglycerides HDL Cholesterol Lipase TSH Free T4 Urine WBC (Auto) Salicylates Acetaminophen 09/11/18 09/11/18 09/11/18 05:09 11:58 17:54 WBC RBC Hgb Hct MCV RDW Plt Count Lymph % (Auto) Lymph # Seg Neutrophils % Seg Neuts % (Manual) Lymphocytes % (Manual) Seg Neutrophils # Seg Neutrophils # Man Lymphocytes # (Manual) PT INR D-Dimer POC ABG pH 7.538 H POC ABG pCO2 50.4 H POC ABG pO2 78 L Sodium Potassium Chloride Carbon Dioxide BUN Creatinine Glucose POC Glucose 190 H 126 H Lactic Acid Calcium Magnesium Total Bilirubin Direct Bilirubin AST ALT Ammonia C-Reactive Protein Total Protein Albumin Triglycerides HDL Cholesterol Lipase TSH Free T4 Urine WBC (Auto) Salicylates Acetaminophen 09/11/18 09/12/18 09/12/18 23:44 05:29 05:36 WBC RBC Hgb Hct MCV RDW Plt Count Lymph % (Auto) Lymph # Seg Neutrophils % Seg Neuts % (Manual) Lymphocytes % (Manual) Seg Neutrophils # Seg Neutrophils # Man Lymphocytes # (Manual) PT INR D-Dimer POC ABG pH 7.534 H POC ABG pCO2 50.4 H POC ABG pO2 Sodium Potassium Chloride Carbon Dioxide BUN Creatinine Glucose POC Glucose 119 H Lactic Acid Calcium Magnesium 2.40 H Total Bilirubin Direct Bilirubin AST ALT Ammonia C-Reactive Protein Total Protein Albumin Triglycerides HDL Cholesterol Lipase TSH Free T4 Urine WBC (Auto) Salicylates Acetaminophen 09/12/18 09/12/18 09/12/18 08:05 08:05 17:10 WBC 11.7 H RBC Hgb Hct MCV RDW Plt Count 124 L Lymph % (Auto) Lymph # Seg Neutrophils % Seg Neuts % (Manual) 89.0 H Lymphocytes % (Manual) 9.0 L Seg Neutrophils # Seg Neutrophils # Man 10.4 H Lymphocytes # (Manual) 1.1 L PT INR D-Dimer POC ABG pH POC ABG pCO2 POC ABG pO2 Sodium Potassium Chloride 97.1 L Carbon Dioxide 38 H BUN 34 H Creatinine 0.7 L Glucose 127 H POC Glucose 134 H Lactic Acid Calcium 10.3 H Magnesium Total Bilirubin Direct Bilirubin AST ALT Ammonia C-Reactive Protein Total Protein Albumin Triglycerides HDL Cholesterol Lipase TSH Free T4 Urine WBC (Auto) Salicylates Acetaminophen 09/13/18 09/13/18 09/13/18 00:09 04:41 04:41 WBC 11.5 H RBC 5.15 H Hgb Hct 47.2 H MCV RDW Plt Count 129 L Lymph % (Auto) Lymph # Seg Neutrophils % Seg Neuts % (Manual) 89.0 H Lymphocytes % (Manual) 5.0 L Seg Neutrophils # Seg Neutrophils # Man 10.2 H Lymphocytes # (Manual) 0.6 L PT INR D-Dimer POC ABG pH POC ABG pCO2 POC ABG pO2 Sodium Potassium Chloride 96.6 L Carbon Dioxide 34 H BUN 38 H Creatinine Glucose 197 H POC Glucose 149 H Lactic Acid Calcium Magnesium Total Bilirubin Direct Bilirubin AST ALT Ammonia C-Reactive Protein Total Protein Albumin Triglycerides HDL Cholesterol Lipase TSH Free T4 Urine WBC (Auto) Salicylates Acetaminophen 09/13/18 09/13/18 09/14/18 05:10 17:16 05:51 WBC RBC Hgb Hct MCV RDW Plt Count Lymph % (Auto) Lymph # Seg Neutrophils % Seg Neuts % (Manual) Lymphocytes % (Manual) Seg Neutrophils # Seg Neutrophils # Man Lymphocytes # (Manual) PT INR D-Dimer POC ABG pH POC ABG pCO2 POC ABG pO2 Sodium Potassium Chloride Carbon Dioxide BUN Creatinine Glucose POC Glucose 199 H 220 H 204 H Lactic Acid Calcium Magnesium Total Bilirubin Direct Bilirubin AST ALT Ammonia C-Reactive Protein Total Protein Albumin Triglycerides HDL Cholesterol Lipase TSH Free T4 Urine WBC (Auto) Salicylates Acetaminophen 09/14/18 09/14/18 09/15/18 11:32 17:17 06:58 WBC RBC Hgb Hct MCV RDW Plt Count 121 L Lymph % (Auto) Lymph # Seg Neutrophils % Seg Neuts % (Manual) 81.0 H Lymphocytes % (Manual) Seg Neutrophils # Seg Neutrophils # Man Lymphocytes # (Manual) PT INR D-Dimer POC ABG pH POC ABG pCO2 POC ABG pO2 Sodium Potassium Chloride Carbon Dioxide BUN Creatinine Glucose POC Glucose 149 H 170 H Lactic Acid Calcium Magnesium Total Bilirubin Direct Bilirubin AST ALT Ammonia C-Reactive Protein Total Protein Albumin Triglycerides HDL Cholesterol Lipase TSH Free T4 Urine WBC (Auto) Salicylates Acetaminophen 09/15/18 09/15/18 09/16/18 06:58 17:18 06:43 WBC RBC Hgb Hct MCV RDW Plt Count Lymph % (Auto) Lymph # Seg Neutrophils % Seg Neuts % (Manual) Lymphocytes % (Manual) Seg Neutrophils # Seg Neutrophils # Man Lymphocytes # (Manual) PT INR D-Dimer POC ABG pH POC ABG pCO2 POC ABG pO2 Sodium Potassium 3.4 L Chloride 95.9 L Carbon Dioxide 35 H 32 H BUN 39 H 34 H Creatinine 0.7 L Glucose 104 H POC Glucose 113 H Lactic Acid Calcium Magnesium Total Bilirubin Direct Bilirubin AST 48 H 59 H ALT 95 H 114 H Ammonia C-Reactive Protein Total Protein 5.2 L 5.2 L Albumin 2.5 L 2.5 L Triglycerides HDL Cholesterol Lipase TSH Free T4 Urine WBC (Auto) Salicylates Acetaminophen 09/16/18 09/16/18 09/16/18 06:55 11:57 19:31 WBC RBC Hgb Hct MCV RDW Plt Count 99 L Lymph % (Auto) Lymph # Seg Neutrophils % Seg Neuts % (Manual) 76.0 H Lymphocytes % (Manual) Seg Neutrophils # Seg Neutrophils # Man Lymphocytes # (Manual) 1.0 L PT INR D-Dimer POC ABG pH POC ABG pCO2 POC ABG pO2 Sodium Potassium Chloride Carbon Dioxide BUN Creatinine Glucose POC Glucose 180 H 69 L Lactic Acid Calcium Magnesium Total Bilirubin Direct Bilirubin AST ALT Ammonia C-Reactive Protein Total Protein Albumin Triglycerides HDL Cholesterol Lipase TSH Free T4 Urine WBC (Auto) Salicylates Acetaminophen 09/16/18 09/16/18 09/17/18 20:44 23:38 04:52 WBC RBC Hgb Hct MCV RDW Plt Count 112 L Lymph % (Auto) Lymph # Seg Neutrophils % Seg Neuts % (Manual) 72.0 H Lymphocytes % (Manual) Seg Neutrophils # Seg Neutrophils # Man Lymphocytes # (Manual) PT INR D-Dimer POC ABG pH POC ABG pCO2 POC ABG pO2 Sodium Potassium Chloride Carbon Dioxide BUN Creatinine Glucose POC Glucose 144 H 138 H Lactic Acid Calcium Magnesium Total Bilirubin Direct Bilirubin AST ALT Ammonia C-Reactive Protein Total Protein Albumin Triglycerides HDL Cholesterol Lipase TSH Free T4 Urine WBC (Auto) Salicylates Acetaminophen 09/17/18 09/17/18 09/17/18 04:52 12:08 16:48 WBC RBC Hgb Hct MCV RDW Plt Count Lymph % (Auto) Lymph # Seg Neutrophils % Seg Neuts % (Manual) Lymphocytes % (Manual) Seg Neutrophils # Seg Neutrophils # Man Lymphocytes # (Manual) PT INR D-Dimer POC ABG pH POC ABG pCO2 POC ABG pO2 Sodium Potassium 3.2 L D Chloride 97.6 L Carbon Dioxide 33 H BUN 29 H Creatinine 0.7 L Glucose POC Glucose 112 H 196 H Lactic Acid Calcium Magnesium Total Bilirubin Direct Bilirubin AST 46 H ALT 106 H Ammonia C-Reactive Protein Total Protein 5.0 L Albumin 2.4 L Triglycerides HDL Cholesterol Lipase TSH Free T4 Urine WBC (Auto) Salicylates Acetaminophen 09/18/18 09/18/18 07:23 11:19 WBC RBC Hgb Hct MCV RDW Plt Count Lymph % (Auto) Lymph # Seg Neutrophils % Seg Neuts % (Manual) Lymphocytes % (Manual) Seg Neutrophils # Seg Neutrophils # Man Lymphocytes # (Manual) PT INR D-Dimer POC ABG pH POC ABG pCO2 POC ABG pO2 Sodium Potassium Chloride Carbon Dioxide BUN Creatinine Glucose POC Glucose 139 H 135 H Lactic Acid Calcium Magnesium Total Bilirubin Direct Bilirubin AST ALT Ammonia C-Reactive Protein Total Protein Albumin Triglycerides HDL Cholesterol Lipase TSH Free T4 Urine WBC (Auto) Salicylates Acetaminophen Allied health notes reviewed: nursing
--- NOTE | 2018-09-18 15:01 | Progress Note ---
Assessment and Plan - Patient Problems (1) Hypernatremia Current Visit: Yes Status: Acute Plan to address problem: Secondary to free water losses in the setting of decreased PO intake, now resolved. (2) Acute renal failure Current Visit: Yes Status: Acute Plan to address problem: Overall renal function stable. (3) Encephalopathy Current Visit: Yes Status: Acute Plan to address problem: Management per primary team. He is more awake this am but has had issues with agitation per nursing staff. (4) Hypercalcemia Current Visit: Yes Status: Acute Plan to address problem: due to dehydration, Ca improved with adequate hydration (5) Hypokalemia Current Visit: Yes Status: Acute Plan to address problem: s/p supplementation with KDur Subjective Date of service: 09/18/18 Principal diagnosis: Ac Hypoxemic Resp failure; AE-COPD; Pneumonia (Aspiration); Ac encephalopat Interval history: Pt awake, alert, in no acute respiratory distress this AM Objective - Vital Signs Vital signs: Vital Signs - 12hr 09/18/18 09/18/18 09/18/18 07:34 09:20 09:35 Temperature 98.3 F Pulse Rate 69 Pulse Rate [ 80 84 Anterior Bilateral Throughout] Pulse Rate [ From Monitor] Respiratory 20 Rate Respiratory 20 18 Rate [Anterior Bilateral Throughout] Blood Pressure 89/52 O2 Sat by Pulse 92 Oximetry 09/18/18 09/18/18 09/18/18 10:00 13:34 14:30 Temperature 97.6 F Pulse Rate 75 Pulse Rate [ 88 Anterior Bilateral Throughout] Pulse Rate [ 69 From Monitor] Respiratory 16 20 Rate Respiratory 18 Rate [Anterior Bilateral Throughout] Blood Pressure 111/72 O2 Sat by Pulse 93 93 Oximetry 09/18/18 14:45 Temperature Pulse Rate Pulse Rate [ 82 Anterior Bilateral Throughout] Pulse Rate [ From Monitor] Respiratory Rate Respiratory 18 Rate [Anterior Bilateral Throughout] Blood Pressure O2 Sat by Pulse Oximetry - General Appearance General appearance: well-developed, well-nourished, appears stated age EENT: ATNC, PERRL, mucous membranes moist Neck: no JVD Respiratory: Present: Clear to Ascultation Cardiology: regular, S1S2 Gastrointestinal: normoactive bowel sounds Integumentary: no rash, other (no edema ) Neurologic: no focal deficit, alert and oriented x3, strength 5/5, CN 3-12 intact Psychiatric: mood/affect appropriate, cooperative - Lab 09/17/18 04:52 09/17/18 04:52 Most recent lab results Calcium 9.3 mg/dL (8.4-10.2) 09/17/18 04:52 Magnesium 2.40 mg/dL (1.7-2.3) H 09/11/18 23:44 Medications & Allergies - Medications Allergies/Adverse Reactions: Allergies No Known Allergies Allergy (Verified 09/02/18 13:48) Home Medications: Home Medications Medication Instructions Recorded Confirmed Last Taken Type Hydrochlorothiazide 25 mg PO DAILY 09/07/18 09/07/18 Unknown History Lisinopril 5 mg PO DAILY 09/07/18 09/07/18 Unknown History Rosuvastatin Calcium 40 mg PO DAILY 09/07/18 09/07/18 Unknown History Tamsulosin 0.4 mg PO DAILY 09/07/18 09/07/18 Unknown History metFORMIN 500 mg PO BID 09/07/18 09/07/18 Unknown History Active Medications: Generic Name Dose Route Start Last Admin Trade Name Freq PRN Reason Stop Dose Admin Acetaminophen 650 mg 09/02/18 15:03 Tylenol PO Q4H PRN Pain, Mild (1-3) Albuterol 2.5 mg 09/06/18 17:35 09/11/18 13:11 Proventil IH 2.5 mg Q4HRT PRN Administration Shortness Of Breath Albuterol/Ipratropium 1 ampul 09/06/18 17:35 09/18/18 14:35 Duoneb *Not For Prn Use* IH 1 ampul Q6HRT ROXY Administration Arformoterol Tartrate 15 mcg 09/06/18 20:45 09/18/18 09:55 Brovana Nebu IH 15 mcg Q12HRT ROXY Administration Atorvastatin Calcium 40 mg 09/02/18 22:00 09/17/18 22:15 Lipitor PO 40 mg QHS ROXY Administration Bisacodyl 10 mg 09/02/18 15:03 Dulcolax MT QDAY PRN Constipation Budesonide 0.5 mg 09/07/18 08:00 09/18/18 09:54 Pulmicort IH 0.5 mg Q12HRT ROXY Administration Bupropion HCl 150 mg 09/11/18 10:00 09/18/18 09:08 Wellbutrin PO 150 mg BID ROXY Administration Dextrose 50 ml 09/08/18 10:58 D50w (25gm) Syringe IV PRN PRN Hypoglycemia Docusate Sodium 100 mg 09/18/18 10:00 09/18/18 09:04 Colace PO 100 mg BID [facility] Administration Enoxaparin Sodium 40 mg 09/08/18 15:00 09/18/18 09:04 Lovenox SUB-Q 40 mg QDAY@1000 [facility] Administration Haloperidol Lactate 5 mg 09/09/18 14:18 09/14/18 05:45 Haldol IV 5 mg Q6H PRN Administration Agitation Hydrocortisone Acetate 1 applic 09/04/18 16:00 09/18/18 06:20 Proctosol-Hc MT Not Given Q8HR [facility] Hydrophilic Ointment 1 applic 09/06/18 15:34 Vaseline Lip Therapy TP Q2H PRN Dry Lips Insulin Glargine 10 units 09/09/18 22:00 09/17/18 22:16 Lantus SUB-Q Not Given QHS [facility] Insulin Human Lispro 0 unit 09/17/18 17:00 09/18/18 11:57 Humalog SUB-Q Not Given ACHS [facility] Protocol Lactulose 20 gm 09/08/18 18:29 Cephulac PO Q6HR PRN Delerium Lactulose 20 gm 09/12/18 11:00 09/17/18 22:15 Cephulac PO 20 gm QHS [facility] Administration Magnesium Hydroxide 30 ml 09/02/18 15:03 Milk Of Magnesia PO Q4H PRN Constipation Metoclopramide HCl 10 mg 09/02/18 15:03 Reglan PO Q6H PRN Nausea And Vomiting Multi-Ingred Cream/Lotion/Oil/Oint 1 applic 09/06/18 15:34 Artificial Tears Ophth Oint OU Q4H PRN Dry Eye(s) Ondansetron HCl 4 mg 09/02/18 15:03 Zofran IV Q8H PRN Nausea And Vomiting Pantoprazole Sodium 40 mg 09/18/18 10:00 09/18/18 09:04 Protonix PO 40 mg QDAY [facility] Administration Prednisone 10 mg 09/15/18 10:00 09/18/18 09:04 Deltasone PO 10 mg QDAY [facility] Administration Promethazine HCl 25 mg 09/02/18 15:03 Phenergan MT Q6H PRN Nausea And Vomiting Sodium Chloride 10 ml 09/02/18 15:03 09/18/18 09:05 Sodium Chloride Flush Syringe 10 Ml IV 10 ml PRN PRN Administration LINE FLUSH Tamsulosin HCl 0.4 mg 09/07/18 15:00 09/18/18 09:04 Flomax PO 0.4 mg QDAY ROXY Administration
[2018-09-18] MEDS: LANTUS SUB-Q SCH (21:52)
[2018-09-18] MEDS: CEPHULAC PO SCH (21:52)
[2018-09-19] MEDS: DUONEB *Not for PRN Use IH SCH ×2 (02:37→08:52)
[2018-09-19 04:24] LABS: Hematocrit 41.4 % (35.5-45.6); Hemoglobin 13.5 gm/dl (11.8-15.2); Mean Corpuscular HGB Conc 33 % (32-34); Mean Corpuscular Volume 92 fl (84-94); Platelet Count 123 K/mm3 (140-440); Red Blood Count 4.51 M/mm3 (3.65-5.03); Red Cell Distribution Width 15.1 % (13.2-15.2)
[2018-09-19 05:26] LABS: BUN/Creatinine Ratio 26; Blood Urea Nitrogen 21 mg/dL (9-20); Hemolysis Index 104
[2018-09-19 06:03] LABS: BUN/Creatinine Ratio 26; Blood Urea Nitrogen 21 mg/dL (9-20); Calcium 8.5 mg/dL (8.4-10.2); Hemolysis Index 162
[2018-09-19 07:55] VITALS: BP 103/64
[2018-09-19] MEDS ORDERED: LANTUS SUB-Q SCH (08:01)
--- NOTE | 2018-09-19 08:09 | Progress Note ---
Assessment and Plan Assessment and plan: 68 YO Male with Obesity Hypoventilation, COPD presents to ED for evaluation. Pt is confused, lethargic and unable to provide history. Pt history provided by his brother who is at bedside during exam and interview. As per brother, the patient has not returned phone calls over the past 4 days. As a result, the brother went to the home but the patient did not answer the door. Law Enforcement notified, and entry into the home was obtained. The patient was found down and covered in his own feces. Pt exhibited slurred speech, confusion. EMS notified and upon arrival, the patient was found to have a neurologic deficit. A code stroke was called, and the patient was transported to [facility]. Pt seen and evaluated in ED and found to have evidence of CVA as well as SIRS, Acidosis, and Encephalopathy. Pt admitted to telemetry and initiated on CVA protocol. He was intubated with concern for aspiration. Neurology consulted. Hypotension -Continue to hold antihypertensive -Check orthostatic Hypoglycemia -discontinue Long acting insulin. Acute Metabolic encephalopathy - resolved - CT, MRI head negative for CVA Delirium - resolved Acute Hypoxic Respiratory failure, COPD exacerbation - Patient extubated on 09/11 - patient is off oxygen Hypernatremia - Resolved Rectal Bleed - Evaluated by GI and they decreased his due to hemorrhoid - H&H stable Aspiration Pneumonia - Finished antibiotics Obesity Hypoventilation syndrome - Oxygen support ETOH use disorder- pt denies but admits to tobacco use hYPOTHYRODISIM - On Synthroid Moderate Protien calorie Malnutrition - nutrition consult -Discontinue NG tube and start feeding as recommended by dietitian. Secondary Coagulopathy ?UNDERLYING LIVER DISEASE VS IATROGENIC MEDICATION - Supportive care Sepsis - Resolved Tobacco use disorder per hx; spiritual counselor when stable Patient is on folic cath is placed by urology. Dysphagia; on mechanical soft diet per ST. Diabetes mellitus - on basal and sliding scale insulin At this time pending discharge placement Hospitalist Physical - Constitutional Vitals: Temp Pulse Resp BP Pulse Ox 97.9 F 63 19 103/64 94 09/19/18 07:46 09/19/18 07:46 09/19/18 07:46 09/19/18 07:46 09/19/18 07:46 General appearance: Present: mild distress, obese, disheveled Results - Labs CBC & Chem 7: 09/19/18 03:52 09/19/18 05:34 Labs: Laboratory Last Values WBC 7.9 K/mm3 (4.5-11.0) 09/19/18 03:52 RBC 4.51 M/mm3 (3.65-5.03) 09/19/18 03:52 Hgb 13.5 gm/dl (11.8-15.2) 09/19/18 03:52 Hct 41.4 % (35.5-45.6) 09/19/18 03:52 MCV 92 fl (84-94) 09/19/18 03:52 MCH 30 pg (28-32) 09/19/18 03:52 MCHC 33 % (32-34) 09/19/18 03:52 RDW 15.1 % (13.2-15.2) 09/19/18 03:52 Plt Count 123 K/mm3 (140-440) L 09/19/18 03:52 Lymph % (Auto) 11.8 % (13.4-35.0) L 09/04/18 05:20 Titus % (Auto) 6.8 % (0.0-7.3) 09/04/18 05:20 Eos % (Auto) 1.0 % (0.0-4.3) 09/04/18 05:20 Baso % (Auto) 0.3 % (0.0-1.8) 09/04/18 05:20 Lymph # 0.8 K/mm3 (1.2-5.4) L 09/04/18 05:20 Titus # 0.5 K/mm3 (0.0-0.8) 09/04/18 05:20 Eos # 0.1 K/mm3 (0.0-0.4) 09/04/18 05:20 Baso # 0.0 K/mm3 (0.0-0.1) 09/04/18 05:20 Add Manual Diff Complete 09/17/18 04:52 Total Counted 100 09/17/18 04:52 Seg Neutrophils % Concrete Engineering Technician 09/13/18 04:41 Seg Neuts % (Manual) 72.0 % (40.0-70.0) H 09/17/18 04:52 Band Neutrophils % 5.0 % 09/17/18 04:52 Lymphocytes % (Manual) 16.0 % (13.4-35.0) 09/17/18 04:52 Reactive Lymphs % (Man) 0 % 09/17/18 04:52 Monocytes % (Manual) 1.0 % (0.0-7.3) 09/17/18 04:52 Eosinophils % (Manual) 3.0 % (0.0-4.3) 09/17/18 04:52 Basophils % (Manual) 0 % (0.0-1.8) 09/17/18 04:52 Metamyelocytes % 2.0 % 09/17/18 04:52 Myelocytes % 1.0 % 09/17/18 04:52 Promyelocytes % 0 % 09/17/18 04:52 Blast Cells % 0 % 09/17/18 04:52 Nucleated RBC % Not Reportable 09/17/18 04:52 Seg Neutrophils # 5.5 K/mm3 (1.8-7.7) 09/04/18 05:20 Seg Neutrophils # Man 5.3 K/mm3 (1.8-7.7) 09/17/18 04:52 Band Neutrophils # 0.4 K/mm3 09/17/18 04:52 Lymphocytes # (Manual) 1.2 K/mm3 (1.2-5.4) 09/17/18 04:52 Abs React Lymphs (Man) 0.0 K/mm3 09/17/18 04:52 Monocytes # (Manual) 0.1 K/mm3 (0.0-0.8) 09/17/18 04:52 Eosinophils # (Manual) 0.2 K/mm3 (0.0-0.4) 09/17/18 04:52 Basophils # (Manual) 0.0 K/mm3 (0.0-0.1) 09/17/18 04:52 Metamyelocytes # 0.1 K/mm3 09/17/18 04:52 Myelocytes # 0.1 K/mm3 09/17/18 04:52 Promyelocytes # 0.0 K/mm3 09/17/18 04:52 Blast Cells # 0.0 K/mm3 09/17/18 04:52 WBC Morphology Not Reportable 09/17/18 04:52 Hypersegmented Neuts Not Reportable 09/17/18 04:52 Hyposegmented Neuts Not Reportable 09/17/18 04:52 Hypogranular Neuts Not Reportable 09/17/18 04:52 Smudge Cells Not Reportable 09/17/18 04:52 Toxic Granulation Not Reportable 09/17/18 04:52 Toxic Vacuolation Not Reportable 09/17/18 04:52 Dohle Bodies Not Reportable 09/17/18 04:52 Pelger-Huet Anomaly Not Reportable 09/17/18 04:52 Tony Rods Not Reportable 09/17/18 04:52 Platelet Estimate Appears normal 09/17/18 04:52 Clumped Platelets Not Reportable 09/17/18 04:52 Plt Clumps, EDTA Not Reportable 09/17/18 04:52 Large Platelets Not Reportable 09/17/18 04:52 Giant Platelets Not Reportable 09/17/18 04:52 Platelet Satelliting Not Reportable 09/17/18 04:52 Plt Morphology Comment Not Reportable 09/17/18 04:52 RBC Morphology Not Reportable 09/17/18 04:52 Dimorphic RBCs Not Reportable 09/17/18 04:52 Polychromasia Not Reportable 09/17/18 04:52 Hypochromasia Not Reportable 09/17/18 04:52 Poikilocytosis Not Reportable 09/17/18 04:52 Anisocytosis Not Reportable 09/17/18 04:52 Microcytosis Not Reportable 09/17/18 04:52 Macrocytosis Not Reportable 09/17/18 04:52 Spherocytes Not Reportable 09/17/18 04:52 Pappenheimer Bodies Not Reportable 09/17/18 04:52 Sickle Cells Not Reportable 09/17/18 04:52 Target Cells Not Reportable 09/17/18 04:52 Tear Drop Cells Not Reportable 09/17/18 04:52 Ovalocytes Not Reportable 09/17/18 04:52 Stomatocytes 1+ 09/17/18 04:52 Helmet Cells Not Reportable 09/17/18 04:52 [place] Bodies Not Reportable 09/17/18 04:52 [place] Not Reportable 09/17/18 04:52 [place] Cells Not Reportable 09/17/18 04:52 Bite Cells Not Reportable 09/17/18 04:52 Crenated Cell Not Reportable 09/17/18 04:52 Elliptocytes Not Reportable 09/17/18 04:52 Acanthocytes (Spur) Not Reportable 09/17/18 04:52 Rouleaux Not Reportable 09/17/18 04:52 Hemoglobin C Crystals Not Reportable 09/17/18 04:52 Schistocytes Not Reportable 09/17/18 04:52 Malaria parasites Not Reportable 09/17/18 04:52 Tejinder Bodies Not Reportable 09/17/18 04:52 Hem Pathologist Commnt No 09/17/18 04:52 PT 13.2 Sec. (12.2-14.9) 09/14/18 13:25 INR 0.96 (0.87-1.13) 09/14/18 13:25 APTT 32.5 Sec. (24.2-36.6) 09/02/18 12:35 D-Dimer 4180.35 ng/mlDDU (0-234) H 09/02/18 12:35 POC ABG pH 7.534 (7.35-7.45) H 09/12/18 05:29 POC ABG pCO2 50.4 (35-45) H 09/12/18 05:29 POC ABG pO2 86 (80-105) 09/12/18 05:29 POC ABG HCO3 42.5 09/12/18 05:29 POC ABG Total CO2 44 09/12/18 05:29 POC ABG O2 Sat 97 09/12/18 05:29 POC ABG Base Excess 20 09/12/18 05:29 FiO2 40 % 09/12/18 05:29 Sodium 143 mmol/L (137-145) 09/19/18 05:34 Potassium 4.5 mmol/L (3.6-5.0) 09/19/18 05:34 Chloride 106.6 mmol/L (98-107) 09/19/18 05:34 Carbon Dioxide 26 mmol/L (22-30) 09/19/18 05:34 Anion Gap 15 mmol/L 09/19/18 05:34 BUN 21 mg/dL (9-20) H 09/19/18 05:34 Creatinine 0.8 mg/dL (0.8-1.5) 09/19/18 05:34 Estimated GFR > 60 ml/min 09/19/18 05:34 BUN/Creatinine Ratio 26 % 09/19/18 05:34 Glucose 91 mg/dL (75-100) 09/19/18 05:34 POC Glucose 62 (70-105) L 09/19/18 07:19 Lactic Acid 1.40 mmol/L (0.7-2.0) 09/06/18 21:58 Calcium 8.5 mg/dL (8.4-10.2) 09/19/18 05:34 Magnesium 2.40 mg/dL (1.7-2.3) H 09/11/18 23:44 Total Bilirubin 0.70 mg/dL (0.1-1.2) 09/17/18 04:52 Direct Bilirubin < 0.2 mg/dL (0-0.2) 09/03/18 11:26 Indirect Bilirubin 0.3 mg/dL 09/02/18 13:36 AST 46 units/L (5-40) H 09/17/18 04:52 ALT 106 units/L (7-56) H 09/17/18 04:52 Alkaline Phosphatase 84 units/L (35-129) 09/17/18 04:52 Ammonia 58.0 umol/L (25-60) 09/06/18 05:10 Total Creatine Kinase 98 units/L (55-170) 09/02/18 13:36 Troponin T 0.018 ng/mL (0.00-0.029) 09/02/18 13:36 C-Reactive Protein 9.00 mg/dL (0.00-1.30) H 09/06/18 21:58 NT-Pro-B Natriuret Pep 873.7 pg/mL (0-900) 09/02/18 13:36 Total Protein 5.0 g/dL (6.3-8.2) L 09/17/18 04:52 Albumin 2.4 g/dL (3.9-5) L 09/17/18 04:52 Albumin/Globulin Ratio 0.9 % 09/17/18 04:52 Triglycerides 150 mg/dL (2-149) H 09/03/18 Unknown Cholesterol 116 mg/dL (50-199) 09/03/18 Unknown LDL Cholesterol Direct 69 mg/dL (50-130) 09/03/18 Unknown HDL Cholesterol 21 mg/dL (40-59) L 09/03/18 Unknown Cholesterol/HDL Ratio 5.52 % 09/03/18 Unknown Lipase 81 units/L (13-60) H 09/02/18 13:36 TSH < 0.005 mlU/mL (0.270-4.200) L 09/02/18 16:45 Free T4 2.40 ng/dL (0.76-1.46) H 09/02/18 16:45 Urine Color [place] (Yellow) 09/08/18 00:14 Urine Turbidity Cloudy (Clear) 09/08/18 00:14 Urine pH 5.0 (5.0-7.0) 09/08/18 00:14 Ur Specific [place] 1.019 (1.003-1.030) 09/08/18 00:14 Urine Protein 30 mg/dl mg/dL (Negative) 09/08/18 00:14 Urine Glucose (UA) Neg mg/dL (Negative) 09/08/18 00:14 Urine Ketones Neg mg/dL (Negative) 09/08/18 00:14 Urine Blood Lg (Negative) 09/08/18 00:14 Urine Nitrite Neg (Negative) 09/08/18 00:14 Urine Bilirubin Neg (Negative) 09/08/18 00:14 Urine Urobilinogen 4.0 mg/dL (<2.0) 09/08/18 00:14 Ur Leukocyte Esterase Neg (Negative) 09/08/18 00:14 Urine WBC (Auto) 41.0 /HPF (0.0-6.0) H 09/08/18 00:14 Urine RBC (Auto) > 182.0 /HPF (0.0-6.0) 09/08/18 00:14 U Epithel Cells (Auto) 8.0 /HPF (0-13.0) 09/08/18 00:14 Urine Bacteria (Auto) 2+ /HPF (Negative) 09/08/18 00:14 Ur Transition Epith Cell 1 /HPF 09/08/18 00:14 Amorphous Crystals 3+ 09/08/18 00:14 Hyaline Casts 99 /LPF 09/08/18 00:14 Urine Mucus 2+ /HPF 09/08/18 00:14 Salicylates < 0.3 mg/dL (2.8-20.0) L 09/02/18 12:35 Urine Opiates Screen Presumptive negative 09/02/18 13:59 Urine Methadone Screen Presumptive negative 09/02/18 13:59 Acetaminophen < 5.0 ug/mL (10.0-30.0) L 09/02/18 12:35 Ur Barbiturates Screen Presumptive negative 09/02/18 13:59 Ur Phencyclidine Scrn Presumptive negative 09/02/18 13:59 Ur Amphetamines Screen Presumptive negative 09/02/18 13:59 U Benzodiazepines Scrn Presumptive negative 09/02/18 13:59 Urine Cocaine Screen Presumptive negative 09/02/18 13:59 U Marijuana (THC) Screen Presumptive negative 09/02/18 13:59 Drugs of Abuse Note Disclamer 09/02/18 13:59 Plasma/Serum Alcohol < 0.01 % (0-0.07) 09/02/18 12:35 Nutrition/Malnutrition Assess - Dietary Evaluation Nutrition/Malnutrition Findings: Nutrition Notes Start: 09/06/18 15:28 Freq: Status: Active Protocol: Document 09/17/18 11:10 TW (Rec: 09/17/18 14:19 TW [id number]) Co-Sign 09/17/18 11:10 OL Nutrition Notes Initial or Follow up Reassessment Current Diagnosis Acute Kidney Injury COPD Sepsis Respiratory Failure Stroke Current Diet Mechanical Soft Labs/Tests K 3.2 Pertinent Medications Prednisone Height 5 ft 9 in Weight 93.5 kg [place] Body Weight (kg) 72.72 BMI 30.4 Subjective/Other Information F/U for stable TF/ wt. Noted that pt had a diet advancement to mechanical soft. Pt reports eating 50% of trays and tolerating his diet well. Pt reports wanting extra milk/ chocolate milk on trays. Pt reports not wanting ONS, biomedical engineering internship dropped off one chocolate Ensure Enlive for pt to try. Percent of energy/protein needs met: 64%/50% Burn Absent Trauma Absent #1 Nutrition Diagnosis Inadequate oral intake As Evidenced by Signs and Symptoms diet advancement, pt eating 50 % of trays Diagnosis Progress(for reassessment Improved documentation) Is patient on ventilator? No Is Patient Ambulatory and/or Out of Bed Yes REE-([place]-St. Jeor-ambulatory/OOB) [ 2197.494 [id number]] Kcal/Kg value to use for calculation 18 Approximate Energy Requirements Using 1683 kcal/Kg Calculation Used for Recommendations Kcal/kg Additional Notes Pro: 94-112g/day (1-1.2g/kg) Fluid 1mL/kcal Nutrition Intervention Change Diet Order: Continue Mechanical soft Goal #1 Meet at least 75% of kcal and pro needs via PO intake Anticipated Discharge Needs: Unable to determine at this time Follow-Up By: 09/19/18 Additional Comments F/U PO intake/ need for ONS
[2018-09-19] MEDS ORDERED: NACL 0.9% 1000 ML 1,000 ML IV ONE (08:26)
[2018-09-19] MEDS: BROVANA NEBU IH SCH (08:51)
[2018-09-19] MEDS: PULMICORT IH SCH (08:51)
[2018-09-19] MEDS: DELTASONE PO SCH (09:01)
[2018-09-19] MEDS: COLACE PO SCH (09:01)
[2018-09-19] MEDS: PROTONIX PO SCH (09:02)
[2018-09-19] MEDS: LOVENOX SUB-Q SCH (09:02)
[2018-09-19] MEDS: SODIUM CHLORIDE FLUSH SYRINGE 10 ML IV PRN (09:03)
[2018-09-19] MEDS: FLOMAX PO SCH (09:03)
[2018-09-19] MEDS ORDERED: WELLBUTRIN PO SCH ×2 (10:00)
--- NOTE | 2018-09-19 10:32 | Progress Note ---
Assessment and Plan - Patient Problems (1) Hypernatremia Current Visit: Yes Status: Acute Plan to address problem: resolved, now with improved po intake (2) Acute renal failure Current Visit: Yes Status: Acute Plan to address problem: Overall renal function stable. will sign off for now. (3) Encephalopathy Current Visit: Yes Status: Acute Plan to address problem: improved. Management per primary team. (4) Hypercalcemia Current Visit: Yes Status: Acute Plan to address problem: normalized with adequate hydration (5) Hypokalemia Current Visit: Yes Status: Acute Plan to address problem: normalized s/p supplementation with KDur Subjective Date of service: 09/19/18 Principal diagnosis: Ac Hypoxemic Resp failure; AE-COPD; Pneumonia (Aspiration); Ac encephalopat Interval history: Pt awake, alert, in no acute respiratory distress this AM Objective - Vital Signs Vital signs: Vital Signs - 12hr 09/19/18 09/19/18 09/19/18 00:34 02:00 02:09 Temperature 98.3 F Pulse Rate 79 73 Pulse Rate [ Anterior Bilateral Throughout] Respiratory 18 20 Rate Respiratory Rate [Anterior Bilateral Throughout] Blood Pressure 99/61 O2 Sat by Pulse 93 95 Oximetry 09/19/18 09/19/18 09/19/18 07:46 08:00 08:53 Temperature 97.9 F Pulse Rate 63 Pulse Rate [ 68 69 Anterior Bilateral Throughout] Respiratory 19 Rate Respiratory 18 18 Rate [Anterior Bilateral Throughout] Blood Pressure 103/64 O2 Sat by Pulse 94 95 Oximetry - General Appearance General appearance: well-developed, well-nourished, appears stated age EENT: ATNC, PERRL, mucous membranes moist Neck: no JVD Respiratory: Present: Clear to Ascultation Cardiology: regular, S1S2 Gastrointestinal: normoactive bowel sounds Integumentary: no rash, other (no edema ) Neurologic: no focal deficit, alert and oriented x3, strength 5/5, CN 3-12 intact Psychiatric: mood/affect appropriate, cooperative - Lab 09/19/18 03:52 09/19/18 05:34 Most recent lab results Calcium 8.5 mg/dL (8.4-10.2) 09/19/18 05:34 Magnesium 2.40 mg/dL (1.7-2.3) H 09/11/18 23:44 Medications & Allergies - Medications Allergies/Adverse Reactions: Allergies No Known Allergies Allergy (Verified 09/02/18 13:48) Home Medications: Home Medications Medication Instructions Recorded Confirmed Last Taken Type Hydrochlorothiazide 25 mg PO DAILY 09/07/18 09/07/18 Unknown History Lisinopril 5 mg PO DAILY 09/07/18 09/07/18 Unknown History Rosuvastatin Calcium 40 mg PO DAILY 09/07/18 09/07/18 Unknown History Tamsulosin 0.4 mg PO DAILY 09/07/18 09/07/18 Unknown History metFORMIN 500 mg PO BID 09/07/18 09/07/18 Unknown History Fluticasone/Salmeterol [Advair 1 each IH BID 30 Days blst.w.dev 09/19/18 Unknown Rx 250-50 Diskus] Hydrocortisone 2.5% [Proctosol-Hc] 1 applic IA Q8HR #14 tube 09/19/18 Unknown Rx Ipratropium/Albuterol Sulfate 1 ampul IH Q6HRT #90 ampul.neb 09/19/18 Unknown Rx [DUONEB *Not for PRN Use*] Lactulose [Cephulac] 20 gm PO Q6HR PRN #30 oral.liqd 09/19/18 Unknown Rx Pantoprazole [Protonix TAB] 40 mg PO QDAY #30 tablet 09/19/18 Unknown Rx buPROPion [Wellbutrin] 75 mg PO BID #30 tablet 09/19/18 Unknown Rx Active Medications: Generic Name Dose Route Start Last Admin Trade Name Freq PRN Reason Stop Dose Admin Acetaminophen 650 mg 09/02/18 15:03 Tylenol PO Q4H PRN Pain, Mild (1-3) Albuterol 2.5 mg 09/06/18 17:35 09/11/18 13:11 Proventil IH 2.5 mg Q4HRT PRN Administration Shortness Of Breath Albuterol/Ipratropium 1 ampul 09/06/18 17:35 09/19/18 08:52 Duoneb *Not For Prn Use* IH Not Given Q6HRT ROXY Arformoterol Tartrate 15 mcg 09/06/18 20:45 09/19/18 08:51 Brovana Nebu IH 15 mcg Q12HRT ROXY Administration Atorvastatin Calcium 40 mg 09/02/18 22:00 09/18/18 21:53 Lipitor PO 40 mg QHS ROXY Administration Bisacodyl 10 mg 09/02/18 15:03 Dulcolax IA QDAY PRN Constipation Budesonide 0.5 mg 09/07/18 08:00 09/19/18 08:51 Pulmicort IH 0.5 mg Q12HRT ROXY Administration Bupropion HCl 100 mg 09/19/18 10:00 09/19/18 09:56 Wellbutrin PO 100 mg BID ROXY Administration Dextrose 50 ml 09/08/18 10:58 D50w (25gm) Syringe IV PRN PRN Hypoglycemia Docusate Sodium 100 mg 09/18/18 10:00 09/19/18 09:01 Colace PO 100 mg BID ROXY Administration Enoxaparin Sodium 40 mg 09/08/18 15:00 09/19/18 09:02 Lovenox SUB-Q 40 mg QDAY@1000 ROXY Administration Haloperidol Lactate 5 mg 09/09/18 14:18 09/14/18 05:45 Haldol IV 5 mg Q6H PRN Administration Agitation Hydrocortisone Acetate 1 applic 09/04/18 16:00 09/18/18 21:54 Proctosol-Hc IA 1 applic Q8HR ROXY Administration Hydrophilic Ointment 1 applic 09/06/18 15:34 Vaseline Lip Therapy TP Q2H PRN Dry Lips Insulin Human Lispro 0 unit 09/17/18 17:00 09/18/18 22:43 Humalog SUB-Q Not Given ACHS [facility] Protocol Lactulose 20 gm 09/08/18 18:29 Cephulac PO Q6HR PRN Delerium Magnesium Hydroxide 30 ml 09/02/18 15:03 Milk Of Magnesia PO Q4H PRN Constipation Metoclopramide HCl 10 mg 09/02/18 15:03 Reglan PO Q6H PRN Nausea And Vomiting Multi-Ingred Cream/Lotion/Oil/Oint 1 applic 09/06/18 15:34 Artificial Tears Ophth Oint OU Q4H PRN Dry Eye(s) Ondansetron HCl 4 mg 09/02/18 15:03 Zofran IV Q8H PRN Nausea And Vomiting Pantoprazole Sodium 40 mg 09/18/18 10:00 09/19/18 09:02 Protonix PO 40 mg QDAY ROXY Administration Prednisone 10 mg 09/15/18 10:00 09/19/18 09:01 Deltasone PO 10 mg QDAY ROXY Administration Promethazine HCl 25 mg 09/02/18 15:03 Phenergan IA Q6H PRN Nausea And Vomiting Sodium Chloride 10 ml 09/02/18 15:03 09/19/18 09:03 Sodium Chloride Flush Syringe 10 Ml IV 10 ml PRN PRN Administration LINE FLUSH Tamsulosin HCl 0.4 mg 09/07/18 15:00 09/19/18 09:03 Flomax PO 0.4 mg QDAY ROXY Administration
--- NOTE | 2018-09-19 12:47 | Progress Note ---
Assessment and Plan Acute hypoxemic respiratory failure, now on mechanical ventilatory support. Acute chronic obstructive pulmonary disease exacerbation. Pneumonia, right lower lobe present at presentation, possibly aspiration. Obesity. Acute encephalopathy. Possible hyperthyroidism. Elevated serum ammonia, now resolved. Elevated D-dimer with a negative pulmonary embolism workup. Coagulopathy. Hyperglycemia. Acute kidney injury, resolved. Hypernatremia - seroquel iscontinued - off AB's - cleared for mechanical soft diet - continue bronchodilators with pulmonary hygiene per RT - continue mobility protocol for pressure ulcer prophylaxis - GI & VTE prophylaxis - glycemic control with SSI for target BG 140 - 180 mg/dL - resumed chronic disease medications - PT/OT as tolerated - continue other care per attending / other consultants ...... re-evaluate in am & prn ... care plan discussed with patient at bedside Subjective Date of service: 09/19/18 Principal diagnosis: Ac Hypoxemic Resp failure; AE-COPD; Pneumonia (Aspiration); Ac encephalopat Interval history: Patient is seen today for: Acute hypoxemic respiratory failure, now on mechanical ventilatory support; Acute chronic obstructive pulmonary disease exacerbation; Pneumonia, right lower lobe present at presentation, possibly aspiration; Obesity; Acute encephalopathy. Seen and examined at bedside; 24hour events reviewed; nursing and respiratory care staff consulted; no adverse overnight events reported to me; resting peacefully in bed; Objective Vital Signs - 12hr 09/19/18 09/19/18 09/19/18 02:00 02:09 07:46 Temperature 98.3 F 97.9 F Pulse Rate 73 63 Pulse Rate [ Anterior Bilateral Throughout] Pulse Rate [ From Monitor] Respiratory 20 19 Rate Respiratory Rate [Anterior Bilateral Throughout] Blood Pressure 99/61 103/64 O2 Sat by Pulse 95 94 Oximetry 09/19/18 09/19/18 09/19/18 08:00 08:53 10:00 Temperature Pulse Rate Pulse Rate [ 68 69 Anterior Bilateral Throughout] Pulse Rate [ 69 From Monitor] Respiratory Rate Respiratory 18 18 Rate [Anterior Bilateral Throughout] Blood Pressure O2 Sat by Pulse 95 95 Oximetry Constitutional: appears uncomfortable, other (elderly looking CM, normocephalica nd atraumatic with mildly increased resp effort on MVS) Eyes: non-icteric ENT: oropharynx moist, other (extubated) Neck: supple, no lymphadenopathy, no JVD, other (large neck circumference) Effort: mildly labored Ascultation: Bilateral: diminished breath sounds, rhonchi Percussion: Bilateral: not dull Cardiovascular: regular rate and rhythm Gastrointestinal: normoactive bowel sounds, soft, non-tender, non-distended Integumentary: normal Extremities: no cyanosis, no edema, pink and warm, pulses normal Neurologic: non-focal exam, pupils equal and round, motor strength normal and, other (encephalopathic) Psychiatric: other (unable to assess) CBC and BMP: 09/19/18 03:52 09/19/18 05:34 ABG, PT/INR, D-dimer: ABG POC ABG pH 7.534 (7.35-7.45) H 09/12/18 05:29 POC ABG pCO2 50.4 (35-45) H 09/12/18 05:29 POC ABG pO2 86 (80-105) 09/12/18 05:29 POC ABG HCO3 42.5 09/12/18 05:29 POC ABG Total CO2 44 09/12/18 05:29 POC ABG O2 Sat 97 09/12/18 05:29 PT/INR, D-dimer PT 13.2 Sec. (12.2-14.9) 09/14/18 13:25 INR 0.96 (0.87-1.13) 09/14/18 13:25 D-Dimer 4180.35 ng/mlDDU (0-234) H 09/02/18 12:35 Abnormal lab findings: Abnormal Labs 09/02/18 09/02/18 09/02/18 12:35 12:35 12:35 WBC RBC 6.15 H Hgb 18.7 H Hct 57.7 H MCV RDW 15.5 H Plt Count Lymph % (Auto) 8.8 L Lymph # 0.9 L Seg Neutrophils % 83.2 H Seg Neuts % (Manual) Lymphocytes % (Manual) Seg Neutrophils # 8.9 H Seg Neutrophils # Man Lymphocytes # (Manual) PT 20.8 H INR 1.74 H D-Dimer 4180.35 H POC ABG pH POC ABG pCO2 POC ABG pO2 Sodium Potassium Chloride Carbon Dioxide BUN Creatinine Glucose POC Glucose Lactic Acid Calcium Magnesium Total Bilirubin Direct Bilirubin AST ALT Ammonia C-Reactive Protein Total Protein Albumin Triglycerides HDL Cholesterol Lipase TSH Free T4 Urine WBC (Auto) Salicylates < 0.3 L Acetaminophen 09/02/18 09/02/18 09/02/18 12:35 12:35 12:35 WBC RBC Hgb Hct MCV RDW Plt Count Lymph % (Auto) Lymph # Seg Neutrophils % Seg Neuts % (Manual) Lymphocytes % (Manual) Seg Neutrophils # Seg Neutrophils # Man Lymphocytes # (Manual) PT INR D-Dimer POC ABG pH POC ABG pCO2 POC ABG pO2 Sodium Potassium Chloride Carbon Dioxide BUN Creatinine Glucose POC Glucose 167 H Lactic Acid 3.20 H* Calcium Magnesium Total Bilirubin Direct Bilirubin AST ALT Ammonia C-Reactive Protein Total Protein Albumin Triglycerides HDL Cholesterol Lipase TSH Free T4 Urine WBC (Auto) Salicylates Acetaminophen < 5.0 L 09/02/18 09/02/18 09/02/18 13:36 14:40 16:45 WBC RBC Hgb Hct MCV RDW Plt Count Lymph % (Auto) Lymph # Seg Neutrophils % Seg Neuts % (Manual) Lymphocytes % (Manual) Seg Neutrophils # Seg Neutrophils # Man Lymphocytes # (Manual) PT INR D-Dimer POC ABG pH POC ABG pCO2 POC ABG pO2 Sodium 159 H Potassium Chloride 114.7 H Carbon Dioxide BUN 90 H Creatinine Glucose 172 H POC Glucose Lactic Acid 2.30 H* Calcium 10.8 H Magnesium Total Bilirubin Direct Bilirubin 0.3 H AST ALT Ammonia C-Reactive Protein Total Protein Albumin 2.6 L Triglycerides HDL Cholesterol Lipase 81 H TSH < 0.005 L Free T4 2.40 H Urine WBC (Auto) Salicylates Acetaminophen 09/03/18 09/03/18 09/03/18 11:26 11:26 11:26 WBC RBC Hgb Hct MCV RDW Plt Count Lymph % (Auto) Lymph # Seg Neutrophils % Seg Neuts % (Manual) Lymphocytes % (Manual) Seg Neutrophils # Seg Neutrophils # Man Lymphocytes # (Manual) PT 21.8 H INR 1.86 H D-Dimer POC ABG pH POC ABG pCO2 POC ABG pO2 Sodium 160 H Potassium Chloride 122.6 H Carbon Dioxide BUN 69 H Creatinine Glucose 127 H POC Glucose Lactic Acid Calcium Magnesium Total Bilirubin Direct Bilirubin AST ALT Ammonia C-Reactive Protein Total Protein Albumin 2.1 L Triglycerides HDL Cholesterol Lipase TSH Free T4 Urine WBC (Auto) Salicylates Acetaminophen 09/03/18 09/03/18 09/03/18 11:26 15:39 20:23 WBC RBC Hgb Hct MCV RDW Plt Count Lymph % (Auto) Lymph # Seg Neutrophils % Seg Neuts % (Manual) Lymphocytes % (Manual) Seg Neutrophils # Seg Neutrophils # Man Lymphocytes # (Manual) PT INR D-Dimer POC ABG pH POC ABG pCO2 POC ABG pO2 Sodium 160 H 160 H Potassium Chloride Carbon Dioxide BUN Creatinine Glucose POC Glucose Lactic Acid Calcium Magnesium Total Bilirubin Direct Bilirubin AST ALT Ammonia 75.0 H C-Reactive Protein Total Protein Albumin Triglycerides HDL Cholesterol Lipase TSH Free T4 Urine WBC (Auto) Salicylates Acetaminophen 09/03/18 09/04/18 09/04/18 Unknown 02:38 05:20 WBC RBC Hgb Hct MCV RDW Plt Count Lymph % (Auto) Lymph # Seg Neutrophils % Seg Neuts % (Manual) Lymphocytes % (Manual) Seg Neutrophils # Seg Neutrophils # Man Lymphocytes # (Manual) PT INR D-Dimer POC ABG pH POC ABG pCO2 POC ABG pO2 Sodium 160 H 166 H* Potassium Chloride 129.2 H Carbon Dioxide BUN 57 H Creatinine Glucose 137 H POC Glucose Lactic Acid Calcium Magnesium Total Bilirubin Direct Bilirubin AST ALT Ammonia C-Reactive Protein Total Protein 5.8 L Albumin 2.7 L Triglycerides 150 H HDL Cholesterol 21 L Lipase TSH Free T4 Urine WBC (Auto) Salicylates Acetaminophen 09/04/18 09/04/18 09/04/18 05:20 09:11 13:35 WBC RBC 5.12 H Hgb 15.5 H D 15.6 H Hct 48.0 H D 48.1 H MCV RDW 15.9 H Plt Count Lymph % (Auto) 11.8 L Lymph # 0.8 L Seg Neutrophils % 80.1 H Seg Neuts % (Manual) Lymphocytes % (Manual) Seg Neutrophils # Seg Neutrophils # Man Lymphocytes # (Manual) PT INR D-Dimer POC ABG pH POC ABG pCO2 POC ABG pO2 Sodium 166 H* Potassium Chloride Carbon Dioxide BUN Creatinine Glucose POC Glucose Lactic Acid Calcium Magnesium Total Bilirubin Direct Bilirubin AST ALT Ammonia C-Reactive Protein Total Protein Albumin Triglycerides HDL Cholesterol Lipase TSH Free T4 Urine WBC (Auto) Salicylates Acetaminophen 09/04/18 09/04/18 09/04/18 13:35 21:04 21:04 WBC RBC Hgb 16.9 H Hct 58.3 H D MCV RDW Plt Count Lymph % (Auto) Lymph # Seg Neutrophils % Seg Neuts % (Manual) Lymphocytes % (Manual) Seg Neutrophils # Seg Neutrophils # Man Lymphocytes # (Manual) PT INR D-Dimer POC ABG pH POC ABG pCO2 POC ABG pO2 Sodium 164 H* 159 H Potassium Chloride Carbon Dioxide BUN Creatinine Glucose POC Glucose Lactic Acid Calcium Magnesium Total Bilirubin Direct Bilirubin AST ALT Ammonia C-Reactive Protein Total Protein Albumin Triglycerides HDL Cholesterol Lipase TSH Free T4 Urine WBC (Auto) Salicylates Acetaminophen 09/05/18 09/05/18 09/05/18 01:11 02:51 03:17 WBC RBC Hgb Hct MCV RDW Plt Count Lymph % (Auto) Lymph # Seg Neutrophils % Seg Neuts % (Manual) Lymphocytes % (Manual) Seg Neutrophils # Seg Neutrophils # Man Lymphocytes # (Manual) PT INR D-Dimer POC ABG pH 7.340 L POC ABG pCO2 57.8 H POC ABG pO2 74 L Sodium 152 H Potassium Chloride Carbon Dioxide BUN Creatinine Glucose POC Glucose 116 H Lactic Acid Calcium Magnesium Total Bilirubin Direct Bilirubin AST ALT Ammonia C-Reactive Protein Total Protein Albumin Triglycerides HDL Cholesterol Lipase TSH Free T4 Urine WBC (Auto) Salicylates Acetaminophen 09/05/18 09/05/18 09/05/18 07:45 10:34 15:21 WBC RBC Hgb Hct MCV RDW Plt Count Lymph % (Auto) Lymph # Seg Neutrophils % Seg Neuts % (Manual) Lymphocytes % (Manual) Seg Neutrophils # Seg Neutrophils # Man Lymphocytes # (Manual) PT INR D-Dimer POC ABG pH POC ABG pCO2 POC ABG pO2 Sodium 156 H 153 H Potassium Chloride Carbon Dioxide BUN Creatinine Glucose POC Glucose Lactic Acid Calcium Magnesium Total Bilirubin Direct Bilirubin AST ALT Ammonia 61.0 H C-Reactive Protein Total Protein Albumin Triglycerides HDL Cholesterol Lipase TSH Free T4 Urine WBC (Auto) Salicylates Acetaminophen 09/06/18 09/06/18 09/06/18 05:10 05:10 08:43 WBC RBC 5.06 H Hgb Hct 47.8 H D MCV RDW 15.3 H Plt Count Lymph % (Auto) Lymph # Seg Neutrophils % Seg Neuts % (Manual) Lymphocytes % (Manual) Seg Neutrophils # Seg Neutrophils # Man Lymphocytes # (Manual) PT INR D-Dimer POC ABG pH POC ABG pCO2 POC ABG pO2 Sodium 155 H 150 H Potassium Chloride 117.0 H Carbon Dioxide BUN 36 H Creatinine Glucose 143 H POC Glucose Lactic Acid Calcium Magnesium Total Bilirubin Direct Bilirubin AST ALT Ammonia C-Reactive Protein Total Protein Albumin Triglycerides HDL Cholesterol Lipase TSH Free T4 Urine WBC (Auto) Salicylates Acetaminophen 01/09/06/18 09/06/18 13:21 15:11 16:23 WBC RBC Hgb Hct MCV RDW Plt Count Lymph % (Auto) Lymph # Seg Neutrophils % Seg Neuts % (Manual) Lymphocytes % (Manual) Seg Neutrophils # Seg Neutrophils # Man Lymphocytes # (Manual) PT INR D-Dimer POC ABG pH POC ABG pCO2 49.1 H POC ABG pO2 107 H Sodium 151 H Potassium Chloride Carbon Dioxide BUN Creatinine Glucose POC Glucose 120 H Lactic Acid Calcium Magnesium Total Bilirubin Direct Bilirubin AST ALT Ammonia C-Reactive Protein Total Protein Albumin Triglycerides HDL Cholesterol Lipase TSH Free T4 Urine WBC (Auto) Salicylates Acetaminophen 09/06/18 09/07/18 09/07/18 21:58 00:25 02:49 WBC RBC 5.32 H Hgb 16.1 H Hct 50.2 H MCV 95 H RDW 15.6 H Plt Count Lymph % (Auto) Lymph # Seg Neutrophils % Seg Neuts % (Manual) Lymphocytes % (Manual) Seg Neutrophils # Seg Neutrophils # Man Lymphocytes # (Manual) PT INR D-Dimer POC ABG pH POC ABG pCO2 POC ABG pO2 Sodium 150 H Potassium Chloride Carbon Dioxide BUN Creatinine Glucose POC Glucose Lactic Acid Calcium Magnesium Total Bilirubin Direct Bilirubin AST ALT Ammonia C-Reactive Protein 9.00 H Total Protein Albumin Triglycerides HDL Cholesterol Lipase TSH Free T4 Urine WBC (Auto) Salicylates Acetaminophen 09/07/18 09/07/18 09/07/18 02:49 03:43 09:17 WBC RBC Hgb Hct MCV RDW Plt Count Lymph % (Auto) Lymph # Seg Neutrophils % Seg Neuts % (Manual) Lymphocytes % (Manual) Seg Neutrophils # Seg Neutrophils # Man Lymphocytes # (Manual) PT INR D-Dimer POC ABG pH POC ABG pCO2 46.5 H POC ABG pO2 Sodium 149 H 155 H Potassium 5.2 H D Chloride 116.1 H Carbon Dioxide 21 L BUN 47 H Creatinine Glucose 122 H POC Glucose Lactic Acid Calcium Magnesium Total Bilirubin 1.80 H Direct Bilirubin AST 83 H ALT Ammonia C-Reactive Protein Total Protein Albumin 1.8 L Triglycerides HDL Cholesterol Lipase TSH Free T4 Urine WBC (Auto) Salicylates Acetaminophen 09/07/18 09/08/18 09/08/18 16:02 00:14 00:51 WBC RBC Hgb Hct MCV RDW Plt Count Lymph % (Auto) Lymph # Seg Neutrophils % Seg Neuts % (Manual) Lymphocytes % (Manual) Seg Neutrophils # Seg Neutrophils # Man Lymphocytes # (Manual) PT INR D-Dimer POC ABG pH POC ABG pCO2 POC ABG pO2 Sodium 156 H 154 H Potassium Chloride Carbon Dioxide BUN Creatinine Glucose POC Glucose Lactic Acid Calcium Magnesium Total Bilirubin Direct Bilirubin AST ALT Ammonia C-Reactive Protein Total Protein Albumin Triglycerides HDL Cholesterol Lipase TSH Free T4 Urine WBC (Auto) 41.0 H Salicylates Acetaminophen 09/08/18 09/08/18 09/08/18 04:22 04:22 04:46 WBC RBC Hgb Hct MCV 95 H RDW 15.3 H Plt Count Lymph % (Auto) Lymph # Seg Neutrophils % Seg Neuts % (Manual) Lymphocytes % (Manual) Seg Neutrophils # Seg Neutrophils # Man Lymphocytes # (Manual) PT INR D-Dimer POC ABG pH POC ABG pCO2 55.3 H POC ABG pO2 77 L Sodium 153 H Potassium 3.5 L D Chloride 114.8 H Carbon Dioxide BUN 69 H Creatinine Glucose 277 H POC Glucose Lactic Acid Calcium Magnesium Total Bilirubin Direct Bilirubin AST 44 H ALT Ammonia C-Reactive Protein Total Protein 5.6 L Albumin 2.4 L Triglycerides HDL Cholesterol Lipase TSH Free T4 Urine WBC (Auto) Salicylates Acetaminophen 09/08/18 09/08/18 09/08/18 08:40 12:03 15:43 WBC RBC Hgb Hct MCV RDW Plt Count Lymph % (Auto) Lymph # Seg Neutrophils % Seg Neuts % (Manual) Lymphocytes % (Manual) Seg Neutrophils # Seg Neutrophils # Man Lymphocytes # (Manual) PT INR D-Dimer POC ABG pH POC ABG pCO2 POC ABG pO2 Sodium 154 H 152 H Potassium Chloride Carbon Dioxide BUN Creatinine Glucose POC Glucose 186 H Lactic Acid Calcium Magnesium Total Bilirubin Direct Bilirubin AST ALT Ammonia C-Reactive Protein Total Protein Albumin Triglycerides HDL Cholesterol Lipase TSH Free T4 Urine WBC (Auto) Salicylates Acetaminophen 09/08/18 09/08/18 09/09/18 17:57 23:54 04:01 WBC RBC Hgb Hct MCV 95 H RDW 15.3 H Plt Count 130 L Lymph % (Auto) Lymph # Seg Neutrophils % Seg Neuts % (Manual) Lymphocytes % (Manual) Seg Neutrophils # Seg Neutrophils # Man Lymphocytes # (Manual) PT INR D-Dimer POC ABG pH POC ABG pCO2 POC ABG pO2 Sodium Potassium Chloride Carbon Dioxide BUN Creatinine Glucose POC Glucose 252 H 297 H Lactic Acid Calcium Magnesium Total Bilirubin Direct Bilirubin AST ALT Ammonia C-Reactive Protein Total Protein Albumin Triglycerides HDL Cholesterol Lipase TSH Free T4 Urine WBC (Auto) Salicylates Acetaminophen 09/09/18 09/09/18 09/09/18 04:01 04:33 05:32 WBC RBC Hgb Hct MCV RDW Plt Count Lymph % (Auto) Lymph # Seg Neutrophils % Seg Neuts % (Manual) Lymphocytes % (Manual) Seg Neutrophils # Seg Neutrophils # Man Lymphocytes # (Manual) PT INR D-Dimer POC ABG pH 7.267 L POC ABG pCO2 76.6 H POC ABG pO2 69 L Sodium 150 H Potassium Chloride 110.9 H Carbon Dioxide 32 H BUN 62 H Creatinine Glucose 220 H POC Glucose 196 H Lactic Acid Calcium 10.3 H Magnesium Total Bilirubin Direct Bilirubin AST ALT Ammonia C-Reactive Protein Total Protein Albumin Triglycerides HDL Cholesterol Lipase TSH Free T4 Urine WBC (Auto) Salicylates Acetaminophen 09/09/18 09/09/18 09/09/18 11:40 17:57 23:36 WBC RBC Hgb Hct MCV RDW Plt Count Lymph % (Auto) Lymph # Seg Neutrophils % Seg Neuts % (Manual) Lymphocytes % (Manual) Seg Neutrophils # Seg Neutrophils # Man Lymphocytes # (Manual) PT INR D-Dimer POC ABG pH POC ABG pCO2 POC ABG pO2 Sodium Potassium Chloride Carbon Dioxide BUN Creatinine Glucose POC Glucose 217 H 172 H 131 H Lactic Acid Calcium Magnesium Total Bilirubin Direct Bilirubin AST ALT Ammonia C-Reactive Protein Total Protein Albumin Triglycerides HDL Cholesterol Lipase TSH Free T4 Urine WBC (Auto) Salicylates Acetaminophen 09/10/18 09/10/18 09/10/18 05:07 05:07 05:51 WBC RBC Hgb Hct MCV RDW Plt Count 115 L Lymph % (Auto) Lymph # Seg Neutrophils % Seg Neuts % (Manual) 95.0 H Lymphocytes % (Manual) 3.0 L Seg Neutrophils # Seg Neutrophils # Man Lymphocytes # (Manual) 0.2 L PT INR D-Dimer POC ABG pH POC ABG pCO2 POC ABG pO2 Sodium 146 H Potassium Chloride Carbon Dioxide 33 H BUN 46 H Creatinine 0.7 L Glucose 174 H POC Glucose 169 H Lactic Acid Calcium 10.3 H Magnesium Total Bilirubin Direct Bilirubin AST ALT Ammonia C-Reactive Protein Total Protein Albumin Triglycerides HDL Cholesterol Lipase TSH Free T4 Urine WBC (Auto) Salicylates Acetaminophen 09/10/18 09/10/18 09/10/18 14:25 15:02 17:48 WBC RBC Hgb Hct MCV RDW Plt Count Lymph % (Auto) Lymph # Seg Neutrophils % Seg Neuts % (Manual) Lymphocytes % (Manual) Seg Neutrophils # Seg Neutrophils # Man Lymphocytes # (Manual) PT INR D-Dimer POC ABG pH POC ABG pCO2 62.6 H POC ABG pO2 Sodium Potassium Chloride Carbon Dioxide BUN Creatinine Glucose POC Glucose 240 H 185 H Lactic Acid Calcium Magnesium Total Bilirubin Direct Bilirubin AST ALT Ammonia C-Reactive Protein Total Protein Albumin Triglycerides HDL Cholesterol Lipase TSH Free T4 Urine WBC (Auto) Salicylates Acetaminophen 09/10/18 09/11/18 09/11/18 23:28 04:25 04:38 WBC RBC Hgb Hct MCV RDW Plt Count Lymph % (Auto) Lymph # Seg Neutrophils % Seg Neuts % (Manual) Lymphocytes % (Manual) Seg Neutrophils # Seg Neutrophils # Man Lymphocytes # (Manual) PT INR D-Dimer POC ABG pH 7.487 H POC ABG pCO2 52.3 H POC ABG pO2 61 L Sodium 146 H Potassium Chloride Carbon Dioxide 37 H BUN 38 H Creatinine Glucose 254 H POC Glucose 132 H Lactic Acid Calcium 10.7 H Magnesium Total Bilirubin Direct Bilirubin AST ALT Ammonia C-Reactive Protein Total Protein Albumin Triglycerides HDL Cholesterol Lipase TSH Free T4 Urine WBC (Auto) Salicylates Acetaminophen 09/11/18 09/11/18 09/11/18 05:09 11:58 17:54 WBC RBC Hgb Hct MCV RDW Plt Count Lymph % (Auto) Lymph # Seg Neutrophils % Seg Neuts % (Manual) Lymphocytes % (Manual) Seg Neutrophils # Seg Neutrophils # Man Lymphocytes # (Manual) PT INR D-Dimer POC ABG pH 7.538 H POC ABG pCO2 50.4 H POC ABG pO2 78 L Sodium Potassium Chloride Carbon Dioxide BUN Creatinine Glucose POC Glucose 190 H 126 H Lactic Acid Calcium Magnesium Total Bilirubin Direct Bilirubin AST ALT Ammonia C-Reactive Protein Total Protein Albumin Triglycerides HDL Cholesterol Lipase TSH Free T4 Urine WBC (Auto) Salicylates Acetaminophen 09/11/18 09/12/18 09/12/18 23:44 05:29 05:36 WBC RBC Hgb Hct MCV RDW Plt Count Lymph % (Auto) Lymph # Seg Neutrophils % Seg Neuts % (Manual) Lymphocytes % (Manual) Seg Neutrophils # Seg Neutrophils # Man Lymphocytes # (Manual) PT INR D-Dimer POC ABG pH 7.534 H POC ABG pCO2 50.4 H POC ABG pO2 Sodium Potassium Chloride Carbon Dioxide BUN Creatinine Glucose POC Glucose 119 H Lactic Acid Calcium Magnesium 2.40 H Total Bilirubin Direct Bilirubin AST ALT Ammonia C-Reactive Protein Total Protein Albumin Triglycerides HDL Cholesterol Lipase TSH Free T4 Urine WBC (Auto) Salicylates Acetaminophen 09/12/18 09/12/18 09/12/18 08:05 08:05 17:10 WBC 11.7 H RBC Hgb Hct MCV RDW Plt Count 124 L Lymph % (Auto) Lymph # Seg Neutrophils % Seg Neuts % (Manual) 89.0 H Lymphocytes % (Manual) 9.0 L Seg Neutrophils # Seg Neutrophils # Man 10.4 H Lymphocytes # (Manual) 1.1 L PT INR D-Dimer POC ABG pH POC ABG pCO2 POC ABG pO2 Sodium Potassium Chloride 97.1 L Carbon Dioxide 38 H BUN 34 H Creatinine 0.7 L Glucose 127 H POC Glucose 134 H Lactic Acid Calcium 10.3 H Magnesium Total Bilirubin Direct Bilirubin AST ALT Ammonia C-Reactive Protein Total Protein Albumin Triglycerides HDL Cholesterol Lipase TSH Free T4 Urine WBC (Auto) Salicylates Acetaminophen 09/13/18 09/13/18 09/13/18 00:09 04:41 04:41 WBC 11.5 H RBC 5.15 H Hgb Hct 47.2 H MCV RDW Plt Count 129 L Lymph % (Auto) Lymph # Seg Neutrophils % Seg Neuts % (Manual) 89.0 H Lymphocytes % (Manual) 5.0 L Seg Neutrophils # Seg Neutrophils # Man 10.2 H Lymphocytes # (Manual) 0.6 L PT INR D-Dimer POC ABG pH POC ABG pCO2 POC ABG pO2 Sodium Potassium Chloride 96.6 L Carbon Dioxide 34 H BUN 38 H Creatinine Glucose 197 H POC Glucose 149 H Lactic Acid Calcium Magnesium Total Bilirubin Direct Bilirubin AST ALT Ammonia C-Reactive Protein Total Protein Albumin Triglycerides HDL Cholesterol Lipase TSH Free T4 Urine WBC (Auto) Salicylates Acetaminophen 09/13/18 09/13/18 09/14/18 05:10 17:16 05:51 WBC RBC Hgb Hct MCV RDW Plt Count Lymph % (Auto) Lymph # Seg Neutrophils % Seg Neuts % (Manual) Lymphocytes % (Manual) Seg Neutrophils # Seg Neutrophils # Man Lymphocytes # (Manual) PT INR D-Dimer POC ABG pH POC ABG pCO2 POC ABG pO2 Sodium Potassium Chloride Carbon Dioxide BUN Creatinine Glucose POC Glucose 199 H 220 H 204 H Lactic Acid Calcium Magnesium Total Bilirubin Direct Bilirubin AST ALT Ammonia C-Reactive Protein Total Protein Albumin Triglycerides HDL Cholesterol Lipase TSH Free T4 Urine WBC (Auto) Salicylates Acetaminophen 09/14/18 09/14/18 09/15/18 11:32 17:17 06:58 WBC RBC Hgb Hct MCV RDW Plt Count 121 L Lymph % (Auto) Lymph # Seg Neutrophils % Seg Neuts % (Manual) 81.0 H Lymphocytes % (Manual) Seg Neutrophils # Seg Neutrophils # Man Lymphocytes # (Manual) PT INR D-Dimer POC ABG pH POC ABG pCO2 POC ABG pO2 Sodium Potassium Chloride Carbon Dioxide BUN Creatinine Glucose POC Glucose 149 H 170 H Lactic Acid Calcium Magnesium Total Bilirubin Direct Bilirubin AST ALT Ammonia C-Reactive Protein Total Protein Albumin Triglycerides HDL Cholesterol Lipase TSH Free T4 Urine WBC (Auto) Salicylates Acetaminophen 09/15/18 09/15/18 09/16/18 06:58 17:18 06:43 WBC RBC Hgb Hct MCV RDW Plt Count Lymph % (Auto) Lymph # Seg Neutrophils % Seg Neuts % (Manual) Lymphocytes % (Manual) Seg Neutrophils # Seg Neutrophils # Man Lymphocytes # (Manual) PT INR D-Dimer POC ABG pH POC ABG pCO2 POC ABG pO2 Sodium Potassium 3.4 L Chloride 95.9 L Carbon Dioxide 35 H 32 H BUN 39 H 34 H Creatinine 0.7 L Glucose 104 H POC Glucose 113 H Lactic Acid Calcium Magnesium Total Bilirubin Direct Bilirubin AST 48 H 59 H ALT 95 H 114 H Ammonia C-Reactive Protein Total Protein 5.2 L 5.2 L Albumin 2.5 L 2.5 L Triglycerides HDL Cholesterol Lipase TSH Free T4 Urine WBC (Auto) Salicylates Acetaminophen 09/16/18 09/16/18 09/16/18 06:55 11:57 19:31 WBC RBC Hgb Hct MCV RDW Plt Count 99 L Lymph % (Auto) Lymph # Seg Neutrophils % Seg Neuts % (Manual) 76.0 H Lymphocytes % (Manual) Seg Neutrophils # Seg Neutrophils # Man Lymphocytes # (Manual) 1.0 L PT INR D-Dimer POC ABG pH POC ABG pCO2 POC ABG pO2 Sodium Potassium Chloride Carbon Dioxide BUN Creatinine Glucose POC Glucose 180 H 69 L Lactic Acid Calcium Magnesium Total Bilirubin Direct Bilirubin AST ALT Ammonia C-Reactive Protein Total Protein Albumin Triglycerides HDL Cholesterol Lipase TSH Free T4 Urine WBC (Auto) Salicylates Acetaminophen 0209/16/18 09/17/18 20:44 23:38 04:52 WBC RBC Hgb Hct MCV RDW Plt Count 112 L Lymph % (Auto) Lymph # Seg Neutrophils % Seg Neuts % (Manual) 72.0 H Lymphocytes % (Manual) Seg Neutrophils # Seg Neutrophils # Man Lymphocytes # (Manual) PT INR D-Dimer POC ABG pH POC ABG pCO2 POC ABG pO2 Sodium Potassium Chloride Carbon Dioxide BUN Creatinine Glucose POC Glucose 144 H 138 H Lactic Acid Calcium Magnesium Total Bilirubin Direct Bilirubin AST ALT Ammonia C-Reactive Protein Total Protein Albumin Triglycerides HDL Cholesterol Lipase TSH Free T4 Urine WBC (Auto) Salicylates Acetaminophen 09/17/18 09/17/18 09/17/18 04:52 12:08 16:48 WBC RBC Hgb Hct MCV RDW Plt Count Lymph % (Auto) Lymph # Seg Neutrophils % Seg Neuts % (Manual) Lymphocytes % (Manual) Seg Neutrophils # Seg Neutrophils # Man Lymphocytes # (Manual) PT INR D-Dimer POC ABG pH POC ABG pCO2 POC ABG pO2 Sodium Potassium 3.2 L D Chloride 97.6 L Carbon Dioxide 33 H BUN 29 H Creatinine 0.7 L Glucose POC Glucose 112 H 196 H Lactic Acid Calcium Magnesium Total Bilirubin Direct Bilirubin AST 46 H ALT 106 H Ammonia C-Reactive Protein Total Protein 5.0 L Albumin 2.4 L Triglycerides HDL Cholesterol Lipase TSH Free T4 Urine WBC (Auto) Salicylates Acetaminophen 09/18/18 09/18/18 09/18/18 07:23 11:19 16:23 WBC RBC Hgb Hct MCV RDW Plt Count Lymph % (Auto) Lymph # Seg Neutrophils % Seg Neuts % (Manual) Lymphocytes % (Manual) Seg Neutrophils # Seg Neutrophils # Man Lymphocytes # (Manual) PT INR D-Dimer POC ABG pH POC ABG pCO2 POC ABG pO2 Sodium Potassium Chloride Carbon Dioxide BUN Creatinine Glucose POC Glucose 139 H 135 H 249 H Lactic Acid Calcium Magnesium Total Bilirubin Direct Bilirubin AST ALT Ammonia C-Reactive Protein Total Protein Albumin Triglycerides HDL Cholesterol Lipase TSH Free T4 Urine WBC (Auto) Salicylates Acetaminophen 09/18/18 09/19/18 09/19/18 22:36 03:52 03:52 WBC RBC Hgb Hct MCV RDW Plt Count 123 L Lymph % (Auto) Lymph # Seg Neutrophils % Seg Neuts % (Manual) Lymphocytes % (Manual) Seg Neutrophils # Seg Neutrophils # Man Lymphocytes # (Manual) PT INR D-Dimer POC ABG pH POC ABG pCO2 POC ABG pO2 Sodium Potassium Chloride Carbon Dioxide BUN 21 H Creatinine Glucose POC Glucose 107 H Lactic Acid Calcium Magnesium Total Bilirubin Direct Bilirubin AST ALT Ammonia C-Reactive Protein Total Protein Albumin Triglycerides HDL Cholesterol Lipase TSH Free T4 Urine WBC (Auto) Salicylates Acetaminophen 09/19/18 09/19/18 05:34 07:19 WBC RBC Hgb Hct MCV RDW Plt Count Lymph % (Auto) Lymph # Seg Neutrophils % Seg Neuts % (Manual) Lymphocytes % (Manual) Seg Neutrophils # Seg Neutrophils # Man Lymphocytes # (Manual) PT INR D-Dimer POC ABG pH POC ABG pCO2 POC ABG pO2 Sodium Potassium Chloride Carbon Dioxide BUN 21 H Creatinine Glucose POC Glucose 62 L Lactic Acid Calcium Magnesium Total Bilirubin Direct Bilirubin AST ALT Ammonia C-Reactive Protein Total Protein Albumin Triglycerides HDL Cholesterol Lipase TSH Free T4 Urine WBC (Auto) Salicylates Acetaminophen Allied health notes reviewed: nursing
--- NOTE | 2018-09-19 15:16 | Discharge Summary ---
Providers - Providers Date of Admission: 09/02/18 15:03 Attending physician: MADELIN BABCOCK MD 09/02/18 15:03 Occupational Therapy Evaluate and Treat [CONS] Routine Comment: Reason For Exam: Neuro deficits Physical Therapy Evaluation and Treat [CONS] Routine Comment: Reason For Exam: Neuro deficits 09/04/18 06:54 Consult to Physician [CONS] Routine Comment: Consulting Provider: REMA ROWE Physician Instructions: Reason For Exam: RECTAL BLEEDING 09/04/18 07:49 Consult to Physician [CONS] Routine Comment: Consulting Provider: MATT ERICKSON Physician Instructions: Reason For Exam: Hypernatremia 09/06/18 08:32 Consult to Dietitian/Nutrition [CONS] Routine Physician Instructions: Reason For Exam: Reason for Consult: Write/Manage Tube Feeding 09/06/18 13:58 Consult to Physician [CONS] Routine Comment: Consulting Provider: ROSINA CALHOUN Physician Instructions: Reason For Exam: acute respiratory failure 09/06/18 15:35 Consult to Dietitian/Nutrition [CONS] Routine Physician Instructions: Reason For Exam: Reason for Consult: Evaluate nutritional intake 09/07/18 13:11 Consult to Physician [CONS] Routine Comment: Consulting Provider: BROCK RENEE Physician Instructions: Reason For Exam: AMS 09/11/18 17:14 Speech Therapy Evaluation and Treat [CONS] Routine Reason For Exam: swallow evalaution post extubation 09/15/18 12:04 Occupational Therapy Evaluate and Treat [CONS] Routine Comment: Needs SNF placement Reason For Exam: Re-eval secondary to Debility Primary care physician: LUCIO SELF Hospitalization Reason for admission: encephalopthy Condition: Stable Hospital course: 68 YO Male with Obesity Hypoventilation, COPD presents to ED for evaluation. Pt is confused, lethargic and unable to provide history. Pt history provided by his brother who is at bedside during exam and interview. As per brother, the patient has not returned phone calls over the past 4 days. As a result, the brother went to the home but the patient did not answer the door. Law Enforcement notified, and entry into the home was obtained. The patient was found down and covered in his own feces. Pt exhibited slurred speech, confusion. EMS notified and upon arrival, the patient was found to have a neurologic deficit. A code stroke was called, and the patient was transported to [facility]. Pt seen and evaluated in ED and found to have evidence of CVA as well as SIRS, Acidosis, and Encephalopathy. Pt admitted to telemetry and initiated on CVA protocol. He was intubated with concern for aspiration. Neurology consulted. Patient was started on treatment for Hypernatremia and became more encephalopathic requiring Mechanical Ventilation and ICU stay. Patient was subsequently extubated and treated for dydration likely from Encephalopathy treatment with Lactulose. His mental status continued to improve and he is stable for transfer to the SNF Sepsis Acute Metabolic encephalopathy Hypotension Delirium Acute Hypoxic Respiratory failure, COPD exacerbation Hypernatremia Rectal Bleed Aspiration Pneumonia Obesity Hypoventilation syndrome Hypoglycemia HYPOTHYRODISIM Moderate Protien calorie Malnutrition Secondary Coagulopathy ?UNDERLYING LIVER DISEASE VS IATROGENIC MEDICATION Dysphagia Diabetes mellitus Disposition: DC/[place]-03 SNF [facility] Time spent for discharge: 35 mins Core Measure Documentation - Palliative Care Palliative Care/ Comfort Measures: Not Applicable - Core Measures Any of the following diagnoses?: none Exam - Physical Exam Narrative exam: VITAL SIGNS: Reviewed. GENERAL: The patient appeared no acute distress. Vital signs as documented. HEAD: No signs of head trauma. EYES: Pupils are equal. Extraocular motions intact. EARS: Hearing grossly intact. MOUTH: Oropharynx is normal. NECK: No adenopathy, no JVD. CHEST: Chest with crackles breath sounds bilaterally. No wheezes, rales, or rhonchi. CARDIAC: Regular rate and rhythm. S1 and S2, without murmurs, gallops, or rubs. VASCULAR: No Edema. Peripheral pulses normal and equal in all extremities. ABDOMEN: Soft, without detectable tenderness. No sign of distention. No rebound or guarding, and no masses palpated. Bowel Sounds normal. MUSCULOSKELETAL: Good range of motion of all major joints. Extremities without clubbing, cyanosis or edema. NEUROLOGIC EXAM: Alert and oriented x to person and place. No focal sensory or strength deficits. Speech normal. Follows commands. PSYCHIATRIC: Mood normal. SKIN: No rash or lesions. - Constitutional Vitals: Temp Pulse Resp BP Pulse Ox 97.9 F 69 18 103/64 95 09/19/18 07:46 09/19/18 10:00 09/19/18 08:53 09/19/18 07:46 09/19/18 10:00 Plan Follow up with: ROMMEL KOROMA MD [Staff Physician] - 7 Days LUCIO SELF MD [Primary Care Provider] - 3-5 Days DYLAN PARRISH MD [Staff Physician] - 7 Days Prescriptions: buPROPion [Wellbutrin] 75 mg PO BID #30 tablet Fluticasone/Salmeterol [Advair 250-50 Diskus] 1 each IH BID 30 Days blst.w.dev Hydrocortisone 2.5% [Proctosol-Hc] 1 applic DC Q8HR #14 tube Ipratropium/Albuterol Sulfate [DUONEB *Not for PRN Use*] 1 ampul IH Q6HRT #90 ampul.neb Lactulose [Cephulac] 20 gm PO Q6HR PRN #30 oral.liqd PRN Reason: Delerium Pantoprazole [Protonix TAB] 40 mg PO QDAY #30 tablet
== END 2018-09-19 12:45 | DRG 870 ==
LOC: ED 12:06 → 4A 15:03 → 2B-ACE 09-06 12:58 → 4A 09-06 13:16 → CC1 09-06 14:10 → IMCU 09-12 14:41 → 2B-ACE 09-17 15:41
PROVIDERS: ADMIT Internal Medicine; ATTEND Internal Medicine
PROC: 4A033R1 Measurement of Arterial Saturation, Peripheral, Percutaneous Approach (ICD-10-PCS; 2018-09-02)
PROC: 5A1955Z Respiratory Ventilation, Greater than 96 Consecutive Hours (ICD-10-PCS; principal; 2018-09-06)
PROC: 0BH17EZ Insertion of Endotracheal Airway into Trachea, Via Natural or Artificial Opening (ICD-10-PCS; 2018-09-06)
PROC: 5A09357 Assistance with Respiratory Ventilation, Less than 24 Consecutive Hours, Continuous Positive Airway Pressure (ICD-10-PCS; 2018-09-11)
PROC: 5A09357 Assistance with Respiratory Ventilation, Less than 24 Consecutive Hours, Continuous Positive Airway Pressure (ICD-10-PCS; 2018-09-12)
PROC: 5A09357 Assistance with Respiratory Ventilation, Less than 24 Consecutive Hours, Continuous Positive Airway Pressure (ICD-10-PCS; 2018-09-13)
PROC: 5A09357 Assistance with Respiratory Ventilation, Less than 24 Consecutive Hours, Continuous Positive Airway Pressure (ICD-10-PCS; 2018-09-14)
PROC: 5A09357 Assistance with Respiratory Ventilation, Less than 24 Consecutive Hours, Continuous Positive Airway Pressure (ICD-10-PCS; 2018-09-15)
DX: A41.9 Sepsis, unspecified organism (principal); G93.41 Metabolic encephalopathy; J69.0 Pneumonitis due to inhalation of food and vomit; J96.01 Acute respiratory failure with hypoxia; E87.2 Acidosis; N17.9 Acute kidney failure, unspecified; E66.2 Morbid (severe) obesity with alveolar hypoventilation; E87.0 Hyperosmolality and hypernatremia; J44.1 Chronic obstructive pulmonary disease with (acute) exacerbation; F10.988 Alcohol use, unspecified with other alcohol-induced disorder; E44.0 Moderate protein-calorie malnutrition; J44.9 Chronic obstructive pulmonary disease, unspecified; Z60.2 Problems related to living alone; F17.200 Nicotine dependence, unspecified, uncomplicated; E86.0 Dehydration; E83.52 Hypercalcemia; E11.65 Type 2 diabetes mellitus with hyperglycemia; E03.9 Hypothyroidism, unspecified; Y90.0 Blood alcohol level of less than 20 mg/100 ml; K64.4 Residual hemorrhoidal skin tags; Z68.30 Body mass index [BMI] 30.0-30.9, adult
CPT/HCPCS: 31500; 36415; 36600; 70450; 70544; 70551; 71045; 71275; 74018; 80048; 80053; 80061; 80076; 80307; 80320; 81001; 82140; 82550; 82803; 82962; 83690; 83735; 83880; 84295; 84439; 84443; 84484; 85007; 85014; 85018; 85025; 85027; 85379; 85610; 85730; 86140; 87040; 87070; 87086; 87205; 93005; 93010; 93306; 93880; 93970; 94002; 94003; 94640; 94660; 94760; 95819; G0378; A9270-GY; C9113; G0480; J0696; J1630; J1650; J1815; J1940; J2060; J2543; J2704; J2920; J3010; J7030; J7040; J7070; J7512; Q9967